=== PATIENT | male | born 1995 | race Caucasian/White ===

== ENCOUNTER 2018-04-25 11:21 | Emergency (ER) | payer SELFPAY ==
[2018-04-25 11:40] VITALS: BP 125/73; PULSE 63; RESP 14; TEMP 36.9; O2SAT 98
--- NOTE | 2018-04-25 12:26 | ED.WOUNDLAC ---
HPI - Wound/Laceration <DEVYN Meyer - Last Filed: 04/25/18 19:12> General Chief Complaint: Wound/Laceration Stated Complaint: CUT HAND OPEN Time Seen by Provider: 04/25/18 12:26 Source: patient Mode of arrival: ambulatory Limitations: no limitations History of Present Illness HPI narrative: Patient states that he cut his hand with a pocket knife at approximately 11:05 a.m. this morning. He states he was trying to cut his bill. Laceration is at the base of the left thumb. Denies any range of motion difficulties. States his tetanus is about 8 or 9 years old and probably needs a new one. Denies any numbness or tingling of his thumb. Related Data Home Medications Medication Instructions Recorded Confirmed No Known Home Medications 03/31/18 04/25/18 Allergies Allergy/AdvReac Type Severity Reaction Status Date / Time bacitracin AdvReac Mild Rash Verified 03/31/18 14:31 [From Neosporin ([id number])] neomycin AdvReac Mild Rash Verified 03/31/18 14:31 [From Neosporin ([id number])] polymyxin B AdvReac Mild Rash Verified 03/31/18 14:31 [From Neosporin ([id number])] Review of Systems <HANNAH Meyer - Last Filed: 04/25/18 19:12> Review of Systems GENERAL: Denies chills, fatigue, malaise, fever, sweats. HEENT: Denies sinus pain, ear pain, sore throat, difficulty swallowing, dizziness. RESPIRATORY: Denies dyspnea, cough, wheezing, hemoptysis, sputum. CARDIOVASCULAR: Denies chest pain, palpitations, orthopnea, edema, GASTROINTESTINAL: Denies nausea, vomiting, abdominal pain, diarrhea, constipation, melena. : Denies dysuria, frequency, incontinence, hematuria, urinary retention. MUSCULOSKELETAL: denies weakness, joint pain, or bony pain SKIN: See HPI NEUROLOGIC: Denies weakness, headache, numbness, change in speech, confusion, seizures, incoordination. PSYCHIATRIC: No concerning psychosocial issues. 12 point review of systems is negative except for those stated above Exam <HANNAH Meyer - Last Filed: 04/25/18 19:12> Narrative Exam Narrative: GENERAL: This is a well-nourished, well-developed patient, in no distress with father at bedside. HEAD: Atraumatic. Normocephalic. No temporal or scalp tenderness. EYES: Pupils equal round and reactive. Extraocular motions intact. No scleral icterus. No injection or drainage. ENT: Nose without bleeding, purulent drainage or septal hematoma. Throat without erythema, tonsillar hypertrophy or exudate. Uvula midline. Airway patent. NECK: Trachea midline. No JVD or lymphadenopathy. Supple, nontender, no meningeal signs. CARDIOVASCULAR: Regular rate and rhythm RESPIRATORY: No increased respiratory effort. No coughing, accessory muscle use in emergency department EXTREMITIES: No clubbing, cyanosis, or edema. No joint tenderness, effusion, or edema noted. Full range of motion with left thumb. Capillary refill less than 2 sec left thumb. BACK: Nontender without deformity or crepitance. No flank tenderness. NEURO: AOx3. SKIN: The patient noted to have approximately 2 cm laceration at the base of his left thumb. It is oozing blood on exam. Appears to be through the dermis. Does not appear to have any tendon involvement. Edges are well approximated. Initial Vital Signs Initial Vital Signs: Vital Signs Temperature 98.5 F 04/25/18 11:40 Pulse Rate 63 04/25/18 11:40 Respiratory Rate 14 04/25/18 11:40 Blood Pressure 125/73 H 04/25/18 11:40 Pulse Oximetry 98 04/25/18 11:40 <Courtney Yu DO - Last Filed: 04/26/18 07:26> Initial Vital Signs Initial Vital Signs: Vital Signs Temperature 98.5 F 04/25/18 11:40 Pulse Rate 63 04/25/18 11:40 Respiratory Rate 14 04/25/18 11:40 Blood Pressure 125/73 H 04/25/18 11:40 Pulse Oximetry 98 04/25/18 11:40 Procedures <DEVYN Meyer - Last Filed: 04/25/18 19:12> Joint Aspiration/Injection Laceration 1: Site: hand Side (If applicable): left Size (cm): 2 Description: linear Depth: simple, single layer Local Anesthetic: lidocaine 2% Amount of anesthesia used (mL): 2 Pre-repair: wound explored, irrigated extensively and deep structures intact Skin layer closed with: nylon Size (cm): 5-0 Number of sutures: 4 Technique: simple, interrupted Course <HANNAH MeyerBC - Last Filed: 04/25/18 19:12> Hospital Course: Patient presents with laceration. His wound was numbed, cleaned, explored and closed as documented in laceration repair procedure. His tetanus was updated. I discussed at length with him monitoring for signs and symptoms of infection including redness, pus from the site. Patient and father had no questions or concerns upon discharge. Orders Ordered: Discontinued Medications Tetanus/Diphtheria Toxoids (Td) 0.5 ml IM .ONCE ONE Stop: 04/25/18 12:45 Last Admin: 04/25/18 13:24 Dose: 0.5 ml Vital Signs - 8 hr 04/25/18 11:40 04/25/18 13:48 Temperature 98.5 F Pulse Rate 63 74 Respiratory Rate 14 16 Blood Pressure 125/73 H 120/72 Pulse Oximetry 98 98 <Courtney Yu DO - Last Filed: 04/26/18 07:26> Orders Ordered: Discontinued Medications Tetanus/Diphtheria Toxoids (Td) 0.5 ml IM .ONCE ONE Stop: 04/25/18 12:45 Last Admin: 04/25/18 13:24 Dose: 0.5 ml Vital Signs - 8 hr 04/25/18 11:40 04/25/18 13:48 Temperature 98.5 F Pulse Rate 63 74 Respiratory Rate 14 16 Blood Pressure 125/73 H 120/72 Pulse Oximetry 98 98 MDM - Wound/Laceration <HANNAH MeyerBC - Last Filed: 04/25/18 19:12> Differential Diagnosis Differential diagnosis: Likely laceration MDM Narrative Medical decision making narrative: Patient presented with a simple, clean laceration was left hand at the base of his thumb. He had full range of motion and the wound did not involve deep layers. It was closed as noted in the procedural note. His tetanus was updated as well. I discussed at length with him signs and symptoms of infection and he had no questions or concerns upon discharge. Discharge Plan Departure Patient Disposition: Home, Self-Care Clinical Impression: Laceration Discharge Date/Time: 04/25/18 13:49 Interventions: ED Discharge Assessment Last Done: 04/25/18 13:48 Instructions: How to Care for a Laceration After Repair, DI for Laceration Repair -- Simple Activity Restrictions/Additional Instructions: Today I did 4 stitches at the base of her thumb. Please monitor your laceration for signs and symptoms of infection. This includes streaking redness or pus coming from the incision site. Please follow-up in about 7 days for suture removal. He can do this with her primary care provider or feel free to come back here. We also updated your tetanus. Prescriptions: No Action No Known Home Medications RF: 0 Stand Alone Forms: Work/School Restrictions <Courtney Yu DO - Last Filed: 04/26/18 07:26> Cosign ED Attending Loydature Attestation: I was immediately available in the department for consultation. Documentation has been reviewed. I agree with assessment and plan.
[2018-04-25] MEDS: TETANUS DIPHTHERIA TOXOIDS 0.5 ML VIAL IM (13:24)
[2018-04-25 13:48] VITALS: BP 120/72; PULSE 74; RESP 16; O2SAT 98
== END 2018-04-25 13:49 | disposition home or self-care (01) ==
PROVIDERS: Emergency Provider Nurse Practitioner Family
DX: S61.412A Laceration without foreign body of left hand, initial encounter (principal); W26.0XXA Contact with knife, initial encounter
CPT/HCPCS: 12001; 90471; 90714; 99283

== ENCOUNTER → 2018-12-18 11:42 | Outpatient (CLI) | payer OTHER, SELFPAY ==
--- NOTE | 2018-12-18 11:44 | DI.RAD.S_ITS ---
PROCEDURE: XR SHOULDER RT MIN 2V INDICATIONS: R shoulder pain TECHNIQUE: 3 views of the shoulder were acquired. COMPARISON: None. FINDINGS: Bones: No fractures or dislocations. No suspicious bony lesions. Visualized ribs appear intact. Soft tissues: No suspicious soft tissue calcifications. IMPRESSION: No acute osseous abnormality of the right shoulder. Dictated by: Tin Patricio M.D. on 12/18/2018 at 10:56 Approved by: Tin Patricio M.D. on 12/18/2018 at 10:57
== END ==
PROVIDERS: Visit Provider Physician Assistant
DX: M25.511 Pain in right shoulder (principal)
CPT/HCPCS: 73030

== ENCOUNTER → 2018-12-25 16:25 | Outpatient (CLI) | payer OTHER, SELFPAY ==
--- NOTE | 2018-12-25 16:26 | DI.MRI.S_ITS ---
PROCEDURE: MR SHOULDER RT WO CON INDICATIONS: Right shoulder pain TECHNIQUE: Noncontrast oblique coronal T2 fast spin echo with fat saturation, oblique sagittal T1 spin echo and T2 fast spin echo with fat saturation, axial T1 spin echo and T2 fast spin echo with fat saturation through the shoulder. COMPARISON: [facility], CR, XR SHOULDER RT MIN 2V, 12/18/2018, 11:42. FINDINGS: Image quality: Excellent. Rotator cuff: There is partial thickness tear involving the bursal surface of the distal supraspinatus tendon. The infraspinatus and subscapularis tendons appear intact throughout. Sagittal images demonstrate no muscle atrophy. Bones and bursae: No bone marrow contusions or fractures. No acromioclavicular joint degeneration. The acromion demonstrates conventional anatomy, without an os acromiale. No pathologic subacromial-subdeltoid or subcoracoid bursal fluid is present. Capsule and soft tissues: In the absence of intra-articular contrast, the labrum and glenohumeral ligaments appear intact. The long head of the biceps tendon demonstrates normal location and morphology. The rotator interval appears normal, without fibrosis. The coracohumeral ligament is normal in thickness. IMPRESSION: 1. Partial thickness tear of the supraspinatus tendon. No tendon retraction or supraspinatus muscle atrophy. Dictated by: Eric Sommers M.D. on 12/26/2018 at 10:51 Approved by: Eric Sommers M.D. on 12/26/2018 at 18:11
== END ==
PROVIDERS: Visit Provider Physician Assistant
DX: M25.511 Pain in right shoulder (principal); M75.111 Incomplete rotator cuff tear or rupture of right shoulder, not specified as traumatic
CPT/HCPCS: 73221

== ENCOUNTER 2019-08-02 12:00 | Outpatient (RCR) | payer OTHER, SELFPAY ==
--- NOTE | 2019-01-23 17:34 | PT.OPPOC ---
Current Diagnoses Strain of unspecified muscle, fascia and tendon at shoulder and upper arm level, right arm, initial encounter (01/23/19) Provider Visit Care Team Role Provider Type Gia Zaman PA-C Attending Provider Advanced Director Nicu Specialty: Medical Address: [address] [place] [address], [facility] Email: Plan Of Care PT-OP-T Assessment and Plan Start: 01/23/19 17:02 Freq: Status: Active Protocol: Document 01/23/19 17:03 EA (Rec: 01/23/19 17:40 EA [id number]) Physical Therapy Assessment Rehab Potential Rehabilitation Potential Good Evaluation Complexity Number of Personal Factors/Comorbidities 0 Number of Body Systems Impaired 1-2 Clinical Presentation at Evaluation Stable Impairments Impairments Functional Activities Pain ROM Soft Tissue Mobility Strength Goals Four Impairment NO HEP in place Fci Goal (LTG) Patient will perform HEP (Home exercise program) independently LTG Duration 3 wks Three Impairment Impaired shoulder strength Fci Goal (LTG) Patient will increase shoulder ABD/F/ER strength by 1/2 grade for arm functional use. LTG Duration 4 wks Two Impairment Impaired left shoulder ROM Senior Supplier Quality Engineer Goal (LTG) Patient will increase left shoulder flexion/ABD/ER AROM to functional range to enhance shoulder functional mobility LTG Duration 4 wks One Impairment quick Dash functional UE score of 70 Fci Goal (LTG) Patient will have Quick Dask functional score of 35 LTG Duration 4 wks Assessment Summary Assessment Pleasant 23 y/o M patient with a referring diagnosis of right shoulder strain. Today patient demonstrates impaired L shoulder mobility due to weakness, pain, and decreased ROM. Ocular inspections reveals arm is protected to side with decreased arm swing. No atrophy noted at this time . Left shoulder AROM motion reveals less than functional overhead range and with muscle guarding during PROM. Special tests reveals positive with Dow, Lift off and pain at painful arc range. Due to above mentioned dysfunction, patient is unable to perform activities that require pulling and lifting over shoulder and head. Patient is a good candidate for skilled PT and likely will reach functional goals. Physical Therapy Plan Frequency and Duration Frequency of Treatment 2x/Week Duration of Treatment 8 wks Plan of Care Start Date 01/23/19 Plan of Care End Date 03/20/19 Therapeutic Interventions Therapeutic Interventions Home Exercise Program Joint Mobilizations Manual Therapy Patient/Caregiver Education Self-Care/Home Management Soft Tissue Mobilization Taping Therapeutic Exercises Modalities Cold Pack/Ice Massage Electric Stimulation Hot Packs Ultrasound Next Visit Focus/Plan Next Note Type Treatment Note Next Visit Plan Provide HEP with images (ROM exercises/stretching), decrease pain by using modalities, joint mobilization for pain/muscle guarding Plan of Care Dates Plan of Care Start Date 01/23/19 Plan of Care End Date 03/20/19 Please Sign and Return: I have reviewed this Plan of Care and certify that the skilled therapy services above are required to meet the patient?s needs. Physician Signature Date Printed Name and Credentials Clinical Instructor Signature Printed Name and Credentials
--- NOTE | 2019-01-23 17:34 | PT.OIE ---
Current Diagnoses Strain of unspecified muscle, fascia and tendon at shoulder and upper arm level, right arm, initial encounter (01/23/19) Past Medical History (Last Updated 03/31/18 @ 17:21 by Graciela Graham PA-C) Diarrhea (Chronic) Past Surgical History (Last Updated 03/31/18 @ 17:21 by Graciela Graham PA-C) Hx of cholecystectomy (Chronic) Provider Visit Care Team Role Provider Type Gia Zaman PA-C Attending Provider Advanced Nursing Associate Specialty: Medical Address: [address] [place] [address], [facility] Email: Physical Therapy Initial Evaluation PT-OP-A Visit Information Start: 01/23/19 17:02 Freq: Status: Active Protocol: Document 01/23/19 17:03 EA (Rec: 01/23/19 17:40 EA [id number]) Out-Patient Physical Therapy Visit Information Visit Information Visit Type Initial Evaluation Visit Start Time 16:00 Visit Stop Time 16:45 Total Visit Minutes 45 Visit Number 1 Evaluation Information Evaluation Date 01/23/19 PT-OP-B Current Condition Start: 01/23/19 17:02 Freq: Status: Active Protocol: Document 01/23/19 17:03 EA (Rec: 01/23/19 17:40 EA [id number]) Current Condition History of Current Condition Onset Date 12/14/2018 Current Complaints Left shoulder elevation difficulty due to pain and weakness History of Current Condition Patient reports present condition started 12/14/18 while lifting box of powder with 50 lbs weight to transfer to mixer; he states that popped sound felt accompanied with pain and numbness to right shoulder and arm. Patient reports incident report filed and work for three more days. Pt mentioned pain and weakness did not resolved and prompted him to see a doctor which given pain meds and ordered X-ray and MRI . Prior Treatments and Tests MRI: reveals partial tear to right SS Future Testing and Treatments Planned None identified Treatment Goals Patient/Caregiver Goals Patient wants to get back to previous level of function Prior Functional Status Baseline Function- ADL's Independent Baseline Function- Mobility Independent Baseline Function- Gait indep Baseline Function- Work/School Works active with lots of lifting, pulling and pushing. Baseline Function- Recreation/Hobbies Home personal fitness workout Current Functional Impairments (Reported) Functional Limitations- ADL's Difficulty in all activities that requires shoulder overhead movements, lifting, pulling and pushing. Functional Limitations- Mobility/Gait Indep Functional Limitations- Work/School Out of work 3 days after the injury until to this date. Functional Limitations- Recreation/ Unable to perform personal Hobbies fitness program PT-OP-C Subjective Start: 01/23/19 17:02 Freq: Status: Active Protocol: Document 01/23/19 17:03 EA (Rec: 01/23/19 17:40 EA [id number]) OP-PT Subjective Patient Comments Patient Comments Patients wants to get back to previous level of function. Patient Reported Progress Same Patient Questionnaires Quick Dash- Upper Extremity Quick Dash UE Score 70 Quick Dash UE Impairment 60 to 79% Impaired (Score 60- 79) PT-OP-E Functional Tests Start: 01/23/19 17:02 Freq: Status: Active Protocol: Document 01/23/19 17:03 EA (Rec: 01/23/19 17:40 EA [id number]) Functional Tests Apley's Scratch Test Action 1: The subject is instructed to touch the opposite shoulder with his/her hand. This motion checks Glenohumeral adduction, internal rotation , horizontal adduction and scapular protraction Action 2: The subject is instructed to place his/her arm overhead and reach behind the neck to touch his/her upper back. This motion checks Glenohumeral abduction, external rotation and scapular upward rotation and elevation. Action 3: The subject puts his/her hand on the lower back and reaches upward as far as possible. This motion checks glenohumeral adduction, internal rotation and scapular retraction with downward rotation Action 1- Left able Action 1- Right able Action 2- Left T2 Action 2- Right C7 Action 3- Left T4 Action 3- Right L1 PT-OP-F Manual Assessment Start: 01/23/19 17:02 Freq: Status: Active Protocol: Document 01/23/19 17:03 EA (Rec: 01/23/19 17:40 EA [id number]) Manual Assessments Soft Tissue Assessment Soft Tissue Mobility Assessment Tight right shoulder adductors , anterior capsules. Joint Mobility Assessment Joint Mobility Assessment Hypo (Muscle guarding) PT-OP-J Posture/Palpation/Skin Start: 01/23/19 17:02 Freq: Status: Active Protocol: Document 01/23/19 17:03 EA (Rec: 01/23/19 17:40 EA [id number]) Posture Evaluation Position Standing Evaluation View post/lat Head/C-Spine Posture Forward Head T-Spine Posture Neutral L-Spine Posture Neutral Shoulder Posture (R) Rounded Comments Posture Comments Slight forward head with WFL trunk posture. Palpation Assessment Location One Palpation Location right shoulder: anterior/post/ lateral Palpation Findings Soft Tissue Tightness Tenderness Palpation Details grade 3/4 tender over SS/IS tendon, subacromial joint, and right scapular muscle PT-OP-K Range of Motion Start: 01/23/19 17:02 Freq: Status: Active Protocol: Document 01/23/19 17:03 EA (Rec: 01/23/19 17:40 EA [id number]) Shoulder Goniometric Range of Motion Shoulder Measured in Degrees Right Active Testing Position sitting and supine Flexion 100 Extension 45 Abduction 90 External Rotation at 90 degrees 80 Abduction Internal Rotation 30 Shoulder ROM Limitations Shoulder ROM Limitations Soft Tissue Tightness Muscle Weakness Pain PT-OP-L Special Tests Start: 01/23/19 17:02 Freq: Status: Active Protocol: Document 01/23/19 17:03 EA (Rec: 01/23/19 17:40 EA [id number]) Special Tests Shoulder Special Tests Lift-Off Rotator Cuff Test Results + Belly Press Test Results + Drop Arm Rotator Cuff Test Results - Empty Can Test Results + PT-OP-M Strength Start: 01/23/19 17:02 Freq: Status: Active Protocol: Document 01/23/19 17:03 EA (Rec: 01/23/19 17:40 EA [id number]) Shoulder Strength Shoulder Manual Muscle Testing Right Flexion 3+ Fair+ Extension 4- Good- Abduction (C5) 3+ Fair+ Adduction 4- Good- External Rotation 3+ Fair+ Internal Rotation 3+ Fair+ Horizontal Abduction 4- Good- Horizontal Adduction 4- Good- Comments Weakness maybe due to pain and muscle guarding Left Reason Not Measured WFL PT-OP-Q Treatments Start: 01/23/19 17:02 Freq: Status: Active Protocol: Document 01/23/19 17:03 EA (Rec: 01/23/19 17:40 EA [id number]) Self-Care/Home Management Treatment Education Patient Education Home Exercise Program Pain Management PT-OP-R Modalities Start: 01/23/19 17:02 Freq: Status: Active Protocol: Document 01/23/19 17:03 EA (Rec: 01/23/19 17:40 EA [id number]) Electric Stimulation Electric Stimulation Interferential Current (IFC) Body Location right SS/ant deltoid/traps Duration (Minutes) 15 Intensity 12 Contraction Type Normal Combined With Heat/Cold Cold Pack PT-OP-T Assessment and Plan Start: 01/23/19 17:02 Freq: Status: Active Protocol: Document 01/23/19 17:03 EA (Rec: 01/23/19 17:40 EA [id number]) Physical Therapy Assessment Rehab Potential Rehabilitation Potential Good Evaluation Complexity Number of Personal Factors/Comorbidities 0 Number of Body Systems Impaired 1-2 Clinical Presentation at Evaluation Stable Impairments Impairments Functional Activities Pain ROM Soft Tissue Mobility Strength Goals Four Impairment NO HEP in place Drier Operator Goal (LTG) Patient will perform HEP (Home exercise program) independently LTG Duration 3 wks Three Impairment Impaired shoulder strength Correction Goal (LTG) Patient will increase shoulder ABD/F/ER strength by 1/2 grade for arm functional use. LTG Duration 4 wks Two Impairment Impaired left shoulder ROM Correction Goal (LTG) Patient will increase left shoulder flexion/ABD/ER AROM to functional range to enhance shoulder functional mobility LTG Duration 4 wks One Impairment quick Dash functional UE score of 70 Drier Operator Goal (LTG) Patient will have Quick Dask functional score of 35 LTG Duration 4 wks Assessment Summary Assessment Pleasant 23 y/o M patient with a referring diagnosis of right shoulder strain. Today patient demonstrates impaired L shoulder mobility due to weakness, pain, and decreased ROM. Ocular inspections reveals arm is protected to side with decreased arm swing. No atrophy noted at this time . Left shoulder AROM motion reveals less than functional overhead range and with muscle guarding during PROM. Special tests reveals positive with Dow, Lift off and pain at painful arc range. Due to above mentioned dysfunction, patient is unable to perform activities that require pulling and lifting over shoulder and head. Patient is a good candidate for skilled PT and likely will reach functional goals. Physical Therapy Plan Frequency and Duration Frequency of Treatment 2x/Week Duration of Treatment 8 wks Plan of Care Start Date 01/23/19 Plan of Care End Date 03/20/19 Therapeutic Interventions Therapeutic Interventions Home Exercise Program Joint Mobilizations Manual Therapy Patient/Caregiver Education Self-Care/Home Management Soft Tissue Mobilization Taping Therapeutic Exercises Modalities Cold Pack/Ice Massage Electric Stimulation Hot Packs Ultrasound Next Visit Focus/Plan Next Note Type Treatment Note Next Visit Plan Provide HEP with images (ROM exercises/stretching), decrease pain by using modalities, joint mobilization for pain/muscle guarding
--- NOTE | 2019-01-25 17:03 | PT.OTN ---
Current Diagnoses Strain of unspecified muscle, fascia and tendon at shoulder and upper arm level, right arm, initial encounter (01/25/19) Physical Therapy Treatment Note PT-OP-A Visit Information Start: 01/23/19 17:02 Freq: Status: Active Protocol: Document 01/25/19 16:00 HH (Rec: 01/25/19 17:02 HH [email or web address]) Out-Patient Physical Therapy Visit Information Visit Information Visit Type Treatment Note Visit Start Time 16:00 Visit Stop Time 16:50 Total Visit Minutes 50 Visit Number 2 PT-OP-B Current Condition Start: 01/23/19 17:02 Freq: Status: Active Protocol: Document 01/23/19 17:03 EA (Rec: 01/23/19 17:40 EA [id number]) Current Condition History of Current Condition Onset Date 12/14/2018 Current Complaints Left shoulder elevation difficulty due to pain and weakness History of Current Condition Patient reports present condition started 12/14/18 while lifting box of powder with 50 lbs weight to transfer to mixer; he states that popped sound felt accompanied with pain and numbness to right shoulder and arm. Patient reports incident report filed and work for three more days. Pt mentioned pain and weakness did not resolved and prompted him to see a doctor which given pain meds and ordered X-ray and MRI . Prior Treatments and Tests MRI: reveals partial tear to right SS Future Testing and Treatments Planned None identified Treatment Goals Patient/Caregiver Goals Patient wants to get back to previous level of function Prior Functional Status Baseline Function- ADL's Independent Baseline Function- Mobility Independent Baseline Function- Gait indep Baseline Function- Work/School Works active with lots of lifting, pulling and pushing. Baseline Function- Recreation/Hobbies Home personal fitness workout Current Functional Impairments (Reported) Functional Limitations- ADL's Difficulty in all activites that requires shoulder overhead movements, lifting, pulling and pushing. Functional Limitations- Mobility/Gait Indep Functional Limitations- Work/School Out of work 3 days after the injury until to this date. Functional Limitations- Recreation/ Unable to perform personal Hobbies fitness program PT-OP-C Subjective Start: 01/23/19 17:02 Freq: Status: Active Protocol: Document 01/25/19 16:00 HH (Rec: 01/25/19 17:02 HH [email or web address]) OP-PT Subjective Patient Comments Patient Comments My R shoulder is still very painful and sore. AROM HEP gives me 9/10 pain. PT-OP-E Functional Tests Start: 01/23/19 17:02 Freq: Status: Active Protocol: Document 01/23/19 17:03 EA (Rec: 01/23/19 17:40 EA [id number]) Functional Tests Apley's Scratch Test Action 1: The subject is instructed to touch the opposite shoulder with his/her hand. This motion checks Glenohumeral adduction, internal rotation , horizontal adduction and scapular protraction Action 2: The subject is instructed to place his/her arm overhead and reach behind the neck to touch his/her upper back. This motion checks Glenohumeral abduction, external rotation and scapular upward rotation and elevation. Action 3: The subject puts his/her hand on the lower back and reaches upward as far as possible. This motion checks glenohumeral adduction, internal rotation and scapular retraction with downward rotation Action 1- Left able Action 1- Right able Action 2- Left T2 Action 2- Right C7 Action 3- Left T4 Action 3- Right L1 PT-OP-F Manual Assessment Start: 01/23/19 17:02 Freq: Status: Active Protocol: Document 01/23/19 17:03 EA (Rec: 01/23/19 17:40 EA [id number]) Manual Assessments Soft Tissue Assessment Soft Tissue Mobility Assessment Tight right shoulder adductors , anterior capsules. Joint Mobility Assessment Joint Mobility Assessment Hypo (Muscle guarding) PT-OP-J Posture/Palpation/Skin Start: 01/23/19 17:02 Freq: Status: Active Protocol: Document 01/23/19 17:03 EA (Rec: 01/23/19 17:40 EA [id number]) Posture Evaluation Position Standing Evaluation View post/lat Head/C-Spine Posture Forward Head T-Spine Posture Neutral L-Spine Posture Neutral Shoulder Posture (R) Rounded Comments Posture Comments Slight forward head with WFL trunk posture. Palpation Assessment Location One Palpation Location right shoulder: anterior/post/ lateral Palpation Findings Soft Tissue Tightness Tenderness Palpation Details grade 3/4 tender over SS/IS tendon, subacromial joint, and right scapular muscle PT-OP-K Range of Motion Start: 01/23/19 17:02 Freq: Status: Active Protocol: Document 01/23/19 17:03 EA (Rec: 02/26/19 17:40 EA [id number]) Shoulder Goniometric Range of Motion Shoulder Measured in Degrees Right Active Testing Position sitting and supine Flexion 100 Extension 45 Abduction 90 External Rotation at 90 degrees 80 Abduction Internal Rotation 30 Shoulder ROM Limitations Shoulder ROM Limitations Soft Tissue Tightness Muscle Weakness Pain PT-OP-L Special Tests Start: 01/23/19 17:02 Freq: Status: Active Protocol: Document 01/23/19 17:03 EA (Rec: 01/23/19 17:40 EA [id number]) Special Tests Shoulder Special Tests Lift-Off Rotator Cuff Test Results + Belly Press Test Results + Drop Arm Rotator Cuff Test Results - Empty Can Test Results + PT-OP-M Strength Start: 01/23/19 17:02 Freq: Status: Active Protocol: Document 01/23/19 17:03 EA (Rec: 01/23/19 17:40 EA [id number]) Shoulder Strength Shoulder Manual Muscle Testing Right Flexion 3+ Fair+ Extension 4- Good- Abduction (C5) 3+ Fair+ Adduction 4- Good- External Rotation 3+ Fair+ Internal Rotation 3+ Fair+ Horizontal Abduction 4- Good- Horizontal Adduction 4- Good- Comments Weakness maybe due to pain and muscle guarding Left Reason Not Measured WFL PT-OP-Q Treatments Start: 01/23/19 17:02 Freq: Status: Active Protocol: Document 01/25/19 16:00 HH (Rec: 01/25/19 17:02 HH [email or web address]) Therapeutic Exercises Sitting Exercises scapular roll Side bilateral Comments as tolerated nohelia Side right Comments scaption, abduction, flexion to tolerance table slide Side right Comments scaption, abduction, flexion with L UE on table for support Manual Therapy Treatment Soft Tissue Mobilization STM Body Location pecs, proximal SS, RTC Mobilization Type Cross-Friction Sustained Pressure Trigger Point Release Intensity/Depth Moderate Body Position Sitting PT-OP-R Modalities Start: 01/23/19 17:02 Freq: Status: Active Protocol: Document 01/23/19 17:03 EA (Rec: 01/23/19 17:40 EA [id number]) Electric Stimulation Electric Stimulation Interferential Current (IFC) Body Location right SS/ant deltoid/traps Duration (Minutes) 15 Intensity 12 Contraction Type Normal Combined With Heat/Cold Cold Pack PT-OP-T Assessment and Plan Start: 01/23/19 17:02 Freq: Status: Active Protocol: Document 01/25/19 16:00 (Rec: 01/25/19 17:02 [email or web address]) Physical Therapy Assessment Assessment Summary Assessment Pt cont presents significant pain with AROM but slight decrease with AAROM/ PROM. Pt seems to have less pain in scaption. Modified ROM exercise to table slide with towel. Pt was able to reach scaption ~100-120 degrees. Pt also cont presents significant muscle guarding and occasional spasm during manual therapy. Physical Therapy Plan Next Visit Focus/Plan Next Note Type Treatment Note Next Visit Plan Reassess HEP table slide. decrease pain by using modalities, joint mobilization for pain/muscle guarding
--- NOTE | 2019-02-01 16:47 | PT.OTN ---
Current Diagnoses Strain of unspecified muscle, fascia and tendon at shoulder and upper arm level, right arm, initial encounter (02/01/19) Physical Therapy Treatment Note PT-OP-A Visit Information Start: 01/23/19 17:02 Freq: Status: Active Protocol: Document 02/01/19 16:33 EA (Rec: 02/01/19 16:43 EA [id number]) Out-Patient Physical Therapy Visit Information Visit Information Visit Type Treatment Note Visit Start Time 16:00 Visit Stop Time 16:50 Total Visit Minutes 53 Visit Number 3 PT-OP-B Current Condition Start: 01/23/19 17:02 Freq: Status: Active Protocol: Document 01/23/19 17:03 EA (Rec: 01/23/19 17:40 EA [id number]) Current Condition History of Current Condition Onset Date 12/14/2018 Current Complaints Left shoulder elevation difficulty due to pain and weakness History of Current Condition Patient reports present condition started 12/14/18 while lifting box of powder with 50 lbs weight to transfer to mixer; he states that popped sound felt accompanied with pain and numbness to right shoulder and arm. Patient reports incident report filed and work for three more days. Pt mentioned pain and weakness did not resolved and prompted him to see a doctor which given pain meds and ordered X-ray and MRI . Prior Treatments and Tests MRI: reveals partial tear to right SS Future Testing and Treatments Planned None identified Treatment Goals Patient/Caregiver Goals Patient wants to get back to previous level of function Prior Functional Status Baseline Function- ADL's Independent Baseline Function- Mobility Independent Baseline Function- Gait indep Baseline Function- Work/School Works active with lots of lifting, pulling and pushing. Baseline Function- Recreation/Hobbies Home personal fitness workout Current Functional Impairments (Reported) Functional Limitations- ADL's Difficulty in all activites that requires shoulder overhead movements, lifting, pulling and pushing. Functional Limitations- Mobility/Gait Indep Functional Limitations- Work/School Out of work 3 days after the injury until to this date. Functional Limitations- Recreation/ Unable to perform personal Hobbies fitness program PT-OP-C Subjective Start: 01/23/19 17:02 Freq: Status: Active Protocol: Document 02/01/19 16:33 EA (Rec: 02/01/19 16:43 EA [id number]) OP-PT Subjective Patient Comments Patient Comments Pt reports my right shoulder is sore after doing HEP regulalry. Pt states table slides aggravated his shoulder . PT-OP-E Functional Tests Start: 01/23/19 17:02 Freq: Status: Active Protocol: Document 01/23/19 17:03 EA (Rec: 01/23/19 17:40 EA [id number]) Functional Tests Apley's Scratch Test Action 1: The subject is instructed to touch the opposite shoulder with his/her hand. This motion checks Glenohumeral adduction, internal rotation , horizontal adduction and scapular protraction Action 2: The subject is instructed to place his/her arm overhead and reach behind the neck to touch his/her upper back. This motion checks Glenohumeral abduction, external rotation and scapular upward rotation and elevation. Action 3: The subject puts his/her hand on the lower back and reaches upward as far as possible. This motion checks glenohumeral adduction, internal rotation and scapular retraction with downward rotation Action 1- Left able Action 1- Right able Action 2- Left T2 Action 2- Right C7 Action 3- Left T4 Action 3- Right L1 PT-OP-F Manual Assessment Start: 01/23/19 17:02 Freq: Status: Active Protocol: Document 01/23/19 17:03 EA (Rec: 01/23/19 17:40 EA [id number]) Manual Assessments Soft Tissue Assessment Soft Tissue Mobility Assessment Tight right shoulder adductors , anterior capsules. Joint Mobility Assessment Joint Mobility Assessment Hypo (Muscle guarding) PT-OP-J Posture/Palpation/Skin Start: 01/23/19 17:02 Freq: Status: Active Protocol: Document 01/23/19 17:03 EA (Rec: 01/23/19 17:40 EA [id number]) Posture Evaluation Position Standing Evaluation View post/lat Head/C-Spine Posture Forward Head T-Spine Posture Neutral L-Spine Posture Neutral Shoulder Posture (R) Rounded Comments Posture Comments Slight forward head with WFL trunk posture. Palpation Assessment Location One Palpation Location right shoulder: anterior/post/ lateral Palpation Findings Soft Tissue Tightness Tenderness Palpation Details grade 3/4 tender over SS/IS tendon, subacromial joint, and right scapular muscle PT-OP-K Range of Motion Start: 01/23/19 17:02 Freq: Status: Active Protocol: Document 01/23/19 17:03 EA (Rec: 01/23/19 17:40 EA [id number]) Shoulder Goniometric Range of Motion Shoulder Measured in Degrees Right Active Testing Position sitting and supine Flexion 100 Extension 45 Abduction 90 External Rotation at 90 degrees 80 Abduction Internal Rotation 30 Shoulder ROM Limitations Shoulder ROM Limitations Soft Tissue Tightness Muscle Weakness Pain PT-OP-L Special Tests Start: 01/23/19 17:02 Freq: Status: Active Protocol: Document 01/23/19 17:03 EA (Rec: 01/23/19 17:40 EA [id number]) Special Tests Shoulder Special Tests Lift-Off Rotator Cuff Test Results + Belly Press Test Results + Drop Arm Rotator Cuff Test Results - Empty Can Test Results + PT-OP-M Strength Start: 01/23/19 17:02 Freq: Status: Active Protocol: Document 01/23/19 17:03 EA (Rec: 01/23/19 17:40 EA [id number]) Shoulder Strength Shoulder Manual Muscle Testing Right Flexion 3+ Fair+ Extension 4- Good- Abduction (C5) 3+ Fair+ Adduction 4- Good- External Rotation 3+ Fair+ Internal Rotation 3+ Fair+ Horizontal Abduction 4- Good- Horizontal Adduction 4- Good- Comments Weakness maybe due to pain and muscle guarding Left Reason Not Measured WFL PT-OP-Q Treatments Start: 01/23/19 17:02 Freq: Status: Active Protocol: Document 02/01/19 16:33 EA (Rec: 02/01/19 16:43 EA [id number]) Therapeutic Exercises Supine Exercises 4 Supine Exercise Name Horiz ABD Reps/Minutes x 15 reps x2 3 Supine Exercise Name t-bar ER Reps/Minutes x 15 reps x 2 2 Supine Exercise Name T-bar press Reps/Minutes x 15 reps x 2 1 Supine Exercise Name T-bars flexion Reps/Minutes x15 reps x 2 Prone Exercises 1 Prone Exercise Name t-bar ext Reps/Minutes x 15 reps Sidelying Exercises 1 Sidelying Exercise Name ABD, D1 directions, horiz ABD Reps/Minutes x 15 reps each Sitting Exercises scapular roll Side bilateral Comments as tolerated nohelia Side right Comments scaption, abduction, flexion to tolerance Standing Exercises 1 Standing Exercise Name wall slides: Flexion Reps/Minutes x 20 reps x 2 PT-OP-R Modalities Start: 01/23/19 17:02 Freq: Status: Active Protocol: Document 02/01/19 16:33 EA (Rec: 02/01/19 16:43 EA [id number]) Electric Stimulation Electric Stimulation Interferential Current (IFC) Body Location right SS/ant deltoid/traps Duration (Minutes) 15 Intensity 12 Contraction Type Normal Combined With Heat/Cold Cold Pack PT-OP-T Assessment and Plan Start: 01/23/19 17:02 Freq: Status: Active Protocol: Document 02/01/19 16:33 EA (Rec: 02/01/19 16:43 EA [id number]) Physical Therapy Assessment Assessment Summary Assessment Wall slides shows full ROM at this time with mild discomfort at end range. Physical Therapy Plan Next Visit Focus/Plan Next Note Type Treatment Note
--- NOTE | 2019-02-09 12:54 | PT.OTN ---
Current Diagnoses Strain of unspecified muscle, fascia and tendon at shoulder and upper arm level, right arm, initial encounter (02/09/19) Physical Therapy Treatment Note PT-OP-A Visit Information Start: 01/23/19 17:02 Freq: Status: Active Protocol: Document 02/09/19 12:00 DCW (Rec: 02/09/19 12:54 DCW [id number]) Out-Patient Physical Therapy Visit Information Visit Information Visit Type Treatment Note Visit Start Time 12:00 Visit Stop Time 12:45 Total Visit Minutes 45 Visit Number 4 PT-OP-B Current Condition Start: 01/23/19 17:02 Freq: Status: Active Protocol: Document 01/23/19 17:03 EA (Rec: 01/23/19 17:40 EA [id number]) Current Condition History of Current Condition Onset Date 12/14/2018 Current Complaints Left shoulder elevation difficulty due to pain and weakness History of Current Condition Patient reports present condition started 12/14/18 while lifting box of powder with 50 lbs weight to transfer to mixer; he states that popped sound felt accompanied with pain and numbness to right shoulder and arm. Patient reports incident report filed and work for three more days. Pt mentioned pain and weakness did not resolved and prompted him to see a doctor which given pain meds and ordered X-ray and MRI . Prior Treatments and Tests MRI: reveals partial tear to right SS Future Testing and Treatments Planned None identified Treatment Goals Patient/Caregiver Goals Patient wants to get back to previous level of function Prior Functional Status Baseline Function- ADL's Independent Baseline Function- Mobility Independent Baseline Function- Gait indep Baseline Function- Work/School Works active with lots of lifting, pulling and pushing. Baseline Function- Recreation/Hobbies Home personal fitness workout Current Functional Impairments (Reported) Functional Limitations- ADL's Difficulty in all activites that requires shoulder overhead movements, lifting, pulling and pushing. Functional Limitations- Mobility/Gait Indep Functional Limitations- Work/School Out of work 3 days after the injury until to this date. Functional Limitations- Recreation/ Unable to perform personal Hobbies fitness program PT-OP-C Subjective Start: 01/23/19 17:02 Freq: Status: Active Protocol: Document 02/09/19 12:00 DCW (Rec: 02/09/19 12:54 DCW [id number]) OP-PT Subjective Patient Comments Patient Comments Pt reports the ROM seems to be improving, but he cannot get the pain to decrease. Notes that it is a constant 8/10, but will increase to a 9-10/10 following his HEP. PT-OP-E Functional Tests Start: 01/23/19 17:02 Freq: Status: Active Protocol: Document 01/23/19 17:03 EA (Rec: 01/23/19 17:40 EA [id number]) Functional Tests Apley's Scratch Test Action 1: The subject is instructed to touch the opposite shoulder with his/her hand. This motion checks Glenohumeral adduction, internal rotation , horizontal adduction and scapular protraction Action 2: The subject is instructed to place his/her arm overhead and reach behind the neck to touch his/her upper back. This motion checks Glenohumeral abduction, external rotation and scapular upward rotation and elevation. Action 3: The subject puts his/her hand on the lower back and reaches upward as far as possible. This motion checks glenohumeral adduction, internal rotation and scapular retraction with downward rotation Action 1- Left able Action 1- Right able Action 2- Left T2 Action 2- Right C7 Action 3- Left T4 Action 3- Right L1 PT-OP-F Manual Assessment Start: 01/23/19 17:02 Freq: Status: Active Protocol: Document 01/23/19 17:03 EA (Rec: 01/23/19 17:40 EA [id number]) Manual Assessments Soft Tissue Assessment Soft Tissue Mobility Assessment Tight right shoulder adductors , anterior capsules. Joint Mobility Assessment Joint Mobility Assessment Hypo (Muscle guarding) PT-OP-J Posture/Palpation/Skin Start: 01/23/19 17:02 Freq: Status: Active Protocol: Document 01/23/19 17:03 EA (Rec: 01/23/19 17:40 EA [id number]) Posture Evaluation Position Standing Evaluation View post/lat Head/C-Spine Posture Forward Head T-Spine Posture Neutral L-Spine Posture Neutral Shoulder Posture (R) Rounded Comments Posture Comments Slight forward head with WFL trunk posture. Palpation Assessment Location One Palpation Location right shoulder: anterior/post/ lateral Palpation Findings Soft Tissue Tightness Tenderness Palpation Details grade 3/4 tender over SS/IS tendon, subacromial joint, and right scapular muscle PT-OP-K Range of Motion Start: 01/23/19 17:02 Freq: Status: Active Protocol: Document 01/23/19 17:03 EA (Rec: 01/23/19 17:40 EA [id number]) Shoulder Goniometric Range of Motion Shoulder Measured in Degrees Right Active Testing Position sitting and supine Flexion 100 Extension 45 Abduction 90 External Rotation at 90 degrees 80 Abduction Internal Rotation 30 Shoulder ROM Limitations Shoulder ROM Limitations Soft Tissue Tightness Muscle Weakness Pain PT-OP-L Special Tests Start: 01/23/19 17:02 Freq: Status: Active Protocol: Document 01/23/19 17:03 EA (Rec: 01/23/19 17:40 EA [id number]) Special Tests Shoulder Special Tests Lift-Off Rotator Cuff Test Results + Belly Press Test Results + Drop Arm Rotator Cuff Test Results - Empty Can Test Results + PT-OP-M Strength Start: 01/23/19 17:02 Freq: Status: Active Protocol: Document 01/23/19 17:03 EA (Rec: 01/23/19 17:40 EA [id number]) Shoulder Strength Shoulder Manual Muscle Testing Right Flexion 3+ Fair+ Extension 4- Good- Abduction (C5) 3+ Fair+ Adduction 4- Good- External Rotation 3+ Fair+ Internal Rotation 3+ Fair+ Horizontal Abduction 4- Good- Horizontal Adduction 4- Good- Comments Weakness maybe due to pain and muscle guarding Left Reason Not Measured WFL PT-OP-Q Treatments Start: 01/23/19 17:02 Freq: Status: Active Protocol: Document 02/09/19 12:00 DCW (Rec: 02/09/19 12:54 DCW [id number]) Therapeutic Exercises Supine Exercises 2 Supine Exercise Name T-bar press Reps/Minutes x 15 reps x 2 1 Supine Exercise Name T-bars flexion Reps/Minutes x15 reps x 2 Manual Therapy Treatment Soft Tissue Mobilization STM Body Location pecs, proximal SS, RTC Mobilization Type Cross-Friction Sustained Pressure Trigger Point Release Intensity/Depth Moderate Body Position Sitting Other Other Manual Treatments PROM in supine, Shoulder flexion, abduction, IR/ER. PT-OP-R Modalities Start: 01/23/19 17:02 Freq: Status: Active Protocol: Document 02/01/19 16:33 EA (Rec: 02/01/19 16:43 EA [id number]) Electric Stimulation Electric Stimulation Interferential Current (IFC) Body Location right SS/ant deltoid/traps Duration (Minutes) 15 Intensity 12 Contraction Type Normal Combined With Heat/Cold Cold Pack PT-OP-T Assessment and Plan Start: 01/23/19 17:02 Freq: Status: Active Protocol: Document 02/09/19 12:00 DCW (Rec: 02/09/19 12:54 DCW [id number]) Physical Therapy Assessment Impairments Impairments Functional Activities Pain ROM Soft Tissue Mobility Strength Goals Four Impairment NO HEP in place Licensed Embalmer Supervisor Goal (LTG) Patient will perform HEP (Home exercise program) independently LTG Duration 3 wks Three Impairment Impaired shoulder strength Intermediate Goal (LTG) Patient will increase shoulder ABD/F/ER strength by 1/2 grade for arm functional use. LTG Duration 4 wks Two Impairment Impaired left shoulder ROM Intermediate Goal (LTG) Patient will increase left shoulder flexion/ABD/ER AROM to functional range to enhance shoulder functional mobility LTG Duration 4 wks One Impairment quick Dash functional UE score of 70 Licensed Embalmer Supervisor Goal (LTG) Patient will have Quick [place] functional score of 35 LTG Duration 4 wks Assessment Summary Assessment Pt's anterior symptoms, severe pain with PROM, clicking/ popping/getting stuck sensations, and constant pain even at rest all may be symptoms of a labral tear. Although his current MRI does state that there is no notable labral involvement, pt may benefit from a second MRI with contrast to better assess integrity of glenoid labrum Physical Therapy Plan Frequency and Duration Frequency of Treatment 2x/Week Duration of Treatment 8 wks Plan of Care Start Date 01/23/19 Plan of Care End Date 03/20/19 Therapeutic Interventions Therapeutic Interventions Home Exercise Program Joint Mobilizations Manual Therapy Patient/Caregiver Education Self-Care/Home Management Soft Tissue Mobilization Taping Therapeutic Exercises Modalities Cold Pack/Ice Massage Electric Stimulation Hot Packs Ultrasound Other Referrals/Consults Referrals/Consults Recommended Contact Dr Schumacher to discuss possibility of MRI /c contrast. Next Visit Focus/Plan Next Note Type Treatment Note Next Visit Plan ROM, Strengthening, pain- control
--- NOTE | 2019-02-15 17:18 | PT.OTN ---
Current Diagnoses Strain of unspecified muscle, fascia and tendon at shoulder and upper arm level, right arm, initial encounter (02/15/19) Physical Therapy Treatment Note PT-OP-A Visit Information Start: 01/23/19 17:02 Freq: Status: Active Protocol: Document 02/15/19 16:31 EA (Rec: 02/15/19 16:40 EA [id number]) Out-Patient Physical Therapy Visit Information Visit Information Visit Type Treatment Note Visit Start Time 16:00 Visit Stop Time 16:50 Total Visit Minutes 53 Visit Number 5 PT-OP-B Current Condition Start: 01/23/19 17:02 Freq: Status: Active Protocol: Document 01/23/19 17:03 EA (Rec: 01/23/19 17:40 EA [id number]) Current Condition History of Current Condition Onset Date 12/14/2018 Current Complaints Left shoulder elevation difficulty due to pain and weakness History of Current Condition Patient reports present condition started 12/14/18 while lifting box of powder with 50 lbs weight to transfer to mixer; he states that popped sound felt accompanied with pain and numbness to right shoulder and arm. Patient reports incident report filed and work for three more days. Pt mentioned pain and weakness did not resolved and prompted him to see a doctor which given pain meds and ordered X-ray and MRI . Prior Treatments and Tests MRI: reveals partial tear to right SS Future Testing and Treatments Planned None identified Treatment Goals Patient/Caregiver Goals Patient wants to get back to previous level of function Prior Functional Status Baseline Function- ADL's Independent Baseline Function- Mobility Independent Baseline Function- Gait indep Baseline Function- Work/School Works active with lots of lifting, pulling and pushing. Baseline Function- Recreation/Hobbies Home personal fitness workout Current Functional Impairments (Reported) Functional Limitations- ADL's Difficulty in all activites that requires shoulder overhead movements, lifting, pulling and pushing. Functional Limitations- Mobility/Gait Indep Functional Limitations- Work/School Out of work 3 days after the injury until to this date. Functional Limitations- Recreation/ Unable to perform personal Hobbies fitness program PT-OP-C Subjective Start: 01/23/19 17:02 Freq: Status: Active Protocol: Document 02/15/19 16:31 EA (Rec: 02/15/19 16:40 EA [id number]) OP-PT Subjective Patient Comments Patient Comments Pt reports went to his surgeon due to unusual increased of pain at night though ROM is almost full. PT-OP-E Functional Tests Start: 01/23/19 17:02 Freq: Status: Active Protocol: Document 01/23/19 17:03 EA (Rec: 01/23/19 17:40 EA [id number]) Functional Tests Apley's Scratch Test Action 1: The subject is instructed to touch the opposite shoulder with his/her hand. This motion checks Glenohumeral adduction, internal rotation , horizontal adduction and scapular protraction Action 2: The subject is instructed to place his/her arm overhead and reach behind the neck to touch his/her upper back. This motion checks Glenohumeral abduction, external rotation and scapular upward rotation and elevation. Action 3: The subject puts his/her hand on the lower back and reaches upward as far as possible. This motion checks glenohumeral adduction, internal rotation and scapular retraction with downward rotation Action 1- Left able Action 1- Right able Action 2- Left T2 Action 2- Right C7 Action 3- Left T4 Action 3- Right L1 PT-OP-F Manual Assessment Start: 01/23/19 17:02 Freq: Status: Active Protocol: Document 01/23/19 17:03 EA (Rec: 01/23/19 17:40 EA [id number]) Manual Assessments Soft Tissue Assessment Soft Tissue Mobility Assessment Tight right shoulder adductors , anterior capsules. Joint Mobility Assessment Joint Mobility Assessment Hypo (Muscle guarding) PT-OP-J Posture/Palpation/Skin Start: 01/23/19 17:02 Freq: Status: Active Protocol: Document 01/23/19 17:03 EA (Rec: 01/23/19 17:40 EA [id number]) Posture Evaluation Position Standing Evaluation View post/lat Head/C-Spine Posture Forward Head T-Spine Posture Neutral L-Spine Posture Neutral Shoulder Posture (R) Rounded Comments Posture Comments Slight forward head with WFL trunk posture. Palpation Assessment Location One Palpation Location right shoulder: anterior/post/ lateral Palpation Findings Soft Tissue Tightness Tenderness Palpation Details grade 3/4 tender over SS/IS tendon, subacromial joint, and right scapular muscle PT-OP-K Range of Motion Start: 01/23/19 17:02 Freq: Status: Active Protocol: Document 01/23/19 17:03 EA (Rec: 01/23/19 17:40 EA [id number]) Shoulder Goniometric Range of Motion Shoulder Measured in Degrees Right Active Testing Position sitting and supine Flexion 100 Extension 45 Abduction 90 External Rotation at 90 degrees 80 Abduction Internal Rotation 30 Shoulder ROM Limitations Shoulder ROM Limitations Soft Tissue Tightness Muscle Weakness Pain PT-OP-L Special Tests Start: 01/23/19 17:02 Freq: Status: Active Protocol: Document 01/23/19 17:03 EA (Rec: 01/23/19 17:40 EA [id number]) Special Tests Shoulder Special Tests Lift-Off Rotator Cuff Test Results + Belly Press Test Results + Drop Arm Rotator Cuff Test Results - Empty Can Test Results + PT-OP-M Strength Start: 01/23/19 17:02 Freq: Status: Active Protocol: Document 01/23/19 17:03 EA (Rec: 01/23/19 17:40 EA [id number]) Shoulder Strength Shoulder Manual Muscle Testing Right Flexion 3+ Fair+ Extension 4- Good- Abduction (C5) 3+ Fair+ Adduction 4- Good- External Rotation 3+ Fair+ Internal Rotation 3+ Fair+ Horizontal Abduction 4- Good- Horizontal Adduction 4- Good- Comments Weakness maybe due to pain and muscle guarding Left Reason Not Measured WFL PT-OP-Q Treatments Start: 01/23/19 17:02 Freq: Status: Active Protocol: Document 02/15/19 16:31 EA (Rec: 02/15/19 16:40 EA [id number]) Cardio Equipment Upper Body Ergometer (UBE) Duration (Minutes) 6 RPM 12 Height 4 Therapeutic Exercises Supine Exercises 4 Supine Exercise Name Horiz ABD Reps/Minutes x 15 reps x2 3 Supine Exercise Name t-bar ER Reps/Minutes x 15 reps x 2 2 Supine Exercise Name T-bar press Reps/Minutes x 15 reps x 2 1 Supine Exercise Name T-bars flexion Reps/Minutes x15 reps x 2 Prone Exercises 2 Prone Exercise Name T-Ball Y and T Reps/Minutes x 15 reps 1 Prone Exercise Name t-bar ext Reps/Minutes x 15 reps Sidelying Exercises 1 Sidelying Exercise Name ABD, D1 directions, horiz ABD Reps/Minutes x 15 reps each Standing Exercises 4 Standing Exercise Name Shoulder ext and row Resistance Lv 1 Reps/Minutes x 15 reps 3 Standing Exercise Name ER/IR Resistance Lv 1 Reps/Minutes x 10 reps Comments HEP 2 Standing Exercise Name T-bar front raises Reps/Minutes x 15 reps Comments HEP 1 Standing Exercise Name wall slides: Flexion/ABD Reps/Minutes x 20 reps x 2 Comments HEP PT-OP-R Modalities Start: 01/23/19 17:02 Freq: Status: Active Protocol: Document 02/15/19 16:31 EA (Rec: 02/15/19 16:40 EA [id number]) Electric Stimulation Electric Stimulation Interferential Current (IFC) Body Location right SS/ant deltoid/traps Duration (Minutes) 15 Intensity 12 Contraction Type Normal Combined With Heat/Cold Cold Pack PT-OP-T Assessment and Plan Start: 01/23/19 17:02 Freq: Status: Active Protocol: Document 02/15/19 16:31 EA (Rec: 02/15/19 16:40 EA [id number]) Physical Therapy Assessment Assessment Summary Assessment Pt demonstrates improved standing shoulder AROM and ER/ IR band exercises with discomfort only noted in supine horiz ABD. Patient ROM is much improved at this time . Physical Therapy Plan Next Visit Focus/Plan Next Note Type Treatment Note Next Visit Plan ROM, Strengthening, pain- control
--- NOTE | 2019-02-21 16:46 | PT.OTN ---
Current Diagnoses Strain of unspecified muscle, fascia and tendon at shoulder and upper arm level, right arm, initial encounter (02/21/19) Physical Therapy Treatment Note PT-OP-A Visit Information Start: 01/23/19 17:02 Freq: Status: Active Protocol: Document 02/21/19 16:42 EA (Rec: 02/21/19 16:46 EA [id number]) Out-Patient Physical Therapy Visit Information Visit Information Visit Type Treatment Note Visit Start Time 15:15 Visit Stop Time 16:00 Visit Number 6 PT-OP-B Current Condition Start: 01/23/19 17:02 Freq: Status: Active Protocol: Document 01/23/19 17:03 EA (Rec: 01/23/19 17:40 EA [id number]) Current Condition History of Current Condition Onset Date 12/14/2018 Current Complaints Left shoulder elevation difficulty due to pain and weakness History of Current Condition Patient reports present condition started 12/14/18 while lifting box of powder with 50 lbs weight to transfer to mixer; he states that popped sound felt accompanied with pain and numbness to right shoulder and arm. Patient reports incident report filed and work for three more days. Pt mentioned pain and weakness did not resolved and prompted him to see a doctor which given pain meds and ordered X-ray and MRI . Prior Treatments and Tests MRI: reveals partial tear to right SS Future Testing and Treatments Planned None identified Treatment Goals Patient/Caregiver Goals Patient wants to get back to previous level of function Prior Functional Status Baseline Function- ADL's Independent Baseline Function- Mobility Independent Baseline Function- Gait indep Baseline Function- Work/School Works active with lots of lifting, pulling and pushing. Baseline Function- Recreation/Hobbies Home personal fitness workout Current Functional Impairments (Reported) Functional Limitations- ADL's Difficulty in all activites that requires shoulder overhead movements, lifting, pulling and pushing. Functional Limitations- Mobility/Gait Indep Functional Limitations- Work/School Out of work 3 days after the injury until to this date. Functional Limitations- Recreation/ Unable to perform personal Hobbies fitness program PT-OP-C Subjective Start: 01/23/19 17:02 Freq: Status: Active Protocol: Document 02/21/19 16:42 EA (Rec: 02/21/19 16:46 EA [id number]) OP-PT Subjective Patient Comments Patient Comments Pt reports unable to perform other activites due to right shoulder pain. PT-OP-E Functional Tests Start: 01/23/19 17:02 Freq: Status: Active Protocol: Document 01/23/19 17:03 EA (Rec: 01/23/19 17:40 EA [id number]) Functional Tests Apley's Scratch Test Action 1: The subject is instructed to touch the opposite shoulder with his/her hand. This motion checks Glenohumeral adduction, internal rotation , horizontal adduction and scapular protraction Action 2: The subject is instructed to place his/her arm overhead and reach behind the neck to touch his/her upper back. This motion checks Glenohumeral abduction, external rotation and scapular upward rotation and elevation. Action 3: The subject puts his/her hand on the lower back and reaches upward as far as possible. This motion checks glenohumeral adduction, internal rotation and scapular retraction with downward rotation Action 1- Left able Action 1- Right able Action 2- Left T2 Action 2- Right C7 Action 3- Left T4 Action 3- Right L1 PT-OP-F Manual Assessment Start: 01/23/19 17:02 Freq: Status: Active Protocol: Document 01/23/19 17:03 EA (Rec: 01/23/19 17:40 EA [id number]) Manual Assessments Soft Tissue Assessment Soft Tissue Mobility Assessment Tight right shoulder adductors , anterior capsules. Joint Mobility Assessment Joint Mobility Assessment Hypo (Muscle guarding) PT-OP-J Posture/Palpation/Skin Start: 01/23/19 17:02 Freq: Status: Active Protocol: Document 01/23/19 17:03 EA (Rec: 01/23/19 17:40 EA [id number]) Posture Evaluation Position Standing Evaluation View post/lat Head/C-Spine Posture Forward Head T-Spine Posture Neutral L-Spine Posture Neutral Shoulder Posture (R) Rounded Comments Posture Comments Slight forward head with WFL trunk posture. Palpation Assessment Location One Palpation Location right shoulder: anterior/post/ lateral Palpation Findings Soft Tissue Tightness Tenderness Palpation Details grade 3/4 tender over SS/IS tendon, subacromial joint, and right scapular muscle PT-OP-K Range of Motion Start: 01/23/19 17:02 Freq: Status: Active Protocol: Document 01/23/19 17:03 EA (Rec: 01/23/19 17:40 EA [id number]) Shoulder Goniometric Range of Motion Shoulder Measured in Degrees Right Active Testing Position sitting and supine Flexion 100 Extension 45 Abduction 90 External Rotation at 90 degrees 80 Abduction Internal Rotation 30 Shoulder ROM Limitations Shoulder ROM Limitations Soft Tissue Tightness Muscle Weakness Pain PT-OP-L Special Tests Start: 01/23/19 17:02 Freq: Status: Active Protocol: Document 01/23/19 17:03 EA (Rec: 01/23/19 17:40 EA [id number]) Special Tests Shoulder Special Tests Lift-Off Rotator Cuff Test Results + Belly Press Test Results + Drop Arm Rotator Cuff Test Results - Empty Can Test Results + PT-OP-M Strength Start: 01/23/19 17:02 Freq: Status: Active Protocol: Document 01/23/19 17:03 EA (Rec: 01/23/19 17:40 EA [id number]) Shoulder Strength Shoulder Manual Muscle Testing Right Flexion 3+ Fair+ Extension 4- Good- Abduction (C5) 3+ Fair+ Adduction 4- Good- External Rotation 3+ Fair+ Internal Rotation 3+ Fair+ Horizontal Abduction 4- Good- Horizontal Adduction 4- Good- Comments Weakness maybe due to pain and muscle guarding Left Reason Not Measured WFL PT-OP-Q Treatments Start: 01/23/19 17:02 Freq: Status: Active Protocol: Document 02/21/19 16:42 EA (Rec: 02/21/19 16:46 EA [id number]) Cardio Equipment Upper Body Ergometer (UBE) Duration (Minutes) 6 RPM 12 Height 5 Therapeutic Exercises Supine Exercises 4 Supine Exercise Name Horiz ABD Reps/Minutes x 15 reps x2 3 Supine Exercise Name t-bar ER Reps/Minutes x 15 reps x 2 2 Supine Exercise Name T-bar press Resistance 5lbs Reps/Minutes x 15 reps x 2 1 Supine Exercise Name T-bars flexion Resistance 3lbs Reps/Minutes x15 reps x 2 Comments 0-90deg Prone Exercises 2 Prone Exercise Name T-Ball Y and T Reps/Minutes x 15 reps 1 Prone Exercise Name t-bar ext Reps/Minutes x 15 reps Sidelying Exercises 1 Sidelying Exercise Name ABD, D1 directions, horiz ABD Reps/Minutes x 15 reps each Standing Exercises 4 Standing Exercise Name Shoulder ext and row Resistance Lv 1 Reps/Minutes x 15 reps 3 Standing Exercise Name ER/IR Resistance Lv 1 Reps/Minutes x 10 reps 2 Standing Exercise Name T-bar front raises Resistance 1lb Reps/Minutes x 15 reps 1 Standing Exercise Name wall slides: Flexion/ABD Reps/Minutes x 20 reps x 2 PT-OP-R Modalities Start: 01/23/19 17:02 Freq: Status: Active Protocol: Document 02/21/19 16:42 EA (Rec: 02/21/19 16:46 EA [id number]) Electric Stimulation Electric Stimulation Interferential Current (IFC) Body Location right SS/ant deltoid/traps Duration (Minutes) 15 Intensity 12 Contraction Type Normal Combined With Heat/Cold Cold Pack PT-OP-T Assessment and Plan Start: 01/23/19 17:02 Freq: Status: Active Protocol: Document 02/21/19 16:42 EA (Rec: 02/21/19 16:46 EA [id number]) Physical Therapy Assessment Assessment Summary Assessment Improved ROM and strength noted at this time. Patient is progressing slowly. Physical Therapy Plan Next Visit Focus/Plan Next Note Type Treatment Note Next Visit Plan ROM, Strengthening, pain- control
--- NOTE | 2019-02-28 16:14 | PT.OTN ---
Current Diagnoses Strain of unspecified muscle, fascia and tendon at shoulder and upper arm level, right arm, initial encounter (02/28/19) Physical Therapy Treatment Note PT-OP-A Visit Information Start: 01/23/19 17:02 Freq: Status: Active Protocol: Document 02/28/19 15:53 EA (Rec: 02/28/19 15:59 EA [id number]) Out-Patient Physical Therapy Visit Information Visit Information Visit Type Treatment Note Visit Start Time 15:15 Visit Stop Time 16:10 Visit Number 7 PT-OP-B Current Condition Start: 01/23/19 17:02 Freq: Status: Active Protocol: Document 01/23/19 17:03 EA (Rec: 01/23/19 17:40 EA [id number]) Current Condition History of Current Condition Onset Date 12/14/2018 Current Complaints Left shoulder elevation difficulty due to pain and weakness History of Current Condition Patient reports present condition started 12/14/18 while lifting box of powder with 50 lbs weight to transfer to mixer; he states that popped sound felt accompanied with pain and numbness to right shoulder and arm. Patient reports incident report filed and work for three more days. Pt mentioned pain and weakness did not resolved and prompted him to see a doctor which given pain meds and ordered X-ray and MRI . Prior Treatments and Tests MRI: reveals partial tear to right SS Future Testing and Treatments Planned None identified Treatment Goals Patient/Caregiver Goals Patient wants to get back to previous level of function Prior Functional Status Baseline Function- ADL's Independent Baseline Function- Mobility Independent Baseline Function- Gait indep Baseline Function- Work/School Works active with lots of lifting, pulling and pushing. Baseline Function- Recreation/Hobbies Home personal fitness workout Current Functional Impairments (Reported) Functional Limitations- ADL's Difficulty in all activites that requires shoulder overhead movements, lifting, pulling and pushing. Functional Limitations- Mobility/Gait Indep Functional Limitations- Work/School Out of work 3 days after the injury until to this date. Functional Limitations- Recreation/ Unable to perform personal Hobbies fitness program PT-OP-C Subjective Start: 01/23/19 17:02 Freq: Status: Active Protocol: Document 02/28/19 15:53 EA (Rec: 02/28/19 15:59 EA [id number]) OP-PT Subjective Patient Comments Patient Comments Pt reports compliant with HEP; states pain still the main problem with overhead movement and rated 6/10. He mentioned that he will be seeing his doctor next week. PT-OP-E Functional Tests Start: 01/23/19 17:02 Freq: Status: Active Protocol: Document 01/23/19 17:03 EA (Rec: 01/23/19 17:40 EA [id number]) Functional Tests Apley's Scratch Test Action 1: The subject is instructed to touch the opposite shoulder with his/her hand. This motion checks Glenohumeral adduction, internal rotation , horizontal adduction and scapular protraction Action 2: The subject is instructed to place his/her arm overhead and reach behind the neck to touch his/her upper back. This motion checks Glenohumeral abduction, external rotation and scapular upward rotation and elevation. Action 3: The subject puts his/her hand on the lower back and reaches upward as far as possible. This motion checks glenohumeral adduction, internal rotation and scapular retraction with downward rotation Action 1- Left able Action 1- Right able Action 2- Left T2 Action 2- Right C7 Action 3- Left T4 Action 3- Right L1 PT-OP-F Manual Assessment Start: 01/23/19 17:02 Freq: Status: Active Protocol: Document 01/23/19 17:03 EA (Rec: 01/23/19 17:40 EA [id number]) Manual Assessments Soft Tissue Assessment Soft Tissue Mobility Assessment Tight right shoulder adductors , anterior capsules. Joint Mobility Assessment Joint Mobility Assessment Hypo (Muscle guarding) PT-OP-J Posture/Palpation/Skin Start: 01/23/19 17:02 Freq: Status: Active Protocol: Document 01/23/19 17:03 EA (Rec: 01/23/19 17:40 EA [id number]) Posture Evaluation Position Standing Evaluation View post/lat Head/C-Spine Posture Forward Head T-Spine Posture Neutral L-Spine Posture Neutral Shoulder Posture (R) Rounded Comments Posture Comments Slight forward head with WFL trunk posture. Palpation Assessment Location One Palpation Location right shoulder: anterior/post/ lateral Palpation Findings Soft Tissue Tightness Tenderness Palpation Details grade 3/4 tender over SS/IS tendon, subacromial joint, and right scapular muscle PT-OP-K Range of Motion Start: 01/23/19 17:02 Freq: Status: Active Protocol: Document 01/23/19 17:03 EA (Rec: 01/23/19 17:40 EA [id number]) Shoulder Goniometric Range of Motion Shoulder Measured in Degrees Right Active Testing Position sitting and supine Flexion 100 Extension 45 Abduction 90 External Rotation at 90 degrees 80 Abduction Internal Rotation 30 Shoulder ROM Limitations Shoulder ROM Limitations Soft Tissue Tightness Muscle Weakness Pain PT-OP-L Special Tests Start: 01/23/19 17:02 Freq: Status: Active Protocol: Document 01/23/19 17:03 EA (Rec: 01/23/19 17:40 EA [id number]) Special Tests Shoulder Special Tests Lift-Off Rotator Cuff Test Results + Belly Press Test Results + Drop Arm Rotator Cuff Test Results - Empty Can Test Results + PT-OP-M Strength Start: 01/23/19 17:02 Freq: Status: Active Protocol: Document 01/23/19 17:03 EA (Rec: 01/23/19 17:40 EA [id number]) Shoulder Strength Shoulder Manual Muscle Testing Right Flexion 3+ Fair+ Extension 4- Good- Abduction (C5) 3+ Fair+ Adduction 4- Good- External Rotation 3+ Fair+ Internal Rotation 3+ Fair+ Horizontal Abduction 4- Good- Horizontal Adduction 4- Good- Comments Weakness maybe due to pain and muscle guarding Left Reason Not Measured WFL PT-OP-Q Treatments Start: 01/23/19 17:02 Freq: Status: Active Protocol: Document 02/28/19 15:53 EA (Rec: 02/28/19 15:59 EA [id number]) Cardio Equipment Upper Body Ergometer (UBE) Duration (Minutes) 6 RPM 12 Height 5 Gym Equipment Cable Column (Body Solid) Rows Resistance 30# Reps/Time x 15 reps Lat Pull Down Details pain free range Resistance 30# Reps/Time x 15 res Therapeutic Exercises Supine Exercises 4 Supine Exercise Name Horiz ABD Resistance 1# AW Reps/Minutes x 15 reps x2 3 Supine Exercise Name t-bar ER Resistance 1# Reps/Minutes x 15 reps x 2 2 Supine Exercise Name T-bar press Resistance 5lbs Reps/Minutes x 15 reps x 2 1 Supine Exercise Name T-bars flexion Resistance 3lbs Reps/Minutes x15 reps x 2 Comments 0-90deg Prone Exercises 2 Prone Exercise Name T-Ball Y and T Reps/Minutes x 15 reps 1 Prone Exercise Name t-bar ext Reps/Minutes x 15 reps Sidelying Exercises 1 Sidelying Exercise Name ABD, D1 directions, horiz ABD Resistance 1# wrist wgts Reps/Minutes x 15 reps each Standing Exercises 4 Standing Exercise Name Shoulder ext and row Resistance Lv 1-2 Reps/Minutes x 15 reps x 2 3 Standing Exercise Name ER/IR Resistance Lv 1-2 Reps/Minutes x 10 reps x 2 2 Standing Exercise Name T-bar front raises Resistance 1lb Reps/Minutes x 15 reps 1 Standing Exercise Name wall slides: Flexion/ABD Reps/Minutes x 20 reps x 2 PT-OP-R Modalities Start: 01/23/19 17:02 Freq: Status: Active Protocol: Document 02/28/19 15:53 EA (Rec: 02/28/19 15:59 EA [id number]) Electric Stimulation Electric Stimulation Interferential Current (IFC) Body Location right SS/ant deltoid/traps Duration (Minutes) 15 Intensity 12 Contraction Type Normal Combined With Heat/Cold Cold Pack PT-OP-T Assessment and Plan Start: 01/23/19 17:02 Freq: Status: Active Protocol: Document 02/28/19 15:53 EA (Rec: 02/28/19 15:59 EA [id number]) Physical Therapy Assessment Assessment Summary Assessment Noted discomfort only with D1 F/E at end range but tolerated . Physical Therapy Plan Next Visit Focus/Plan Next Note Type Treatment Note Next Visit Plan ROM, Strengthening, pain- control
--- NOTE | 2019-03-09 15:15 | PT.OTN ---
Current Diagnoses Strain of unspecified muscle, fascia and tendon at shoulder and upper arm level, right arm, initial encounter (03/09/19) Physical Therapy Treatment Note PT-OP-A Visit Information Start: 01/23/19 17:02 Freq: Status: Active Protocol: Document 03/09/19 14:30 DCW (Rec: 03/09/19 15:14 DCW [id number]) Out-Patient Physical Therapy Visit Information Visit Information Visit Type Treatment Note Visit Start Time 14:30 Visit Stop Time 15:15 Total Visit Minutes 45 Visit Number 8 PT-OP-B Current Condition Start: 01/23/19 17:02 Freq: Status: Active Protocol: Document 01/23/19 17:03 EA (Rec: 01/23/19 17:40 EA [id number]) Current Condition History of Current Condition Onset Date 12/14/2018 Current Complaints Left shoulder elevation difficulty due to pain and weakness History of Current Condition Patient reports present condition started 12/14/18 while lifting box of powder with 50 lbs weight to transfer to mixer; he states that popped sound felt accompanied with pain and numbness to right shoulder and arm. Patient reports incident report filed and work for three more days. Pt mentioned pain and weakness did not resolved and prompted him to see a doctor which given pain meds and ordered X-ray and MRI . Prior Treatments and Tests MRI: reveals partial tear to right SS Future Testing and Treatments Planned None identified Treatment Goals Patient/Caregiver Goals Patient wants to get back to previous level of function Prior Functional Status Baseline Function- ADL's Independent Baseline Function- Mobility Independent Baseline Function- Gait indep Baseline Function- Work/School Works active with lots of lifting, pulling and pushing. Baseline Function- Recreation/Hobbies Home personal fitness workout Current Functional Impairments (Reported) Functional Limitations- ADL's Difficulty in all activites that requires shoulder overhead movements, lifting, pulling and pushing. Functional Limitations- Mobility/Gait Indep Functional Limitations- Work/School Out of work 3 days after the injury until to this date. Functional Limitations- Recreation/ Unable to perform personal Hobbies fitness program PT-OP-C Subjective Start: 01/23/19 17:02 Freq: Status: Active Protocol: Document 03/09/19 14:30 DCW (Rec: 03/09/19 15:14 DCW [id number]) OP-PT Subjective Patient Comments Patient Comments Pt reports that his pain and mobility has been worsening since his steroid injection on Tuesday, and he was so bad that he had to cancel his most recent PT appointment on Tuesday. Reports his pain has been a steady 08/07. PT-OP-E Functional Tests Start: 01/23/19 17:02 Freq: Status: Active Protocol: Document 01/23/19 17:03 EA (Rec: 01/23/19 17:40 EA [id number]) Functional Tests Apley's Scratch Test Action 1: The subject is instructed to touch the opposite shoulder with his/her hand. This motion checks Glenohumeral adduction, internal rotation , horizontal adduction and scapular protraction Action 2: The subject is instructed to place his/her arm overhead and reach behind the neck to touch his/her upper back. This motion checks Glenohumeral abduction, external rotation and scapular upward rotation and elevation. Action 3: The subject puts his/her hand on the lower back and reaches upward as far as possible. This motion checks glenohumeral adduction, internal rotation and scapular retraction with downward rotation Action 1- Left able Action 1- Right able Action 2- Left T2 Action 2- Right C7 Action 3- Left T4 Action 3- Right L1 PT-OP-F Manual Assessment Start: 01/23/19 17:02 Freq: Status: Active Protocol: Document 01/23/19 17:03 EA (Rec: 01/23/19 17:40 EA [id number]) Manual Assessments Soft Tissue Assessment Soft Tissue Mobility Assessment Tight right shoulder adductors , anterior capsules. Joint Mobility Assessment Joint Mobility Assessment Hypo (Muscle guarding) PT-OP-J Posture/Palpation/Skin Start: 01/23/19 17:02 Freq: Status: Active Protocol: Document 01/23/19 17:03 EA (Rec: 01/23/19 17:40 EA [id number]) Posture Evaluation Position Standing Evaluation View post/lat Head/C-Spine Posture Forward Head T-Spine Posture Neutral L-Spine Posture Neutral Shoulder Posture (R) Rounded Comments Posture Comments Slight forward head with WFL trunk posture. Palpation Assessment Location One Palpation Location right shoulder: anterior/post/ lateral Palpation Findings Soft Tissue Tightness Tenderness Palpation Details grade 3/4 tender over SS/IS tendon, subacromial joint, and right scapular muscle PT-OP-K Range of Motion Start: 01/23/19 17:02 Freq: Status: Active Protocol: Document 01/23/19 17:03 EA (Rec: 01/23/19 17:40 EA [id number]) Shoulder Goniometric Range of Motion Shoulder Measured in Degrees Right Active Testing Position sitting and supine Flexion 100 Extension 45 Abduction 90 External Rotation at 90 degrees 80 Abduction Internal Rotation 30 Shoulder ROM Limitations Shoulder ROM Limitations Soft Tissue Tightness Muscle Weakness Pain PT-OP-L Special Tests Start: 01/23/19 17:02 Freq: Status: Active Protocol: Document 01/23/19 17:03 EA (Rec: 01/23/19 17:40 EA [id number]) Special Tests Shoulder Special Tests Lift-Off Rotator Cuff Test Results + Belly Press Test Results + Drop Arm Rotator Cuff Test Results - Empty Can Test Results + PT-OP-M Strength Start: 01/23/19 17:02 Freq: Status: Active Protocol: Document 01/23/19 17:03 EA (Rec: 01/23/19 17:40 EA [id number]) Shoulder Strength Shoulder Manual Muscle Testing Right Flexion 3+ Fair+ Extension 4- Good- Abduction (C5) 3+ Fair+ Adduction 4- Good- External Rotation 3+ Fair+ Internal Rotation 3+ Fair+ Horizontal Abduction 4- Good- Horizontal Adduction 4- Good- Comments Weakness maybe due to pain and muscle guarding Left Reason Not Measured WFL PT-OP-Q Treatments Start: 01/23/19 17:02 Freq: Status: Active Protocol: Document 03/09/19 14:30 DCW (Rec: 03/09/19 15:14 DCW [id number]) Cardio Equipment Upper Body Ergometer (UBE) Duration (Minutes) 6 RPM 12 Height 4 Therapeutic Exercises Supine Exercises 4 Supine Exercise Name Horiz ABD Resistance 1# Reps/Minutes x 15 reps x2 3 Supine Exercise Name t-bar ER Resistance 1# Reps/Minutes x 15 reps x 2 2 Supine Exercise Name T-bar press Resistance 5lbs Reps/Minutes x 15 reps x 2 1 Supine Exercise Name T-bars flexion Resistance 2# Reps/Minutes x15 reps x 2 Comments 0-90deg Sidelying Exercises 1 Sidelying Exercise Name Abd, Horizontal Abd Resistance 1# wrist wgts Reps/Minutes x 15 reps each Standing Exercises 4 Standing Exercise Name Shoulder ext and row Resistance Lv 2 Reps/Minutes x 15 reps x 2 3 Standing Exercise Name ER/IR Resistance Lv 2 Reps/Minutes x 10 reps x 2 2 Standing Exercise Name T-bar front raises Resistance 1lb Reps/Minutes x 15 reps 1 Standing Exercise Name wall slides: Flexion/ABD Reps/Minutes x 20 reps x 2 PT-OP-R Modalities Start: 01/23/19 17:02 Freq: Status: Active Protocol: Document 02/28/19 15:53 EA (Rec: 02/28/19 15:59 EA [id number]) Electric Stimulation Electric Stimulation Interferential Current (IFC) Body Location right SS/ant deltoid/traps Duration (Minutes) 15 Intensity 12 Contraction Type Normal Combined With Heat/Cold Cold Pack PT-OP-T Assessment and Plan Start: 01/23/19 17:02 Freq: Status: Active Protocol: Document 03/09/19 14:30 DCW (Rec: 03/09/19 15:14 DCW [id number]) Physical Therapy Assessment Impairments Impairments Functional Activities Pain ROM Soft Tissue Mobility Strength Goals Four Impairment NO HEP in place [facility] Goal (LTG) Patient will perform HEP (Home exercise program) independently LTG Duration 3 wks Three Impairment Impaired shoulder strength 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 LTG Duration 4 wks Two Impairment Impaired left shoulder ROM M[facility] Goal (LTG) Patient will increase left shoulder flexion/ABD/ER AROM to functional range to enhance shoulder functional mobility LTG Duration 4 wks One Impairment quick Dash functional UE score of 70 M[facility] Goal (LTG) Patient will have Quick Dask functional score of 35 LTG Duration 4 wks Assessment Summary Assessment Pt appear to be continually worsening, with severe anterior pain and popping and clicking in his joint. Pt is overall fairly unhappy that he is not progressing, and is planning to go to another ortho for a second opinion next week. Physical Therapy Plan Frequency and Duration Frequency of Treatment 2x/Week Duration of Treatment 8 wks Plan of Care Start Date 01/23/19 Plan of Care End Date 03/20/19 Therapeutic Interventions Therapeutic Interventions Home Exercise Program Joint Mobilizations Manual Therapy Patient/Caregiver Education Self-Care/Home Management Soft Tissue Mobilization Taping Therapeutic Exercises Modalities Cold Pack/Ice Massage Electric Stimulation Hot Packs Ultrasound Next Visit Focus/Plan Next Note Type Treatment Note Next Visit Plan ROM, Strengthening, pain- control
--- NOTE | 2019-03-22 16:09 | PT.OTN ---
Current Diagnoses Strain of unspecified muscle, fascia and tendon at shoulder and upper arm level, right arm, initial encounter (03/22/19) Physical Therapy Treatment Note PT-OP-A Visit Information Start: 01/23/19 17:02 Freq: Status: Active Protocol: Document 03/22/19 13:42 EA (Rec: 03/22/19 13:46 EA [id number]) Out-Patient Physical Therapy Visit Information Visit Information Visit Type Treatment Note Visit Note Re-eval performed today Visit Start Time 13:00 Visit Stop Time 13:48 Total Visit Minutes 48 Visit Number 9 PT-OP-B Current Condition Start: 01/23/19 17:02 Freq: Status: Active Protocol: Document 03/22/19 13:42 EA (Rec: 03/22/19 13:46 EA [id number]) Current Condition History of Current Condition Onset Date 12/14/2018 Current Complaints Right shoulder elevation difficulty due to pain and weakness History of Current Condition Patient reports present condition started 12/14/18 while lifting box of powder with 50 lbs weight to transfer to mixer; he states that popped sound felt accompanied with pain and numbness to right shoulder and arm. Patient reports incident report filed and work for three more days. Pt mentioned pain and weakness did not resolved and prompted him to see a doctor which given pain meds and ordered X-ray and MRI . Prior Treatments and Tests MRI: reveals partial tear to right SS Future Testing and Treatments Planned None identified Treatment Goals Patient/Caregiver Goals Patient wants to get back to previous level of function Prior Functional Status Baseline Function- ADL's Independent Baseline Function- Mobility Independent Baseline Function- Gait indep Baseline Function- Work/School Works active with lots of lifting, pulling and pushing. Baseline Function- Recreation/Hobbies Home personal fitness workout Current Functional Impairments (Reported) Functional Limitations- ADL's Difficulty in all activites that requires shoulder overhead movements, lifting, pulling and pushing. Functional Limitations- Mobility/Gait Indep Functional Limitations- Work/School Out of work 3 days after the injury until to this date. Functional Limitations- Recreation/ Unable to perform personal Hobbies fitness program PT-OP-C Subjective Start: 01/23/19 17:02 Freq: Status: Active Protocol: Document 03/22/19 13:42 EA (Rec: 03/22/19 13:46 EA [id number]) OP-PT Subjective Patient Comments Patient Comments Patient reports went to her doctor yesterday and recommends to continue PT in the next 4 weeks as recent steroid injection might not working well yet. Patient feels that steroids does not work to his pain level at this time. Patient Questionnaires Quick Dash- Upper Extremity Quick Dash UE Score 70 Quick Dash UE Impairment 60 to 79% Impaired (Score 60- 79) PT-OP-E Functional Tests Start: 01/23/19 17:02 Freq: Status: Active Protocol: Document 01/23/19 17:03 EA (Rec: 01/23/19 17:40 EA [id number]) Functional Tests Apley's Scratch Test Action 1: The subject is instructed to touch the opposite shoulder with his/her hand. This motion checks Glenohumeral adduction, internal rotation , horizontal adduction and scapular protraction Action 2: The subject is instructed to place his/her arm overhead and reach behind the neck to touch his/her upper back. This motion checks Glenohumeral abduction, external rotation and scapular upward rotation and elevation. Action 3: The subject puts his/her hand on the lower back and reaches upward as far as possible. This motion checks glenohumeral adduction, internal rotation and scapular retraction with downward rotation Action 1- Left able Action 1- Right able Action 2- Left T2 Action 2- Right C7 Action 3- Left T4 Action 3- Right L1 PT-OP-F Manual Assessment Start: 01/23/19 17:02 Freq: Status: Active Protocol: Document 01/23/19 17:03 EA (Rec: 01/23/19 17:40 EA [id number]) Manual Assessments Soft Tissue Assessment Soft Tissue Mobility Assessment Tight right shoulder adductors , anterior capsules. Joint Mobility Assessment Joint Mobility Assessment Hypo (Muscle guarding) PT-OP-J Posture/Palpation/Skin Start: 01/23/19 17:02 Freq: Status: Active Protocol: Document 01/23/19 17:03 EA (Rec: 01/23/19 17:40 EA [id number]) Posture Evaluation Position Standing Evaluation View post/lat Head/C-Spine Posture Forward Head T-Spine Posture Neutral L-Spine Posture Neutral Shoulder Posture (R) Rounded Comments Posture Comments Slight forward head with WFL trunk posture. Palpation Assessment Location One Palpation Location right shoulder: anterior/post/ lateral Palpation Findings Soft Tissue Tightness Tenderness Palpation Details grade 3/4 tender over SS/IS tendon, subacromial joint, and right scapular muscle PT-OP-K Range of Motion Start: 01/23/19 17:02 Freq: Status: Active Protocol: Document 03/22/19 16:08 EA (Rec: 03/26/19 14:09 EA [id number]) Shoulder Goniometric Range of Motion Shoulder Measured in Degrees Right Active Testing Position sitting and supine Flexion 160 Extension 60 Abduction 100 External Rotation at 90 degrees 90 Abduction Internal Rotation 45 PT-OP-L Special Tests Start: 01/23/19 17:02 Freq: Status: Active Protocol: Document 01/23/19 17:03 EA (Rec: 01/23/19 17:40 EA [id number]) Special Tests Shoulder Special Tests Lift-Off Rotator Cuff Test Results + Belly Press Test Results + Drop Arm Rotator Cuff Test Results - Empty Can Test Results + PT-OP-M Strength Start: 01/23/19 17:02 Freq: Status: Active Protocol: Document 01/23/19 17:03 EA (Rec: 01/23/19 17:40 EA [id number]) Shoulder Strength Shoulder Manual Muscle Testing Right Flexion 3+ Fair+ Extension 4- Good- Abduction (C5) 3+ Fair+ Adduction 4- Good- External Rotation 3+ Fair+ Internal Rotation 3+ Fair+ Horizontal Abduction 4- Good- Horizontal Adduction 4- Good- Comments Weakness maybe due to pain and muscle guarding Left Reason Not Measured WFL PT-OP-Q Treatments Start: 01/23/19 17:02 Freq: Status: Active Protocol: Document 03/22/19 13:42 EA (Rec: 03/22/19 13:46 EA [id number]) Cardio Equipment Upper Body Ergometer (UBE) Duration (Minutes) 6 RPM 12 Height 4 Gym Equipment Cable Column (Body Solid) Rows Resistance 30# Reps/Time x 15 reps Lat Pull Down Details pain free range Resistance 30# Reps/Time x 15 res Therapeutic Exercises Standing Exercises 4 Standing Exercise Name Shoulder ext and row Resistance Lv 2 Reps/Minutes x 15 reps x 2 3 Standing Exercise Name ER/IR Resistance Lv 2 Reps/Minutes x 10 reps x 2 2 Standing Exercise Name T-bar front raises Resistance 4lb Reps/Minutes x 15 reps 1 Standing Exercise Name wall slides: Flexion/ABD Resistance 2# Aw Reps/Minutes x 20 reps x 2 PT-OP-R Modalities Start: 01/23/19 17:02 Freq: Status: Active Protocol: Document 03/22/19 14:29 EA (Rec: 03/22/19 14:32 EA [id number]) Hot Pack/Cold Pack Treatment Cold Pack Location right shoulder Patient Position Hooklying PT-OP-T Assessment and Plan Start: 01/23/19 17:02 Freq: Status: Active Protocol: Document 03/22/19 14:28 EA (Rec: 03/22/19 14:29 EA [id number]) Physical Therapy Assessment Impairments Impairments Functional Activities Pain ROM Soft Tissue Mobility Strength Goals Four Impairment NO HEP in place [facility] Goal (LTG) Patient will perform HEP (Home exercise program) independently LTG Duration 3 wks (improving) Three Impairment Impaired shoulder strength Pet Care Associate Goal (LTG) Patient will increase shoulder ABD/F/ER strength by 1/2 grade for arm functional use. LTG Duration 4 wks (improving) Two Impairment Impaired left shoulder ROM Pet Care Associate Goal (LTG) Patient will increase left shoulder flexion/ABD/ER AROM to functional range to enhance shoulder functional mobility LTG Duration 4 wks ( good improvement) One Impairment quick Dash functional UE score of 70 [facility] Goal (LTG) Patient will have Quick Dask functional score of 35 LTG Duration 4 wks (No Improvement) Progress Towards Goals Progress Towards Goals Slow Progress due to Activity Tolerance Assessment Summary Assessment Patient exhibits improved exercises tolerance as to right forward shoulder flexion, abduction, and other exercises combined with shoulder rotations. No noted any signs of shoulder substitutions in all overhead motion which indicates good scapulohumeral control. Subjective complaint did not show any improvement at this time. Patient would continue to benefit with skilled PT focusing with functional exercises and education. Physical Therapy Plan Frequency and Duration Frequency of Treatment 2x/Week Duration of Treatment 4 wks Plan of Care Start Date 03/22/19 Plan of Care End Date 04/19/19 Therapeutic Interventions Therapeutic Interventions Home Exercise Program Joint Mobilizations Manual Therapy Patient/Caregiver Education Self-Care/Home Management Soft Tissue Mobilization Taping Therapeutic Exercises Modalities Cold Pack/Ice Massage Electric Stimulation Hot Packs Ultrasound Next Visit Focus/Plan Next Note Type Treatment Note Next Visit Plan Progress as tolerated
--- NOTE | 2019-03-22 16:10 | PT.OPPOC ---
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 [id number] Specialty: Medical Address: [address] [place] [address], [facility] Email: Plan Of Care PT-OP-T Assessment and Plan Start: 01/23/19 17:02 Freq: Status: Active Protocol: Document 03/22/19 14:28 EA (Rec: 03/22/19 14:29 EA [id number]) Physical Therapy Assessment Impairments Impairments Functional Activities Pain ROM Soft Tissue Mobility Strength Goals Four Impairment NO HEP in place 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 LTG Duration 4 wks (improving) Two Impairment Impaired left shoulder ROM Residential Goal (LTG) Patient will increase left shoulder flexion/ABD/ER AROM to functional range to enhance shoulder functional mobility LTG Duration 4 wks ( good improvement) One Impairment quick Dash functional UE score of 70 Dry Kiln Worker Goal (LTG) Patient will have Quick Dask functional score of 35 LTG Duration 4 wks (No Improvement) Progress Towards Goals Progress Towards Goals Slow Progress due to Activity Tolerance Assessment Summary Assessment Patient exhibits improved exercises tolerance as to right forward shoulder flexion, abduction, and other exercises combined with shoulder rotations. No noted any signs of shoulder substitutions in all overhead motion which indicates good scapulohumeral control. Subjective complaint did not show any improvement at this time. Patient would continue to benefit with skilled PT focusing with functional exercises and education. Physical Therapy Plan Frequency and Duration Frequency of Treatment 2x/Week Duration of Treatment 4 wks Plan of Care Start Date 03/22/19 Plan of Care End Date 04/19/19 Therapeutic Interventions Therapeutic Interventions Home Exercise Program Joint Mobilizations Manual Therapy Patient/Caregiver Education Self-Care/Home Management Soft Tissue Mobilization Taping Therapeutic Exercises Modalities Cold Pack/Ice Massage Electric Stimulation Hot Packs Ultrasound Next Visit Focus/Plan Next Note Type Treatment Note Next Visit Plan Progress as tolerated Plan of Care Dates Plan of Care Start Date 03/22/19 Plan of Care End Date 04/19/19 Please Sign and Return: I have reviewed this Plan of Care and certify that the skilled therapy services above are required to meet the patient?s needs. Physician Signature Date Printed Name and Credentials Clinical Instructor Signature Printed Name and Credentials
--- NOTE | 2019-03-26 16:55 | PT.OTN ---
Current Diagnoses Strain of unspecified muscle, fascia and tendon at shoulder and upper arm level, right arm, initial encounter (03/26/19) Physical Therapy Treatment Note PT-OP-A Visit Information Start: 01/23/19 17:02 Freq: Status: Active Protocol: Document 03/26/19 16:48 EA (Rec: 03/26/19 16:55 EA [id number]) Out-Patient Physical Therapy Visit Information Visit Information Visit Type Treatment Note Visit Start Time 16:00 Visit Stop Time 16:48 Total Visit Minutes 48 Visit Number 10 PT-OP-B Current Condition Start: 01/23/19 17:02 Freq: Status: Active Protocol: Document 03/22/19 13:42 EA (Rec: 03/22/19 13:46 EA [id number]) Current Condition History of Current Condition Onset Date 12/14/2018 Current Complaints Right shoulder elevation difficulty due to pain and weakness History of Current Condition Patient reports present condition started 12/14/18 while lifting box of powder with 50 lbs weight to transfer to mixer; he states that popped sound felt accompanied with pain and numbness to right shoulder and arm. Patient reports incident report filed and work for three more days. Pt mentioned pain and weakness did not resolved and prompted him to see a doctor which given pain meds and ordered X-ray and MRI . Prior Treatments and Tests MRI: reveals partial tear to right SS Future Testing and Treatments Planned None identified Treatment Goals Patient/Caregiver Goals Patient wants to get back to previous level of function Prior Functional Status Baseline Function- ADL's Independent Baseline Function- Mobility Independent Baseline Function- Gait indep Baseline Function- Work/School Works active with lots of lifting, pulling and pushing. Baseline Function- Recreation/Hobbies Home personal fitness workout Current Functional Impairments (Reported) Functional Limitations- ADL's Difficulty in all activites that requires shoulder overhead movements, lifting, pulling and pushing. Functional Limitations- Mobility/Gait Indep Functional Limitations- Work/School Out of work 3 days after the injury until to this date. Functional Limitations- Recreation/ Unable to perform personal Hobbies fitness program PT-OP-C Subjective Start: 01/23/19 17:02 Freq: Status: Active Protocol: Document 03/26/19 16:48 EA (Rec: 03/26/19 16:55 EA [id number]) OP-PT Subjective Patient Comments Patient Comments Pt reports pain limits his shoulder function; states that he feel his ROM is much improved since he started. PT-OP-E Functional Tests Start: 01/23/19 17:02 Freq: Status: Active Protocol: Document 01/23/19 17:03 EA (Rec: 01/23/19 17:40 EA [id number]) Functional Tests Apley's Scratch Test Action 1: The subject is instructed to touch the opposite shoulder with his/her hand. This motion checks Glenohumeral adduction, internal rotation , horizontal adduction and scapular protraction Action 2: The subject is instructed to place his/her arm overhead and reach behind the neck to touch his/her upper back. This motion checks Glenohumeral abduction, external rotation and scapular upward rotation and elevation. Action 3: The subject puts his/her hand on the lower back and reaches upward as far as possible. This motion checks glenohumeral adduction, internal rotation and scapular retraction with downward rotation Action 1- Left able Action 1- Right able Action 2- Left T2 Action 2- Right C7 Action 3- Left T4 Action 3- Right L1 PT-OP-F Manual Assessment Start: 01/23/19 17:02 Freq: Status: Active Protocol: Document 01/23/19 17:03 EA (Rec: 01/23/19 17:40 EA [id number]) Manual Assessments Soft Tissue Assessment Soft Tissue Mobility Assessment Tight right shoulder adductors , anterior capsules. Joint Mobility Assessment Joint Mobility Assessment Hypo (Muscle guarding) PT-OP-J Posture/Palpation/Skin Start: 01/23/19 17:02 Freq: Status: Active Protocol: Document 01/23/19 17:03 EA (Rec: 01/23/19 17:40 EA [id number]) Posture Evaluation Position Standing Evaluation View post/lat Head/C-Spine Posture Forward Head T-Spine Posture Neutral L-Spine Posture Neutral Shoulder Posture (R) Rounded Comments Posture Comments Slight forward head with WFL trunk posture. Palpation Assessment Location One Palpation Location right shoulder: anterior/post/ lateral Palpation Findings Soft Tissue Tightness Tenderness Palpation Details grade 3/4 tender over SS/IS tendon, subacromial joint, and right scapular muscle PT-OP-K Range of Motion Start: 01/23/19 17:02 Freq: Status: Active Protocol: Document 03/22/19 16:08 EA (Rec: 03/26/19 14:09 EA [id number]) Shoulder Goniometric Range of Motion Shoulder Measured in Degrees Right Active Testing Position sitting and supine Flexion 160 Extension 60 Abduction 100 External Rotation at 90 degrees 90 Abduction Internal Rotation 45 PT-OP-L Special Tests Start: 01/23/19 17:02 Freq: Status: Active Protocol: Document 01/23/19 17:03 EA (Rec: 01/23/19 17:40 EA [id number]) Special Tests Shoulder Special Tests Lift-Off Rotator Cuff Test Results + Belly Press Test Results + Drop Arm Rotator Cuff Test Results - Empty Can Test Results + PT-OP-M Strength Start: 01/23/19 17:02 Freq: Status: Active Protocol: Document 01/23/19 17:03 EA (Rec: 01/23/19 17:40 EA [id number]) Shoulder Strength Shoulder Manual Muscle Testing Right Flexion 3+ Fair+ Extension 4- Good- Abduction (C5) 3+ Fair+ Adduction 4- Good- External Rotation 3+ Fair+ Internal Rotation 3+ Fair+ Horizontal Abduction 4- Good- Horizontal Adduction 4- Good- Comments Weakness maybe due to pain and muscle guarding Left Reason Not Measured WFL PT-OP-Q Treatments Start: 01/23/19 17:02 Freq: Status: Active Protocol: Document 03/26/19 16:48 EA (Rec: 03/26/19 16:55 EA [id number]) Cardio Equipment Upper Body Ergometer (UBE) Duration (Minutes) 6 RPM 12 Height 6 Gym Equipment Cable Column (Body Solid) Rows Resistance 30# Reps/Time x 15 reps x 2 Lat Pull Down Details pain free range Resistance 30# Reps/Time x 15 reps x 2 Therapeutic Exercises Sidelying Exercises 1 Sidelying Exercise Name Abd, Horizontal Abd Resistance 1-2# wrist wgts Reps/Minutes x 8-12 reps each Sitting Exercises 2 Sitting Exercise Name DB side raises 0-90 deg Resistance 2-3# Reps/Minutes x 12 reps x 2 1 Sitting Exercise Name DB curls Resistance 5-7# Reps/Minutes x 12 reps x 2 Standing Exercises 5 Standing Exercise Name Floor to waist lift with weight fixed to boty Resistance 10 lbs Reps/Minutes x 5 reps Comments Body mechanics focus 4 Standing Exercise Name Shoulder ext and row Resistance Lv 2-3 Reps/Minutes x 15 reps x 2 3 Standing Exercise Name ER/IR Resistance Lv 2 Reps/Minutes x 10 reps x 2 2 Standing Exercise Name T-bar front raises Resistance 4-6lb Reps/Minutes 12 reps x 2 1 Standing Exercise Name wall slides: Flexion/ABD Resistance 2# Aw Reps/Minutes x 20 reps x 2 PT-OP-R Modalities Start: 01/23/19 17:02 Freq: Status: Active Protocol: Document 03/26/19 16:48 EA (Rec: 03/26/19 16:55 EA [id number]) Hot Pack/Cold Pack Treatment Cold Pack Location right shoulder Patient Position Hooklying PT-OP-T Assessment and Plan Start: 01/23/19 17:02 Freq: Status: Active Protocol: Document 03/26/19 16:48 EA (Rec: 03/26/19 16:55 EA [id number]) Physical Therapy Assessment Assessment Summary Assessment Improved strength in standing exercises; discomfort noted only with SL horiz ABD Physical Therapy Plan Next Visit Focus/Plan Next Note Type Treatment Note Next Visit Plan Progress as tolerated
--- NOTE | 2019-04-03 09:02 | PT.OTN ---
Current Diagnoses Strain of unspecified muscle, fascia and tendon at shoulder and upper arm level, right arm, initial encounter (04/03/19) Physical Therapy Treatment Note PT-OP-A Visit Information Start: 01/23/19 17:02 Freq: Status: Active Protocol: Document 04/03/19 08:56 SA (Rec: 04/03/19 09:02 SA [email or web address]) Out-Patient Physical Therapy Visit Information Visit Information Visit Type Treatment Note Visit Start Time 07:30 Visit Stop Time 08:18 Total Visit Minutes 48 Visit Number 11 Number of .NET PROGRAMMER Visits 1 PT-OP-B Current Condition Start: 01/23/19 17:02 Freq: Status: Active Protocol: Document 03/22/19 13:42 EA (Rec: 03/22/19 13:46 EA [id number]) Current Condition History of Current Condition Onset Date 12/14/2018 Current Complaints Right shoulder elevation difficulty due to pain and weakness History of Current Condition Patient reports present condition started 12/14/18 while lifting box of powder with 50 lbs weight to transfer to mixer; he states that popped sound felt accompanied with pain and numbness to right shoulder and arm. Patient reports incident report filed and work for three more days. Pt mentioned pain and weakness did not resolved and prompted him to see a doctor which given pain meds and ordered X-ray and MRI . Prior Treatments and Tests MRI: reveals partial tear to right SS Future Testing and Treatments Planned None identified Treatment Goals Patient/Caregiver Goals Patient wants to get back to previous level of function Prior Functional Status Baseline Function- ADL's Independent Baseline Function- Mobility Independent Baseline Function- Gait indep Baseline Function- Work/School Works active with lots of lifting, pulling and pushing. Baseline Function- Recreation/Hobbies Home personal fitness workout Current Functional Impairments (Reported) Functional Limitations- ADL's Difficulty in all activites that requires shoulder overhead movements, lifting, pulling and pushing. Functional Limitations- Mobility/Gait Indep Functional Limitations- Work/School Out of work 3 days after the injury until to this date. Functional Limitations- Recreation/ Unable to perform personal Hobbies fitness program PT-OP-C Subjective Start: 01/23/19 17:02 Freq: Status: Active Protocol: Document 04/03/19 08:56 SA (Rec: 04/03/19 09:02 SA [id number]) OP-PT Subjective Patient Comments Patient Comments Pt with continued reports of anterior shoulder pain, denies specific movement triggering pain, it is constant with random incidents of sharp pain . PT-OP-E Functional Tests Start: 01/23/19 17:02 Freq: Status: Active Protocol: Document 01/23/19 17:03 EA (Rec: 01/23/19 17:40 EA [id number]) Functional Tests Apley's Scratch Test Action 1: The subject is instructed to touch the opposite shoulder with his/her hand. This motion checks Glenohumeral adduction, internal rotation , horizontal adduction and scapular protraction Action 2: The subject is instructed to place his/her arm overhead and reach behind the neck to touch his/her upper back. This motion checks Glenohumeral abduction, external rotation and scapular upward rotation and elevation. Action 3: The subject puts his/her hand on the lower back and reaches upward as far as possible. This motion checks glenohumeral adduction, internal rotation and scapular retraction with downward rotation Action 1- Left able Action 1- Right able Action 2- Left T2 Action 2- Right C7 Action 3- Left T4 Action 3- Right L1 PT-OP-F Manual Assessment Start: 01/23/19 17:02 Freq: Status: Active Protocol: Document 01/23/19 17:03 EA (Rec: 01/23/19 17:40 EA [id number]) Manual Assessments Soft Tissue Assessment Soft Tissue Mobility Assessment Tight right shoulder adductors , anterior capsules. Joint Mobility Assessment Joint Mobility Assessment Hypo (Muscle guarding) PT-OP-J Posture/Palpation/Skin Start: 01/23/19 17:02 Freq: Status: Active Protocol: Document 01/23/19 17:03 EA (Rec: 01/23/19 17:40 EA [id number]) Posture Evaluation Position Standing Evaluation View post/lat Head/C-Spine Posture Forward Head T-Spine Posture Neutral L-Spine Posture Neutral Shoulder Posture (R) Rounded Comments Posture Comments Slight forward head with WFL trunk posture. Palpation Assessment Location One Palpation Location right shoulder: anterior/post/ lateral Palpation Findings Soft Tissue Tightness Tenderness Palpation Details grade 3/4 tender over SS/IS tendon, subacromial joint, and right scapular muscle PT-OP-K Range of Motion Start: 01/23/19 17:02 Freq: Status: Active Protocol: Document 03/22/19 16:08 EA (Rec: 03/26/19 14:09 EA [id number]) Shoulder Goniometric Range of Motion Shoulder Measured in Degrees Right Active Testing Position sitting and supine Flexion 160 Extension 60 Abduction 100 External Rotation at 90 degrees 90 Abduction Internal Rotation 45 PT-OP-L Special Tests Start: 01/23/19 17:02 Freq: Status: Active Protocol: Document 01/23/19 17:03 EA (Rec: 01/23/19 17:40 EA [id number]) Special Tests Shoulder Special Tests Lift-Off Rotator Cuff Test Results + Belly Press Test Results + Drop Arm Rotator Cuff Test Results - Empty Can Test Results + PT-OP-M Strength Start: 01/23/19 17:02 Freq: Status: Active Protocol: Document 01/23/19 17:03 EA (Rec: 01/23/19 17:40 EA [id number]) Shoulder Strength Shoulder Manual Muscle Testing Right Flexion 3+ Fair+ Extension 4- Good- Abduction (C5) 3+ Fair+ Adduction 4- Good- External Rotation 3+ Fair+ Internal Rotation 3+ Fair+ Horizontal Abduction 4- Good- Horizontal Adduction 4- Good- Comments Weakness maybe due to pain and muscle guarding Left Reason Not Measured WFL PT-OP-Q Treatments Start: 01/23/19 17:02 Freq: Status: Active Protocol: Document 04/03/19 08:56 SA (Rec: 04/03/19 09:02 SA [email or web address]) Cardio Equipment Upper Body Ergometer (UBE) Duration (Minutes) 6 RPM 12 Height 1 Other forward/backward Gym Equipment Cable Column (Body Solid) Rows Resistance 30# Reps/Time x 15 reps x 2 Lat Pull Down Details pain free range Resistance 30# Reps/Time x 15 reps x 2 Therapeutic Exercises Standing Exercises 5 Standing Exercise Name Floor to waist lift with weight fixed to boty Reps/Minutes x 5 reps Comments Body mechanics focus 4 Standing Exercise Name Shoulder ext and row Resistance Lv 2-3 Reps/Minutes x 15 reps x 2 2 Standing Exercise Name T-bar front raises Resistance 4-6lb Reps/Minutes 12 reps x 2 1 Standing Exercise Name wall slides: Flexion/ABD Resistance 2# Aw Reps/Minutes x 20 reps x 2 Manual Therapy Treatment Soft Tissue Mobilization STM Body Location R pec/UT/ant shoulder Mobilization Type Myofascial Release Rolling Strumming Intensity/Depth Moderate Body Position Supine Comments applied bio-freeze PT-OP-R Modalities Start: 01/23/19 17:02 Freq: Status: Active Protocol: Document 04/03/19 08:56 SA (Rec: 04/03/19 09:02 [id number]) Hot Pack/Cold Pack Treatment Cold Pack Location right shoulder Patient Position Hooklying Treatment Duration (minutes) 10 Patient Tolerance Good PT-OP-T Assessment and Plan Start: 01/23/19 17:02 Freq: Status: Active Protocol: Document 04/03/19 08:56 SA (Rec: 04/03/19 09:02 [email or web address]) Physical Therapy Assessment Assessment Summary Assessment Improving strength and shoulder stability, noted forward shoulder posture, needs cues with exercise to correct. Physical Therapy Plan Next Visit Focus/Plan Next Note Type Treatment Note Next Visit Plan Progress as tolerated. Pt to see Ortho on Tuesday
--- NOTE | 2019-05-24 12:14 | PT.OTN ---
Current Diagnoses Strain of unspecified muscle, fascia and tendon at shoulder and upper arm level, right arm, initial encounter (05/24/19) Physical Therapy Treatment Note PT-OP-A Visit Information Start: 01/23/19 17:02 Freq: Status: Active Protocol: Document 05/24/19 09:34 EA (Rec: 05/24/19 09:47 EA [id number]) Out-Patient Physical Therapy Visit Information Visit Information Visit Type Treatment Note Visit Note Re-eval performed Visit Start Time 09:00 Visit Stop Time 09:45 Total Visit Minutes 45 Visit Number 12 Precautions Precautions s/p left shoulder arthroscopic surgery 3 wks ago PT-OP-B Current Condition Start: 01/23/19 17:02 Freq: Status: Active Protocol: Document 05/24/19 09:34 EA (Rec: 05/24/19 09:47 EA [id number]) Current Condition History of Current Condition Onset Date Addendum: s/p R shoulder arthroscopic decompression 05/01 Current Complaints Right shoulder elevation difficulty due to pain and weakness History of Current Condition ADDENDUM05/24/19: Patient reports R shoulder a rthroscopic surgery on May [id number] with light activities allowed to left arm. Patient reports present condition started 12/14/18 while lifting box of powder with 50 lbs weight to transfer to mixer; he states that popped sound felt accompanied with pain and numbness to right shoulder and arm. Patient reports incident report filed and work for three more days. Pt mentioned pain and weakness did not resolved and prompted him to see a doctor which given pain meds and ordered X-ray and MRI . Prior Treatments and Tests MRI: reveals partial tear to right SS Future Testing and Treatments Planned None identified Prior Functional Status Baseline Function- ADL's Independent Baseline Function- Mobility Independent Baseline Function- Gait indep Baseline Function- Work/School Work that requires active lifting, pushing and pulling Baseline Function- Recreation/Hobbies No limitation in any activities that requires overhead movement Current Functional Impairments (Reported) Functional Limitations- ADL's Unable with overhead movement activities Functional Limitations- Mobility/Gait Indeep Functional Limitations- Work/School Light duties recommended Functional Limitations- Recreation/ Unable with overhead Hobbies activities PT-OP-C Subjective Start: 01/23/19 17:02 Freq: Status: Active Protocol: Document 05/24/19 09:34 EA (Rec: 05/24/19 09:47 EA [id number]) OP-PT Subjective Patient Comments Patient Comments Pt reports underwent right arthroscopic surgery on May 01; states light duties/ activities recommendation only . He reports that he's not back to work yet and waiting for light duties approval. Pt reports as well that pain still common problem as he is not taking pain med's due to side effect; states rest and ICE helps alleviate pain. Patient Reported Progress Improving Patient Questionnaires Quick Dash- Upper Extremity Quick Dash UE Score 90 Quick Dash UE Impairment 80 to 99% Impaired (Score 80- 99) PT-OP-E Functional Tests Start: 01/23/19 17:02 Freq: Status: Active Protocol: Document 05/24/19 09:34 EA (Rec: 05/24/19 09:47 EA [id number]) Functional Tests Apley's Scratch Test Action 1- Left slight limitation to touch post shoulder Action 1- Right able Action 2- Left T2 Action 2- Right C7 Action 3- Left T4 Action 3- Right L1 PT-OP-F Manual Assessment Start: 01/23/19 17:02 Freq: Status: Active Protocol: Document 01/23/19 17:03 EA (Rec: 01/23/19 17:40 EA [id number]) Manual Assessments Soft Tissue Assessment Soft Tissue Mobility Assessment Tight right shoulder adductors , anterior capsules. Joint Mobility Assessment Joint Mobility Assessment Hypo (Muscle guarding) PT-OP-J Posture/Palpation/Skin Start: 01/23/19 17:02 Freq: Status: Active Protocol: Document 05/24/19 09:34 EA (Rec: 05/24/19 09:47 EA [id number]) Palpation Assessment Location One Palpation Location right shoulder: anterior/post/ lateral Palpation Findings Soft Tissue Tightness Tenderness Palpation Details grade 3/4 tender over SS/IS tendon, subacromial joint, and right scapular muscle Skin Assessment Other Assessments Skin Assessment Comments No signs of active infection at surgical scar PT-OP-K Range of Motion Start: 01/23/19 17:02 Freq: Status: Active Protocol: Document 05/24/19 09:34 EA (Rec: 05/24/19 09:47 EA [id number]) Shoulder Goniometric Range of Motion Shoulder Right Active Testing Position sitting and supine Flexion 130 Extension 60 Abduction 110 External Rotation at 90 degrees 70 Abduction Internal Rotation 45 PT-OP-L Special Tests Start: 01/23/19 17:02 Freq: Status: Active Protocol: Document 01/23/19 17:03 EA (Rec: 01/23/19 17:40 EA [id number]) Special Tests Shoulder Special Tests Lift-Off Rotator Cuff Test Results + Belly Press Test Results + Drop Arm Rotator Cuff Test Results - Empty Can Test Results + PT-OP-M Strength Start: 01/23/19 17:02 Freq: Status: Active Protocol: Document 05/24/19 09:34 EA (Rec: 05/24/19 09:47 EA [id number]) Shoulder Strength Shoulder Manual Muscle Testing Right Flexion 3+ Fair+ Extension 4- Good- Abduction (C5) 3+ Fair+ Adduction 4- Good- External Rotation 3+ Fair+ Internal Rotation 3+ Fair+ Horizontal Abduction 4- Good- Horizontal Adduction 4- Good- Left Reason Not Measured WFL PT-OP-Q Treatments Start: 01/23/19 17:02 Freq: Status: Active Protocol: Document 05/24/19 09:34 EA (Rec: 05/24/19 09:47 EA [id number]) Therapeutic Exercises Supine Exercises 4 Supine Exercise Name Horiz ABD Reps/Minutes x 15 reps x2 3 Supine Exercise Name t-bar ER Resistance 1# Reps/Minutes x 15 reps x 2 2 Supine Exercise Name T-bar press Reps/Minutes x 15 reps x 2 1 Supine Exercise Name T-bars flexion Reps/Minutes x15 reps x 2 Comments 0-90deg Sidelying Exercises 1 Sidelying Exercise Name Abd, Horizontal Abd Reps/Minutes 15 reps each Self-Care/Home Management Treatment Education Patient Education Home Exercise Program Joint Protection Pain Management Posture Safety PT-OP-R Modalities Start: 01/23/19 17:02 Freq: Status: Active Protocol: Document 05/24/19 09:34 EA (Rec: 05/24/19 09:47 EA [id number]) Electric Stimulation Electric Stimulation Interferential Current (IFC) Body Location right SS/ant deltoid/traps Duration (Minutes) 15 Intensity 12 Contraction Type Normal Combined With Heat/Cold Cold Pack PT-OP-T Assessment and Plan Start: 01/23/19 17:02 Freq: Status: Active Protocol: Document 05/24/19 09:34 EA (Rec: 05/24/19 09:47 EA [id number]) Physical Therapy Assessment Rehab Potential Rehabilitation Potential Good Impairments Impairments Functional Activities Pain ROM Soft Tissue Mobility Strength Goals Four Impairment NO HEP in place Invasive Cardiovascular Technologist Goal (LTG) Patient will perform HEP (Home exercise program) independently LTG Duration 3 wks Three Impairment Impaired shoulder strength Invasive Cardiovascular Technologist Goal (LTG) Patient will increase shoulder ABD/F/ER strength by 1/2 grade for arm functional use. LTG Duration 4 wks Two Impairment Impaired left shoulder ROM Jail Goal (LTG) Patient will increase left shoulder flexion/ABD/ER AROM to functional range to enhance shoulder functional mobility LTG Duration 4 wks One Impairment quick Dash functional UE score of 90 Invasive Cardiovascular Technologist Goal (LTG) Patient will have Quick [place] functional score of < 35 LTG Duration 4 wks Progress Towards Goals Progress Towards Goals Slow Progress due to Medical Issues Slow Progress - Other Assessment Summary Assessment Patient medical condition is changed today. Currently s/p three weeks right shoulder arthroscopic surgery. Patient demonstrates typical post surgery symptoms of shoulder LOM with weakness and muscular guarding. Assessment reveals no signs of active infection with good healing scar. Patient educated for pre- caution and HEP and agreed to comply. Patient would cont. to benefit with skilled PT with the goals of enhancing shoulder AROM, strength to reach highest functional level prior to get back full work duties. Physical Therapy Plan Frequency and Duration Frequency of Treatment 2x/Week Duration of Treatment 6 wks Plan of Care Start Date 05/24/19 Plan of Care End Date 07/19/19 Therapeutic Interventions Therapeutic Interventions Home Exercise Program Joint Mobilizations Manual Therapy Patient/Caregiver Education Self-Care/Home Management Soft Tissue Mobilization Taping Therapeutic Exercises Modalities Cold Pack/Ice Massage Electric Stimulation Hot Packs Ultrasound Next Visit Focus/Plan Next Note Type Treatment Note Next Visit Plan Progress as tolerated. ROM, strengthening
--- NOTE | 2019-05-24 12:14 | PT.OPPOC ---
Current Diagnoses Strain of unspecified muscle, fascia and tendon at shoulder and upper arm level, right arm, initial encounter (05/24/19) Provider Visit Care Team Role Provider Type Gia Zaman PA-C Attending Provider Advanced Carbon Electrodes Supervisor Specialty: Medical Address: [address] [place] [address], [id number] Email: Plan Of Care PT-OP-T Assessment and Plan Start: 01/23/19 17:02 Freq: Status: Active Protocol: Document 05/24/19 09:34 EA (Rec: 05/24/19 09:47 EA [id number]) Physical Therapy Assessment Rehab Potential Rehabilitation Potential Good Impairments Impairments Functional Activities Pain ROM Soft Tissue Mobility Strength Goals Four Impairment NO HEP in place Jail Goal (LTG) Patient will perform HEP (Home exercise program) independently LTG Duration 3 wks Three Impairment Impaired shoulder strength Jail Goal (LTG) Patient will increase shoulder ABD/F/ER strength by 1/2 grade for arm functional use. LTG Duration 4 wks Two Impairment Impaired left shoulder ROM Tax Processor Goal (LTG) Patient will increase left shoulder flexion/ABD/ER AROM to functional range to enhance shoulder functional mobility LTG Duration 4 wks One Impairment quick Dash functional UE score of 90 Tax Processor Goal (LTG) Patient will have Quick Dask functional score of < 35 LTG Duration 4 wks Progress Towards Goals Progress Towards Goals Slow Progress due to Medical Issues Slow Progress - Other Assessment Summary Assessment Patient medical condition is changed today. Currently s/p three weeks right shoulder arthroscopic surgery. Patient demonstrates typical post surgery symptoms of shoulder LOM with weakness and muscular guarding. Assessment reveals no signs of active infection with good healing scar. Patient educated for pre- caution and HEP and agreed to comply. Patient would cont. to benefit with skilled PT with the goals of enhancing shoulder AROM, strength to reach highest functional level prior to get back full work duties. Physical Therapy Plan Frequency and Duration Frequency of Treatment 2x/Week Duration of Treatment 6 wks Plan of Care Start Date 05/24/19 Plan of Care End Date 07/19/19 Therapeutic Interventions Therapeutic Interventions Home Exercise Program Joint Mobilizations Manual Therapy Patient/Caregiver Education Self-Care/Home Management Soft Tissue Mobilization Taping Therapeutic Exercises Modalities Cold Pack/Ice Massage Electric Stimulation Hot Packs Ultrasound Next Visit Focus/Plan Next Note Type Treatment Note Next Visit Plan Progress as tolerated. ROM, strengthening Plan of Care Dates Plan of Care Start Date 05/24/19 Plan of Care End Date 07/19/19 Please Sign and Return: I have reviewed this Plan of Care and certify that the skilled therapy services above are required to meet the patient?s needs. Physician Signature Date Printed Name and Credentials Clinical Instructor Signature Printed Name and Credentials
--- NOTE | 2019-05-24 12:58 | PT.OTN ---
Current Diagnoses Strain of unspecified muscle, fascia and tendon at shoulder and upper arm level, right arm, initial encounter (05/24/19) Physical Therapy Treatment Note PT-OP-A Visit Information Start: 01/23/19 17:02 Freq: Status: Active Protocol: Document 05/24/19 09:34 EA (Rec: 05/24/19 09:47 EA [id number]) Out-Patient Physical Therapy Visit Information Visit Information Visit Type Treatment Note Visit Note Re-eval performed Visit Start Time 09:00 Visit Stop Time 09:45 Total Visit Minutes 45 Visit Number 12 Precautions Precautions s/p left shoulder arthroscopic surgery 3 wks ago PT-OP-B Current Condition Start: 01/23/19 17:02 Freq: Status: Active Protocol: Document 05/24/19 09:34 EA (Rec: 05/24/19 09:47 EA [id number]) Current Condition History of Current Condition Onset Date Addendum: s/p R shoulder arthroscopic decompression 05/01 Current Complaints Right shoulder elevation difficulty due to pain and weakness History of Current Condition ADDENDUM05/24/19: Patient reports R shoulder a rthroscopic surgery on May [id number] with light activities allowed to left arm. Patient reports present condition started 12/14/18 while lifting box of powder with 50 lbs weight to transfer to mixer; he states that popped sound felt accompanied with pain and numbness to right shoulder and arm. Patient reports incident report filed and work for three more days. Pt mentioned pain and weakness did not resolved and prompted him to see a doctor which given pain meds and ordered X-ray and MRI . Prior Treatments and Tests MRI: reveals partial tear to right SS Future Testing and Treatments Planned None identified Prior Functional Status Baseline Function- ADL's Independent Baseline Function- Mobility Independent Baseline Function- Gait indep Baseline Function- Work/School Work that requires active lifting, pushing and pulling Baseline Function- Recreation/Hobbies No limitation in any activities that requires overhead movement Current Functional Impairments (Reported) Functional Limitations- ADL's Unable with overhead movement activities Functional Limitations- Mobility/Gait Indeep Functional Limitations- Work/School Light duties recommended Functional Limitations- Recreation/ Unable with overhead Hobbies activities PT-OP-C Subjective Start: 01/23/19 17:02 Freq: Status: Active Protocol: Document 05/24/19 09:34 EA (Rec: 05/24/19 09:47 EA [id number]) OP-PT Subjective Patient Comments Patient Comments Pt reports underwent right arthroscopic surgery on May 01; states light duties/ activities recommendation only . He reports that he's not back to work yet and waiting for light duties approval. Pt reports as well that pain still common problem as he is not taking pain med's due to side effect; states rest and ICE helps alleviate pain. Patient Reported Progress Improving Patient Questionnaires Quick Dash- Upper Extremity Quick Dash UE Score 90 Quick Dash UE Impairment 80 to 99% Impaired (Score 80- 99) PT-OP-E Functional Tests Start: 01/23/19 17:02 Freq: Status: Active Protocol: Document 05/24/19 09:34 EA (Rec: 05/24/19 09:47 EA [id number]) Functional Tests Apley's Scratch Test Action 1- Left slight limitation to touch post shoulder Action 1- Right able Action 2- Left T2 Action 2- Right C7 Action 3- Left T4 Action 3- Right L1 PT-OP-F Manual Assessment Start: 01/23/19 17:02 Freq: Status: Active Protocol: Document 01/23/19 17:03 EA (Rec: 01/23/19 17:40 EA [id number]) Manual Assessments Soft Tissue Assessment Soft Tissue Mobility Assessment Tight right shoulder adductors , anterior capsules. Joint Mobility Assessment Joint Mobility Assessment Hypo (Muscle guarding) PT-OP-J Posture/Palpation/Skin Start: 01/23/19 17:02 Freq: Status: Active Protocol: Document 05/24/19 09:34 EA (Rec: 05/24/19 09:47 EA [id number]) Palpation Assessment Location One Palpation Location right shoulder: anterior/post/ lateral Palpation Findings Soft Tissue Tightness Tenderness Palpation Details grade 3/4 tender over SS/IS tendon, subacromial joint, and right scapular muscle Skin Assessment Other Assessments Skin Assessment Comments No signs of active infection at surgical scar PT-OP-K Range of Motion Start: 01/23/19 17:02 Freq: Status: Active Protocol: Document 05/24/19 09:34 EA (Rec: 05/24/19 09:47 EA [id number]) Shoulder Goniometric Range of Motion Shoulder Right Active Testing Position sitting and supine Flexion 130 Extension 60 Abduction 110 External Rotation at 90 degrees 70 Abduction Internal Rotation 45 PT-OP-L Special Tests Start: 01/23/19 17:02 Freq: Status: Active Protocol: Document 01/23/19 17:03 EA (Rec: 01/23/19 17:40 EA [id number]) Special Tests Shoulder Special Tests Lift-Off Rotator Cuff Test Results + Belly Press Test Results + Drop Arm Rotator Cuff Test Results - Empty Can Test Results + PT-OP-M Strength Start: 01/23/19 17:02 Freq: Status: Active Protocol: Document 05/24/19 09:34 EA (Rec: 05/24/19 09:47 EA [id number]) Shoulder Strength Shoulder Manual Muscle Testing Right Flexion 3+ Fair+ Extension 4- Good- Abduction (C5) 3+ Fair+ Adduction 4- Good- External Rotation 3+ Fair+ Internal Rotation 3+ Fair+ Horizontal Abduction 4- Good- Horizontal Adduction 4- Good- Left Reason Not Measured WFL PT-OP-Q Treatments Start: 01/23/19 17:02 Freq: Status: Active Protocol: Document 05/24/19 09:34 EA (Rec: 05/24/19 09:47 EA [id number]) Therapeutic Exercises Supine Exercises 4 Supine Exercise Name Horiz ABD Reps/Minutes x 15 reps x2 3 Supine Exercise Name t-bar ER Resistance 1# Reps/Minutes x 15 reps x 2 2 Supine Exercise Name T-bar press Reps/Minutes x 15 reps x 2 1 Supine Exercise Name T-bars flexion Reps/Minutes x15 reps x 2 Comments 0-90deg Sidelying Exercises 1 Sidelying Exercise Name Abd, Horizontal Abd Reps/Minutes 15 reps each Self-Care/Home Management Treatment Education Patient Education Home Exercise Program Joint Protection Pain Management Posture Safety PT-OP-R Modalities Start: 01/23/19 17:02 Freq: Status: Active Protocol: Document 05/24/19 09:34 EA (Rec: 05/24/19 09:47 EA [id number]) Electric Stimulation Electric Stimulation Interferential Current (IFC) Body Location right SS/ant deltoid/traps Duration (Minutes) 15 Intensity 12 Contraction Type Normal Combined With Heat/Cold Cold Pack PT-OP-T Assessment and Plan Start: 01/23/19 17:02 Freq: Status: Active Protocol: Document 05/24/19 09:34 EA (Rec: 05/24/19 09:47 EA [id number]) Physical Therapy Assessment Rehab Potential Rehabilitation Potential Good Impairments Impairments Functional Activities Pain ROM Soft Tissue Mobility Strength Goals Four Impairment NO HEP in place Pet Walker Goal (LTG) Patient will perform HEP (Home exercise program) independently LTG Duration 3 wks Three Impairment Impaired shoulder strength Pet Walker Goal (LTG) Patient will increase shoulder ABD/F/ER strength by 1/2 grade for arm functional use. LTG Duration 4 wks Two Impairment Impaired left shoulder ROM Assisted Goal (LTG) Patient will increase left shoulder flexion/ABD/ER AROM to functional range to enhance shoulder functional mobility LTG Duration 4 wks One Impairment quick Dash functional UE score of 90 Pet Walker Goal (LTG) Patient will have Quick Dask functional score of < 35 LTG Duration 4 wks Progress Towards Goals Progress Towards Goals Slow Progress due to Medical Issues Slow Progress - Other Assessment Summary Assessment Patient medical condition is changed today. Currently s/p three weeks right shoulder arthroscopic surgery. Patient demonstrates typical post surgery symptoms of shoulder LOM with weakness and muscular guarding. Assessment reveals no signs of active infection with good healing scar. Patient educated for pre- caution and HEP and agreed to comply. Patient would cont. to benefit with skilled PT with the goals of enhancing shoulder AROM, strength to reach highest functional level prior to get back full work duties. Physical Therapy Plan Frequency and Duration Frequency of Treatment 2x/Week Duration of Treatment 6 wks Plan of Care Start Date 05/24/19 Plan of Care End Date 07/19/19 Therapeutic Interventions Therapeutic Interventions Home Exercise Program Joint Mobilizations Manual Therapy Patient/Caregiver Education Self-Care/Home Management Soft Tissue Mobilization Taping Therapeutic Exercises Modalities Cold Pack/Ice Massage Electric Stimulation Hot Packs Ultrasound Next Visit Focus/Plan Next Note Type Treatment Note Next Visit Plan Progress as tolerated. ROM, strengthening
--- NOTE | 2019-05-24 12:58 | PT.OPPOC ---
Current Diagnoses Strain of unspecified muscle, fascia and tendon at shoulder and upper arm level, right arm, initial encounter (05/24/19) Provider Visit Care Team Role Provider Type Gia Zaman PA-C Attending Provider Advanced Granite Polisher Machine Specialty: Medical Address: [address] [place] [address], [id number] Email: Plan Of Care PT-OP-T Assessment and Plan Start: 01/23/19 17:02 Freq: Status: Active Protocol: Document 05/24/19 09:34 EA (Rec: 05/24/19 09:47 EA [id number]) Physical Therapy Assessment Rehab Potential Rehabilitation Potential Good Impairments Impairments Functional Activities Pain ROM Soft Tissue Mobility Strength Goals Four Impairment NO HEP in place M[facility] Goal (LTG) Patient will perform HEP (Home exercise program) independently LTG Duration 3 wks Three Impairment Impaired shoulder strength [facility] Goal (LTG) Patient will increase shoulder ABD/F/ER strength by 1/2 grade for arm functional use. LTG Duration 4 wks Two Impairment Impaired left shoulder ROM Escort Car Driver Goal (LTG) Patient will increase left shoulder flexion/ABD/ER AROM to functional range to enhance shoulder functional mobility LTG Duration 4 wks One Impairment quick Dash functional UE score of 90 Escort Car Driver Goal (LTG) Patient will have Quick Dask functional score of < 35 LTG Duration 4 wks Progress Towards Goals Progress Towards Goals Slow Progress due to Medical Issues Slow Progress - Other Assessment Summary Assessment Patient medical condition is changed today. Currently s/p three weeks right shoulder arthroscopic surgery. Patient demonstrates typical post surgery symptoms of shoulder LOM with weakness and muscular guarding. Assessment reveals no signs of active infection with good healing scar. Patient educated for pre- caution and HEP and agreed to comply. Patient would cont. to benefit with skilled PT with the goals of enhancing shoulder AROM, strength to reach highest functional level prior to get back full work duties. Physical Therapy Plan Frequency and Duration Frequency of Treatment 2x/Week Duration of Treatment 6 wks Plan of Care Start Date 05/24/19 Plan of Care End Date 07/19/19 Therapeutic Interventions Therapeutic Interventions Home Exercise Program Joint Mobilizations Manual Therapy Patient/Caregiver Education Self-Care/Home Management Soft Tissue Mobilization Taping Therapeutic Exercises Modalities Cold Pack/Ice Massage Electric Stimulation Hot Packs Ultrasound Next Visit Focus/Plan Next Note Type Treatment Note Next Visit Plan Progress as tolerated. ROM, strengthening Plan of Care Dates Plan of Care Start Date 05/24/19 Plan of Care End Date 07/19/19 Please Sign and Return: I have reviewed this Plan of Care and certify that the skilled therapy services above are required to meet the patient?s needs. Physician Signature Date Printed Name and Credentials Clinical Instructor Signature Printed Name and Credentials
--- NOTE | 2019-06-06 11:15 | PT.OTN ---
Current Diagnoses Strain of unspecified muscle, fascia and tendon at shoulder and upper arm level, right arm, initial encounter (06/06/19) Physical Therapy Treatment Note PT-OP-A Visit Information Start: 01/23/19 17:02 Freq: Status: Active Protocol: Document 06/06/19 11:01 EA (Rec: 06/06/19 11:08 EA [id number]) Out-Patient Physical Therapy Visit Information Visit Information Visit Type Treatment Note Visit Start Time 10:30 Visit Stop Time 11:18 Total Visit Minutes 48 PT-OP-B Current Condition Start: 01/23/19 17:02 Freq: Status: Active Protocol: Document 05/24/19 09:34 EA (Rec: 05/24/19 09:47 EA [id number]) Current Condition History of Current Condition Onset Date Addendum: s/p R shoulder arthroscopic decompression 05/01 Current Complaints Right shoulder elevation difficulty due to pain and weakness History of Current Condition ADDENDUM05/24/19: Patient reports R shoulder a rthroscopic surgery on May [id number] with light activities allowed to left arm. Patient reports present condition started 12/14/18 while lifting box of powder with 50 lbs weight to transfer to mixer; he states that popped sound felt accompanied with pain and numbness to right shoulder and arm. Patient reports incident report filed and work for three more days. Pt mentioned pain and weakness did not resolved and prompted him to see a doctor which given pain meds and ordered X-ray and MRI . Prior Treatments and Tests MRI: reveals partial tear to right SS Future Testing and Treatments Planned None identified Prior Functional Status Baseline Function- ADL's Independent Baseline Function- Mobility Independent Baseline Function- Gait indep Baseline Function- Work/School Work that requires active lifting, pushing and pulling Baseline Function- Recreation/Hobbies No limitation in any activities that requires overhead movement Current Functional Impairments (Reported) Functional Limitations- ADL's Unable with overhead movement activities Functional Limitations- Mobility/Gait Indeep Functional Limitations- Work/School Light duties recommended Functional Limitations- Recreation/ Unable with overhead Hobbies activities PT-OP-C Subjective Start: 01/23/19 17:02 Freq: Status: Active Protocol: Document 06/06/19 11:01 EA (Rec: 06/06/19 11:08 EA [id number]) OP-PT Subjective Patient Comments Patient Comments Pt reports stopped taking pain meds due to getting addictive to it; states pain control of 6/10 mostly with the use of ICE; states he is concern about resting tremors on right hand. Pt denies any check up with the doctor yet. PT-OP-E Functional Tests Start: 01/23/19 17:02 Freq: Status: Active Protocol: Document 05/24/19 09:34 EA (Rec: 05/24/19 09:47 EA [id number]) Functional Tests Apley's Scratch Test Action 1- Left slight limitation to touch post shoulder Action 1- Right able Action 2- Left T2 Action 2- Right C7 Action 3- Left T4 Action 3- Right L1 PT-OP-F Manual Assessment Start: 01/23/19 17:02 Freq: Status: Active Protocol: Document 01/23/19 17:03 EA (Rec: 01/23/19 17:40 EA [id number]) Manual Assessments Soft Tissue Assessment Soft Tissue Mobility Assessment Tight right shoulder adductors , anterior capsules. Joint Mobility Assessment Joint Mobility Assessment Hypo (Muscle guarding) PT-OP-J Posture/Palpation/Skin Start: 01/23/19 17:02 Freq: Status: Active Protocol: Document 05/24/19 09:34 EA (Rec: 05/24/19 09:47 EA [id number]) Palpation Assessment Location One Palpation Location right shoulder: anterior/post/ lateral Palpation Findings Soft Tissue Tightness Tenderness Palpation Details grade 3/4 tender over SS/IS tendon, subacromial joint, and right scapular muscle Skin Assessment Other Assessments Skin Assessment Comments No signs of active infection at surgical scar PT-OP-K Range of Motion Start: 01/23/19 17:02 Freq: Status: Active Protocol: Document 05/24/19 09:34 EA (Rec: 05/24/19 09:47 EA [id number]) Shoulder Goniometric Range of Motion Shoulder Right Active Testing Position sitting and supine Flexion 130 Extension 60 Abduction 110 External Rotation at 90 degrees 70 Abduction Internal Rotation 45 PT-OP-L Special Tests Start: 01/23/19 17:02 Freq: Status: Active Protocol: Document 01/23/19 17:03 EA (Rec: 01/23/19 17:40 EA [id number]) Special Tests Shoulder Special Tests Lift-Off Rotator Cuff Test Results + Belly Press Test Results + Drop Arm Rotator Cuff Test Results - Empty Can Test Results + PT-OP-M Strength Start: 01/23/19 17:02 Freq: Status: Active Protocol: Document 05/24/19 09:34 EA (Rec: 05/24/19 09:47 EA [id number]) Shoulder Strength Shoulder Manual Muscle Testing Right Flexion 3+ Fair+ Extension 4- Good- Abduction (C5) 3+ Fair+ Adduction 4- Good- External Rotation 3+ Fair+ Internal Rotation 3+ Fair+ Horizontal Abduction 4- Good- Horizontal Adduction 4- Good- Left Reason Not Measured WFL PT-OP-Q Treatments Start: 01/23/19 17:02 Freq: Status: Active Protocol: Document 06/06/19 11:01 EA (Rec: 06/06/19 11:08 EA [id number]) Cardio Equipment Upper Body Ergometer (UBE) Duration (Minutes) 6 RPM 12 Height 1 Other forward/backward Gym Equipment Cable Column (Body Solid) Rows Details low row Resistance 20# Reps/Time x 15 reps x 2 Therapeutic Exercises Supine Exercises 4 Supine Exercise Name Horiz ABD Reps/Minutes x 15 reps x2 2 Supine Exercise Name T-bar press Resistance 4 lbs Reps/Minutes x 15 reps x 2 Sitting Exercises 2 Sitting Exercise Name DB side raises 0-90 deg Resistance 1# Reps/Minutes x 12 reps x 2 Standing Exercises 6 Standing Exercise Name DB curl Equipment Used 5lbs Reps/Minutes x 15 reps 4 Standing Exercise Name Shoulder ext and row Resistance Lv 2 Reps/Minutes x 15 reps x 2 3 Standing Exercise Name ER/IR Resistance Lv 1 Reps/Minutes x 10 reps x 2 2 Standing Exercise Name T-bar front raises Reps/Minutes 12 reps x 2 1 Standing Exercise Name wall slides: Flexion/ABD Resistance 1# Aw Reps/Minutes x 20 reps x 2 PT-OP-R Modalities Start: 01/23/19 17:02 Freq: Status: Active Protocol: Document 06/06/19 11:01 EA (Rec: 06/06/19 11:08 EA [id number]) Hot Pack/Cold Pack Treatment Cold Pack Location right shoulder Patient Position Hooklying Treatment Duration (minutes) 10 Patient Tolerance Good PT-OP-T Assessment and Plan Start: 01/23/19 17:02 Freq: Status: Active Protocol: Document 06/06/19 11:01 [email or web address] (Rec: 06/06/19 11:08 EA [id number]) Physical Therapy Assessment Assessment Summary Assessment Tolerated treatment well. No signs of tremors during and after therex. Patient performed exercises with good form with no signs of discomfort and shoulder substitution. Overall patient is progressing well. I recommended to see his doctor if tremors persist. Physical Therapy Plan Next Visit Focus/Plan Next Note Type Treatment Note Next Visit Plan Progress as tolerated. ROM, strengthening
--- NOTE | 2019-06-13 08:59 | PT.OTN ---
Current Diagnoses Strain of unspecified muscle, fascia and tendon at shoulder and upper arm level, right arm, initial encounter (06/13/19) Physical Therapy Treatment Note PT-OP-A Visit Information Start: 01/23/19 17:02 Freq: Status: Active Protocol: Document 06/06/19 11:01 EA (Rec: 06/06/19 11:08 EA [id number]) Out-Patient Physical Therapy Visit Information Visit Information Visit Type Treatment Note Visit Start Time 10:30 Visit Stop Time 11:18 Total Visit Minutes 48 PT-OP-B Current Condition Start: 01/23/19 17:02 Freq: Status: Active Protocol: Document 05/24/19 09:34 EA (Rec: 05/24/19 09:47 EA [id number]) Current Condition History of Current Condition Onset Date Addendum: s/p R shoulder arthroscopic decompression 05/01 Current Complaints Right shoulder elevation difficulty due to pain and weakness History of Current Condition ADDENDUM05/24/19: Patient reports R shoulder a rthroscopic surgery on May [id number] with light activities allowed to left arm. Patient reports present condition started 12/14/18 while lifting box of powder with 50 lbs weight to transfer to mixer; he states that popped sound felt accompanied with pain and numbness to right shoulder and arm. Patient reports incident report filed and work for three more days. Pt mentioned pain and weakness did not resolved and prompted him to see a doctor which given pain meds and ordered X-ray and MRI . Prior Treatments and Tests MRI: reveals partial tear to right SS Future Testing and Treatments Planned None identified Prior Functional Status Baseline Function- ADL's Independent Baseline Function- Mobility Independent Baseline Function- Gait indep Baseline Function- Work/School Work that requires active lifting, pushing and pulling Baseline Function- Recreation/Hobbies No limitation in any activities that requires overhead movement Current Functional Impairments (Reported) Functional Limitations- ADL's Unable with overhead movement activities Functional Limitations- Mobility/Gait Indeep Functional Limitations- Work/School Light duties recommended Functional Limitations- Recreation/ Unable with overhead Hobbies activities PT-OP-C Subjective Start: 01/23/19 17:02 Freq: Status: Active Protocol: Document 06/13/19 08:14 EA (Rec: 06/13/19 08:59 EA [id number]) OP-PT Subjective Patient Comments Patient Comments Pt reports went to his doctor about right hand tremor and advised to keep watching it if severity increased. Pt reports that his clearance to go back to light duties is not signs yet and he want to go back now. He mentioned that ROM and strength is progresing well but pain is not. Patient Reported Progress Improving PT-OP-E Functional Tests Start: 01/23/19 17:02 Freq: Status: Active Protocol: Document 05/24/19 09:34 EA (Rec: 05/24/19 09:47 EA [id number]) Functional Tests Apley's Scratch Test Action 1- Left slight limitation to touch post shoulder Action 1- Right able Action 2- Left T2 Action 2- Right C7 Action 3- Left T4 Action 3- Right L1 PT-OP-F Manual Assessment Start: 01/23/19 17:02 Freq: Status: Active Protocol: Document 01/23/19 17:03 EA (Rec: 01/23/19 17:40 EA [id number]) Manual Assessments Soft Tissue Assessment Soft Tissue Mobility Assessment Tight right shoulder adductors , anterior capsules. Joint Mobility Assessment Joint Mobility Assessment Hypo (Muscle guarding) PT-OP-J Posture/Palpation/Skin Start: 01/23/19 17:02 Freq: Status: Active Protocol: Document 05/24/19 09:34 EA (Rec: 05/24/19 09:47 EA [id number]) Palpation Assessment Location One Palpation Location right shoulder: anterior/post/ lateral Palpation Findings Soft Tissue Tightness Tenderness Palpation Details grade 3/4 tender over SS/IS tendon, subacromial joint, and right scapular muscle Skin Assessment Other Assessments Skin Assessment Comments No signs of active infection at surgical scar PT-OP-K Range of Motion Start: 01/23/19 17:02 Freq: Status: Active Protocol: Document 05/24/19 09:34 EA (Rec: 05/24/19 09:47 EA [id number]) Shoulder Goniometric Range of Motion Shoulder Right Active Testing Position sitting and supine Flexion 130 Extension 60 Abduction 110 External Rotation at 90 degrees 70 Abduction Internal Rotation 45 PT-OP-L Special Tests Start: 01/23/19 17:02 Freq: Status: Active Protocol: Document 01/23/19 17:03 EA (Rec: 01/23/19 17:40 EA [id number]) Special Tests Shoulder Special Tests Lift-Off Rotator Cuff Test Results + Belly Press Test Results + Drop Arm Rotator Cuff Test Results - Empty Can Test Results + PT-OP-M Strength Start: 01/23/19 17:02 Freq: Status: Active Protocol: Document 05/24/19 09:34 EA (Rec: 05/24/19 09:47 EA [id number]) Shoulder Strength Shoulder Manual Muscle Testing Right Flexion 3+ Fair+ Extension 4- Good- Abduction (C5) 3+ Fair+ Adduction 4- Good- External Rotation 3+ Fair+ Internal Rotation 3+ Fair+ Horizontal Abduction 4- Good- Horizontal Adduction 4- Good- Left Reason Not Measured WFL PT-OP-Q Treatments Start: 01/23/19 17:02 Freq: Status: Active Protocol: Document 06/13/19 08:14 EA (Rec: 06/13/19 08:59 EA [id number]) Cardio Equipment Upper Body Ergometer (UBE) Duration (Minutes) 6 RPM 30 Height 5 Other forward/backward Therapeutic Exercises Supine Exercises 4 Supine Exercise Name Horiz ABD Reps/Minutes x 15 reps x2 2 Supine Exercise Name T-bar press Resistance 4 lbs Reps/Minutes x 15 reps x 2 1 Supine Exercise Name T-bars flexion Resistance 4 lbs Reps/Minutes x15 reps x 2 Comments 0-90deg Sitting Exercises 2 Sitting Exercise Name DB side raises 0-90 deg Resistance 1-2# Reps/Minutes x 12 reps x 2 Standing Exercises 6 Standing Exercise Name DB curl Equipment Used 5lbs Reps/Minutes x 15 reps 4 Standing Exercise Name Shoulder ext and row Resistance Lv 2-4 Reps/Minutes x 15 reps x 2 3 Standing Exercise Name ER/IR Resistance Lv 2 Reps/Minutes x 10 reps x 2 2 Standing Exercise Name T-bar front raises Resistance 2 lbs Reps/Minutes 12 reps x 2 1 Standing Exercise Name wall slides: Flexion/ABD Resistance 4# Aw Reps/Minutes x 15 reps x 2 Comments T-bar PT-OP-R Modalities Start: 01/23/19 17:02 Freq: Status: Active Protocol: Document 06/13/19 08:14 EA (Rec: 06/13/19 08:59 EA [id number]) Hot Pack/Cold Pack Treatment Cold Pack Location right shoulder Patient Position Hooklying Treatment Duration (minutes) 10 Patient Tolerance Good PT-OP-T Assessment and Plan Start: 01/23/19 17:02 Freq: Status: Active Protocol: Document 06/13/19 08:14 EA (Rec: 06/13/19 08:59 EA [id number]) Physical Therapy Assessment Assessment Summary Assessment Pt shows no tremors at before, during and after the treatment , he did not show any discomfort and pain complaints during therx. He shows great improvement to ROM and strength . Physical Therapy Plan Next Visit Focus/Plan Next Note Type Treatment Note Next Visit Plan Functional exercises
--- NOTE | 2019-06-18 16:00 | PT.OTN ---
Current Diagnoses Strain of unspecified muscle, fascia and tendon at shoulder and upper arm level, right arm, initial encounter (06/18/19) Physical Therapy Treatment Note PT-OP-A Visit Information Start: 01/23/19 17:02 Freq: Status: Active Protocol: Document 06/18/19 15:12 EA (Rec: 06/18/19 15:17 EA [id number]) Out-Patient Physical Therapy Visit Information Visit Information Visit Type Treatment Note Visit Start Time 14:30 Visit Stop Time 15:18 Total Visit Minutes 48 Visit Number 14 PT-OP-B Current Condition Start: 01/23/19 17:02 Freq: Status: Active Protocol: Document 05/24/19 09:34 EA (Rec: 05/24/19 09:47 EA [id number]) Current Condition History of Current Condition Onset Date Addendum: s/p R shoulder arthroscopic decompression 05/01 Current Complaints Right shoulder elevation difficulty due to pain and weakness History of Current Condition ADDENDUM05/24/19: Patient reports R shoulder a rthroscopic surgery on May [id number] with light activities allowed to left arm. Patient reports present condition started 12/14/18 while lifting box of powder with 50 lbs weight to transfer to mixer; he states that popped sound felt accompanied with pain and numbness to right shoulder and arm. Patient reports incident report filed and work for three more days. Pt mentioned pain and weakness did not resolved and prompted him to see a doctor which given pain meds and ordered X-ray and MRI . Prior Treatments and Tests MRI: reveals partial tear to right SS Future Testing and Treatments Planned None identified Prior Functional Status Baseline Function- ADL's Independent Baseline Function- Mobility Independent Baseline Function- Gait indep Baseline Function- Work/School Work that requires active lifting, pushing and pulling Baseline Function- Recreation/Hobbies No limitation in any activities that requires overhead movement Current Functional Impairments (Reported) Functional Limitations- ADL's Unable with overhead movement activities Functional Limitations- Mobility/Gait Indeep Functional Limitations- Work/School Light duties recommended Functional Limitations- Recreation/ Unable with overhead Hobbies activities PT-OP-C Subjective Start: 01/23/19 17:02 Freq: Status: Active Protocol: Document 06/18/19 15:12 EA (Rec: 06/18/19 15:17 EA [id number]) OP-PT Subjective Patient Comments Patient Comments Pt reports compliant with HEP; states ROM and strength is improve except with pain. PT-OP-E Functional Tests Start: 01/23/19 17:02 Freq: Status: Active Protocol: Document 05/24/19 09:34 EA (Rec: 05/24/19 09:47 EA [id number]) Functional Tests Apley's Scratch Test Action 1- Left slight limitation to touch post shoulder Action 1- Right able Action 2- Left T2 Action 2- Right C7 Action 3- Left T4 Action 3- Right L1 PT-OP-F Manual Assessment Start: 01/23/19 17:02 Freq: Status: Active Protocol: Document 01/23/19 17:03 EA (Rec: 01/23/19 17:40 EA [id number]) Manual Assessments Soft Tissue Assessment Soft Tissue Mobility Assessment Tight right shoulder adductors , anterior capsules. Joint Mobility Assessment Joint Mobility Assessment Hypo (Muscle guarding) PT-OP-J Posture/Palpation/Skin Start: 01/23/19 17:02 Freq: Status: Active Protocol: Document 05/24/19 09:34 EA (Rec: 05/24/19 09:47 EA [id number]) Palpation Assessment Location One Palpation Location right shoulder: anterior/post/ lateral Palpation Findings Soft Tissue Tightness Tenderness Palpation Details grade 3/4 tender over SS/IS tendon, subacromial joint, and right scapular muscle Skin Assessment Other Assessments Skin Assessment Comments No signs of active infection at surgical scar PT-OP-K Range of Motion Start: 01/23/19 17:02 Freq: Status: Active Protocol: Document 05/24/19 09:34 EA (Rec: 05/24/19 09:47 EA [id number]) Shoulder Goniometric Range of Motion Shoulder Right Active Testing Position sitting and supine Flexion 130 Extension 60 Abduction 110 External Rotation at 90 degrees 70 Abduction Internal Rotation 45 PT-OP-L Special Tests Start: 01/23/19 17:02 Freq: Status: Active Protocol: Document 01/23/19 17:03 EA (Rec: 01/23/19 17:40 EA [id number]) Special Tests Shoulder Special Tests Lift-Off Rotator Cuff Test Results + Belly Press Test Results + Drop Arm Rotator Cuff Test Results - Empty Can Test Results + PT-OP-M Strength Start: 02/26/19 17:02 Freq: Status: Active Protocol: Document 05/24/19 09:34 EA (Rec: 05/24/19 09:47 EA [id number]) Shoulder Strength Shoulder Manual Muscle Testing Right Flexion 3+ Fair+ Extension 4- Good- Abduction (C5) 3+ Fair+ Adduction 4- Good- External Rotation 3+ Fair+ Internal Rotation 3+ Fair+ Horizontal Abduction 4- Good- Horizontal Adduction 4- Good- Left Reason Not Measured WFL PT-OP-Q Treatments Start: 01/23/19 17:02 Freq: Status: Active Protocol: Document 06/18/19 15:12 EA (Rec: 06/18/19 15:17 EA [id number]) Cardio Equipment Upper Body Ergometer (UBE) Duration (Minutes) 6 RPM 30 Height 6 Other forward/backward Gym Equipment Cable Column (Body Solid) Rows Details low row Resistance 230# Reps/Time x 15 reps x 2 Lat Pull Down Details pain free range Resistance 30# Reps/Time x 15 reps x 2 Therapeutic Exercises Supine Exercises 4 Supine Exercise Name Horiz ABD Resistance 2# Reps/Minutes x 15 reps x2 2 Supine Exercise Name T-bar press Resistance 5 lbs Reps/Minutes x 15 reps x 2 1 Supine Exercise Name T-bars flexion Resistance 4 lbs Reps/Minutes x15 reps x 2 Comments 0-90deg Sitting Exercises 2 Sitting Exercise Name DB side raises 0-90 deg Resistance 1-2# Reps/Minutes x 12 reps x 2 1 Sitting Exercise Name shoulder press Side bilateral Resistance 2# Reps/Minutes 15 reps Standing Exercises 6 Standing Exercise Name DB curl Equipment Used 5lbs Reps/Minutes x 15 reps 5 Standing Exercise Name inclined push up Reps/Minutes x 10 reps x2 4 Standing Exercise Name Shoulder ext and row Resistance Lv 2-4 Reps/Minutes x 15 reps x 2 3 Standing Exercise Name ER/IR Resistance Lv 2 Reps/Minutes x 10 reps x 2 PT-OP-R Modalities Start: 01/23/19 17:02 Freq: Status: Active Protocol: Document 06/18/19 15:12 EA (Rec: 06/18/19 15:17 EA [id number]) Hot Pack/Cold Pack Treatment Cold Pack Location right shoulder Patient Position Hooklying Treatment Duration (minutes) 10 Patient Tolerance Good PT-OP-T Assessment and Plan Start: 01/23/19 17:02 Freq: Status: Active Protocol: Document 06/18/19 15:12 EA (Rec: 06/18/19 15:17 EA [id number]) Physical Therapy Assessment Assessment Summary Assessment Tolerated treatment well. Noted improved strength and ROm at this time. Physical Therapy Plan Next Visit Focus/Plan Next Note Type Treatment Note Next Visit Plan Functional exercises
--- NOTE | 2019-06-21 17:41 | PT.OTN ---
Current Diagnoses Strain of unspecified muscle, fascia and tendon at shoulder and upper arm level, right arm, initial encounter (06/21/19) Physical Therapy Treatment Note PT-OP-A Visit Information Start: 01/23/19 17:02 Freq: Status: Active Protocol: Document 06/21/19 16:31 EA (Rec: 06/21/19 16:36 EA [id number]) Out-Patient Physical Therapy Visit Information Visit Information Visit Type Treatment Note Visit Start Time 16:00 Visit Stop Time 16:50 Total Visit Minutes 50 Visit Number 15 PT-OP-B Current Condition Start: 01/23/19 17:02 Freq: Status: Active Protocol: Document 05/24/19 09:34 EA (Rec: 05/24/19 09:47 EA [id number]) Current Condition History of Current Condition Onset Date Addendum: s/p R shoulder arthroscopic decompression 05/01 Current Complaints Right shoulder elevation difficulty due to pain and weakness History of Current Condition ADDENDUM05/24/19: Patient reports R shoulder a rthroscopic surgery on May 012017 with light activities allowed to left arm. Patient reports present condition started 12/14/18 while lifting box of powder with 50 lbs weight to transfer to mixer; he states that popped sound felt accompanied with pain and numbness to right shoulder and arm. Patient reports incident report filed and work for three more days. Pt mentioned pain and weakness did not resolved and prompted him to see a doctor which given pain meds and ordered X-ray and MRI . Prior Treatments and Tests MRI: reveals partial tear to right SS Future Testing and Treatments Planned None identified Prior Functional Status Baseline Function- ADL's Independent Baseline Function- Mobility Independent Baseline Function- Gait indep Baseline Function- Work/School Work that requires active lifting, pushing and pulling Baseline Function- Recreation/Hobbies No limitation in any activities that requires overhead movement Current Functional Impairments (Reported) Functional Limitations- ADL's Unable with overhead movement activities Functional Limitations- Mobility/Gait Indeep Functional Limitations- Work/School Light duties recommended Functional Limitations- Recreation/ Unable with overhead Hobbies activities PT-OP-C Subjective Start: 01/23/19 17:02 Freq: Status: Active Protocol: Document 06/21/19 16:31 EA (Rec: 06/21/19 16:36 EA [id number]) OP-PT Subjective Patient Comments Patient Comments Pt reports he will missing next week sessions due to boating for a week; states he will be doing alot of swimming . Patient Reported Progress Improving PT-OP-E Functional Tests Start: 01/23/19 17:02 Freq: Status: Active Protocol: Document 05/24/19 09:34 EA (Rec: 05/24/19 09:47 EA [id number]) Functional Tests Apley's Scratch Test Action 1- Left slight limitation to touch post shoulder Action 1- Right able Action 2- Left T2 Action 2- Right C7 Action 3- Left T4 Action 3- Right L1 PT-OP-F Manual Assessment Start: 01/23/19 17:02 Freq: Status: Active Protocol: Document 01/23/19 17:03 EA (Rec: 01/23/19 17:40 EA [id number]) Manual Assessments Soft Tissue Assessment Soft Tissue Mobility Assessment Tight right shoulder adductors , anterior capsules. Joint Mobility Assessment Joint Mobility Assessment Hypo (Muscle guarding) PT-OP-J Posture/Palpation/Skin Start: 01/23/19 17:02 Freq: Status: Active Protocol: Document 05/24/19 09:34 EA (Rec: 05/24/19 09:47 EA [id number]) Palpation Assessment Location One Palpation Location right shoulder: anterior/post/ lateral Palpation Findings Soft Tissue Tightness Tenderness Palpation Details grade 3/4 tender over SS/IS tendon, subacromial joint, and right scapular muscle Skin Assessment Other Assessments Skin Assessment Comments No signs of active infection at surgical scar PT-OP-K Range of Motion Start: 01/23/19 17:02 Freq: Status: Active Protocol: Document 05/24/19 09:34 EA (Rec: 05/24/19 09:47 EA [id number]) Shoulder Goniometric Range of Motion Shoulder Right Active Testing Position sitting and supine Flexion 130 Extension 60 Abduction 110 External Rotation at 90 degrees 70 Abduction Internal Rotation 45 PT-OP-L Special Tests Start: 01/23/19 17:02 Freq: Status: Active Protocol: Document 01/23/19 17:03 EA (Rec: 01/23/19 17:40 EA [id number]) Special Tests Shoulder Special Tests Lift-Off Rotator Cuff Test Results + Belly Press Test Results + Drop Arm Rotator Cuff Test Results - Empty Can Test Results + PT-OP-M Strength Start: 01/23/19 17:02 Freq: Status: Active Protocol: Document 05/24/19 09:34 EA (Rec: 05/24/19 09:47 EA [id number]) Shoulder Strength Shoulder Manual Muscle Testing Right Flexion 3+ Fair+ Extension 4- Good- Abduction (C5) 3+ Fair+ Adduction 4- Good- External Rotation 3+ Fair+ Internal Rotation 3+ Fair+ Horizontal Abduction 4- Good- Horizontal Adduction 4- Good- Left Reason Not Measured WFL PT-OP-Q Treatments Start: 01/23/19 17:02 Freq: Status: Active Protocol: Document 06/21/19 16:31 EA (Rec: 06/21/19 16:36 EA [id number]) Gym Equipment Cable Column (Body Solid) Rows Details low row: wide and close Resistance 30# Reps/Time x 15 reps x 2 Lat Pull Down Details Wide and close Resistance 30# Reps/Time x 15 reps x 2 Therapeutic Exercises Supine Exercises 2 Supine Exercise Name T-bar press Resistance 10 lbs Reps/Minutes x 15 reps x 2 1 Supine Exercise Name T-bars flexion Resistance 4 lbs Reps/Minutes x15 reps x 2 Sitting Exercises 2 Sitting Exercise Name DB side raises 0-90 deg Resistance 3# Reps/Minutes x 12 reps x 2 1 Sitting Exercise Name shoulder press Side bilateral Resistance 3# Reps/Minutes 15 reps Standing Exercises 6 Standing Exercise Name DB curl Equipment Used 5-7lbs Reps/Minutes x 15 reps 5 Standing Exercise Name inclined push up Reps/Minutes x 10 reps x2 4 Standing Exercise Name Shoulder ext and row Resistance Lv 2-4 Reps/Minutes x 15 reps x 2 3 Standing Exercise Name ER/IR Resistance Lv 2 Reps/Minutes x 10 reps x 2 2 Standing Exercise Name T-bar front raises Resistance 2 lbs Reps/Minutes 12 reps x 2 PT-OP-R Modalities Start: 01/23/19 17:02 Freq: Status: Active Protocol: Document 06/21/19 16:31 EA (Rec: 06/21/19 16:36 EA [id number]) Hot Pack/Cold Pack Treatment Cold Pack Location right shoulder Patient Position Hooklying Treatment Duration (minutes) 10 Patient Tolerance Good PT-OP-T Assessment and Plan Start: 01/23/19 17:02 Freq: Status: Active Protocol: Document 06/21/19 16:31 EA (Rec: 06/21/19 16:36 EA [id number]) Physical Therapy Assessment Assessment Summary Assessment Patient is showing good improvement as to strength and ROM. Discomfort is minimal at this time. Physical Therapy Plan Next Visit Focus/Plan Next Note Type Treatment Note Next Visit Plan Functional exercises
--- NOTE | 2019-07-05 12:18 | PT.OTN ---
Current Diagnoses Strain of unspecified muscle, fascia and tendon at shoulder and upper arm level, right arm, initial encounter (07/05/19) Physical Therapy Treatment Note PT-OP-A Visit Information Start: 01/23/19 17:02 Freq: Status: Active Protocol: Document 07/05/19 08:10 EA (Rec: 07/05/19 08:16 EA [id number]) Out-Patient Physical Therapy Visit Information Visit Information Visit Type Treatment Note Visit Start Time 07:30 Visit Stop Time 08:15 Total Visit Minutes 48 Visit Number 16 PT-OP-B Current Condition Start: 01/23/19 17:02 Freq: Status: Active Protocol: Document 05/24/19 09:34 EA (Rec: 05/24/19 09:47 EA [id number]) Current Condition History of Current Condition Onset Date Addendum: s/p R shoulder arthroscopic decompression 05/01 Current Complaints Right shoulder elevation difficulty due to pain and weakness History of Current Condition ADDENDUM05/24/19: Patient reports R shoulder a rthroscopic surgery on May [id number] with light activities allowed to left arm. Patient reports present condition started 12/14/18 while lifting box of powder with 50 lbs weight to transfer to mixer; he states that popped sound felt accompanied with pain and numbness to right shoulder and arm. Patient reports incident report filed and work for three more days. Pt mentioned pain and weakness did not resolved and prompted him to see a doctor which given pain meds and ordered X-ray and MRI . Prior Treatments and Tests MRI: reveals partial tear to right SS Future Testing and Treatments Planned None identified Prior Functional Status Baseline Function- ADL's Independent Baseline Function- Mobility Independent Baseline Function- Gait indep Baseline Function- Work/School Work that requires active lifting, pushing and pulling Baseline Function- Recreation/Hobbies No limitation in any activities that requires overhead movement Current Functional Impairments (Reported) Functional Limitations- ADL's Unable with overhead movement activities Functional Limitations- Mobility/Gait Indeep Functional Limitations- Work/School Light duties recommended Functional Limitations- Recreation/ Unable with overhead Hobbies activities PT-OP-C Subjective Start: 01/23/19 17:02 Freq: Status: Active Protocol: Document 07/05/19 08:10 EA (Rec: 07/05/19 08:16 EA [id number]) OP-PT Subjective Patient Comments Patient Comments Pt reports 10 days boat vacation went well; stated functional shoulder with minimal strength deficits and pain at rest most of the time bothers him. He reports his doctor don't know why pain still persisting. 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 He feels he is improving a lot since. PT-OP-E Functional Tests Start: 01/23/19 17:02 Freq: Status: Active Protocol: Document 05/24/19 09:34 EA (Rec: 05/24/19 09:47 EA [id number]) Functional Tests Apley's Scratch Test Action 1- Left slight limitation to touch post shoulder Action 1- Right able Action 2- Left T2 Action 2- Right C7 Action 3- Left T4 Action 3- Right L1 PT-OP-F Manual Assessment Start: 01/23/19 17:02 Freq: Status: Active Protocol: Document 01/23/19 17:03 EA (Rec: 01/23/19 17:40 EA [id number]) Manual Assessments Soft Tissue Assessment Soft Tissue Mobility Assessment Tight right shoulder adductors , anterior capsules. Joint Mobility Assessment Joint Mobility Assessment Hypo (Muscle guarding) PT-OP-J Posture/Palpation/Skin Start: 01/23/19 17:02 Freq: Status: Active Protocol: Document 05/24/19 09:34 EA (Rec: 05/24/19 09:47 EA [id number]) Palpation Assessment Location One Palpation Location right shoulder: anterior/post/ lateral Palpation Findings Soft Tissue Tightness Tenderness Palpation Details grade 3/4 tender over SS/IS tendon, subacromial joint, and right scapular muscle Skin Assessment Other Assessments Skin Assessment Comments No signs of active infection at surgical scar PT-OP-K Range of Motion Start: 01/23/19 17:02 Freq: Status: Active Protocol: Document 05/24/19 09:34 EA (Rec: 05/24/19 09:47 EA [id number]) Shoulder Goniometric Range of Motion Shoulder Right Active Testing Position sitting and supine Flexion 130 Extension 60 Abduction 110 External Rotation at 90 degrees 70 Abduction Internal Rotation 45 PT-OP-L Special Tests Start: 01/23/19 17:02 Freq: Status: Active Protocol: Document 01/23/19 17:03 EA (Rec: 01/23/19 17:40 EA [id number]) Special Tests Shoulder Special Tests Lift-Off Rotator Cuff Test Results + Belly Press Test Results + Drop Arm Rotator Cuff Test Results - Empty Can Test Results + PT-OP-M Strength Start: 01/23/19 17:02 Freq: Status: Active Protocol: Document 05/24/19 09:34 EA (Rec: 05/24/19 09:47 EA [id number]) Shoulder Strength Shoulder Manual Muscle Testing Right Flexion 3+ Fair+ Extension 4- Good- Abduction (C5) 3+ Fair+ Adduction 4- Good- External Rotation 3+ Fair+ Internal Rotation 3+ Fair+ Horizontal Abduction 4- Good- Horizontal Adduction 4- Good- Left Reason Not Measured WFL PT-OP-Q Treatments Start: 01/23/19 17:02 Freq: Status: Active Protocol: Document 07/05/19 08:50 EA (Rec: 07/05/19 08:57 EA [id number]) Gym Equipment Cable Column (Body Solid) Rows Details low row: wide and close Resistance 30# Reps/Time x 15 reps x 2 Lat Pull Down Details Wide and close Resistance 30# Reps/Time x 15 reps x 2 Therapeutic Exercises Supine Exercises 4 Supine Exercise Name Horiz ABD Resistance 3# Reps/Minutes x 15 reps x2 2 Supine Exercise Name T-bar press Resistance 10 lbs Reps/Minutes x 15 reps x 2 Sitting Exercises 2 Sitting Exercise Name DB side raises 0-90 deg Resistance 3# Reps/Minutes x 12 reps x 2 1 Sitting Exercise Name shoulder press Side bilateral Resistance 3# Reps/Minutes 15 reps Standing Exercises 6 Standing Exercise Name DB curl Equipment Used 5-7lbs Reps/Minutes x 15 reps 5 Standing Exercise Name inclined push up Reps/Minutes x 10 reps x2 4 Standing Exercise Name Shoulder ext and row Resistance Lv 2-4 Reps/Minutes x 15 reps x 2 3 Standing Exercise Name ER/IR Resistance Lv 2 Reps/Minutes x 10 reps x 2 2 Standing Exercise Name T-bar front raises Resistance 2 lbs Reps/Minutes 12 reps x 2 Other Exercises 1 Other Exercise Name Two hand chopping motion Side bilateral Reps/Minutes x 10 reps x 2 sets Comments Trunk rotation and min squatting Therapeutic Activity Therapeutic Activity 2 Name Floor to waist box lift Reps/Minutes 20# x 10 reps Comments body mechanics 1 Name Basket ball chest pass, Foot ball throw Comments x 5 mins Manual Therapy Treatment Soft Tissue Mobilization STM Body Location right anterior shoulder Mobilization Type Cross-Friction Myofascial Release Trigger Point Release Intensity/Depth Moderate Comments Home pain management PT-OP-R Modalities Start: 01/23/19 17:02 Freq: Status: Active Protocol: Document 07/05/19 08:50 EA (Rec: 07/05/19 08:57 EA [id number]) Hot Pack/Cold Pack Treatment Cold Pack Location right shoulder Patient Position Hooklying Treatment Duration (minutes) 10 Patient Tolerance Good PT-OP-T Assessment and Plan Start: 01/23/19 17:02 Freq: Status: Active Protocol: Document 07/05/19 08:50 EA (Rec: 07/05/19 08:57 EA [id number]) Physical Therapy Assessment Assessment Summary Assessment Patient tolerated treatment exercises with no signs of discomfort and no signs of shoulder substitution. Tenderness still noted at anterior shoulder and lessen down after manual PT. Advised patient to perform self-scar massage at home. Overall he is progressing functionally. Physical Therapy Plan Next Visit Focus/Plan Next Note Type Treatment Note Next Visit Plan Functional exercises
--- NOTE | 2019-07-09 12:09 | PT.OTN ---
Current Diagnoses Strain of unspecified muscle, fascia and tendon at shoulder and upper arm level, right arm, initial encounter (07/09/19) Physical Therapy Treatment Note PT-OP-A Visit Information Start: 01/23/19 17:02 Freq: Status: Active Protocol: Document 07/09/19 08:06 EA (Rec: 07/09/19 08:16 EA [id number]) Out-Patient Physical Therapy Visit Information Visit Information Visit Type Treatment Note Visit Start Time 07:30 Visit Stop Time 08:08 Total Visit Minutes 38 Visit Number 16 PT-OP-B Current Condition Start: 01/23/19 17:02 Freq: Status: Active Protocol: Document 05/24/19 09:34 EA (Rec: 05/24/19 09:47 EA [id number]) Current Condition History of Current Condition Onset Date Addendum: s/p R shoulder arthroscopic decompression 05/01 Current Complaints Right shoulder elevation difficulty due to pain and weakness History of Current Condition ADDENDUM05/24/19: Patient reports R shoulder a rthroscopic surgery on May [id number] with light activities allowed to left arm. Patient reports present condition started 12/14/18 while lifting box of powder with 50 lbs weight to transfer to mixer; he states that popped sound felt accompanied with pain and numbness to right shoulder and arm. Patient reports incident report filed and work for three more days. Pt mentioned pain and weakness did not resolved and prompted him to see a doctor which given pain meds and ordered X-ray and MRI . Prior Treatments and Tests MRI: reveals partial tear to right SS Future Testing and Treatments Planned None identified Prior Functional Status Baseline Function- ADL's Independent Baseline Function- Mobility Independent Baseline Function- Gait indep Baseline Function- Work/School Work that requires active lifting, pushing and pulling Baseline Function- Recreation/Hobbies No limitation in any activities that requires overhead movement Current Functional Impairments (Reported) Functional Limitations- ADL's Unable with overhead movement activities Functional Limitations- Mobility/Gait Indeep Functional Limitations- Work/School Light duties recommended Functional Limitations- Recreation/ Unable with overhead Hobbies activities PT-OP-C Subjective Start: 01/23/19 17:02 Freq: Status: Active Protocol: Document 07/09/19 08:06 EA (Rec: 07/09/19 08:16 EA [id number]) OP-PT Subjective Patient Comments Patient Comments My range of motion and strength is more than before my injury; stats pain bothrs him most. He reports he does not want to get back to previous work due to work ergonomics that he scared might his knees, low back and shoulder again. Patient Reported Progress Improving PT-OP-E Functional Tests Start: 01/23/19 17:02 Freq: Status: Active Protocol: Document 05/24/19 09:34 EA (Rec: 05/24/19 09:47 EA [id number]) Functional Tests Apley's Scratch Test Action 1- Left slight limitation to touch post shoulder Action 1- Right able Action 2- Left T2 Action 2- Right C7 Action 3- Left T4 Action 3- Right L1 PT-OP-F Manual Assessment Start: 01/23/19 17:02 Freq: Status: Active Protocol: Document 01/23/19 17:03 EA (Rec: 01/23/19 17:40 EA [id number]) Manual Assessments Soft Tissue Assessment Soft Tissue Mobility Assessment Tight right shoulder adductors , anterior capsules. Joint Mobility Assessment Joint Mobility Assessment Hypo (Muscle guarding) PT-OP-J Posture/Palpation/Skin Start: 01/23/19 17:02 Freq: Status: Active Protocol: Document 05/24/19 09:34 EA (Rec: 05/24/19 09:47 EA [id number]) Palpation Assessment Location One Palpation Location right shoulder: anterior/post/ lateral Palpation Findings Soft Tissue Tightness Tenderness Palpation Details grade 3/4 tender over SS/IS tendon, subacromial joint, and right scapular muscle Skin Assessment Other Assessments Skin Assessment Comments No signs of active infection at surgical scar PT-OP-K Range of Motion Start: 01/23/19 17:02 Freq: Status: Active Protocol: Document 05/24/19 09:34 EA (Rec: 05/24/19 09:47 EA [id number]) Shoulder Goniometric Range of Motion Shoulder Right Active Testing Position sitting and supine Flexion 130 Extension 60 Abduction 110 External Rotation at 90 degrees 70 Abduction Internal Rotation 45 PT-OP-L Special Tests Start: 01/23/19 17:02 Freq: Status: Active Protocol: Document 01/23/19 17:03 EA (Rec: 01/23/19 17:40 EA [id number]) Special Tests Shoulder Special Tests Lift-Off Rotator Cuff Test Results + Belly Press Test Results + Drop Arm Rotator Cuff Test Results - Empty Can Test Results + PT-OP-M Strength Start: 01/23/19 17:02 Freq: Status: Active Protocol: Document 05/24/19 09:34 EA (Rec: 05/24/19 09:47 EA [id number]) Shoulder Strength Shoulder Manual Muscle Testing Right Flexion 3+ Fair+ Extension 4- Good- Abduction (C5) 3+ Fair+ Adduction 4- Good- External Rotation 3+ Fair+ Internal Rotation 3+ Fair+ Horizontal Abduction 4- Good- Horizontal Adduction 4- Good- Left Reason Not Measured WFL PT-OP-Q Treatments Start: 01/23/19 17:02 Freq: Status: Active Protocol: Document 07/09/19 08:06 EA (Rec: 07/09/19 08:16 EA [id number]) Cardio Equipment Upper Body Ergometer (UBE) Duration (Minutes) 7 RPM 30 Height 6 Other forward/backward Gym Equipment Cable Column (Body Solid) Other- 1 Details standing low row Resistance 30-40 Reps/Time x15 reps x2 Rows Details low row: wide and close Resistance 30-40# Reps/Time x 15 reps x 2 Lat Pull Down Details Wide and close Resistance 30-40# Reps/Time x 15 reps x 2 Therapeutic Exercises Supine Exercises 4 Supine Exercise Name Horiz ABD Resistance 3# Reps/Minutes x 15 reps x2 Prone Exercises 2 Prone Exercise Name incled shoulder and elbow push up Reps/Minutes x 6 reps x 2 sets Standing Exercises 6 Standing Exercise Name DB curl Equipment Used 5-7lbs Reps/Minutes x 15 reps 4 Standing Exercise Name Shoulder ext and row Resistance Lv 2-4 Reps/Minutes x 15 reps x 2 3 Standing Exercise Name ER/IR Resistance Lv 2-3 Reps/Minutes x 10 reps x 2 2 Standing Exercise Name T-bar front raises Resistance 2-3 lbs Reps/Minutes 12 reps x 2 Other Exercises 2 Other Exercise Name Body blade: coordination stab exercises: low , mid, high Reps/Minutes x 30 secs each x 2 sets 1 Other Exercise Name Two hand chopping motion Side bilateral Reps/Minutes x 10 reps x 2 sets Comments Trunk rotation and min squatting Therapeutic Activity Therapeutic Activity 2 Name Floor to knee box lift Reps/Minutes 30# x 10 reps Comments body mechanics 1 Name Basket ball chest pass, Foot ball throw Comments x 5 mins PT-OP-R Modalities Start: 01/23/19 17:02 Freq: Status: Active Protocol: Document 07/05/19 08:50 EA (Rec: 07/05/19 08:57 EA [id number]) Hot Pack/Cold Pack Treatment Cold Pack Location right shoulder Patient Position Hooklying Treatment Duration (minutes) 10 Patient Tolerance Good PT-OP-T Assessment and Plan Start: 01/23/19 17:02 Freq: Status: Active Protocol: Document 07/09/19 08:06 EA (Rec: 07/09/19 08:16 EA [id number]) Physical Therapy Assessment Assessment Summary Assessment Pt continued to show functional exercises improvement. Slight discomfort only noted with throwing motion. Patient continue to progress. Physical Therapy Plan Next Visit Focus/Plan Next Note Type Treatment Note Next Visit Plan Functional exercises
--- NOTE | 2019-07-12 16:53 | PT.OTN ---
Current Diagnoses Strain of unspecified muscle, fascia and tendon at shoulder and upper arm level, right arm, initial encounter (07/12/19) Physical Therapy Treatment Note PT-OP-A Visit Information Start: 01/23/19 17:02 Freq: Status: Active Protocol: Document 07/12/19 07:33 EA (Rec: 07/12/19 07:36 EA [id number]) Out-Patient Physical Therapy Visit Information Visit Information Visit Type Treatment Note Visit Start Time 07:30 Visit Stop Time 08:08 Total Visit Minutes 38 Visit Number 18 PT-OP-B Current Condition Start: 01/23/19 17:02 Freq: Status: Active Protocol: Document 05/24/19 09:34 EA (Rec: 05/24/19 09:47 EA [id number]) Current Condition History of Current Condition Onset Date Addendum: s/p R shoulder arthroscopic decompression 05/01 Current Complaints Right shoulder elevation difficulty due to pain and weakness History of Current Condition ADDENDUM05/24/19: Patient reports R shoulder a rthroscopic surgery on May 012017 with light activities allowed to left arm. Patient reports present condition started 12/14/18 while lifting box of powder with 50 lbs weight to transfer to mixer; he states that popped sound felt accompanied with pain and numbness to right shoulder and arm. Patient reports incident report filed and work for three more days. Pt mentioned pain and weakness did not resolved and prompted him to see a doctor which given pain meds and ordered X-ray and MRI . Prior Treatments and Tests MRI: reveals partial tear to right SS Future Testing and Treatments Planned None identified Prior Functional Status Baseline Function- ADL's Independent Baseline Function- Mobility Independent Baseline Function- Gait indep Baseline Function- Work/School Work that requires active lifting, pushing and pulling Baseline Function- Recreation/Hobbies No limitation in any activities that requires overhead movement Current Functional Impairments (Reported) Functional Limitations- ADL's Unable with overhead movement activities Functional Limitations- Mobility/Gait Indeep Functional Limitations- Work/School Light duties recommended Functional Limitations- Recreation/ Unable with overhead Hobbies activities PT-OP-C Subjective Start: 01/23/19 17:02 Freq: Status: Active Protocol: Document 07/12/19 07:33 EA (Rec: 07/12/19 07:36 EA [id number]) OP-PT Subjective Patient Comments Patient Comments Pt reports he will be seeing his doctor a week from next week. Patient also reports that he wants to get back to his work so he could support his two children; states not getting enough from [employer]. He reports his strength and ROM is improved but not the pain. He also reported that he has been doing most of the house chores at home as his partner is working. Patient Reported Progress Improving PT-OP-E Functional Tests Start: 01/23/19 17:02 Freq: Status: Active Protocol: Document 05/24/19 09:34 EA (Rec: 05/24/19 09:47 EA [id number]) Functional Tests Apley's Scratch Test Action 1- Left slight limitation to touch post shoulder Action 1- Right able Action 2- Left T2 Action 2- Right C7 Action 3- Left T4 Action 3- Right L1 PT-OP-F Manual Assessment Start: 01/23/19 17:02 Freq: Status: Active Protocol: Document 01/23/19 17:03 EA (Rec: 01/23/19 17:40 EA [id number]) Manual Assessments Soft Tissue Assessment Soft Tissue Mobility Assessment Tight right shoulder adductors , anterior capsules. Joint Mobility Assessment Joint Mobility Assessment Hypo (Muscle guarding) PT-OP-J Posture/Palpation/Skin Start: 01/23/19 17:02 Freq: Status: Active Protocol: Document 05/24/19 09:34 EA (Rec: 05/24/19 09:47 EA [id number]) Palpation Assessment Location One Palpation Location right shoulder: anterior/post/ lateral Palpation Findings Soft Tissue Tightness Tenderness Palpation Details grade 3/4 tender over SS/IS tendon, subacromial joint, and right scapular muscle Skin Assessment Other Assessments Skin Assessment Comments No signs of active infection at surgical scar PT-OP-K Range of Motion Start: 01/23/19 17:02 Freq: Status: Active Protocol: Document 05/24/19 09:34 EA (Rec: 05/24/19 09:47 EA [id number]) Shoulder Goniometric Range of Motion Shoulder Right Active Testing Position sitting and supine Flexion 130 Extension 60 Abduction 110 External Rotation at 90 degrees 70 Abduction Internal Rotation 45 PT-OP-L Special Tests Start: 01/23/19 17:02 Freq: Status: Active Protocol: Document 01/23/19 17:03 EA (Rec: 01/23/19 17:40 EA [id number]) Special Tests Shoulder Special Tests Lift-Off Rotator Cuff Test Results + Belly Press Test Results + Drop Arm Rotator Cuff Test Results - Empty Can Test Results + PT-OP-M Strength Start: 01/23/19 17:02 Freq: Status: Active Protocol: Document 05/24/19 09:34 EA (Rec: 05/24/19 09:47 EA [id number]) Shoulder Strength Shoulder Manual Muscle Testing Right Flexion 3+ Fair+ Extension 4- Good- Abduction (C5) 3+ Fair+ Adduction 4- Good- External Rotation 3+ Fair+ Internal Rotation 3+ Fair+ Horizontal Abduction 4- Good- Horizontal Adduction 4- Good- Left Reason Not Measured WFL PT-OP-Q Treatments Start: 01/23/19 17:02 Freq: Status: Active Protocol: Document 07/12/19 07:33 EA (Rec: 07/12/19 07:36 EA [id number]) Cardio Equipment Upper Body Ergometer (UBE) Duration (Minutes) 7 RPM 30 Height 6 Other forward/backward warm up Gym Equipment Cable Column (Body Solid) Other- 1 Details standing low row Resistance 40-50 Reps/Time x15 reps x2 Rows Details low row: wide and close Resistance 40# Reps/Time x 15 reps x 2 Lat Pull Down Details Wide and close Resistance 40-50# Reps/Time x 15 reps x 2 Therapeutic Exercises Prone Exercises 2 Prone Exercise Name shoulder push up Reps/Minutes 8 reps Comments pain reproduced at 7 reps Sitting Exercises 2 Sitting Exercise Name DB side raises 0-90 deg Resistance 3# Reps/Minutes x 15 reps x 1 Comments pain reproduced at 4 lbs at 12 reps 1 Sitting Exercise Name shoulder press Side bilateral Resistance 3# Reps/Minutes 15 reps Standing Exercises 4 Standing Exercise Name Shoulder ext and row Resistance Lv 2-3 Reps/Minutes x 15 reps x 2 3 Standing Exercise Name ER/IR Resistance Lv 2-3 Reps/Minutes x 10 reps x 2 2 Standing Exercise Name T-bar front raises Resistance 2-3 lbs Reps/Minutes 12 reps x 2 Other Exercises 1 Other Exercise Name Two hand chopping motion Side bilateral Resistance M-ball 5.5 lbs Reps/Minutes x 10 reps x 2 sets Comments Trunk rotation and min squatting PT-OP-R Modalities Start: 01/23/19 17:02 Freq: Status: Active Protocol: Document 07/12/19 08:15 EA (Rec: 07/12/19 08:16 EA [id number]) Electric Stimulation Electric Stimulation Interferential Current (IFC) Body Location right SS/ant deltoid/traps Duration (Minutes) 15 Intensity 12 Contraction Type Normal Combined With Heat/Cold Cold Pack PT-OP-T Assessment and Plan Start: 01/23/19 17:02 Freq: Status: Active Protocol: Document 07/12/19 08:55 EA (Rec: 07/12/19 09:01 EA [id number]) Physical Therapy Assessment Assessment Summary Assessment Patient performed exercises well at except with side raises which was difficult due to pain on the 2nd set. Tests performed with positive to empty can's but negative with dropped arm tests. ROM reveals FULL with shoulder ABD /FLexion, ER, with slight limitation to IR. ICE and IFC were given after and felt better; encouraged to use ICE pack 2 x /day.
--- NOTE | 2019-07-25 13:37 | PT-OP ANOTE ---
I spoke to patient today by phone and reports he cancelled his doctor's follow up due to family emergency; states he would call for PT continuation.
--- NOTE | 2019-08-02 12:51 | PT.OTN ---
Current Diagnoses Strain of unspecified muscle, fascia and tendon at shoulder and upper arm level, right arm, initial encounter (08/02/19) Physical Therapy Treatment Note PT-OP-A Visit Information Start: 01/23/19 17:02 Freq: Status: Active Protocol: Document 08/02/19 12:00 DCW (Rec: 08/02/19 12:09 DCW [id number]) Out-Patient Physical Therapy Visit Information Visit Information Visit Type Treatment Note Visit Start Time 12:00 Visit Stop Time 12:45 Total Visit Minutes 45 Visit Number 19 PT-OP-B Current Condition Start: 01/23/19 17:02 Freq: Status: Active Protocol: Document 05/24/19 09:34 EA (Rec: 05/24/19 09:47 EA [id number]) Current Condition History of Current Condition Onset Date Addendum: s/p R shoulder arthroscopic decompression 05/01 Current Complaints Right shoulder elevation difficulty due to pain and weakness History of Current Condition ADDENDUM05/24/19: Patient reports R shoulder a rthroscopic surgery on May [id number] with light activities allowed to left arm. Patient reports present condition started 12/14/18 while lifting box of powder with 50 lbs weight to transfer to mixer; he states that popped sound felt accompanied with pain and numbness to right shoulder and arm. Patient reports incident report filed and work for three more days. Pt mentioned pain and weakness did not resolved and prompted him to see a doctor which given pain meds and ordered X-ray and MRI . Prior Treatments and Tests MRI: reveals partial tear to right SS Future Testing and Treatments Planned None identified Prior Functional Status Baseline Function- ADL's Independent Baseline Function- Mobility Independent Baseline Function- Gait indep Baseline Function- Work/School Work that requires active lifting, pushing and pulling Baseline Function- Recreation/Hobbies No limitation in any activities that requires overhead movement Current Functional Impairments (Reported) Functional Limitations- ADL's Unable with overhead movement activities Functional Limitations- Mobility/Gait Indeep Functional Limitations- Work/School Light duties recommended Functional Limitations- Recreation/ Unable with overhead Hobbies activities PT-OP-C Subjective Start: 01/23/19 17:02 Freq: Status: Active Protocol: Document 08/02/19 12:00 DCW (Rec: 08/02/19 12:09 DCW [id number]) OP-PT Subjective Patient Comments Patient Comments Pt reports he felt like he had been improving until his last visit, when he was performing shoulder abduction exercises and felt a pop. Pt notes that he has been experiencing an increase in pain since that time. PT-OP-E Functional Tests Start: 01/23/19 17:02 Freq: Status: Active Protocol: Document 08/02/19 12:00 DCW (Rec: 08/02/19 12:20 DCW [id number]) Functional Tests Apley's Scratch Test Action 1- Left Posterior opp shoulder Action 1- Right Posterior opp shoulder Action 2- Left T3 Action 2- Right T3 Action 3- Left T4 Action 3- Right T8 PT-OP-F Manual Assessment Start: 01/23/19 17:02 Freq: Status: Active Protocol: Document 01/23/19 17:03 EA (Rec: 01/23/19 17:40 EA [id number]) Manual Assessments Soft Tissue Assessment Soft Tissue Mobility Assessment Tight right shoulder adductors , anterior capsules. Joint Mobility Assessment Joint Mobility Assessment Hypo (Muscle guarding) PT-OP-J Posture/Palpation/Skin Start: 01/23/19 17:02 Freq: Status: Active Protocol: Document 08/02/19 12:00 DCW (Rec: 08/02/19 12:20 DCW [id number]) Palpation Assessment Location One Palpation Details Tenderness to palpation 1/4 - Complaint of pain over acromion PT-OP-K Range of Motion Start: 01/23/19 17:02 Freq: Status: Active Protocol: Document 08/02/19 12:00 DCW (Rec: 08/02/19 12:20 DCW [id number]) Shoulder Goniometric Range of Motion Shoulder Right Active Testing Position Standing Flexion 170 Extension 60 Abduction 170 External Rotation at 90 degrees 70 Abduction PT-OP-L Special Tests Start: 01/23/19 17:02 Freq: Status: Active Protocol: Document 08/02/19 12:00 DCW (Rec: 08/02/19 12:20 DCW [id number]) Special Tests Shoulder Special Tests Lift-Off Rotator Cuff Test Results Positive Belly Press Test Results Positive Drop Arm Rotator Cuff Test Results Negative Empty Can Test Results Positive PT-OP-M Strength Start: 01/23/19 17:02 Freq: Status: Active Protocol: Document 08/02/19 12:00 DCW (Rec: 08/02/19 12:20 DCW [id number]) Shoulder Strength Shoulder Manual Muscle Testing Right Flexion 4- Good- Extension 4 Good Abduction (C5) 4- Good- Adduction 4 Good External Rotation 4- Good- Internal Rotation 3+ Fair+ Horizontal Abduction 4 Good Horizontal Adduction 4- Good- PT-OP-Q Treatments Start: 01/23/19 17:02 Freq: Status: Active Protocol: Document 08/02/19 12:00 DCW (Rec: 08/02/19 12:48 DCW [id number]) Cardio Equipment Upper Body Ergometer (UBE) Duration (Minutes) 7 RPM 30 Height 6 Other forward/backward warm up Therapeutic Exercises Standing Exercises 6 Standing Exercise Name DB curl 5 Standing Exercise Name Shoulder extension Side bilateral Resistance Lv 4 4 Standing Exercise Name Shoulder row Resistance Lv 3 Reps/Minutes x 15 reps x 2 Other Exercises 1 Other Exercise Name Two hand chopping motion Side bilateral Resistance M-ball 5.5 lbs Reps/Minutes x 10 reps x 2 sets Comments Trunk rotation and min squatting Manual Therapy Treatment Soft Tissue Mobilization STM Body Location right anterior shoulder Mobilization Type Cross-Friction,Myofascial Release,Trigger Point Release Intensity/Depth Moderate Comments Home pain management Joint Mobilizations GH Joint R GH joint Direction inferior Grade II Body Position Sitting PT-OP-R Modalities Start: 01/23/19 17:02 Freq: Status: Active Protocol: Document 07/12/19 08:15 EA (Rec: 07/12/19 08:16 EA [id number]) Electric Stimulation Electric Stimulation Interferential Current (IFC) Body Location right SS/ant deltoid/traps Duration (Minutes) 15 Intensity 12 Contraction Type Normal Combined With Heat/Cold Cold Pack PT-OP-T Assessment and Plan Start: 01/23/19 17:02 Freq: Status: Active Protocol: Document 08/02/19 12:00 DCW (Rec: 08/02/19 12:48 DCW [id number]) Physical Therapy Assessment Impairments Impairments Functional Activities,Pain,ROM ,Soft Tissue Mobility,Strength Goals Four Impairment NO HEP in place Usp Goal (LTG) Patient will perform HEP (Home exercise program) independently LTG Duration Met Three Impairment Impaired shoulder strength Usp Goal (LTG) Patient will increase shoulder ABD/F/ER strength by 1/2 grade for arm functional use. LTG Duration 4 wks Two Impairment Impaired left shoulder ROM School Counsellor Goal (LTG) Patient will increase left shoulder flexion/ABD/ER AROM to functional range to enhance shoulder functional mobility LTG Duration Met One Impairment quick Dash functional UE score of 90 Usp Goal (LTG) Patient will have Quick Dask functional score of < 35 LTG Duration 4 wks Assessment Summary Assessment Pt is still having severe pain with pretty much all movements following the popping he experienced last session. Pt notes that he hasn 't had a good night sleep since November because of pain. PT very frustrated with the fact that he is still not feeling like he has made much progress, after months of therapy and a subacromial decompression. Plan to continue with PT, but wait until after follow-up with ortho on 08/13 to determine any change of plans. Physical Therapy Plan Frequency and Duration Frequency of Treatment 2x/Week Duration of Treatment 8 wks Plan of Care Start Date 08/02/19 Plan of Care End Date 09/27/19 Next Visit Focus/Plan Next Note Type Treatment Note Next Visit Plan Functional exercises
--- NOTE | 2019-08-02 12:51 | PT.OPPOC ---
Current Diagnoses Strain of unspecified muscle, fascia and tendon at shoulder and upper arm level, right arm, initial encounter (08/02/19) Visit Care Team Role Provider Type Gia Zaman PA-C Attending Provider Advanced Lead Cargo Mover Specialty: Medical Address: [address] [place] [address], [id number] Email: [email or web address] Plan Of Care PT-OP-T Assessment and Plan Start: 01/23/19 17:02 Freq: Status: Active Protocol: Document 08/02/19 12:00 DCW (Rec: 08/02/19 12:48 DCW [id number]) Physical Therapy Assessment Impairments Impairments Functional Activities,Pain,ROM ,Soft Tissue Mobility,Strength Goals Four Impairment NO HEP in place Alf Goal (LTG) Patient will perform HEP (Home exercise program) independently LTG Duration Met Three Impairment Impaired shoulder strength Alf Goal (LTG) Patient will increase shoulder ABD/F/ER strength by 1/2 grade for arm functional use. LTG Duration 4 wks Two Impairment Impaired left shoulder ROM Railroad Engineer Goal (LTG) Patient will increase left shoulder flexion/ABD/ER AROM to functional range to enhance shoulder functional mobility LTG Duration Met One Impairment quick Dash functional UE score of 90 Railroad Engineer Goal (LTG) Patient will have Quick Dask functional score of < 35 LTG Duration 4 wks Assessment Summary Assessment Pt is still having severe pain with pretty much all movements following the popping he experienced last session. Pt notes that he hasn 't had a good night sleep since November because of pain. PT very frustrated with the fact that he is still not feeling like he has made much progress, after months of therapy and a subacromial decompression. Plan to continue with PT, but wait until after follow-up with ortho on 08/13 to determine any change of plans. Physical Therapy Plan Frequency and Duration Frequency of Treatment 2x/Week Duration of Treatment 8 wks Plan of Care Start Date 08/02/19 Plan of Care End Date 09/27/19 Next Visit Focus/Plan Next Note Type Treatment Note Next Visit Plan Functional exercises Plan of Care Dates Plan of Care Start Date 08/02/19 Plan of Care End Date 09/27/19 Please Sign and Return: I have reviewed this Plan of Care and certify that the skilled therapy services above are required to meet the patient?s needs. Physician Signature Date Printed Name and Credentials Clinical Instructor Signature Printed Name and Credentials
--- NOTE | 2019-08-02 12:53 | PT.OPPOC ---
Current Diagnoses Strain of unspecified muscle, fascia and tendon at shoulder and upper arm level, right arm, initial encounter (08/02/19) Visit Care Team Role Provider Type Gia Zaman PA-C Attending Provider Advanced Taxi Driver Specialty: Medical Address: [address] [place] [address], [id number] Email: [email or web address] Plan Of Care PT-OP-T Assessment and Plan Start: 01/23/19 17:02 Freq: Status: Active Protocol: Document 08/02/19 12:00 DCW (Rec: 08/02/19 12:48 DCW [id number]) Physical Therapy Assessment Impairments Impairments Functional Activities,Pain,ROM ,Soft Tissue Mobility,Strength Goals Four Impairment NO HEP in place Penitentiary Goal (LTG) Patient will perform HEP (Home exercise program) independently LTG Duration Met Three Impairment Impaired shoulder strength Penitentiary Goal (LTG) Patient will increase shoulder ABD/F/ER strength by 1/2 grade for arm functional use. LTG Duration 4 wks Two Impairment Impaired left shoulder ROM Trimming Cutter Machine Goal (LTG) Patient will increase left shoulder flexion/ABD/ER AROM to functional range to enhance shoulder functional mobility LTG Duration Met One Impairment quick Dash functional UE score of 90 Trimming Cutter Machine Goal (LTG) Patient will have Quick Dask functional score of < 35 LTG Duration 4 wks Assessment Summary Assessment Pt is still having severe pain with pretty much all movements following the popping he experienced last session. Pt notes that he hasn 't had a good night sleep since November because of pain. PT very frustrated with the fact that he is still not feeling like he has made much progress, after months of therapy and a subacromial decompression. Plan to continue with PT, but wait until after follow-up with ortho on 08/13 to determine any change of plans. Physical Therapy Plan Frequency and Duration Frequency of Treatment 2x/Week Duration of Treatment 8 wks Plan of Care Start Date 08/02/19 Plan of Care End Date 09/27/19 Next Visit Focus/Plan Next Note Type Treatment Note Next Visit Plan Functional exercises Plan of Care Dates Plan of Care Start Date 08/02/19 Plan of Care End Date 09/27/19 Please Sign and Return: I have reviewed this Plan of Care and certify that the skilled therapy services above are required to meet the patient?s needs. Physician Signature Date Printed Name and Credentials Clinical Instructor Signature Printed Name and Credentials
--- NOTE | 2019-09-12 12:21 | PT-OP ANOTE ---
Spoke with pt by phone today, reports that he is in the middle of changing Ortho specialists, and will have his first appointment with a new one in the next two week. Will call regarding PT afterward.
--- NOTE | 2019-11-19 17:51 | PT.OPDS ---
Current Diagnoses Strain of unspecified muscle, fascia and tendon at shoulder and upper arm level, right arm, initial encounter (08/02/19) Visit Care Team Role Provider Type Gia Zaman PA-C Attending Provider Advanced Collections Analyst Specialty: Medical Address: [address] [place] [address], [facility] Email: [email or web address] Visit Number Visit Number 19 Discharge Summary PT-OP-B Current Condition Start: 01/23/19 17:02 Freq: Status: Active Protocol: Document 05/24/19 09:34 EA (Rec: 05/24/19 09:47 EA [id number]) Current Condition History of Current Condition Onset Date Addendum: s/p R shoulder arthroscopic decompression 05/01 Current Complaints Right shoulder elevation difficulty due to pain and weakness History of Current Condition ADDENDUM05/24/19: Patient reports R shoulder a rthroscopic surgery on May [id number] with light activities allowed to left arm. Patient reports present condition started 12/14/18 while lifting box of powder with 50 lbs weight to transfer to mixer; he states that popped sound felt accompanied with pain and numbness to right shoulder and arm. Patient reports incident report filed and work for three more days. Pt mentioned pain and weakness did not resolved and prompted him to see a doctor which given pain meds and ordered X-ray and MRI . Prior Treatments and Tests MRI: reveals partial tear to right SS Future Testing and Treatments Planned None identified Prior Functional Status Baseline Function- ADL's Independent Baseline Function- Mobility Independent Baseline Function- Gait indep Baseline Function- Work/School Work that requires active lifting, pushing and pulling Baseline Function- Recreation/Hobbies No limitation in any activities that requires overhead movement Current Functional Impairments (Reported) Functional Limitations- ADL's Unable with overhead movement activities Functional Limitations- Mobility/Gait Indeep Functional Limitations- Work/School Light duties recommended Functional Limitations- Recreation/ Unable with overhead Hobbies activities PT-OP-C Subjective Start: 01/23/19 17:02 Freq: Status: Active Protocol: Document 08/02/19 12:00 DCW (Rec: 08/02/19 12:09 DCW [id number]) OP-PT Subjective Patient Comments Patient Comments Pt reports he felt like he had been improving until his last visit, when he was performing shoulder abduction exercises and felt a pop. Pt notes that he has been experiencing an increase in pain since that time. PT-OP-E Functional Tests Start: 01/23/19 17:02 Freq: Status: Active Protocol: Document 08/02/19 12:00 DCW (Rec: 08/02/19 12:20 DCW [id number]) Functional Tests Apley's Scratch Test Action 1- Left Posterior opp shoulder Action 1- Right Posterior opp shoulder Action 2- Left T3 Action 2- Right T3 Action 3- Left T4 Action 3- Right T8 PT-OP-F Manual Assessment Start: 01/23/19 17:02 Freq: Status: Active Protocol: Document 01/23/19 17:03 EA (Rec: 01/23/19 17:40 EA [id number]) Manual Assessments Soft Tissue Assessment Soft Tissue Mobility Assessment Tight right shoulder adductors , anterior capsules. Joint Mobility Assessment Joint Mobility Assessment Hypo (Muscle guarding) PT-OP-J Posture/Palpation/Skin Start: 01/23/19 17:02 Freq: Status: Active Protocol: Document 08/02/19 12:00 DCW (Rec: 08/02/19 12:20 DCW [id number]) Palpation Assessment Location One Palpation Details Tenderness to palpation 1/4 - Complaint of pain over acromion PT-OP-K Range of Motion Start: 01/23/19 17:02 Freq: Status: Active Protocol: Document 08/02/19 12:00 DCW (Rec: 08/02/19 12:20 DCW [id number]) Shoulder Goniometric Range of Motion Shoulder Right Active Testing Position Standing Flexion 170 Extension 60 Abduction 170 External Rotation at 90 degrees 70 Abduction PT-OP-L Special Tests Start: 01/23/19 17:02 Freq: Status: Active Protocol: Document 08/02/19 12:00 DCW (Rec: 08/02/19 12:20 DCW [id number]) Special Tests Shoulder Special Tests Lift-Off Rotator Cuff Test Results Positive Belly Press Test Results Positive Drop Arm Rotator Cuff Test Results Negative Empty Can Test Results Positive PT-OP-M Strength Start: 01/23/19 17:02 Freq: Status: Active Protocol: Document 08/02/19 12:00 DCW (Rec: 08/02/19 12:20 DCW [id number]) Shoulder Strength Shoulder Manual Muscle Testing Right Flexion 4- Good- Extension 4 Good Abduction (C5) 4- Good- Adduction 4 Good External Rotation 4- Good- Internal Rotation 3+ Fair+ Horizontal Abduction 4 Good Horizontal Adduction 4- Good- PT-OP-T Assessment and Plan Start: 01/23/19 17:02 Freq: Status: Active Protocol: Document 11/19/19 17:50 DCW (Rec: 11/19/19 17:51 DCW [id number]) Physical Therapy Assessment Assessment Summary Assessment Pt has not been seen in three months. Pt has a new referral, and will be returning to therapy in November. Pt will be discharged at this time, and receive a new initial evaluation upon his return. Physical Therapy Plan Discharge Physical Therapy Discharge Reasons No Longer Attending PT
== END 2019-11-26 12:23 ==
LOC: PHYS 12:00
PROVIDERS: Visit Provider Physician Assistant
DX: S46.911A Strain of unspecified muscle, fascia and tendon at shoulder and upper arm level, right arm, initial encounter (principal)
CPT/HCPCS: 97014; 97110; 97140; 97161; 97535; G0283

== ENCOUNTER 2019-09-18 08:32 | Emergency (ER) | payer OTHER, SELFPAY ==
[2019-09-18 09:20] VITALS: PULSE 80; RESP 18; TEMP 36.7; O2SAT 96
[2019-09-18 09:39] VITALS: BP 109/74
--- NOTE | 2019-09-18 09:41 | DI.RAD.S_ITS ---
PROCEDURE: XR SHOULDER RT MIN 2V INDICATIONS: no injury pain TECHNIQUE: 3 views of the shoulder were acquired. COMPARISON: [facility], CR, XR SHOULDER RT MIN 2V, 12/18/2018, 11:42. FINDINGS: Bones: No fractures or dislocations. No suspicious bony lesions. Visualized ribs appear intact. Soft tissues: No suspicious soft tissue calcifications. IMPRESSION: Unremarkable examination. If the patient's pain or other symptoms persist, consider further evaluation with MRI Dictated by: German Martínez M.D. on 09/18/2019 at 10:18 Approved by: German Martínez M.D. on 09/18/2019 at 10:20
--- NOTE | 2019-09-18 10:38 | ED_ITS ---
HPI - Extremity Injury (Upper) General Chief Complaint: Extremity Injury, Upper Stated Complaint: right shoulder problems Time Seen by Provider: 09/18/19 08:38 Source: patient Mode of arrival: Ambulatory Limitations: no limitations History of Present Illness HPI narrative: 23-year-old male daily smoker with history of right shoulder injury presents with a chief complaint of a few days of worsening right shoulder pain. He had a work related injury earlier in the year and a rotator cuff injury. He had an MRI showing a partial supraspinatus tear and was taken to the OR by local orthopedics. He had been doing fine well until a few days ago when he was stretching any felt a pop in his shoulder and now has worsening pain. His pain is worse with motion and improves with rest. He does have episodes of some tingling going down to his hand. He denies any other injury and is otherwise well and free of complaint. Related Data Previous Rx's Medication Instructions Recorded ketorolac 10 mg PO Q6H PRN #14 tab 09/18/19 Allergies Allergy/AdvReac Type Severity Reaction Status Date / Time bacitracin AdvReac Mild Rash Verified 12/18/18 10:55 [From Neosporin ([id number])] neomycin AdvReac Mild Rash Verified 12/18/18 10:55 [From Neosporin ([id number])] polymyxin B AdvReac Mild Rash Verified 12/18/18 10:55 [From Neosporin ([id number])] Review of Systems Constitutional Constitutional: Denies chills, Denies fatigue, Denies fever(s), Denies frequent falls, Denies lethargy and Denies weakness Eyes Eyes: Denies change in vision, Denies eye discharge, Denies irritation and Denies loss of vision ENT Ears, Nose, Mouth, and Throat: Denies change in voice, Denies dizziness, Denies neck pain, Denies sore throat and Denies throat swelling Cardiovascular Cardiovascular: Denies chest pain, Denies irregular heart rhythm, Denies lightheadedness, Denies palpitations, Denies dyspnea, Denies dyspnea on exertion and Denies orthopnea Respiratory Respiratory: Denies cough, Denies dyspnea, Denies dyspnea on exertion and Denies wheezing Gastrointestinal Gastrointestinal: Denies abdominal pain, Denies change in bowel habits, Denies diarrhea, Denies nausea and Denies vomiting Genitourinary Genitourinary: Denies hematuria, Denies flank pain, Denies urinary incontinence and Denies urinary urgency Musculoskeletal Musculoskeletal: Denies back pain, Reports limited range of motion, Denies muscle weakness, Denies neck pain, Denies numbness and Denies tingling Integumentary/Breasts Skin/Breast: Denies pruritus, Denies erythema, Denies rash and Denies wounds Neurologic Neurologic: Denies behavioral changes, Denies confusion, Denies dizziness, Denies frequent falls, Denies loss of vision, Denies numbness, Denies tingling and Denies weakness Psychiatric Psychiatric: Denies anxiety, Denies behavioral changes, Denies confusion, Denies depression, Denies homicidal ideation and Denies suicidal ideation Endocrine Endocrine: Denies fatigue, Denies flushing and Denies palpitations Hematologic/Lymphatic Hematologic/Lymphatic: Denies easy bruising Allergic/Immunologic Allergic/Immunologic: Denies urticaria, Denies throat swelling and Denies wheezing Patient History Medical History Diarrhea (Chronic) Surgical History Hx of cholecystectomy (Chronic) Social History Smoking Status: Current every day smoker Tobacco: How many years used: 10 alcohol intake: never substance use type: does not use alcohol intake frequency: 0-2 drinks per day Substance Use Type: does not use Exam Narrative Exam Narrative: GEN: AOx3 and in mild distress EYES: Pupils are equal, round, and reactive to light and accommodation. Extraoccular muscles are intact bilaterally. There is no subconjunctival hemorrhage or exudate. CHEST: Lungs are clear to auscultation bilaterally and free of wheezes, rales, or rhonchi. Heart rate is regular rhythm, there are no murmurs, clicks, rubs, or gallops. There is no chest wall tenderness. ABD: Abdomen is soft and nontender. There is no guarding or rebound. Bowel sounds are normal in all 4 quadrants. There is no mass or organomegaly. EXT: Full but painful range of motion of right upper extremity. Full strength and sensation. Distal pulses intact, cap refill less than 2 seconds. Tenderness to palpate at the insertion of the biceps tendon, worsening pain with empty can test, suggesting some spit supraspinatus involvement SKIN: Warm, pink, and dry. No erythema or rash Initial Vital Signs Initial Vital Signs: Vital Signs Temperature 98.1 F 09/18/19 09:20 Pulse Rate 80 09/18/19 09:20 Respiratory Rate 18 09/18/19 09:20 Pulse Oximetry 96 09/18/19 09:20 Course Orders Ordered: ED Orders 09/18/19 09:41 XR shoulder RT min 2V Stat Reevaluation(s) Reevaluation #1: Patient has his own splint and will not need another 1. He has contact info for local orthopedics and intends to follow up Vital Signs Vital signs: Vital Signs - 8 hr 09/18/19 09:20 09/18/19 09:39 Temperature 98.1 F Pulse Rate 80 Respiratory Rate 18 Blood Pressure [Left Arm] 109/74 Pulse Oximetry 96 Discharge Plan Departure Patient Disposition: Home Clinical Impression: Right shoulder pain Qualifiers: Chronicity: acute Qualified Code(s): M25.511 - Pain in right shoulder Discharge Date/Time: 09/18/19 11:09 Instructions: DI for Shoulder Sprain Activity Restrictions/Additional Instructions: *You have been diagnosed with [ Right shoulder pain ] *What to do: *Take medications as directed, also wear your sling *Follow up with [facility] in 2-3 days, call for an appointment. Let them know you were seen in the Emergency Department and that we ask that you be seen in follow up. You may need another MRI of your shoulder and they can help you with this if they think it is needed *Return to ER if you should have any new, worsening or concerning symptoms Prescriptions: New ketorolac 10 mg tablet 10 mg PO Q6H PRN (Reason: pain) Qty: 14 RF: 0
== END 2019-09-18 11:09 | disposition home or self-care (01) ==
PROVIDERS: Emergency Provider Emergency Medicine
DX: M25.511 Pain in right shoulder (principal); Y99.0 Civilian activity done for income or pay
CPT/HCPCS: 73030; 99282; 99283

== ENCOUNTER → 2019-10-18 07:25 | Outpatient (CLI) | payer OTHER, SELFPAY ==
--- NOTE | 2019-10-18 | DI.RAD.S_ITS ---
PROCEDURE: FL SHOULDER INJECTION MR/CT RT INDICATIONS: Bursitis of right shoulder TECHNIQUE: The indications, alternatives, benefits, risks, and complications of the procedure were explained to the patient. Written informed consent was obtained and placed in the chart. The shoulder was examined fluoroscopically and a site for needle placement chosen for entry into the glenohumeral joint from an anterior approach. The skin was prepped and draped in a sterile fashion, and 1% lidocaine infiltrated from skin down to joint capsule. A spinal needle was inserted into the glenohumeral joint, and a small amount of iodinated contrast media injected to confirm intra-articular placement of the needle tip. This was followed by approximately 12 mL dilute solution of a gadolinium containing MR contrast agent. The needle was removed and a dressing was applied. The patient was given postprocedural instructions and sent to the MR suite for MR imaging. FINDINGS: A single fluoroscopic spot image demonstrates intra-articular location of injected iodinated contrast. IMPRESSION: Successful fluoroscopically guided administration of dilute Gadolinium solution into the shoulder joint for MR arthrogram. Dictated by: German Martínez M.D. on 10/18/2019 at 9:00 Approved by: German Martínez M.D. on 10/18/2019 at 9:00
--- NOTE | 2019-10-18 | DI.MRI.S_ITS ---
PROCEDURE: MR SHOULDER RT W CON INDICATIONS: Bursitis. Right shoulder pain TECHNIQUE: After the administration of 12 mL of dilute intra-articular Gadolinium contrast, oblique coronal T1 and T2 spin echo with fat saturation, oblique sagittal T1 spin echo with and without fat saturation, oblique sagittal T2 fast spin echo with fat saturation, axial T1 spin echo with fat saturation through the shoulder. COMPARISON: [facility], MR, MR SHOULDER RT WO CON, 12/25/2018, 16:45. [facility], CR, XR SHOULDER RT MIN 2V, 09/18/2019, 9:49. FINDINGS: Image quality: Excellent. Rotator cuff: Bursal surface irregularity of the supraspinatus, and infraspinatus tendons, which could represent low-grade fraying versus postsurgical appearance. No full-thickness tear identified. The teres minor appears intact the subscapularis tendon appears intact. No definite articular sided tear seen. No atrophy of the rotator cuff muscles although mild fatty infiltration of the supraspinatus and infraspinatus muscles Bones and bursae: No bone marrow contusions or fractures. Minimal acromioclavicular joint degeneration. Acromion demonstrates conventional anatomy, without an os acromiale. Mild subacromial-subdeltoid bursitis. Capsule and soft tissues: Labrum intact. Incidental sub-labral foramen. Diminutive appearance of the anterosuperior labrum and thickened cordlike middle glenohumeral ligament suggestive of Daisy complex, anatomic variant. Long head of the biceps tendon intact. The rotator interval appears normal, without fibrosis. Coracohumeral ligament intact. IMPRESSION: Low-grade bursal surface irregularity of the supraspinatus and infraspinatus tendons, potentially postsurgical appearance and/or fraying. No full-thickness tear identified. No articular sided tear seen. Adjacent mild subacromial-subdeltoid bursitis. No labral tear. Dictated by: German Martínez M.D. on 10/18/2019 at 10:18 Approved by: German Martínez M.D. on 10/18/2019 at 10:27
== END ==
PROVIDERS: Visit Provider Orthopaedic Surgery
DX: M75.51 Bursitis of right shoulder (principal); M25.511 Pain in right shoulder
CPT/HCPCS: 23350; 73222; 77002

== ENCOUNTER → 2019-11-01 07:36 | Outpatient (CLI) | payer OTHER, SELFPAY ==
--- NOTE | 2019-11-01 | DI.MRI.S_ITS ---
PROCEDURE: MR CERVICAL SPINE WO CON INDICATIONS: CERVICAL RADICULOPATHY TECHNIQUE: Noncontrast sagittal T1 spin echo and T2 fast spin echo, sagittal STIR, foraminal oblique sagittal T2 fast spin echo, and axial gradient echo or T2 fast spin echo through the cervical spine. COMPARISON: None. FINDINGS: Image quality: Excellent. Alignment and Curvature: There is normal bony alignment. Bone Marrow: Marrow demonstrates normal overall signal. Spinal Cord: Visualized spinal cord has normal size and signal. No cerebellar tonsillar herniation. Paraspinous Soft Tissues: No paravertebral masses. Prevertebral soft tissues are normal in thickness. C2-C3: Normal appearance. C3-C4: Normal disc height and disc signal. Moderate left and severe right neuroforaminal stenosis. C4-C5: Normal disc height and disc signal. Mild right and moderate left neuroforaminal narrowing. C5-C6: Normal disc height and disc signal. Mild left neuroforaminal narrowing. C6-C7: Normal disc height and disc signal. There is subtle hypertrophy of the posterior longitudinal ligament. No significant canal stenosis. No foraminal narrowing. C7-T1: Normal appearance. IMPRESSION: 1. Preservation of disc height and disc signal throughout the cervical spine. 2. Moderate neuroforaminal stenosis on the right at C3-4 and on the left at C4-5. Severe right neuroforaminal narrowing at C3-4. 3. No canal stenosis, cord signal abnormality, or deformity of the cord. Dictated by: Karen Vora M.D. on 11/01/2019 at 8:45 Approved by: Kaern Vora M.D. on 11/01/2019 at 8:48
== END ==
PROVIDERS: Visit Provider Orthopaedic Surgery
DX: M54.12 Radiculopathy, cervical region (principal); M48.02 Spinal stenosis, cervical region
CPT/HCPCS: 72141

== ENCOUNTER 2020-01-30 20:33 | Emergency (ER) | payer OTHER, SELFPAY ==
[2020-01-30 20:35] VITALS: BP 144/73; PULSE 122; RESP 19; TEMP 38.2; O2SAT 100; BMI 35.8
--- NOTE | 2020-01-30 20:44 | ED_ITS ---
HPI - Nausea/Vomiting/Diarrhea General Chief complaint: Nausea/Vomiting/Diarrhea Stated complaint: Vomiting Time Seen by Provider: 01/30/20 20:34 Source: EMS Mode of arrival: EMS Limitations: no limitations History of Present Illness HPI Narrative: 24-year-old male nonsmoker without significant medical history presents by EMS with a chief complaint of multiple episodes of diarrhea today and a few episodes of vomiting 1 of which was reddish in color which he thought might be blood. He denies any significant alcohol history, history of GI bleeding, use of blood thinners. He states that he did not eat anything red but had relatively recently taken some orange cough and cold medicine. He denies any recent travel or exposure to ill persons. He feels fatigued and lightheaded but is not complaining of any abdominal pain or difficulty urinating such as dysuria, frequency or urgency MD complaint: nausea, vomiting and diarrhea Onset (ago): hour(s) Description of Vomiting: food contents and blood-streaked Description of Diarrhea: watery Associated Abdominal Pain: No Relieving factors: none Exacerbating factors: none Associated symptoms: loss of appetite and weakness Related Data Previous Rx's Medication Instructions Recorded ketorolac 10 mg PO Q6H PRN #14 tab 09/18/19 ondansetron 4 mg PO TID-QID PRN #10 tab 01/31/20 Allergies Allergy/AdvReac Type Severity Reaction Status Date / Time bacitracin AdvReac Mild Rash Verified 12/18/18 10:55 [From Neosporin ([id number])] neomycin AdvReac Mild Rash Verified 12/18/18 10:55 [From Neosporin ([id number])] polymyxin B AdvReac Mild Rash Verified 12/18/18 10:55 [From Neosporin ([id number])] Review of Systems Constitutional Constitutional: Denies chills, Denies fatigue, Denies fever(s), Denies frequent falls, Denies lethargy and Reports weakness Eyes Eyes: Denies change in vision, Denies eye discharge, Denies irritation and Denies loss of vision ENT Ears, Nose, Mouth, and Throat: Denies change in voice, Denies dizziness, Denies neck pain, Denies sore throat and Denies throat swelling Cardiovascular Cardiovascular: Denies chest pain, Denies irregular heart rhythm, Denies lightheadedness, Denies palpitations, Denies dyspnea, Denies dyspnea on exertion and Denies orthopnea Respiratory Respiratory: Denies cough, Denies dyspnea, Denies dyspnea on exertion and Denies wheezing Gastrointestinal Gastrointestinal: Denies abdominal pain, Denies change in bowel habits, Reports diarrhea, Denies nausea and Denies vomiting Genitourinary Genitourinary: Denies hematuria, Denies flank pain, Denies urinary incontinence and Denies urinary urgency Musculoskeletal Musculoskeletal: Denies back pain, Denies muscle weakness, Denies neck pain, Denies numbness and Denies tingling Integumentary/Breasts Skin/Breast: Denies pruritus, Denies erythema, Denies rash and Denies wounds Neurologic Neurologic: Denies behavioral changes, Denies confusion, Denies dizziness, Denies frequent falls, Denies loss of vision, Denies numbness, Denies tingling and Reports weakness Psychiatric Psychiatric: Denies anxiety, Denies behavioral changes, Denies confusion, Denies depression, Denies homicidal ideation and Denies suicidal ideation Endocrine Endocrine: Denies fatigue, Denies flushing and Denies palpitations Hematologic/Lymphatic Hematologic/Lymphatic: Denies easy bruising Allergic/Immunologic Allergic/Immunologic: Denies urticaria, Denies throat swelling and Denies wheezing Patient History Medical History Diarrhea (Chronic) Surgical History Hx of cholecystectomy (Chronic) Social History Smoking Status: Current every day smoker Tobacco: How many years used: 10 alcohol intake: never substance use type: does not use Smoking Status: Current every day smoker alcohol intake frequency: 0-2 drinks per day Substance Use Type: does not use Exam Narrative Exam Narrative: GENERAL: [24] year old patient appears stated age. Well- nourished, well-developed patient, in mild distress. HEAD: Atraumatic. Normocephalic. EYES: Pupils equal round and reactive. Extraocular motions intact. No scleral icterus. No injection or drainage. ENT: Nose without bleeding, purulent drainage. Throat without erythema, tonsillar hypertrophy or exudate. Airway patent. NECK: Trachea midline. Non tender CARDIOVASCULAR: Regular rate and rhythm without murmurs, gallops, or rubs. RESPIRATORY: Clear to auscultation. Breath sounds equal bilaterally. No wheezes, rales, or rhonchi. GASTROINTESTINAL: Abdomen soft, non-tender, nondistended. EXTREMITIES: No edema or joint tenderness. BACK: Nontender without deformity or crepitance. No flank tenderness. NEURO: AOx3. SKIN: No rash or erythema of visible areas Initial Vital Signs Initial Vital Signs: Vital Signs Temperature 100.7 F H 01/30/20 20:35 Pulse Rate 122 H 01/30/20 20:35 Respiratory Rate 19 01/30/20 20:35 Blood Pressure 144/73 H 01/30/20 20:35 Pulse Oximetry 100 01/30/20 20:35 Course Course Course Narrative: Patient experiencing tremendous relief after the above-stated therapies. His labs are very reassuring and vital signs have normalized. Upper GI bleed considered but thought less likely given lack of risk and reassuring labs including normal BUN as well as normal repeat hemoglobin. Patient given return precautions and has had his questions answered to his apparent satisfaction. Orders Ordered: ED Orders 01/30/20 20:45 Complete Blood Count AUTO DIFF Stat Comprehensive Metabolic Panel Stat Partial Thromboplastin Time Stat Prothrombin Time INR Stat Type and Screen Stat 01/30/20 22:22 XR chest 1V Stat 01/30/20 22:30 Hemoglobin and Hematocrit Stat Influenza A & B (PCR) Stat Discontinued Medications Sodium Chloride (Normal Saline 0.9%) 1,000 mls @ 150 mls/hr IV CONT JACI Last Infusion: 01/30/20 23:45 Dose: 0 mls/hr Documented by: Admin: 01/30/20 20:51 Dose: 150 mls/hr Documented by: MMCFARL Ondansetron HCl (Zofran) 4 mg IV NOW ONE Stop: 01/30/20 20:37 Last Admin: 01/30/20 20:51 Dose: 4 mg Documented by: MMCFARL Ondansetron HCl (Zofran Odt Prepack) 1 bottle MISC SEEINSTR ONE Stop: 01/30/20 23:49 Last Admin: 01/30/20 23:48 Dose: 1 bottle Documented by: MMCFARL Pantoprazole Sodium (Protonix) 40 mg IV NOW ONE Stop: 01/30/20 20:37 Last Admin: 01/30/20 20:51 Dose: 40 mg Documented by: MMCFARL Vital Signs Vital signs: Vital Signs - 8 hr 01/30/20 20:35 01/30/20 21:26 01/31/20 00:09 Temperature 100.7 F H Pulse Rate 122 H 109 H 94 H Respiratory Rate 19 22 23 Blood Pressure 144/73 H Blood Pressure [Left Arm] 113/59 L 136/65 Pulse Oximetry 100 95 99 01/31/20 00:18 Temperature 99.7 F H Pulse Rate Respiratory Rate Blood Pressure Blood Pressure [Left Arm] Pulse Oximetry MDM - Nausea/Vomiting/Diarrhea Lab Data Result diagrams: 01/30/20 22:30 01/30/20 20:45 Labs: Lab Results 01/30/20 01/30/20 01/30/20 Range/Units 20:45 20:45 20:45 WBC 12.4 H (4.5-11.0) X10^3/uL RBC 5.19 (4.5-5.9) X10^6/uL Hgb 15.3 (13.5-17.5) g/dL Hct 45.2 (41-53) % MCV 87.2 (80-100) fL MCH 29.6 (26-34) PG MCHC 33.9 (30-36) % RDW 13.0 (11.6-14.8) % Plt Count 231 (150-400) X10^3/uL Neut % (Auto) 81.8 H (50-75) % Lymph % (Auto) 9.9 L (25-40) % Briscoe % (Auto) 7.3 (3-14) % Eos % (Auto) 0.6 L (2-4) % Baso % (Auto) 0.4 (0-2) % Neut # (Auto) 72851 H (1429-0323) /uL Lymph # (Auto) 1200 (6568-7321) /uL Briscoe # (Auto) 900 (0-900) /uL Eos # (Auto) 100 (0-450) /uL Baso # (Auto) 0 (0-100) /uL PT 11.6 (10.1-12.7) SECONDS INR 1.0 (0.9-1.3) APTT 27 (26.4-36.2) SECONDS Sodium 145 (137-145) mmol/L Potassium 3.7 (3.4-5.1) mmol/L Chloride 107 (98-107) mmol/L Carbon Dioxide 30 (22-32) mmol/L BUN 15 (9-20) mg/dL Creatinine 1.10 (0.66-1.25) mg/dL Estimated GFR > 60.0 (>60) mL/min BUN/Creatinine Ratio 13.6 (6-22) Glucose 105 H (70-100) mg/dL Calcium 9.8 (8.4-10.2) mg/dL Total Bilirubin 0.4 (0.2-1.3) mg/dL AST 31 (17-59) IU/L ALT 35 (<50) IU/L Alkaline Phosphatase 100 (38-126) U/L Total Protein 7.7 (6.3-8.2) g/dL Albumin 4.5 (3.5-5.0) g/dL Globulin 3.2 (1.7-4.1) g/dL Albumin/Globulin Ratio 1.4 (1.0-2.8) Influenza A (RT-PCR) (NEGATIVE) Influenza B (RT-PCR) (NEGATIVE) Blood Type Antibody Screen 01/30/20 01/30/20 01/30/20 Range/Units 20:45 22:30 22:30 WBC (4.5-11.0) X10^3/uL RBC (4.5-5.9) X10^6/uL Hgb 15.2 (13.5-17.5) g/dL Hct 44.9 (41-53) % MCV (80-100) fL MCH (26-34) PG MCHC (30-36) % RDW (11.6-14.8) % Plt Count (150-400) X10^3/uL Neut % (Auto) (50-75) % Lymph % (Auto) (25-40) % Briscoe % (Auto) (3-14) % Eos % (Auto) (2-4) % Baso % (Auto) (0-2) % Neut # (Auto) (6401-0068) /uL Lymph # (Auto) (1222-1565) /uL Briscoe # (Auto) (0-900) /uL Eos # (Auto) (0-450) /uL Baso # (Auto) (0-100) /uL PT (10.1-12.7) SECONDS INR (0.9-1.3) APTT (26.4-36.2) SECONDS Sodium (137-145) mmol/L Potassium (3.4-5.1) mmol/L Chloride (98-107) mmol/L Carbon Dioxide (22-32) mmol/L BUN (9-20) mg/dL Creatinine (0.66-1.25) mg/dL Estimated GFR (>60) mL/min BUN/Creatinine Ratio (6-22) Glucose (70-100) mg/dL Calcium (8.4-10.2) mg/dL Total Bilirubin (0.2-1.3) mg/dL AST (17-59) IU/L ALT (<50) IU/L Alkaline Phosphatase (38-126) U/L Total Protein (6.3-8.2) g/dL Albumin (3.5-5.0) g/dL Globulin (1.7-4.1) g/dL Albumin/Globulin Ratio (1.0-2.8) Influenza A (RT-PCR) Flu a negative (NEGATIVE) Influenza B (RT-PCR) Flu b negative (NEGATIVE) Blood Type O Positive Antibody Screen Negative Discharge Plan Departure Patient Disposition: Home Clinical Impression: Vomiting and diarrhea, Dehydration Discharge Date/Time: 01/31/20 00:18 Instructions: DI for Dehydration -- Adult, DI for Nausea -- Adult, DI for Vomiting -- Adult Activity Restrictions/Additional Instructions: 1. Drink plenty of fluids with frequent small sips. 2. For the next 24 hours a clear liquid diet is advised. After that please employ a brat diet which would include bananas, rice, apples, toast. 3. Please take medications as directed. 4. Please follow-up with your doctor in the next 1-2 days. Call the office for an appointment. 5. Please return to the emergency Department for any worsening or persistent symptoms, such as increasing pain or fever. Prescriptions: New ondansetron 4 mg tablet,disintegrating 4 mg PO TID-QID PRN (Reason: nausea and vomiting) Qty: 10 RF: 0 No Action ketorolac 10 mg tablet 10 mg PO Q6H PRN (Reason: pain) Qty: 14 RF: 0
[2020-01-30] MEDS: SODIUM CHLORIDE 0.9% 1,000 ML 150 ML IV (20:51)
[2020-01-30] MEDS: PANTOPRAZOLE 40 MG VIAL IV (20:51)
[2020-01-30] MEDS: ONDANSETRON 4 MG/2 ML INJ IV (20:51)
[2020-01-30 21:26] VITALS: BP 113/59; PULSE 109; RESP 22; O2SAT 95
[2020-01-30 21:45] LABS: Add Manual Diff / Slide Review NO; Basophils Absolute Auto 0 /uL (0-100); Basophils Percent Auto 0.4 % (0-2); Eosinophils Absolute Auto 100 /uL (0-450); Eosinophils Percent Auto 0.6 % (2-4); Hematocrit 45.2 % (41-53); Hemoglobin 15.3 g/dL (13.5-17.5); Lymphocytes Absolute Auto 1200 /uL (1100-4500); Lymphocytes Percent Auto 9.9 % (25-40); Mean Corpuscular HGB Conc 33.9 % (30-36); Mean Corpuscular Hemoglobin 29.6 PG (26-34); Mean Corpuscular Volume 87.2 fL (80-100); Monocytes Absolute Auto 900 /uL (0-900); Monocytes Percent Auto 7.3 % (3-14); Neutrophils Absolute Auto 10200 /uL (1500-7000); Neutrophils Percent Auto 81.8 % (50-75); Platelet Count 231 X10^3/uL (150-400); Red Blood Cell Count 5.19 X10^6/uL (4.5-5.9); White Blood Cell Count 12.4 X10^3/uL (4.5-11.0)
[2020-01-30 21:51] LABS: Prothrombin Time 11.6 SECONDS (10.1-12.7)
[2020-01-30 21:53] LABS: PTT Partial Thromboplastin Tim 27 SECONDS (26.4-36.2)
[2020-01-30 21:54] LABS: Alanine Aminotransferase 35 IU/L (<50); Albumin 4.5 g/dL (3.5-5.0); Albumin Globulin Ratio 1.4 (1.0-2.8); Alkaline Phosphatase 100 U/L (38-126); Aspartate Aminotransferase 31 IU/L (17-59); BUN Creatinine Ratio 13.6 (6-22); Bilirubin Total 0.4 mg/dL (0.2-1.3); Blood Urea Nitrogen 15 mg/dL (9-20); Calcium 9.8 mg/dL (8.4-10.2); Carbon Dioxide 30 mmol/L (22-32); Chloride 107 mmol/L (98-107); Estimated Glomerular Filt Rate > 60.0 mL/min (>60); Globulin 3.2 g/dL (1.7-4.1); Glucose 105 mg/dL (70-100); HEMOLYSIS < 15 (0-50); Potassium 3.7 mmol/L (3.4-5.1); Sodium 145 mmol/L (137-145); Total Protein 7.7 g/dL (6.3-8.2)
--- NOTE | 2020-01-30 22:22 | DI.RAD.S_ITS ---
PROCEDURE: XR CHEST 1V INDICATIONS: cough TECHNIQUE: One view of the chest was acquired. COMPARISON: None. FINDINGS: Surgical changes and devices: None. Lungs and pleura: Lungs are clear. No pleural effusions or pneumothorax. Mediastinum: Mediastinal contours appear normal. Heart size is normal. Bones and chest wall: No suspicious bony lesions. Overlying soft tissues appear unremarkable. IMPRESSION: No acute cardiopulmonary disease process. Dictated by: Ellie Haynes MD, PhD on 01/31/2020 at 8:18 Approved by: Ellie Haynes MD, PhD on 01/31/2020 at 8:18
[2020-01-30 22:40] LABS: Hematocrit 44.9 % (41-53); Hemoglobin 15.2 g/dL (13.5-17.5)
[2020-01-30 23:38] LABS: Influenza A - CEPHEID Flu A NEGATIVE (NEGATIVE); Influenza B - CEPHEID Flu B NEGATIVE (NEGATIVE)
[2020-01-30] MEDS: ONDANSETRON 4 MG ODT PREPACK 1 BOTTLE MISC (23:48)
[2020-01-31 00:09] VITALS: BP 136/65; PULSE 94; RESP 23; O2SAT 99
[2020-01-31 00:18] VITALS: TEMP 37.6
== END 2020-01-31 00:18 | disposition home or self-care (01) ==
PROVIDERS: Emergency Provider Emergency Medicine
DX: R11.2 Nausea with vomiting, unspecified (principal); R19.7 Diarrhea, unspecified; E86.0 Dehydration
CPT/HCPCS: 36415; 71045; 80053; 85014; 85018; 85025; 85610; 85730; 86850; 86900; 86901; 87502; 96361; 96374; 96375; 99284; C9113; J2405

== ENCOUNTER 2020-06-23 18:58 | Emergency (ER) | payer OTHER, SELFPAY ==
[2020-06-23 19:01] VITALS: BP 138/82; PULSE 107; RESP 28; TEMP 36.6; O2SAT 95
--- NOTE | 2020-06-23 19:06 | ED.EXTPRO ---
HPI - Extremity Problem General Chief complaint: Extremity Problem,Nontraumatic Stated complaint: SWELLING OF LEGS AND FEET Time Seen by Provider: 06/23/20 19:05 Source: patient Mode of arrival: Ambulatory Limitations: no limitations History of Present Illness HPI Narrative: 24-year-old male daily smoker without medical history presents with a chief complaint of swelling in the lower legs for the past few months. He states that he has been slightly less active than normal for about the past year because of a shoulder injury suffered at that time. He just started developing some discomfort in his lower legs today which is why he came in. He denies any significant shortness of breath but does state on occasion when he lays flat he has a hard time breathing. He denies any runny nose, sore throat or fever or chills. He has no chest pain. Denies any change in medications, [id number] supplements or diet. MD Complaint: extremity pain, extremity swelling and joint swelling Onset (ago): month(s) Pain Consistency: constant Location: left, right and lower extremity Quality: aching Radiation: none Relieving factors: nothing Exacerbating factors: exertion Associated symptoms: shortness of breath Related Data Previous Rx's Medication Instructions Recorded ketorolac 10 mg PO Q6H PRN #14 tab 09/18/19 ondansetron 4 mg PO TID-QID PRN #10 tab 01/31/20 Allergies Allergy/AdvReac Type Severity Reaction Status Date / Time bacitracin AdvReac Mild Rash Verified 12/18/18 10:55 [From Neosporin ([id number])] neomycin AdvReac Mild Rash Verified 12/18/18 10:55 [From Neosporin ([id number])] polymyxin B AdvReac Mild Rash Verified 12/18/18 10:55 [From Neosporin ([id number])] Review of Systems Constitutional Constitutional: Denies chills, Denies fatigue, Denies fever(s), Denies frequent falls, Denies lethargy and Denies weakness Eyes Eyes: Denies change in vision, Denies eye discharge, Denies irritation and Denies loss of vision ENT Ears, Nose, Mouth, and Throat: Denies change in voice, Denies dizziness, Denies neck pain, Denies sore throat and Denies throat swelling Cardiovascular Cardiovascular: Denies chest pain, Denies irregular heart rhythm, Reports leg edema, Denies lightheadedness, Denies palpitations, Denies dyspnea, Denies dyspnea on exertion and Reports orthopnea Respiratory Respiratory: Denies cough, Denies dyspnea, Denies dyspnea on exertion and Denies wheezing Gastrointestinal Gastrointestinal: Denies abdominal pain, Denies change in bowel habits, Denies diarrhea, Denies nausea and Denies vomiting Musculoskeletal Musculoskeletal: Denies neck pain and Denies numbness Integumentary/Breasts Skin/Breast: Denies pruritus, Denies erythema, Denies rash and Denies wounds Neurologic Neurologic: Denies behavioral changes, Denies confusion, Denies dizziness, Denies frequent falls, Denies loss of vision, Denies numbness and Denies weakness Psychiatric Psychiatric: Denies anxiety, Denies behavioral changes, Denies confusion, Denies depression, Denies homicidal ideation and Denies suicidal ideation Endocrine Endocrine: Denies fatigue, Denies flushing and Denies palpitations Hematologic/Lymphatic Hematologic/Lymphatic: Denies easy bruising Allergic/Immunologic Allergic/Immunologic: Denies urticaria, Denies throat swelling and Denies wheezing Patient History Medical History Diarrhea (Chronic) Surgical History Hx of cholecystectomy (Chronic) Social History Smoking Status: Current every day smoker Tobacco: How many years used: 10 alcohol intake: never substance use type: does not use Smoking Status: Current every day smoker alcohol intake frequency: 0-2 drinks per day Substance Use Type: does not use Exam Narrative Exam Narrative: GENERAL: [24] year old patient appears stated age. Well-nourished, well-developed patient, in mild distress. HEAD: Atraumatic. Normocephalic. EYES: Pupils equal round and reactive. Extraocular motions intact. No scleral icterus. No injection or drainage. ENT: Nose without bleeding, purulent drainage. Throat without erythema, tonsillar hypertrophy or exudate. Airway patent. NECK: Trachea midline. Non tender CARDIOVASCULAR: Regular rate and rhythm without murmurs, gallops, or rubs. RESPIRATORY: Clear to auscultation. Breath sounds equal bilaterally. No wheezes, rales, or rhonchi. GASTROINTESTINAL: Abdomen soft, non-tender, nondistended. EXTREMITIES: 1+ pitting edema B/L, no erythema or warmth BACK: Nontender without deformity or crepitance. No flank tenderness. NEURO: AOx3. SKIN: No rash or erythema of visible areas Initial Vital Signs Initial Vital Signs: Vital Signs Temperature 97.8 F 06/23/20 19:01 Pulse Rate 107 H 06/23/20 19:01 Respiratory Rate 28 H 06/23/20 19:01 Blood Pressure 138/82 06/23/20 19:01 Pulse Oximetry 95 06/23/20 19:01 Course Orders Ordered: ED Orders 06/23/20 19:30 Complete Blood Count AUTO DIFF Stat Comprehensive Metabolic Panel Stat D Dimer Stat Magnesium Stat NT-proBNP (BNP-Adult 18+) Stat Troponin & CK Cardiac Panel Stat 06/23/20 19:34 XR chest 2V Stat EKG-12 Lead Stat Vital Signs Vital signs: Vital Signs - 8 hr 06/23/20 19:01 06/23/20 19:25 06/23/20 20:34 Temperature 97.8 F Pulse Rate 107 H 100 H Respiratory Rate 28 H 16 Blood Pressure 138/82 132/73 133/67 Pulse Oximetry 95 97 MDM - Extremity (Nontraumatic) Lab Data Result diagrams: 06/23/20 19:30 06/23/20 19:30 Labs: Lab Results 06/23/20 06/23/20 06/23/20 Range/Units 19:30 19:30 19:30 WBC 9.6 (4.5-11.0) X10^3/uL RBC 4.99 (4.5-5.9) X10^6/uL Hgb 15.0 (13.5-17.5) g/dL Hct 43.2 (41-53) % MCV 86.5 (80-100) fL MCH 30.0 (26-34) PG MCHC 34.7 (30-36) % RDW 13.5 (11.6-14.8) % Plt Count 244 (150-400) X10^3/uL Neut % (Auto) 59.6 (50-75) % Lymph % (Auto) 30.2 (25-40) % Gordon % (Auto) 7.7 (3-14) % Eos % (Auto) 1.4 L (2-4) % Baso % (Auto) 1.1 (0-2) % Neut # (Auto) 5700 (3186-9015) /uL Lymph # (Auto) 2900 (1694-9917) /uL Gordon # (Auto) 700 (0-900) /uL Eos # (Auto) 100 (0-450) /uL Baso # (Auto) 100 (0-100) /uL D-Dimer < 200 (<230) ng/mL Sodium 138 (137-145) mmol/L Potassium 3.8 (3.4-5.1) mmol/L Chloride 107 (98-107) mmol/L Carbon Dioxide 25 (22-32) mmol/L BUN 14 (9-20) mg/dL Creatinine 0.95 (0.66-1.25) mg/dL Estimated GFR > 60.0 (>60) mL/min BUN/Creatinine Ratio 14.7 (6-22) Glucose 112 H (70-100) mg/dL Calcium 9.4 (8.4-10.2) mg/dL Magnesium 2.0 (1.6-2.3) mg/dL Total Bilirubin 0.5 (0.2-1.3) mg/dL AST 35 (17-59) IU/L ALT 38 (<50) IU/L Alkaline Phosphatase 90 (38-126) U/L Total Creatine Kinase (55-170) U/L CK-MB (CK-2) CK-MB (CK-2) Rel Index Troponin I (0.01-0.034) ng/mL NT-Pro-B Natriuret Pep (<125) pg/mL Total Protein 7.1 (6.3-8.2) g/dL Albumin 4.3 (3.5-5.0) g/dL Globulin 2.8 (1.7-4.1) g/dL Albumin/Globulin Ratio 1.5 (1.0-2.8) // Range/Units 19:30 WBC (4.5-11.0) X10^3/uL RBC (4.5-5.9) X10^6/uL Hgb (13.5-17.5) g/dL Hct (41-53) % MCV (80-100) fL MCH (26-34) PG MCHC (30-36) % RDW (11.6-14.8) % Plt Count (150-400) X10^3/uL Neut % (Auto) (50-75) % Lymph % (Auto) (25-40) % Gordon % (Auto) (3-14) % Eos % (Auto) (2-4) % Baso % (Auto) (0-2) % Neut # (Auto) (0784-3824) /uL Lymph # (Auto) (9322-2838) /uL Gordon # (Auto) (0-900) /uL Eos # (Auto) (0-450) /uL Baso # (Auto) (0-100) /uL D-Dimer (<230) ng/mL Sodium (137-145) mmol/L Potassium (3.4-5.1) mmol/L Chloride (98-107) mmol/L Carbon Dioxide (22-32) mmol/L BUN (9-20) mg/dL Creatinine (0.66-1.25) mg/dL Estimated GFR (>60) mL/min BUN/Creatinine Ratio (6-22) Glucose (70-100) mg/dL Calcium (8.4-10.2) mg/dL Magnesium (1.6-2.3) mg/dL Total Bilirubin (0.2-1.3) mg/dL AST (17-59) IU/L ALT (<50) IU/L Alkaline Phosphatase (38-126) U/L Total Creatine Kinase 81 (55-170) U/L CK-MB (CK-2) TNP CK-MB (CK-2) Rel Index TNP Troponin I < 0.012 (0.01-0.034) ng/mL NT-Pro-B Natriuret Pep 25 (<125) pg/mL Total Protein (6.3-8.2) g/dL Albumin (3.5-5.0) g/dL Globulin (1.7-4.1) g/dL Albumin/Globulin Ratio (1.0-2.8) Imaging Data Chest x-ray: Radiologist's Impression: [address] [address] XRay Report Signed Patient: Chao Higginbotham RMR#: [id number] : 1995Acct:[id number] Age/Sex: 24 / MDate of Service: 06/23/20 Loc: ED Accession Number: [id number] Procedure: XR chest 2V Ordering Provider: Chris Friedman D.O. PROCEDURE: XR CHEST 2V INDICATIONS: SOB, fatigue TECHNIQUE: 2 views of the chest were acquired. COMPARISON: [facility], CR, XR CHEST 1V, 01/30/2020, 22:40. FINDINGS: Surgical changes and devices: None. Lungs and pleura: Lungs are clear. No pleural effusions or pneumothorax. Mediastinum: Mediastinal contours are normal. Heart size is normal. Bones and chest wall: No suspicious bony abnormalities. Soft tissues appear unremarkable. IMPRESSION: No acute cardiopulmonary disease process. Dictated by: Ellie Haynes MD, PhD on 06/23/2020 at 20:10 Approved by: Ellie Haynes MD, PhD on 06/23/2020 at 20:10 MDM Narrative Medical decision making narrative: Multiple etiologies for patient's symptoms considered including: [Heart failure versus renal failure versus blood clot versus infection versus other] Patient's symptoms improved over duration of stay with above-stated therapies. Findings and discharge diagnosis discussed with patient/family followed by verbalization of understanding Return precautions discussed with patient/family whom verbalize understanding. Discharge Plan Departure Patient Disposition: Home Clinical Impression: Lower extremity edema Discharge Date/Time: 06/23/20 20:35 Instructions: DI for Dependent Edema Activity Restrictions/Additional Instructions: *You have been diagnosed with [ Bilateral lower extremity swelling, very reassuring labs. ] *What to do: *Follow up with your primary care provider in 2-3 days, call for an appointment. Let them know you were seen in the Emergency Department and that we ask that you be seen in follow up. If you do not have a physician, please contact the phone number listed below so that you may be connected with a local physician. *Return to ER if you should have any new, worsening or concerning symptoms *Elevate your legs as often as possible. Consider the use of compression stockings. Prescriptions: No Action ketorolac 10 mg tablet 10 mg PO Q6H PRN (Reason: pain) Qty: 14 RF: 0 ondansetron 4 mg tablet,disintegrating 4 mg PO TID-QID PRN (Reason: nausea and vomiting) Qty: 10 RF: 0 Referrals: [facility] [Outside]
[2020-06-23 19:25] VITALS: BP 132/73
--- NOTE | 2020-06-23 19:34 | DI.RAD.S_ITS ---
PROCEDURE: XR CHEST 2V INDICATIONS: SOB, fatigue TECHNIQUE: 2 views of the chest were acquired. COMPARISON: [facility], CR, XR CHEST 1V, 01/30/2020, 22:40. FINDINGS: Surgical changes and devices: None. Lungs and pleura: Lungs are clear. No pleural effusions or pneumothorax. Mediastinum: Mediastinal contours are normal. Heart size is normal. Bones and chest wall: No suspicious bony abnormalities. Soft tissues appear unremarkable. IMPRESSION: No acute cardiopulmonary disease process. Dictated by: Ellie Haynes MD, PhD on 06/23/2020 at 20:10 Approved by: Ellie Haynes MD, PhD on 06/23/2020 at 20:10
--- NOTE | 2020-06-23 19:37 | PC.NURSE ---
Pt reports B\L LE swelling x months new this visit is B\L pain. 1+ pitting, redness. no h/o DVT. familial h/o CHF. states more SOB than usual and more-so when lying flat. Lungs clear. HR regular. IV placed and labs sent. awaiting further orders.
[2020-06-23 19:41] LABS: Add Manual Diff / Slide Review NO; Basophils Absolute Auto 100 /uL (0-100); Basophils Percent Auto 1.1 % (0-2); Eosinophils Absolute Auto 100 /uL (0-450); Eosinophils Percent Auto 1.4 % (2-4); Hematocrit 43.2 % (41-53); Lymphocytes Absolute Auto 2900 /uL (1100-4500); Lymphocytes Percent Auto 30.2 % (25-40); Mean Corpuscular HGB Conc 34.7 % (30-36); Mean Corpuscular Volume 86.5 fL (80-100); Monocytes Absolute Auto 700 /uL (0-900); Monocytes Percent Auto 7.7 % (3-14); Neutrophils Absolute Auto 5700 /uL (1500-7000); Neutrophils Percent Auto 59.6 % (50-75); Platelet Count 244 X10^3/uL (150-400); Red Blood Cell Count 4.99 X10^6/uL (4.5-5.9); Red Cell Distribution Width 13.5 % (11.6-14.8); White Blood Cell Count 9.6 X10^3/uL (4.5-11.0)
[2020-06-23 19:54] LABS: Alanine Aminotransferase 38 IU/L (<50); Albumin 4.3 g/dL (3.5-5.0); Albumin Globulin Ratio 1.5 (1.0-2.8); Alkaline Phosphatase 90 U/L (38-126); Aspartate Aminotransferase 35 IU/L (17-59); BUN Creatinine Ratio 14.7 (6-22); Bilirubin Total 0.5 mg/dL (0.2-1.3); Blood Urea Nitrogen 14 mg/dL (9-20); Calcium 9.4 mg/dL (8.4-10.2); Carbon Dioxide 25 mmol/L (22-32); Chloride 107 mmol/L (98-107); Creatine Kinase 81 U/L (55-170); Estimated Glomerular Filt Rate > 60.0 mL/min (>60); Globulin 2.8 g/dL (1.7-4.1); Glucose 112 mg/dL (70-100); HEMOLYSIS 30 (0-50); Potassium 3.8 mmol/L (3.4-5.1); Sodium 138 mmol/L (137-145); Total Protein 7.1 g/dL (6.3-8.2)
[2020-06-23 19:57] LABS: D Dimer < 200 ng/mL (<230)
[2020-06-23 20:06] LABS: NT-proBNP (BNP-Adult 18+) 25 pg/mL (<125); Troponin I < 0.012 ng/mL (0.01-0.034)
[2020-06-23 20:34] VITALS: BP 133/67; PULSE 100; RESP 16; O2SAT 97
== END 2020-06-23 20:35 | disposition home or self-care (01) ==
PROVIDERS: Emergency Provider Emergency Medicine
DX: R60.0 Localized edema (principal); R06.02 Shortness of breath; R53.83 Other fatigue
CPT/HCPCS: 36415; 71046; 80053; 82550; 83735; 83880; 84484; 85025; 85379; 93005; 99284

== ENCOUNTER 2020-07-08 10:30 | Outpatient (RCR) | payer OTHER, SELFPAY ==
--- NOTE | 2019-12-04 11:57 | PT.OIE ---
Current Diagnoses Strain of unspecified muscle, fascia and tendon at shoulder and upper arm level, right arm, initial encounter (12/04/19) Past Medical History (Last Reviewed 09/18/19 @ 13:33 by Chris Friedman DO) Diarrhea (Chronic) Past Surgical History (Last Reviewed 09/18/19 @ 13:33 by Chris Friedman DO) Hx of cholecystectomy (Chronic) Visit Care Team Role Provider Type Del Franco MD Attending Provider Physician Primary Care Provider Specialty: Orthopedic Surgery Address: [address] [place] [address], [id number] Email: [email or web address] Physical Therapy Initial Evaluation PT-OP-A Visit Information Start: 12/04/19 08:07 Freq: Status: Active Protocol: Document 12/04/19 09:00 (Rec: 12/04/19 08:24 [email or web address]) Out-Patient Physical Therapy Visit Information Visit Information Visit Type Initial Evaluation Visit Start Time 09:00 Visit Stop Time 09:40 Total Visit Minutes 40 Visit Number 1/4 Number of GREEN MARKETING ANALYST Visits 0 Evaluation Information Evaluation Date 12/04/19 PT-OP-B Current Condition Start: 12/04/19 08:07 Freq: Status: Active Protocol: Document 12/04/19 09:00 (Rec: 12/04/19 08:24 [email or web address]) Current Condition History of Current Condition Onset Date Aug, 2019 Current Complaints R shoulder pain, difficulty in overhead activities d/t pain and weakness History of Current Condition Pt is a 23-year-old male daily smoker with history of right shoulder injury presents with a chief complaint of a ongoing and worsening right shoulder pain. He describes his pain as achy and pinching at the superioranterior aspect of R shoulder, along with noticeable weakness that limits him from doing lifting activtiies. He also has difficulty sleeping on his R side d/t pain. His pain is worse with motion and improves with rest. He does have episodes of some tingling going down to his hand (chisholm side 2nd to 4th digits). He had a work related injury earlier in the year and a rotator cuff injury. He had an MRI showing a partial supraspinatus tear and was taken to the OR by local orthopedics for a orthroscopic surgery on May 01/2018. He received physical therapy service at [facility] in the summer of 2018. He had been doing fine well until August when he was stretching any felt a pop in his shoulder and has worsening pain since then. He is still doing his HEP from previous PT which includes SL ABD, supine flexion, SL ER and wall slide to maintain his ROM but no strengthening ex. He also reports he switched his ortho Dr from Dr. Schumacher to Dr. Franco who believes that pt would be benefit from participating work conditioning from PT before any surgical approach. 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 Pt has been out of work from a year now d/t his injury Prior Treatments and Tests MRI at R shoulder= Low-grade bursal surface irregularity of the supraspinatus and infraspinatus tendons, potentially postsurgical appearance and/or fraying. No full-thickness tear identified . No articular sided tear seen . Adjacent mild subacromial- subdeltoid bursitis. No labral tear. Cervical MRI= 1. Preservation of disc height and disc signal throughout the cervical spine. 2. Moderate neuroforaminal stenosis on the right at C3-4 and on the left at C4-5. Severe right neuroforaminal narrowing at C3-4. 3. No canal stenosis, cord signal abnormality, or deformity of the cord. Future Testing and Treatments Planned f/u appt with Dr. Rizvi on Dec 18 Treatment Goals Patient/Caregiver Goals 1. To be pain free for entire ROM of R shoulder 2. To strengthening his shoulder musculature 3. To fully return to work and able to carry 50-75% objects without discomfort Prior Functional Status Baseline Function- ADL's Independent Baseline Function- Mobility Independent Baseline Function- Work/School work that requires active lifting, pushing and pulling Baseline Function- Recreation/Hobbies no limitation in any activities that requires overhead movements Current Functional Impairments (Reported) Functional Limitations- ADL's Pain during carter/doff clothes (D2 flexion and reach behind his back) Functional Limitations- Work/School Unable to work since a year ago. Unable to lift things >20 lb d/t pain Personal Factors Other Personal Factors That May Effect current smoker Therapy/Recovery PT-OP-C Subjective Start: 12/04/19 08:07 Freq: Status: Active Protocol: Document 12/04/19 09:00 (Rec: 12/04/19 11:56 [email or web address]) OP-PT Subjective Patient Comments Patient Comments It's very annoying to deal with this ongoing shoulder pain. Patient Questionnaires Quick Dash- Upper Extremity Quick Dash UE Score 77.3 Quick Dash UE Impairment 60 to 79% Impaired (Score 60- 79) OP-PT Pain Assessment Location Cervical Intensity 3 Scale Used Numeric (1 - 10) Description Dull Frequency Frequent Pain Aggravating Factors Position,Activity,Exercise Pain Alleviating Factors Inactivity,Lying Supine R shoulder Intensity 8 Description Aching,Dull,Pinching,Pressure Frequency Frequent Pain Aggravating Factors Position,Activity,Exercise, Lifting Pain Alleviating Factors Inactivity PT-OP-E Functional Tests Start: 12/04/19 08:07 Freq: Status: Active Protocol: Document 12/04/19 09:00 (Rec: 12/04/19 11:56 [email or web address]) Functional Tests Apley's Scratch Test Action 2- Left T4 Action 2- Right T2 Action 3- Left T4 SP Action 3- Right L scap inf pole PT-OP-F Manual Assessment Start: 12/04/19 08:07 Freq: Status: Active Protocol: Document 12/04/19 09:00 (Rec: 12/04/19 11:56 [email or web address]) Manual Assessments Other Manual Assessments Other Manual Assessments GH head anterior shift during R shoulder extension PT-OP-K Range of Motion Start: 12/04/19 08:07 Freq: Status: Active Protocol: Document 12/04/19 09:00 (Rec: 12/04/19 11:56 [email or web address]) Shoulder Goniometric Range of Motion Shoulder Left Active Shoulder ROM WFL Yes Testing Position Standing Flexion 160 Extension 150 External Rotation at 90 degrees 80 Abduction Internal Rotation 90 Right Active Shoulder ROM WFL Yes Testing Position Standing Flexion 160 Extension 65 Abduction 150 External Rotation at 90 degrees 65 Abduction Internal Rotation 54 Shoulder ROM Limitations Shoulder ROM Limitations Soft Tissue Tightness,Pain Comments moderate muscle guarding noted during end range ER and IR ( IR is more painful) PT-OP-L Special Tests Start: 12/04/19 08:07 Freq: Status: Active Protocol: Document 12/04/19 09:00 (Rec: 12/04/19 11:56 [email or web address]) Special Tests Cervical Spine Special Tests Spurling's Test Test Results -ve B Foraminal Compression Test Results +ve R Comments with ext/ R rotation at overpressure(radiating pain to top of R shoulder) Shoulder Special Tests Apprehension Test Test Results +VE R Comments decreased in pain with posterior glide of GH during eR and IR, along with increased ROM noted. AC Joint Compression Test Results +ve R IR/Horizontal ADD Impingement Test Results +ve R Comments pressure/ pinching sensation noted Lift-Off Rotator Cuff Test Results +VE R Comments difficulty lift off from back of his hip with c/o R shd pain Belly Press Test Results -ve Drop Arm Rotator Cuff Test Results -ve R Comments Able to hold position pain with resistance Empty Can Test Results +VE Comments pain with resistance PT-OP-M Strength Start: 12/04/19 08:07 Freq: Status: Active Protocol: Document 12/04/19 09:00 (Rec: 12/04/19 11:56 [email or web address]) Shoulder Strength Shoulder Manual Muscle Testing Right Flexion 4 Good Extension 4 Good Abduction (C5) 4- Good- External Rotation 4- Good- Internal Rotation 4- Good- Reason Not Measured Pain Left Flexion 5 Normal Extension 5 Normal Abduction (C5) 5 Normal Adduction 5 Normal External Rotation 5 Normal Internal Rotation 5 Normal PT-OP-Q Treatments Start: 12/04/19 08:07 Freq: Status: Active Protocol: Document 12/04/19 09:00 (Rec: 12/04/19 11:57 [email or web address]) Manual Therapy Treatment Joint Mobilizations GH Joint Gh joint (R) Direction post glide Grade II Body Position Supine Reps/Duration 10 sec x 8 Comments during IR and ER Self-Care/Home Management Treatment Education Patient Education Joint Protection,Pain Management,Posture Other Education on humeral alignment at GH joint PT-OP-T Assessment and Plan Start: 12/04/19 08:07 Freq: Status: Active Protocol: Document 12/04/19 09:00 (Rec: 12/04/19 11:56 [email or web address]) Physical Therapy Assessment Rehab Potential Rehabilitation Potential Excellent Evaluation Complexity Number of Personal Factors/Comorbidities 0 Number of Body Systems Impaired 1-2 Clinical Presentation at Evaluation Stable Impairments Impairments Activity Tolerance,Functional Activities,Functional Mobility ,Pain,Posture,ROM,Soft Tissue Mobility,Strength Goals pain Impairment +ve on cervical ext/R rot, lift off test, ER/IR, AC joint compression Cutting Machine Offbearer Goal (LTG) Pt will be pain free for all special tests (cervical ext/R rot, lift off test, shoulder ER/IR and Ac joint compression ) LTG Duration 8 weeks strength Impairment Pt's R shd strength = 4/5 grossly Alf Goal (LTG) Pt will reach 5/5 grossly for all directions and able to carry up to 75 lbs of object at waist level with pain < 2/ 10 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 LTG Duration 8 weeks ROM Impairment Pt's ER= 65 and IR= 54 Short Term Goal (STG) Pt will reach 80 and 80 for ER and IR with shd at 90 degrees . STG Duration 4 weeks Alf Goal (LTG) Pt will reach full range of ER and IR up to 90 without pain so pt can carter/doff clothes without discomfort LTG Duration 8 weeks Quickdash Impairment Pt scores 77.3 (60-79% impairment) on quick dash Short Term Goal (STG) pt will score <40 on Quickdash to improve his functional mobility and strength to improve his quality of lift. STG Duration 4 weeks Alf Goal (LTG) pt will score <20 on Quickdash to improve his functional mobility and strength to improve his quality of lift. LTG Duration 8 weeks Assessment Summary Assessment Pt is a 24 yo male presented to clinic with ongoing R shoulder pain. Pt had PT before but he reinjured himself in Aug, 2019. Pt currently is unable to return to work since a year ago. Upon assessment, pt has close to baseline R shoulder AROM except ER and IR ( 65 & 54 degrees), along noticeable weakness in all directions. Pain was reproduced AC joint compression, empty can, end range ER and IR and extension. There's significant anterior translation of humeral head ER , IR and ext and his pain was reduced immediately with posterior glide during ER and IR. He also has radiating pain at R shoulder during active cervical ext and R rotation. In my professional opinion, Pt will benefit from skilled therapy to improved glenohumaral alignment, RTC strength, R scap stability and work conditioning in order to assist pt return to work fully. Physical Therapy Plan Frequency and Duration Frequency of Treatment 2x/Week Duration of Treatment 8 weeks Plan of Care Start Date 12/04/19 Plan of Care End Date 02/02/20 Therapeutic Interventions Therapeutic Interventions Balance Training,Home Exercise Program,Joint Mobilizations, Manual Therapy,Neuromuscular Re-education,Patient/Caregiver Education,Self-Care/Home Management,Soft Tissue Mobilization,Taping, Therapeutic Activities, Therapeutic Exercises Modalities Cold Pack/Ice Massage,Electric Stimulation,Hot Packs, Traction- Mechanical, Ultrasound Next Visit Focus/Plan Next Note Type Treatment Note Next Visit Plan check UTTT cervical traction post glide of GH joint mob with movement T/S ext mobility.
--- NOTE | 2019-12-04 11:58 | PT.OPPOC ---
Physical, Occupational & Speech Therapy At [facility] Current Diagnoses Strain of unspecified muscle, fascia and tendon at shoulder and upper arm level, right arm, initial encounter (12/04/19) Visit Care Team Role Provider Type Del Franco MD Attending Provider Physician Primary Care Provider Specialty: Orthopedic Surgery Address: [address] [place] [address], [place], [address] Email: [email or web address] Plan Of Care PT-OP-T Assessment and Plan Start: 12/04/19 08:07 Freq: Status: Active Protocol: Document 12/04/19 09:00 (Rec: 12/04/19 11:56 [email or web address]) Physical Therapy Assessment Rehab Potential Rehabilitation Potential Excellent Evaluation Complexity Number of Personal Factors/Comorbidities 0 Number of Body Systems Impaired 1-2 Clinical Presentation at Evaluation Stable Impairments Impairments Activity Tolerance,Functional Activities,Functional Mobility ,Pain,Posture,ROM,Soft Tissue Mobility,Strength Goals pain Impairment +ve on cervical ext/R rot, lift off test, ER/IR, AC joint compression Electrical Maintenance Worker Goal (LTG) Pt will be pain free for all special tests (cervical ext/R rot, lift off test, shoulder ER/IR and Ac joint compression ) LTG Duration 8 weeks strength Impairment Pt's R shd strength = 4/5 grossly Electrical Maintenance Worker Goal (LTG) Pt will reach 5/5 grossly for all directions and able to carry up to 75 lbs of object at waist level with pain < 2/ 10 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 LTG Duration 8 weeks ROM Impairment Pt's ER= 65 and IR= 54 Short Term Goal (STG) Pt will reach 80 and 80 for ER and IR with shd at 90 degrees . STG Duration 4 weeks Long-Term Goal (LTG) Pt will reach full range of ER and IR up to 90 without pain so pt can carter/doff clothes without discomfort LTG Duration 8 weeks Quickdash Impairment Pt scores 77.3 (60-79% impairment) on quick dash Short Term Goal (STG) pt will score <40 on Quickdash to improve his functional mobility and strength to improve his quality of lift. STG Duration 4 weeks Long-Term Goal (LTG) pt will score <20 on Quickdash to improve his functional mobility and strength to improve his quality of lift. LTG Duration 8 weeks Assessment Summary Assessment Pt is a 24 yo male presented to clinic with ongoing R shoulder pain. Pt had PT before but he reinjured himself in Aug, 2019. Pt currently is unable to return to work since a year ago. Upon assessment, pt has close to baseline R shoulder AROM except ER and IR ( 65 & 54 degrees), along noticeable weakness in all directions. Pain was reproduced AC joint compression, empty can, end range ER and IR and extension. There's significant anterior translation of humeral head ER , IR and ext and his pain was reduced immediately with posterior glide during ER and IR. He also has radiating pain at R shoulder during active cervical ext and R rotation. In my professional opinion, Pt will benefit from skilled therapy to improved glenohumaral alignment, RTC strength, R scap stability and work conditioning in order to assist pt return to work fully. Physical Therapy Plan Frequency and Duration Frequency of Treatment 2x/Week Duration of Treatment 8 weeks Plan of Care Start Date 12/04/19 Plan of Care End Date 02/02/20 Therapeutic Interventions Therapeutic Interventions Balance Training,Home Exercise Program,Joint Mobilizations, Manual Therapy,Neuromuscular Re-education,Patient/Caregiver Education,Self-Care/Home Management,Soft Tissue Mobilization,Taping, Therapeutic Activities, Therapeutic Exercises Modalities Cold Pack/Ice Massage,Electric Stimulation,Hot Packs, Traction- Mechanical, Ultrasound Next Visit Focus/Plan Next Note Type Treatment Note Next Visit Plan check UTTT cervical traction post glide of GH joint mob with movement T/S ext mobility. Plan of Care Dates Plan of Care Start Date 12/04/19 Plan of Care End Date 02/02/20 Electronically Signed by: Nicholas Weaver, PT 12/04/19 [id number] Please Sign and Return: I have reviewed this Plan of Care and certify that the skilled therapy services above are required to meet the patient?s needs. Physician Signature Date Printed Name and Credentials Clinical Instructor Signature Printed Name and Credentials
--- NOTE | 2019-12-06 16:48 | PT.OTN ---
Current Diagnoses Strain of unspecified muscle, fascia and tendon at shoulder and upper arm level, right arm, initial encounter (12/06/19) Physical Therapy Treatment Note PT-OP-A Visit Information Start: 12/04/19 08:07 Freq: Status: Active Protocol: Document 12/06/19 16:00 HH (Rec: 12/06/19 16:48 HH [id number]) Out-Patient Physical Therapy Visit Information Visit Information Visit Type Treatment Note Visit Start Time 16:00 Visit Stop Time 16:42 Total Visit Minutes 42 Visit Number 2/4 Number of LABORATORY EQUIPMENT CLEANER Visits 0 PT-OP-B Current Condition Start: 12/04/19 08:07 Freq: Status: Active Protocol: Document 12/04/19 09:00 HH (Rec: 12/04/19 08:24 HH [email or web address]) Current Condition History of Current Condition Onset Date Aug, 2019 Current Complaints R shoulder pain, difficulty in overhead activities d/t pain and weakness History of Current Condition Pt is a 23-year-old male daily smoker with history of right shoulder injury presents with a chief complaint of a ongoing and worsening right shoulder pain. He describes his pain as achy and pinching at the superioranterior aspect of R shoulder, along with noticeable weakness that limits him from doing lifting activtiies. He also has difficulty sleeping on his R side d/t pain. His pain is worse with motion and improves with rest. He does have episodes of some tingling going down to his hand (chisholm side 2nd to 4th digits). He had a work related injury earlier in the year and a rotator cuff injury. He had an MRI showing a partial supraspinatus tear and was taken to the OR by local orthopedics for a orthroscopic surgery on May 01/2018. He received physical therapy service at [facility] in the summer of 2018. He had been doing fine well until August when he was stretching any felt a pop in his shoulder and has worsening pain since then. He is still doing his HEP from previous PT which includes SL ABD, supine flexion, SL ER and wall slide to maintain his ROM but no strengthening ex. He also reports he switched his ortho Dr from Dr. Schumacher to Dr. Franco who believes that pt would be benefit from participating work conditioning from PT before any surgical approach. 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 Pt has been out of work from a year now d/t his injury Prior Treatments and Tests MRI at R shoulder= Low-grade bursal surface irregularity of the supraspinatus and infraspinatus tendons, potentially postsurgical appearance and/or fraying. No full-thickness tear identified . No articular sided tear seen . Adjacent mild subacromial- subdeltoid bursitis. No labral tear. Cervical MRI= 1. Preservation of disc height and disc signal throughout the cervical spine. 2. Moderate neuroforaminal stenosis on the right at C3-4 and on the left at C4-5. Severe right neuroforaminal narrowing at C3-4. 3. No canal stenosis, cord signal abnormality, or deformity of the cord. Future Testing and Treatments Planned f/u appt with Dr. Rizvi on Dec 18 Treatment Goals Patient/Caregiver Goals 1. To be pain free for entire ROM of R shoulder 2. To strengthening his shoulder musculature 3. To fully return to work and able to carry 50-75% objects without discomfort Prior Functional Status Baseline Function- ADL's Independent Baseline Function- Mobility Independent Baseline Function- Work/School work that requires active lifting, pushing and pulling Baseline Function- Recreation/Hobbies no limitation in any activities that requires overhead movements Current Functional Impairments (Reported) Functional Limitations- ADL's Pain during carter/doff clothes (D2 flexion and reach behind his back) Functional Limitations- Work/School Unable to work since a year ago. Unable to lift things >20 lb d/t pain Personal Factors Other Personal Factors That May Effect current smoker Therapy/Recovery PT-OP-C Subjective Start: 12/04/19 08:07 Freq: Status: Active Protocol: Document 12/06/19 16:00 (Rec: 12/06/19 16:48 [id number]) OP-PT Subjective Patient Comments Patient Comments This is the first time i feel my shoulder has relief after tuesday even though its only few minutes of treatment. Patient Reported Progress Improving PT-OP-E Functional Tests Start: 12/04/19 08:07 Freq: Status: Active Protocol: Document 12/04/19 09:00 (Rec: 12/04/19 11:56 [email or web address]) Functional Tests Apley's Scratch Test Action 2- Left T4 Action 2- Right T2 Action 3- Left T4 SP Action 3- Right L scap inf pole PT-OP-F Manual Assessment Start: 12/04/19 08:07 Freq: Status: Active Protocol: Document 12/04/19 09:00 (Rec: 12/04/19 11:56 [email or web address]) Manual Assessments Other Manual Assessments Other Manual Assessments GH head anterior shift during R shoulder extension PT-OP-K Range of Motion Start: 12/04/19 08:07 Freq: Status: Active Protocol: Document 12/04/19 09:00 (Rec: 12/04/19 11:56 [email or web address]) Shoulder Goniometric Range of Motion Shoulder Left Active Shoulder ROM WFL Yes Testing Position Standing Flexion 160 Extension 150 External Rotation at 90 degrees 80 Abduction Internal Rotation 90 Right Active Shoulder ROM WFL Yes Testing Position Standing Flexion 160 Extension 65 Abduction 150 External Rotation at 90 degrees 65 Abduction Internal Rotation 54 Shoulder ROM Limitations Shoulder ROM Limitations Soft Tissue Tightness,Pain Comments moderate muscle guarding noted during end range ER and IR ( IR is more painful) PT-OP-L Special Tests Start: 12/04/19 08:07 Freq: Status: Active Protocol: Document 12/04/19 09:00 (Rec: 12/04/19 11:56 [email or web address]) Special Tests Cervical Spine Special Tests Spurling's Test Test Results -ve B Foraminal Compression Test Results +ve R Comments with ext/ R rotation at overpressure(radiating pain to top of R shoulder) Shoulder Special Tests Apprehension Test Test Results +VE R Comments decreased in pain with posterior glide of GH during eR and IR, along with increased ROM noted. AC Joint Compression Test Results +ve R IR/Horizontal ADD Impingement Test Results +ve R Comments pressure/ pinching sensation noted Lift-Off Rotator Cuff Test Results +VE R Comments difficulty lift off from back of his hip with c/o R shd pain Belly Press Test Results -ve Drop Arm Rotator Cuff Test Results -ve R Comments Able to hold position pain with resistance Empty Can Test Results +VE Comments pain with resistance PT-OP-M Strength Start: 12/04/19 08:07 Freq: Status: Active Protocol: Document 12/04/19 09:00 (Rec: 12/04/19 11:56 [email or web address]) Shoulder Strength Shoulder Manual Muscle Testing Right Flexion 4 Good Extension 4 Good Abduction (C5) 4- Good- External Rotation 4- Good- Internal Rotation 4- Good- Reason Not Measured Pain Left Flexion 5 Normal Extension 5 Normal Abduction (C5) 5 Normal Adduction 5 Normal External Rotation 5 Normal Internal Rotation 5 Normal PT-OP-Q Treatments Start: 12/04/19 08:07 Freq: Status: Active Protocol: Document 12/06/19 16:00 (Rec: 12/06/19 16:48 [id number]) Therapeutic Exercises Supine Exercises chin tuck Reps/Minutes 5 sec hold x5 Standing Exercises median nerve glide Standing Exercise Name with L cervical SB Side right Reps/Minutes 5 x 2 Comments for HEP Manual Therapy Treatment Soft Tissue Mobilization STM Body Location R pec, infraspinatus, Lats Mobilization Type Strumming,Sustained Pressure, Trigger Point Release Intensity/Depth Moderate Body Position Sidelying Joint Mobilizations GH Joint Gh joint (R) Direction post glide Grade II Body Position Supine Reps/Duration 10 sec x 8 Comments during IR and ER self mob with gait belt and DB as well Manual Traction c/s traction Body Position Supine Reps/Duration 10 secs hold x5 PT-OP-T Assessment and Plan Start: 12/04/19 08:07 Freq: Status: Active Protocol: Document 12/06/19 16:00 (Rec: 12/06/19 16:48 [id number]) Physical Therapy Assessment Goals pain Impairment +ve on cervical ext/R rot, lift off test, ER/IR, AC joint compression Nursing Home Goal (LTG) Pt will be pain free for all special tests (cervical ext/R rot, lift off test, shoulder ER/IR and Ac joint compression ) LTG Duration 8 weeks strength Impairment Pt's R shd strength = 4/5 grossly Nursing Home Goal (LTG) Pt will reach 5/5 grossly for all directions and able to carry up to 75 lbs of object at waist level with pain < 2/ 10 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 LTG Duration 8 weeks ROM Impairment Pt's ER= 65 and IR= 54 Short Term Goal (STG) Pt will reach 80 and 80 for ER and IR with shd at 90 degrees . STG Duration 4 weeks Nursing Home Goal (LTG) Pt will reach full range of ER and IR up to 90 without pain so pt can carter/doff clothes without discomfort LTG Duration 8 weeks Quickdash Impairment Pt scores 77.3 (60-79% impairment) on quick dash Short Term Goal (STG) pt will score <40 on Quickdash to improve his functional mobility and strength to improve his quality of lift. STG Duration 4 weeks Nursing Home Goal (LTG) pt will score <20 on Quickdash to improve his functional mobility and strength to improve his quality of lift. LTG Duration 8 weeks Assessment Summary Assessment UTTT was positive for median nerve on Rarm. Pt reports decreased pain since last tx. tx focused on posterior GH slide, RTC and lat release and nerve glide. Pt has significant tenderness to pressure at infraspinatus. Pt was able to reach 9090 ERIR at the end of session with minimal pain Physical Therapy Plan Next Visit Focus/Plan Next Note Type Treatment Note Next Visit Plan cervical traction post glide of GH joint mob with movement T/S ext mobility.
--- NOTE | 2019-12-13 16:52 | PT.OTN ---
Current Diagnoses Strain of unspecified muscle, fascia and tendon at shoulder and upper arm level, right arm, initial encounter (12/13/19) Physical Therapy Treatment Note PT-OP-A Visit Information Start: 12/04/19 08:07 Freq: Status: Active Protocol: Document 12/13/19 16:00 HH (Rec: 12/13/19 16:52 [email or web address]) Out-Patient Physical Therapy Visit Information Visit Information Visit Type Treatment Note Visit Start Time 16:00 Visit Stop Time 16:45 Total Visit Minutes 45 Visit Number 3/4 Number of DIGITAL MARKETING OFFICER Visits 0 PT-OP-B Current Condition Start: 12/04/19 08:07 Freq: Status: Active Protocol: Document 12/04/19 09:00 HH (Rec: 12/04/19 08:24 [email or web address]) Current Condition History of Current Condition Onset Date Aug, 2019 Current Complaints R shoulder pain, difficulty in overhead activities d/t pain and weakness History of Current Condition Pt is a 23-year-old male daily smoker with history of right shoulder injury presents with a chief complaint of a ongoing and worsening right shoulder pain. He describes his pain as achy and pinching at the superioranterior aspect of R shoulder, along with noticeable weakness that limits him from doing lifting activtiies. He also has difficulty sleeping on his R side d/t pain. His pain is worse with motion and improves with rest. He does have episodes of some tingling going down to his hand (chisholm side 2nd to 4th digits). He had a work related injury earlier in the year and a rotator cuff injury. He had an MRI showing a partial supraspinatus tear and was taken to the OR by local orthopedics for a orthroscopic surgery on May 01/2018. He received physical therapy service at [facility] in the summer of 2018. He had been doing fine well until August when he was stretching any felt a pop in his shoulder and has worsening pain since then. He is still doing his HEP from previous PT which includes SL ABD, supine flexion, SL ER and wall slide to maintain his ROM but no strengthening ex. He also reports he switched his ortho Dr from Dr. Schumacher to Dr. Franco who believes that pt would be benefit from participating work conditioning from PT before any surgical approach. 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 Pt has been out of work from a year now d/t his injury Prior Treatments and Tests MRI at R shoulder= Low-grade bursal surface irregularity of the supraspinatus and infraspinatus tendons, potentially postsurgical appearance and/or fraying. No full-thickness tear identified . No articular sided tear seen . Adjacent mild subacromial- subdeltoid bursitis. No labral tear. Cervical MRI= 1. Preservation of disc height and disc signal throughout the cervical spine. 2. Moderate neuroforaminal stenosis on the right at C3-4 and on the left at C4-5. Severe right neuroforaminal narrowing at C3-4. 3. No canal stenosis, cord signal abnormality, or deformity of the cord. Future Testing and Treatments Planned f/u appt with Dr. Rizvi on Dec 18 Treatment Goals Patient/Caregiver Goals 1. To be pain free for entire ROM of R shoulder 2. To strengthening his shoulder musculature 3. To fully return to work and able to carry 50-75% objects without discomfort Prior Functional Status Baseline Function- ADL's Independent Baseline Function- Mobility Independent Baseline Function- Work/School work that requires active lifting, pushing and pulling Baseline Function- Recreation/Hobbies no limitation in any activities that requires overhead movements Current Functional Impairments (Reported) Functional Limitations- ADL's Pain during carter/doff clothes (D2 flexion and reach behind his back) Functional Limitations- Work/School Unable to work since a year ago. Unable to lift things >20 lb d/t pain Personal Factors Other Personal Factors That May Effect current smoker Therapy/Recovery PT-OP-C Subjective Start: 12/04/19 08:07 Freq: Status: Active Protocol: Document 12/13/19 16:00 HH (Rec: 12/13/19 16:52 [id number]) OP-PT Subjective Patient Comments Patient Comments My pain is at 6/10 compared to 10/10 for the entire last year. Seems like i could do more and reach easier. Patient Reported Progress Improving PT-OP-E Functional Tests Start: 12/04/19 08:07 Freq: Status: Active Protocol: Document 12/04/19 09:00 HH (Rec: 12/04/19 11:56 [email or web address]) Functional Tests Apley's Scratch Test Action 2- Left T4 Action 2- Right T2 Action 3- Left T4 SP Action 3- Right L scap inf pole PT-OP-F Manual Assessment Start: 12/04/19 08:07 Freq: Status: Active Protocol: Document 12/04/19 09:00 (Rec: 12/04/19 11:56 [email or web address]) Manual Assessments Other Manual Assessments Other Manual Assessments GH head anterior shift during R shoulder extension PT-OP-K Range of Motion Start: 12/04/19 08:07 Freq: Status: Active Protocol: Document 12/04/19 09:00 (Rec: 12/04/19 11:56 [email or web address]) Shoulder Goniometric Range of Motion Shoulder Left Active Shoulder ROM WFL Yes Testing Position Standing Flexion 160 Extension 150 External Rotation at 90 degrees 80 Abduction Internal Rotation 90 Right Active Shoulder ROM WFL Yes Testing Position Standing Flexion 160 Extension 65 Abduction 150 External Rotation at 90 degrees 65 Abduction Internal Rotation 54 Shoulder ROM Limitations Shoulder ROM Limitations Soft Tissue Tightness,Pain Comments moderate muscle guarding noted during end range ER and IR ( IR is more painful) PT-OP-L Special Tests Start: 12/04/19 08:07 Freq: Status: Active Protocol: Document 12/04/19 09:00 (Rec: 12/04/19 11:56 [email or web address]) Special Tests Cervical Spine Special Tests Spurling's Test Test Results -ve B Foraminal Compression Test Results +ve R Comments with ext/ R rotation at overpressure(radiating pain to top of R shoulder) Shoulder Special Tests Apprehension Test Test Results +VE R Comments decreased in pain with posterior glide of GH during eR and IR, along with increased ROM noted. AC Joint Compression Test Results +ve R IR/Horizontal ADD Impingement Test Results +ve R Comments pressure/ pinching sensation noted Lift-Off Rotator Cuff Test Results +VE R Comments difficulty lift off from back of his hip with c/o R shd pain Belly Press Test Results -ve Drop Arm Rotator Cuff Test Results -ve R Comments Able to hold position pain with resistance Empty Can Test Results +VE Comments pain with resistance PT-OP-M Strength Start: 12/04/19 08:07 Freq: Status: Active Protocol: Document 12/04/19 09:00 (Rec: 12/04/19 11:56 [email or web address]) Shoulder Strength Shoulder Manual Muscle Testing Right Flexion 4 Good Extension 4 Good Abduction (C5) 4- Good- External Rotation 4- Good- Internal Rotation 4- Good- Reason Not Measured Pain Left Flexion 5 Normal Extension 5 Normal Abduction (C5) 5 Normal Adduction 5 Normal External Rotation 5 Normal Internal Rotation 5 Normal PT-OP-Q Treatments Start: 12/04/19 08:07 Freq: Status: Active Protocol: Document 12/13/19 16:00 (Rec: 12/13/19 16:52 [id number]) Therapeutic Exercises Sidelying Exercises horziontal abd Side right Equipment Used 1lb open book Side right Reps/Minutes 10 x2 shoulder ER Side right Equipment Used 2lbs Reps/Minutes 10 x2 Sitting Exercises nohelia Sitting Exercise Name GH ER and IR Side bilateral Reps/Minutes 4 mins Standing Exercises GH IR Standing Exercise Name with scap retraction Side right Reps/Minutes 8 x2 Comments hand behind back with scap retraction median nerve glide Standing Exercise Name with L cervical SB Side right Reps/Minutes 5 x 2 Comments for HEP Manual Therapy Treatment Soft Tissue Mobilization STM Body Location R pec, infraspinatus, Lats Mobilization Type Strumming,Sustained Pressure, Trigger Point Release Intensity/Depth Moderate Body Position Sidelying Comments add subscapularis Joint Mobilizations GH 2 Joint GH joint R Direction inferior posterior glide Grade II Body Position Supine Reps/Duration 10 sec x 8 Comments with horizontal add GH Joint Gh joint (R) Direction post glide Grade II Body Position Supine Reps/Duration 10 sec x 8 Comments during IR and ER self mob with gait belt and DB as well PT-OP-T Assessment and Plan Start: 12/04/19 08:07 Freq: Status: Active Protocol: Document 12/13/19 16:00 (Rec: 12/13/19 16:52 [id number]) Physical Therapy Assessment Goals pain Impairment +ve on cervical ext/R rot, lift off test, ER/IR, AC joint compression Retirement Goal (LTG) Pt will be pain free for all special tests (cervical ext/R rot, lift off test, shoulder ER/IR and Ac joint compression ) LTG Duration 8 weeks strength Impairment Pt's R shd strength = 4/5 grossly Retirement Goal (LTG) Pt will reach 5/5 grossly for all directions and able to carry up to 75 lbs of object at waist level with pain < 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 LTG Duration 8 weeks ROM Impairment Pt's ER= 65 and IR= 54 Short Term Goal (STG) Pt will reach 80 and 80 for ER and IR with shd at 90 degrees . STG Duration 4 weeks Drop Shipment Clerk Goal (LTG) Pt will reach full range of ER and IR up to 90 without pain so pt can carter/doff clothes without discomfort LTG Duration 8 weeks Quickdash Impairment Pt scores 77.3 (60-79% impairment) on quick dash Short Term Goal (STG) pt will score <40 on Quickdash to improve his functional mobility and strength to improve his quality of lift. STG Duration 4 weeks Retirement Goal (LTG) pt will score <20 on Quickdash to improve his functional mobility and strength to improve his quality of lift. LTG Duration 8 weeks Assessment Summary Assessment Significant reduced discomfort with STM at infrapsinatus today. Improved active IR and ER as well. Pt reports reaching behind back / end range ER/IR tend to increase discomfort but reduced with scap retraciton engagement. Physical Therapy Plan Next Visit Focus/Plan Next Note Type Treatment Note Next Visit Plan ER/IR strengthening scap movement educatoin cervical traction post glide of GH joint mob with movement T/S ext mobility.
--- NOTE | 2019-12-18 17:03 | PT.OTN ---
Current Diagnoses Strain of unspecified muscle, fascia and tendon at shoulder and upper arm level, right arm, initial encounter (12/18/19) Physical Therapy Treatment Note PT-OP-A Visit Information Start: 12/04/19 08:07 Freq: Status: Active Protocol: Document 12/18/19 16:10 HH (Rec: 12/18/19 17:03 HH [email or web address]) Out-Patient Physical Therapy Visit Information Visit Information Visit Type Treatment Note Visit Start Time 16:10 Visit Stop Time 16:57 Total Visit Minutes 47 Visit Number 4/16 Number of PRINCIPAL ARCHAEOLOGIST Visits 0 PT-OP-B Current Condition Start: 12/04/19 08:07 Freq: Status: Active Protocol: Document 12/04/19 09:00 HH (Rec: 12/04/19 08:24 HH [email or web address]) Current Condition History of Current Condition Onset Date Aug, 2019 Current Complaints R shoulder pain, difficulty in overhead activities d/t pain and weakness History of Current Condition Pt is a 23-year-old male daily smoker with history of right shoulder injury presents with a chief complaint of a ongoing and worsening right shoulder pain. He describes his pain as achy and pinching at the superioranterior aspect of R shoulder, along with noticeable weakness that limits him from doing lifting activtiies. He also has difficulty sleeping on his R side d/t pain. His pain is worse with motion and improves with rest. He does have episodes of some tingling going down to his hand (chisholm side 2nd to 4th digits). He had a work related injury earlier in the year and a rotator cuff injury. He had an MRI showing a partial supraspinatus tear and was taken to the OR by local orthopedics for a orthroscopic surgery on May 01/2018. He received physical therapy service at [facility] in the summer of 2018. He had been doing fine well until August when he was stretching any felt a pop in his shoulder and has worsening pain since then. He is still doing his HEP from previous PT which includes SL ABD, supine flexion, SL ER and wall slide to maintain his ROM but no strengthening ex. He also reports he switched his ortho Dr from Dr. Schumacher to Dr. Franco who believes that pt would be benefit from participating work conditioning from PT before any surgical approach. 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 Pt has been out of work from a year now d/t his injury Prior Treatments and Tests MRI at R shoulder= Low-grade bursal surface irregularity of the supraspinatus and infraspinatus tendons, potentially postsurgical appearance and/or fraying. No full-thickness tear identified . No articular sided tear seen . Adjacent mild subacromial- subdeltoid bursitis. No labral tear. Cervical MRI= 1. Preservation of disc height and disc signal throughout the cervical spine. 2. Moderate neuroforaminal stenosis on the right at C3-4 and on the left at C4-5. Severe right neuroforaminal narrowing at C3-4. 3. No canal stenosis, cord signal abnormality, or deformity of the cord. Future Testing and Treatments Planned f/u appt with Dr. Rizvi on Dec 18 Treatment Goals Patient/Caregiver Goals 1. To be pain free for entire ROM of R shoulder 2. To strengthening his shoulder musculature 3. To fully return to work and able to carry 50-75% objects without discomfort Prior Functional Status Baseline Function- ADL's Independent Baseline Function- Mobility Independent Baseline Function- Work/School work that requires active lifting, pushing and pulling Baseline Function- Recreation/Hobbies no limitation in any activities that requires overhead movements Current Functional Impairments (Reported) Functional Limitations- ADL's Pain during carter/doff clothes (D2 flexion and reach behind his back) Functional Limitations- Work/School Unable to work since a year ago. Unable to lift things >20 lb d/t pain Personal Factors Other Personal Factors That May Effect current smoker Therapy/Recovery PT-OP-C Subjective Start: 12/04/19 08:07 Freq: Status: Active Protocol: Document 12/18/19 16:10 HH (Rec: 12/18/19 17:03 [email or web address]) OP-PT Subjective Patient Comments Patient Comments it's getting better but slowly. Im able to reach across my opposite shoulder without discomfort. Reaching behind my back is getting easier too. Patient Reported Progress Improving PT-OP-E Functional Tests Start: 12/04/19 08:07 Freq: Status: Active Protocol: Document 12/04/19 09:00 HH (Rec: 12/04/19 11:56 [email or web address]) Functional Tests Apley's Scratch Test Action 2- Left T4 Action 2- Right T2 Action 3- Left T4 SP Action 3- Right L scap inf pole PT-OP-F Manual Assessment Start: 12/04/19 08:07 Freq: Status: Active Protocol: Document 12/04/19 09:00 (Rec: 12/04/19 11:56 [email or web address]) Manual Assessments Other Manual Assessments Other Manual Assessments GH head anterior shift during R shoulder extension PT-OP-K Range of Motion Start: 12/04/19 08:07 Freq: Status: Active Protocol: Document 12/04/19 09:00 (Rec: 12/04/19 11:56 [email or web address]) Shoulder Goniometric Range of Motion Shoulder Left Active Shoulder ROM WFL Yes Testing Position Standing Flexion 160 Extension 150 External Rotation at 90 degrees 80 Abduction Internal Rotation 90 Right Active Shoulder ROM WFL Yes Testing Position Standing Flexion 160 Extension 65 Abduction 150 External Rotation at 90 degrees 65 Abduction Internal Rotation 54 Shoulder ROM Limitations Shoulder ROM Limitations Soft Tissue Tightness,Pain Comments moderate muscle guarding noted during end range ER and IR ( IR is more painful) PT-OP-L Special Tests Start: 12/04/19 08:07 Freq: Status: Active Protocol: Document 12/04/19 09:00 (Rec: 12/04/19 11:56 [email or web address]) Special Tests Cervical Spine Special Tests Spurling's Test Test Results -ve B Foraminal Compression Test Results +ve R Comments with ext/ R rotation at overpressure(radiating pain to top of R shoulder) Shoulder Special Tests Apprehension Test Test Results +VE R Comments decreased in pain with posterior glide of GH during eR and IR, along with increased ROM noted. AC Joint Compression Test Results +ve R IR/Horizontal ADD Impingement Test Results +ve R Comments pressure/ pinching sensation noted Lift-Off Rotator Cuff Test Results +VE R Comments difficulty lift off from back of his hip with c/o R shd pain Belly Press Test Results -ve Drop Arm Rotator Cuff Test Results -ve R Comments Able to hold position pain with resistance Empty Can Test Results +VE Comments pain with resistance PT-OP-M Strength Start: 12/04/19 08:07 Freq: Status: Active Protocol: Document 12/04/19 09:00 (Rec: 12/04/19 11:56 [email or web address]) Shoulder Strength Shoulder Manual Muscle Testing Right Flexion 4 Good Extension 4 Good Abduction (C5) 4- Good- External Rotation 4- Good- Internal Rotation 4- Good- Reason Not Measured Pain Left Flexion 5 Normal Extension 5 Normal Abduction (C5) 5 Normal Adduction 5 Normal External Rotation 5 Normal Internal Rotation 5 Normal PT-OP-Q Treatments Start: 12/04/19 08:07 Freq: Status: Active Protocol: Document 12/18/19 16:10 HH (Rec: 12/18/19 17:03 [email or web address]) Therapeutic Exercises Sidelying Exercises horziontal abd Side right Equipment Used 1lb open book Side right Reps/Minutes 10 x2 shoulder ER Side right Equipment Used 2lbs Reps/Minutes 10 x2 Standing Exercises shd extension Side bilateral Equipment Used level2 Reps/Minutes 8 x2 scap row Standing Exercise Name mid row Side bilateral Equipment Used level 2 Reps/Minutes 8 x2 Comments cues on scap retraction TB pull apart Standing Exercise Name shd horizontal abduction Resistance level 2 Reps/Minutes 8 x2 Manual Therapy Treatment Soft Tissue Mobilization STM Body Location R pec, infraspinatus, Lats Mobilization Type Strumming,Sustained Pressure, Trigger Point Release Intensity/Depth Moderate Body Position Sidelying Comments add subscapularis Joint Mobilizations GH 2 Joint GH joint R Direction inferior posterior glide Grade II Body Position Supine Reps/Duration 10 sec x 8 Comments with horizontal add GH Joint Gh joint (R) Direction post glide Grade II Body Position Supine Reps/Duration 10 sec x 8 Comments during IR and ER self mob with gait belt and DB as well PT-OP-T Assessment and Plan Start: 12/04/19 08:07 Freq: Status: Active Protocol: Document 12/18/19 16:10 HH (Rec: 12/18/19 17:03 [email or web address]) Physical Therapy Assessment Goals pain Impairment +ve on cervical ext/R rot, lift off test, ER/IR, AC joint compression [employer] Experience Strategy Goal (LTG) Pt will be pain free for all special tests (cervical ext/R rot, lift off test, shoulder ER/IR and Ac joint compression ) LTG Duration 8 weeks strength Impairment Pt's R shd strength = 4/5 grossly [employer] Experience Strategy Goal (LTG) Pt will reach 5/5 grossly for all directions and able to carry up to 75 lbs of object at waist level with pain < 2/ 10 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 LTG Duration 8 weeks ROM Impairment Pt's ER= 65 and IR= 54 Short Term Goal (STG) Pt will reach 80 and 80 for ER and IR with shd at 90 degrees . STG Duration 4 weeks Jail Goal (LTG) Pt will reach full range of ER and IR up to 90 without pain so pt can carter/doff clothes without discomfort LTG Duration 8 weeks Quickdash Impairment Pt scores 77.3 (60-79% impairment) on quick dash Short Term Goal (STG) pt will score <40 on Quickdash to improve his functional mobility and strength to improve his quality of lift. STG Duration 4 weeks Jail Goal (LTG) pt will score <20 on Quickdash to improve his functional mobility and strength to improve his quality of lift. LTG Duration 8 weeks Assessment Summary Assessment Improved active ER and IR but cont to have pinching / pressure discomfort during resisted shoulder ER, shoulder ext. Will cont to focus on scap strength and external rotators strengthening Physical Therapy Plan Next Visit Focus/Plan Next Note Type Treatment Note Next Visit Plan ER/IR strengthening scap movement educatoin cervical traction post glide of GH joint mob with movement T/S ext mobility.
--- NOTE | 2019-12-20 15:25 | PT.OTN ---
Current Diagnoses Strain of unspecified muscle, fascia and tendon at shoulder and upper arm level, right arm, initial encounter (12/20/19) Physical Therapy Treatment Note PT-OP-A Visit Information Start: 12/04/19 08:07 Freq: Status: Active Protocol: Document 12/20/19 15:25 DLM (Rec: 12/20/19 15:57 DLM [email or web address]) Out-Patient Physical Therapy Visit Information Visit Information Visit Type Treatment Note Visit Start Time 14:45 Visit Stop Time 15:25 Total Visit Minutes 40 Visit Number 5/16 Number of BOOKING CLERK Visits 0 Evaluation Information Evaluation Date 12/04/19 PT-OP-B Current Condition Start: 12/04/19 08:07 Freq: Status: Active Protocol: Document 12/04/19 09:00 HH (Rec: 12/04/19 08:24 HH [email or web address]) Current Condition History of Current Condition Onset Date Aug, 2019 Current Complaints R shoulder pain, difficulty in overhead activities d/t pain and weakness History of Current Condition Pt is a 23-year-old male daily smoker with history of right shoulder injury presents with a chief complaint of a ongoing and worsening right shoulder pain. He describes his pain as achy and pinching at the superioranterior aspect of R shoulder, along with noticeable weakness that limits him from doing lifting activtiies. He also has difficulty sleeping on his R side d/t pain. His pain is worse with motion and improves with rest. He does have episodes of some tingling going down to his hand (chisholm side 2nd to 4th digits). He had a work related injury earlier in the year and a rotator cuff injury. He had an MRI showing a partial supraspinatus tear and was taken to the OR by local orthopedics for a orthroscopic surgery on May 01/2018. He received physical therapy service at [facility] in the summer of 2018. He had been doing fine well until August when he was stretching any felt a pop in his shoulder and has worsening pain since then. He is still doing his HEP from previous PT which includes SL ABD, supine flexion, SL ER and wall slide to maintain his ROM but no strengthening ex. He also reports he switched his ortho Dr from Dr. Schumacher to Dr. Franco who believes that pt would be benefit from participating work conditioning from PT before any surgical approach. 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 Pt has been out of work from a year now d/t his injury Prior Treatments and Tests MRI at R shoulder= Low-grade bursal surface irregularity of the supraspinatus and infraspinatus tendons, potentially postsurgical appearance and/or fraying. No full-thickness tear identified . No articular sided tear seen . Adjacent mild subacromial- subdeltoid bursitis. No labral tear. Cervical MRI= 1. Preservation of disc height and disc signal throughout the cervical spine. 2. Moderate neuroforaminal stenosis on the right at C3-4 and on the left at C4-5. Severe right neuroforaminal narrowing at C3-4. 3. No canal stenosis, cord signal abnormality, or deformity of the cord. Future Testing and Treatments Planned f/u appt with Dr. Rizvi on Dec 18 Treatment Goals Patient/Caregiver Goals 1. To be pain free for entire ROM of R shoulder 2. To strengthening his shoulder musculature 3. To fully return to work and able to carry 50-75% objects without discomfort Prior Functional Status Baseline Function- ADL's Independent Baseline Function- Mobility Independent Baseline Function- Work/School work that requires active lifting, pushing and pulling Baseline Function- Recreation/Hobbies no limitation in any activities that requires overhead movements Current Functional Impairments (Reported) Functional Limitations- ADL's Pain during carter/doff clothes (D2 flexion and reach behind his back) Functional Limitations- Work/School Unable to work since a year ago. Unable to lift things >20 lb d/t pain Personal Factors Other Personal Factors That May Effect current smoker Therapy/Recovery PT-OP-C Subjective Start: 12/04/19 08:07 Freq: Status: Active Protocol: Document 12/20/19 15:25 DLM (Rec: 12/20/19 15:57 DLM [email or web address]) OP-PT Subjective Patient Comments Patient Comments His pain continues to be at 6. 5/10 today in right shoulder. He does his exercises regularly at home. Patient Reported Progress Improving OP-PT Pain Assessment Location R shoulder Pain Location Details anterior shoulder Intensity 6 Scale Used Numeric (1 - 10) Description Aching Pain Aggravating Factors Lifting Other Pain Aggravating Factors bring arm backwards Pain Alleviating Factors Cold,Rest PT-OP-E Functional Tests Start: 12/04/19 08:07 Freq: Status: Active Protocol: Document 12/04/19 09:00 (Rec: 12/04/19 11:56 [email or web address]) Functional Tests Apley's Scratch Test Action 2- Left T4 Action 2- Right T2 Action 3- Left T4 SP Action 3- Right L scap inf pole PT-OP-F Manual Assessment Start: 12/04/19 08:07 Freq: Status: Active Protocol: Document 12/04/19 09:00 (Rec: 12/04/19 11:56 [email or web address]) Manual Assessments Other Manual Assessments Other Manual Assessments GH head anterior shift during R shoulder extension PT-OP-K Range of Motion Start: 12/04/19 08:07 Freq: Status: Active Protocol: Document 12/04/19 09:00 (Rec: 12/04/19 11:56 [email or web address]) Shoulder Goniometric Range of Motion Shoulder Left Active Shoulder ROM WFL Yes Testing Position Standing Flexion 160 Extension 150 External Rotation at 90 degrees 80 Abduction Internal Rotation 90 Right Active Shoulder ROM WFL Yes Testing Position Standing Flexion 160 Extension 65 Abduction 150 External Rotation at 90 degrees 65 Abduction Internal Rotation 54 Shoulder ROM Limitations Shoulder ROM Limitations Soft Tissue Tightness,Pain Comments moderate muscle guarding noted during end range ER and IR ( IR is more painful) PT-OP-L Special Tests Start: 12/04/19 08:07 Freq: Status: Active Protocol: Document 12/04/19 09:00 (Rec: 12/04/19 11:56 [email or web address]) Special Tests Cervical Spine Special Tests Spurling's Test Test Results -ve B Foraminal Compression Test Results +ve R Comments with ext/ R rotation at overpressure(radiating pain to top of R shoulder) Shoulder Special Tests Apprehension Test Test Results +VE R Comments decreased in pain with posterior glide of GH during eR and IR, along with increased ROM noted. AC Joint Compression Test Results +ve R IR/Horizontal ADD Impingement Test Results +ve R Comments pressure/ pinching sensation noted Lift-Off Rotator Cuff Test Results +VE R Comments difficulty lift off from back of his hip with c/o R shd pain Belly Press Test Results -ve Drop Arm Rotator Cuff Test Results -ve R Comments Able to hold position pain with resistance Empty Can Test Results +VE Comments pain with resistance PT-OP-M Strength Start: 01/07/20 08:07 Freq: Status: Active Protocol: Document 12/04/19 09:00 HH (Rec: 12/04/19 11:56 HH [email or web address]) Shoulder Strength Shoulder Manual Muscle Testing Right Flexion 4 Good Extension 4 Good Abduction (C5) 4- Good- External Rotation 4- Good- Internal Rotation 4- Good- Reason Not Measured Pain Left Flexion 5 Normal Extension 5 Normal Abduction (C5) 5 Normal Adduction 5 Normal External Rotation 5 Normal Internal Rotation 5 Normal PT-OP-Q Treatments Start: 12/04/19 08:07 Freq: Status: Active Protocol: Document 12/20/19 15:25 DLM (Rec: 12/20/19 15:57 DLM [email or web address]) Therapeutic Exercises Sidelying Exercises horziontal abd Side right Equipment Used 1lb Reps/Minutes 10 reps open book Side right Reps/Minutes 10 reps shoulder ER Sidelying Exercise Name partial range to manage pain Side right Equipment Used 2lbs Reps/Minutes 10 Comments with roll under elbow, increased pain after 7 reps Standing Exercises shd extension Side bilateral Equipment Used level2 Reps/Minutes 2 x 10 reps scap row Standing Exercise Name mid row Side bilateral Equipment Used level 2 Reps/Minutes 2 x 10 reps Comments cues on scap retraction GH IR Standing Exercise Name with scap retraction Side right Reps/Minutes 10 reps Comments hand behind back with scap retraction 2 Standing Exercise Name GH external rotation Resistance L2 exercise band Reps/Minutes 10 reps Comments manual stabalization in retracted position 1 Standing Exercise Name Doorway Pectoralis stretch Side bilateral Reps/Minutes 20 sec hold x 4 reps Manual Therapy Treatment Soft Tissue Mobilization STM Body Location R pec, infraspinatus, Lats Mobilization Type Strumming,Sustained Pressure, Trigger Point Release Intensity/Depth Moderate Body Position Sidelying Comments and UT Joint Mobilizations GH 2 Joint GH joint R Direction inferior & posterior glides Grade II Body Position Supine PT-OP-T Assessment and Plan Start: 12/04/19 08:07 Freq: Status: Active Protocol: Document 12/20/19 15:25 DLM (Rec: 12/20/19 15:57 DLM [email or web address]) Physical Therapy Assessment Goals pain Impairment +ve on cervical ext/R rot, lift off test, ER/IR, AC joint compression Tie Presser Goal (LTG) Pt will be pain free for all special tests (cervical ext/R rot, lift off test, shoulder ER/IR and Ac joint compression ) LTG Duration 8 weeks strength Impairment Pt's R shd strength = 4/5 grossly Custodial Goal (LTG) Pt will reach 5/5 grossly for all directions and able to carry up to 75 lbs of object at waist level with pain < 2/ 10 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 LTG Duration 8 weeks ROM Impairment Pt's ER= 65 and IR= 54 Short Term Goal (STG) Pt will reach 80 and 80 for ER and IR with shd at 90 degrees . STG Duration 4 weeks Tie Presser Goal (LTG) Pt will reach full range of ER and IR up to 90 without pain so pt can carter/doff clothes without discomfort LTG Duration 8 weeks Quickdash Impairment Pt scores 77.3 (60-79% impairment) on quick dash Short Term Goal (STG) pt will score <40 on Quickdash to improve his functional mobility and strength to improve his quality of lift. STG Duration 4 weeks Custodial Goal (LTG) pt will score <20 on Quickdash to improve his functional mobility and strength to improve his quality of lift. LTG Duration 8 weeks Four Impairment NO HEP in place Tie Presser Goal (LTG) Patient will perform HEP (Home exercise program) independently LTG Duration Met Three Impairment Impaired shoulder strength Tie Presser Goal (LTG) Patient will increase shoulder ABD/F/ER strength by 1/2 grade for arm functional use. LTG Duration 4 wks Two Impairment Impaired left shoulder ROM Custodial Goal (LTG) Patient will increase left shoulder flexion/ABD/ER AROM to functional range to enhance shoulder functional mobility LTG Duration Met One Impairment quick Dash functional UE score of 90 Custodial Goal (LTG) Patient will have Quick [place] functional score of < 35 LTG Duration 4 wks Progress Towards Goals Progress Towards Goals Slow Progress due to Activity Tolerance Assessment Summary Assessment He tolerated treatment well over-all with modifications of some exercises to minimize irritation/pain. He continues to have an excessive anterior glide of GH joint during functional motions. Able to decrease his pain with therapist manually stabalizing the GH joint during active motions. Pt reports he ices his shoulder regularly at home . Less soft tisse tightness after manual therapy this visit. Physical Therapy Plan Frequency and Duration Frequency of Treatment 2x/Week Duration of Treatment 8 weeks Plan of Care Start Date 12/04/19 Plan of Care End Date 02/02/20 Therapeutic Interventions Therapeutic Interventions Balance Training,Home Exercise Program,Joint Mobilizations, Manual Therapy,Neuromuscular Re-education,Patient/Caregiver Education,Self-Care/Home Management,Soft Tissue Mobilization,Taping, Therapeutic Activities, Therapeutic Exercises Modalities Cold Pack/Ice Massage,Electric Stimulation,Hot Packs, Traction- Mechanical, Ultrasound Next Visit Focus/Plan Next Note Type Treatment Note Next Visit Plan continue strengthening in GH neutral position
--- NOTE | 2019-12-25 14:57 | PT.OTN ---
Current Diagnoses Strain of unspecified muscle, fascia and tendon at shoulder and upper arm level, right arm, initial encounter (12/25/19) Physical Therapy Treatment Note PT-OP-A Visit Information Start: 12/04/19 08:07 Freq: Status: Active Protocol: Document 12/25/19 11:17 HH (Rec: 12/25/19 14:57 HH [email or web address]) Out-Patient Physical Therapy Visit Information Visit Information Visit Type Treatment Note Visit Start Time 11:16 Visit Stop Time 12:00 Total Visit Minutes 44 Visit Number 05/13 Number of MEAT WRAPPER Visits 0 PT-OP-B Current Condition Start: 12/04/19 08:07 Freq: Status: Active Protocol: Document 12/04/19 09:00 HH (Rec: 12/04/19 08:24 HH [email or web address]) Current Condition History of Current Condition Onset Date Aug, 2019 Current Complaints R shoulder pain, difficulty in overhead activities d/t pain and weakness History of Current Condition Pt is a 23-year-old male daily smoker with history of right shoulder injury presents with a chief complaint of a ongoing and worsening right shoulder pain. He describes his pain as achy and pinching at the superioranterior aspect of R shoulder, along with noticeable weakness that limits him from doing lifting activtiies. He also has difficulty sleeping on his R side d/t pain. His pain is worse with motion and improves with rest. He does have episodes of some tingling going down to his hand (chisholm side 2nd to 4th digits). He had a work related injury earlier in the year and a rotator cuff injury. He had an MRI showing a partial supraspinatus tear and was taken to the OR by local orthopedics for a orthroscopic surgery on May 01/2018. He received physical therapy service at [facility] in the summer of 2018. He had been doing fine well until August when he was stretching any felt a pop in his shoulder and has worsening pain since then. He is still doing his HEP from previous PT which includes SL ABD, supine flexion, SL ER and wall slide to maintain his ROM but no strengthening ex. He also reports he switched his ortho Dr from Dr. Schumacher to Dr. Franco who believes that pt would be benefit from participating work conditioning from PT before any surgical approach. 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 Pt has been out of work from a year now d/t his injury Prior Treatments and Tests MRI at R shoulder= Low-grade bursal surface irregularity of the supraspinatus and infraspinatus tendons, potentially postsurgical appearance and/or fraying. No full-thickness tear identified . No articular sided tear seen . Adjacent mild subacromial- subdeltoid bursitis. No labral tear. Cervical MRI= 1. Preservation of disc height and disc signal throughout the cervical spine. 2. Moderate neuroforaminal stenosis on the right at C3-4 and on the left at C4-5. Severe right neuroforaminal narrowing at C3-4. 3. No canal stenosis, cord signal abnormality, or deformity of the cord. Future Testing and Treatments Planned f/u appt with Dr. Rizvi on Dec 18 Treatment Goals Patient/Caregiver Goals 1. To be pain free for entire ROM of R shoulder 2. To strengthening his shoulder musculature 3. To fully return to work and able to carry 50-75% objects without discomfort Prior Functional Status Baseline Function- ADL's Independent Baseline Function- Mobility Independent Baseline Function- Work/School work that requires active lifting, pushing and pulling Baseline Function- Recreation/Hobbies no limitation in any activities that requires overhead movements Current Functional Impairments (Reported) Functional Limitations- ADL's Pain during carter/doff clothes (D2 flexion and reach behind his back) Functional Limitations- Work/School Unable to work since a year ago. Unable to lift things >20 lb d/t pain Personal Factors Other Personal Factors That May Effect current smoker Therapy/Recovery PT-OP-C Subjective Start: 12/04/19 08:07 Freq: Status: Active Protocol: Document 12/25/19 11:17 HH (Rec: 12/25/19 14:57 [email or web address]) OP-PT Subjective Patient Comments Patient Comments I went to see Dr. Franco today and he suggested to have surgery for acromion decompression and possible clean up from previous sx but cont PT at this point. My shoulder hurts 8/10 today after his assessment but overall 7/10 since last week. Patient Reported Progress Same PT-OP-E Functional Tests Start: 12/04/19 08:07 Freq: Status: Active Protocol: Document 12/04/19 09:00 HH (Rec: 12/04/19 11:56 [email or web address]) Functional Tests Apley's Scratch Test Action 2- Left T4 Action 2- Right T2 Action 3- Left T4 SP Action 3- Right L scap inf pole PT-OP-F Manual Assessment Start: 12/04/19 08:07 Freq: Status: Active Protocol: Document 12/04/19 09:00 (Rec: 12/04/19 11:56 [email or web address]) Manual Assessments Other Manual Assessments Other Manual Assessments GH head anterior shift during R shoulder extension PT-OP-K Range of Motion Start: 12/04/19 08:07 Freq: Status: Active Protocol: Document 12/04/19 09:00 (Rec: 12/04/19 11:56 [email or web address]) Shoulder Goniometric Range of Motion Shoulder Left Active Shoulder ROM WFL Yes Testing Position Standing Flexion 160 Extension 150 External Rotation at 90 degrees 80 Abduction Internal Rotation 90 Right Active Shoulder ROM WFL Yes Testing Position Standing Flexion 160 Extension 65 Abduction 150 External Rotation at 90 degrees 65 Abduction Internal Rotation 54 Shoulder ROM Limitations Shoulder ROM Limitations Soft Tissue Tightness,Pain Comments moderate muscle guarding noted during end range ER and IR ( IR is more painful) PT-OP-L Special Tests Start: 12/04/19 08:07 Freq: Status: Active Protocol: Document 12/04/19 09:00 (Rec: 12/04/19 11:56 [email or web address]) Special Tests Cervical Spine Special Tests Spurling's Test Test Results -ve B Foraminal Compression Test Results +ve R Comments with ext/ R rotation at overpressure(radiating pain to top of R shoulder) Shoulder Special Tests Apprehension Test Test Results +VE R Comments decreased in pain with posterior glide of GH during eR and IR, along with increased ROM noted. AC Joint Compression Test Results +ve R IR/Horizontal ADD Impingement Test Results +ve R Comments pressure/ pinching sensation noted Lift-Off Rotator Cuff Test Results +VE R Comments difficulty lift off from back of his hip with c/o R shd pain Belly Press Test Results -ve Drop Arm Rotator Cuff Test Results -ve R Comments Able to hold position pain with resistance Empty Can Test Results +VE Comments pain with resistance PT-OP-M Strength Start: 12/04/19 08:07 Freq: Status: Active Protocol: Document 12/04/19 09:00 (Rec: 12/04/19 11:56 [email or web address]) Shoulder Strength Shoulder Manual Muscle Testing Right Flexion 4 Good Extension 4 Good Abduction (C5) 4- Good- External Rotation 4- Good- Internal Rotation 4- Good- Reason Not Measured Pain Left Flexion 5 Normal Extension 5 Normal Abduction (C5) 5 Normal Adduction 5 Normal External Rotation 5 Normal Internal Rotation 5 Normal PT-OP-Q Treatments Start: 12/04/19 08:07 Freq: Status: Active Protocol: Document 12/25/19 11:17 (Rec: 12/25/19 14:57 [email or web address]) Therapeutic Exercises Supine Exercises T-spine extension Equipment Used with foam roller Reps/Minutes 8 mins Sidelying Exercises horziontal abd Side right Equipment Used 1lb Reps/Minutes 10 reps open book Side right Reps/Minutes 10 reps shoulder ER Sidelying Exercise Name partial range to manage pain Side right Equipment Used 2lbs Reps/Minutes 10 Comments with roll under elbow, increased pain after 7 reps Sitting Exercises seated GH inf glide Side right Equipment Used belt Comments joint mob for HEP Standing Exercises shd extension Side bilateral Equipment Used level2 Reps/Minutes 2 x 10 reps GH IR Standing Exercise Name with scap retraction Side right Reps/Minutes 10 reps Comments hand behind back with scap retraction Manual Therapy Treatment Soft Tissue Mobilization STM Body Location R pec, infraspinatus, Lats Mobilization Type Strumming,Sustained Pressure, Trigger Point Release Intensity/Depth Moderate Body Position Sidelying Comments and UT Joint Mobilizations GH 2 Joint GH joint R Direction inferior Grade II Body Position Supine Reps/Duration 10 sec x 8 GH Joint Gh joint (R) Direction post glide Grade II Body Position Supine Reps/Duration 10 sec x 8 Comments during IR and ER self mob with gait belt and DB as well PT-OP-T Assessment and Plan Start: 12/04/19 08:07 Freq: Status: Active Protocol: Document 12/25/19 11:17 (Rec: 12/25/19 14:57 [email or web address]) Physical Therapy Assessment Goals pain Impairment +ve on cervical ext/R rot, lift off test, ER/IR, AC joint compression [facility] Goal (LTG) Pt will be pain free for all special tests (cervical ext/R rot, lift off test, shoulder ER/IR and Ac joint compression ) LTG Duration 8 weeks strength Impairment Pt's R shd strength = 4/5 grossly [facility] Goal (LTG) Pt will reach 5/5 grossly for all directions and able to carry up to 75 lbs of object at waist level with pain < 2/ 10 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 LTG Duration 8 weeks ROM Impairment Pt's ER= 65 and IR= 54 Short Term Goal (STG) Pt will reach 80 and 80 for ER and IR with shd at 90 degrees . STG Duration 4 weeks Quill Machine Operator Goal (LTG) Pt will reach full range of ER and IR up to 90 without pain so pt can carter/doff clothes without discomfort LTG Duration 8 weeks Quickdash Impairment Pt scores 77.3 (60-79% impairment) on quick dash Short Term Goal (STG) pt will score <40 on Quickdash to improve his functional mobility and strength to improve his quality of lift. STG Duration 4 weeks [facility] Goal (LTG) pt will score <20 on Quickdash to improve his functional mobility and strength to improve his quality of lift. LTG Duration 8 weeks Assessment Summary Assessment Pt's ER reaches 80-90 degrees actively without discomfort today but have pain with IR. However, his pain subside after inferior glide. Will cont improve his GH mobility as priority followed stability and strengthening training. Physical Therapy Plan Next Visit Focus/Plan Next Note Type Treatment Note Next Visit Plan GH inferior/ post glide T/S ext and rotation continue strengthening in GH neutral position
--- NOTE | 2020-01-01 18:15 | PT.OTN ---
Current Diagnoses Strain of unspecified muscle, fascia and tendon at shoulder and upper arm level, right arm, initial encounter (01/01/20) Physical Therapy Treatment Note PT-OP-A Visit Information Start: 12/04/19 08:07 Freq: Status: Active Protocol: Document 01/01/20 14:34 HH (Rec: 01/01/20 18:14 HH [email or web address]) Out-Patient Physical Therapy Visit Information Visit Information Visit Type Treatment Note Visit Start Time 14:34 Visit Stop Time 15:15 Total Visit Minutes 41 Visit Number 7/16 Number of PEDIATRIC OPHTHALMOLOGIST Visits 0 PT-OP-B Current Condition Start: 12/04/19 08:07 Freq: Status: Active Protocol: Document 12/04/19 09:00 HH (Rec: 12/04/19 08:24 HH [email or web address]) Current Condition History of Current Condition Onset Date Aug, 2019 Current Complaints R shoulder pain, difficulty in overhead activities d/t pain and weakness History of Current Condition Pt is a 23-year-old male daily smoker with history of right shoulder injury presents with a chief complaint of a ongoing and worsening right shoulder pain. He describes his pain as achy and pinching at the superioranterior aspect of R shoulder, along with noticeable weakness that limits him from doing lifting activtiies. He also has difficulty sleeping on his R side d/t pain. His pain is worse with motion and improves with rest. He does have episodes of some tingling going down to his hand (chisholm side 2nd to 4th digits). He had a work related injury earlier in the year and a rotator cuff injury. He had an MRI showing a partial supraspinatus tear and was taken to the OR by local orthopedics for a orthroscopic surgery on May 01/2018. He received physical therapy service at [facility] in the summer of 2018. He had been doing fine well until August when he was stretching any felt a pop in his shoulder and has worsening pain since then. He is still doing his HEP from previous PT which includes SL ABD, supine flexion, SL ER and wall slide to maintain his ROM but no strengthening ex. He also reports he switched his ortho Dr from Dr. Schumacher to Dr. Franco who believes that pt would be benefit from participating work conditioning from PT before any surgical approach. 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 Pt has been out of work from a year now d/t his injury Prior Treatments and Tests MRI at R shoulder= Low-grade bursal surface irregularity of the supraspinatus and infraspinatus tendons, potentially postsurgical appearance and/or fraying. No full-thickness tear identified . No articular sided tear seen . Adjacent mild subacromial- subdeltoid bursitis. No labral tear. Cervical MRI= 1. Preservation of disc height and disc signal throughout the cervical spine. 2. Moderate neuroforaminal stenosis on the right at C3-4 and on the left at C4-5. Severe right neuroforaminal narrowing at C3-4. 3. No canal stenosis, cord signal abnormality, or deformity of the cord. Future Testing and Treatments Planned f/u appt with Dr. Rizvi on Dec 18 Treatment Goals Patient/Caregiver Goals 1. To be pain free for entire ROM of R shoulder 2. To strengthening his shoulder musculature 3. To fully return to work and able to carry 50-75% objects without discomfort Prior Functional Status Baseline Function- ADL's Independent Baseline Function- Mobility Independent Baseline Function- Work/School work that requires active lifting, pushing and pulling Baseline Function- Recreation/Hobbies no limitation in any activities that requires overhead movements Current Functional Impairments (Reported) Functional Limitations- ADL's Pain during carter/doff clothes (D2 flexion and reach behind his back) Functional Limitations- Work/School Unable to work since a year ago. Unable to lift things >20 lb d/t pain Personal Factors Other Personal Factors That May Effect current smoker Therapy/Recovery PT-OP-C Subjective Start: 12/04/19 08:07 Freq: Status: Active Protocol: Document 01/01/20 14:34 HH (Rec: 01/01/20 18:14 [email or web address]) OP-PT Subjective Patient Comments Patient Comments My pain has been at 7-7.5/10. My ER and IR are doing great now because of the ex but it still hurts at end range for OH activities/ lifting my arm up from the side. Patient Reported Progress Same PT-OP-E Functional Tests Start: 12/04/19 08:07 Freq: Status: Active Protocol: Document 12/04/19 09:00 HH (Rec: 12/04/19 11:56 [email or web address]) Functional Tests Domingoey's Scratch Test Action 2- Left T4 Action 2- Right T2 Action 3- Left T4 SP Action 3- Right L scap inf pole PT-OP-F Manual Assessment Start: 12/04/19 08:07 Freq: Status: Active Protocol: Document 12/04/19 09:00 (Rec: 12/04/19 11:56 [email or web address]) Manual Assessments Other Manual Assessments Other Manual Assessments GH head anterior shift during R shoulder extension PT-OP-K Range of Motion Start: 12/04/19 08:07 Freq: Status: Active Protocol: Document 12/04/19 09:00 (Rec: 12/04/19 11:56 [email or web address]) Shoulder Goniometric Range of Motion Shoulder Left Active Shoulder ROM WFL Yes Testing Position Standing Flexion 160 Extension 150 External Rotation at 90 degrees 80 Abduction Internal Rotation 90 Right Active Shoulder ROM WFL Yes Testing Position Standing Flexion 160 Extension 65 Abduction 150 External Rotation at 90 degrees 65 Abduction Internal Rotation 54 Shoulder ROM Limitations Shoulder ROM Limitations Soft Tissue Tightness,Pain Comments moderate muscle guarding noted during end range ER and IR ( IR is more painful) PT-OP-L Special Tests Start: 12/04/19 08:07 Freq: Status: Active Protocol: Document 12/04/19 09:00 (Rec: 12/04/19 11:56 [email or web address]) Special Tests Cervical Spine Special Tests Spurling's Test Test Results -ve B Foraminal Compression Test Results +ve R Comments with ext/ R rotation at overpressure(radiating pain to top of R shoulder) Shoulder Special Tests Apprehension Test Test Results +VE R Comments decreased in pain with posterior glide of GH during eR and IR, along with increased ROM noted. AC Joint Compression Test Results +ve R IR/Horizontal ADD Impingement Test Results +ve R Comments pressure/ pinching sensation noted Lift-Off Rotator Cuff Test Results +VE R Comments difficulty lift off from back of his hip with c/o R shd pain Belly Press Test Results -ve Drop Arm Rotator Cuff Test Results -ve R Comments Able to hold position pain with resistance Empty Can Test Results +VE Comments pain with resistance PT-OP-M Strength Start: 12/04/19 08:07 Freq: Status: Active Protocol: Document 12/04/19 09:00 (Rec: 12/04/19 11:56 [email or web address]) Shoulder Strength Shoulder Manual Muscle Testing Right Flexion 4 Good Extension 4 Good Abduction (C5) 4- Good- External Rotation 4- Good- Internal Rotation 4- Good- Reason Not Measured Pain Left Flexion 5 Normal Extension 5 Normal Abduction (C5) 5 Normal Adduction 5 Normal External Rotation 5 Normal Internal Rotation 5 Normal PT-OP-Q Treatments Start: 12/04/19 08:07 Freq: Status: Active Protocol: Document 01/01/20 14:34 (Rec: 01/01/20 18:14 [email or web address]) Therapeutic Exercises Supine Exercises scap punch Side right Reps/Minutes 10 x 2 T-spine extension Equipment Used with foam roller Reps/Minutes 5 mins Sidelying Exercises horziontal abd Side right Equipment Used 1lb Reps/Minutes 8 x2 reps shoulder ER Sidelying Exercise Name full range Side right Equipment Used no weight Reps/Minutes 10 Comments denies pain Standing Exercises TB pull apart Standing Exercise Name pull apart then with shd flexion Side bilateral Equipment Used yellow band at wrist Reps/Minutes 8 x 3 Comments c/o shd pain GH IR Standing Exercise Name with scap retraction Side right Reps/Minutes 10 reps Comments hand behind back with scap retraction Manual Therapy Treatment Soft Tissue Mobilization STM Body Location R pec, infraspinatus Mobilization Type Strumming,Sustained Pressure, Trigger Point Release Intensity/Depth Deep Body Position Sidelying Joint Mobilizations GH 2 Joint GH joint R Direction inferior Grade II Body Position Supine Reps/Duration 10 sec x 8 GH Joint Gh joint (R) Direction post glide Grade II Body Position Supine Reps/Duration 10 sec x 8 Comments during IR and ER PT-OP-T Assessment and Plan Start: 12/04/19 08:07 Freq: Status: Active Protocol: Document 01/01/20 14:34 (Rec: 01/01/20 18:14 [email or web address]) Physical Therapy Assessment Goals pain Impairment +ve on cervical ext/R rot, lift off test, ER/IR, AC joint compression Converter Supervisor Goal (LTG) Pt will be pain free for all special tests (cervical ext/R rot, lift off test, shoulder ER/IR and Ac joint compression ) LTG Duration 8 weeks strength Impairment Pt's R shd strength = 4/5 grossly Converter Supervisor Goal (LTG) Pt will reach 5/5 grossly for all directions and able to carry up to 75 lbs of object at waist level with pain < 2/ 10 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 LTG Duration 8 weeks ROM Impairment Pt's ER= 65 and IR= 54 Short Term Goal (STG) Pt will reach 80 and 80 for ER and IR with shd at 90 degrees . STG Duration 4 weeks [facility] Goal (LTG) Pt will reach full range of ER and IR up to 90 without pain so pt can carter/doff clothes without discomfort LTG Duration 8 weeks Quickdash Impairment Pt scores 77.3 (60-79% impairment) on quick dash Short Term Goal (STG) pt will score <40 on Quickdash to improve his functional mobility and strength to improve his quality of lift. STG Duration 4 weeks [facility] Goal (LTG) pt will score <20 on Quickdash to improve his functional mobility and strength to improve his quality of lift. LTG Duration 8 weeks Four Impairment NO HEP in place [facility] Goal (LTG) Patient will perform HEP (Home exercise program) independently LTG Duration Met Assessment Summary Assessment Pt's active IR and ER in supine reaches WFL today without discomfort, but c/o pain at end range of IR. Pt cont to have significant pain for abd/ shd flexion at end range. Will cont improve his GH mobility as priority followed stability and strengthening training. Physical Therapy Plan Next Visit Focus/Plan Next Note Type Treatment Note Next Visit Plan reassess cervical movement GH inferior/ post glide T/S ext and rotation continue strengthening in GH neutral position gravity eliminated position.
--- NOTE | 2020-01-03 17:53 | PT.OTN ---
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 He describes his pain as achy and pinching at the superioranterior aspect of R shoulder, along with noticeable weakness that limits him from doing lifting activtiies. He also has difficulty sleeping on his R side d/t pain. His pain is worse with motion and improves with rest. He does have episodes of some tingling going down to his hand (chisholm side 2nd to 4th digits). He had a work related injury earlier in the year and a rotator cuff injury. He had an MRI showing a partial supraspinatus tear and was taken to the OR by local orthopedics for a orthroscopic surgery on May 01/2018. He received physical therapy service at [facility] in the summer of 2018. He had been doing fine well until August when he was stretching any felt a pop in his shoulder and has worsening pain since then. He is still doing his HEP from previous PT which includes SL ABD, supine flexion, SL ER and wall slide to maintain his ROM but no strengthening ex. He also reports he switched his ortho Dr from Dr. Schumacher to Dr. Franco who believes that pt would be benefit from participating work conditioning from PT before any surgical approach. 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 Pt has been out of work from a year now d/t his injury Prior Treatments and Tests MRI at R shoulder= Low-grade bursal surface irregularity of the supraspinatus and infraspinatus tendons, potentially postsurgical appearance and/or fraying. No full-thickness tear identified . No articular sided tear seen . Adjacent mild subacromial- subdeltoid bursitis. No labral tear. Cervical MRI= 1. Preservation of disc height and disc signal throughout the cervical spine. 2. Moderate neuroforaminal stenosis on the right at C3-4 and on the left at C4-5. Severe right neuroforaminal narrowing at C3-4. 3. No canal stenosis, cord signal abnormality, or deformity of the cord. Future Testing and Treatments Planned f/u appt with Dr. Rizvi on Dec 18 Treatment Goals Patient/Caregiver Goals 1. To be pain free for entire ROM of R shoulder 2. To strengthening his shoulder musculature 3. To fully return to work and able to carry 50-75% objects without discomfort Prior Functional Status Baseline Function- ADL's Independent Baseline Function- Mobility Independent Baseline Function- Work/School work that requires active lifting, pushing and pulling Baseline Function- Recreation/Hobbies no limitation in any activities that requires overhead movements Current Functional Impairments (Reported) Functional Limitations- ADL's Pain during carter/doff clothes (D2 flexion and reach behind his back) Functional Limitations- Work/School Unable to work since a year ago. 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 Patient Reported Progress Same PT-OP-E Functional Tests Start: 12/04/19 08:07 Freq: Status: Active Protocol: Document 12/04/19 09:00 HH (Rec: 12/04/19 11:56 [email or web address]) Functional Tests Domingoey's Scratch Test Action 2- Left T4 Action 2- Right T2 Action 3- Left T4 SP Action 3- Right L scap inf pole PT-OP-F Manual Assessment Start: 12/04/19 08:07 Freq: Status: Active Protocol: Document 12/04/19 09:00 (Rec: 12/04/19 11:56 [email or web address]) Manual Assessments Other Manual Assessments Other Manual Assessments GH head anterior shift during R shoulder extension PT-OP-K Range of Motion Start: 12/04/19 08:07 Freq: Status: Active Protocol: Document 12/04/19 09:00 (Rec: 12/04/19 11:56 [email or web address]) Shoulder Goniometric Range of Motion Shoulder Left Active Shoulder ROM WFL Yes Testing Position Standing Flexion 160 Extension 150 External Rotation at 90 degrees 80 Abduction Internal Rotation 90 Right Active Shoulder ROM WFL Yes Testing Position Standing Flexion 160 Extension 65 Abduction 150 External Rotation at 90 degrees 65 Abduction Internal Rotation 54 Shoulder ROM Limitations Shoulder ROM Limitations Soft Tissue Tightness,Pain Comments moderate muscle guarding noted during end range ER and IR ( IR is more painful) PT-OP-L Special Tests Start: 12/04/19 08:07 Freq: Status: Active Protocol: Document 12/04/19 09:00 (Rec: 12/04/19 11:56 [email or web address]) Special Tests Cervical Spine Special Tests Spurling's Test Test Results -ve B Foraminal Compression Test Results +ve R Comments with ext/ R rotation at overpressure(radiating pain to top of R shoulder) Shoulder Special Tests Apprehension Test Test Results +VE R Comments decreased in pain with posterior glide of GH during eR and IR, along with increased ROM noted. AC Joint Compression Test Results +ve R IR/Horizontal ADD Impingement Test Results +ve R Comments pressure/ pinching sensation noted Lift-Off Rotator Cuff Test Results +VE R Comments difficulty lift off from back of his hip with c/o R shd pain Belly Press Test Results -ve Drop Arm Rotator Cuff Test Results -ve R Comments Able to hold position pain with resistance Empty Can Test Results +VE Comments pain with resistance PT-OP-M Strength Start: 12/04/19 08:07 Freq: Status: Active Protocol: Document 12/04/19 09:00 (Rec: 12/04/19 11:56 [email or web address]) Shoulder Strength Shoulder Manual Muscle Testing Right Flexion 4 Good Extension 4 Good Abduction (C5) 4- Good- External Rotation 4- Good- Internal Rotation 4- Good- Reason Not Measured Pain Left Flexion 5 Normal Extension 5 Normal Abduction (C5) 5 Normal Adduction 5 Normal External Rotation 5 Normal Internal Rotation 5 Normal PT-OP-Q Treatments Start: 12/04/19 08:07 Freq: Status: Active Protocol: Document 01/03/20 15:16 (Rec: 01/03/20 17:53 [id number]) Therapeutic Exercises Supine Exercises shd IR ER Side right Equipment Used 1-2 lbs DB Comments slow full AROM, before pain threshold Prone Exercises scap push up Side bilateral Reps/Minutes 2 mins Comments cat camel position Sitting Exercises seated T/S ext Sitting Exercise Name on a chair Side bilateral Equipment Used 4 Reps/Minutes 1 Standing Exercises shd extension Standing Exercise Name mid range Side bilateral Equipment Used level2 Reps/Minutes 2 x 10 reps TB pull apart Standing Exercise Name with elbow bent (shd ER) Side bilateral Equipment Used level 3 Reps/Minutes 8 x 3 Comments up to pain threshold Manual Therapy Treatment Soft Tissue Mobilization R serratus anterior Mobilization Type Sustained Pressure,Trigger Point Release Intensity/Depth Moderate Body Position Sidelying R lat Mobilization Type Sustained Pressure,Trigger Point Release Intensity/Depth Moderate Body Position Sidelying STM Body Location R pec, infraspinatus Mobilization Type Strumming,Sustained Pressure, Trigger Point Release Intensity/Depth Deep Body Position Sidelying Joint Mobilizations GH 2 Joint GH joint R Direction inferior Grade II Body Position Supine Reps/Duration 10 sec x 8 GH Joint Gh joint (R) Direction post glide Grade II Body Position Supine Reps/Duration 10 sec x 8 Comments during IR and ER PT-OP-T Assessment and Plan Start: 12/04/19 08:07 Freq: Status: Active Protocol: Document 01/03/20 15:16 (Rec: 01/03/20 17:53 [id number]) Physical Therapy Assessment Goals strength Impairment Pt's R shd strength = 4/5 grossly Nursing Home Goal (LTG) Pt will reach 5/5 grossly for all directions and able to carry up to 75 lbs of object at waist level with pain < 2/ 10 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 LTG Duration 8 weeks ROM Impairment Pt's ER= 65 and IR= 54 Short Term Goal (STG) Pt will reach 80 and 80 for ER and IR with shd at 90 degrees . STG Duration 4 weeks Nursing Home Goal (LTG) Pt will reach full range of ER and IR up to 90 without pain so pt can carter/doff clothes without discomfort LTG Duration 8 weeks Quickdash Impairment Pt scores 77.3 (60-79% impairment) on quick dash Short Term Goal (STG) pt will score <40 on Quickdash to improve his functional mobility and strength to improve his quality of lift. STG Duration 4 weeks Nursing Home Goal (LTG) pt will score <20 on Quickdash to improve his functional mobility and strength to improve his quality of lift. LTG Duration 8 weeks Assessment Summary Assessment Pt cont to improve with less pain during active IR and ER. Able to negra upto 2-3 lbs of weighted ball for IR and ER with minimal pain. Added shd ext iso hold level 2TB, shd pull apart iso hold level 2TB, seated T-spine, scap push up. Physical Therapy Plan Next Visit Focus/Plan Next Note Type Treatment Note Next Visit Plan reassess cervical movement GH inferior/ post glide T/S ext and rotation continue strengthening in GH neutral position gravity eliminated position and scap stability trianing
--- NOTE | 2020-01-08 18:00 | PT.OTN ---
Current Diagnoses Strain of unspecified muscle, fascia and tendon at shoulder and upper arm level, right arm, initial encounter (01/08/20) Physical Therapy Treatment Note PT-OP-A Visit Information Start: 12/04/19 08:07 Freq: Status: Active Protocol: Document 01/08/20 15:52 HH (Rec: 01/08/20 17:59 HH [id number]) Out-Patient Physical Therapy Visit Information Visit Information Visit Type Treatment Note Visit Start Time 15:56 Visit Stop Time 16:45 Total Visit Minutes 49 Visit Number 08/13 Number of STEAM FINISHER Visits 0 PT-OP-B Current Condition Start: 12/04/19 08:07 Freq: Status: Active Protocol: Document 12/04/19 09:00 HH (Rec: 12/04/19 08:24 HH [email or web address]) Current Condition History of Current Condition Onset Date Aug, 2019 Current Complaints R shoulder pain, difficulty in overhead activities d/t pain and weakness History of Current Condition Pt is a 23-year-old male daily smoker with history of right shoulder injury presents with a chief complaint of a ongoing and worsening right shoulder pain. He describes his pain as achy and pinching at the superioranterior aspect of R shoulder, along with noticeable weakness that limits him from doing lifting activtiies. He also has difficulty sleeping on his R side d/t pain. His pain is worse with motion and improves with rest. He does have episodes of some tingling going down to his hand (chisholm side 2nd to 4th digits). He had a work related injury earlier in the year and a rotator cuff injury. He had an MRI showing a partial supraspinatus tear and was taken to the OR by local orthopedics for a orthroscopic surgery on May 01/2018. He received physical therapy service at [facility] in the summer of 2018. He had been doing fine well until August when he was stretching any felt a pop in his shoulder and has worsening pain since then. He is still doing his HEP from previous PT which includes SL ABD, supine flexion, SL ER and wall slide to maintain his ROM but no strengthening ex. He also reports he switched his ortho Dr from Dr. Schumacher to Dr. Franco who believes that pt would be benefit from participating work conditioning from PT before any surgical approach. 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 Pt has been out of work from a year now d/t his injury Prior Treatments and Tests MRI at R shoulder= Low-grade bursal surface irregularity of the supraspinatus and infraspinatus tendons, potentially postsurgical appearance and/or fraying. No full-thickness tear identified . No articular sided tear seen . Adjacent mild subacromial- subdeltoid bursitis. No labral tear. Cervical MRI= 1. Preservation of disc height and disc signal throughout the cervical spine. 2. Moderate neuroforaminal stenosis on the right at C3-4 and on the left at C4-5. Severe right neuroforaminal narrowing at C3-4. 3. No canal stenosis, cord signal abnormality, or deformity of the cord. Future Testing and Treatments Planned f/u appt with Dr. Rizvi on Dec 18 Treatment Goals Patient/Caregiver Goals 1. To be pain free for entire ROM of R shoulder 2. To strengthening his shoulder musculature 3. To fully return to work and able to carry 50-75% objects without discomfort Prior Functional Status Baseline Function- ADL's Independent Baseline Function- Mobility Independent Baseline Function- Work/School work that requires active lifting, pushing and pulling Baseline Function- Recreation/Hobbies no limitation in any activities that requires overhead movements Current Functional Impairments (Reported) Functional Limitations- ADL's Pain during carter/doff clothes (D2 flexion and reach behind his back) Functional Limitations- Work/School Unable to work since a year ago. Unable to lift things >20 lb d/t pain Personal Factors Other Personal Factors That May Effect current smoker Therapy/Recovery PT-OP-C Subjective Start: 12/04/19 08:07 Freq: Status: Active Protocol: Document 01/08/20 15:52 HH (Rec: 01/08/20 17:59 [id number]) OP-PT Subjective Patient Comments Patient Comments My lat got really sore from last time. I still have tingling sensation to R hand twice a week for an hour each time. My surgical application is still under reviewed so im not sure what kind of surgical approach might be needed. Patient Reported Progress Same PT-OP-E Functional Tests Start: 12/04/19 08:07 Freq: Status: Active Protocol: Document 12/04/19 09:00 HH (Rec: 12/04/19 11:56 [email or web address]) Functional Tests Apley's Scratch Test Action 2- Left T4 Action 2- Right T2 Action 3- Left T4 SP Action 3- Right L scap inf pole PT-OP-F Manual Assessment Start: 12/04/19 08:07 Freq: Status: Active Protocol: Document 12/04/19 09:00 (Rec: 12/04/19 11:56 [email or web address]) Manual Assessments Other Manual Assessments Other Manual Assessments GH head anterior shift during R shoulder extension PT-OP-K Range of Motion Start: 12/04/19 08:07 Freq: Status: Active Protocol: Document 12/04/19 09:00 (Rec: 12/04/19 11:56 [email or web address]) Shoulder Goniometric Range of Motion Shoulder Left Active Shoulder ROM WFL Yes Testing Position Standing Flexion 160 Extension 150 External Rotation at 90 degrees 80 Abduction Internal Rotation 90 Right Active Shoulder ROM WFL Yes Testing Position Standing Flexion 160 Extension 65 Abduction 150 External Rotation at 90 degrees 65 Abduction Internal Rotation 54 Shoulder ROM Limitations Shoulder ROM Limitations Soft Tissue Tightness,Pain Comments moderate muscle guarding noted during end range ER and IR ( IR is more painful) PT-OP-L Special Tests Start: 12/04/19 08:07 Freq: Status: Active Protocol: Document 12/04/19 09:00 (Rec: 12/04/19 11:56 [email or web address]) Special Tests Cervical Spine Special Tests Spurling's Test Test Results -ve B Foraminal Compression Test Results +ve R Comments with ext/ R rotation at overpressure(radiating pain to top of R shoulder) Shoulder Special Tests Apprehension Test Test Results +VE R Comments decreased in pain with posterior glide of GH during eR and IR, along with increased ROM noted. AC Joint Compression Test Results +ve R IR/Horizontal ADD Impingement Test Results +ve R Comments pressure/ pinching sensation noted Lift-Off Rotator Cuff Test Results +VE R Comments difficulty lift off from back of his hip with c/o R shd pain Belly Press Test Results -ve Drop Arm Rotator Cuff Test Results -ve R Comments Able to hold position pain with resistance Empty Can Test Results +VE Comments pain with resistance PT-OP-M Strength Start: 12/04/19 08:07 Freq: Status: Active Protocol: Document 12/04/19 09:00 (Rec: 12/04/19 11:56 [email or web address]) Shoulder Strength Shoulder Manual Muscle Testing Right Flexion 4 Good Extension 4 Good Abduction (C5) 4- Good- External Rotation 4- Good- Internal Rotation 4- Good- Reason Not Measured Pain Left Flexion 5 Normal Extension 5 Normal Abduction (C5) 5 Normal Adduction 5 Normal External Rotation 5 Normal Internal Rotation 5 Normal PT-OP-Q Treatments Start: 12/04/19 08:07 Freq: Status: Active Protocol: Document 01/08/20 15:52 (Rec: 01/08/20 17:59 [id number]) Therapeutic Exercises Supine Exercises shd IR ER Side right Equipment Used 2-3lbs weighted ball Comments slow full AROM, before pain threshold Sidelying Exercises horziontal abd Side right Equipment Used 2lbs Reps/Minutes 8 x2 reps shoulder ER Sidelying Exercise Name full range Side right Equipment Used no weight Reps/Minutes 10 Comments denies pain Standing Exercises horizontal abd + ext Standing Exercise Name butterfly pull apart (elbow straight) Side bilateral Resistance leve 1 band Reps/Minutes 8 x2 Comments shoulder neutral to 90 degrees abd. TB pull apart Standing Exercise Name with elbow bent (shd ER)- iso Side bilateral Equipment Used yellow band Reps/Minutes 8 x 3 Comments up to pain threshold Manual Therapy Treatment Soft Tissue Mobilization R serratus anterior Mobilization Type Sustained Pressure,Trigger Point Release Intensity/Depth Moderate Body Position Sidelying R lat Mobilization Type Sustained Pressure,Trigger Point Release Intensity/Depth Moderate Body Position Sidelying STM Body Location R pec, infraspinatus Mobilization Type Strumming,Sustained Pressure, Trigger Point Release Intensity/Depth Deep Body Position Sidelying Joint Mobilizations GH 2 Joint GH joint R Direction inferior Grade II Body Position Supine Reps/Duration 10 sec x 8 GH Joint Gh joint (R) Direction post glide Grade II Body Position Supine Reps/Duration 10 sec x 8 Comments during IR and ER PT-OP-T Assessment and Plan Start: 12/04/19 08:07 Freq: Status: Active Protocol: Document 01/08/20 15:52 (Rec: 01/08/20 17:59 [id number]) Physical Therapy Assessment Goals pain Impairment +ve on cervical ext/R rot, lift off test, ER/IR, AC joint compression Inspector Line Goal (LTG) 01/08: Pt has less pain for active IR and ER with 80-90% of full range. Pt will be pain free for all special tests (cervical ext/R rot, lift off test, shoulder ER/IR and Ac joint compression ) LTG Duration 8 weeks strength Impairment Pt's R shd strength = 4/5 grossly Fdc Goal (LTG) 01/08 : pain at 6-7/10 , strength 4/5 grossly. 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 [ End ] LTG Duration 8 weeks ROM Impairment Pt's ER= 65 and IR= 54 Short Term Goal (STG) 01/08 goal met: Pt will reach 80 and 80 for ER and IR with shd at 90 degrees . STG Duration 4 weeks Fdc Goal (LTG) Pt will reach full range of ER and IR up to 90 without pain so pt can carter/doff clothes without discomfort LTG Duration 8 weeks Quickdash Impairment Pt scores 77.3 (60-79% impairment) on quick dash Short Term Goal (STG) 01/08 cont in progress: quickdash 72.7 pt will score <40 on Quickdash to improve his functional mobility and strength to improve his quality of lift. STG Duration 4 weeks Fdc Goal (LTG) pt will score <20 on Quickdash to improve his functional mobility and strength to improve his quality of lift. LTG Duration 8 weeks Progress Towards Goals Progress Towards Goals Slow Progress due to Medical Issues,Slow Progress - Other Assessment Summary Assessment Pt negra tx well but he cont to have clicking pain during the painful arc (80-120 shd flexion/ abd) and mostly during eccentric phase. Pt does not have much c/o during overhead shoulder lift off and resisted shd ext and horizontal abd. Physical Therapy Plan Next Visit Focus/Plan Next Note Type Treatment Note Next Visit Plan reassess cervical movement GH inferior/ post glide T/S ext and rotation continue strengthening in GH neutral position gravity eliminated position and scap stability trianing
--- NOTE | 2020-01-17 17:54 | PT.OTN ---
Current Diagnoses Strain of unspecified muscle, fascia and tendon at shoulder and upper arm level, right arm, initial encounter (01/17/20) Physical Therapy Treatment Note PT-OP-A Visit Information Start: 12/04/19 08:07 Freq: Status: Active Protocol: Document 01/17/20 16:45 HH (Rec: 01/17/20 17:54 HH [email or web address]) Out-Patient Physical Therapy Visit Information Visit Information Visit Type Progress Note Visit Start Time 16:45 Visit Stop Time 17:32 Total Visit Minutes 47 Visit Number 09/12 Number of PARK WORKER Visits 0 PT-OP-B Current Condition Start: 12/04/19 08:07 Freq: Status: Active Protocol: Document 12/04/19 09:00 HH (Rec: 12/04/19 08:24 HH [email or web address]) Current Condition History of Current Condition Onset Date Aug, 2019 Current Complaints R shoulder pain, difficulty in overhead activities d/t pain and weakness History of Current Condition Pt is a 23-year-old male daily smoker with history of right shoulder injury presents with a chief complaint of a ongoing and worsening right shoulder pain. He describes his pain as achy and pinching at the superioranterior aspect of R shoulder, along with noticeable weakness that limits him from doing lifting activtiies. He also has difficulty sleeping on his R side d/t pain. His pain is worse with motion and improves with rest. He does have episodes of some tingling going down to his hand (chisholm side 2nd to 4th digits). He had a work related injury earlier in the year and a rotator cuff injury. He had an MRI showing a partial supraspinatus tear and was taken to the OR by local orthopedics for a orthroscopic surgery on May 01/2018. He received physical therapy service at [facility] in the summer of 2018. He had been doing fine well until August when he was stretching any felt a pop in his shoulder and has worsening pain since then. He is still doing his HEP from previous PT which includes SL ABD, supine flexion, SL ER and wall slide to maintain his ROM but no strengthening ex. He also reports he switched his ortho Dr from Dr. Schumacher to Dr. Franco who believes that pt would be benefit from participating work conditioning from PT before any surgical approach. 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 Pt has been out of work from a year now d/t his injury Prior Treatments and Tests MRI at R shoulder= Low-grade bursal surface irregularity of the supraspinatus and infraspinatus tendons, potentially postsurgical appearance and/or fraying. No full-thickness tear identified . No articular sided tear seen . Adjacent mild subacromial- subdeltoid bursitis. No labral tear. Cervical MRI= 1. Preservation of disc height and disc signal throughout the cervical spine. 2. Moderate neuroforaminal stenosis on the right at C3-4 and on the left at C4-5. Severe right neuroforaminal narrowing at C3-4. 3. No canal stenosis, cord signal abnormality, or deformity of the cord. Future Testing and Treatments Planned f/u appt with Dr. Rizvi on Dec 18 Treatment Goals Patient/Caregiver Goals 1. To be pain free for entire ROM of R shoulder 2. To strengthening his shoulder musculature 3. To fully return to work and able to carry 50-75% objects without discomfort Prior Functional Status Baseline Function- ADL's Independent Baseline Function- Mobility Independent Baseline Function- Work/School work that requires active lifting, pushing and pulling Baseline Function- Recreation/Hobbies no limitation in any activities that requires overhead movements Current Functional Impairments (Reported) Functional Limitations- ADL's Pain during carter/doff clothes (D2 flexion and reach behind his back) Functional Limitations- Work/School Unable to work since a year ago. Unable to lift things >20 lb d/t pain Personal Factors Other Personal Factors That May Effect current smoker Therapy/Recovery PT-OP-C Subjective Start: 12/04/19 08:07 Freq: Status: Active Protocol: Document 01/17/20 16:45 HH (Rec: 01/17/20 17:54 [email or web address]) OP-PT Subjective Patient Comments Patient Comments My shoulder has been hurting a lot since and i dont know why. I havent been doing much since then. I feel like im going backward. Patient Reported Progress Worse PT-OP-E Functional Tests Start: 12/04/19 08:07 Freq: Status: Active Protocol: Document 12/04/19 09:00 HH (Rec: 12/04/19 11:56 [email or web address]) Functional Tests Domingoey's Scratch Test Action 2- Left T4 Action 2- Right T2 Action 3- Left T4 SP Action 3- Right L scap inf pole PT-OP-F Manual Assessment Start: 12/04/19 08:07 Freq: Status: Active Protocol: Document 12/04/19 09:00 (Rec: 12/04/19 11:56 [email or web address]) Manual Assessments Other Manual Assessments Other Manual Assessments GH head anterior shift during R shoulder extension PT-OP-K Range of Motion Start: 12/04/19 08:07 Freq: Status: Active Protocol: Document 12/04/19 09:00 (Rec: 12/04/19 11:56 [email or web address]) Shoulder Goniometric Range of Motion Shoulder Left Active Shoulder ROM WFL Yes Testing Position Standing Flexion 160 Extension 150 External Rotation at 90 degrees 80 Abduction Internal Rotation 90 Right Active Shoulder ROM WFL Yes Testing Position Standing Flexion 160 Extension 65 Abduction 150 External Rotation at 90 degrees 65 Abduction Internal Rotation 54 Shoulder ROM Limitations Shoulder ROM Limitations Soft Tissue Tightness,Pain Comments moderate muscle guarding noted during end range ER and IR ( IR is more painful) PT-OP-L Special Tests Start: 12/04/19 08:07 Freq: Status: Active Protocol: Document 12/04/19 09:00 (Rec: 12/04/19 11:56 [email or web address]) Special Tests Cervical Spine Special Tests Spurling's Test Test Results -ve B Foraminal Compression Test Results +ve R Comments with ext/ R rotation at overpressure(radiating pain to top of R shoulder) Shoulder Special Tests Apprehension Test Test Results +VE R Comments decreased in pain with posterior glide of GH during eR and IR, along with increased ROM noted. AC Joint Compression Test Results +ve R IR/Horizontal ADD Impingement Test Results +ve R Comments pressure/ pinching sensation noted Lift-Off Rotator Cuff Test Results +VE R Comments difficulty lift off from back of his hip with c/o R shd pain Belly Press Test Results -ve Drop Arm Rotator Cuff Test Results -ve R Comments Able to hold position pain with resistance Empty Can Test Results +VE Comments pain with resistance PT-OP-M Strength Start: 12/04/19 08:07 Freq: Status: Active Protocol: Document 12/04/19 09:00 (Rec: 12/04/19 11:56 [email or web address]) Shoulder Strength Shoulder Manual Muscle Testing Right Flexion 4 Good Extension 4 Good Abduction (C5) 4- Good- External Rotation 4- Good- Internal Rotation 4- Good- Reason Not Measured Pain Left Flexion 5 Normal Extension 5 Normal Abduction (C5) 5 Normal Adduction 5 Normal External Rotation 5 Normal Internal Rotation 5 Normal PT-OP-Q Treatments Start: 12/04/19 08:07 Freq: Status: Active Protocol: Document 01/17/20 16:45 (Rec: 01/17/20 17:54 [email or web address]) Therapeutic Exercises Supine Exercises shd IR ER Side right Reps/Minutes 8 x2 Comments reduced AROM today Sitting Exercises neck stretch Sitting Exercise Name passive levator stretch Side right Manual Therapy Treatment Soft Tissue Mobilization R serratus anterior Mobilization Type Sustained Pressure,Trigger Point Release Intensity/Depth Moderate Body Position Sidelying R lat Mobilization Type Sustained Pressure,Trigger Point Release Intensity/Depth Moderate Body Position Sidelying STM Body Location R pec, infraspinatus Mobilization Type Strumming,Sustained Pressure, Trigger Point Release Intensity/Depth Deep Body Position Sidelying Joint Mobilizations GH 2 Joint GH joint R Direction inferior Grade II Body Position Supine Reps/Duration 10 sec x 8 GH Joint Gh joint (R) Direction post glide Grade II Body Position Supine Reps/Duration 10 sec x 8 Comments during IR and ER PT-OP-T Assessment and Plan Start: 12/04/19 08:07 Freq: Status: Active Protocol: Document 01/17/20 16:45 (Rec: 01/17/20 17:54 [email or web address]) Physical Therapy Assessment Goals pain Mcfp Goal (LTG) 01/17: Pt has reduced shoulder IR/ER today with significant pain. strength Impairment Pt's R shd strength = 4/5 grossly Tester Compressed Gases Goal (LTG) 01/17 : pain at 8/10 , strength 4-/5 grossly. 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 [ End ] LTG Duration 8 weeks ROM Impairment Pt's ER= 65 and IR= 54 Short Term Goal (STG) 01/08 goal met: Pt will reach 80 and 80 for ER and IR with shd at 90 degrees . STG Duration 4 weeks Tester Compressed Gases Goal (LTG) 01/17: reduced IR and ER noted. ER = 76 IR =80 Pt will reach full range of ER and IR up to 90 without pain so pt can carter/doff clothes without discomfort LTG Duration 8 weeks Quickdash Impairment Pt scores 77.3 (60-79% impairment) on quick dash Short Term Goal (STG) 01/08 cont in progress: quickdash 72.7 pt will score <40 on Quickdash to improve his functional mobility and strength to improve his quality of lift. STG Duration 4 weeks Mcfp Goal (LTG) pt will score <20 on Quickdash to improve his functional mobility and strength to improve his quality of lift. LTG Duration 8 weeks Progress Towards Goals Progress Towards Goals Slow Progress - Other Assessment Summary Assessment Pt has a flare up since last week and showed increased in pain 07/07 and decreased AROM. There's increased GH joint clicking noticed as well. Rec pt to take rest for the next couple days for pain to subside. Pt is currently at plateau for rehab progress and no able to return to work d/t his limited strength and ROM. Rec pt to f/u with Dr. Franco to reassess Physical Therapy Plan Next Visit Focus/Plan Next Note Type Treatment Note Next Visit Plan reassess cervical movement GH inferior/ post glide T/S ext and rotation continue strengthening in GH neutral position gravity eliminated position and scap stability trianing
--- NOTE | 2020-01-22 18:50 | PT.OTN ---
Current Diagnoses Strain of unspecified muscle, fascia and tendon at shoulder and upper arm level, right arm, initial encounter (01/22/20) Physical Therapy Treatment Note PT-OP-A Visit Information Start: 12/04/19 08:07 Freq: Status: Active Protocol: Document 01/22/20 16:05 (Rec: 01/22/20 18:50 [id number]) Out-Patient Physical Therapy Visit Information Visit Information Visit Type Treatment Note Visit Start Time 16:04 Visit Stop Time 16:45 Total Visit Minutes 41 Visit Number 10/13 Number of WELLNESS COORDINATOR Visits 0 PT-OP-B Current Condition Start: 12/04/19 08:07 Freq: Status: Active Protocol: Document 12/04/19 09:00 HH (Rec: 12/04/19 08:24 [email or web address]) Current Condition History of Current Condition Onset Date Aug, 2019 Current Complaints R shoulder pain, difficulty in overhead activities d/t pain and weakness History of Current Condition Pt is a 23-year-old male daily smoker with history of right shoulder injury presents with a chief complaint of a ongoing and worsening right shoulder pain. He describes his pain as achy and pinching at the superioranterior aspect of R shoulder, along with noticeable weakness that limits him from doing lifting activtiies. He also has difficulty sleeping on his R side d/t pain. His pain is worse with motion and improves with rest. He does have episodes of some tingling going down to his hand (chisholm side 2nd to 4th digits). He had a work related injury earlier in the year and a rotator cuff injury. He had an MRI showing a partial supraspinatus tear and was taken to the OR by local orthopedics for a orthroscopic surgery on May 01/2018. He received physical therapy service at [facility] in the summer of 2018. He had been doing fine well until August when he was stretching any felt a pop in his shoulder and has worsening pain since then. He is still doing his HEP from previous PT which includes SL ABD, supine flexion, SL ER and wall slide to maintain his ROM but no strengthening ex. He also reports he switched his ortho Dr from Dr. Schumacher to Dr. Franco who believes that pt would be benefit from participating work conditioning from PT before any surgical approach. 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 Pt has been out of work from a year now d/t his injury Prior Treatments and Tests MRI at R shoulder= Low-grade bursal surface irregularity of the supraspinatus and infraspinatus tendons, potentially postsurgical appearance and/or fraying. No full-thickness tear identified . No articular sided tear seen . Adjacent mild subacromial- subdeltoid bursitis. No labral tear. Cervical MRI= 1. Preservation of disc height and disc signal throughout the cervical spine. 2. Moderate neuroforaminal stenosis on the right at C3-4 and on the left at C4-5. Severe right neuroforaminal narrowing at C3-4. 3. No canal stenosis, cord signal abnormality, or deformity of the cord. Future Testing and Treatments Planned f/u appt with Dr. iRzvi on Dec 18 Treatment Goals Patient/Caregiver Goals 1. To be pain free for entire ROM of R shoulder 2. To strengthening his shoulder musculature 3. To fully return to work and able to carry 50-75% objects without discomfort Prior Functional Status Baseline Function- ADL's Independent Baseline Function- Mobility Independent Baseline Function- Work/School work that requires active lifting, pushing and pulling Baseline Function- Recreation/Hobbies no limitation in any activities that requires overhead movements Current Functional Impairments (Reported) Functional Limitations- ADL's Pain during carter/doff clothes (D2 flexion and reach behind his back) Functional Limitations- Work/School Unable to work since a year ago. Unable to lift things >20 lb d/t pain Personal Factors Other Personal Factors That May Effect current smoker Therapy/Recovery PT-OP-C Subjective Start: 12/04/19 08:07 Freq: Status: Active Protocol: Document 01/22/20 16:05 (Rec: 01/22/20 18:50 [email or web address]) OP-PT Subjective Patient Comments Patient Comments Joselyn been resting and my shoulder is around the same. It still has a lot of clicking today. It hurts everytime my shoulder clicked Patient Reported Progress Same PT-OP-E Functional Tests Start: 12/04/19 08:07 Freq: Status: Active Protocol: Document 12/04/19 09:00 (Rec: 12/04/19 11:56 [email or web address]) Functional Tests Domingoey's Scratch Test Action 2- Left T4 Action 2- Right T2 Action 3- Left T4 SP Action 3- Right L scap inf pole PT-OP-F Manual Assessment Start: 12/04/19 08:07 Freq: Status: Active Protocol: Document 12/04/19 09:00 (Rec: 12/04/19 11:56 [email or web address]) Manual Assessments Other Manual Assessments Other Manual Assessments GH head anterior shift during R shoulder extension PT-OP-K Range of Motion Start: 12/04/19 08:07 Freq: Status: Active Protocol: Document 12/04/19 09:00 (Rec: 12/04/19 11:56 [email or web address]) Shoulder Goniometric Range of Motion Shoulder Left Active Shoulder ROM WFL Yes Testing Position Standing Flexion 160 Extension 150 External Rotation at 90 degrees 80 Abduction Internal Rotation 90 Right Active Shoulder ROM WFL Yes Testing Position Standing Flexion 160 Extension 65 Abduction 150 External Rotation at 90 degrees 65 Abduction Internal Rotation 54 Shoulder ROM Limitations Shoulder ROM Limitations Soft Tissue Tightness,Pain Comments moderate muscle guarding noted during end range ER and IR ( IR is more painful) PT-OP-L Special Tests Start: 12/04/19 08:07 Freq: Status: Active Protocol: Document 12/04/19 09:00 (Rec: 12/04/19 11:56 [email or web address]) Special Tests Cervical Spine Special Tests Spurling's Test Test Results -ve B Foraminal Compression Test Results +ve R Comments with ext/ R rotation at overpressure(radiating pain to top of R shoulder) Shoulder Special Tests Apprehension Test Test Results +VE R Comments decreased in pain with posterior glide of GH during eR and IR, along with increased ROM noted. AC Joint Compression Test Results +ve R IR/Horizontal ADD Impingement Test Results +ve R Comments pressure/ pinching sensation noted Lift-Off Rotator Cuff Test Results +VE R Comments difficulty lift off from back of his hip with c/o R shd pain Belly Press Test Results -ve Drop Arm Rotator Cuff Test Results -ve R Comments Able to hold position pain with resistance Empty Can Test Results +VE Comments pain with resistance PT-OP-M Strength Start: 12/04/19 08:07 Freq: Status: Active Protocol: Document 12/04/19 09:00 (Rec: 12/04/19 11:56 [email or web address]) Shoulder Strength Shoulder Manual Muscle Testing Right Flexion 4 Good Extension 4 Good Abduction (C5) 4- Good- External Rotation 4- Good- Internal Rotation 4- Good- Reason Not Measured Pain Left Flexion 5 Normal Extension 5 Normal Abduction (C5) 5 Normal Adduction 5 Normal External Rotation 5 Normal Internal Rotation 5 Normal PT-OP-Q Treatments Start: 12/04/19 08:07 Freq: Status: Active Protocol: Document 01/22/20 16:05 (Rec: 01/22/20 18:50 [id number]) Therapeutic Exercises Supine Exercises shd IR ER Side right Reps/Minutes 8 x2 Comments reduced AROM today Standing Exercises upper trap stretch Standing Exercise Name R UE hold table edge with c/s lateral flexion to L Side right pec stretch Standing Exercise Name doorway stretch Side right shoulder flexion Standing Exercise Name AAROM with wand Side right Reps/Minutes 2 mins Comments slight pain report at end range shoulder ER Side right Equipment Used level 1 band Reps/Minutes 8 x3 horizontal abd + ext Standing Exercise Name AAROM with wand Side right Reps/Minutes 2 mins Comments no pain report shd extension Standing Exercise Name AAROM with wand Side right Reps/Minutes 2 mins Comments slight pain report Manual Therapy Treatment Soft Tissue Mobilization R lat Mobilization Type Sustained Pressure,Trigger Point Release Intensity/Depth Deep Body Position Sidelying STM Body Location R pec, infraspinatus Mobilization Type Strumming,Sustained Pressure, Trigger Point Release Intensity/Depth Deep Body Position Sidelying Comments reduced tenderness to pressure Joint Mobilizations GH 2 Joint GH joint R Direction inferior Grade II Body Position Supine Reps/Duration 10 sec x 8 GH Joint Gh joint (R) Direction post glide Grade II Body Position Supine Reps/Duration 10 sec x 8 Comments during IR and ER PT-OP-T Assessment and Plan Start: 12/04/19 08:07 Freq: Status: Active Protocol: Document 01/22/20 16:05 (Rec: 01/22/20 18:50 [id number]) Physical Therapy Assessment Goals pain Impairment +ve on cervical ext/R rot, lift off test, ER/IR, AC joint compression Vp Revenue Cycle Goal (LTG) 01/17: Pt has reduced shoulder IR/ER today with significant pain. LTG Duration 8 weeks strength Impairment Pt's R shd strength = 4/5 grossly Vp Revenue Cycle Goal (LTG) 01/17 : pain at 8/10 , strength 4-/5 grossly. 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 [ End ] LTG Duration 8 weeks ROM Impairment Pt's ER= 65 and IR= 54 Short Term Goal (STG) 01/08 goal met: Pt will reach 80 and 80 for ER and IR with shd at 90 degrees . STG Duration 4 weeks Vp Revenue Cycle Goal (LTG) 01/17: reduced IR and ER noted. ER = 76 IR =80 Pt will reach full range of ER and IR up to 90 without pain so pt can carter/doff clothes without discomfort LTG Duration 8 weeks Quickdash Impairment Pt scores 77.3 (60-79% impairment) on quick dash Short Term Goal (STG) 01/08 cont in progress: quickdash 72.7 pt will score <40 on Quickdash to improve his functional mobility and strength to improve his quality of lift. STG Duration 4 weeks Vp Revenue Cycle Goal (LTG) pt will score <20 on Quickdash to improve his functional mobility and strength to improve his quality of lift. LTG Duration 8 weeks Assessment Summary Assessment Pt cont to have pain at 8/10 since last visit even with rest. Pain is worse with abd > ER/IR> flexion> extension which indicate possibly d/t his ongoing highly irritable bursitis. Regressed his HEP to AAROM based with wand, R ER strengthening and neck and pec stretch and pt did not c/o increased discomfort. Physical Therapy Plan Next Visit Focus/Plan Next Note Type Treatment Note Next Visit Plan review HEP GH inferior/ post glide T/S ext and rotation continue strengthening in GH neutral position gravity eliminated position and scap stability trianing scap Ts, AAROM, ER strengthening
--- NOTE | 2020-06-06 16:51 | PT.OTN ---
Current Diagnoses Strain of unspecified muscle, fascia and tendon at shoulder and upper arm level, right arm, initial encounter (06/06/20) Physical Therapy Treatment Note PT-OP-A Visit Information Start: 12/04/19 08:07 Freq: Status: Active Protocol: Document 06/06/20 15:50 DCW (Rec: 06/06/20 16:51 DCW [id number]) Out-Patient Physical Therapy Visit Information Visit Information Visit Type Progress Note Visit Start Time 15:50 Visit Stop Time 16:35 Total Visit Minutes 45 Visit Number 11/12 Number of OFFLINE CUTTER Visits 0 PT-OP-B Current Condition Start: 12/04/19 08:07 Freq: Status: Active Protocol: Document 12/04/19 09:00 HH (Rec: 12/04/19 08:24 HH [id number]) Current Condition History of Current Condition Onset Date Aug, 2019 Current Complaints R shoulder pain, difficulty in overhead activities d/t pain and weakness History of Current Condition Pt is a 23-year-old male daily smoker with history of right shoulder injury presents with a chief complaint of a ongoing and worsening right shoulder pain. He describes his pain as achy and pinching at the superioranterior aspect of R shoulder, along with noticeable weakness that limits him from doing lifting activtiies. He also has difficulty sleeping on his R side d/t pain. His pain is worse with motion and improves with rest. He does have episodes of some tingling going down to his hand (chisholm side 2nd to 4th digits). He had a work related injury earlier in the year and a rotator cuff injury. He had an MRI showing a partial supraspinatus tear and was taken to the OR by local orthopedics for a orthroscopic surgery on May 01/2018. He received physical therapy service at [facility] in the summer. He had been doing fine well until August when he was stretching any felt a pop in his shoulder and has worsening pain since then. He is still doing his HEP from previous PT which includes SL ABD, supine flexion, SL ER and wall slide to maintain his ROM but no strengthening ex. He also reports he switched his ortho Dr from Dr. Schumacher to Dr. Franco who believes that pt would be benefit from participating work conditioning from PT before any surgical approach. 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 Pt has been out of work from a year now d/t his injury Prior Treatments and Tests MRI at R shoulder= Low-grade bursal surface irregularity of the supraspinatus and infraspinatus tendons, potentially postsurgical appearance and/or fraying. No full-thickness tear identified . No articular sided tear seen . Adjacent mild subacromial- subdeltoid bursitis. No labral tear. Cervical MRI= 1. Preservation of disc height and disc signal throughout the cervical spine. 2. Moderate neuroforaminal stenosis on the right at C3-4 and on the left at C4-5. Severe right neuroforaminal narrowing at C3-4. 3. No canal stenosis, cord signal abnormality, or deformity of the cord. Future Testing and Treatments Planned f/u appt with Dr. Rizvi on Dec 18 Treatment Goals Patient/Caregiver Goals 1. To be pain free for entire ROM of R shoulder 2. To strengthening his shoulder musculature 3. To fully return to work and able to carry 50-75% objects without discomfort Prior Functional Status Baseline Function- ADL's Independent Baseline Function- Mobility Independent Baseline Function- Work/School work that requires active lifting, pushing and pulling Baseline Function- Recreation/Hobbies no limitation in any activities that requires overhead movements Current Functional Impairments (Reported) Functional Limitations- ADL's Pain during carter/doff clothes (D2 flexion and reach behind his back) Functional Limitations- Work/School Unable to work since a year ago. Unable to lift things >20 lb d/t pain Personal Factors Other Personal Factors That May Effect current smoker Therapy/Recovery PT-OP-C Subjective Start: 12/04/19 08:07 Freq: Status: Active Protocol: Document 06/06/20 15:50 DCW (Rec: 06/06/20 16:51 DCW [id number]) OP-PT Subjective Patient Comments Patient Comments Pt notes his shoulder is still preventing him from getting a good night sleep. Notes he was just approved for a IRIS two days ago through [employer], which may decide wether or not he has to undergo another surgery PT-OP-E Functional Tests Start: 12/04/19 08:07 Freq: Status: Active Protocol: Document 06/06/20 15:50 DCW (Rec: 06/06/20 16:01 DCW [id number]) Functional Tests Apley's Scratch Test Action 1- Left Posterior opposite shoulder Action 1- Right Posterior opposite shoulder Action 2- Left T4 Action 2- Right T2 Action 3- Left T5 Action 3- Right T10 PT-OP-F Manual Assessment Start: 12/04/19 08:07 Freq: Status: Active Protocol: Document 06/06/20 15:50 DCW (Rec: 06/06/20 16:01 DCW [id number]) Manual Assessments Other Manual Assessments Other Manual Assessments GH head anterior shift during R shoulder extension PT-OP-K Range of Motion Start: 12/04/19 08:07 Freq: Status: Active Protocol: Document 06/06/20 15:50 DCW (Rec: 06/06/20 16:01 DCW [id number]) Shoulder Goniometric Range of Motion Shoulder Left Active Shoulder ROM WFL Yes Testing Position Standing Flexion 170 Extension 170 External Rotation at 90 degrees 80 Abduction Internal Rotation 70 Right Active Shoulder ROM WFL Yes Testing Position Standing Flexion 170 Extension 52 Abduction 140 External Rotation at 90 degrees 80 Abduction Internal Rotation 54 Shoulder ROM Limitations Shoulder ROM Limitations Soft Tissue Tightness,Pain Comments moderate muscle guarding noted during end range ER and IR ( IR is more painful) PT-OP-L Special Tests Start: 12/04/19 08:07 Freq: Status: Active Protocol: Document 06/06/20 15:50 DCW (Rec: 06/06/20 16:01 DCW [id number]) Special Tests Cervical Spine Special Tests Spurling's Test Test Results Negative Foraminal Compression Test Results Mild R pain Comments /c Ext/Rotation with overpressure Shoulder Special Tests Dow Johnny Impingement Test Results Positive R AC Joint Compression Test Results Mild tenderness R IR/Horizontal ADD Impingement Test Results Positive Comments pressure/ pinching sensation noted Belly Press Test Results Negative Drop Arm Rotator Cuff Test Results Negative Empty Can Test Results Positive R PT-OP-M Strength Start: 12/04/19 08:07 Freq: Status: Active Protocol: Document 06/06/20 15:50 DCW (Rec: 06/06/20 16:01 DCW [id number]) Shoulder Strength Shoulder Manual Muscle Testing Right Flexion 4 Good Extension 4 Good Abduction (C5) 4- Good- External Rotation 4- Good- Internal Rotation 4- Good- Reason Not Measured Pain Left Flexion 5 Normal Extension 5 Normal Abduction (C5) 5 Normal Adduction 5 Normal External Rotation 5 Normal Internal Rotation 5 Normal PT-OP-Q Treatments Start: 12/04/19 08:07 Freq: Status: Active Protocol: Document 06/06/20 15:50 DCW (Rec: 06/06/20 16:51 DCW [id number]) Manual Therapy Treatment Soft Tissue Mobilization R lat Mobilization Type Sustained Pressure,Trigger Point Release Intensity/Depth Deep Body Position Sidelying STM Body Location R pec, infraspinatus Mobilization Type Strumming,Sustained Pressure, Trigger Point Release Intensity/Depth Deep Body Position Sidelying Comments reduced tenderness to pressure Joint Mobilizations GH 2 Joint GH joint R Direction inferior Grade II Body Position Supine Reps/Duration 10 sec x 8 GH Joint Gh joint (R) Direction post glide Grade II Body Position Supine Reps/Duration 10 sec x 8 Comments during IR and ER Other Other Manual Treatments Testing PT-OP-T Assessment and Plan Start: 12/04/19 08:07 Freq: Status: Active Protocol: Document 06/06/20 15:50 DCW (Rec: 06/06/20 16:51 DCW [id number]) Physical Therapy Assessment Goals pain Impairment +ve on cervical ext/R rot, lift off test, ER/IR, AC joint compression [employer] D[employer] Goal (LTG) 01/17: Pt has reduced shoulder IR/ER today with significant pain. LTG Duration 8 weeks strength Impairment Pt's R shd strength = 4/5 grossly [employer] Goal (LTG) 01/17 : pain at 8/10 , strength 4-/5 grossly. 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 [ End ] LTG Duration 8 weeks ROM Impairment Pt's ER= 65 and IR= 54 Short Term Goal (STG) 01/08 goal met: Pt will reach 80 and 80 for ER and IR with shd at 90 degrees . STG Duration 4 weeks [employer] Goal (LTG) 01/17: reduced IR and ER noted. ER = 76 IR =80 Pt will reach full range of ER and IR up to 90 without pain so pt can carter/doff clothes without discomfort LTG Duration 8 weeks Quickdash Impairment Pt scores 77.3 (60-79% impairment) on quick dash Short Term Goal (STG) 01/08 cont in progress: quickdash 72.7 pt will score <40 on Quickdash to improve his functional mobility and strength to improve his quality of lift. STG Duration 4 weeks [employer] Goal (LTG) pt will score <20 on Quickdash to improve his functional mobility and strength to improve his quality of lift. LTG Duration 8 weeks Assessment Summary Assessment Pt is largely unchanged since he was last seen in December, [id number] shutdown. Pt continues to have limiting pain, and is unable to perform any work activities. Pain prevents sleep, and pt is very frustrated about is lack of progress. Pt is hopeful his upcoming IMR will allow for some answers. Physical Therapy Plan Frequency and Duration Frequency of Treatment 2x/Week Duration of Treatment 8 weeks Plan of Care Start Date 06/06/20 Plan of Care End Date 08/01/20 Therapeutic Interventions Therapeutic Interventions Home Exercise Program,Joint Mobilizations,Manual Therapy, Neuromuscular Re-education, Patient/Caregiver Education, Self-Care/Home Management,Soft Tissue Mobilization,Taping, Therapeutic Activities, Therapeutic Exercises Modalities Cold Pack/Ice Massage,Electric Stimulation,Hot Packs, Traction- Mechanical, Ultrasound Next Visit Focus/Plan Next Note Type Treatment Note Next Visit Plan review HEP GH inferior/ post glide T/S ext and rotation continue strengthening in GH neutral position gravity eliminated position and scap stability training scap Ts, AAROM, ER strengthening
--- NOTE | 2020-06-06 16:52 | PT.OPPOC ---
Physical, Occupational & Speech Therapy At [facility] Current Diagnoses Strain of unspecified muscle, fascia and tendon at shoulder and upper arm level, right arm, initial encounter (06/06/20) Visit Care Team Role Provider Type Del Franco MD Attending Provider Physician Primary Care Provider Specialty: Orthopedic Surgery Address: [address] [place] [address], [place], [address] Email: [email or web address] Plan Of Care PT-OP-T Assessment and Plan Start: 12/04/19 08:07 Freq: Status: Active Protocol: Document 06/06/20 15:50 DCW (Rec: 06/06/20 16:51 DCW [id number]) Physical Therapy Assessment Goals pain Impairment +ve on cervical ext/R rot, lift off test, ER/IR, AC joint compression [facility] Goal (LTG) 01/17: Pt has reduced shoulder IR/ER today with significant pain. LTG Duration 8 weeks strength Impairment Pt's R shd strength = 4/5 grossly Recovery Coordinator Goal (LTG) 01/17 : pain at 8/10 , strength 4-/5 grossly. 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 [ End ] LTG Duration 8 weeks ROM Impairment Pt's ER= 65 and IR= 54 Short Term Goal (STG) 01/08 goal met: Pt will reach 80 and 80 for ER and IR with shd at 90 degrees . STG Duration 4 weeks Recovery Coordinator Goal (LTG) 01/17: reduced IR and ER noted. ER = 76 IR =80 Pt will reach full range of ER and IR up to 90 without pain so pt can carter/doff clothes without discomfort LTG Duration 8 weeks Quickdash Impairment Pt scores 77.3 (60-79% impairment) on quick dash Short Term Goal (STG) 01/08 cont in progress: quickdash 72.7 pt will score <40 on Quickdash to improve his functional mobility and strength to improve his quality of lift. STG Duration 4 weeks Recovery Coordinator Goal (LTG) pt will score <20 on Quickdash to improve his functional mobility and strength to improve his quality of lift. LTG Duration 8 weeks Assessment Summary Assessment Pt is largely unchanged since he was last seen in December, [id number] shutdown. Pt continues to have limiting pain, and is unable to perform any work activities. Pain prevents sleep, and pt is very frustrated about is lack of progress. Pt is hopeful his upcoming IMR will allow for some answers. Physical Therapy Plan Frequency and Duration Frequency of Treatment 2x/Week Duration of Treatment 8 weeks Plan of Care Start Date 06/06/20 Plan of Care End Date 08/01/20 Therapeutic Interventions Therapeutic Interventions Home Exercise Program,Joint Mobilizations,Manual Therapy, Neuromuscular Re-education, Patient/Caregiver Education, Self-Care/Home Management,Soft Tissue Mobilization,Taping, Therapeutic Activities, Therapeutic Exercises Modalities Cold Pack/Ice Massage,Electric Stimulation,Hot Packs, Traction- Mechanical, Ultrasound Next Visit Focus/Plan Next Note Type Treatment Note Next Visit Plan review HEP GH inferior/ post glide T/S ext and rotation continue strengthening in GH neutral position gravity eliminated position and scap stability training scap Ts, AAROM, ER strengthening Plan of Care Dates Plan of Care Start Date 06/06/20 Plan of Care End Date 08/01/20 Electronically Signed by: Eddie Bolivar, PT 06/06/20 2228 Please Sign and Return: I have reviewed this Plan of Care and certify that the skilled therapy services above are required to meet the patient?s needs. Physician Signature Date Printed Name and Credentials Clinical Instructor Signature Printed Name and Credentials
--- NOTE | 2020-06-24 12:16 | PT.OTN ---
Current Diagnoses Strain of unspecified muscle, fascia and tendon at shoulder and upper arm level, right arm, initial encounter (06/24/20) Physical Therapy Treatment Note PT-OP-A Visit Information Start: 12/04/19 08:07 Freq: Status: Active Protocol: Document 06/24/20 11:16 HH (Rec: 06/24/20 12:16 [id number]) Out-Patient Physical Therapy Visit Information Visit Information Visit Type Treatment Note Visit Start Time 11:17 Visit Stop Time 12:00 Total Visit Minutes 43 Visit Number PT-OP-B Current Condition Start: 12/04/19 08:07 Freq: Status: Active Protocol: Document 12/04/19 09:00 HH (Rec: 12/04/19 08:24 HH [email or web address]) Current Condition History of Current Condition Onset Date Aug, 2019 Current Complaints R shoulder pain, difficulty in overhead activities d/t pain and weakness History of Current Condition Pt is a 23-year-old male daily smoker with history of right shoulder injury presents with a chief complaint of a ongoing and worsening right shoulder pain. He describes his pain as achy and pinching at the superioranterior aspect of R shoulder, along with noticeable weakness that limits him from doing lifting activtiies. He also has difficulty sleeping on his R side d/t pain. His pain is worse with motion and improves with rest. He does have episodes of some tingling going down to his hand (chisholm side 2nd to 4th digits). He had a work related injury earlier in the year and a rotator cuff injury. He had an MRI showing a partial supraspinatus tear and was taken to the OR by local orthopedics for a orthroscopic surgery on May 01/2018. He received physical therapy service at [facility] in the summer of 2018. He had been doing fine well until August when he was stretching any felt a pop in his shoulder and has worsening pain since then. He is still doing his HEP from previous PT which includes SL ABD, supine flexion, SL ER and wall slide to maintain his ROM but no strengthening ex. He also reports he switched his ortho Dr from Dr. Schumacher to Dr. Franco who believes that pt would be benefit from participating work conditioning from PT before any surgical approach. 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 Pt has been out of work from a year now d/t his injury Prior Treatments and Tests MRI at R shoulder= Low-grade bursal surface irregularity of the supraspinatus and infraspinatus tendons, potentially postsurgical appearance and/or fraying. No full-thickness tear identified . No articular sided tear seen . Adjacent mild subacromial- subdeltoid bursitis. No labral tear. Cervical MRI= 1. Preservation of disc height and disc signal throughout the cervical spine. 2. Moderate neuroforaminal stenosis on the right at C3-4 and on the left at C4-5. Severe right neuroforaminal narrowing at C3-4. 3. No canal stenosis, cord signal abnormality, or deformity of the cord. Future Testing and Treatments Planned f/u appt with Dr. Rizvi on Dec 18 Treatment Goals Patient/Caregiver Goals 1. To be pain free for entire ROM of R shoulder 2. To strengthening his shoulder musculature 3. To fully return to work and able to carry 50-75% objects without discomfort Prior Functional Status Baseline Function- ADL's Independent Baseline Function- Mobility Independent Baseline Function- Work/School work that requires active lifting, pushing and pulling Baseline Function- Recreation/Hobbies no limitation in any activities that requires overhead movements Current Functional Impairments (Reported) Functional Limitations- ADL's Pain during carter/doff clothes (D2 flexion and reach behind his back) Functional Limitations- Work/School Unable to work since a year ago. Unable to lift things >20 lb d/t pain Personal Factors Other Personal Factors That May Effect current smoker Therapy/Recovery PT-OP-C Subjective Start: 12/04/19 08:07 Freq: Status: Active Protocol: Document 06/24/20 11:16 HH (Rec: 06/24/20 12:16 HH [id number]) OP-PT Subjective Patient Comments Patient Comments Pt reports he has been able to sleep on R side accidentally a few times last week but it felt okay. His primary c/o is pain and loss of strength. PT-OP-E Functional Tests Start: 12/04/19 08:07 Freq: Status: Active Protocol: Document 06/06/20 15:50 DCW (Rec: 06/06/20 16:01 DCW [id number]) Functional Tests Domingoey's Scratch Test Action 1- Left Posterior opposite shoulder Action 1- Right Posterior opposite shoulder Action 2- Left T4 Action 2- Right T2 Action 3- Left T5 Action 3- Right T10 PT-OP-F Manual Assessment Start: 12/04/19 08:07 Freq: Status: Active Protocol: Document 06/06/20 15:50 DCW (Rec: 06/06/20 16:01 DCW [id number]) Manual Assessments Other Manual Assessments Other Manual Assessments GH head anterior shift during R shoulder extension PT-OP-K Range of Motion Start: 12/04/19 08:07 Freq: Status: Active Protocol: Document 06/06/20 15:50 DCW (Rec: 06/06/20 16:01 DCW [id number]) Shoulder Goniometric Range of Motion Shoulder Left Active Shoulder ROM WFL Yes Testing Position Standing Flexion 170 Extension 170 External Rotation at 90 degrees 80 Abduction Internal Rotation 70 Right Active Shoulder ROM WFL Yes Testing Position Standing Flexion 170 Extension 52 Abduction 140 External Rotation at 90 degrees 80 Abduction Internal Rotation 54 Shoulder ROM Limitations Shoulder ROM Limitations Soft Tissue Tightness,Pain Comments moderate muscle guarding noted during end range ER and IR ( IR is more painful) PT-OP-L Special Tests Start: 12/04/19 08:07 Freq: Status: Active Protocol: Document 06/06/20 15:50 DCW (Rec: 06/06/20 16:01 DCW [id number]) Special Tests Cervical Spine Special Tests Spurling's Test Test Results Negative Foraminal Compression Test Results Mild R pain Comments /c Ext/Rotation with overpressure Shoulder Special Tests Dow Johnny Impingement Test Results Positive R AC Joint Compression Test Results Mild tenderness R IR/Horizontal ADD Impingement Test Results Positive Comments pressure/ pinching sensation noted Belly Press Test Results Negative Drop Arm Rotator Cuff Test Results Negative Empty Can Test Results Positive R PT-OP-M Strength Start: 12/04/19 08:07 Freq: Status: Active Protocol: Document 06/06/20 15:50 DCW (Rec: 06/06/20 16:01 DCW [id number]) Shoulder Strength Shoulder Manual Muscle Testing Right Flexion 4 Good Extension 4 Good Abduction (C5) 4- Good- External Rotation 4- Good- Internal Rotation 4- Good- Reason Not Measured Pain Left Flexion 5 Normal Extension 5 Normal Abduction (C5) 5 Normal Adduction 5 Normal External Rotation 5 Normal Internal Rotation 5 Normal PT-OP-Q Treatments Start: 12/04/19 08:07 Freq: Status: Active Protocol: Document 06/24/20 11:16 (Rec: 06/24/20 12:16 [id number]) Therapeutic Exercises Sidelying Exercises scap resistive strengthening Sidelying Exercise Name against PT resistance Side right Reps/Minutes 5 times for each direction. Comments upward, downward, retraciton and protraction. Pain noted. hor scap abduction Side right Reps/Minutes 8 x2 Comments for HEP, cues on scap retraction at end range open book Side right Reps/Minutes 8 x 2 Comments for HEP, prevent lumbar rotatoin Manual Therapy Treatment Soft Tissue Mobilization R lat Mobilization Type Sustained Pressure,Trigger Point Release Intensity/Depth Deep Body Position Sidelying STM Body Location R pec, infraspinatus Mobilization Type Strumming,Sustained Pressure, Trigger Point Release Intensity/Depth Deep Body Position Sidelying Comments slight discomfort at infrapsinatus more at AC joint Joint Mobilizations GH 2 Joint GH joint R Direction inferior Grade II Body Position Supine Reps/Duration 10 sec x 8 PT-OP-T Assessment and Plan Start: 12/04/19 08:07 Freq: Status: Active Protocol: Document 06/24/20 11:16 (Rec: 06/24/20 12:16 [id number]) Physical Therapy Assessment Goals pain Impairment +ve on cervical ext/R rot, lift off test, ER/IR, AC joint compression Jail Goal (LTG) 01/17: Pt has reduced shoulder IR/ER today with significant pain. LTG Duration 8 weeks strength Impairment Pt's R shd strength = 4/5 grossly Jail Goal (LTG) 01/17 : pain at 8/10 , strength 4-/5 grossly. 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 [ End ] LTG Duration 8 weeks ROM Impairment Pt's ER= 65 and IR= 54 Short Term Goal (STG) 01/08 goal met: Pt will reach 80 and 80 for ER and IR with shd at 90 degrees . STG Duration 4 weeks Export Clerk Goal (LTG) 01/17: reduced IR and ER noted. ER = 76 IR =80 Pt will reach full range of ER and IR up to 90 without pain so pt can carter/doff clothes without discomfort LTG Duration 8 weeks Quickdash Impairment Pt scores 77.3 (60-79% impairment) on quick dash Short Term Goal (STG) 01/08 cont in progress: quickdash 72.7 pt will score <40 on Quickdash to improve his functional mobility and strength to improve his quality of lift. STG Duration 4 weeks Jail Goal (LTG) pt will score <20 on Quickdash to improve his functional mobility and strength to improve his quality of lift. LTG Duration 8 weeks Assessment Summary Assessment This PT has been working with this pt since last year. His ROM is still intact but primary c/o is pain and strength loss. His pain is very easily irritated and he stated It always feel like deep inside with lots of popping and clicking. Tx focused primarily scapular stabilization and strengthening. Pt will have IRIS on . Physical Therapy Plan Next Visit Focus/Plan Next Note Type Treatment Note Next Visit Plan review HEP, assess post session tolerance GH inferior/ post glide T/S ext and rotation continue strengthening in GH neutral position gravity eliminated position and scap stability trianing scap Ts, TO, ER strengthening
--- NOTE | 2020-07-01 12:19 | PT.OTN ---
Current Diagnoses Strain of unspecified muscle, fascia and tendon at shoulder and upper arm level, right arm, initial encounter (07/01/20) Physical Therapy Treatment Note PT-OP-A Visit Information Start: 12/04/19 08:07 Freq: Status: Active Protocol: Document 07/01/20 12:14 HH (Rec: 07/01/20 12:19 HH [email or web address]) Out-Patient Physical Therapy Visit Information Visit Information Visit Type Treatment Note Visit Start Time 11:17 Visit Stop Time 12:00 Total Visit Minutes 43 Visit Number PT-OP-B Current Condition Start: 12/04/19 08:07 Freq: Status: Active Protocol: Document 12/04/19 09:00 HH (Rec: 12/04/19 08:24 HH [email or web address]) Current Condition History of Current Condition Onset Date Aug, 2019 Current Complaints R shoulder pain, difficulty in overhead activities d/t pain and weakness History of Current Condition Pt is a 23-year-old male daily smoker with history of right shoulder injury presents with a chief complaint of a ongoing and worsening right shoulder pain. He describes his pain as achy and pinching at the superioranterior aspect of R shoulder, along with noticeable weakness that limits him from doing lifting activtiies. He also has difficulty sleeping on his R side d/t pain. His pain is worse with motion and improves with rest. He does have episodes of some tingling going down to his hand (chisholm side 2nd to 4th digits). He had a work related injury earlier in the year and a rotator cuff injury. He had an MRI showing a partial supraspinatus tear and was taken to the OR by local orthopedics for a orthroscopic surgery on May 01/2018. He received physical therapy service at [facility] in the summer of 2018. He had been doing fine well until August when he was stretching any felt a pop in his shoulder and has worsening pain since then. He is still doing his HEP from previous PT which includes SL ABD, supine flexion, SL ER and wall slide to maintain his ROM but no strengthening ex. He also reports he switched his ortho Dr from Dr. Schumacher to Dr. Franco who believes that pt would be benefit from participating work conditioning from PT before any surgical approach. 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 Pt has been out of work from a year now d/t his injury Prior Treatments and Tests MRI at R shoulder= Low-grade bursal surface irregularity of the supraspinatus and infraspinatus tendons, potentially postsurgical appearance and/or fraying. No full-thickness tear identified . No articular sided tear seen . Adjacent mild subacromial- subdeltoid bursitis. No labral tear. Cervical MRI= 1. Preservation of disc height and disc signal throughout the cervical spine. 2. Moderate neuroforaminal stenosis on the right at C3-4 and on the left at C4-5. Severe right neuroforaminal narrowing at C3-4. 3. No canal stenosis, cord signal abnormality, or deformity of the cord. Future Testing and Treatments Planned f/u appt with Dr. Rizvi on Dec 18 Treatment Goals Patient/Caregiver Goals 1. To be pain free for entire ROM of R shoulder 2. To strengthening his shoulder musculature 3. To fully return to work and able to carry 50-75% objects without discomfort Prior Functional Status Baseline Function- ADL's Independent Baseline Function- Mobility Independent Baseline Function- Work/School work that requires active lifting, pushing and pulling Baseline Function- Recreation/Hobbies no limitation in any activities that requires overhead movements Current Functional Impairments (Reported) Functional Limitations- ADL's Pain during carter/doff clothes (D2 flexion and reach behind his back) Functional Limitations- Work/School Unable to work since a year ago. Unable to lift things >20 lb d/t pain Personal Factors Other Personal Factors That May Effect current smoker Therapy/Recovery PT-OP-C Subjective Start: 12/04/19 08:07 Freq: Status: Active Protocol: Document 07/01/20 12:14 HH (Rec: 07/01/20 12:19 HH [email or web address]) OP-PT Subjective Patient Comments Patient Comments My IRIS got cancelled and pending to reschedule. my shoulder feels the same Patient Reported Progress Same PT-OP-E Functional Tests Start: 12/04/19 08:07 Freq: Status: Active Protocol: Document 06/06/20 15:50 DCW (Rec: 06/06/20 16:01 DCW [id number]) Functional Tests Domingoey's Scratch Test Action 1- Left Posterior opposite shoulder Action 1- Right Posterior opposite shoulder Action 2- Left T4 Action 2- Right T2 Action 3- Left T5 Action 3- Right T10 PT-OP-F Manual Assessment Start: 12/04/19 08:07 Freq: Status: Active Protocol: Document 06/06/20 15:50 DCW (Rec: 06/06/20 16:01 DCW [id number]) Manual Assessments Other Manual Assessments Other Manual Assessments GH head anterior shift during R shoulder extension PT-OP-K Range of Motion Start: 12/04/19 08:07 Freq: Status: Active Protocol: Document 06/06/20 15:50 DCW (Rec: 06/06/20 16:01 DCW [id number]) Shoulder Goniometric Range of Motion Shoulder Left Active Shoulder ROM WFL Yes Testing Position Standing Flexion 170 Extension 170 External Rotation at 90 degrees 80 Abduction Internal Rotation 70 Right Active Shoulder ROM WFL Yes Testing Position Standing Flexion 170 Extension 52 Abduction 140 External Rotation at 90 degrees 80 Abduction Internal Rotation 54 Shoulder ROM Limitations Shoulder ROM Limitations Soft Tissue Tightness,Pain Comments moderate muscle guarding noted during end range ER and IR ( IR is more painful) PT-OP-L Special Tests Start: 12/04/19 08:07 Freq: Status: Active Protocol: Document 06/06/20 15:50 DCW (Rec: 06/06/20 16:01 DCW [id number]) Special Tests Cervical Spine Special Tests Spurling's Test Test Results Negative Foraminal Compression Test Results Mild R pain Comments /c Ext/Rotation with overpressure Shoulder Special Tests Dow Johnny Impingement Test Results Positive R AC Joint Compression Test Results Mild tenderness R IR/Horizontal ADD Impingement Test Results Positive Comments pressure/ pinching sensation noted Belly Press Test Results Negative Drop Arm Rotator Cuff Test Results Negative Empty Can Test Results Positive R PT-OP-M Strength Start: 12/04/19 08:07 Freq: Status: Active Protocol: Document 06/06/20 15:50 DCW (Rec: 06/06/20 16:01 DCW [id number]) Shoulder Strength Shoulder Manual Muscle Testing Right Flexion 4 Good Extension 4 Good Abduction (C5) 4- Good- External Rotation 4- Good- Internal Rotation 4- Good- Reason Not Measured Pain Left Flexion 5 Normal Extension 5 Normal Abduction (C5) 5 Normal Adduction 5 Normal External Rotation 5 Normal Internal Rotation 5 Normal PT-OP-Q Treatments Start: 12/04/19 08:07 Freq: Status: Active Protocol: Document 07/01/20 12:14 (Rec: 07/01/20 12:19 [id number]) Therapeutic Exercises Supine Exercises scap punch Side right Equipment Used 2.5 lbs ball Reps/Minutes 8 x2 Prone Exercises prone Y,I,T Prone Exercise Name unilateral Side right Reps/Minutes 8 each Comments weakness noted for Y, pain worse at I Sidelying Exercises shd abd Sidelying Exercise Name to abd 90 degrees Side bilateral Equipment Used 2.5lbs ball Reps/Minutes 8 x2 scap resistive strengthening Sidelying Exercise Name against PT resistance Side right Reps/Minutes 5 times for each direction. Comments upward, downward, retraciton and protraction. Pain noted. hor scap abduction Side right Equipment Used 2.5 lbs ball Reps/Minutes 8 x2 Comments for HEP, cues on scap retraction at end range open book Side right Reps/Minutes 8 x 2 Comments for HEP, prevent lumbar rotatoin Manual Therapy Treatment Soft Tissue Mobilization R lat Mobilization Type Sustained Pressure,Trigger Point Release Intensity/Depth Deep Body Position Sidelying STM Body Location R pec, infraspinatus Mobilization Type Strumming,Sustained Pressure, Trigger Point Release Intensity/Depth Deep Body Position Sidelying Comments slight discomfort at infrapsinatus more at AC joint Joint Mobilizations GH 2 Joint GH joint R Direction inferior Grade II Body Position Supine Reps/Duration 10 sec x 8 PT-OP-T Assessment and Plan Start: 12/04/19 08:07 Freq: Status: Active Protocol: Document 07/01/20 12:14 (Rec: 07/01/20 12:19 [email or web address]) Physical Therapy Assessment Goals pain Impairment +ve on cervical ext/R rot, lift off test, ER/IR, AC joint compression Wool Brusher Goal (LTG) 01/17: Pt has reduced shoulder IR/ER today with significant pain. LTG Duration 8 weeks strength Impairment Pt's R shd strength = 4/5 grossly Wool Brusher Goal (LTG) 01/17 : pain at 8/10 , strength 4-/5 grossly. 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 [ End ] LTG Duration 8 weeks ROM Impairment Pt's ER= 65 and IR= 54 Short Term Goal (STG) 01/08 goal met: Pt will reach 80 and 80 for ER and IR with shd at 90 degrees . STG Duration 4 weeks Wool Brusher Goal (LTG) 01/17: reduced IR and ER noted. ER = 76 IR =80 Pt will reach full range of ER and IR up to 90 without pain so pt can carter/doff clothes without discomfort LTG Duration 8 weeks Quickdash Impairment Pt scores 77.3 (60-79% impairment) on quick dash Short Term Goal (STG) 01/08 cont in progress: quickdash 72.7 pt will score <40 on Quickdash to improve his functional mobility and strength to improve his quality of lift. STG Duration 4 weeks Wool Brusher Goal (LTG) pt will score <20 on Quickdash to improve his functional mobility and strength to improve his quality of lift. LTG Duration 8 weeks Assessment Summary Assessment Pt negra session well and has improved scap stabilization and control. He has min discomfort with prone y,I,T. will cont focus on scap strengthening and prone ex. Physical Therapy Plan Next Visit Focus/Plan Next Note Type Treatment Note Next Visit Plan review HEP, assess post session tolerance GH inferior/ post glide T/S ext and rotation continue strengthening in GH neutral position gravity eliminated position and scap stability trianing scap Ts, AAROM, ER strengthening
--- NOTE | 2020-07-08 12:48 | PT.OTN ---
Current Diagnoses Strain of unspecified muscle, fascia and tendon at shoulder and upper arm level, right arm, initial encounter (07/08/20) Physical Therapy Treatment Note PT-OP-A Visit Information Start: 12/04/19 08:07 Freq: Status: Active Protocol: Document 07/08/20 10:38 HH (Rec: 07/08/20 11:19 HH [id number]) Out-Patient Physical Therapy Visit Information Visit Information Visit Type Discharge Summary Visit Start Time 10:34 Visit Stop Time 11:15 Total Visit Minutes 41 Visit Number 15/16 Number of BURGLARY INVESTIGATOR Visits 0 PT-OP-B Current Condition Start: 12/04/19 08:07 Freq: Status: Active Protocol: Document 12/04/19 09:00 HH (Rec: 12/04/19 08:24 HH [id number]) Current Condition History of Current Condition Onset Date Aug, 2019 Current Complaints R shoulder pain, difficulty in overhead activities d/t pain and weakness History of Current Condition Pt is a 23-year-old male daily smoker with history of right shoulder injury presents with a chief complaint of a ongoing and worsening right shoulder pain. He describes his pain as achy and pinching at the superioranterior aspect of R shoulder, along with noticeable weakness that limits him from doing lifting activtiies. He also has difficulty sleeping on his R side d/t pain. His pain is worse with motion and improves with rest. He does have episodes of some tingling going down to his hand (chisholm side 2nd to 4th digits). He had a work related injury earlier in the year and a rotator cuff injury. He had an MRI showing a partial supraspinatus tear and was taken to the OR by local orthopedics for a orthroscopic surgery on May 01/2018. He received physical therapy service at [facility] in the summer of 2018. He had been doing fine well until August when he was stretching any felt a pop in his shoulder and has worsening pain since then. He is still doing his HEP from previous PT which includes SL ABD, supine flexion, SL ER and wall slide to maintain his ROM but no strengthening ex. He also reports he switched his ortho Dr from Dr. Schumacher to Dr. Franco who believes that pt would be benefit from participating work conditioning from PT before any surgical approach. 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 Pt has been out of work from a year now d/t his injury Prior Treatments and Tests MRI at R shoulder= Low-grade bursal surface irregularity of the supraspinatus and infraspinatus tendons, potentially postsurgical appearance and/or fraying. No full-thickness tear identified . No articular sided tear seen . Adjacent mild subacromial- subdeltoid bursitis. No labral tear. Cervical MRI= 1. Preservation of disc height and disc signal throughout the cervical spine. 2. Moderate neuroforaminal stenosis on the right at C3-4 and on the left at C4-5. Severe right neuroforaminal narrowing at C3-4. 3. No canal stenosis, cord signal abnormality, or deformity of the cord. Future Testing and Treatments Planned f/u appt with Dr. Rizvi on Dec 18 Treatment Goals Patient/Caregiver Goals 1. To be pain free for entire ROM of R shoulder 2. To strengthening his shoulder musculature 3. To fully return to work and able to carry 50-75% objects without discomfort Prior Functional Status Baseline Function- ADL's Independent Baseline Function- Mobility Independent Baseline Function- Work/School work that requires active lifting, pushing and pulling Baseline Function- Recreation/Hobbies no limitation in any activities that requires overhead movements Current Functional Impairments (Reported) Functional Limitations- ADL's Pain during carter/doff clothes (D2 flexion and reach behind his back) Functional Limitations- Work/School Unable to work since a year ago. Unable to lift things >20 lb d/t pain Personal Factors Other Personal Factors That May Effect current smoker Therapy/Recovery PT-OP-C Subjective Start: 12/04/19 08:07 Freq: Status: Active Protocol: Document 07/08/20 10:38 HH (Rec: 07/08/20 11:19 HH [id number]) OP-PT Subjective Patient Comments Patient Comments My IRIS got rescheduled to Aug 06. My shoulder has been around the same. Patient Reported Progress Same PT-OP-E Functional Tests Start: 12/04/19 08:07 Freq: Status: Active Protocol: Document 06/06/20 15:50 DCW (Rec: 06/06/20 16:01 DCW [id number]) Functional Tests Domingoey's Scratch Test Action 1- Left Posterior opposite shoulder Action 1- Right Posterior opposite shoulder Action 2- Left T4 Action 2- Right T2 Action 3- Left T5 Action 3- Right T10 PT-OP-F Manual Assessment Start: 12/04/19 08:07 Freq: Status: Active Protocol: Document 06/06/20 15:50 DCW (Rec: 06/06/20 16:01 DCW [id number]) Manual Assessments Other Manual Assessments Other Manual Assessments GH head anterior shift during R shoulder extension PT-OP-K Range of Motion Start: 12/04/19 08:07 Freq: Status: Active Protocol: Document 06/06/20 15:50 DCW (Rec: 06/06/20 16:01 DCW [id number]) Shoulder Goniometric Range of Motion Shoulder Left Active Shoulder ROM WFL Yes Testing Position Standing Flexion 170 Extension 170 External Rotation at 90 degrees 80 Abduction Internal Rotation 70 Right Active Shoulder ROM WFL Yes Testing Position Standing Flexion 170 Extension 52 Abduction 140 External Rotation at 90 degrees 80 Abduction Internal Rotation 54 Shoulder ROM Limitations Shoulder ROM Limitations Soft Tissue Tightness,Pain Comments moderate muscle guarding noted during end range ER and IR ( IR is more painful) PT-OP-L Special Tests Start: 12/04/19 08:07 Freq: Status: Active Protocol: Document 06/06/20 15:50 DCW (Rec: 06/06/20 16:01 DCW [id number]) Special Tests Cervical Spine Special Tests Spurling's Test Test Results Negative Foraminal Compression Test Results Mild R pain Comments /c Ext/Rotation with overpressure Shoulder Special Tests Dow Johnny Impingement Test Results Positive R AC Joint Compression Test Results Mild tenderness R IR/Horizontal ADD Impingement Test Results Positive Comments pressure/ pinching sensation noted Belly Press Test Results Negative Drop Arm Rotator Cuff Test Results Negative Empty Can Test Results Positive R PT-OP-M Strength Start: 12/04/19 08:07 Freq: Status: Active Protocol: Document 06/06/20 15:50 DCW (Rec: 06/06/20 16:01 DCW [id number]) Shoulder Strength Shoulder Manual Muscle Testing Right Flexion 4 Good Extension 4 Good Abduction (C5) 4- Good- External Rotation 4- Good- Internal Rotation 4- Good- Reason Not Measured Pain Left Flexion 5 Normal Extension 5 Normal Abduction (C5) 5 Normal Adduction 5 Normal External Rotation 5 Normal Internal Rotation 5 Normal PT-OP-Q Treatments Start: 12/04/19 08:07 Freq: Status: Active Protocol: Document 07/08/20 10:38 (Rec: 07/08/20 11:19 [id number]) Therapeutic Exercises Sidelying Exercises hor scap abduction Side right Equipment Used 2.5 lbs ball Reps/Minutes 8 x2 Comments pain noted open book Side right Reps/Minutes 8 x 2 Comments for HEP, prevent lumbar rotatoin Sitting Exercises OH nohelia Sitting Exercise Name flexion, abd, extension Side bilateral Reps/Minutes 10 mins Comments pain at end range. Most pain with extension Manual Therapy Treatment Soft Tissue Mobilization STM Body Location R pec, infraspinatus Mobilization Type Strumming,Sustained Pressure, Trigger Point Release Intensity/Depth Deep Body Position Sidelying Comments slight discomfort at infrapsinatus more at AC joint Joint Mobilizations GH 2 Joint GH joint R Direction inferior and posterior Grade II Body Position Supine Reps/Duration 10 sec x 8 PT-OP-T Assessment and Plan Start: 12/04/19 08:07 Freq: Status: Active Protocol: Document 07/08/20 10:38 (Rec: 07/08/20 11:19 [id number]) Physical Therapy Assessment Goals pain Impairment +ve on cervical ext/R rot, lift off test, ER/IR, AC joint compression Assisted Goal (LTG) 01/17: Pt has reduced shoulder IR/ER today with significant pain. LTG Duration 8 weeks strength Impairment Pt's R shd strength = 4/5 grossly Assisted Goal (LTG) 01/17 : pain at 8/10 , strength 4-/5 grossly. 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 [ End ] LTG Duration 8 weeks ROM Impairment Pt's ER= 65 and IR= 54 Short Term Goal (STG) 01/08 goal met: Pt will reach 80 and 80 for ER and IR with shd at 90 degrees . STG Duration 4 weeks Privacy Officer Goal (LTG) 01/17: reduced IR and ER noted. ER = 76 IR =80 Pt will reach full range of ER and IR up to 90 without pain so pt can carter/doff clothes without discomfort LTG Duration 8 weeks Quickdash Impairment Pt scores 77.3 (60-79% impairment) on quick dash Short Term Goal (STG) 01/08 cont in progress: quickdash 72.7 pt will score <40 on Quickdash to improve his functional mobility and strength to improve his quality of lift. STG Duration 4 weeks Privacy Officer Goal (LTG) pt will score <20 on Quickdash to improve his functional mobility and strength to improve his quality of lift. LTG Duration 8 weeks Progress Towards Goals Progress Towards Goals Slow Progress - Other Assessment Summary Assessment Pt has been plateaued and there's no significant improvements since IE. Pt cont to have significant pain with active abduction and reaching behind his back, along with limited strength. His shoulder movements also tend to limit by popping sensation which causes significant pain. Pt has been seen by 3 different therapists over the past year with similar results. Recommended pt to joan SIMMONS for further evaluation at this point. D/c pt from therapy today. Physical Therapy Plan Discharge Physical Therapy Discharge Reasons Plateau in Progress
== END 2020-07-09 12:23 ==
LOC: PHYS 10:30
PROVIDERS: PCP Orthopaedic Surgery; Visit Provider Orthopaedic Surgery
DX: S46.911A Strain of unspecified muscle, fascia and tendon at shoulder and upper arm level, right arm, initial encounter (principal)
CPT/HCPCS: 97110; 97140; 97161; 97535

== ENCOUNTER 2021-01-29 14:30 | Outpatient (RCR) | payer OTHER, SELFPAY ==
--- NOTE | 2020-11-18 16:45 | PT.OIE ---
Current Diagnoses Incomplete rotator cuff tear or rupture of right shoulder, not specified as traumatic (11/18/20) Bursitis of right shoulder (11/18/20) Strain of unspecified muscle, fascia and tendon at shoulder and upper arm level, right arm, initial encounter (11/18/20) Past Medical History (Last Reviewed 06/23/20 @ 19:37 by Chris Friedman DO) Diarrhea Past Surgical History (Last Reviewed 06/23/20 @ 19:37 by Chris Friedman DO) Hx of cholecystectomy Visit Care Team Role Provider Type Del Franco MD Attending Provider Physician Referring Provider Specialty: Orthopedic Surgery Address: [address] [place] [address], [id number] Email: [email or web address] Physical Therapy Initial Evaluation PT-OP-A Visit Information Start: 11/18/20 17:43 Freq: Status: Active Protocol: Document 11/18/20 16:00 DCW (Rec: 11/18/20 17:46 DCW [id number]) Out-Patient Physical Therapy Visit Information Visit Information Visit Type Initial Evaluation Visit Start Time 16:00 Visit Stop Time 16:45 Total Visit Minutes 45 Visit Number 1 Number of SEED CORE OPERATOR Visits 0 Evaluation Information Evaluation Date 11/18/20 PT-OP-B Current Condition Start: 11/18/20 17:43 Freq: Status: Active Protocol: Document 11/18/20 16:00 DCW (Rec: 11/19/20 11:03 DCW [id number]) Current Condition History of Current Condition Onset Date s/p 23 months Current Complaints Shoulder pain, inability to work History of Current Condition Pt is a 25 year old male with a complicated history of shoulder pain. Pt initially injured his shoulder at work 23 months ago lifting ~50 lb boxes. Pt reports he heard a pop and his right arm went numb. Since that injury, pt has been attending therapy off and on with minimal relief. Pt was found to have a potential partial thickness tear of the supraspinatus and infraspinatus tendons, per MRI on 10/18/19. Per pt today, his request for surgical intervention was denied by [facility]&I , based on an Independent Medical Evaluation. Pt is frustrated by this, feels he will not be able to return to work until he is 100%, and will not get there without surgery, so he is afraid he will lose his job. Pt notes he struggles lifting anything heavier than five pounds, lifting his arm overhead, or being in any position that puts tension on his shoulder. Prior Treatments and Tests Previous PT MRI PT-OP-C Subjective Start: 11/18/20 17:43 Freq: Status: Active Protocol: Document 11/18/20 16:00 DCW (Rec: 11/18/20 17:53 DCW [id number]) OP-PT Subjective Patient Comments Patient Comments Pt clearly frustrated with his long process since his injury , and his denial of surgery from L&I. It's like I'm just stuck in this loop. Patient Reported Progress Same Patient Questionnaires Quick Dash- Upper Extremity Quick Dash UE Score 63.64% Quick Dash UE Impairment 60 to 79% Impaired (Score 60- 79) OP-PT Pain Assessment Location R shoulder Intensity 8 Scale Used Numeric (0 - 10) PT-OP-E Functional Tests Start: 11/18/20 17:43 Freq: Status: Active Protocol: Document 11/18/20 16:00 DCW (Rec: 11/19/20 11:05 DCW [id number]) Functional Tests Apley's Scratch Test Action 1- Left Posterior opposite shoulder Action 1- Right Posterior opposite shoulder Action 2- Left T4 Action 2- Right C7 Action 3- Left T6 Action 3- Right T10 PT-OP-F Manual Assessment Start: 11/18/20 17:43 Freq: Status: Active Protocol: Document 11/18/20 16:00 DCW (Rec: 11/19/20 11:12 DCW [id number]) Manual Assessments Soft Tissue Assessment Soft Tissue Mobility Assessment Increased tone and tenderness to palpation 2/4: Pain with wincing along entire shoulder girdle, severe tone in R pec. Joint Mobility Assessment Joint Mobility Assessment ROM relatively WNL, however exhibits pain at end-range, significant crepitus in right GH joint with all movement. Other Manual Assessments Other Manual Assessments No change in pain with distraction or compression of joint PT-OP-K Range of Motion Start: 11/18/20 17:43 Freq: Status: Active Protocol: Document 11/18/20 16:00 DCW (Rec: 11/19/20 11:12 DCW [id number]) Shoulder Goniometric Range of Motion Shoulder Left Active Shoulder ROM WFL Yes Testing Position Sitting Right Active Shoulder ROM WFL Yes Testing Position Sitting Comments Pain with flexion and abduction over 90? PT-OP-M Strength Start: 11/18/20 17:43 Freq: Status: Active Protocol: Document 11/18/20 16:00 DCW (Rec: 11/19/20 11:12 DCW [id number]) Hand Feed House Supervisor/Pinch Strength Hand Strength Right Feed House Supervisor (lbs) 30 Comments Three-trial average (25 lbs, 30 lbs, 35 lbs) Left Feed House Supervisor (lbs) 48.3 Comments Three-trial average (45 lbs, 55 lbs, 45 lbs) PT-OP-T Assessment and Plan Start: 11/18/20 17:43 Freq: Status: Active Protocol: Document 11/18/20 16:00 DCW (Rec: 11/19/20 17:14 DCW [id number]) Physical Therapy Assessment Rehab Potential Rehabilitation Potential Fair Evaluation Complexity Number of Personal Factors/Comorbidities 1-2 Number of Body Systems Impaired 3 Clinical Presentation at Evaluation Evolving Impairments Impairments Functional Activities, Functional Mobility,Pain, Posture,ROM,Soft Tissue Mobility,Strength,Tone Goals pain Impairment Pt presents with severe pain lifting more than 5 pounds Fpc Goal (LTG) Pt to exhibit ability to lift 20 pounds with no increased pain LTG Duration 01/19/21 strength Impairment Feed House Supervisor strength R=30#, left=48.3 # [employer] Goal (LTG) Pt to improve bilateral medication tech strength to >60 lbs to demonstrate ability to return to necessary work duties LTG Duration 01/19/21 ROM Impairment Pt experiences severe pain with flexion and abduction over 90? [employer] Goal (LTG) Pt to demonstrate pain free ROM to 120? in flexion and abduction LTG Duration 01/19/21 Quickdash Impairment Pt scores 63.64% impairment on quick dash Fpc Goal (LTG) Pt will score <40% on Quickdash to improve his functional mobility and strength to improve his quality of life. LTG Duration 01/19/21 Assessment Summary Assessment Pt presents with signs and symptoms of continued dysfunction secondary to his prior right shoulder injury. Pt has constant pain, is unable to lift anything heavier than 5 pounds, experiences pain with ROM over 90? flexion and abduction, and displays increased tone in his right pec, resulting in forward shift of his humerus. Pt also has generalized weakness and deconditioning due to his decline in function over the last two years since his injury. Bilateral medication tech strength is significantly lower than expected for pt's age and size, with 30 pounds on the right and 48.3 on the left. Unfortunately, pt has undergone skilled PT multiple times since his injury with [id number] effect, and there has not been any overall change to expect a different outcome this time around, but pt is willing to put in any effort required. Physical Therapy Plan Frequency and Duration Frequency of Treatment 2x/Week Duration of Treatment Two months Plan of Care Start Date 11/18/20 Plan of Care End Date 01/19/21 Therapeutic Interventions Therapeutic Interventions Home Exercise Program,Joint Mobilizations,Manual Therapy, Patient/Caregiver Education, Self-Care/Home Management,Soft Tissue Mobilization,Taping, Therapeutic Activities, Therapeutic Exercises Modalities Cold Pack/Ice Massage,Electric Stimulation,Hot Packs, Ultrasound Next Visit Focus/Plan Next Note Type Treatment Note Next Visit Plan Shoulder and medication tech strengthening, flexibility, ROM, Shoulder stability
--- NOTE | 2020-11-18 16:45 | PT.OPPOC ---
Physical, Occupational & Speech Therapy At [facility] Current Diagnoses Incomplete rotator cuff tear or rupture of right shoulder, not specified as traumatic (11/18/20) Bursitis of right shoulder (11/18/20) Strain of unspecified muscle, fascia and tendon at shoulder and upper arm level, right arm, initial encounter (11/18/20) Visit Care Team Role Provider Type Del Franco MD Attending Provider Physician Referring Provider Specialty: Orthopedic Surgery Address: [address] [place] [address], [phone] Email: [email or web address] Plan Of Care PT-OP-T Assessment and Plan Start: 11/18/20 17:43 Freq: Status: Active Protocol: Document 11/18/20 16:00 DCW (Rec: 11/19/20 17:14 DCW [id number]) Physical Therapy Assessment Rehab Potential Rehabilitation Potential Fair Evaluation Complexity Number of Personal Factors/Comorbidities 1-2 Number of Body Systems Impaired 3 Clinical Presentation at Evaluation Evolving Impairments Impairments Functional Activities, Functional Mobility,Pain, Posture,ROM,Soft Tissue Mobility,Strength,Tone Goals pain Impairment Pt presents with severe pain lifting more than 5 pounds Nurse [employer] Goal (LTG) Pt to exhibit ability to lift 20 pounds with no increased pain LTG Duration 01/19/21 strength Impairment Glazing Superintendent strength R=30#, left=48.3 # Senior Care Goal (LTG) Pt to improve bilateral dermatopathologist strength to >60 lbs to demonstrate ability to return to necessary work duties LTG Duration 01/19/21 ROM Impairment Pt experiences severe pain with flexion and abduction over 90? Senior Care Goal (LTG) Pt to demonstrate pain free ROM to 120? in flexion and abduction LTG Duration 01/19/21 Quickdash Impairment Pt scores 63.64% impairment on quick dash [employer] Goal (LTG) Pt will score <40% on Quickdash to improve his functional mobility and strength to improve his quality of life. LTG Duration 01/19/21 Assessment Summary Assessment Pt presents with signs and symptoms of continued dysfunction secondary to his prior right shoulder injury. Pt has constant pain, is unable to lift anything heavier than 5 pounds, experiences pain with ROM over 90? flexion and abduction, and displays increased tone in his right pec, resulting in forward shift of his humerus. Pt also has generalized weakness and deconditioning due to his decline in function over the last two years since his injury. Bilateral dermatopathologist strength is significantly lower than expected for pt's age and size, with 30 pounds on the right and 48.3 on the left. Unfortunately, pt has undergone skilled PT multiple times since his injury with [id number] effect, and there has not been any overall change to expect a different outcome this time around, but pt is willing to put in any effort required. Physical Therapy Plan Frequency and Duration Frequency of Treatment 2x/Week Duration of Treatment Two months Plan of Care Start Date 11/18/20 Plan of Care End Date 01/19/21 Therapeutic Interventions Therapeutic Interventions Home Exercise Program,Joint Mobilizations,Manual Therapy, Patient/Caregiver Education, Self-Care/Home Management,Soft Tissue Mobilization,Taping, Therapeutic Activities, Therapeutic Exercises Modalities Cold Pack/Ice Massage,Electric Stimulation,Hot Packs, Ultrasound Next Visit Focus/Plan Next Note Type Treatment Note Next Visit Plan Shoulder and dermatopathologist strengthening, flexibility, ROM, Shoulder stability Plan of Care Dates Plan of Care Start Date 11/18/20 Plan of Care End Date 01/19/21 Electronically Signed by: Eddie Bolivar, PT 11/19/20 [id number] Please Sign and Return: I have reviewed this Plan of Care and certify that the skilled therapy services above are required to meet the patient?s needs. Physician Signature Date Printed Name and Credentials Clinical Instructor Signature Printed Name and Credentials
--- NOTE | 2020-12-09 15:23 | PT.OTN ---
Current Diagnoses Incomplete rotator cuff tear or rupture of right shoulder, not specified as traumatic (12/09/20) Bursitis of right shoulder (12/09/20) Strain of unspecified muscle, fascia and tendon at shoulder and upper arm level, right arm, initial encounter (12/09/20) Physical Therapy Treatment Note PT-OP-A Visit Information Start: 11/18/20 17:43 Freq: Status: Active Protocol: Document 12/09/20 12:59 HH (Rec: 12/09/20 15:23 [id number]) Out-Patient Physical Therapy Visit Information Visit Information Visit Type Treatment Note Visit Start Time 13:01 Visit Stop Time 13:45 Total Visit Minutes 44 Visit Number 2 Number of PAPER SUPERVISOR Visits 0 PT-OP-B Current Condition Start: 11/18/20 17:43 Freq: Status: Active Protocol: Document 11/18/20 16:00 DCW (Rec: 11/19/20 11:03 DCW [id number]) Current Condition History of Current Condition Onset Date s/p 23 months Current Complaints Shoulder pain, inability to work History of Current Condition Pt is a 25 year old male with a complicated history of shoulder pain. Pt initially injured his shoulder at work 23 months ago lifting ~50 lb boxes. Pt reports he heard a pop and his right arm went numb. Since that injury, pt has been attending therapy off and on with minimal relief. Pt was found to have a potential partial thickness tear of the supraspinatus and infraspinatus tendons, per MRI on 10/18/19. Per pt today, his request for surgical intervention was denied by L&I , based on an Independent Medical Evaluation. Pt is frustrated by this, feels he will not be able to return to work until he is 100%, and will not get there without surgery, so he is afraid he will lose his job. Pt notes he struggles lifting anything heavier than five pounds, lifting his arm overhead, or being in any position that puts tension on his shoulder. 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 PT-OP-E Functional Tests Start: 11/18/20 17:43 Freq: Status: Active Protocol: Document 11/18/20 16:00 DCW (Rec: 11/19/20 11:05 DCW [id number]) Functional Tests Apley's Scratch Test Action 1- Left Posterior opposite shoulder Action 1- Right Posterior opposite shoulder Action 2- Left T4 Action 2- Right C7 Action 3- Left T6 Action 3- Right T10 PT-OP-F Manual Assessment Start: 11/18/20 17:43 Freq: Status: Active Protocol: Document 11/18/20 16:00 DCW (Rec: 11/19/20 11:12 DCW [id number]) Manual Assessments Soft Tissue Assessment Soft Tissue Mobility Assessment Increased tone and tenderness to palpation 2/4: Pain with wincing along entire shoulder girdle, severe tone in R pec. Joint Mobility Assessment Joint Mobility Assessment ROM relatively WNL, however exhibits pain at end-range, significant crepitus in right GH joint with all movement. Other Manual Assessments Other Manual Assessments No change in pain with distraction or compression of joint PT-OP-K Range of Motion Start: 11/18/20 17:43 Freq: Status: Active Protocol: Document 11/18/20 16:00 DCW (Rec: 11/19/20 11:12 DCW [id number]) Shoulder Goniometric Range of Motion Shoulder Left Active Shoulder ROM WFL Yes Testing Position Sitting Right Active Shoulder ROM WFL Yes Testing Position Sitting Comments Pain with flexion and abduction over 90? PT-OP-M Strength Start: 11/18/20 17:43 Freq: Status: Active Protocol: Document 11/18/20 16:00 DCW (Rec: 11/19/20 11:12 DCW [id number]) Hand Risk Control Consultant/Pinch Strength Hand Strength Right Risk Control Consultant (lbs) 30 Comments Three-trial average (25 lbs, 30 lbs, 35 lbs) Left Risk Control Consultant (lbs) 48.3 Comments Three-trial average (45 lbs, 55 lbs, 45 lbs) PT-OP-Q Treatments Start: 11/18/20 17:43 Freq: Status: Active Protocol: Document 12/09/20 12:59 HH (Rec: 12/09/20 15:23 [id number]) Therapeutic Exercises Supine Exercises SA punch Equipment Used 3 lbs DB Reps/Minutes 10 x2 Comments for HEP Sidelying Exercises open book Side bilateral Reps/Minutes 8 x2 Comments for HEP, R side reaches 120 degrees, L side reaches close to 160 Sitting Exercises OH nohelia Sitting Exercise Name fwd, abd, IR Side bilateral Reps/Minutes 8 mins Standing Exercises lat stretch Side bilateral Equipment Used with double level 4 band Reps/Minutes 10 sec x 5 Manual Therapy Treatment Soft Tissue Mobilization R serratus anterior Mobilization Type Rolling,Sustained Pressure, Trigger Point Release Intensity/Depth Superficial Body Position Sidelying Comments significant tenderness to light pressure at serratus anterior R lat Mobilization Type Sustained Pressure,Trigger Point Release Intensity/Depth Superficial Body Position Sidelying Comments significant tenderness to light pressure at lateral lat and serratus anterior PT-OP-T Assessment and Plan Start: 11/18/20 17:43 Freq: Status: Active Protocol: Document 12/09/20 12:59 (Rec: 12/09/20 15:23 [id number]) Physical Therapy Assessment Goals pain Impairment Pt presents with severe pain lifting more than 5 pounds Senior Care Goal (LTG) Pt to exhibit ability to lift 20 pounds with no increased pain LTG Duration 01/19/21 strength Impairment Risk Control Consultant strength R=30#, left=48.3 # Senior Care Goal (LTG) Pt to improve bilateral procedure rn strength to >60 lbs to demonstrate ability to return to necessary work duties LTG Duration 01/19/21 ROM Impairment Pt experiences severe pain with flexion and abduction over 90? Feed Crusher Operator Goal (LTG) Pt to demonstrate pain free ROM to 120? in flexion and abduction LTG Duration 01/19/21 Quickdash Impairment Pt scores 63.64% impairment on quick dash Senior Care Goal (LTG) Pt will score <40% on Quickdash to improve his functional mobility and strength to improve his quality of life. 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 Pt reports he rests his R arm on table 6-8 hours a day. Provided lat stretch and SA punch for HEP. Physical Therapy Plan Frequency and Duration Frequency of Treatment 2x/Week Duration of Treatment Two months Plan of Care Start Date 11/18/20 Plan of Care End Date 01/19/21 Next Visit Focus/Plan Next Note Type Treatment Note Next Visit Plan Shoulder and procedure rn strengthening, flexibility, ROM, Shoulder stability
--- NOTE | 2020-12-23 16:15 | PT.OTN ---
Current Diagnoses Incomplete rotator cuff tear or rupture of right shoulder, not specified as traumatic (12/23/20) Bursitis of right shoulder (12/23/20) Strain of unspecified muscle, fascia and tendon at shoulder and upper arm level, right arm, initial encounter (12/23/20) Physical Therapy Treatment Note PT-OP-A Visit Information Start: 11/18/20 17:43 Freq: Status: Active Protocol: Document 12/23/20 14:36 HH (Rec: 12/23/20 16:14 [id number]) Out-Patient Physical Therapy Visit Information Visit Information Visit Type Treatment Note Visit Start Time 14:32 Visit Stop Time 15:15 Total Visit Minutes 43 Visit Number 3 Number of SOLID PROPELLANT PROCESSOR Visits 0 PT-OP-B Current Condition Start: 11/18/20 17:43 Freq: Status: Active Protocol: Document 11/18/20 16:00 DCW (Rec: 11/19/20 11:03 DCW [id number]) Current Condition History of Current Condition Onset Date s/p 23 months Current Complaints Shoulder pain, inability to work History of Current Condition Pt is a 25 year old male with a complicated history of shoulder pain. Pt initially injured his shoulder at work 23 months ago lifting ~50 lb boxes. Pt reports he heard a pop and his right arm went numb. Since that injury, pt has been attending therapy off and on with minimal relief. Pt was found to have a potential partial thickness tear of the supraspinatus and infraspinatus tendons, per MRI on 10/18/19. Per pt today, his request for surgical intervention was denied by L&I , based on an Independent Medical Evaluation. Pt is frustrated by this, feels he will not be able to return to work until he is 100%, and will not get there without surgery, so he is afraid he will lose his job. Pt notes he struggles lifting anything heavier than five pounds, lifting his arm overhead, or being in any position that puts tension on his shoulder. Prior Treatments and Tests Previous PT MRI PT-OP-C Subjective Start: 11/18/20 17:43 Freq: Status: Active Protocol: Document 12/23/20 14:36 HH (Rec: 12/23/20 16:14 HH [id number]) OP-PT Subjective Patient Comments Patient Comments My last few days has been hurting out of nowhere. Patient Reported Progress Same PT-OP-E Functional Tests Start: 11/18/20 17:43 Freq: Status: Active Protocol: Document 11/18/20 16:00 DCW (Rec: 11/19/20 11:05 DCW [id number]) Functional Tests Apley's Scratch Test Action 1- Left Posterior opposite shoulder Action 1- Right Posterior opposite shoulder Action 2- Left T4 Action 2- Right C7 Action 3- Left T6 Action 3- Right T10 PT-OP-F Manual Assessment Start: 11/18/20 17:43 Freq: Status: Active Protocol: Document 11/18/20 16:00 DCW (Rec: 11/19/20 11:12 DCW [id number]) Manual Assessments Soft Tissue Assessment Soft Tissue Mobility Assessment Increased tone and tenderness to palpation 2/4: Pain with wincing along entire shoulder girdle, severe tone in R pec. Joint Mobility Assessment Joint Mobility Assessment ROM relatively WNL, however exhibits pain at end-range, significant crepitus in right GH joint with all movement. Other Manual Assessments Other Manual Assessments No change in pain with distraction or compression of joint PT-OP-K Range of Motion Start: 11/18/20 17:43 Freq: Status: Active Protocol: Document 11/18/20 16:00 DCW (Rec: 11/19/20 11:12 DCW [id number]) Shoulder Goniometric Range of Motion Shoulder Left Active Shoulder ROM WFL Yes Testing Position Sitting Right Active Shoulder ROM WFL Yes Testing Position Sitting Comments Pain with flexion and abduction over 90? PT-OP-M Strength Start: 11/18/20 17:43 Freq: Status: Active Protocol: Document 11/18/20 16:00 DCW (Rec: 11/19/20 11:12 DCW [id number]) Hand Train Crew Member/Pinch Strength Hand Strength Right Train Crew Member (lbs) 30 Comments Three-trial average (25 lbs, 30 lbs, 35 lbs) Left Train Crew Member (lbs) 48.3 Comments Three-trial average (45 lbs, 55 lbs, 45 lbs) PT-OP-Q Treatments Start: 11/18/20 17:43 Freq: Status: Active Protocol: Document 12/23/20 14:36 HH (Rec: 12/23/20 16:14 HH [id number]) Therapeutic Exercises Supine Exercises SA punch Equipment Used 3 lbs DB Reps/Minutes 10 x2 Comments for HEP Sidelying Exercises shd abd Equipment Used 3lbs DB Reps/Minutes 8x2 hor scap abduction Reps/Minutes 8 x2 open book Side bilateral Reps/Minutes 8 x2 Comments for HEP, R side reaches 120 degrees, L side reaches close to 160 shoulder ER Equipment Used 3lbs DB Reps/Minutes 10x2 Sitting Exercises OH nohelia Sitting Exercise Name fwd, abd, IR Side bilateral Reps/Minutes 8 mins Standing Exercises lat stretch Side bilateral Equipment Used with double level 4 band Reps/Minutes 10 sec x 5 Manual Therapy Treatment Soft Tissue Mobilization R serratus anterior Mobilization Type Rolling,Sustained Pressure, Trigger Point Release Intensity/Depth Superficial Body Position Sidelying Comments significant tenderness to light pressure at serratus anterior R lat Mobilization Type Sustained Pressure,Trigger Point Release Intensity/Depth Superficial Body Position Sidelying Comments less tenderness noted PT-OP-T Assessment and Plan Start: 11/18/20 17:43 Freq: Status: Active Protocol: Document 12/23/20 14:36 (Rec: 12/23/20 16:14 [id number]) Physical Therapy Assessment Goals pain Impairment Pt presents with severe pain lifting more than 5 pounds Surface Supply Breathing Apparatus Goal (LTG) Pt to exhibit ability to lift 20 pounds with no increased pain LTG Duration 01/19/21 strength Impairment Train Crew Member strength R=30#, left=48.3 # Surface Supply Breathing Apparatus Goal (LTG) Pt to improve bilateral public defender strength to >60 lbs to demonstrate ability to return to necessary work duties LTG Duration 01/19/21 ROM Impairment Pt experiences severe pain with flexion and abduction over 90? Surface Supply Breathing Apparatus Goal (LTG) Pt to demonstrate pain free ROM to 120? in flexion and abduction LTG Duration 01/19/21 Quickdash Impairment Pt scores 63.64% impairment on quick dash Usp Goal (LTG) Pt will score <40% on Quickdash to improve his functional mobility and strength to improve his quality of life. LTG Duration 01/19/21 Assessment Summary Assessment Pt cont to have consistent pain at R shoulder. He stated There's nothing specifially helping my pain, it has been 2 years. Physical Therapy Plan Frequency and Duration Frequency of Treatment 2x/Week Duration of Treatment Two months Plan of Care Start Date 12/22/20 Plan of Care End Date 01/19/21 Next Visit Focus/Plan Next Note Type Treatment Note Next Visit Plan Shoulder and public defender strengthening, flexibility, ROM, Shoulder stability
--- NOTE | 2020-12-30 15:14 | PT.OTN ---
Current Diagnoses Incomplete rotator cuff tear or rupture of right shoulder, not specified as traumatic (12/30/20) Bursitis of right shoulder (12/30/20) Strain of unspecified muscle, fascia and tendon at shoulder and upper arm level, right arm, initial encounter (12/30/20) Physical Therapy Treatment Note PT-OP-A Visit Information Start: 11/18/20 17:43 Freq: Status: Active Protocol: Document 12/30/20 14:33 HH (Rec: 12/30/20 15:14 [id number]) Out-Patient Physical Therapy Visit Information Visit Information Visit Type Treatment Note Visit Start Time 14:32 Visit Stop Time 15:15 Total Visit Minutes 43 Visit Number 4 Number of DATER ASSEMBLER Visits 0 PT-OP-B Current Condition Start: 11/18/20 17:43 Freq: Status: Active Protocol: Document 11/18/20 16:00 DCW (Rec: 11/19/20 11:03 DCW [id number]) Current Condition History of Current Condition Onset Date s/p 23 months Current Complaints Shoulder pain, inability to work History of Current Condition Pt is a 25 year old male with a complicated history of shoulder pain. Pt initially injured his shoulder at work 23 months ago lifting ~50 lb boxes. Pt reports he heard a pop and his right arm went numb. Since that injury, pt has been attending therapy off and on with minimal relief. Pt was found to have a potential partial thickness tear of the supraspinatus and infraspinatus tendons, per MRI on 10/18/19. Per pt today, his request for surgical intervention was denied by L&I , based on an Independent Medical Evaluation. Pt is frustrated by this, feels he will not be able to return to work until he is 100%, and will not get there without surgery, so he is afraid he will lose his job. Pt notes he struggles lifting anything heavier than five pounds, lifting his arm overhead, or being in any position that puts tension on his shoulder. Prior Treatments and Tests Previous PT MRI PT-OP-C Subjective Start: 11/18/20 17:43 Freq: Status: Active Protocol: Document 12/30/20 14:33 HH (Rec: 12/30/20 15:14 HH [id number]) OP-PT Subjective Patient Comments Patient Comments Its same old and nothing new . Patient Reported Progress Same PT-OP-E Functional Tests Start: 11/18/20 17:43 Freq: Status: Active Protocol: Document 11/18/20 16:00 DCW (Rec: 11/19/20 11:05 DCW [id number]) Functional Tests Apley's Scratch Test Action 1- Left Posterior opposite shoulder Action 1- Right Posterior opposite shoulder Action 2- Left T4 Action 2- Right C7 Action 3- Left T6 Action 3- Right T10 PT-OP-F Manual Assessment Start: 11/18/20 17:43 Freq: Status: Active Protocol: Document 11/18/20 16:00 DCW (Rec: 11/19/20 11:12 DCW [id number]) Manual Assessments Soft Tissue Assessment Soft Tissue Mobility Assessment Increased tone and tenderness to palpation 2/4: Pain with wincing along entire shoulder girdle, severe tone in R pec. Joint Mobility Assessment Joint Mobility Assessment ROM relatively WNL, however exhibits pain at end-range, significant crepitus in right GH joint with all movement. Other Manual Assessments Other Manual Assessments No change in pain with distraction or compression of joint PT-OP-K Range of Motion Start: 11/18/20 17:43 Freq: Status: Active Protocol: Document 11/18/20 16:00 DCW (Rec: 11/19/20 11:12 DCW [id number]) Shoulder Goniometric Range of Motion Shoulder Left Active Shoulder ROM WFL Yes Testing Position Sitting Right Active Shoulder ROM WFL Yes Testing Position Sitting Comments Pain with flexion and abduction over 90? PT-OP-M Strength Start: 11/18/20 17:43 Freq: Status: Active Protocol: Document 11/18/20 16:00 DCW (Rec: 11/19/20 11:12 DCW [id number]) Hand Receptionist Airline Lounge/Pinch Strength Hand Strength Right Receptionist Airline Lounge (lbs) 30 Comments Three-trial average (25 lbs, 30 lbs, 35 lbs) Left Receptionist Airline Lounge (lbs) 48.3 Comments Three-trial average (45 lbs, 55 lbs, 45 lbs) PT-OP-Q Treatments Start: 11/18/20 17:43 Freq: Status: Active Protocol: Document 12/30/20 14:33 HH (Rec: 12/30/20 15:14 HH [id number]) Gym Equipment Cable Column (Body Solid) Rows Resistance #50 Reps/Time 8 x3 Therapeutic Exercises Supine Exercises SA punch Equipment Used 3 lbs DB Reps/Minutes 10 x2 Comments for HEP Prone Exercises prone Y,I,T Prone Exercise Name unilateral T Side bilateral Reps/Minutes 8 x2 Sidelying Exercises shd abd Equipment Used 3lbs DB Reps/Minutes 8x2 horziontal abd Side bilateral Equipment Used 3# Reps/Minutes 8 x2 open book Side bilateral Reps/Minutes 8 x2 shoulder ER Equipment Used 3lbs DB Reps/Minutes 10x2 Sitting Exercises OH nohelia Sitting Exercise Name fwd, abd, IR Side bilateral Reps/Minutes 8 mins Manual Therapy Treatment Soft Tissue Mobilization R serratus anterior Mobilization Type Rolling,Sustained Pressure, Trigger Point Release Intensity/Depth Superficial Body Position Sidelying Comments significant tenderness to light pressure at serratus anterior R lat Mobilization Type Sustained Pressure,Trigger Point Release Intensity/Depth Superficial Body Position Sidelying Comments less tenderness noted PT-OP-T Assessment and Plan Start: 11/18/20 17:43 Freq: Status: Active Protocol: Document 12/30/20 14:33 (Rec: 12/30/20 15:14 [id number]) Physical Therapy Assessment Goals pain Impairment Pt presents with severe pain lifting more than 5 pounds Equipment Processor Goal (LTG) Pt to exhibit ability to lift 20 pounds with no increased pain LTG Duration 01/19/21 strength Impairment Receptionist Airline Lounge strength R=30#, left=48.3 # Shelter Goal (LTG) Pt to improve bilateral manager electrical strength to >60 lbs to demonstrate ability to return to necessary work duties LTG Duration 01/19/21 ROM Impairment Pt experiences severe pain with flexion and abduction over 90? Equipment Processor Goal (LTG) Pt to demonstrate pain free ROM to 120? in flexion and abduction LTG Duration 01/19/21 Quickdash Impairment Pt scores 63.64% impairment on quick dash Shelter Goal (LTG) Pt will score <40% on Quickdash to improve his functional mobility and strength to improve his quality of life. LTG Duration 01/19/21 Assessment Summary Assessment Pt negra session well with focus on scap stabilization and overall strnegthening. Physical Therapy Plan Frequency and Duration Frequency of Treatment 2x/Week Duration of Treatment Two months Plan of Care Start Date 11/18/20 Plan of Care End Date 01/19/21 Next Visit Focus/Plan Next Note Type Treatment Note Next Visit Plan Shoulder and manager electrical strengthening, flexibility, ROM, Shoulder stability
--- NOTE | 2021-01-01 16:47 | PT.OTN ---
Current Diagnoses Incomplete rotator cuff tear or rupture of right shoulder, not specified as traumatic (01/01/21) Bursitis of right shoulder (01/01/21) Strain of unspecified muscle, fascia and tendon at shoulder and upper arm level, right arm, initial encounter (01/01/21) Physical Therapy Treatment Note PT-OP-A Visit Information Start: 11/18/20 17:43 Freq: Status: Active Protocol: Document 01/01/21 16:00 DCW (Rec: 01/01/21 16:47 DCW [id number]) Out-Patient Physical Therapy Visit Information Visit Information Visit Type Treatment Note Visit Start Time 16:00 Visit Stop Time 16:45 Total Visit Minutes 45 Visit Number 5 Number of EMAIL PRODUCTION SPECIALIST Visits 0 Evaluation Information Evaluation Date 11/18/20 PT-OP-B Current Condition Start: 11/18/20 17:43 Freq: Status: Active Protocol: Document 11/18/20 16:00 DCW (Rec: 11/19/20 11:03 DCW [id number]) Current Condition History of Current Condition Onset Date s/p 23 months Current Complaints Shoulder pain, inability to work History of Current Condition Pt is a 25 year old male with a complicated history of shoulder pain. Pt initially injured his shoulder at work 23 months ago lifting ~50 lb boxes. Pt reports he heard a pop and his right arm went numb. Since that injury, pt has been attending therapy off and on with minimal relief. Pt was found to have a potential partial thickness tear of the supraspinatus and infraspinatus tendons, per MRI on 10/18/19. Per pt today, his request for surgical intervention was denied by L&I , based on an Independent Medical Evaluation. Pt is frustrated by this, feels he will not be able to return to work until he is 100%, and will not get there without surgery, so he is afraid he will lose his job. Pt notes he struggles lifting anything heavier than five pounds, lifting his arm overhead, or being in any position that puts tension on his shoulder. Prior Treatments and Tests Previous PT MRI PT-OP-C Subjective Start: 11/18/20 17:43 Freq: Status: Active Protocol: Document 01/01/21 16:00 DCW (Rec: 01/01/21 16:47 DCW [id number]) OP-PT Subjective Patient Comments Patient Comments There hasn't been any change. Patient Reported Progress Same PT-OP-E Functional Tests Start: 11/18/20 17:43 Freq: Status: Active Protocol: Document 11/18/20 16:00 DCW (Rec: 11/19/20 11:05 DCW [id number]) Functional Tests Apley's Scratch Test Action 1- Left Posterior opposite shoulder Action 1- Right Posterior opposite shoulder Action 2- Left T4 Action 2- Right C7 Action 3- Left T6 Action 3- Right T10 PT-OP-F Manual Assessment Start: 11/18/20 17:43 Freq: Status: Active Protocol: Document 11/18/20 16:00 DCW (Rec: 11/19/20 11:12 DCW [id number]) Manual Assessments Soft Tissue Assessment Soft Tissue Mobility Assessment Increased tone and tenderness to palpation 2/4: Pain with wincing along entire shoulder girdle, severe tone in R pec. Joint Mobility Assessment Joint Mobility Assessment ROM relatively WNL, however exhibits pain at end-range, significant crepitus in right GH joint with all movement. Other Manual Assessments Other Manual Assessments No change in pain with distraction or compression of joint PT-OP-K Range of Motion Start: 11/18/20 17:43 Freq: Status: Active Protocol: Document 11/18/20 16:00 DCW (Rec: 11/19/20 11:12 DCW [id number]) Shoulder Goniometric Range of Motion Shoulder Left Active Shoulder ROM WFL Yes Testing Position Sitting Right Active Shoulder ROM WFL Yes Testing Position Sitting Comments Pain with flexion and abduction over 90? PT-OP-M Strength Start: 11/18/20 17:43 Freq: Status: Active Protocol: Document 11/18/20 16:00 DCW (Rec: 11/19/20 11:12 DCW [id number]) Hand Steersman/Pinch Strength Hand Strength Right Steersman (lbs) 30 Comments Three-trial average (25 lbs, 30 lbs, 35 lbs) Left Steersman (lbs) 48.3 Comments Three-trial average (45 lbs, 55 lbs, 45 lbs) PT-OP-Q Treatments Start: 11/18/20 17:43 Freq: Status: Active Protocol: Document 01/01/21 16:00 DCW (Rec: 01/01/21 16:46 DCW [id number]) Therapeutic Exercises Prone Exercises prone Y,I,T Prone Exercise Name unilateral T Side bilateral Reps/Minutes 8 x2 Sidelying Exercises shd abd Equipment Used 3lbs DB Reps/Minutes 8x2 shoulder ER Equipment Used 3lbs DB Reps/Minutes 10x2 Sitting Exercises OH nohelia Sitting Exercise Name fwd, abd, IR Side bilateral Reps/Minutes 8 mins Standing Exercises shoulder flexion Standing Exercise Name sh flex, abd Side bilateral Resistance 3# Manual Therapy Treatment Soft Tissue Mobilization R serratus anterior Mobilization Type Rolling,Sustained Pressure, Trigger Point Release Intensity/Depth Superficial Body Position Sidelying Comments significant tenderness to light pressure at serratus anterior R lat Mobilization Type Sustained Pressure,Trigger Point Release Intensity/Depth Superficial Body Position Sidelying Comments less tenderness noted PT-OP-T Assessment and Plan Start: 11/18/20 17:43 Freq: Status: Active Protocol: Document 01/01/21 16:00 DCW (Rec: 01/01/21 16:46 DCW [id number]) Physical Therapy Assessment Goals pain Impairment Pt presents with severe pain lifting more than 5 pounds Fdc Goal (LTG) Pt to exhibit ability to lift 20 pounds with no increased pain LTG Duration 01/19/21 strength Impairment Steersman strength R=30#, left=48.3 # Grocery Store Manager Goal (LTG) Pt to improve bilateral stained glass glazier helper strength to >60 lbs to demonstrate ability to return to necessary work duties LTG Duration 01/19/21 ROM Impairment Pt experiences severe pain with flexion and abduction over 90? Fdc Goal (LTG) Pt to demonstrate pain free ROM to 120? in flexion and abduction LTG Duration 01/19/21 Quickdash Impairment Pt scores 63.64% impairment on quick dash Grocery Store Manager Goal (LTG) Pt will score <40% on Quickdash to improve his functional mobility and strength to improve his quality of life. LTG Duration 01/19/21 Assessment Summary Assessment Pt experiencing no real change in status. Pt reported fatigue and weakness with all shoulder movements using weights. Physical Therapy Plan Frequency and Duration Frequency of Treatment 2x/Week Duration of Treatment Two months Plan of Care Start Date 11/18/20 Plan of Care End Date 01/19/21 Next Visit Focus/Plan Next Note Type Treatment Note Next Visit Plan Shoulder and stained glass glazier helper strengthening, flexibility, ROM, Shoulder stability
--- NOTE | 2021-01-13 15:15 | PT.OTN ---
Current Diagnoses Incomplete rotator cuff tear or rupture of right shoulder, not specified as traumatic (01/13/21) Bursitis of right shoulder (01/13/21) Strain of unspecified muscle, fascia and tendon at shoulder and upper arm level, right arm, initial encounter (01/13/21) Physical Therapy Treatment Note PT-OP-A Visit Information Start: 11/18/20 17:43 Freq: Status: Active Protocol: Document 01/13/21 14:30 DCW (Rec: 01/13/21 15:15 DCW [id number]) Out-Patient Physical Therapy Visit Information Visit Information Visit Type Treatment Note Visit Start Time 14:30 Visit Stop Time 15:15 Total Visit Minutes 45 Visit Number 6 Number of LIGHT RAIL SIGNAL TECHNICIAN Visits 0 Evaluation Information Evaluation Date 11/18/20 PT-OP-B Current Condition Start: 11/18/20 17:43 Freq: Status: Active Protocol: Document 11/18/20 16:00 DCW (Rec: 11/19/20 11:03 DCW [id number]) Current Condition History of Current Condition Onset Date s/p 23 months Current Complaints Shoulder pain, inability to work History of Current Condition Pt is a 25 year old male with a complicated history of shoulder pain. Pt initially injured his shoulder at work 23 months ago lifting ~50 lb boxes. Pt reports he heard a pop and his right arm went numb. Since that injury, pt has been attending therapy off and on with minimal relief. Pt was found to have a potential partial thickness tear of the supraspinatus and infraspinatus tendons, per MRI on 10/18/19. Per pt today, his request for surgical intervention was denied by L&I , based on an Independent Medical Evaluation. Pt is frustrated by this, feels he will not be able to return to work until he is 100%, and will not get there without surgery, so he is afraid he will lose his job. Pt notes he struggles lifting anything heavier than five pounds, lifting his arm overhead, or being in any position that puts tension on his shoulder. Prior Treatments and Tests Previous PT MRI PT-OP-C Subjective Start: 11/18/20 17:43 Freq: Status: Active Protocol: Document 01/13/21 14:30 DCW (Rec: 01/13/21 15:15 DCW [id number]) OP-PT Subjective Patient Comments Patient Comments Pt reports he has not noticed any change since restarting PT . PT-OP-E Functional Tests Start: 11/18/20 17:43 Freq: Status: Active Protocol: Document 11/18/20 16:00 DCW (Rec: 11/19/20 11:05 DCW [id number]) Functional Tests Apley's Scratch Test Action 1- Left Posterior opposite shoulder Action 1- Right Posterior opposite shoulder Action 2- Left T4 Action 2- Right C7 Action 3- Left T6 Action 3- Right T10 PT-OP-F Manual Assessment Start: 11/18/20 17:43 Freq: Status: Active Protocol: Document 11/18/20 16:00 DCW (Rec: 11/19/20 11:12 DCW [id number]) Manual Assessments Soft Tissue Assessment Soft Tissue Mobility Assessment Increased tone and tenderness to palpation 2/4: Pain with wincing along entire shoulder girdle, severe tone in R pec. Joint Mobility Assessment Joint Mobility Assessment ROM relatively WNL, however exhibits pain at end-range, significant crepitus in right GH joint with all movement. Other Manual Assessments Other Manual Assessments No change in pain with distraction or compression of joint PT-OP-K Range of Motion Start: 11/18/20 17:43 Freq: Status: Active Protocol: Document 11/18/20 16:00 DCW (Rec: 11/19/20 11:12 DCW [id number]) Shoulder Goniometric Range of Motion Shoulder Left Active Shoulder ROM WFL Yes Testing Position Sitting Right Active Shoulder ROM WFL Yes Testing Position Sitting Comments Pain with flexion and abduction over 90? PT-OP-M Strength Start: 11/18/20 17:43 Freq: Status: Active Protocol: Document 11/18/20 16:00 DCW (Rec: 11/19/20 11:12 DCW [id number]) Hand Multi Purpose Machine Operator/Pinch Strength Hand Strength Right Multi Purpose Machine Operator (lbs) 30 Comments Three-trial average (25 lbs, 30 lbs, 35 lbs) Left Multi Purpose Machine Operator (lbs) 48.3 Comments Three-trial average (45 lbs, 55 lbs, 45 lbs) PT-OP-Q Treatments Start: 11/18/20 17:43 Freq: Status: Active Protocol: Document 01/13/21 14:30 DCW (Rec: 01/13/21 15:15 DCW [id number]) Gym Equipment Cable Column (Body Solid) Rows Resistance #50 Reps/Time 2x10 Therapeutic Exercises Sidelying Exercises shd abd Equipment Used 3lbs DB Reps/Minutes 8x2 horziontal abd Side bilateral Equipment Used 3# Reps/Minutes 8 x2 shoulder ER Equipment Used 3lbs DB Reps/Minutes 10x2 Sitting Exercises OH nohelia Sitting Exercise Name fwd, abd, IR Side bilateral Reps/Minutes 8 mins Standing Exercises shoulder flexion Standing Exercise Name sh flex, abd Side bilateral Resistance 3# Manual Therapy Treatment Soft Tissue Mobilization R serratus anterior Mobilization Type Rolling,Sustained Pressure, Trigger Point Release Intensity/Depth Superficial Body Position Sidelying Comments significant tenderness to light pressure at serratus anterior R lat Mobilization Type Sustained Pressure,Trigger Point Release Intensity/Depth Superficial Body Position Sidelying Comments less tenderness noted PT-OP-T Assessment and Plan Start: 11/18/20 17:43 Freq: Status: Active Protocol: Document 01/13/21 14:30 DCW (Rec: 01/13/21 15:15 DCW [id number]) Physical Therapy Assessment Impairments Impairments Functional Activities, Functional Mobility,Pain, Posture,ROM,Soft Tissue Mobility,Strength,Tone Goals pain Impairment Pt presents with severe pain lifting more than 5 pounds Back Seam Stitcher Goal (LTG) Pt to exhibit ability to lift 20 pounds with no increased pain LTG Duration 01/19/21 strength Impairment Multi Purpose Machine Operator strength R=30#, left=48.3 # Mcc Goal (LTG) Pt to improve bilateral behavioral health specialist strength to >60 lbs to demonstrate ability to return to necessary work duties LTG Duration 01/19/21 ROM Impairment Pt experiences severe pain with flexion and abduction over 90? Mcc Goal (LTG) Pt to demonstrate pain free ROM to 120? in flexion and abduction LTG Duration 01/19/21 Quickdash Impairment Pt scores 63.64% impairment on quick dash Back Seam Stitcher Goal (LTG) Pt will score <40% on Quickdash to improve his functional mobility and strength to improve his quality of life. LTG Duration 01/19/21 Assessment Summary Assessment Pt continues to show no progression from baseline. Working on strength and stabilization. Physical Therapy Plan Frequency and Duration Frequency of Treatment 2x/Week Duration of Treatment Two months Plan of Care Start Date 11/18/20 Plan of Care End Date 01/19/21 Next Visit Focus/Plan Next Note Type Treatment Note Next Visit Plan Shoulder and behavioral health specialist strengthening, flexibility, ROM, Shoulder stability
--- NOTE | 2021-01-20 15:29 | PT.OTN ---
Current Diagnoses Incomplete rotator cuff tear or rupture of right shoulder, not specified as traumatic (01/20/21) Bursitis of right shoulder (01/20/21) Strain of unspecified muscle, fascia and tendon at shoulder and upper arm level, right arm, initial encounter (01/20/21) Physical Therapy Treatment Note PT-OP-A Visit Information Start: 11/18/20 17:43 Freq: Status: Active Protocol: Document 01/20/21 14:30 DCW (Rec: 01/20/21 15:29 DCW [id number]) Out-Patient Physical Therapy Visit Information Visit Information Visit Type Progress Note Visit Start Time 14:30 Visit Stop Time 15:15 Total Visit Minutes 45 Visit Number 7 Number of HOME HEALTH NURSE LICENSED PRACTICAL Visits 0 Evaluation Information Evaluation Date 11/18/20 PT-OP-B Current Condition Start: 11/18/20 17:43 Freq: Status: Active Protocol: Document 11/18/20 16:00 DCW (Rec: 11/19/20 11:03 DCW [id number]) Current Condition History of Current Condition Onset Date s/p 23 months Current Complaints Shoulder pain, inability to work History of Current Condition Pt is a 25 year old male with a complicated history of shoulder pain. Pt initially injured his shoulder at work 23 months ago lifting ~50 lb boxes. Pt reports he heard a pop and his right arm went numb. Since that injury, pt has been attending therapy off and on with minimal relief. Pt was found to have a potential partial thickness tear of the supraspinatus and infraspinatus tendons, per MRI on 10/18/19. Per pt today, his request for surgical intervention was denied by L&I , based on an Independent Medical Evaluation. Pt is frustrated by this, feels he will not be able to return to work until he is 100%, and will not get there without surgery, so he is afraid he will lose his job. Pt notes he struggles lifting anything heavier than five pounds, lifting his arm overhead, or being in any position that puts tension on his shoulder. Prior Treatments and Tests Previous PT MRI PT-OP-C Subjective Start: 11/18/20 17:43 Freq: Status: Active Protocol: Document 01/20/21 14:30 DCW (Rec: 01/20/21 15:29 DCW [id number]) OP-PT Subjective Patient Comments Patient Comments Pt actually feeling pretty optimistic today after speaking with his L&I pillowcase cleaner. Notes he might be able to get a referral for a secondary consult, which may lead to a second surgery. PT-OP-E Functional Tests Start: 11/18/20 17:43 Freq: Status: Active Protocol: Document 01/20/21 14:30 DCW (Rec: 01/20/21 14:44 DCW [id number]) Functional Tests Apley's Scratch Test Action 1- Left Posterior opposite shoulder Action 1- Right Posterior opposite shoulder Action 2- Left T4 Action 2- Right T2 Action 3- Left T6 Action 3- Right T10 PT-OP-F Manual Assessment Start: 11/18/20 17:43 Freq: Status: Active Protocol: Document 01/20/21 14:30 DCW (Rec: 01/20/21 14:44 DCW [id number]) Manual Assessments Soft Tissue Assessment Soft Tissue Mobility Assessment Increased tone and tenderness to palpation 12/01: Complaint of pain with wincing along entire shoulder girdle, severe tone in R pec. Joint Mobility Assessment Joint Mobility Assessment ROM relatively WNL, however exhibits pain at end-range, significant crepitus in right GH joint with all movement. Other Manual Assessments Other Manual Assessments No change in pain with distraction or compression of joint PT-OP-K Range of Motion Start: 11/18/20 17:43 Freq: Status: Active Protocol: Document 01/20/21 14:30 DCW (Rec: 01/20/21 14:44 DCW [id number]) Shoulder Goniometric Range of Motion Shoulder Left Active Shoulder ROM WFL Yes Testing Position Sitting Right Active Shoulder ROM WFL Yes Testing Position Sitting Comments Pain with flexion and abduction over 90? PT-OP-M Strength Start: 11/18/20 17:43 Freq: Status: Active Protocol: Document 01/20/21 14:30 DCW (Rec: 01/20/21 14:44 DCW [id number]) Hand Marker Maker/Pinch Strength Hand Strength Right Marker Maker (lbs) 53.3 Comments Three-trial average (45 lbs, 60 lbs, 55 lbs) Left Marker Maker (lbs) 53.3 Comments Three-trial average (50 lbs, 50 lbs, 65 lbs) PT-OP-Q Treatments Start: 11/18/20 17:43 Freq: Status: Active Protocol: Document 01/20/21 14:30 DCW (Rec: 01/20/21 15:29 DCW [id number]) Manual Therapy Treatment Soft Tissue Mobilization R serratus anterior Mobilization Type Rolling,Sustained Pressure, Trigger Point Release Intensity/Depth Superficial Body Position Sidelying Comments significant tenderness to light pressure at serratus anterior R lat Mobilization Type Sustained Pressure,Trigger Point Release Intensity/Depth Superficial Body Position Sidelying Comments less tenderness noted STM Body Location R pec, infraspinatus Mobilization Type Strumming,Sustained Pressure, Trigger Point Release Intensity/Depth Deep Body Position Sidelying Comments slight discomfort at infrapsinatus more at AC joint Joint Mobilizations GH 2 Joint GH joint R Direction inferior and posterior Grade II Body Position Supine Reps/Duration 10 sec x 8 Other Other Manual Treatments Testing PT-OP-T Assessment and Plan Start: 11/18/20 17:43 Freq: Status: Active Protocol: Document 01/20/21 14:30 DCW (Rec: 01/20/21 15:29 DCW [id number]) Physical Therapy Assessment Impairments Impairments Functional Activities, Functional Mobility,Pain, Posture,ROM,Soft Tissue Mobility,Strength,Tone Goals pain Impairment Pt presents with severe pain lifting more than 5 pounds Paint Crew Supervisor Goal (LTG) Pt to exhibit ability to lift 20 pounds with no increased pain LTG Duration 03/20/21 strength Impairment Marker Maker strength R=30#, left=48.3 # Residential Goal (LTG) Pt to improve bilateral knockup worker strength to >60 lbs to demonstrate ability to return to necessary work duties LTG Duration 03/20/21 ROM Impairment Pt experiences severe pain with flexion and abduction over 90? Paint Crew Supervisor Goal (LTG) Pt to demonstrate pain free ROM to 120? in flexion and abduction LTG Duration 03/20/21 Quickdash Impairment Pt scores 63.64% impairment on quick dash Paint Crew Supervisor Goal (LTG) Pt will score <40% on Quickdash to improve his functional mobility and strength to improve his quality of life. LTG Duration 03/20/21 Assessment Summary Assessment Pt actually showing improvement in knockup worker strength, right side improving from 30 lbs to 53 lbs. Mild improvements with ROM. Pt still has increased pain with most ROM, today tested positive apprehension test and positive grind labrum test may be suggestive of labral involvement. Continued skilled PT suggested at this time to maximize pain-free ROM and increased knockup worker strength. Physical Therapy Plan Frequency and Duration Frequency of Treatment 2x/Week Duration of Treatment Two months Plan of Care Start Date 01/20/21 Plan of Care End Date 03/20/21 Next Visit Focus/Plan Next Note Type Treatment Note Next Visit Plan Shoulder and knockup worker strengthening, flexibility, ROM, Shoulder stability
--- NOTE | 2021-01-20 15:30 | PT.OPPOC ---
Physical, Occupational & Speech Therapy At [facility] Current Diagnoses Incomplete rotator cuff tear or rupture of right shoulder, not specified as traumatic (01/20/21) Bursitis of right shoulder (01/20/21) Strain of unspecified muscle, fascia and tendon at shoulder and upper arm level, right arm, initial encounter (01/20/21) Visit Care Team Role Provider Type Del Franco MD Attending Provider Physician Referring Provider Specialty: Orthopedic Surgery Address: [address] [place] [address], [id number] Email: [email or web address] Plan Of Care PT-OP-T Assessment and Plan Start: 11/18/20 17:43 Freq: Status: Active Protocol: Document 01/20/21 14:30 DCW (Rec: 01/20/21 15:29 DCW [id number]) Physical Therapy Assessment Impairments Impairments Functional Activities, Functional Mobility,Pain, Posture,ROM,Soft Tissue Mobility,Strength,Tone Goals pain Impairment Pt presents with severe pain lifting more than 5 pounds Heat Treater Goal (LTG) Pt to exhibit ability to lift 20 pounds with no increased pain LTG Duration 03/20/21 strength Impairment Furnace Maintenance strength R=30#, left=48.3 # Heat Treater Goal (LTG) Pt to improve bilateral humanities department chair strength to >60 lbs to demonstrate ability to return to necessary work duties LTG Duration 03/20/21 ROM Impairment Pt experiences severe pain with flexion and abduction over 90? Heat Treater Goal (LTG) Pt to demonstrate pain free ROM to 120? in flexion and abduction LTG Duration 03/20/21 Quickdash Impairment Pt scores 63.64% impairment on quick dash Alf Goal (LTG) Pt will score <40% on Quickdash to improve his functional mobility and strength to improve his quality of life. LTG Duration 03/20/21 Assessment Summary Assessment Pt actually showing improvement in humanities department chair strength, right side improving from 30 lbs to 53 lbs. Mild improvements with ROM. Pt still has increased pain with most ROM, today tested positive apprehension test and positive grind labrum test may be suggestive of labral involvement. Continued skilled PT suggested at this time to maximize pain-free ROM and increased humanities department chair strength. Physical Therapy Plan Frequency and Duration Frequency of Treatment 2x/Week Duration of Treatment Two months Plan of Care Start Date 01/20/21 Plan of Care End Date 03/20/21 Next Visit Focus/Plan Next Note Type Treatment Note Next Visit Plan Shoulder and humanities department chair strengthening, flexibility, ROM, Shoulder stability Plan of Care Dates Plan of Care Start Date 01/20/21 Plan of Care End Date 03/20/21 Electronically Signed by: Eddie Bolivar, PT 01/20/21 [id number] Please Sign and Return: I have reviewed this Plan of Care and certify that the skilled therapy services above are required to meet the patient?s needs. Physician Signature Date Printed Name and Credentials Clinical Instructor Signature Printed Name and Credentials
--- NOTE | 2021-01-22 16:28 | PT.OTN ---
Current Diagnoses Incomplete rotator cuff tear or rupture of right shoulder, not specified as traumatic (01/22/21) Bursitis of right shoulder (01/22/21) Strain of unspecified muscle, fascia and tendon at shoulder and upper arm level, right arm, initial encounter (01/22/21) Physical Therapy Treatment Note PT-OP-A Visit Information Start: 11/18/20 17:43 Freq: Status: Active Protocol: Document 01/22/21 14:36 HH (Rec: 01/22/21 16:28 HH [id number]) Out-Patient Physical Therapy Visit Information Visit Information Visit Type Treatment Note Visit Start Time 14:35 Visit Stop Time 15:15 Total Visit Minutes 40 Visit Number 8 Number of MANAGER ASSET Visits 0 PT-OP-B Current Condition Start: 11/18/20 17:43 Freq: Status: Active Protocol: Document 11/18/20 16:00 DCW (Rec: 11/19/20 11:03 DCW [id number]) Current Condition History of Current Condition Onset Date s/p 23 months Current Complaints Shoulder pain, inability to work History of Current Condition Pt is a 25 year old male with a complicated history of shoulder pain. Pt initially injured his shoulder at work 23 months ago lifting ~50 lb boxes. Pt reports he heard a pop and his right arm went numb. Since that injury, pt has been attending therapy off and on with minimal relief. Pt was found to have a potential partial thickness tear of the supraspinatus and infraspinatus tendons, per MRI on 10/18/19. Per pt today, his request for surgical intervention was denied by L&I , based on an Independent Medical Evaluation. Pt is frustrated by this, feels he will not be able to return to work until he is 100%, and will not get there without surgery, so he is afraid he will lose his job. Pt notes he struggles lifting anything heavier than five pounds, lifting his arm overhead, or being in any position that puts tension on his shoulder. Prior Treatments and Tests Previous PT MRI PT-OP-C Subjective Start: 11/18/20 17:43 Freq: Status: Active Protocol: Document 01/22/21 14:36 HH (Rec: 01/22/21 16:28 HH [id number]) OP-PT Subjective Patient Comments Patient Comments Joselyn been having some R neck pain lately. I tried stretching but its still there . Patient Reported Progress Same PT-OP-E Functional Tests Start: 11/18/20 17:43 Freq: Status: Active Protocol: Document 01/20/21 14:30 DCW (Rec: 01/20/21 14:44 DCW [id number]) Functional Tests Apley's Scratch Test Action 1- Left Posterior opposite shoulder Action 1- Right Posterior opposite shoulder Action 2- Left T4 Action 2- Right T2 Action 3- Left T6 Action 3- Right T10 PT-OP-F Manual Assessment Start: 11/18/20 17:43 Freq: Status: Active Protocol: Document 01/20/21 14:30 DCW (Rec: 01/20/21 14:44 DCW [id number]) Manual Assessments Soft Tissue Assessment Soft Tissue Mobility Assessment Increased tone and tenderness to palpation 1: Complaint of pain with wincing along entire shoulder girdle, severe tone in R pec. Joint Mobility Assessment Joint Mobility Assessment ROM relatively WNL, however exhibits pain at end-range, significant crepitus in right GH joint with all movement. Other Manual Assessments Other Manual Assessments No change in pain with distraction or compression of joint PT-OP-K Range of Motion Start: 11/18/20 17:43 Freq: Status: Active Protocol: Document 01/20/21 14:30 DCW (Rec: 01/20/21 14:44 DCW [id number]) Shoulder Goniometric Range of Motion Shoulder Left Active Shoulder ROM WFL Yes Testing Position Sitting Right Active Shoulder ROM WFL Yes Testing Position Sitting Comments Pain with flexion and abduction over 90? PT-OP-M Strength Start: 11/18/20 17:43 Freq: Status: Active Protocol: Document 01/20/21 14:30 DCW (Rec: 01/20/21 14:44 DCW [id number]) Hand Certified Medical Asst/Pinch Strength Hand Strength Right Certified Medical Asst (lbs) 53.3 Comments Three-trial average (45 lbs, 60 lbs, 55 lbs) Left Certified Medical Asst (lbs) 53.3 Comments Three-trial average (50 lbs, 50 lbs, 65 lbs) PT-OP-Q Treatments Start: 11/18/20 17:43 Freq: Status: Active Protocol: Document 01/22/21 14:36 HH (Rec: 01/22/21 16:28 HH [id number]) Therapeutic Exercises Sidelying Exercises shd abd Equipment Used 3lbs DB Reps/Minutes 8x2 horziontal abd Side bilateral Equipment Used 3# Reps/Minutes 8 x2 shoulder ER Equipment Used 3lbs DB Reps/Minutes 10x2 Sitting Exercises [place] nohelia Sitting Exercise Name fwd, abd, IR Side bilateral Reps/Minutes 8 mins nohelia Side bilateral Reps/Minutes 4 mins Standing Exercises shoulder flexion Standing Exercise Name sh flex, abd Side bilateral Resistance 3# Manual Therapy Treatment Soft Tissue Mobilization R lat Mobilization Type Sustained Pressure,Trigger Point Release Intensity/Depth Superficial Body Position Sidelying Comments less tenderness noted STM Body Location R pec, infraspinatus Mobilization Type Strumming,Sustained Pressure, Trigger Point Release Intensity/Depth Deep Body Position Sidelying Comments slight discomfort at infrapsinatus more at AC joint Joint Mobilizations GH 2 Joint GH joint R Direction inferior and posterior Grade II Body Position Supine Reps/Duration 10 sec x 8 PT-OP-T Assessment and Plan Start: 11/18/20 17:43 Freq: Status: Active Protocol: Document 01/22/21 14:36 (Rec: 01/22/21 16:28 [id number]) Physical Therapy Assessment Goals pain Impairment Pt presents with severe pain lifting more than 5 pounds Collection Systems Consultant Goal (LTG) Pt to exhibit ability to lift 20 pounds with no increased pain LTG Duration 03/20/21 strength Impairment Certified Medical Asst strength R=30#, left=48.3 # Collection Systems Consultant Goal (LTG) Pt to 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 Collection Systems Consultant Goal (LTG) Pt to demonstrate pain free ROM to 120? in flexion and abduction LTG Duration 03/20/21 Quickdash Impairment Pt scores 63.64% impairment on quick dash Collection Systems Consultant Goal (LTG) Pt will score <40% on Quickdash to improve his functional mobility and strength to improve his quality of life. LTG Duration 03/20/21 Assessment Summary Assessment This PT also reassessed pt's R shoulder through special tests. He is positive for apprehension and grind test. And symptoms relieved immediately with axial distraction. These all indicate possible labrum involvment. Recommended pt to request for MRI for his next f /u with on 02/03. Physical Therapy Plan Frequency and Duration Frequency of Treatment 2x/Week Duration of Treatment Two months Plan of Care Start Date 01/20/21 Plan of Care End Date 03/20/21 Next Visit Focus/Plan Next Note Type Treatment Note Next Visit Plan Shoulder and steam frame operator strengthening, flexibility, ROM, Shoulder stability
--- NOTE | 2021-01-27 16:19 | PT.OTN ---
Current Diagnoses Incomplete rotator cuff tear or rupture of right shoulder, not specified as traumatic (01/27/21) Bursitis of right shoulder (01/27/21) Strain of unspecified muscle, fascia and tendon at shoulder and upper arm level, right arm, initial encounter (01/27/21) Physical Therapy Treatment Note PT-OP-A Visit Information Start: 11/18/20 17:43 Freq: Status: Active Protocol: Document 01/27/21 14:33 HH (Rec: 01/27/21 15:17 [id number]) Out-Patient Physical Therapy Visit Information Visit Information Visit Type Treatment Note Visit Start Time 14:35 Visit Stop Time 15:16 Total Visit Minutes 41 Visit Number 9 Number of PHOSPHORUS PROCESSING SUPERVISOR Visits 0 PT-OP-B Current Condition Start: 11/18/20 17:43 Freq: Status: Active Protocol: Document 11/18/20 16:00 DCW (Rec: 11/19/20 11:03 DCW [id number]) Current Condition History of Current Condition Onset Date s/p 23 months Current Complaints Shoulder pain, inability to work History of Current Condition Pt is a 25 year old male with a complicated history of shoulder pain. Pt initially injured his shoulder at work 23 months ago lifting ~50 lb boxes. Pt reports he heard a pop and his right arm went numb. Since that injury, pt has been attending therapy off and on with minimal relief. Pt was found to have a potential partial thickness tear of the supraspinatus and infraspinatus tendons, per MRI on 10/18/19. Per pt today, his request for surgical intervention was denied by L&I , based on an Independent Medical Evaluation. Pt is frustrated by this, feels he will not be able to return to work until he is 100%, and will not get there without surgery, so he is afraid he will lose his job. Pt notes he struggles lifting anything heavier than five pounds, lifting his arm overhead, or being in any position that puts tension on his shoulder. Prior Treatments and Tests Previous PT MRI PT-OP-C Subjective Start: 11/18/20 17:43 Freq: Status: Active Protocol: Document 01/27/21 14:33 HH (Rec: 01/27/21 15:17 [id number]) OP-PT Subjective Patient Comments Patient Comments Its the same. Patient Reported Progress Same PT-OP-E Functional Tests Start: 11/18/20 17:43 Freq: Status: Active Protocol: Document 01/20/21 14:30 DCW (Rec: 01/20/21 14:44 DCW [id number]) Functional Tests Apley's Scratch Test Action 1- Left Posterior opposite shoulder Action 1- Right Posterior opposite shoulder Action 2- Left T4 Action 2- Right T2 Action 3- Left T6 Action 3- Right T10 PT-OP-F Manual Assessment Start: 11/18/20 17:43 Freq: Status: Active Protocol: Document 01/20/21 14:30 DCW (Rec: 01/20/21 14:44 DCW [id number]) Manual Assessments Soft Tissue Assessment Soft Tissue Mobility Assessment Increased tone and tenderness to palpation 12/01: Complaint of pain with wincing along entire shoulder girdle, severe tone in R pec. Joint Mobility Assessment Joint Mobility Assessment ROM relatively WNL, however exhibits pain at end-range, significant crepitus in right GH joint with all movement. Other Manual Assessments Other Manual Assessments No change in pain with distraction or compression of joint PT-OP-K Range of Motion Start: 11/18/20 17:43 Freq: Status: Active Protocol: Document 01/20/21 14:30 DCW (Rec: 01/20/21 14:44 DCW [id number]) Shoulder Goniometric Range of Motion Shoulder Left Active Shoulder ROM WFL Yes Testing Position Sitting Right Active Shoulder ROM WFL Yes Testing Position Sitting Comments Pain with flexion and abduction over 90? PT-OP-M Strength Start: 11/18/20 17:43 Freq: Status: Active Protocol: Document 01/20/21 14:30 DCW (Rec: 01/20/21 14:44 DCW [id number]) Hand Staff Mine Warfare Officer/Pinch Strength Hand Strength Right Staff Mine Warfare Officer (lbs) 53.3 Comments Three-trial average (45 lbs, 60 lbs, 55 lbs) Left Staff Mine Warfare Officer (lbs) 53.3 Comments Three-trial average (50 lbs, 50 lbs, 65 lbs) PT-OP-Q Treatments Start: 11/18/20 17:43 Freq: Status: Active Protocol: Document 01/27/21 14:33 HH (Rec: 01/27/21 15:17 HH [id number]) Cardio Equipment Upper Body Ergometer (UBE) Duration (Minutes) 3 Seat Position 16 Other 30 sec change of direction. Therapeutic Exercises Supine Exercises SA punch Side right Equipment Used 3lbs Sidelying Exercises shd abd Equipment Used 3lbs DB Reps/Minutes 8x2 shoulder ER Equipment Used 3lbs DB Reps/Minutes 10x2 Sitting Exercises shoulder flys Side bilateral Equipment Used 3lbs DB Reps/Minutes 10 x2 shoulder press Side bilateral Equipment Used 3lbs DB Reps/Minutes 10 x2 OH nohelia Sitting Exercise Name fwd, abd, IR Side bilateral Reps/Minutes 8 mins Standing Exercises shoulder flexion Standing Exercise Name sh flex, abd Side bilateral Resistance 3# Comments slow on eccentric Manual Therapy Treatment Soft Tissue Mobilization STM Body Location R pec, infraspinatus Mobilization Type Strumming,Sustained Pressure, Trigger Point Release Intensity/Depth Deep Body Position Sidelying Comments slight discomfort at infrapsinatus more at AC joint PT-OP-T Assessment and Plan Start: 11/18/20 17:43 Freq: Status: Active Protocol: Document 01/27/21 14:33 (Rec: 01/27/21 15:17 [id number]) Physical Therapy Assessment Goals pain Impairment Pt presents with severe pain lifting more than 5 pounds Maintenance Dispatcher Goal (LTG) Pt to exhibit ability to lift 20 pounds with no increased pain LTG Duration 03/20/21 strength Impairment Staff Mine Warfare Officer strength R=30#, left=48.3 # Prison Goal (LTG) Pt to improve bilateral commissary assistant strength to >60 lbs to demonstrate ability to return to necessary work duties LTG Duration 03/20/21 ROM Impairment Pt experiences severe pain with flexion and abduction over 90? Maintenance Dispatcher Goal (LTG) Pt to demonstrate pain free ROM to 120? in flexion and abduction LTG Duration 03/20/21 Quickdash Impairment Pt scores 63.64% impairment on quick dash Prison Goal (LTG) Pt will score <40% on Quickdash to improve his functional mobility and strength to improve his quality of life. LTG Duration 03/20/21 Assessment Summary Assessment Pt negra session okay with gross strengthening. Pain noted with abduction and extension but tolerable. Physical Therapy Plan Frequency and Duration Frequency of Treatment 2x/Week Duration of Treatment Two months Plan of Care Start Date 01/20/21 Plan of Care End Date 03/20/21 Next Visit Focus/Plan Next Note Type Treatment Note Next Visit Plan Shoulder and commissary assistant strengthening, flexibility, ROM, Shoulder stability
--- NOTE | 2021-01-29 16:24 | PT.OTN ---
Current Diagnoses Incomplete rotator cuff tear or rupture of right shoulder, not specified as traumatic (01/29/21) Bursitis of right shoulder (01/29/21) Strain of unspecified muscle, fascia and tendon at shoulder and upper arm level, right arm, initial encounter (01/29/21) Physical Therapy Treatment Note PT-OP-A Visit Information Start: 11/18/20 17:43 Freq: Status: Active Protocol: Document 01/29/21 14:34 HH (Rec: 01/29/21 16:18 [id number]) Out-Patient Physical Therapy Visit Information Visit Information Visit Type Progress Note Visit Start Time 14:32 Visit Stop Time 15:16 Total Visit Minutes 43 Visit Number 10 Number of PATTERN VAULT CLERK Visits 0 PT-OP-B Current Condition Start: 11/18/20 17:43 Freq: Status: Active Protocol: Document 11/18/20 16:00 DCW (Rec: 11/19/20 11:03 DCW [id number]) Current Condition History of Current Condition Onset Date s/p 23 months Current Complaints Shoulder pain, inability to work History of Current Condition Pt is a 25 year old male with a complicated history of shoulder pain. Pt initially injured his shoulder at work 23 months ago lifting ~50 lb boxes. Pt reports he heard a pop and his right arm went numb. Since that injury, pt has been attending therapy off and on with minimal relief. Pt was found to have a potential partial thickness tear of the supraspinatus and infraspinatus tendons, per MRI on 10/18/19. Per pt today, his request for surgical intervention was denied by L&I , based on an Independent Medical Evaluation. Pt is frustrated by this, feels he will not be able to return to work until he is 100%, and will not get there without surgery, so he is afraid he will lose his job. Pt notes he struggles lifting anything heavier than five pounds, lifting his arm overhead, or being in any position that puts tension on his shoulder. Prior Treatments and Tests Previous PT MRI PT-OP-C Subjective Start: 11/18/20 17:43 Freq: Status: Active Protocol: Document 01/29/21 14:34 HH (Rec: 01/29/21 16:18 HH [id number]) OP-PT Subjective Patient Comments Patient Comments Im going to see Dr.Joan next week 02/03 Patient Reported Progress Same PT-OP-E Functional Tests Start: 11/18/20 17:43 Freq: Status: Active Protocol: Document 01/20/21 14:30 DCW (Rec: 01/20/21 14:44 DCW [id number]) Functional Tests Apley's Scratch Test Action 1- Left Posterior opposite shoulder Action 1- Right Posterior opposite shoulder Action 2- Left T4 Action 2- Right T2 Action 3- Left T6 Action 3- Right T10 PT-OP-F Manual Assessment Start: 11/18/20 17:43 Freq: Status: Active Protocol: Document 01/20/21 14:30 DCW (Rec: 01/20/21 14:44 DCW [id number]) Manual Assessments Soft Tissue Assessment Soft Tissue Mobility Assessment Increased tone and tenderness to palpation 12/01: Complaint of pain with wincing along entire shoulder girdle, severe tone in R pec. Joint Mobility Assessment Joint Mobility Assessment ROM relatively WNL, however exhibits pain at end-range, significant crepitus in right GH joint with all movement. Other Manual Assessments Other Manual Assessments No change in pain with distraction or compression of joint PT-OP-K Range of Motion Start: 11/18/20 17:43 Freq: Status: Active Protocol: Document 01/20/21 14:30 DCW (Rec: 01/20/21 14:44 DCW [id number]) Shoulder Goniometric Range of Motion Shoulder Left Active Shoulder ROM WFL Yes Testing Position Sitting Right Active Shoulder ROM WFL Yes Testing Position Sitting Comments Pain with flexion and abduction over 90? PT-OP-M Strength Start: 11/18/20 17:43 Freq: Status: Active Protocol: Document 01/20/21 14:30 DCW (Rec: 01/20/21 14:44 DCW [id number]) Hand Marine Pilot/Pinch Strength Hand Strength Right Marine Pilot (lbs) 53.3 Comments Three-trial average (45 lbs, 60 lbs, 55 lbs) Left Marine Pilot (lbs) 53.3 Comments Three-trial average (50 lbs, 50 lbs, 65 lbs) PT-OP-Q Treatments Start: 11/18/20 17:43 Freq: Status: Active Protocol: Document 01/29/21 14:34 HH (Rec: 01/29/21 16:18 HH [id number]) Therapeutic Exercises Supine Exercises SA punch Side right Equipment Used 3lbs Sidelying Exercises shd abd Equipment Used 3lbs DB Reps/Minutes 8x2 shoulder ER Equipment Used 3lbs DB Reps/Minutes 10x2 Sitting Exercises shoulder flys Side bilateral Equipment Used 3lbs DB Reps/Minutes 10 x2 shoulder press Side bilateral Equipment Used 3lbs DB Reps/Minutes 10 x2 OH nohelia Sitting Exercise Name fwd, abd, IR Side bilateral Reps/Minutes 8 mins Standing Exercises scap row Side bilateral Equipment Used level 4 Reps/Minutes 10 x2 Manual Therapy Treatment Soft Tissue Mobilization STM Body Location R pec, infraspinatus Mobilization Type Strumming,Sustained Pressure, Trigger Point Release Intensity/Depth Deep Body Position Sidelying Comments slight discomfort at infrapsinatus more at AC joint PT-OP-T Assessment and Plan Start: 11/18/20 17:43 Freq: Status: Active Protocol: Document 01/29/21 14:34 (Rec: 01/29/21 16:18 [id number]) Physical Therapy Assessment Goals pain Impairment Pt presents with severe pain lifting more than 5 pounds Half-Way Goal (LTG) 01/29 did not meet Pt has pain with shoulder press/ abd with 3 lbs DB Pt to exhibit ability to lift 20 pounds with no increased pain LTG Duration 03/20/21 strength Impairment Marine Pilot strength R=30#, left=48.3 # Healthcare Translator Goal (LTG) Pt to improve bilateral emergency medical tech strength to >60 lbs to demonstrate ability to return to necessary work duties LTG Duration 03/20/21 ROM Impairment Pt experiences severe pain with flexion and abduction over 90? Healthcare Translator Goal (LTG) 01/29 did not meet pt cont to show painful arc Pt to demonstrate pain free ROM to 120? in flexion and abduction LTG Duration 03/20/21 Quickdash Impairment Pt scores 63.64% impairment on quick dash Half-Way Goal (LTG) Pt will score <40% on Quickdash to improve his functional mobility and strength to improve his quality of life. LTG Duration 03/20/21 Progress Towards Goals Progress Towards Goals Slow Progress due to Activity Tolerance,Slow Progress due to Medical Issues,Slow Progress - Other Assessment Summary Assessment Pt shows no significant difference in progress since initial evaluation. And pt has been in PT intermittently over the past 2 years. He Continues to show painful arc especially with ER position. Pt also c/o clicking with rotational movements. In addition to previous findings, I believe pt possibly has labral tear. Recommend pt to consult with Dr. Franco for further imaging and look for second opinion. Physical Therapy Plan Frequency and Duration Frequency of Treatment 2x/Week Duration of Treatment Two months Plan of Care Start Date 01/20/21 Plan of Care End Date 03/20/21 Next Visit Focus/Plan Next Note Type Treatment Note Next Visit Plan Shoulder and emergency medical tech strengthening, flexibility, ROM, Shoulder stability
--- NOTE | 2021-03-30 09:26 | PT.OPDS ---
Current Diagnoses Incomplete rotator cuff tear or rupture of right shoulder, not specified as traumatic (01/29/21) Bursitis of right shoulder (01/29/21) Strain of unspecified muscle, fascia and tendon at shoulder and upper arm level, right arm, initial encounter (01/29/21) Visit Care Team Role Provider Type Del Franco MD Attending Provider Physician Referring Provider Specialty: Orthopedic Surgery Address: [address] [place] [address], [id number] Email: [email or web address] Visit Number Visit Number 10 Discharge Summary PT-OP-T Assessment and Plan Start: 11/18/20 17:43 Freq: Status: Active Protocol: Document 03/30/21 09:24 HH (Rec: 03/30/21 09:26 HH [id number]) Physical Therapy Plan Discharge Physical Therapy Discharge Reasons No Longer Attending PT Discharge Comments Per last visit note, pt hasnt shown any clinical improvements since initial evaluation. He hasnt returned since his f/u with Dr. Franco. MARIA C pt from PT today.
== END 2021-03-30 14:29 | disposition home or self-care (01) ==
LOC: PHYS 14:30
PROVIDERS: Referring Provider Orthopaedic Surgery; Visit Provider Orthopaedic Surgery
DX: S46.911A Strain of unspecified muscle, fascia and tendon at shoulder and upper arm level, right arm, initial encounter (principal); M75.111 Incomplete rotator cuff tear or rupture of right shoulder, not specified as traumatic; M75.51 Bursitis of right shoulder
CPT/HCPCS: 97110; 97140; 97162

== ENCOUNTER 2021-04-21 21:40 | Observation (INO) | payer OTHER, SELFPAY ==
--- NOTE | 2021-04-21 21:45 | ED_ITS ---
HPI - Allergic Reaction General Chief complaint: Allergic Reaction Stated complaint: Allergic Reaction Time Seen by Provider: 04/21/21 21:43 Source: patient and EMS Mode of arrival: EMS History of Present Illness HPI narrative: Patient brought in by ambulance from home. Allergic reaction to cefazolin. Patient was outpatient Orthopedic surgery in [place] today at noontime was given prophylactic 1 g cefazolin for right shoulder arthroscopic surgery developed hives and allergic reaction dyspnea during his stay at the operating Center. Did not receive the surgery. Discharged home. No hives or trouble breathing on the way home. However this evening no hives but dyspnea returned. EMS gave 0.3 mg IM of epinephrine as well as Zofran and 50 mg of Benadryl. Patient no distress at this time. EMS reported tongue swelling however there is no no tongue swelling. Patient never felt his tongue or lip swelling. Only short of breath MD complaint: allergic reaction Related Data Home Medications Medication Instructions Recorded Confirmed No Known Home Medications 04/22/21 04/22/21 Allergies Allergy/AdvReac Type Severity Reaction Status Date / Time cefazolin Allergy Severe Anaphylaxis Verified 04/21/21 22:03 bacitracin AdvReac Mild Rash Verified 12/18/18 10:55 [From Neosporin ([id number])] neomycin AdvReac Mild Rash Verified 12/18/18 10:55 [From Neosporin ([id number])] polymyxin B AdvReac Mild Rash Verified 12/18/18 10:55 [From Neosporin ([id number])] Review of Systems Review of Systems Narrative: GENERAL: Denies chills, fatigue, malaise, fever, sweats. HEENT: Denies sinus pain, ear pain, sore throat RESPIRATORY: Complaint dyspnea, denies cough CARDIOVASCULAR: Denies chest pain, palpitations GASTROINTESTINAL: Denies nausea, vomiting, abdominal pain : Denies dysuria, frequency, hematuria MUSCULOSKELETAL: denies muscle or bony pain SKIN: Denies rash, skin lesions NEUROLOGIC: Denies weakness, numbness ROS Unobtainable: All systems reviewed & are unremarkable except as noted in HPI and below Patient History Medical History Diarrhea Pedal edema Shoulder pain Surgical History Hx of cholecystectomy Family History Grandfather Cancer Heart disease Social History household members: spouse and children Smoking Status: Current every day smoker Tobacco: How many years used: 10 alcohol intake: current substance use type: does not use Smoking Status: Current every day smoker alcohol intake frequency: 0-2 drinks per day Substance Use Type: does not use Exam Initial Vital Signs Initial Vital Signs: Vital Signs Pulse Rate 117 H 04/21/21 21:51 Pulse Oximetry 94 04/21/21 21:51 Course Course Course Narrative: No new issues during course of stay Decision to Admit Date: 04/21/21 Decision to Admit time: 23:12 Orders Ordered: ED Orders 04/21/21 20:05 COVID19 - ADMIT ([employer] swab/PCR) Stat 04/21/21 21:45 Complete Blood Count AUTO DIFF Stat Comprehensive Metabolic Panel Stat Acetaminophen (Acetaminophen 325 Mg Tablet) 650 mg PO Q6HR PRN PRN Reason: Fever/Mild Pain (1-3) Hydrocodone Bitart/Acetaminophen (Hydrocodone/Acet 5/325 Tablet) 1 tab PO Q4HR PRN PRN Reason: Pain, Moderate (4-6) Diphenhydramine HCl (Diphenhydramine 50 Mg/Ml Vial) 25 mg IV Q4HR PRN PRN Reason: Itching Diphenhydramine HCl (Diphenhydramine 50 Mg/Ml Vial) 50 mg IV Q6HR PRN PRN Reason: Itching Enoxaparin Sodium (Enoxaparin 40 Mg/0.4 Ml Syringe) 40 mg SUBCUT DAILY JACI Famotidine (Pepcid) 20 mg in 50 mls @ 200 mls/hr IV Q12HR JACI Ibuprofen (Ibuprofen 600 Mg Tablet) 600 mg PO Q6HR PRN PRN Reason: Fever/Mild Pain (1-3) Methylprednisolone (Methylprednisolone 125 Mg/2 Ml Vial) 60 mg IV Q8H JACI Naloxone HCl (Naloxone 0.4 Mg/Ml Vial) 0.2 mg IV Q2MIN PRN PRN Reason: Opiate Reversal Ondansetron HCl (Ondansetron 4 Mg/2 Ml Inj) 4 mg IV Q8HR PRN PRN Reason: Nausea And Vomiting Discontinued Medications Famotidine (Pepcid) 20 mg in 50 mls @ 200 mls/hr IV NOW ONE Stop: 04/21/21 21:58 Last Infusion: 04/21/21 22:47 Dose: 0 mls/hr Documented by: Admin: 04/21/21 22:01 Dose: 200 mls/hr Documented by: GLENN Sodium Chloride (Normal Saline 0.9%) 500 mls @ 1,000 mls/hr IV BOLUS ONE Stop: 04/21/21 22:14 Last Infusion: 04/21/21 22:47 Dose: 0 mls/hr Documented by: Admin: 04/21/21 22:02 Dose: 1,000 mls/hr Documented by: GLENN Methylprednisolone (Methylprednisolone 125 Mg/2 Ml Vial) 125 mg IV NOW ONE Stop: 04/21/21 21:44 Last Admin: 04/21/21 22:01 Dose: 125 mg Documented by: GLENN Reevaluation(s) Reevaluation #1: No hypoxia at this time. No tachycardia. Patient feeling better. Time: 23:12 Consultations Consultation #1: Spoke with Dr. pop, hospitalist, will admit Time: 23:12 Vital Signs Vital signs: Vital Signs - 8 hr 04/21/21 21:51 04/21/21 21:52 04/21/21 22:00 Pulse Rate 117 H 118 H 113 H Respiratory Rate 18 Blood Pressure 133/73 135/70 Pulse Oximetry 94 94 94 04/21/21 22:30 04/21/21 23:00 Pulse Rate 121 H 107 H Respiratory Rate 25 H 20 Blood Pressure 138/67 127/65 Pulse Oximetry 94 94 MDM - Allergic Reaction Differential Diagnosis Differential diagnosis: Likely anaphylaxis, allergic reaction and angioedema Lab Data Attestation: I reviewed the patient's lab results. Result diagrams: 04/21/21 21:45 04/21/21 21:45 Labs: Lab Results 04/21/21 04/21/21 04/21/21 Range/Units 20:05 21:45 21:45 WBC 11.5 H (4.5-11.0) X10^3/uL RBC 5.13 (4.5-5.9) X10^6/uL Hgb 14.8 (13.5-17.5) g/dL Hct 44.6 (41-53) % MCV 86.8 (80-100) fL MCH 28.8 (26-34) PG MCHC 33.2 (30-36) % RDW 13.7 (11.6-14.8) % Plt Count 261 (150-400) X10^3/uL Neut % (Auto) 79.9 H (50-75) % Lymph % (Auto) 13.9 L (25-40) % [place] % (Auto) 4.8 (3-14) % Eos % (Auto) 0.0 L (2-4) % Baso % (Auto) 1.4 (0-2) % Neut # (Auto) 9200 H (7423-1234) /uL Lymph # (Auto) 1600 (6737-4891) /uL [place] # (Auto) 500 (0-900) /uL Eos # (Auto) 0 (0-450) /uL Baso # (Auto) 200 H (0-100) /uL Sodium 141 (137-145) mmol/L Potassium 4.1 (3.4-5.1) mmol/L Chloride 111 H (98-107) mmol/L Carbon Dioxide 22 (22-32) mmol/L BUN 12 (9-20) mg/dL Creatinine 0.88 (0.66-1.25) mg/dL Estimated GFR > 60.0 (>60) mL/min BUN/Creatinine Ratio 13.6 (6-22) Glucose 137 H (70-100) mg/dL Calcium 9.4 (8.4-10.2) mg/dL Total Bilirubin 0.2 (0.2-1.3) mg/dL AST 39 (17-59) IU/L ALT 49 (<50) IU/L Alkaline Phosphatase 103 (38-126) U/L NT-Pro-B Natriuret Pep (<125) pg/mL Total Protein 7.2 (6.3-8.2) g/dL Albumin 4.2 (3.5-5.0) g/dL Globulin 3.0 (1.7-4.1) g/dL Albumin/Globulin Ratio 1.4 (1.0-2.8) SARS-CoV-2 (PCR) Negative (Negative) 04/21/21 Range/Units 21:45 WBC (4.5-11.0) X10^3/uL RBC (4.5-5.9) X10^6/uL Hgb (13.5-17.5) g/dL Hct (41-53) % MCV (80-100) fL MCH (26-34) PG MCHC (30-36) % RDW (11.6-14.8) % Plt Count (150-400) X10^3/uL Neut % (Auto) (50-75) % Lymph % (Auto) (25-40) % [place] % (Auto) (3-14) % Eos % (Auto) (2-4) % Baso % (Auto) (0-2) % Neut # (Auto) (8772-7735) /uL Lymph # (Auto) (7351-7047) /uL [place] # (Auto) (0-900) /uL Eos # (Auto) (0-450) /uL Baso # (Auto) (0-100) /uL Sodium (137-145) mmol/L Potassium (3.4-5.1) mmol/L Chloride (98-107) mmol/L Carbon Dioxide (22-32) mmol/L BUN (9-20) mg/dL Creatinine (0.66-1.25) mg/dL Estimated GFR (>60) mL/min BUN/Creatinine Ratio (6-22) Glucose (70-100) mg/dL Calcium (8.4-10.2) mg/dL Total Bilirubin (0.2-1.3) mg/dL AST (17-59) IU/L ALT (<50) IU/L Alkaline Phosphatase (38-126) U/L NT-Pro-B Natriuret Pep 44 (<125) pg/mL Total Protein (6.3-8.2) g/dL Albumin (3.5-5.0) g/dL Globulin (1.7-4.1) g/dL Albumin/Globulin Ratio (1.0-2.8) SARS-CoV-2 (PCR) (Negative) MDM Narrative Medical decision making narrative: Appropriate for admission. Second episode less than 12 hours. Patient agrees with treatment plan Discharge Plan Departure Patient Disposition: Admitted as Observation Clinical Impression: Allergic reaction Qualifiers: Encounter type: initial encounter Qualified Code(s): T78.40XA - Allergy, unspecified, initial encounter Admit Date/Time: 04/21/21 23:11 Admit Provider: Hiral Pop
[2021-04-21 21:48] VITALS: BMI 43.1
[2021-04-21 21:51] VITALS: PULSE 117; O2SAT 94
[2021-04-21 21:52] VITALS: BP 133/73; PULSE 118; O2SAT 94
[2021-04-21 22:00] VITALS: BP 135/70; PULSE 113; RESP 18; O2SAT 94
[2021-04-21 22:00] LABS: Add Manual Diff / Slide Review NO; Basophils Absolute Auto 200 /uL (0-100); Basophils Percent Auto 1.4 % (0-2); Eosinophils Absolute Auto 0 /uL (0-450); Hematocrit 44.6 % (41-53); Hemoglobin 14.8 g/dL (13.5-17.5); Lymphocytes Absolute Auto 1600 /uL (1100-4500); Lymphocytes Percent Auto 13.9 % (25-40); Mean Corpuscular HGB Conc 33.2 % (30-36); Mean Corpuscular Hemoglobin 28.8 PG (26-34); Mean Corpuscular Volume 86.8 fL (80-100); Monocytes Absolute Auto 500 /uL (0-900); Monocytes Percent Auto 4.8 % (3-14); Neutrophils Absolute Auto 9200 /uL (1500-7000); Neutrophils Percent Auto 79.9 % (50-75); Platelet Count 261 X10^3/uL (150-400); Red Blood Cell Count 5.13 X10^6/uL (4.5-5.9); Red Cell Distribution Width 13.7 % (11.6-14.8); White Blood Cell Count 11.5 X10^3/uL (4.5-11.0)
[2021-04-21] MEDS: methylPREDNISolone 125 MG/2 ML VIAL IV (22:01)
[2021-04-21] MEDS: FAMOTIDINE 20 MG/50 ML PIGGYBACK 200 MG IV (22:01)
[2021-04-21] MEDS: SODIUM CHLORIDE 0.9% 500 ML 1000 ML IV (22:02)
[2021-04-21 22:15] LABS: Alanine Aminotransferase 49 IU/L (<50); Albumin 4.2 g/dL (3.5-5.0); Albumin Globulin Ratio 1.4 (1.0-2.8); Alkaline Phosphatase 103 U/L (38-126); Aspartate Aminotransferase 39 IU/L (17-59); BUN Creatinine Ratio 13.6 (6-22); Bilirubin Total 0.2 mg/dL (0.2-1.3); Blood Urea Nitrogen 12 mg/dL (9-20); Calcium 9.4 mg/dL (8.4-10.2); Carbon Dioxide 22 mmol/L (22-32); Chloride 111 mmol/L (98-107); Estimated Glomerular Filt Rate > 60.0 mL/min (>60); Glucose 137 mg/dL (70-100); HEMOLYSIS 24 (0-50); Potassium 4.1 mmol/L (3.4-5.1); Sodium 141 mmol/L (137-145); Total Protein 7.2 g/dL (6.3-8.2)
[2021-04-21 22:30] VITALS: BP 138/67; PULSE 121; RESP 25; O2SAT 94
[2021-04-21 23:00] VITALS: BP 127/65; PULSE 107; RESP 20; O2SAT 94
[2021-04-21 23:44] LABS: COVID19 - ADMIT (NP swab/PCR) Negative (Negative)
[2021-04-22] VITALS (8 sets, daily range): BP systolic 112–159; BP diastolic 66–104; PULSE 91–103; RESP 14–20; TEMP 36.3–37.3; O2SAT 92–97; BMI 42.9
--- NOTE | 2021-04-22 | DI.RAD.S_ITS ---
PROCEDURE: XR CHEST 1V INDICATIONS: evaluate shortness of breath TECHNIQUE: One view of the chest was acquired. COMPARISON: [facility], CR, XR CHEST 2V, 06/23/2020, 19:25. FINDINGS: Surgical changes and devices: None. Lungs and pleura: Elevation the right hemidiaphragm and right basilar airspace opacity.. No pleural effusions or pneumothorax. Mediastinum: Mediastinal contours appear normal. Heart size is normal. Bones and chest wall: No suspicious bony lesions. Overlying soft tissues appear unremarkable. IMPRESSION: Elevation of the right hemidiaphragm and right basilar airspace opacity consistent with atelectasis versus aspiration or pneumonia. Dictated by: Chivo DONALDSON Interpreted: Mark Marie MD on 04/22/2021 at 12:02 Transcribed by: NELI on 04/22/2021 at 12:26 Approved by: Mark Marie M.D. on 04/22/2021 at 14:51
--- NOTE | 2021-04-22 01:03 | DI.ECHO.S_ITS ---
[facility]---------+ [facility] +---------+ : : [address] : : : : [id number] : : : : Phone: [phone] Echocardiogram Report + + :Name: KELY PRYOR Study Date: 04/22/2021 Height: 77 in : :[facility] ReadingLocation: Weight: 362 lb : : Gender: Male BSA: 2.9 m2 : :: 1995 Age: 25 yrs BP: 159/104 mmHg: :Reason For Study: SHORTNESS OF BREATH : :Ordering Physician: YADIRA, : :CALI Performed By: Astrid Benjamin : :Referring: CALI MAY : + + Interpretation Summary The left ventricle is normal in size. Left ventricular systolic function appears normal without focal wall motion abnormalities. The ejection fraction is estimated to be 60-65%. Diastolic parameters suggest probable normal left ventricular diastolic function and normal filling pressures. The right ventricle is mildly dilated. The right ventricular systolic function is normal. Pulmonary artery pressures cannot be estimated because of the lack of a measurable TR jet velocity. Both atria are normal in size. There is no significant valvular heart disease. The aortic root is normal size. Procedure: A two-dimensional transthoracic echocardiogram with color flow and Doppler was performed. The study quality was technically adequate. There is no prior echocardiogram noted for this patient. The patient was in sinus rhythm with heart rates between 84-94 bpm during the exam. Left Ventricle: The left ventricle is normal in size. Left ventricular wall thickness is at the upper limits of normal. Left ventricular systolic function appears normal without focal wall motion abnormalities. The ejection fraction is estimated to be 60-65%. Diastolic parameters suggest probable normal left ventricular diastolic function and normal filling pressures. Right Ventricle: The right ventricle is mildly dilated. The right ventricular systolic function is normal. Atria: Both atria are normal in size. There is no Doppler evidence for an interatrial shunt. Mitral Valve: The mitral valve is normal in structure and function. There is no mitral regurgitation noted. Aortic Valve: The aortic valve opens well. There is no aortic valve stenosis. No aortic regurgitation is present. Tricuspid Valve: The tricuspid valve is normal in structure and function. There is trace tricuspid regurgitation. Pulmonary artery pressures cannot be estimated because of the lack of a measurable TR jet velocity. Pulmonic Valve: The pulmonic valve is not well seen, but is grossly normal. There is no pulmonic valvular regurgitation. There is no significant valvular heart disease. Great Vessels: The aortic root is normal size. The dimensions of the ascending aorta are normal. The inferior vena cava was not visualized. Pericardium/ Pleura There is no pericardial effusion. There is no pleural effusion. MMode/2D Measurements & Calculations LVIDd: 5.3 cm LVOT diam: 2.3 cm LVIDs: 3.5 cm Ao root diam: 3.6 cm FS: 33.0 % asc Aorta Diam: 2.9 cm EPSS: 1.6 cm Ao Arch Diam (Prox Trans): 2.8 cm IVSd: 1.1 cm LVPWd: 1.0 cm LV huertas. diameter/BSA (cm/m^2): 1.8 LV sys. diameter/BSA (cm/m^2): 1.2 LA A2 area: 18.5 cm2 RA long axis: 4.9 cm LA A4 area: 18.6 cm2 RA area: 16.0 cm2 LA length (vol): 5.2 cm RA vol: 44.8 ml LA vol: 55.8 ml RA : 15.6 ml/m2 LA vol index: 19.4 ml/m2 RVD1 (basal): 4.3 cm TAPSE: 2.7 cm Doppler Measurements & Calculations Ao V2 max: 107.4 cm/sec LVOT Max Brian: 93.7 cm/sec Ao V2 mean: 81.1 cm/sec LV V1 max P.5 mmHg Ao max P.6 mmHg LV V1 VTI: 18.6 cm Ao mean P.9 mmHg SEPIDEH(I,D): 3.5 cm2 Ao V2 VTI: 22.2 cm SEPIDEH(V,D): 3.6 cm2 sev ratio: 0.84 SEPIDEH indexed to BSA (cm^2/m^2): 1.2 MV E max brian: 82.8 cm/sec PA V2 max: 118.1 cm/sec MV A max brian: 79.6 cm/sec PA V2 mean: 82.4 cm/sec MV E/A: 1.0 PA mean P.1 mmHg Med Peak E' Brian: 10.2 cm/sec PA pr(Accel): 25.9 mmHg E/E' med: 8.2 Lat Peak E' Brian: 16.2 cm/sec E/E' lat: 5.1 E/e' average: 6.6 MV dec time: 0.18 sec SV(LVOT): 77.1 ml Reading Physician:01:01 PM
--- NOTE | 2021-04-22 01:03 | PM.HP.1 ---
History of Present Illness History of Present Illness Date Patient Seen: 04/22/21 Chief complaint: Allergic Reaction Narrative: The patient is a 25-year-old male with no prior history who presented to [facility] for arthroscopic surgery of his right shoulder. Patient has chronic shoulder pain and they were planning to do arthroscopy to evaluate the etiology of the shoulder pain. The patient received 1 dose of cefazolin preoperatively. He developed a rash throughout his body, right upper quadrant pain, shortness of breath. The surgery was aborted. It is believed that the patient was treated with steroids, and Benadryl. His hives and rash completely resolved. The patient went home and subsequently developed worsening shortness of breath. He had no rash. He had no swelling of his tongue. He did describe feeling some chest tightness and wheezing. The chest pain was described as 8/10 in intensity. It gradually resolved and has persisted for the past 4-5 hours. He continues to feel mildly short of breath. He also describes some right upper quadrant pain associated. Patient was evaluated in the emergency room where he received Benadryl, Pepcid, and Solu-Medrol. Patient is admitted to the hospital for and observation following a an allergic reaction. Patient also reports bilateral pedal edema. Does not have a primary care physician. He does not know the etiology of the lower extremity edema. He does describe waking up gasping. He has not had a sleep study. Patient denies any change in his weight. He has had no fever chills. He denies any cough. He has had some nausea with the symptoms above. He denies hematemesis melena or bright red blood per rectum. No headache blurred vision double vision. No dysuria hematuria or pyuria. Further review of systems is negative. Patient History Medical History (Updated 04/22/21 @ 01:07 by Hiral Mar MD) Diarrhea Pedal edema Shoulder pain Surgical History Hx of cholecystectomy Family & Social History Family History (Updated 04/22/21 @ 01:07 by Hiral Mar MD) Grandfather Cancer Heart disease Social History: household members spouse,children Prior Living Arrangements Apartment/Condo Safety & Behavioral: Feels Safe in Current Yes Environment Been Physically Hurt or No Threatened By a Person Suicidal Ideation Description Vague Suicide Plan Description No Plan Tobacco & Substance use: Tobacco type cigarettes Smoking Status Current every day smoker Smoking packs per day 0.5 alcohol intake current alcohol intake frequency holiday/special occasion Substance Use Type does not use Meds Home Medications and Allergies Home Medications Medication Instructions Recorded Confirmed Type No Known Home Medications 04/22/21 04/22/21 History Allergies Allergy/AdvReac Type Severity Reaction Status Date / Time cefazolin Allergy Severe Anaphylaxis Verified 04/21/21 22:03 bacitracin AdvReac Mild Rash Verified 12/18/18 10:55 [From Neosporin ([id number])] neomycin AdvReac Mild Rash Verified 12/18/18 10:55 [From Neosporin ([id number])] polymyxin B AdvReac Mild Rash Verified 12/18/18 10:55 [From Neosporin ([id number])] Review of Systems Review of Systems ROS: Yes All systems reviewed with the patient and are negative except as otherwise documented Exam Vital Signs (past 8 hours): - 04/21/21 21:51 04/21/21 21:52 04/21/21 22:00 Temperature Pulse Rate 117 H 118 H 113 H Respiratory Rate 18 Blood Pressure 133/73 135/70 Pulse Oximetry 94 94 94 04/21/21 22:30 04/21/21 23:00 04/22/21 00:06 Temperature 98.0 F Pulse Rate 121 H 107 H 101 H Respiratory Rate 25 H 20 18 Blood Pressure 138/67 127/65 128/76 Pulse Oximetry 94 94 94 Oxygen Delivery Method Nasal Cannula Oxygen Flow Rate 2 Narrative Exam Narrative: Pleasant male resting comfortably in no obvious distress HEENT: Normocephalic atraumatic, extraocular muscles are intact, oropharynx is clear, there is no swelling or erythema Neck is supple without adenopathy or thyromegaly Lungs: Clear to auscultation Cardiac exam: Regular rate and rhythm normal S1-S2 Abdomen: Obese, soft, mildly tender in the right upper quadrant, no palpable masses, no rebound tenderness Lower extremities: +pitting edema bilateral Skin exam: No lesions noted Neuro exam: Nonfocal Psychiatric exam: Patient is awake alert and answers questions appropriately, no delusions, no hallucinations Objective Labs Result Diagrams: 04/21/21 21:45 04/21/21 21:45 Labs: Laboratory Results - last 24 hr 04/21/21 04/21/21 04/21/21 20:05 21:45 21:45 WBC 11.5 H RBC 5.13 Hgb 14.8 Hct 44.6 MCV 86.8 MCH 28.8 MCHC 33.2 RDW 13.7 Plt Count 261 Neut % (Auto) 79.9 H Lymph % (Auto) 13.9 L [place] % (Auto) 4.8 Eos % (Auto) 0.0 L Baso % (Auto) 1.4 Neut # (Auto) 9200 H Lymph # (Auto) 1600 [place] # (Auto) 500 Eos # (Auto) 0 Baso # (Auto) 200 H Sodium 141 Potassium 4.1 Chloride 111 H Carbon Dioxide 22 BUN 12 Creatinine 0.88 Estimated GFR > 60.0 BUN/Creatinine Ratio 13.6 Glucose 137 H Calcium 9.4 Total Bilirubin 0.2 AST 39 ALT 49 Alkaline Phosphatase 103 Total Protein 7.2 Albumin 4.2 Globulin 3.0 Albumin/Globulin Ratio 1.4 SARS-CoV-2 (PCR) Negative Assessment & Plan Assessment & Plan narrative: 1. 25-year-old male admitted to the hospital following an allergic reaction to cefazolin, patient developed hives, shortness of breath, and chest pain. Patient was treated at [facility] but developed recurrent shortness of breath Differential diagnosis includes delayed allergic reaction versus other Will obtain chest x-ray given the patient's significant lower extremity edema Will obtain 12 lead EKG given complaints of chest pain Will obtain cardiac enzymes x2 to evaluate chest pain Patient will continue on Solu-Medrol, Benadryl, and Pepcid Will continue oxygen Will obtain cardiac echo for evaluation of lower extremity edema, shortness of breath, and history suggestive of probable sleep apnea 2. Right shoulder pain -, chronic -Tylenol and ibuprofen as needed 3. IV fluids will be held, patient will hydrate orally, he will be placed on Lovenox for DVT prophylaxis Patient indicates he is a full code will note that his record accordingly He states his Chelsy is his surrogate decision maker Patient will be brought into the hospital under observation as it is anticipated he will be discharged within 24 hours Quality VTE Deep Vein Thrombosis/Pulmonary Embolism Present on Admission: No
[2021-04-22 01:59] LABS: NT-proBNP (BNP-Adult 18+) 44 pg/mL (<125)
[2021-04-22] MEDS: FAMOTIDINE 20 MG/50 ML PIGGYBACK 200 MG IV ×2 (02:32→13:56)
[2021-04-22 04:33] LABS: Troponin I < 0.012 ng/mL (0.01-0.034)
[2021-04-22] MEDS: methylPREDNISolone 125 MG/2 ML VIAL 60 MG IV ×2 (06:13→13:57)
--- NOTE | 2021-04-22 09:19 | P.DS_ITS ---
History of Present Illness History of Present Illness Chief complaint: Allergic Reaction Narrative: H and P per Dr. Mar: The patient is a 25-year-old male with no prior history who presented to [facility] for arthroscopic surgery of his right shoulder. Patient has chronic shoulder pain and they were planning to do arthroscopy to evaluate the etiology of the shoulder pain. The patient received 1 dose of cefazolin preoperatively. He developed a rash throughout his body, right upper quadrant pain, shortness of breath. The surgery was aborted. It is believed that the patient was treated with steroids, and Benadryl. His hives and rash completely resolved. The patient went home and subsequently developed worsening shortness of breath. He had no rash. He had no swelling of his tongue. He did describe feeling some chest tightness and wheezing. The chest pain was described as 8/10 in intensity. It gradually resolved and has persisted for the past 4-5 hours. He continues to feel mildly short of breath. He also describes some right upper quadrant pain associated. Patient was evaluated in the emergency room where he received Benadryl, Pepcid, and Solu-Medrol. Patient is admitted to the hospital for and observation following a an allergic reaction. Patient also reports bilateral pedal edema. Does not have a primary care physician. He does not know the etiology of the lower extremity edema. He does describe waking up gasping. He has not had a sleep study. Patient denies any change in his weight. He has had no fever chills. He denies any cough. He has had some nausea with the symptoms above. He denies hematemesis melena or bright red blood per rectum. No headache blurred vision double vision. No dysuria hematuria or pyuria. Further review of systems is negative. Discharge Providers Provider Date of admission: 04/21/21 23:11 Discharge Date: 04/22/21 Discharge provider: Cuong Renteria MD Summary Hospital Course Discharge Diagnosis: 1. Allergic reaction, anaphylaxis, to cefazolin with acute hypoxemic respiratory failure 2. Chronic right shoulder pain 3. Lower extremity edema 4. Possible VENESSA 5. Morbid obesity, BMI 43 6. Active smoker Hospital Course: Mr. Johnson was admitted after getting short of breath to cefazolin. He did get a dose of epinephrine. He was also given antihistamines and steroids. He initially was desatting to the 80s on room air. But with these treatments he did improve. He was given information about anaphylaxis, prescribed epipen x2. In addition he was noted to have morbid obesity, BMI 43, actively smoking, and clinical history of possible VENESSA. He had an ECHO done which showed mildly dilated right atrium. He was encouraged to quit smoking, perform lifestyle changes to lose weight, get an outpatient sleep study in order to protect his heart from further strain. He was encouraged to follow closely with a PCP. Exam Vital Signs (past 8 hours): Oxygen Delivery Method Room Air Oxygen Flow Rate 0 Narrative Exam Narrative: GEN: no acute distress HEENT: no tongue swelling, no stridor Lungs: Clear to auscultation bilaterally Cardiac exam: Regular rate and rhythm with no murmurs Abdomen: Obese, soft, nontender Lower extremities: +edema bilaterally Skin exam: No rashes noted Neuro exam: moving all extremities Psychiatric exam: pleasant, cooperative Objective Labs Result Diagrams: 04/21/21 21:45 04/21/21 21:45 Labs: Laboratory Results - last 24 hr 04/22/21 03:55 Troponin I < 0.012 PFSH Medical History Diarrhea Pedal edema Shoulder pain Surgical History Hx of cholecystectomy Family History Grandfather Cancer Heart disease Social History household members: spouse and children Smoking Status: Current every day smoker Tobacco: How many years used: 10 alcohol intake: current substance use type: does not use Discharge Plan Discharge Plan Patient Disposition: Home Provider Discharge Comment: Mr. Johnson came in with an allergic reaction to the medication cefazolin brand name Ancef, an antibiotic. The reaction is called anaphylaxis, which is a severe allergic reaction, and potentially life threatening. Please make note of this medication as you should tell all your future providers of this allergy. In addition you will be prescribed two epi- pens. Please make sure to fill the prescription and have these available if ever needed again.Your heart appears to have some strain to it on ECHO. This could be from undiagnosed sleep apnea or from obesity. Please follow closely with your primary doctor since over time additional strain on the heart can lead to a w eaker heart. Please stop smoking to protect your heart as well. Discharge orders & Medications Prescriptions: New epinephrine 0.3 mg/0.3 mL auto-injector 0.3 mg IM Q5-15M PRN (Reason: anaphylaxis) Qty: 2 RF: 0 Diet/Activity/Treatments Diet: Regular Visit Report/Discharge Packet Instructions: DI for Anaphylaxis, How to use an Epinephrine Auto-Injector -- Adult Discharge Data Attending Provider: Hiral Mar VTE Deep Vein Thrombosis/Pulmonary Embolism Present on Admission: No MIPS - DC The patient has current or prior documentation of left ventricular ejection fraction (LVEF) less than 40%, or moderate or severely depressed left ventricular systolic function.: No
--- NOTE | 2021-04-22 11:07 | CM.DANOTE ---
Patient is a 25 year old male who was admitted on 04/21/21 for Allergic Reaction. Pt has L&I for insurance and his PCP is not listed. EMR was reviewed. Per MD, pt with scheduled shoulder surgery through [facility] and was given the antibiotic medication in prep for surgery and pt had allergic reaction. Pt was given medication and reaction resolved and was sent home to rescheduled ortho surgery at another date. Pt had reaction return with SOB and was admitted for observation. SW met bedside with pt and MD during rounds and pt confirms he lives at home in [place] nearby the hospital with his spouse and young child in an apt and pt is independent with ADL's at baseline and drives but was brought to the hospital by ambulance. Pt denies any hx of HH or SNF and is employed and pt is hopeful to d/c home today but aware he has an Echo and pt still remains on 1L O2 and will trial room air in an attempt to get him off oxygen. If pt's Echo returns normal and is able to tolerate room air then he can likely d/c home today and pt states he may need assist with ride home as his spouse may not be available for transport today. Plan: SW to follow for Echo and oxygen needs towards likely plan of d/c home when stable. SW to follow for any further identified needs. MADISON Galeana Discharge Planning/Care Management CM Discharge Assessment Start: 04/22/21 11:04 Freq: Status: Active Protocol: Document 04/22/21 11:04 (Rec: 04/22/21 11:07 [id number]) Discharge Planning Assessment Assigned Impregnation Operator MADISON Jacobsen DPOA/Assigned Designee Name informally spouse Chelsy Contact Information [phone] Advance Directives? No History Provided By Patient,Medical Record Has Patient been admitted in last 30 No days? Prior Living Arrangements Apartment/Condo Household Members spouse,children Type of transporation used prior to Drives own vehicle admit Independent with ADL's Yes Is patient alert and oriented? Yes Caregiver for Another Yes: child at home with spouse Community Services used prior to Physical Therapy admission: Patient/Family Preference OP PT Therapy Barriers to Discharge No Discharge Plan Home Community Services Physical Therapy Transportation Arrangement Pt may need assist with ride home at d/c Referrals Initiated None needed Review Status In Process Please Provide Date Initial DC 04/22/21 Assessment Was Performed Next Review Type Continued Stay Review
--- NOTE | 2021-04-22 16:25 | PC.NURSE ---
Addendum entered by Norma Valente R.N. 04/22/21 17:08: Pt's prescription for epi pens obtained from hospitalist and provided to pt with instruction/encouragement to fill salud. Pt reports is walking three blocks to home upon discharge. Hospitalist, Dr. Renteria, made aware. Pt left hospital in stable condition with all personal effects accounted for. Has discharge instructions in printed and verbal format as well as prescription in possession. Original Note: Discharge order reviewed. Pt is up ad dave in room with oxygen levels on room air 95% per continuous monitor. Reports feeling much better than upon arrival. States chest discomfort with deep inspiration resolving and improving. Telemetry discontinued and pt's saline lock to the left ac discontinued for discharge. Pt able to dress self. Encouraged pt to monitor blood pressure upon discharge and report to health care provider if remains elevated. Pt reports blood pressure was not elevated @ H day of outpatient surgery procedure that resulted in allergic reaction and subsequently hospitalization at this facility.
== END 2021-04-22 17:13 | disposition home or self-care (01) ==
LOC: ED 21:52 → AC 23:12
PROVIDERS: Admitting Provider Internal Medicine; Emergency Provider Emergency Medicine; Referring Provider Emergency Medicine; Visit Provider Internal Medicine
DX: T88.6XXA Anaphylactic reaction due to adverse effect of correct drug or medicament properly administered, initial encounter (principal); T36.1X5A Adverse effect of cephalosporins and other beta-lactam antibiotics, initial encounter; L50.0 Allergic urticaria; R60.0 Localized edema; R06.02 Shortness of breath; M25.511 Pain in right shoulder; F17.210 Nicotine dependence, cigarettes, uncomplicated; E66.01 Morbid (severe) obesity due to excess calories; Z68.41 Body mass index [BMI] 40.0-44.9, adult; Z20.822 Contact with and (suspected) exposure to COVID-19
CPT/HCPCS: 36415; 71045; 80053; 83880; 84484; 85025; 87635; 93005; 93306; 94760; 94762; 96365; 96366; 96375; 96376; 99284; C9803; G0378; J2930

== ENCOUNTER → 2022-06-01 11:46 | Outpatient (CLI) | payer OTHER, SELFPAY ==
[2021-04-22 00:01] VITALS: BMI 42.9
[2022-06-01 12:42] LABS: Add Manual Diff / Slide Review NO; Basophils Absolute Auto 100 /uL (0-100); Basophils Percent Auto 1.1 % (0-2); Eosinophils Absolute Auto 100 /uL (0-450); Eosinophils Percent Auto 1.6 % (2-4); Hematocrit 45.1 % (41-53); Hemoglobin 15.4 g/dL (13.5-17.5); Lymphocytes Absolute Auto 2300 /uL (1100-4500); Lymphocytes Percent Auto 28.3 % (25-40); Mean Corpuscular HGB Conc 34.1 % (30-36); Mean Corpuscular Hemoglobin 29.4 PG (26-34); Mean Corpuscular Volume 86.4 fL (80-100); Monocytes Absolute Auto 600 /uL (0-900); Monocytes Percent Auto 7.7 % (3-14); Neutrophils Absolute Auto 5000 /uL (1500-7000); Neutrophils Percent Auto 61.3 % (50-75); Platelet Count 276 X10^3/uL (150-400); Red Blood Cell Count 5.22 X10^6/uL (4.5-5.9); Red Cell Distribution Width 14.6 % (11.6-14.8); White Blood Cell Count 8.1 X10^3/uL (4.5-11.0)
[2022-06-01 13:47] LABS: Alanine Aminotransferase 36 IU/L (<50); Albumin 4.3 g/dL (3.5-5.0); Albumin Globulin Ratio 1.4 (1.0-2.8); Alkaline Phosphatase 100 U/L (38-126); Aspartate Aminotransferase 27 IU/L (17-59); BUN Creatinine Ratio 15.5 (6-22); Bilirubin Total 0.4 mg/dL (0.2-1.3); Blood Urea Nitrogen 15 mg/dL (9-20); Calcium 9.7 mg/dL (8.4-10.2); Carbon Dioxide 31 mmol/L (22-32); Chloride 105 mmol/L (98-107); Cholesterol 203 mg/dL (140-199); Estimated Glomerular Filt Rate > 60 mL/min (>60); Glucose 111 mg/dL (70-100); HDL Cholesterol 37 mg/dL (40-60); HEMOLYSIS < 15 (0-50); LDL Cholesterol Calculated 146 mg/dL (<100); Potassium 4.5 mmol/L (3.4-5.1); Sodium 142 mmol/L (137-145); Total Protein 7.3 g/dL (6.3-8.2); Triglycerides 100 mg/dL (35-150)
[2022-06-01 14:13] LABS: TSH w/ Reflex to FT4 1.12 uIU/mL (0.47-4.68)
== END ==
PROVIDERS: PCP Registered Nurse; Referring Provider Registered Nurse; Visit Provider Registered Nurse
DX: Z01.818 Encounter for other preprocedural examination (principal)
CPT/HCPCS: 36415; 80053; 80061; 84443; 85025

== ENCOUNTER → 2022-10-06 13:31 | Outpatient (CLI) | payer OTHER, SELFPAY ==
[2021-04-22 00:01] VITALS: BMI 42.9
== END ==
PROVIDERS: PCP Registered Nurse; Referring Provider Orthopaedic Surgery; Visit Provider Orthopaedic Surgery
DX: Z01.818 Encounter for other preprocedural examination (principal)
CPT/HCPCS: 93005; 93010

== ENCOUNTER → 2023-04-19 11:17 | Outpatient (CLI) | payer OTHER, SELFPAY ==
[2021-04-22 00:01] VITALS: BMI 42.9
[2023-04-19 12:50] LABS: Add Manual Diff / Slide Review NO; Basophils Absolute Auto 100 /uL (0-100); Basophils Percent Auto 1.1 % (0-2); Eosinophils Absolute Auto 200 /uL (0-450); Eosinophils Percent Auto 2.2 % (2-4); Hematocrit 43.1 % (41-53); Hemoglobin 14.3 g/dL (13.5-17.5); Lymphocytes Absolute Auto 2500 /uL (1100-4500); Lymphocytes Percent Auto 31.6 % (25-40); Mean Corpuscular HGB Conc 33.2 % (30-36); Mean Corpuscular Hemoglobin 28.8 PG (26-34); Mean Corpuscular Volume 86.8 fL (80-100); Monocytes Absolute Auto 600 /uL (0-900); Monocytes Percent Auto 7.5 % (3-14); Neutrophils Absolute Auto 4600 /uL (1500-7000); Neutrophils Percent Auto 57.6 % (50-75); Platelet Count 267 X10^3/uL (150-400); Red Blood Cell Count 4.96 X10^6/uL (4.5-5.9); Red Cell Distribution Width 14.1 % (11.6-14.8); White Blood Cell Count 7.9 X10^3/uL (4.5-11.0)
[2023-04-19 13:21] LABS: Alanine Aminotransferase 47 IU/L (<50); Albumin 3.8 g/dL (3.5-5.0); Albumin Globulin Ratio 1.3 (1.0-2.8); Alkaline Phosphatase 106 U/L (38-126); Aspartate Aminotransferase 28 IU/L (17-59); BUN Creatinine Ratio 14.1 (6-22); Bilirubin Total 0.4 mg/dL (0.2-1.3); Blood Urea Nitrogen 13 mg/dL (9-20); Calcium 9.3 mg/dL (8.4-10.2); Carbon Dioxide 29 mmol/L (22-32); Chloride 106 mmol/L (98-107); Estimated Glomerular Filt Rate > 60 mL/min (>60); Globulin 2.9 g/dL (1.7-4.1); Glucose 100 mg/dL (70-100); HEMOLYSIS < 15 (0-50); Potassium 4.5 mmol/L (3.4-5.1); Sodium 140 mmol/L (137-145); Total Protein 6.7 g/dL (6.3-8.2)
[2023-04-19 13:59] LABS: TSH w/ Reflex to FT4 0.94 uIU/mL (0.47-4.68)
[2023-04-20 09:18] LABS: x Labcorp Estim. Avg Glu (eAG) 128 mg/dL (.); x Labcorp Hemoglobin A1c 6.1 % (4.8-5.6)
== END ==
PROVIDERS: PCP Registered Nurse; Referring Provider Registered Nurse; Visit Provider Registered Nurse
DX: Z13.228 Encounter for screening for other metabolic disorders (principal); Z13.29 Encounter for screening for other suspected endocrine disorder; Z13.0 Encounter for screening for diseases of the blood and blood-forming organs and certain disorders involving the immune mechanism; Z01.818 Encounter for other preprocedural examination; M75.101 Unspecified rotator cuff tear or rupture of right shoulder, not specified as traumatic
CPT/HCPCS: 36415; 80053; 83036; 84443; 85025

== ENCOUNTER 2023-11-13 21:32 | Emergency (ER) | payer OTHER, MEDICAID, SELFPAY ==
[2021-04-22 00:01] VITALS: BMI 42.9
[2023-11-13 21:36] VITALS: BP 144/85; PULSE 103; RESP 24; TEMP 36.4; O2SAT 96; BMI 51.5
--- NOTE | 2023-11-13 22:51 | ED.WOUNDLAC ---
HPI - Wound/Laceration General Chief Complaint: Wound/Laceration Stated Complaint: Lleg above ankle/ wound/ discharge/ painful Time Seen by Provider: 11/13/23 22:25 Source: patient Mode of arrival: Ambulatory History of Present Illness HPI narrative: 27-year-old gentleman with intermittent access to medical care, chronic lymphedema on no current medical management presents with increasing pain in the left lower extremity. Both legs are significantly swollen with chronic venous stasis changes. There is a superficial ulcer on the right lower extremity that does not appear to be infected but does have some moist eschar over it. Over the left lower extremity there is patchy superficial ulceration with eschar and increasing erythema approximately 8 x 14 cm. No obvious drainage but with the increasing pain concern for deeper infection including osteomyelitis. Patient denies fever, cough, chills notes that the pain has been increasing in his legs since June but has become significantly worse over the last number of days and today is becoming more and more difficult to walk on secondary to pain. Related Data Previous Rx's Medication Instructions Recorded epinephrine 0.3 mg/0.3 mL 0.3 mg (0.3 mL) IM Q5-15M PRN 04/22/21 injection, auto-injector anaphylaxis #2 ea doxycycline hyclate 100 mg capsule 100 mg PO BID #20 caps 11/14/23 Allergies Allergy/AdvReac Type Severity Reaction Status Date / Time cefazolin Allergy Severe Anaphylaxis Verified 04/21/21 22:03 bacitracin AdvReac Mild Rash Verified 12/18/18 10:55 [From Neosporin ([id number])] neomycin AdvReac Mild Rash Verified 12/18/18 10:55 [From Neosporin ([id number])] polymyxin B AdvReac Mild Rash Verified 12/18/18 10:55 [From Neosporin ([id number])] Review of Systems Review of Systems Narrative: Pertinent positive and negative findings as per HPI Patient History Medical History (Updated 11/14/23 @ 02:25 by Chelle Morel MD) Lymphedema Shoulder pain Surgical History Hx of cholecystectomy Family History Grandfather Cancer Heart disease Social History household members: spouse and children Smoking Status: Current every day smoker Tobacco: How many years used: 10 alcohol intake: current substance use type: does not use Smoking Status: Current every day smoker alcohol intake frequency: holidays/special occasions only Substance Use Type: does not use Exam Initial Vital Signs Initial Vital Signs: Vital Signs Temperature 97.5 F L 11/13/23 21:36 Pulse Rate 103 H 11/13/23 21:36 Respiratory Rate 24 11/13/23 21:36 Blood Pressure 144/85 H 11/13/23 21:36 Pulse Oximetry 96 11/13/23 21:36 Oxygen Delivery Method Room Air 11/13/23 21:36 General: Healthy appearing, in no acute distress. Able to give a complete and coherent history. BMI of 51.6 Respiratory: Lungs are clear to auscultation, no wheezing no rales no rhonchi. Full and symmetrical air movement Cardiac: Regular rate and rhythm no murmurs no bruits Abdomen: Soft, obese, nontender, no flank pain Skin: Chronic venous stasis changes of the lower extremities, ulceration with cellulitis over the left lower extremity. Chronic much smaller ulceration without infection of the right lower extremity. Neurologic: Grossly neurologically intact with no obvious asymmetries or abnormalities Extremities: No trauma, notable lymphedema bilaterally Psych: Cooperative, appropriate insight and affect Course Orders Ordered: ED Orders 11/13/23 23:07 CT LE LT w con Stat 11/13/23 23:22 Complete Blood Count AUTO DIFF Stat Comprehensive Metabolic Panel Stat Lactate (Lactic Acid) Stat 11/13/23 23:35 Blood Culture Stat Discontinued Medications Piperacillin Sod/Tazobactam (Sod 4.5 gm/ Sodium Chloride) 100 mls @ 200 mls/hr IV NOW ONE Stop: 11/13/23 23:31 Last Infusion: 11/14/23 00:56 Dose: Infused Documented By: Admin: 11/14/23 00:26 Dose: 200 mls/hr Documented By: CHRISTIANO Ketorolac Tromethamine (Ketorolac 30 Mg/Ml Vial) 15 mg IV NOW ONE Stop: 11/13/23 23:08 Last Admin: 11/13/23 23:59 Dose: 15 mg Documented By: CHRISTIANO Vital Signs Vital signs: Vital Signs - 8 hr 11/13/23 21:36 11/14/23 00:29 11/14/23 00:30 Temperature 97.5 F L Pulse Rate 103 H 100 H 99 H Respiratory Rate 24 Blood Pressure 144/85 H Pulse Oximetry 96 99 99 Oxygen Delivery Method Room Air 11/14/23 00:31 11/14/23 00:31 11/14/23 01:00 Temperature Pulse Rate 96 H Respiratory Rate 18 Blood Pressure 140/88 143/80 H Pulse Oximetry 99 Oxygen Delivery Method 11/14/23 01:00 11/14/23 01:30 11/14/23 01:32 Temperature Pulse Rate 96 H 102 H Respiratory Rate Blood Pressure 142/80 H Pulse Oximetry 98 98 Oxygen Delivery Method 11/14/23 01:32 11/14/23 02:00 11/14/23 02:00 Temperature Pulse Rate 97 H 99 H Respiratory Rate 20 Blood Pressure 129/76 Pulse Oximetry 99 94 Oxygen Delivery Method MDM - Wound/Laceration Lab Data 11/13/23 23:22 11/13/23 23:22 Labs: Lab Results 11/13/23 Range/Units 23:22 WBC 10.6 (4.5-11.0) X10^3/uL RBC 5.09 (4.5-5.9) X10^6/uL Hgb 14.5 (13.5-17.5) g/dL Hct 43.6 (41-53) % MCV 85.7 (80-100) fL MCH 28.4 (26-34) PG MCHC 33.1 (30-36) % RDW 14.8 (11.6-14.8) % Plt Count 293 (150-400) X10^3/uL Neut % (Auto) 66.4 (50-75) % Lymph % (Auto) 21.1 L (25-40) % [place] % (Auto) 10.3 (3-14) % Eos % (Auto) 1.3 L (2-4) % Baso % (Auto) 0.9 (0-2) % Neut # (Auto) 7100 H (8533-3197) /uL Lymph # (Auto) 2200 (6747-9129) /uL [place] # (Auto) 1100 H (0-900) /uL Eos # (Auto) 100 (0-450) /uL Baso # (Auto) 100 (0-100) /uL Sodium 142 (137-145) mmol/L Potassium 3.7 (3.4-5.1) mmol/L Chloride 105 (98-107) mmol/L Carbon Dioxide 27 (22-32) mmol/L BUN 11 (9-20) mg/dL Creatinine 0.90 (0.66-1.25) mg/dL Estimated GFR > 60 (>60) mL/min BUN/Creatinine Ratio 12.2 (6-22) Glucose 98 (70-100) mg/dL Lactate 1.2 (0.7-2.1) mmol/L Calcium 9.7 (8.4-10.2) mg/dL Total Bilirubin 0.5 (0.2-1.3) mg/dL AST 39 (17-59) IU/L ALT 52 H (<50) IU/L Alkaline Phosphatase 107 (38-126) U/L Total Protein 7.8 (6.3-8.2) g/dL Albumin 4.2 (3.5-5.0) g/dL Globulin 3.6 (1.7-4.1) g/dL Albumin/Globulin Ratio 1.2 (1.0-2.8) MDM Narrative Medical decision making narrative: CC: Is increasing pain and redness left lower extremity Complicating co-morbidities: Lymphedema Data collected from: patient Social determinants of health that may influence the patients condition: Minimal access to medical care Medical records reviewed: Hospital H&P reviewed from March of 2021 Differential considered: Chronic venous stasis with ulceration, cellulitis, abscess, osteomyelitis Exam documented above, pertinent findings include: 28-year-old gentleman with a BMI of 51.6. Chronic venous stasis changes bilaterally. Superficial ulceration on the right lower anterior kc that does not appear to be significantly effective. Spreading ulceration over the left anterior kc increasing redness and warmth with concern for infection complicated by his lymphedema. Lab Test results independently reviewed as above. Pertinent findings: CBC Is reassuring with white count at 10.6 no significant left shift Chemistries are reassuring with no significant abnormalities Imaging studies independently reviewed: CT scan of the left lower extremity shows generalized prominent soft tissue swelling can be seen involving the left lower extremity, particularly distally and anteriorly. No focal fluid collections are seen to suggest abscess. Prominent skin thickening is seen. No definite muscular involvement is seen. No soft tissue gas is seen. Treatments: Patient had an anaphylactic reaction to Keflex so he was given Zosyn and vancomycin with concerns for cellulitis/abscess of the left lower extremity A healthcare for referral prescription for [facility] is initiated for wound care. Discussion: 28-year-old gentleman with chronic lymphedema and poorly healing ulcers the left expanding and hurting more over the last week. CT scan shows significant edema but no actual abscess. Labs suggest infection but no sepsis. With his significant lymphedema I could make an argument for hospitalization but with his otherwise ambulatory status can also make an argument for discharge home. With shared decision-making in chose to go home. Will discharge him with doxycycline for 10 days. Also see if we can do an ER referral to wound care which I think is going to be of more benefit than anything else at this time. He does have an appointment with his primary care physician but it is a number of months away and has been unable to get 1 sooner. I do believe he would benefit from further workup for his chronic lymphedema and an additional trial of diuretics to see if there of any beneficial. Currently he is alert, able to care for himself, questions are answered, he understands the need to return if symptoms worsen. He is safe for discharge Discharge Plan Departure Patient Disposition: Home Clinical Impression: Cellulitis of left leg, Chronic acquired lymphedema Instructions: DI for Cellulitis -- Adult Activity Restrictions/Additional Instructions: Thank you for coming in today Your blood work and CT scan show clear infection as you had suspected however there does not appear to be any evidence of sepsis or deeper abscess. We discussed hospital admission versus outpatient treatment and decided to begin with outpatient treatment which I do think is reasonable. I gave you 1st dose of doxycycline in the emergency department and a prescription for 10 additional days Prescription was electronically transmitted to [facility] in [place] I do think that you would benefit from wound care evaluation. I will see if I can place an emergency room consultation/referral but it may require primary care referral. I would also encourage you to call the wound care clinic directly and tell him you are in the emergency department and see if they are able to get you in for care for lymphedema and lower extremity cellulitis The phone number for the wound care clinic is [phone] Prescriptions: New doxycycline hyclate 100 mg capsule 100 mg PO BID Qty: 20 0RF No Action epinephrine 0.3 mg/0.3 mL auto-injector 0.3 mg IM Q5-15M PRN (Reason: anaphylaxis) Qty: 2 0RF Rx Instructions: do not exceed 3 doses per episode Referrals: Cornelia Haro FNP-C [Primary Care Provider] - Stand Alone Forms: Patient Portal/API
--- NOTE | 2023-11-13 23:07 | DI.CT.S_ITS ---
PROCEDURE: CT LE LT W CON INDICATIONS: LLE cellulitis/lymphedema. ? abscess TECHNIQUE: After the administration of intravenous contrast, 3 mm axial sections acquired of the distal left lower extremity, with coronal and sagittal reformats. COMPARISON: None. FINDINGS: Image quality: Excellent. Bones: No significant bony abnormality is seen. Soft tissues: Generalized prominent soft tissue swelling can be seen involving the left lower extremity, particularly distally and anteriorly. No focal fluid collections are seen to suggest abscess. Prominent skin thickening is seen. No definite muscular involvement is seen. No soft tissue gas is seen. IMPRESSION: Advanced soft tissue cellulitis is seen, without a focal abscess collection seen. No soft tissue gas or muscular involvement can be seen. Dictated by: Rick Lilly M.D. on 11/13/2023 at 23:35 Approved by: Rick Lilly M.D. on 11/13/2023 at 23:37
[2023-11-13 23:34] LABS: Add Manual Diff / Slide Review NO; Basophils Absolute Auto 100 /uL (0-100); Basophils Percent Auto 0.9 % (0-2); Eosinophils Absolute Auto 100 /uL (0-450); Eosinophils Percent Auto 1.3 % (2-4); Hematocrit 43.6 % (41-53); Hemoglobin 14.5 g/dL (13.5-17.5); Lymphocytes Absolute Auto 2200 /uL (1100-4500); Lymphocytes Percent Auto 21.1 % (25-40); Mean Corpuscular HGB Conc 33.1 % (30-36); Mean Corpuscular Hemoglobin 28.4 PG (26-34); Mean Corpuscular Volume 85.7 fL (80-100); Monocytes Absolute Auto 1100 /uL (0-900); Monocytes Percent Auto 10.3 % (3-14); Neutrophils Absolute Auto 7100 /uL (1500-7000); Neutrophils Percent Auto 66.4 % (50-75); Platelet Count 293 X10^3/uL (150-400); Red Blood Cell Count 5.09 X10^6/uL (4.5-5.9); Red Cell Distribution Width 14.8 % (11.6-14.8); White Blood Cell Count 10.6 X10^3/uL (4.5-11.0)
[2023-11-13 23:46] LABS: Alanine Aminotransferase 52 IU/L (<50); Albumin 4.2 g/dL (3.5-5.0); Albumin Globulin Ratio 1.2 (1.0-2.8); Alkaline Phosphatase 107 U/L (38-126); Aspartate Aminotransferase 39 IU/L (17-59); BUN Creatinine Ratio 12.2 (6-22); Bilirubin Total 0.5 mg/dL (0.2-1.3); Blood Urea Nitrogen 11 mg/dL (9-20); Calcium 9.7 mg/dL (8.4-10.2); Carbon Dioxide 27 mmol/L (22-32); Chloride 105 mmol/L (98-107); Estimated Glomerular Filt Rate > 60 mL/min (>60); Globulin 3.6 g/dL (1.7-4.1); Glucose 98 mg/dL (70-100); HEMOLYSIS < 15 (0-50); Potassium 3.7 mmol/L (3.4-5.1); Sodium 142 mmol/L (137-145); Total Protein 7.8 g/dL (6.3-8.2)
[2023-11-13 23:47] LABS: Lactate (Lactic Acid) 1.2 mmol/L (0.7-2.1)
[2023-11-13] MEDS: KETOROLAC 30 MG/ML VIAL 15 MG IV (23:59)
[2023-11-14] VITALS (8 sets, daily range): BP systolic 129–143; BP diastolic 73–88; PULSE 96–102; RESP 18–20; O2SAT 94–99
[2023-11-14] MEDS: PIPERACILLIN/TAZO 4.5 GM in SODIUM CHLORIDE 0.9% 100 ML IV (00:26)
== END 2023-11-14 02:51 | disposition home or self-care (01) ==
PROVIDERS: Emergency Provider Emergency Medicine; Family Provider Registered Nurse; PCP Registered Nurse
DX: L03.116 Cellulitis of left lower limb (principal); I89.0 Lymphedema, not elsewhere classified
CPT/HCPCS: 36415; 73701; 80053; 83605; 85025; 87040; 96365; 96375; 99283; 99284; J1885; J2543; Q9967

== ENCOUNTER → 2023-11-17 13:59 | Outpatient (CLI) | payer OTHER, MEDICAID, SELFPAY ==
[2021-04-22 00:01] VITALS: BMI 42.9
== END ==
PROVIDERS: Family Provider Registered Nurse; PCP Registered Nurse; Referring Provider Emergency Medicine; Visit Provider Physician Assistant
DX: I89.0 Lymphedema, not elsewhere classified (principal); L97.822 Non-pressure chronic ulcer of other part of left lower leg with fat layer exposed; L97.812 Non-pressure chronic ulcer of other part of right lower leg with fat layer exposed; R60.0 Localized edema; L53.9 Erythematous condition, unspecified
CPT/HCPCS: 11042; 11045; 99204; 99213

== ENCOUNTER → 2023-12-05 15:04 | Outpatient (CLI) | payer OTHER, MEDICAID, SELFPAY ==
[2021-04-22 00:01] VITALS: BMI 42.9
== END ==
LOC: WC 15:05
PROVIDERS: Family Provider Registered Nurse; PCP Registered Nurse; Referring Provider Emergency Medicine; Visit Provider Surgery
DX: I89.0 Lymphedema, not elsewhere classified (principal); L97.812 Non-pressure chronic ulcer of other part of right lower leg with fat layer exposed; L97.822 Non-pressure chronic ulcer of other part of left lower leg with fat layer exposed; F17.210 Nicotine dependence, cigarettes, uncomplicated
CPT/HCPCS: 11042; 11045; 87070; 87075; 87147; 87205; 99213

== ENCOUNTER → 2023-12-07 10:52 | Outpatient (CLI) | payer OTHER, MEDICAID, SELFPAY ==
[2021-04-22 00:01] VITALS: BMI 42.9
== END ==
LOC: WC 10:56
PROVIDERS: Family Provider Registered Nurse; PCP Registered Nurse; Referring Provider Emergency Medicine; Visit Provider Surgery
DX: I89.0 Lymphedema, not elsewhere classified (principal); S81.801A Unspecified open wound, right lower leg, initial encounter; S81.802A Unspecified open wound, left lower leg, initial encounter
CPT/HCPCS: 29581

== ENCOUNTER → 2023-12-12 14:21 | Outpatient (CLI) | payer OTHER, MEDICAID, SELFPAY ==
[2021-04-22 00:01] VITALS: BMI 42.9
== END ==
LOC: WC 14:21
PROVIDERS: Family Provider Registered Nurse; PCP Registered Nurse; Referring Provider Emergency Medicine; Visit Provider Physician Assistant
DX: L97.322 Non-pressure chronic ulcer of left ankle with fat layer exposed (principal); L97.312 Non-pressure chronic ulcer of right ankle with fat layer exposed; I89.0 Lymphedema, not elsewhere classified; L53.9 Erythematous condition, unspecified; F17.210 Nicotine dependence, cigarettes, uncomplicated; Z79.2 Long term (current) use of antibiotics
CPT/HCPCS: 11042; 11045; 99214

== ENCOUNTER → 2023-12-19 07:58 | Outpatient (CLI) | payer OTHER, MEDICAID, SELFPAY ==
[2021-04-22 00:01] VITALS: BMI 42.9
== END ==
LOC: WC 12-20 08:00
PROVIDERS: Family Provider Registered Nurse; PCP Registered Nurse; Referring Provider Emergency Medicine; Visit Provider Surgery
DX: I89.0 Lymphedema, not elsewhere classified (principal); L97.822 Non-pressure chronic ulcer of other part of left lower leg with fat layer exposed; L97.812 Non-pressure chronic ulcer of other part of right lower leg with fat layer exposed; R60.0 Localized edema; L53.9 Erythematous condition, unspecified
CPT/HCPCS: 29581

== ENCOUNTER → 2023-12-26 15:09 | Outpatient (CLI) | payer OTHER, MEDICAID, SELFPAY ==
[2021-04-22 00:01] VITALS: BMI 42.9
== END ==
LOC: WC 15:09
PROVIDERS: Family Provider Registered Nurse; PCP Registered Nurse; Referring Provider Emergency Medicine; Visit Provider Surgery
DX: I89.0 Lymphedema, not elsewhere classified (principal); L97.812 Non-pressure chronic ulcer of other part of right lower leg with fat layer exposed; L97.822 Non-pressure chronic ulcer of other part of left lower leg with fat layer exposed; L53.9 Erythematous condition, unspecified; F17.210 Nicotine dependence, cigarettes, uncomplicated
CPT/HCPCS: 97602; 99213

== ENCOUNTER → 2024-01-02 15:06 | Outpatient (CLI) | payer BC, OTHER, SELFPAY ==
[2021-04-22 00:01] VITALS: BMI 42.9
== END ==
PROVIDERS: Family Provider Registered Nurse; PCP Registered Nurse; Referring Provider Emergency Medicine; Visit Provider Surgery
DX: I89.0 Lymphedema, not elsewhere classified (principal); L97.822 Non-pressure chronic ulcer of other part of left lower leg with fat layer exposed; L97.812 Non-pressure chronic ulcer of other part of right lower leg with fat layer exposed; R60.0 Localized edema; L98.8 Other specified disorders of the skin and subcutaneous tissue
CPT/HCPCS: 29581; 97597; 99213

== ENCOUNTER → 2024-01-09 15:26 | Outpatient (CLI) | payer BC, OTHER, SELFPAY ==
[2021-04-22 00:01] VITALS: BMI 42.9
== END ==
PROVIDERS: Family Provider Registered Nurse; PCP Registered Nurse; Referring Provider Emergency Medicine; Visit Provider Surgery
DX: I89.0 Lymphedema, not elsewhere classified (principal); L97.322 Non-pressure chronic ulcer of left ankle with fat layer exposed; E66.9 Obesity, unspecified; Z68.43 Body mass index [BMI] 50.0-59.9, adult
CPT/HCPCS: 29581; 97602; 99213

== ENCOUNTER → 2024-01-16 14:59 | Outpatient (CLI) | payer BC, MEDICAID, OTHER, SELFPAY ==
[2021-04-22 00:01] VITALS: BMI 42.9
== END ==
PROVIDERS: Family Provider Registered Nurse; PCP Registered Nurse; Referring Provider Registered Nurse; Visit Provider Surgery
DX: I89.0 Lymphedema, not elsewhere classified (principal); L97.322 Non-pressure chronic ulcer of left ankle with fat layer exposed
CPT/HCPCS: 29581; 97602; 99213

== ENCOUNTER → 2024-01-23 15:08 | Outpatient (CLI) | payer BC, OTHER, SELFPAY ==
[2021-04-22 00:01] VITALS: BMI 42.9
== END ==
PROVIDERS: Family Provider Registered Nurse; PCP Registered Nurse; Referring Provider Emergency Medicine; Visit Provider Surgery
DX: I89.0 Lymphedema, not elsewhere classified (principal); L97.322 Non-pressure chronic ulcer of left ankle with fat layer exposed; R23.4 Changes in skin texture
CPT/HCPCS: 99213

== ENCOUNTER → 2024-02-06 15:25 | Outpatient (CLI) | payer BC, OTHER, SELFPAY ==
[2021-04-22 00:01] VITALS: BMI 42.9
== END ==
PROVIDERS: Family Provider Registered Nurse; PCP Registered Nurse; Referring Provider Emergency Medicine; Visit Provider Surgery
DX: I89.0 Lymphedema, not elsewhere classified (principal); L97.322 Non-pressure chronic ulcer of left ankle with fat layer exposed; L02.416 Cutaneous abscess of left lower limb; L53.9 Erythematous condition, unspecified; R23.4 Changes in skin texture
CPT/HCPCS: 99212; 99213

== ENCOUNTER → 2024-02-07 14:15 | Outpatient (CLI) | payer BC, OTHER, SELFPAY ==
[2021-04-22 00:01] VITALS: BMI 42.9
== END ==
PROVIDERS: Family Provider Registered Nurse; PCP Registered Nurse; Referring Provider Emergency Medicine; Visit Provider Surgery
DX: L97.322 Non-pressure chronic ulcer of left ankle with fat layer exposed (principal); I89.0 Lymphedema, not elsewhere classified; L02.415 Cutaneous abscess of right lower limb; R23.4 Changes in skin texture; F17.210 Nicotine dependence, cigarettes, uncomplicated
CPT/HCPCS: 10060; 87070; 87075; 87077; 87147; 87186; 87205

== ENCOUNTER → 2024-02-13 15:15 | Outpatient (CLI) | payer BC, OTHER, SELFPAY ==
[2021-04-22 00:01] VITALS: BMI 42.9
== END ==
PROVIDERS: Family Provider Registered Nurse; PCP Registered Nurse; Referring Provider Emergency Medicine; Visit Provider Surgery
DX: L97.322 Non-pressure chronic ulcer of left ankle with fat layer exposed (principal); I89.0 Lymphedema, not elsewhere classified; L02.415 Cutaneous abscess of right lower limb; R23.3 Spontaneous ecchymoses; L53.9 Erythematous condition, unspecified; F17.210 Nicotine dependence, cigarettes, uncomplicated; Z79.2 Long term (current) use of antibiotics
CPT/HCPCS: 99213

== ENCOUNTER → 2024-02-27 14:53 | Outpatient (CLI) | payer BC, SELFPAY ==
[2021-04-22 00:01] VITALS: BMI 42.9
== END ==
LOC: WC 14:58
PROVIDERS: Family Provider Registered Nurse; PCP Registered Nurse; Visit Provider Surgery
DX: I89.0 Lymphedema, not elsewhere classified (principal); L97.322 Non-pressure chronic ulcer of left ankle with fat layer exposed; L02.415 Cutaneous abscess of right lower limb; L53.9 Erythematous condition, unspecified; R23.4 Changes in skin texture; F17.210 Nicotine dependence, cigarettes, uncomplicated
CPT/HCPCS: 99212; 99213

== ENCOUNTER → 2024-03-05 10:09 | Outpatient (CLI) | payer BC, SELFPAY ==
[2021-04-22 00:01] VITALS: BMI 42.9
== END ==
LOC: WC 03-06 10:10
PROVIDERS: Family Provider Registered Nurse; PCP Registered Nurse; Visit Provider Surgery
DX: L97.322 Non-pressure chronic ulcer of left ankle with fat layer exposed (principal); L02.415 Cutaneous abscess of right lower limb; I89.0 Lymphedema, not elsewhere classified; L53.9 Erythematous condition, unspecified; R23.3 Spontaneous ecchymoses
CPT/HCPCS: 99212; 99213

== ENCOUNTER → 2024-03-19 14:56 | Outpatient (CLI) | payer BC, SELFPAY ==
[2021-04-22 00:01] VITALS: BMI 42.9
== END ==
LOC: WC 14:57
PROVIDERS: Family Provider Registered Nurse; PCP Registered Nurse; Referring Provider Registered Nurse; Visit Provider Surgery
DX: I89.0 Lymphedema, not elsewhere classified (principal); L97.312 Non-pressure chronic ulcer of right ankle with fat layer exposed; L97.322 Non-pressure chronic ulcer of left ankle with fat layer exposed; L53.9 Erythematous condition, unspecified; R23.3 Spontaneous ecchymoses; F17.210 Nicotine dependence, cigarettes, uncomplicated; Z79.2 Long term (current) use of antibiotics
CPT/HCPCS: 11042; 99213

== ENCOUNTER 2024-04-04 13:00 | Outpatient (RCR) | payer BC, OTHER, SELFPAY ==
[2021-04-22 00:01] VITALS: BMI 42.9
--- NOTE | 2024-01-10 16:13 | PT.OIE ---
Current Diagnoses Lymphedema, not elsewhere classified (01/10/24) Difficulty in walking, not elsewhere classified (01/10/24) Past Medical History (Last Updated 11/13/23 @ 23:04 by Chelle Morel MD) Lymphedema Shoulder pain Past Surgical History (Last Reviewed 04/22/21 @ 02:13 by Onel Woodruff MD) Hx of cholecystectomy Visit Care Team Role Provider Type MERLYN Nunes Family Provider Non-Staff Primary Care Provider Specialty: Family Practice Address: [address] [place] [address], [address] Email: Lamar Garcia PA-C Attending Provider Advanced Economics Teacher Referring Provider Specialty: Medical Wound Care Address: [address] [place] [address], [address] Email: [email or web address] Physical Therapy Initial Evaluation PT-OP-A Visit Information Start: 01/10/24 08:07 Freq: Status: Active Protocol: Document 01/10/24 09:02 [facility] (Rec: 01/10/24 09:56 [facility] [id number]) Out-Patient Physical Therapy Visit Information Visit Information Visit Type Initial Evaluation Visit Start Time 09:02 Visit Stop Time 10:30 Visit Number 1 Evaluation Information Evaluation Date 01/10/24 PT-OP-B Current Condition Start: 01/10/24 08:07 Freq: Status: Active Protocol: Document 01/10/24 09:02 [facility] (Rec: 01/10/24 09:56 [facility] [id number]) Current Condition History of Current Condition Onset Date 2 years Current Complaints cyndee LE swelling knees down History of Current Condition Legs gradual onset of swelling , no known reason. States his legs were already a bit swollen and then he bumped his leg on bed large wound opened up which turned into massive wounds on legs left greater than right. Right side currently closed up, wound on left leg almost completely closed. No previous treatment for lymphedema. Spends a lot of time sitting. 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 Has gained a lot of weight past 5 years after shoulder injury with 2 surgeries. Prior Treatments and Tests current wound care using Coban wraps 1x/wk due to LE wounds Treatment Goals Patient/Caregiver Goals decrease edema, know how to self manage Prior Functional Status Baseline Function- ADL's Independent Baseline Function- Mobility Independent Baseline Function- Gait no limitations Baseline Function- Work/School worked physical job Baseline Function- Recreation/Hobbies no limitations Current Functional Impairments (Reported) Functional Limitations- ADL's legs heavy, takes more time Functional Limitations- Mobility/Gait limited ability to walk due to heavy legs Functional Limitations- Work/School sits for job Functional Limitations- Recreation/ limited due to heaviness of Hobbies legs Personal Factors Other Personal Factors That May Effect smoker Therapy/Recovery PT-OP-C Subjective Start: 01/10/24 08:07 Freq: Status: Active Protocol: Document 01/10/24 09:02 [facility] (Rec: 01/10/24 16:10 [facility] [id number]) Patient Questionnaires Lymphedema Life Impact Score Lymphedema Score 61% OP-PT Pain Assessment Pain Assessment Grid Paper Pain Assessment Grid Completed Yes Location cyndee LE's Intensity 3 PT-OP-J Posture/Palpation/Skin Start: 01/10/24 08:07 Freq: Status: Active Protocol: Document 01/10/24 09:02 [facility] (Rec: 01/10/24 16:10 [facility] [id number]) Palpation Assessment Location cyndee LE's Palpation Findings Edema Palpation Details no increased warmth Skin Assessment Edema Assessment cyndee lower legs Edema Appearance Discolored,Puffy Subjective Edema Description Pain Comments dry, scaly skin especially on toes, heels. PT-OP-K Range of Motion Start: 01/10/24 08:07 Freq: Status: Active Protocol: Document 01/10/24 09:02 [facility] (Rec: 01/10/24 16:10 [facility] [id number]) Hip Goniometric Range of Motion Hip cyndee Hip ROM WFL Yes Knee Goniometric Range of Motion Knee cyndee Knee ROM WFL Yes Ankle and Foot Goniometric Range of Motion Ankle and Foot cyndee Dorsiflexion with Knee Flexed 5 Dorsiflexion with Knee Extended 0 PT-OP-N Lymphedema Start: 01/10/24 08:07 Freq: Status: Active Protocol: Document 01/10/24 09:02 [facility] (Rec: 01/10/24 09:56 [facility] [id number]) Lymphedema Measurements Lower Extremity Circumference Measurements Right Affected MT Heads 30.9 cm Mid-foot 30.8 cm Medial Malleolus 43.6 cm 10 cm From Medial Malleolus 47.4 cm 20 cm From Medial Malleolus 50.9 cm 30 cm From Medial Malleolus 56.3 cm 40 cm From Medial Malleolus 61.8 cm 50 cm From Medial Malleolus 72 cm 60 cm From Medial Malleolus 80.8 cm Left Affected MT Heads 31.6 cm Mid-foot 31.3 cm Medial Malleolus 41.5 cm 10 cm From Medial Malleolus 46.8 cm 20 cm From Medial Malleolus 52.3 cm 30 cm From Medial Malleolus 52.1 cm 40 cm From Medial Malleolus 55.7 cm 50 cm From Medial Malleolus 60.4 cm 60 cm From Medial Malleolus 70.8 cm 70 cm From Medial Malleolus 81 cm Knee Joint 60.4 cm PT-OP-Q Treatments Start: 01/10/24 08:07 Freq: Status: Active Protocol: Document 01/10/24 09:02 [facility] (Rec: 01/10/24 16:10 [facility] [id number]) Lymphedema Treatment Manual Lymphatic Drainage Location initiated abbreviated version Duration 15 Lymphedema Wrapping Body Location cyndee lower legs toes to knees Materials Size G Tricofix, 2 rolls ARtiflex, 4 rolls COmprilan 6 8, 10x2 with Komprex kidneys right ankles Sequential Lymphedema Exercises Location discussed and issued written HO Compression Garment Assessment Compression Garment Assessment Details NA Patient Education Lymphedema Pathology instructed and issued HO Lymphedema Prevention instructed and issued HO Lymphedema Precautions instructed and issued HO Compression Garments initial discussion and local and online sources given Self Manual Lymphatic Drainage insgtructed and abbreviated MLD performed Sequential Lymphedema Exercises instructed and issued PT-OP-T Assessment and Plan Start: 01/10/24 08:07 Freq: Status: Active Protocol: Document 01/10/24 09:02 [facility] (Rec: 01/10/24 16:10 [facility] [id number]) Physical Therapy Assessment Rehab Potential Rehabilitation Potential Good Evaluation Complexity Number of Personal Factors/Comorbidities 1-2 Number of Body Systems Impaired 3 Clinical Presentation at Evaluation Evolving Impairments Impairments Activity Tolerance,Edema Other Concerns Barriers to Rehabilitation smoker Goals Three Impairment difficulty walking due to weight of legs Director Business Intelligence Goal (LTG) Patient will be able to resume taking walks of at least 30 min without difficulty LTG Duration 04/09/24 Two Impairment activity tolerance Impairment lymphedema life impact scale 61% Short Term Goal (STG) Decrease lymphedema life impact scale to no greater than 40% STG Duration 02/27/24 Prison Goal (LTG) Decrease lymphedema life impact scale to no greater than 20% as measure of improved activity tolerance and quality of life LTG Duration 04/09/24 One Impairment lymphedema cyndee LE's Short Term Goal (STG) Patient will be instructed in all aspects of lymphedema self -care to include skin care, elevation, self-massage, self- bandaging/compression options, and lymphedema exercises. STG Duration 02/27/24 Prison Goal (LTG) Decrease patient?s lymphedema to a stable level (no increase or decrease greater than 1 cm over the course of 1 week), patient to be independent with all aspects of self-care for lymphedema, and will obtain appropriate compression garment for lymphedema management in the home. LTG Duration 04/09/24 Assessment Summary Assessment Patient presents to PT with function-limiting lymphedema bilateral LE's of unknown origin. He has had open wounds on both legs which are close to both being healed. He has never had treatment for his lymphedema and is now referred to PT. He has Stage III lymphedema bilateral lower legs and will benefit from PT for Complete Decongestive THerapy to include skin care, manual lymphatic drainage, lymphatic exercises and application of compression bandages with goal of reduction in size and then fitting with appropriate compression garments. Additionally I feel he is a good candidate for sequential pneumatic pump to assist him in his home management of his lymphedema. Patient will be instructed in all aspects of self-care for lymphedema. Patient is highly motivated and demonstrated good understanding of initial instruction and education today. POC was discussed and patient was in agreement. Physical Therapy Plan Frequency and Duration Frequency of Treatment 20 Duration of treatment (weeks) 12 Plan of Care Start Date 01/10/24 Plan of Care End Date 04/09/24 Therapeutic Interventions Therapeutic Interventions Lymphedema Management,Manual Therapy,Patient/Caregiver Education,Self-Care/Home Management,Soft Tissue Mobilization,Therapeutic Activities,Therapeutic Exercises Modalities Vasopneumatic Devices Next Visit Focus/Plan Next Note Type Treatment Note Next Visit Plan Assess response to compression bandaging. Provide MLD, review lymphedema exercises. Extend bandaging to upper thigh as tolerated with patient education for self bandaging. Continue patient education for self management including discussion of compression garments.
--- NOTE | 2024-01-10 16:13 | PT.OPPOC ---
Physical, Occupational & Speech Therapy At [facility] Current Diagnoses Lymphedema, not elsewhere classified (01/10/24) Difficulty in walking, not elsewhere classified (01/10/24) Visit Care Team Role Provider Type MERLYN Nunes Family Provider Non-Staff Primary Care Provider Specialty: Family Practice Address: [address] [place] [address], [place], [address] Email: Lamar Garcia PA-C Attending Provider Advanced Systems Security Analyst Referring Provider Specialty: Medical Wound Care Address: [address] [place] [address], [id number] Email: [email or web address] Plan Of Care PT-OP-T Assessment and Plan Start: 01/10/24 08:07 Freq: Status: Active Protocol: Document 01/10/24 09:02 BENEDICTO (Rec: 01/10/24 16:10 [facility] [id number]) Physical Therapy Assessment Rehab Potential Rehabilitation Potential Good Evaluation Complexity Number of Personal Factors/Comorbidities 1-2 Number of Body Systems Impaired 3 Clinical Presentation at Evaluation Evolving Impairments Impairments Activity Tolerance,Edema Other Concerns Barriers to Rehabilitation smoker Goals Three Impairment difficulty walking due to weight of legs [facility] Goal (LTG) Patient will be able to resume taking walks of at least 30 min without difficulty LTG Duration 04/09/24 Two Impairment activity tolerance Impairment lymphedema life impact scale 61% Short Term Goal (STG) Decrease lymphedema life impact scale to no greater than 40% STG Duration 02/27/24 Office Mail Clerk Goal (LTG) Decrease lymphedema life impact scale to no greater than 20% as measure of improved activity tolerance and quality of life LTG Duration 04/09/24 One Impairment lymphedema cyndee LE's Short Term Goal (STG) Patient will be instructed in all aspects of lymphedema self -care to include skin care, elevation, self-massage, self- bandaging/compression options, and lymphedema exercises. STG Duration 02/27/24 Office Mail Clerk Goal (LTG) Decrease patient?s lymphedema to a stable level (no increase or decrease greater than 1 cm over the course of 1 week), patient to be independent with all aspects of self-care for lymphedema, and will obtain appropriate compression garment for lymphedema management in the home. LTG Duration 04/09/24 Assessment Summary Assessment Patient presents to PT with function-limiting lymphedema bilateral LE's of unknown origin. He has had open wounds on both legs which are close to both being healed. He has never had treatment for his lymphedema and is now referred to PT. He has Stage III lymphedema bilateral lower legs and will benefit from PT for Complete Decongestive THerapy to include skin care, manual lymphatic drainage, lymphatic exercises and application of compression bandages with goal of reduction in size and then fitting with appropriate compression garments. Additionally I feel he is a good candidate for sequential pneumatic pump to assist him in his home management of his lymphedema. Patient will be instructed in all aspects of self-care for lymphedema. Patient is highly motivated and demonstrated good understanding of initial instruction and education today. POC was discussed and patient was in agreement. Physical Therapy Plan Frequency and Duration Frequency of Treatment 20 Duration of treatment (weeks) 12 Plan of Care Start Date 01/10/24 Plan of Care End Date 04/09/24 Therapeutic Interventions Therapeutic Interventions Lymphedema Management,Manual Therapy,Patient/Caregiver Education,Self-Care/Home Management,Soft Tissue Mobilization,Therapeutic Activities,Therapeutic Exercises Modalities Vasopneumatic Devices Next Visit Focus/Plan Next Note Type Treatment Note Next Visit Plan Assess response to compression bandaging. Provide MLD, review lymphedema exercises. Extend bandaging to upper thigh as tolerated with patient education for self bandaging. Continue patient education for self management including discussion of compression garments. Plan of Care Dates Plan of Care Start Date 01/10/24 Plan of Care End Date 04/09/24 Electronically Signed by: Concepción Wright, PT 01/10/24 3815 If you are in agreement with this Plan of Care, please return a signed and dated copy. I have reviewed this Plan of Care and certify that the skilled therapy services above are required to meet the patient?s needs. Physician Signature Date Printed Name and Credentials Clinical Instructor Signature Printed Name and Credentials
--- NOTE | 2024-01-11 11:01 | PT.OTN ---
Current Diagnoses Lymphedema, not elsewhere classified (01/11/24) Difficulty in walking, not elsewhere classified (01/11/24) Physical Therapy Treatment Note PT-OP-A Visit Information Start: 01/10/24 08:07 Freq: Status: Active Protocol: Document 01/11/24 09:15 SAK (Rec: 01/11/24 09:37 [facility] [id number]) Out-Patient Physical Therapy Visit Information Visit Information Visit Type Treatment Note Visit Start Time 09:03 Visit Stop Time 10:38 Visit Number 2 Evaluation Information Evaluation Date 01/10/24 PT-OP-B Current Condition Start: 01/10/24 08:07 Freq: Status: Active Protocol: Document 01/10/24 09:02 SAK (Rec: 01/10/24 09:56 [facility] [id number]) Current Condition History of Current Condition Onset Date 2 years Current Complaints cyndee LE swelling knees down History of Current Condition Legs gradual onset of swelling , no known reason. States his legs were already a bit swollen and then he bumped his leg on bed large wound opened up which turned into massive wounds on legs left greater than right. Right side currently closed up, wound on left leg almost completely closed. No previous treatment for lymphedema. Spends a lot of time sitting. 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 Has gained a lot of weight past 5 years after shoulder injury with 2 surgeries. Prior Treatments and Tests current wound care using Coban wraps 1x/wk due to LE wounds Treatment Goals Patient/Caregiver Goals decrease edema, know how to self manage Prior Functional Status Baseline Function- ADL's Independent Baseline Function- Mobility Independent Baseline Function- Gait no limitations Baseline Function- Work/School worked physical job Baseline Function- Recreation/Hobbies no limitations Current Functional Impairments (Reported) Functional Limitations- ADL's legs heavy, takes more time Functional Limitations- Mobility/Gait limited ability to walk due to heavy legs Functional Limitations- Work/School sits for job Functional Limitations- Recreation/ limited due to heaviness of Hobbies legs Personal Factors Other Personal Factors That May Effect smoker Therapy/Recovery PT-OP-C Subjective Start: 01/10/24 08:07 Freq: Status: Active Protocol: Document 01/10/24 09:02 SAK (Rec: 01/10/24 16:10 [facility] [id number]) Patient Questionnaires Lymphedema Life Impact Score Lymphedema Score 61% OP-PT Pain Assessment Pain Assessment Grid Paper Pain Assessment Grid Completed Yes Location cyndee LE's Intensity 3 PT-OP-J Posture/Palpation/Skin Start: 01/10/24 08:07 Freq: Status: Active Protocol: Document 01/10/24 09:02 SAK (Rec: 01/10/24 16:10 [facility] [id number]) Palpation Assessment Location cyndee LE's Palpation Findings Edema Palpation Details no increased warmth Skin Assessment Edema Assessment cyndee lower legs Edema Appearance Discolored,Puffy Subjective Edema Description Pain Comments dry, scaly skin especially on toes, heels. PT-OP-K Range of Motion Start: 01/10/24 08:07 Freq: Status: Active Protocol: Document 01/10/24 09:02 SAK (Rec: 01/10/24 16:10 [facility] [id number]) Hip Goniometric Range of Motion Hip cyndee Hip ROM WFL Yes Knee Goniometric Range of Motion Knee cyndee Knee ROM WFL Yes Ankle and Foot Goniometric Range of Motion Ankle and Foot cyndee Dorsiflexion with Knee Flexed 5 Dorsiflexion with Knee Extended 0 PT-OP-N Lymphedema Start: 01/10/24 08:07 Freq: Status: Active Protocol: Document 01/11/24 09:15 SAK (Rec: 01/11/24 09:37 [facility] [id number]) Lymphedema Measurements Lower Extremity Circumference Measurements Right Affected MT Heads 29.7 cm Mid-foot 29.4 cm Medial Malleolus 40.3 cm 10 cm From Medial Malleolus 43.8 cm 20 cm From Medial Malleolus 46.9 cm 30 cm From Medial Malleolus 53.4 cm 40 cm From Medial Malleolus 56 cm 50 cm From Medial Malleolus 63.6 cm 60 cm From Medial Malleolus 71.9 cm 70 cm From Medial Malleolus 79.5 cm Knee Joint 59.5 cm Left Affected MT Heads 29.8 cm Mid-foot 29.8 cm Medial Malleolus 42.8 cm 10 cm From Medial Malleolus 47.5 cm 20 cm From Medial Malleolus 50.6 cm 30 cm From Medial Malleolus 53.7 cm 40 cm From Medial Malleolus 53.3 cm 50 cm From Medial Malleolus 59 cm 60 cm From Medial Malleolus 70.8 cm 70 cm From Medial Malleolus 80.2 cm Knee Joint 59 cm PT-OP-Q Treatments Start: 01/10/24 08:07 Freq: Status: Active Protocol: Document 01/11/24 09:15 [facility] (Rec: 01/11/24 11:01 [facility] [id number]) Cardio Equipment Recumbent Stepper (Sci-Fit) Duration (Minutes) 7 Resistance 1 Seat Position 14 Other to facilitate lymphatic flow s /p MLD and compression bandaging Lymphedema Treatment Manual Lymphatic Drainage Location for cyndee LE lymphedema Comments AIA pathways Lymphedema Wrapping Body Location cyndee lower legs toes to thighs Materials Size G Tricofix, 4 rolls ARtiflex, 6 rolls Comprilan 6 8x2, 10x2, 12 with Komprex kidneys right ankles and doubled wright foam left ankles Patient Education Other continue patient education for self care emphasis self MLD and self bandaging PT-OP-T Assessment and Plan Start: 01/10/24 08:07 Freq: Status: Active Protocol: Document 01/11/24 09:15 [facility] (Rec: 01/11/24 09:37 [facility] [id number]) Physical Therapy Assessment Impairments Impairments Activity Tolerance,Edema Goals Three Impairment difficulty walking due to weight of legs Long-Term Goal (LTG) Patient will be able to resume taking walks of at least 30 min without difficulty LTG Duration 04/09/24 Two Impairment activity tolerance Impairment lymphedema life impact scale 61% Short Term Goal (STG) Decrease lymphedema life impact scale to no greater than 40% STG Duration 02/27/24 Long-Term Goal (LTG) Decrease lymphedema life impact scale to no greater than 20% as measure of improved activity tolerance and quality of life LTG Duration 04/09/24 One Impairment lymphedema cnydee LE's Short Term Goal (STG) Patient will be instructed in all aspects of lymphedema self -care to include skin care, elevation, self-massage, self- bandaging/compression options, and lymphedema exercises. STG Duration 02/27/24 Long-Term Goal (LTG) Decrease patient?s lymphedema to a stable level (no increase or decrease greater than 1 cm over the course of 1 week), patient to be independent with all aspects of self-care for lymphedema, and will obtain appropriate compression garment for lymphedema management in the home. LTG Duration 04/09/24 Assessment Summary Assessment Good decrease in circumferential measurements bilateral LE's. Extended bandaging to bilateral thighs today with continued patient education regarding self massage and bandaging. Performed MLD cyndee LE's with application of Cetaphil for skin care cyndee LE's. Patient demonstrating good understanding of self-care. Physical Therapy Plan Frequency and Duration Frequency of Treatment 20 Duration of treatment (weeks) 12 Plan of Care Start Date 01/10/24 Plan of Care End Date 04/09/24 Therapeutic Interventions Therapeutic Interventions Lymphedema Management,Manual Therapy,Patient/Caregiver Education,Self-Care/Home Management,Soft Tissue Mobilization,Therapeutic Activities,Therapeutic Exercises Modalities Vasopneumatic Devices Next Visit Focus/Plan Next Note Type Treatment Note Next Visit Plan Continue CDT for bilateral LE lymphedema.
--- NOTE | 2024-01-17 15:33 | PT.OTN ---
Current Diagnoses Lymphedema, not elsewhere classified (01/17/24) Difficulty in walking, not elsewhere classified (01/17/24) Physical Therapy Treatment Note PT-OP-A Visit Information Start: 01/10/24 08:07 Freq: Status: Active Protocol: Document 01/17/24 09:03 SAK (Rec: 01/17/24 09:32 SAK [id number]) Out-Patient Physical Therapy Visit Information Visit Information Visit Type Treatment Note Visit Start Time 09:03 Visit Stop Time 10:30 Visit Number 3 Evaluation Information Evaluation Date 01/10/24 PT-OP-B Current Condition Start: 01/10/24 08:07 Freq: Status: Active Protocol: Document 01/17/24 09:03 SAK (Rec: 01/17/24 09:32 SAK [id number]) Current Condition History of Current Condition Onset Date 2 years Current Complaints cyndee LE swelling knees down History of Current Condition Legs gradual onset of swelling , no known reason. States his legs were already a bit swollen and then he bumped his leg on bed large wound opened up which turned into massive wounds on legs left greater than right. Right side currently closed up, wound on left leg almost completely closed. No previous treatment for lymphedema. Spends a lot of time sitting. 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 Has gained a lot of weight past 5 years after shoulder injury with 2 surgeries. Prior Treatments and Tests current wound care using Coban wraps 1x/wk due to LE wounds Treatment Goals Patient/Caregiver Goals decrease edema, know how to self manage Prior Functional Status Baseline Function- ADL's Independent Baseline Function- Mobility Independent Baseline Function- Gait no limitations Baseline Function- Work/School worked physical job Baseline Function- Recreation/Hobbies no limitations PT-OP-C Subjective Start: 01/10/24 08:07 Freq: Status: Active Protocol: Document 01/17/24 09:03 SAK (Rec: 01/17/24 09:32 [facility] [id number]) OP-PT Subjective Patient Comments Patient Comments Has been bandaging all week during day, not at night. Feels helpful. Saw wound care yesterday, toes, feet, and ankles looking really good. Toes, ankles and feet not as good today due to being put in Coban wraps, no toe or distal foot wrap probably going to see wound care for one more week. PT-OP-J Posture/Palpation/Skin Start: 01/10/24 08:07 Freq: Status: Active Protocol: Document 01/10/24 09:02 [facility] (Rec: 01/10/24 16:10 [facility] [id number]) Palpation Assessment Location cyndee LE's Palpation Findings Edema Palpation Details no increased warmth Skin Assessment Edema Assessment cyndee lower legs Edema Appearance Discolored,Puffy Subjective Edema Description Pain Comments dry, scaly skin especially on toes, heels. PT-OP-K Range of Motion Start: 01/10/24 08:07 Freq: Status: Active Protocol: Document 01/10/24 09:02 [facility] (Rec: 01/10/24 16:10 [facility] [id number]) Hip Goniometric Range of Motion Hip cyndee Hip ROM WFL Yes Knee Goniometric Range of Motion Knee cyndee Knee ROM WFL Yes Ankle and Foot Goniometric Range of Motion Ankle and Foot cyndee Dorsiflexion with Knee Flexed 5 Dorsiflexion with Knee Extended 0 PT-OP-N Lymphedema Start: 01/10/24 08:07 Freq: Status: Active Protocol: Document 01/17/24 09:03 [facility] (Rec: 01/17/24 09:32 [facility] [id number]) Lymphedema Measurements Lower Extremity Circumference Measurements Right Affected MT Heads 29.3 cm Mid-foot 29.7 cm Medial Malleolus 39.7 cm 10 cm From Medial Malleolus 39.7 cm 20 cm From Medial Malleolus 46.6 cm 30 cm From Medial Malleolus 53.9 cm 40 cm From Medial Malleolus 55.8 cm 50 cm From Medial Malleolus 60.3 cm 60 cm From Medial Malleolus 70.9 cm 70 cm From Medial Malleolus 82 cm Knee Joint 60.3 cm Left Affected MT Heads 30.6 cm Mid-foot 29.8 cm Medial Malleolus 42 cm 10 cm From Medial Malleolus 45.8 cm 20 cm From Medial Malleolus 50.7 cm 30 cm From Medial Malleolus 54.4 cm 40 cm From Medial Malleolus 54.3 cm 50 cm From Medial Malleolus 61.4 cm 60 cm From Medial Malleolus 71.5 cm 70 cm From Medial Malleolus 80.2 cm 80 cm From Medial Malleolus 29.3 cm Knee Joint 61.4 cm PT-OP-Q Treatments Start: 01/10/24 08:07 Freq: Status: Active Protocol: Document 01/17/24 09:03 [facility] (Rec: 01/17/24 15:33 [facility] [id number]) Cardio Equipment Recumbent Stepper (Sci-Fit) Duration (Minutes) 10 Resistance 1 Seat Position 14 Other to facilitate lymphatic flow s /p MLD and compression bandaging Lymphedema Treatment Manual Lymphatic Drainage Location for cyndee LE lymphedema Comments AIA pathways Lymphedema Wrapping Body Location cyndee lower legs toes to thighs Materials Size G Tricofix, 4 rolls ARtiflex, 6 rolls Comprilan 6 8x2, 10x2, 12 with Komprex kidneys right ankles and doubled wright foam left ankles Patient Education Compression Garments further discussion options Self Manual Lymphatic Drainage reviewed PT-OP-T Assessment and Plan Start: 01/10/24 08:07 Freq: Status: Active Protocol: Document 01/17/24 09:03 [facility] (Rec: 01/17/24 09:32 [facility] [id number]) Physical Therapy Assessment Impairments Impairments Activity Tolerance,Edema Goals Three Impairment difficulty walking due to weight of legs Residential Goal (LTG) Patient will be able to resume taking walks of at least 30 min without difficulty LTG Duration 04/09/24 Two Impairment activity tolerance Impairment lymphedema life impact scale 61% Short Term Goal (STG) Decrease lymphedema life impact scale to no greater than 40% STG Duration 02/27/24 Residential Goal (LTG) Decrease lymphedema life impact scale to no greater than 20% as measure of improved activity tolerance and quality of life LTG Duration 04/09/24 One Impairment lymphedema cyndee LE's Short Term Goal (STG) Patient will be instructed in all aspects of lymphedema self -care to include skin care, elevation, self-massage, self- bandaging/compression options, and lymphedema exercises. STG Duration 02/27/24 Vessel Welder Goal (LTG) Decrease patient?s lymphedema to a stable level (no increase or decrease greater than 1 cm over the course of 1 week), patient to be independent with all aspects of self-care for lymphedema, and will obtain appropriate compression garment for lymphedema management in the home. LTG Duration 04/09/24 Progress Towards Goals Progress Towards Goals Progressing Toward Goals Assessment Summary Assessment Patient compliant to self- bandaging with assistance of his . Reporting good dec in size, though not as good today due to wound care yesterday with application Coban system instead of compression bandaging, no toes bandaged. Physical Therapy Plan Frequency and Duration Frequency of Treatment 20 Duration of treatment (weeks) 12 Plan of Care Start Date 01/10/24 Plan of Care End Date 04/09/24 Therapeutic Interventions Therapeutic Interventions Lymphedema Management,Manual Therapy,Patient/Caregiver Education,Self-Care/Home Management,Soft Tissue Mobilization,Therapeutic Activities,Therapeutic Exercises Modalities Vasopneumatic Devices Next Visit Focus/Plan Next Note Type Treatment Note Next Visit Plan Continue CDT for bilateral LE lymphedema.
--- NOTE | 2024-01-19 16:17 | PT.OTN ---
Current Diagnoses Lymphedema, not elsewhere classified (01/19/24) Difficulty in walking, not elsewhere classified (01/19/24) Physical Therapy Treatment Note PT-OP-A Visit Information Start: 01/10/24 08:07 Freq: Status: Active Protocol: Document 01/19/24 14:30 SAK (Rec: 01/19/24 14:37 [facility] [id number]) Out-Patient Physical Therapy Visit Information Visit Information Visit Type Treatment Note Visit Start Time 14:31 Visit Stop Time 16:05 Visit Number 4 Evaluation Information Evaluation Date 01/10/24 PT-OP-B Current Condition Start: 01/10/24 08:07 Freq: Status: Active Protocol: Document 01/19/24 14:30 SAK (Rec: 01/19/24 14:37 [facility] [id number]) Current Condition History of Current Condition Onset Date 2 years Current Complaints cyndee LE swelling knees down History of Current Condition Legs gradual onset of swelling , no known reason. States his legs were already a bit swollen and then he bumped his leg on bed large wound opened up which turned into massive wounds on legs left greater than right. Right side currently closed up, wound on left leg almost completely closed. No previous treatment for lymphedema. Spends a lot of time sitting. 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 Has gained a lot of weight past 5 years after shoulder injury with 2 surgeries. Prior Treatments and Tests current wound care using Coban wraps 1x/wk due to LE wounds Treatment Goals Patient/Caregiver Goals decrease edema, know how to self manage Prior Functional Status Baseline Function- ADL's Independent Baseline Function- Mobility Independent Baseline Function- Gait no limitations Baseline Function- Work/School worked physical job Baseline Function- Recreation/Hobbies no limitations PT-OP-C Subjective Start: 01/10/24 08:07 Freq: Status: Active Protocol: Document 01/17/24 09:03 SAK (Rec: 01/17/24 09:32 [facility] [id number]) OP-PT Subjective Patient Comments Patient Comments Has been bandaging all week during day, not at night. Feels helpful. Saw wound care yesterday, toes, feet, and ankles looking really good. Toes, ankles and feet not as good today due to being put in Coban wraps, no toe or distal foot wrap probably going to see wound care for one more week. PT-OP-J Posture/Palpation/Skin Start: 01/10/24 08:07 Freq: Status: Active Protocol: Document 01/10/24 09:02 SAK (Rec: 01/10/24 16:10 [facility] [id number]) Palpation Assessment Location cyndee LE's Palpation Findings Edema Palpation Details no increased warmth Skin Assessment Edema Assessment cyndee lower legs Edema Appearance Discolored,Puffy Subjective Edema Description Pain Comments dry, scaly skin especially on toes, heels. PT-OP-K Range of Motion Start: 01/10/24 08:07 Freq: Status: Active Protocol: Document 01/10/24 09:02 [facility] (Rec: 01/10/24 16:10 [facility] [id number]) Hip Goniometric Range of Motion Hip cyndee Hip ROM WFL Yes Knee Goniometric Range of Motion Knee cyndee Knee ROM WFL Yes Ankle and Foot Goniometric Range of Motion Ankle and Foot cyndee Dorsiflexion with Knee Flexed 5 Dorsiflexion with Knee Extended 0 PT-OP-N Lymphedema Start: 01/10/24 08:07 Freq: Status: Active Protocol: Document 01/19/24 14:30 SAK (Rec: 01/19/24 16:13 [facility] [id number]) Lymphedema Measurements Lower Extremity Circumference Measurements Right Affected MT Heads 30 cm Mid-foot 29.5 cm Medial Malleolus 39.8 cm 10 cm From Medial Malleolus 38.8 cm 20 cm From Medial Malleolus 47 cm 30 cm From Medial Malleolus 54.5 cm 40 cm From Medial Malleolus 53.8 cm 50 cm From Medial Malleolus 61 cm 60 cm From Medial Malleolus 69.5 cm 70 cm From Medial Malleolus 82 cm Knee Joint 61 cm Left Affected MT Heads 29.2 cm Mid-foot 29.3 cm Medial Malleolus 40.2 cm 10 cm From Medial Malleolus 42.8 cm 20 cm From Medial Malleolus 48.4 cm 30 cm From Medial Malleolus 53.8 cm 40 cm From Medial Malleolus 51.2 cm 50 cm From Medial Malleolus 58.8 cm 60 cm From Medial Malleolus 70.5 cm 70 cm From Medial Malleolus 81.8 cm 80 cm From Medial Malleolus 91 cm Knee Joint 58.8 cm PT-OP-Q Treatments Start: 01/10/24 08:07 Freq: Status: Active Protocol: Document 01/19/24 14:30 [facility] (Rec: 01/19/24 14:37 [facility] [id number]) Lymphedema Treatment Manual Lymphatic Drainage Location for cyndee LE lymphedema Comments AIA pathways Lymphedema Wrapping Body Location cyndee lower legs toes to thighs Materials Size G Tricofix, 4 rolls ARtiflex, 6 rolls Comprilan 6 8x2, 10x2, 12 with Komprex kidneys right ankles and doubled wright foam left ankles PT-OP-T Assessment and Plan Start: 01/10/24 08:07 Freq: Status: Active Protocol: Document 01/19/24 14:30 [facility] (Rec: 01/19/24 14:37 [facility] [id number]) Physical Therapy Assessment Impairments Impairments Activity Tolerance,Edema Goals Three Impairment difficulty walking due to weight of legs Regional Controller Goal (LTG) Patient will be able to resume taking walks of at least 30 min without difficulty LTG Duration 04/09/24 Two Impairment activity tolerance Impairment lymphedema life impact scale 61% Short Term Goal (STG) Decrease lymphedema life impact scale to no greater than 40% STG Duration 02/27/24 Regional Controller Goal (LTG) Decrease lymphedema life impact scale to no greater than 20% as measure of improved activity tolerance and quality of life LTG Duration 04/09/24 One Impairment lymphedema cyndee LE's Short Term Goal (STG) Patient will be instructed in all aspects of lymphedema self -care to include skin care, elevation, self-massage, self- bandaging/compression options, and lymphedema exercises. STG Duration 02/27/24 Group Home Goal (LTG) Decrease patient?s lymphedema to a stable level (no increase or decrease greater than 1 cm over the course of 1 week), patient to be independent with all aspects of self-care for lymphedema, and will obtain appropriate compression garment for lymphedema management in the home. LTG Duration 04/09/24 Progress Towards Goals Progress Towards Goals Progressing Toward Goals Assessment Summary Assessment Continue to improve, Has appointment with [facility] on Tuesday for measuring of legs. Compliant to home program, reports losing weight as well. Pleased with the progress in his legs. Physical Therapy Plan Frequency and Duration Frequency of Treatment 20 Duration of treatment (weeks) 12 Plan of Care Start Date 01/10/24 Plan of Care End Date 05/13/24 Therapeutic Interventions Therapeutic Interventions Lymphedema Management,Manual Therapy,Patient/Caregiver Education,Self-Care/Home Management,Soft Tissue Mobilization,Therapeutic Activities,Therapeutic Exercises Modalities Vasopneumatic Devices Next Visit Focus/Plan Next Note Type Treatment Note Next Visit Plan Continue CDT for bilateral LE lymphedema.
--- NOTE | 2024-01-19 16:33 | PT.OTN ---
Current Diagnoses Lymphedema, not elsewhere classified (01/19/24) Difficulty in walking, not elsewhere classified (01/19/24) Physical Therapy Treatment Note PT-OP-A Visit Information Start: 01/10/24 08:07 Freq: Status: Active Protocol: Document 01/19/24 14:30 SAK (Rec: 01/19/24 14:37 [facility] [id number]) Out-Patient Physical Therapy Visit Information Visit Information Visit Type Treatment Note Visit Start Time 14:31 Visit Stop Time 16:05 Visit Number 4 Evaluation Information Evaluation Date 01/10/24 PT-OP-B Current Condition Start: 01/10/24 08:07 Freq: Status: Active Protocol: Document 01/19/24 14:30 SAK (Rec: 01/19/24 14:37 [facility] [id number]) Current Condition History of Current Condition Onset Date 2 years Current Complaints cyndee LE swelling knees down History of Current Condition Legs gradual onset of swelling , no known reason. States his legs were already a bit swollen and then he bumped his leg on bed large wound opened up which turned into massive wounds on legs left greater than right. Right side currently closed up, wound on left leg almost completely closed. No previous treatment for lymphedema. Spends a lot of time sitting. 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 Has gained a lot of weight past 5 years after shoulder injury with 2 surgeries. Prior Treatments and Tests current wound care using Coban wraps 1x/wk due to LE wounds Treatment Goals Patient/Caregiver Goals decrease edema, know how to self manage Prior Functional Status Baseline Function- ADL's Independent Baseline Function- Mobility Independent Baseline Function- Gait no limitations Baseline Function- Work/School worked physical job Baseline Function- Recreation/Hobbies no limitations PT-OP-C Subjective Start: 01/10/24 08:07 Freq: Status: Active Protocol: Document 01/19/24 14:30 SAK (Rec: 01/19/24 16:26 [facility] [id number]) OP-PT Subjective Patient Comments Patient Comments Patient reports he was able to leave bandaging on since last session, pleased with progress, compliant to all aspects of self care for lymphedema as instructed with the help of his . Has made an appointment with [facility] for measurement for compression stockings. Patient Reported Progress Improving PT-OP-J Posture/Palpation/Skin Start: 01/10/24 08:07 Freq: Status: Active Protocol: Document 01/10/24 09:02 SAK (Rec: 01/10/24 16:10 [facility] [id number]) Palpation Assessment Location cyndee LE's Palpation Findings Edema Palpation Details no increased warmth Skin Assessment Edema Assessment cyndee lower legs Edema Appearance Discolored,Puffy Subjective Edema Description Pain Comments dry, scaly skin especially on toes, heels. PT-OP-K Range of Motion Start: 01/10/24 08:07 Freq: Status: Active Protocol: Document 01/10/24 09:02 [facility] (Rec: 01/10/24 16:10 [facility] [id number]) Hip Goniometric Range of Motion Hip cyndee Hip ROM WFL Yes Knee Goniometric Range of Motion Knee cyndee Knee ROM WFL Yes Ankle and Foot Goniometric Range of Motion Ankle and Foot cyndee Dorsiflexion with Knee Flexed 5 Dorsiflexion with Knee Extended 0 PT-OP-N Lymphedema Start: 01/10/24 08:07 Freq: Status: Active Protocol: Document 01/19/24 14:30 [facility] (Rec: 01/19/24 16:13 [facility] [id number]) Lymphedema Measurements Lower Extremity Circumference Measurements Right Affected MT Heads 30 cm Mid-foot 29.5 cm Medial Malleolus 39.8 cm 10 cm From Medial Malleolus 38.8 cm 20 cm From Medial Malleolus 47 cm 30 cm From Medial Malleolus 54.5 cm 40 cm From Medial Malleolus 53.8 cm 50 cm From Medial Malleolus 61 cm 60 cm From Medial Malleolus 69.5 cm 70 cm From Medial Malleolus 82 cm Knee Joint 61 cm Left Affected MT Heads 29.2 cm Mid-foot 29.3 cm Medial Malleolus 40.2 cm 10 cm From Medial Malleolus 42.8 cm 20 cm From Medial Malleolus 48.4 cm 30 cm From Medial Malleolus 53.8 cm 40 cm From Medial Malleolus 51.2 cm 50 cm From Medial Malleolus 58.8 cm 60 cm From Medial Malleolus 70.5 cm 70 cm From Medial Malleolus 81.8 cm Knee Joint 58.8 cm PT-OP-Q Treatments Start: 01/10/24 08:07 Freq: Status: Active Protocol: Document 01/19/24 14:30 [facility] (Rec: 01/19/24 14:37 [facility] [id number]) Cardio Equipment Recumbent Stepper (Sci-Fit) Duration (Minutes) 10 Resistance 1 Seat Position 14 Other to facilitate lymphatic flow s /p MLD and compression bandaging Lymphedema Treatment Manual Lymphatic Drainage Location for cyndee LE lymphedema Comments AIA pathways Lymphedema Wrapping Body Location cyndee lower legs toes to thighs Materials Size G Tricofix, 4 rolls ARtiflex, 6 rolls Comprilan 6 8x2, 10x2, 12 with Komprex kidneys right ankles and doubled wright foam left ankles Other application of Cetaphil lotion cyndee LE's Sequential Lymphedema Exercises Comments Sci-Fit as above, reviewed HEP Compression Garment Assessment Compression Garment Assessment Details pt to be measured next sweek Patient Education Other Instruction in donning aid options. Recommend thigh high 30-40 mm Hg compression for cyndee LE's, flat knit custom garments. 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 Goal (LTG) Patient will be able to resume taking walks of at least 30 min without difficulty LTG Duration 04/09/24 Two Impairment activity tolerance Impairment lymphedema life impact scale 61% Short Term Goal (STG) Decrease lymphedema life impact scale to no greater than 40% STG Duration 02/27/24 Group Home Goal (LTG) Decrease lymphedema life impact scale to no greater than 20% as measure of improved activity tolerance and quality of life LTG Duration 04/09/24 One Impairment lymphedema cyndee LE's Short Term Goal (STG) Patient will be instructed in all aspects of lymphedema self -care to include skin care, elevation, self-massage, self- bandaging/compression options, and lymphedema exercises. STG Duration 02/27/24 Group Home Goal (LTG) Decrease patient?s lymphedema to a stable level (no increase or decrease greater than 1 cm over the course of 1 week), patient to be independent with all aspects of self-care for lymphedema, and will obtain appropriate compression garment for lymphedema management in the home. LTG Duration 04/09/24 Progress Towards Goals Progress Towards Goals Progressing Toward Goals Assessment Summary Assessment Continue to improve circumferential measurements mostly decreased. Has appointment with [facility] on Tuesday for measuring of legs. Compliant to all aspects of lymphedema care with the assistance of his Recommend custom flat knit 30- 40 mm Hg thigh high compression stockings Pleased with the progress in his legs. Physical Therapy Plan Frequency and Duration Frequency of Treatment 20 Duration of treatment (weeks) 12 Plan of Care Start Date 01/10/24 Plan of Care End Date 04/09/24 Therapeutic Interventions Therapeutic Interventions Lymphedema Management,Manual Therapy,Patient/Caregiver Education,Self-Care/Home Management,Soft Tissue Mobilization,Therapeutic Activities,Therapeutic Exercises Modalities Vasopneumatic Devices Next Visit Focus/Plan Next Note Type Treatment Note Next Visit Plan Continue CDT for bilateral LE lymphedema.
--- NOTE | 2024-01-24 10:01 | PT.OTN ---
Current Diagnoses Lymphedema, not elsewhere classified (01/24/24) Difficulty in walking, not elsewhere classified (01/24/24) Physical Therapy Treatment Note PT-OP-A Visit Information Start: 01/10/24 08:07 Freq: Status: Active Protocol: Document 01/24/24 09:02 [facility] (Rec: 01/24/24 09:32 [facility] [id number]) Out-Patient Physical Therapy Visit Information Visit Information Visit Type Treatment Note Visit Start Time 09:02 Visit Stop Time 10:32 Visit Number 5 Evaluation Information Evaluation Date 01/10/24 PT-OP-B Current Condition Start: 01/10/24 08:07 Freq: Status: Active Protocol: Document 01/24/24 09:02 [facility] (Rec: 01/24/24 09:32 [facility] [id number]) Current Condition History of Current Condition Onset Date 2 years Current Complaints cyndee LE swelling knees down History of Current Condition Legs gradual onset of swelling , no known reason. States his legs were already a bit swollen and then he bumped his leg on bed large wound opened up which turned into massive wounds on legs left greater than right. Right side currently closed up, wound on left leg almost completely closed. No previous treatment for lymphedema. Spends a lot of time sitting. 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 Has gained a lot of weight past 5 years after shoulder injury with 2 surgeries. Prior Treatments and Tests current wound care using Coban wraps 1x/wk due to LE wounds Treatment Goals Patient/Caregiver Goals decrease edema, know how to self manage Prior Functional Status Baseline Function- ADL's Independent Baseline Function- Mobility Independent Baseline Function- Gait no limitations Baseline Function- Work/School worked physical job Baseline Function- Recreation/Hobbies no limitations PT-OP-C Subjective Start: 01/10/24 08:07 Freq: Status: Active Protocol: Document 01/24/24 09:02 [facility] (Rec: 01/24/24 09:32 [facility] [id number]) OP-PT Subjective Patient Comments Patient Comments Saw wound care yesterday, has 2 more weeks scheduled. Getting measured for compression today. Not wearing compression; just took off 5 min ago, will bandage after measuring. Has ordred compression shorts and new bandages should be here tomorrow. PT-OP-J Posture/Palpation/Skin Start: 01/10/24 08:07 Freq: Status: Active Protocol: Document 01/10/24 09:02 [facility] (Rec: 01/10/24 16:10 [facility] [id number]) Palpation Assessment Location cyndee LE's Palpation Findings Edema Palpation Details no increased warmth Skin Assessment Edema Assessment cyndee lower legs Edema Appearance Discolored,Puffy Subjective Edema Description Pain Comments dry, scaly skin especially on toes, heels. PT-OP-K Range of Motion Start: 01/10/24 08:07 Freq: Status: Active Protocol: Document 01/10/24 09:02 [facility] (Rec: 01/10/24 16:10 [facility] [id number]) Hip Goniometric Range of Motion Hip cyndee Hip ROM WFL Yes Knee Goniometric Range of Motion Knee cyndee Knee ROM WFL Yes Ankle and Foot Goniometric Range of Motion Ankle and Foot cyndee Dorsiflexion with Knee Flexed 5 Dorsiflexion with Knee Extended 0 PT-OP-N Lymphedema Start: 01/10/24 08:07 Freq: Status: Active Protocol: Document 01/24/24 09:02 [facility] (Rec: 01/24/24 09:32 [facility] [id number]) Lymphedema Measurements Lower Extremity Circumference Measurements Right Affected MT Heads 29.8 cm Mid-foot 30.1 cm Medial Malleolus 38.5 cm 10 cm From Medial Malleolus 39.8 cm 20 cm From Medial Malleolus 45.9 cm 30 cm From Medial Malleolus 51.2 cm 40 cm From Medial Malleolus 55.3 cm 50 cm From Medial Malleolus 69 cm 60 cm From Medial Malleolus 71.5 cm 70 cm From Medial Malleolus 83 cm Knee Joint 69 cm Left Affected MT Heads 29.2 cm Mid-foot 30.5 cm Medial Malleolus 39.8 cm 10 cm From Medial Malleolus 43 cm 20 cm From Medial Malleolus 47.7 cm 30 cm From Medial Malleolus 53 cm 40 cm From Medial Malleolus 52.6 cm 50 cm From Medial Malleolus 59.8 cm 60 cm From Medial Malleolus 73.1 cm 70 cm From Medial Malleolus 81.9 cm Knee Joint 59.8 cm PT-OP-Q Treatments Start: 01/10/24 08:07 Freq: Status: Active Protocol: Document 01/24/24 09:02 [facility] (Rec: 01/24/24 10:00 [facility] [id number]) Cardio Equipment Recumbent Stepper (Sci-Fit) Other held;no compression bandaging on today due to being measured for compressio Lymphedema Treatment Manual Lymphatic Drainage Location for cyndee LE lymphedema Comments [facility] Lymphedema Wrapping Other held due to being measured for compression garment immediately after PT appt today Application of Cetaphil lotion cyndee PRATHERs Compression Garment Assessment Compression Garment Assessment Details being measured today at [facility] Other Other circumferntial measurements cyndee GARCIA's PT-OP-T Assessment and Plan Start: 01/10/24 08:07 Freq: Status: Active Protocol: Document 01/24/24 09:02 [facility] (Rec: 01/24/24 09:32 [facility] [id number]) Physical Therapy Assessment Goals Three Impairment difficulty walking due to weight of legs Prison Goal (LTG) Patient will be able to resume taking walks of at least 30 min without difficulty LTG Duration 04/09/24 Two Impairment activity tolerance Impairment lymphedema life impact scale 61% Short Term Goal (STG) Decrease lymphedema life impact scale to no greater than 40% STG Duration 02/27/24 Welcome Center Attendant Goal (LTG) Decrease lymphedema life impact scale to no greater than 20% as measure of improved activity tolerance and quality of life LTG Duration 04/09/24 One Impairment lymphedema cyndee LE's Short Term Goal (STG) Patient will be instructed in all aspects of lymphedema self -care to include skin care, elevation, self-massage, self- bandaging/compression options, and lymphedema exercises. STG Duration 02/27/24 Welcome Center Attendant Goal (LTG) Decrease patient?s lymphedema to a stable level (no increase or decrease greater than 1 cm over the course of 1 week), patient to be independent with all aspects of self-care for lymphedema, and will obtain appropriate compression garment for lymphedema management in the home. LTG Duration 04/09/24 Assessment Summary Assessment circumferential measurements variable today, some dec, some inc. Patient has appointment to be measured today for compression garment, doesn't want to continue to bandage. He is highly compliant to self care for lymphedema management and has had good reduction though reduction slowing. Improved condition of skin, seeing wound care for anticipated 2 further weeks if things continue to go well. Feel patient will benefit from use of a sequential pneumatic pump for self management. Physical Therapy Plan Frequency and Duration Frequency of Treatment 20 Duration of treatment (weeks) 12 Plan of Care Start Date 01/10/24 Plan of Care End Date 04/09/24 Therapeutic Interventions Therapeutic Interventions Lymphedema Management,Manual Therapy,Patient/Caregiver Education,Self-Care/Home Management,Soft Tissue Mobilization,Therapeutic Activities,Therapeutic Exercises Modalities Vasopneumatic Devices Next Visit Focus/Plan Next Note Type Treatment Note Next Visit Plan Patient to be measured for compression garment today at [facility]. Continue CDT for bilateral LE lymphedema, moving toward maintenance phase of lymphedema management . After 30 days of conservative therapy plan to request order for sequential pneumatic pump to assist with self management of his lymphedema.
--- NOTE | 2024-01-26 16:15 | PT.OTN ---
Current Diagnoses Lymphedema, not elsewhere classified (01/26/24) Difficulty in walking, not elsewhere classified (01/26/24) Physical Therapy Treatment Note PT-OP-A Visit Information Start: 01/10/24 08:07 Freq: Status: Active Protocol: Document 01/26/24 14:29 [facility] (Rec: 01/26/24 15:12 [facility] [id number]) Out-Patient Physical Therapy Visit Information Visit Information Visit Type Treatment Note Visit Note Saw Jaclyn at [facility] for consult regarding compression stockings, ordered compression shorts and wrong size came. Ordered compression bandaging supplies. Visit Start Time 14:29 Visit Stop Time 16:02 Visit Number 6 Evaluation Information Evaluation Date 01/10/24 PT-OP-B Current Condition Start: 01/10/24 08:07 Freq: Status: Active Protocol: Document 01/24/24 09:02 [facility] (Rec: 01/24/24 09:32 [facility] [id number]) Current Condition History of Current Condition Onset Date 2 years Current Complaints cyndee LE swelling knees down History of Current Condition Legs gradual onset of swelling , no known reason. States his legs were already a bit swollen and then he bumped his leg on bed large wound opened up which turned into massive wounds on legs left greater than right. Right side currently closed up, wound on left leg almost completely closed. No previous treatment for lymphedema. Spends a lot of time sitting. 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 Has gained a lot of weight past 5 years after shoulder injury with 2 surgeries. Prior Treatments and Tests current wound care using Coban wraps 1x/wk due to LE wounds Treatment Goals Patient/Caregiver Goals decrease edema, know how to self manage Prior Functional Status Baseline Function- ADL's Independent Baseline Function- Mobility Independent Baseline Function- Gait no limitations Baseline Function- Work/School worked physical job Baseline Function- Recreation/Hobbies no limitations PT-OP-C Subjective Start: 01/10/24 08:07 Freq: Status: Active Protocol: Document 01/24/24 09:02 [facility] (Rec: 01/24/24 09:32 [facility] [id number]) OP-PT Subjective Patient Comments Patient Comments Saw wound care yesterday, has 2 more weeks scheduled. Getting measured for compression today. Not wearing compression; just took off 5 min ago, will bandage after measuring. Has ordred compression shorts and new bandages should be here tomorrow. PT-OP-J Posture/Palpation/Skin Start: 01/10/24 08:07 Freq: Status: Active Protocol: Document 01/10/24 09:02 [facility] (Rec: 01/10/24 16:10 [facility] [id number]) Palpation Assessment Location cyndee LE's Palpation Findings Edema Palpation Details no increased warmth Skin Assessment Edema Assessment cyndee lower legs Edema Appearance Discolored,Puffy Subjective Edema Description Pain Comments dry, scaly skin especially on toes, heels. PT-OP-K Range of Motion Start: 01/10/24 08:07 Freq: Status: Active Protocol: Document 01/10/24 09:02 [facility] (Rec: 01/10/24 16:10 [facility] [id number]) Hip Goniometric Range of Motion Hip cyndee Hip ROM WFL Yes Knee Goniometric Range of Motion Knee cyndee Knee ROM WFL Yes Ankle and Foot Goniometric Range of Motion Ankle and Foot cyndee Dorsiflexion with Knee Flexed 5 Dorsiflexion with Knee Extended 0 PT-OP-N Lymphedema Start: 01/10/24 08:07 Freq: Status: Active Protocol: Document 01/26/24 14:29 [facility] (Rec: 01/26/24 15:12 [facility] [id number]) Lymphedema Measurements Lower Extremity Circumference Measurements Right Affected MT Heads 28.7 cm Mid-foot 29.8 cm Medial Malleolus 38.6 cm 10 cm From Medial Malleolus 40.1 cm 20 cm From Medial Malleolus 42.8 cm 30 cm From Medial Malleolus 50.7 cm 40 cm From Medial Malleolus 54.5 cm 50 cm From Medial Malleolus 62.9 cm 60 cm From Medial Malleolus 71.6 cm 70 cm From Medial Malleolus 82.2 cm Knee Joint 62.9 cm Left Affected MT Heads 28.2 cm Mid-foot 29.5 cm Medial Malleolus 38.7 cm 10 cm From Medial Malleolus 41.6 cm 20 cm From Medial Malleolus 42.8 cm 30 cm From Medial Malleolus 50.7 cm 40 cm From Medial Malleolus 54 cm 50 cm From Medial Malleolus 61.7 cm 60 cm From Medial Malleolus 73.9 cm 70 cm From Medial Malleolus 80.5 cm PT-OP-Q Treatments Start: 01/10/24 08:07 Freq: Status: Active Protocol: Document 01/26/24 14:29 [facility] (Rec: 01/29/24 08:37 [facility] [id number]) Cardio Equipment Recumbent Stepper (Sci-Fit) Duration (Minutes) 15 Resistance 2 Seat Position 14 Lymphedema Treatment Manual Lymphatic Drainage Location for cyndee LE lymphedema Comments AIA pathways Lymphedema Wrapping Body Location cyndee lower legs toes to thighs Materials Size G Tricofix, 4 rolls ARtiflex, 6 rolls Comprilan 6 8x2, 10x2, 12 with Komprex kidneys right ankles and doubled wright foam left ankles Other application of Cetaphil lotion cyndee LE's Sequential Lymphedema Exercises Comments Sci-Fit as above, reviewed HEP Other Other circumferntial measurements cyndee LE's PT-OP-T Assessment and Plan Start: 01/10/24 08:07 Freq: Status: Active Protocol: Document 01/26/24 14:29 [facility] (Rec: 01/26/24 15:12 [facility] [id number]) Physical Therapy Assessment Goals Three Impairment difficulty walking due to weight of legs Senior Care Goal (LTG) Patient will be able to resume taking walks of at least 30 min without difficulty LTG Duration 04/09/24 Two Impairment activity tolerance Impairment lymphedema life impact scale 61% Short Term Goal (STG) Decrease lymphedema life impact scale to no greater than 40% STG Duration 02/27/24 Senior Care Goal (LTG) Decrease lymphedema life impact scale to no greater than 20% as measure of improved activity tolerance and quality of life LTG Duration 04/09/24 One Impairment lymphedema cyndee LE's Short Term Goal (STG) Patient will be instructed in all aspects of lymphedema self -care to include skin care, elevation, self-massage, self- bandaging/compression options, and lymphedema exercises. STG Duration 02/27/24 Professional Security Officer Goal (LTG) Decrease patient?s lymphedema to a stable level (no increase or decrease greater than 1 cm over the course of 1 week), patient to be independent with all aspects of self-care for lymphedema, and will obtain appropriate compression garment for lymphedema management in the home. LTG Duration 04/09/24 Assessment Summary Assessment Patient continues with self bandaging, had consult regarding compression garments . Having difficulty keeping compression bandaging to stay up during the day, advised to add the knee and thigh bandaging for overnight.Has ordered second set of bandaging supplies. Continues with decrease in most measurements though some variability. Physical Therapy Plan Frequency and Duration Frequency of Treatment 20 Duration of treatment (weeks) 12 Plan of Care Start Date 01/10/24 Plan of Care End Date 04/09/24 Therapeutic Interventions Therapeutic Interventions Lymphedema Management,Manual Therapy,Patient/Caregiver Education,Self-Care/Home Management,Soft Tissue Mobilization,Therapeutic Activities,Therapeutic Exercises Modalities Vasopneumatic Devices Next Visit Focus/Plan Next Note Type Treatment Note Next Visit Plan Patient to be measured for compression garment today at [facility]. Continue CDT for bilateral LE lymphedema, moving toward maintenance phase of lymphedema management . After 30 days of conservative therapy plan to request order for sequential pneumatic pump to assist with self management of his lymphedema.
--- NOTE | 2024-01-29 08:37 | PT.OTN ---
Current Diagnoses Lymphedema, not elsewhere classified (01/26/24) Difficulty in walking, not elsewhere classified (01/26/24) Physical Therapy Treatment Note PT-OP-A Visit Information Start: 01/10/24 08:07 Freq: Status: Active Protocol: Document 01/26/24 14:29 [facility] (Rec: 01/26/24 15:12 [facility] [id number]) Out-Patient Physical Therapy Visit Information Visit Information Visit Type Treatment Note Visit Note Saw Jaclyn at [facility] for consult regarding compression stockings, ordered compression shorts and wrong size came. Ordered compression bandaging supplies. Visit Start Time 14:29 Visit Stop Time 16:02 Visit Number 6 Evaluation Information Evaluation Date 01/10/24 PT-OP-B Current Condition Start: 01/10/24 08:07 Freq: Status: Active Protocol: Document 01/24/24 09:02 [facility] (Rec: 01/24/24 09:32 [facility] [id number]) Current Condition History of Current Condition Onset Date 2 years Current Complaints cyndee LE swelling knees down History of Current Condition Legs gradual onset of swelling , no known reason. States his legs were already a bit swollen and then he bumped his leg on bed large wound opened up which turned into massive wounds on legs left greater than right. Right side currently closed up, wound on left leg almost completely closed. No previous treatment for lymphedema. Spends a lot of time sitting. 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 Has gained a lot of weight past 5 years after shoulder injury with 2 surgeries. Prior Treatments and Tests current wound care using Coban wraps 1x/wk due to LE wounds Treatment Goals Patient/Caregiver Goals decrease edema, know how to self manage Prior Functional Status Baseline Function- ADL's Independent Baseline Function- Mobility Independent Baseline Function- Gait no limitations Baseline Function- Work/School worked physical job Baseline Function- Recreation/Hobbies no limitations PT-OP-C Subjective Start: 01/10/24 08:07 Freq: Status: Active Protocol: Document 01/24/24 09:02 [facility] (Rec: 01/24/24 09:32 [facility] [id number]) OP-PT Subjective Patient Comments Patient Comments Saw wound care yesterday, has 2 more weeks scheduled. Getting measured for compression today. Not wearing compression; just took off 5 min ago, will bandage after measuring. Has ordred compression shorts and new bandages should be here tomorrow. PT-OP-J Posture/Palpation/Skin Start: 01/10/24 08:07 Freq: Status: Active Protocol: Document 01/10/24 09:02 [facility] (Rec: 01/10/24 16:10 [facility] [id number]) Palpation Assessment Location cyndee LE's Palpation Findings Edema Palpation Details no increased warmth Skin Assessment Edema Assessment cyndee lower legs Edema Appearance Discolored,Puffy Subjective Edema Description Pain Comments dry, scaly skin especially on toes, heels. PT-OP-K Range of Motion Start: 01/10/24 08:07 Freq: Status: Active Protocol: Document 01/10/24 09:02 [facility] (Rec: 01/10/24 16:10 [facility] [id number]) Hip Goniometric Range of Motion Hip cyndee Hip ROM WFL Yes Knee Goniometric Range of Motion Knee cyndee Knee ROM WFL Yes Ankle and Foot Goniometric Range of Motion Ankle and Foot cyndee Dorsiflexion with Knee Flexed 5 Dorsiflexion with Knee Extended 0 PT-OP-N Lymphedema Start: 01/10/24 08:07 Freq: Status: Active Protocol: Document 01/26/24 14:29 [facility] (Rec: 01/26/24 15:12 [facility] [id number]) Lymphedema Measurements Lower Extremity Circumference Measurements Right Affected MT Heads 28.7 cm Mid-foot 29.8 cm Medial Malleolus 38.6 cm 10 cm From Medial Malleolus 40.1 cm 20 cm From Medial Malleolus 42.8 cm 30 cm From Medial Malleolus 50.7 cm 40 cm From Medial Malleolus 54.5 cm 50 cm From Medial Malleolus 62.9 cm 60 cm From Medial Malleolus 71.6 cm 70 cm From Medial Malleolus 82.2 cm Knee Joint 62.9 cm Left Affected MT Heads 28.2 cm Mid-foot 29.5 cm Medial Malleolus 38.7 cm 10 cm From Medial Malleolus 41.6 cm 20 cm From Medial Malleolus 42.8 cm 30 cm From Medial Malleolus 50.7 cm 40 cm From Medial Malleolus 54 cm 50 cm From Medial Malleolus 61.7 cm 60 cm From Medial Malleolus 73.9 cm 70 cm From Medial Malleolus 80.5 cm PT-OP-Q Treatments Start: 01/10/24 08:07 Freq: Status: Active Protocol: Document 01/26/24 14:29 [facility] (Rec: 01/29/24 08:37 [facility] [id number]) Cardio Equipment Recumbent Stepper (Sci-Fit) Duration (Minutes) 15 Resistance 2 Seat Position 14 Lymphedema Treatment Manual Lymphatic Drainage Location for cyndee LE lymphedema Comments AIA pathways Lymphedema Wrapping Body Location cyndee lower legs toes to thighs Materials Size G Tricofix, 4 rolls ARtiflex, 6 rolls Comprilan 6 8x2, 10x2, 12 with Komprex kidneys right ankles and doubled wright foam left ankles Other application of Cetaphil lotion cyndee LE's Sequential Lymphedema Exercises Comments Sci-Fit as above, reviewed HEP Other Other circumferntial measurements cyndee LE's PT-OP-T Assessment and Plan Start: 01/10/24 08:07 Freq: Status: Active Protocol: Document 01/26/24 14:29 [facility] (Rec: 01/26/24 15:12 [facility] [id number]) Physical Therapy Assessment Goals Three Impairment difficulty walking due to weight of legs Mcc Goal (LTG) Patient will be able to resume taking walks of at least 30 min without difficulty LTG Duration 04/09/24 Two Impairment activity tolerance Impairment lymphedema life impact scale 61% Short Term Goal (STG) Decrease lymphedema life impact scale to no greater than 40% STG Duration 02/27/24 Mcc Goal (LTG) Decrease lymphedema life impact scale to no greater than 20% as measure of improved activity tolerance and quality of life LTG Duration 04/09/24 One Impairment lymphedema cyndee LE's Short Term Goal (STG) Patient will be instructed in all aspects of lymphedema self -care to include skin care, elevation, self-massage, self- bandaging/compression options, and lymphedema exercises. STG Duration 02/27/24 Diabetes Clinical Manager Goal (LTG) Decrease patient?s lymphedema to a stable level (no increase or decrease greater than 1 cm over the course of 1 week), patient to be independent with all aspects of self-care for lymphedema, and will obtain appropriate compression garment for lymphedema management in the home. LTG Duration 04/09/24 Assessment Summary Assessment Patient continues with self bandaging, had consult regarding compression garments . Having difficulty keeping compression bandaging to stay up during the day, advised to add the knee and thigh bandaging for overnight.Has ordered second set of bandaging supplies. Continues with decrease in most measurements though some variability. Physical Therapy Plan Frequency and Duration Frequency of Treatment 20 Duration of treatment (weeks) 12 Plan of Care Start Date 01/10/24 Plan of Care End Date 04/09/24 Therapeutic Interventions Therapeutic Interventions Lymphedema Management,Manual Therapy,Patient/Caregiver Education,Self-Care/Home Management,Soft Tissue Mobilization,Therapeutic Activities,Therapeutic Exercises Modalities Vasopneumatic Devices Next Visit Focus/Plan Next Note Type Treatment Note Next Visit Plan Patient to be measured for compression garment today at [facility]. Continue CDT for bilateral LE lymphedema, moving toward maintenance phase of lymphedema management . After 30 days of conservative therapy plan to request order for sequential pneumatic pump to assist with self management of his lymphedema.
--- NOTE | 2024-01-31 09:58 | PT.OTN ---
Current Diagnoses Lymphedema, not elsewhere classified (01/31/24) Difficulty in walking, not elsewhere classified (01/31/24) Physical Therapy Treatment Note PT-OP-A Visit Information Start: 01/10/24 08:07 Freq: Status: Active Protocol: Document 01/31/24 08:57 [facility] (Rec: 01/31/24 09:56 [facility] [id number]) Out-Patient Physical Therapy Visit Information Visit Information Visit Type Treatment Note Visit Start Time 09:00 Visit Stop Time 16:02 Visit Number 7 PT-OP-B Current Condition Start: 01/10/24 08:07 Freq: Status: Active Protocol: Document 01/24/24 09:02 [facility] (Rec: 01/24/24 09:32 [facility] [id number]) Current Condition History of Current Condition Onset Date 2 years Current Complaints cyndee LE swelling knees down History of Current Condition Legs gradual onset of swelling , no known reason. States his legs were already a bit swollen and then he bumped his leg on bed large wound opened up which turned into massive wounds on legs left greater than right. Right side currently closed up, wound on left leg almost completely closed. No previous treatment for lymphedema. Spends a lot of time sitting. 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 Has gained a lot of weight past 5 years after shoulder injury with 2 surgeries. Prior Treatments and Tests current wound care using Coban wraps 1x/wk due to LE wounds Treatment Goals Patient/Caregiver Goals decrease edema, know how to self manage Prior Functional Status Baseline Function- ADL's Independent Baseline Function- Mobility Independent Baseline Function- Gait no limitations Baseline Function- Work/School worked physical job Baseline Function- Recreation/Hobbies no limitations PT-OP-C Subjective Start: 01/10/24 08:07 Freq: Status: Active Protocol: Document 01/31/24 08:57 [facility] (Rec: 01/31/24 09:56 [facility] [id number]) OP-PT Subjective Patient Comments Patient Comments No new c/o. Sees wound care next week. PT-OP-J Posture/Palpation/Skin Start: 01/10/24 08:07 Freq: Status: Active Protocol: Document 01/10/24 09:02 [facility] (Rec: 01/10/24 16:10 [facility] [id number]) Palpation Assessment Location cyndee LE's Palpation Findings Edema Palpation Details no increased warmth Skin Assessment Edema Assessment cyndee lower legs Edema Appearance Discolored,Puffy Subjective Edema Description Pain Comments dry, scaly skin especially on toes, heels. PT-OP-K Range of Motion Start: 01/10/24 08:07 Freq: Status: Active Protocol: Document 01/10/24 09:02 [facility] (Rec: 01/10/24 16:10 [facility] [id number]) Hip Goniometric Range of Motion Hip cyndee Hip ROM WFL Yes Knee Goniometric Range of Motion Knee cyndee Knee ROM WFL Yes Ankle and Foot Goniometric Range of Motion Ankle and Foot cyndee Dorsiflexion with Knee Flexed 5 Dorsiflexion with Knee Extended 0 PT-OP-N Lymphedema Start: 01/10/24 08:07 Freq: Status: Active Protocol: Document 01/31/24 08:57 [facility] (Rec: 01/31/24 09:56 [facility] [id number]) Lymphedema Measurements Lower Extremity Circumference Measurements Right Affected MT Heads 29 cm Mid-foot 29.2 cm Medial Malleolus 37.1 cm 10 cm From Medial Malleolus 36.4 cm 20 cm From Medial Malleolus 42.9 cm 30 cm From Medial Malleolus 55.2 cm 40 cm From Medial Malleolus 56.5 cm 50 cm From Medial Malleolus 62.4 cm 60 cm From Medial Malleolus 71.7 cm 70 cm From Medial Malleolus 81.9 cm Knee Joint 62.4 cm Left Affected MT Heads 29.2 cm Mid-foot 29.4 cm Medial Malleolus 38.4 cm 10 cm From Medial Malleolus 38.3 cm 20 cm From Medial Malleolus 43.7 cm 30 cm From Medial Malleolus 55 cm 40 cm From Medial Malleolus 51.6 cm 50 cm From Medial Malleolus 65.3 cm 60 cm From Medial Malleolus 72.7 cm 70 cm From Medial Malleolus 804 cm Knee Joint 65.3 cm PT-OP-Q Treatments Start: 01/10/24 08:07 Freq: Status: Active Protocol: Document 01/31/24 08:57 [facility] (Rec: 01/31/24 09:56 [facility] [id number]) Cardio Equipment Recumbent Stepper (Sci-Fit) Duration (Minutes) 15 Resistance 2 Seat Position 14 Lymphedema Treatment Manual Lymphatic Drainage Location for cyndee LE lymphedema Comments AIA pathways Lymphedema Wrapping Body Location cyndee lower legs toes to thighs Materials Size G Tricofix, 4 rolls ARtiflex, 6 rolls Comprilan 6 8x2, 10x2, 12 with Komprex kidneys right ankles and doubled wright foam left ankles Other application of Cetaphil lotion cyndee LE's Sequential Lymphedema Exercises Comments Sci-Fit as above, reviewed HEP Other Other circumferntial measurements cyndee LE's PT-OP-T Assessment and Plan Start: 01/10/24 08:07 Freq: Status: Active Protocol: Document 01/31/24 08:57 [facility] (Rec: 01/31/24 09:56 [facility] [id number]) Physical Therapy Assessment Goals Three Impairment difficulty walking due to weight of legs Shelter Goal (LTG) Patient will be able to resume taking walks of at least 30 min without difficulty LTG Duration 04/09/24 Two Impairment activity tolerance Impairment lymphedema life impact scale 61% Short Term Goal (STG) Decrease lymphedema life impact scale to no greater than 40% STG Duration 02/27/24 Manager Environmental Affairs Goal (LTG) Decrease lymphedema life impact scale to no greater than 20% as measure of improved activity tolerance and quality of life LTG Duration 04/09/24 One Impairment lymphedema cyndee LE's Short Term Goal (STG) Patient will be instructed in all aspects of lymphedema self -care to include skin care, elevation, self-massage, self- bandaging/compression options, and lymphedema exercises. STG Duration 02/27/24 Manager Environmental Affairs Goal (LTG) Decrease patient?s lymphedema to a stable level (no increase or decrease greater than 1 cm over the course of 1 week), patient to be independent with all aspects of self-care for lymphedema, and will obtain appropriate compression garment for lymphedema management in the home. LTG Duration 04/09/24 Assessment Summary Assessment Good progress with continued decrease in distal circumferential measurements, though increase in knees, pt reporting will increase focus with bandaging. Physical Therapy Plan Frequency and Duration Frequency of Treatment 20 Duration of treatment (weeks) 12 Plan of Care Start Date 01/10/24 Plan of Care End Date 04/09/24 Therapeutic Interventions Therapeutic Interventions Lymphedema Management,Manual Therapy,Patient/Caregiver Education,Self-Care/Home Management,Soft Tissue Mobilization,Therapeutic Activities,Therapeutic Exercises Modalities Vasopneumatic Devices Next Visit Focus/Plan Next Note Type Treatment Note Next Visit Plan Continue CDT.
--- NOTE | 2024-02-01 10:21 | PT.OTN ---
Current Diagnoses Lymphedema, not elsewhere classified (02/01/24) Difficulty in walking, not elsewhere classified (02/01/24) Physical Therapy Treatment Note PT-OP-A Visit Information Start: 01/10/24 08:07 Freq: Status: Active Protocol: Document 02/01/24 09:01 [facility] (Rec: 02/01/24 09:56 [facility] [id number]) Out-Patient Physical Therapy Visit Information Visit Information Visit Type Treatment Note Visit Start Time 09:00 Visit Stop Time 10:30 Visit Number 8 Evaluation Information Evaluation Date 01/10/24 PT-OP-B Current Condition Start: 01/10/24 08:07 Freq: Status: Active Protocol: Document 01/24/24 09:02 [facility] (Rec: 01/24/24 09:32 [facility] [id number]) Current Condition History of Current Condition Onset Date 2 years Current Complaints cyndee LE swelling knees down History of Current Condition Legs gradual onset of swelling , no known reason. States his legs were already a bit swollen and then he bumped his leg on bed large wound opened up which turned into massive wounds on legs left greater than right. Right side currently closed up, wound on left leg almost completely closed. No previous treatment for lymphedema. Spends a lot of time sitting. 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 Has gained a lot of weight past 5 years after shoulder injury with 2 surgeries. Prior Treatments and Tests current wound care using Coban wraps 1x/wk due to LE wounds Treatment Goals Patient/Caregiver Goals decrease edema, know how to self manage Prior Functional Status Baseline Function- ADL's Independent Baseline Function- Mobility Independent Baseline Function- Gait no limitations Baseline Function- Work/School worked physical job Baseline Function- Recreation/Hobbies no limitations PT-OP-C Subjective Start: 01/10/24 08:07 Freq: Status: Active Protocol: Document 02/01/24 09:01 [facility] (Rec: 02/01/24 09:56 [facility] [id number]) OP-PT Subjective Patient Comments Patient Comments no new c/o. PT-OP-J Posture/Palpation/Skin Start: 01/10/24 08:07 Freq: Status: Active Protocol: Document 01/10/24 09:02 [facility] (Rec: 01/10/24 16:10 [facility] [id number]) Palpation Assessment Location cyndee LE's Palpation Findings Edema Palpation Details no increased warmth Skin Assessment Edema Assessment cyndee lower legs Edema Appearance Discolored,Puffy Subjective Edema Description Pain Comments dry, scaly skin especially on toes, heels. PT-OP-K Range of Motion Start: 01/10/24 08:07 Freq: Status: Active Protocol: Document 01/10/24 09:02 [facility] (Rec: 01/10/24 16:10 [facility] [id number]) Hip Goniometric Range of Motion Hip cyndee Hip ROM WFL Yes Knee Goniometric Range of Motion Knee cyndee Knee ROM WFL Yes Ankle and Foot Goniometric Range of Motion Ankle and Foot cyndee Dorsiflexion with Knee Flexed 5 Dorsiflexion with Knee Extended 0 PT-OP-N Lymphedema Start: 01/10/24 08:07 Freq: Status: Active Protocol: Document 02/01/24 09:01 [facility] (Rec: 02/01/24 09:56 [facility] [id number]) Lymphedema Measurements Lower Extremity Circumference Measurements Right Affected MT Heads 29.1 cm Mid-foot 28.8 cm Medial Malleolus 38 cm 10 cm From Medial Malleolus 35.5 cm 20 cm From Medial Malleolus 43.7 cm 30 cm From Medial Malleolus 56.67 cm 40 cm From Medial Malleolus 51.8 cm 50 cm From Medial Malleolus 62.5 cm 60 cm From Medial Malleolus 73.2 cm 70 cm From Medial Malleolus 80.4 cm Knee Joint 62.5 cm Left Affected MT Heads 28.6 cm Mid-foot 29.1 cm Medial Malleolus 37.2 cm 10 cm From Medial Malleolus 38.5 cm 20 cm From Medial Malleolus 46.1 cm 30 cm From Medial Malleolus 55.4 cm 40 cm From Medial Malleolus 53.6 cm 50 cm From Medial Malleolus 61.7 cm 60 cm From Medial Malleolus 71.9 cm 70 cm From Medial Malleolus 83.1 cm Knee Joint 62.5 cm PT-OP-Q Treatments Start: 01/10/24 08:07 Freq: Status: Active Protocol: Document 02/01/24 09:01 [facility] (Rec: 02/01/24 09:56 [facility] [id number]) Cardio Equipment Recumbent Stepper (Sci-Fit) Duration (Minutes) 15 Resistance 2 Seat Position 14 Lymphedema Treatment Lymphedema Wrapping Body Location cyndee lower legs toes to thighs Materials Size G Tricofix, 4 rolls ARtiflex, 6 rolls Comprilan 6 8x2, 10x2, 12 with Komprex kidneys right ankles and doubled wright foam left ankles Other application of Cetaphil lotion cyndee LE's Sequential Lymphedema Exercises Comments Sci-Fit as above, reviewed HEP Other Other circumferntial measurements cyndee LE's PT-OP-T Assessment and Plan Start: 01/10/24 08:07 Freq: Status: Active Protocol: Document 02/01/24 09:01 [facility] (Rec: 02/01/24 09:56 [facility] [id number]) Physical Therapy Assessment Goals Three Impairment difficulty walking due to weight of legs [facility]dc Goal (LTG) Patient will be able to resume taking walks of at least 30 min without difficulty LTG Duration 04/09/24 Two Impairment activity tolerance Impairment lymphedema life impact scale 61% Short Term Goal (STG) Decrease lymphedema life impact scale to no greater than 40% STG Duration 02/27/24 Fdc Goal (LTG) Decrease lymphedema life impact scale to no greater than 20% as measure of improved activity tolerance and quality of life LTG Duration 04/09/24 One Impairment lymphedema cyndee LE's Short Term Goal (STG) Patient will be instructed in all aspects of lymphedema self -care to include skin care, elevation, self-massage, self- bandaging/compression options, and lymphedema exercises. STG Duration 02/27/24 Fdc Goal (LTG) Decrease patient?s lymphedema to a stable level (no increase or decrease greater than 1 cm over the course of 1 week), patient to be independent with all aspects of self-care for lymphedema, and will obtain appropriate compression garment for lymphedema management in the home. LTG Duration 04/09/24 Assessment Summary Assessment Continued progress with decrease in circumferential measurements, excellent compliance to self care. Feel he will benefit from use of a pneumatic compression pump to assist in his self care especially due to his history of wounds on LE's and potential for complications from lymphedema such as cellulitis. Physical Therapy Plan Frequency and Duration Frequency of Treatment 20 Duration of treatment (weeks) 12 Plan of Care Start Date 01/10/24 Plan of Care End Date 04/09/24 Therapeutic Interventions Therapeutic Interventions Lymphedema Management,Manual Therapy,Patient/Caregiver Education,Self-Care/Home Management,Soft Tissue Mobilization,Therapeutic Activities,Therapeutic Exercises Modalities Vasopneumatic Devices Next Visit Focus/Plan Next Note Type Treatment Note Next Visit Plan Continue CDT. Assess patient fit of compression garments when come. Assist patient in obtaining pneumatic compression pump for use in the home.
--- NOTE | 2024-02-14 14:03 | PT.OTN ---
Current Diagnoses Lymphedema, not elsewhere classified (02/14/24) Difficulty in walking, not elsewhere classified (02/14/24) Physical Therapy Treatment Note PT-OP-A Visit Information Start: 01/10/24 08:07 Freq: Status: Active Protocol: Document 02/14/24 09:02 [facility] (Rec: 02/14/24 09:52 [facility] [id number]) Out-Patient Physical Therapy Visit Information Visit Information Visit Type Treatment Note Visit Start Time 09:00 Visit Stop Time 10:30 Visit Number 9 Evaluation Information Evaluation Date 01/10/24 PT-OP-B Current Condition Start: 01/10/24 08:07 Freq: Status: Active Protocol: Document 01/24/24 09:02 [facility] (Rec: 01/24/24 09:32 [facility] [id number]) Current Condition History of Current Condition Onset Date 2 years Current Complaints cyndee LE swelling knees down History of Current Condition Legs gradual onset of swelling , no known reason. States his legs were already a bit swollen and then he bumped his leg on bed large wound opened up which turned into massive wounds on legs left greater than right. Right side currently closed up, wound on left leg almost completely closed. No previous treatment for lymphedema. Spends a lot of time sitting. 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 Has gained a lot of weight past 5 years after shoulder injury with 2 surgeries. 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 Just in wound care again yesterday, staph infection, finishing antibiotics for that with 2 more days left. Has continued to bandage and do all other aspects of self lymphedema care. Is hopeful he will be able to get pneumatic compression pumps due to continued difficulty with self -managing. Continuing to bandage legs with assist of until compression garments come, hopefully this week. PT-OP-J Posture/Palpation/Skin Start: 01/10/24 08:07 Freq: Status: Active Protocol: Document 01/10/24 09:02 [facility] (Rec: 01/10/24 16:10 [facility] [id number]) Palpation Assessment Location cyndee LE's Palpation Findings Edema Palpation Details no increased warmth Skin Assessment Edema Assessment cyndee lower legs Edema Appearance Discolored,Puffy Subjective Edema Description Pain Comments dry, scaly skin especially on toes, heels. PT-OP-K Range of Motion Start: 01/10/24 08:07 Freq: Status: Active Protocol: Document 01/10/24 09:02 [facility] (Rec: 01/10/24 16:10 [facility] [id number]) Hip Goniometric Range of Motion Hip cyndee Hip ROM WFL Yes Knee Goniometric Range of Motion Knee cyndee Knee ROM WFL Yes Ankle and Foot Goniometric Range of Motion Ankle and Foot cyndee Dorsiflexion with Knee Flexed 5 Dorsiflexion with Knee Extended 0 PT-OP-N Lymphedema Start: 01/10/24 08:07 Freq: Status: Active Protocol: Document 02/14/24 09:02 [facility] (Rec: 02/14/24 09:52 [facility] [id number]) Lymphedema Measurements Lower Extremity Circumference Measurements Right Affected MT Heads 28 cm Mid-foot 29.6 cm Medial Malleolus 37.7 cm 10 cm From Medial Malleolus 39.6 cm 20 cm From Medial Malleolus 49.5 cm 30 cm From Medial Malleolus 56.9 cm 40 cm From Medial Malleolus 57 cm 50 cm From Medial Malleolus 64 cm 60 cm From Medial Malleolus 72.8 cm 70 cm From Medial Malleolus 83 cm Knee Joint 64 cm Left Affected MT Heads 27.9 cm Mid-foot 28.5 cm Medial Malleolus 40.8 cm 10 cm From Medial Malleolus 46.5 cm 20 cm From Medial Malleolus 53 cm 30 cm From Medial Malleolus 55.2 cm 40 cm From Medial Malleolus 53.4 cm 50 cm From Medial Malleolus 63 cm 60 cm From Medial Malleolus 73.2 cm 70 cm From Medial Malleolus 83 cm Knee Joint 63 cm PT-OP-Q Treatments Start: 01/10/24 08:07 Freq: Status: Active Protocol: Document 02/14/24 09:02 [facility] (Rec: 02/14/24 09:52 [facility] [id number]) Lymphedema Treatment Manual Lymphatic Drainage Location for cyndee LE lymphedema Comments AIA pathways Lymphedema Wrapping Body Location cyndee lower legs toes to thighs Materials Size G Tricofix, 4 rolls ARtiflex, 6 rolls Comprilan 6 8x2, 10x2, 12 with Komprex kidneys right ankles and doubled wright foam left ankles Other application of Cetaphil lotion cyndee LE's Sequential Lymphedema Exercises Comments Sci-Fit as above, reviewed HEP Compression Garment Assessment Compression Garment Assessment Details should come this week. Other Other circumferntial measurements cyndee JOSE's PT-OP-T Assessment and Plan Start: 01/10/24 08:07 Freq: Status: Active Protocol: Document 02/14/24 09:02 [facility] (Rec: 02/14/24 09:52 [facility] [id number]) Physical Therapy Assessment Goals Three Impairment difficulty walking due to weight of legs Enamel Cracker Goal (LTG) Patient will be able to resume taking walks of at least 30 min without difficulty LTG Duration 04/09/24 Two Impairment activity tolerance Impairment lymphedema life impact scale 61% Short Term Goal (STG) Decrease lymphedema life impact scale to no greater than 40% STG Duration 02/27/24 Enamel Cracker Goal (LTG) Decrease lymphedema life impact scale to no greater than 20% as measure of improved activity tolerance and quality of life LTG Duration 04/09/24 One Impairment lymphedema cyndee LE's Short Term Goal (STG) Patient will be instructed in all aspects of lymphedema self -care to include skin care, elevation, self-massage, self- bandaging/compression options, and lymphedema exercises. STG Duration 02/27/24 Group Home Goal (LTG) Decrease patient?s lymphedema to a stable level (no increase or decrease greater than 1 cm over the course of 1 week), patient to be independent with all aspects of self-care for lymphedema, and will obtain appropriate compression garment for lymphedema management in the home. LTG Duration 04/09/24 Assessment Summary Assessment Patient has had setback with development of abscess right LE, back to seeing wound care. He has completed more than 30 days of conservative PT care for his bilateral LE lymphedema including skin care , elevation, compression bandaging, MLD, and exercise. He has been highly compliant to his self care program with the assistance of his for bandaging, wearing bandaging 23 hrs/day. He has increased his activity level for improved use of muscular pump to facilitate lymphatic flow. Despite all these measures his lymphedema remains difficult for him to manage in the home and I feel he would benefit highly from the use of a pneumatic compression pump in the home and he is very interested and highly motivated. Physical Therapy Plan Frequency and Duration Frequency of Treatment 20 Duration of treatment (weeks) 12 Plan of Care Start Date 01/10/24 Plan of Care End Date 04/09/24 Therapeutic Interventions Therapeutic Interventions Lymphedema Management,Manual Therapy,Patient/Caregiver Education,Self-Care/Home Management,Soft Tissue Mobilization,Therapeutic Activities,Therapeutic Exercises Modalities Vasopneumatic Devices Next Visit Focus/Plan Next Note Type Treatment Note Next Visit Plan Continue CDT. Assess patient fit and ability to don compression garments when come . Assist patient in obtaining pneumatic compression pump for use in the home.
--- NOTE | 2024-02-15 09:26 | PT.OTN ---
Current Diagnoses Lymphedema, not elsewhere classified (02/15/24) Difficulty in walking, not elsewhere classified (02/15/24) Physical Therapy Treatment Note PT-OP-A Visit Information Start: 01/10/24 08:07 Freq: Status: Active Protocol: Document 02/15/24 09:07 [facility] (Rec: 02/15/24 09:26 [facility] [id number]) Out-Patient Physical Therapy Visit Information Visit Information Visit Type Treatment Note Visit Start Time 09:05 Visit Stop Time 10:30 Visit Number 10 Evaluation Information Evaluation Date 01/10/24 PT-OP-B Current Condition Start: 01/10/24 08:07 Freq: Status: Active Protocol: Document 02/15/24 09:07 [facility] (Rec: 02/15/24 09:26 [facility] [id number]) Current Condition History of Current Condition Onset Date 2 years Current Complaints cyndee LE swelling knees down History of Current Condition Legs gradual onset of swelling , no known reason. States his legs were already a bit swollen and then he bumped his leg on bed large wound opened up which turned into massive wounds on legs left greater than right. Right side currently closed up, wound on left leg almost completely closed. No previous treatment for lymphedema. Spends a lot of time sitting. 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 Has gained a lot of weight past 5 years after shoulder injury with 2 surgeries. Prior Treatments and Tests current wound care using Coban wraps 1x/wk due to LE wounds PT-OP-C Subjective Start: 01/10/24 08:07 Freq: Status: Active Protocol: Document 02/15/24 09:07 [facility] (Rec: 02/15/24 09:26 [facility] [id number]) OP-PT Subjective Patient Comments Patient Comments Slept ok, bandaging was ok. Just removed prior to PT. Excited to get compression pump if approved PT-OP-J Posture/Palpation/Skin Start: 01/10/24 08:07 Freq: Status: Active Protocol: Document 01/10/24 09:02 [facility] (Rec: 01/10/24 16:10 [facility] [id number]) Palpation Assessment Location cyndee LE's Palpation Findings Edema Palpation Details no increased warmth Skin Assessment Edema Assessment cyndee lower legs Edema Appearance Discolored,Puffy Subjective Edema Description Pain Comments dry, scaly skin especially on toes, heels. PT-OP-K Range of Motion Start: 01/10/24 08:07 Freq: Status: Active Protocol: Document 01/10/24 09:02 [facility] (Rec: 01/10/24 16:10 [facility] [id number]) Hip Goniometric Range of Motion Hip cyndee Hip ROM WFL Yes Knee Goniometric Range of Motion Knee cyndee Knee ROM WFL Yes Ankle and Foot Goniometric Range of Motion Ankle and Foot cyndee Dorsiflexion with Knee Flexed 5 Dorsiflexion with Knee Extended 0 PT-OP-N Lymphedema Start: 01/10/24 08:07 Freq: Status: Active Protocol: Document 02/14/24 09:02 [facility] (Rec: 02/14/24 09:52 [facility] [id number]) Lymphedema Measurements Lower Extremity Circumference Measurements Right Affected MT Heads 28 cm Mid-foot 29.6 cm Medial Malleolus 37.7 cm 10 cm From Medial Malleolus 39.6 cm 20 cm From Medial Malleolus 49.5 cm 30 cm From Medial Malleolus 56.9 cm 40 cm From Medial Malleolus 57 cm 50 cm From Medial Malleolus 64 cm 60 cm From Medial Malleolus 72.8 cm 70 cm From Medial Malleolus 83 cm Knee Joint 64 cm Left Affected MT Heads 27.9 cm Mid-foot 28.5 cm Medial Malleolus 40.8 cm 10 cm From Medial Malleolus 46.5 cm 20 cm From Medial Malleolus 53 cm 30 cm From Medial Malleolus 55.2 cm 40 cm From Medial Malleolus 53.4 cm 50 cm From Medial Malleolus 63 cm 60 cm From Medial Malleolus 73.2 cm 70 cm From Medial Malleolus 83 cm Knee Joint 63 cm PT-OP-Q Treatments Start: 01/10/24 08:07 Freq: Status: Active Protocol: Document 02/15/24 09:07 [facility] (Rec: 02/15/24 09:26 [facility] [id number]) Cardio Equipment Recumbent Stepper (Sci-Fit) Duration (Minutes) 15 Resistance 2 Seat Position 14 Lymphedema Treatment Manual Lymphatic Drainage Location for cyndee LE lymphedema Comments AIA pathways Lymphedema Wrapping Body Location cyndee lower legs toes to thighs Materials Size G Tricofix, 4 rolls ARtiflex, 6 rolls Comprilan 6 8x2, 10x2, 12 with Komprex kidneys right ankles and doubled wright foam left ankles Other application of Cetaphil lotion cyndee LE's Sequential Lymphedema Exercises Comments Sci-Fit as above, reviewed HEP including importance of trunk rotation PT-OP-T Assessment and Plan Start: 01/10/24 08:07 Freq: Status: Active Protocol: Document 02/15/24 09:07 [facility] (Rec: 02/15/24 09:26 [facility] [id number]) Physical Therapy Assessment Goals Three Impairment difficulty walking due to weight of legs Mcc Goal (LTG) Patient will be able to resume taking walks of at least 30 min without difficulty LTG Duration 04/09/24 Two Impairment activity tolerance Impairment lymphedema life impact scale 61% Short Term Goal (STG) Decrease lymphedema life impact scale to no greater than 40% STG Duration 02/27/24 Mcc Goal (LTG) Decrease lymphedema life impact scale to no greater than 20% as measure of improved activity tolerance and quality of life LTG Duration 04/09/24 One Impairment lymphedema cyndee LE's Short Term Goal (STG) Patient will be instructed in all aspects of lymphedema self -care to include skin care, elevation, self-massage, self- bandaging/compression options, and lymphedema exercises. STG Duration 02/27/24 Mcc Goal (LTG) Decrease patient?s lymphedema to a stable level (no increase or decrease greater than 1 cm over the course of 1 week), patient to be independent with all aspects of self-care for lymphedema, and will obtain appropriate compression garment for lymphedema management in the home. LTG Duration 04/09/24 Assessment Summary Assessment NOting improved skin condition , increased activity tolerance . Min significant change in circumferential measurements today. Should get compression garments this week. Physical Therapy Plan Frequency and Duration Frequency of Treatment 20 Duration of treatment (weeks) 12 Plan of Care Start Date 01/10/24 Plan of Care End Date 04/09/24 Therapeutic Interventions Therapeutic Interventions Lymphedema Management,Manual Therapy,Patient/Caregiver Education,Self-Care/Home Management,Soft Tissue Mobilization,Therapeutic Activities,Therapeutic Exercises Modalities Vasopneumatic Devices Next Visit Focus/Plan Next Note Type Treatment Note Next Visit Plan Continue CDT. Assess patient fit and ability to don compression garments when come . Assist patient in obtaining pneumatic compression pump for use in the home.
--- NOTE | 2024-03-14 16:09 | PT.OTN ---
Current Diagnoses Lymphedema, not elsewhere classified (03/14/24) Difficulty in walking, not elsewhere classified (03/14/24) Physical Therapy Treatment Note PT-OP-A Visit Information Start: 01/10/24 08:07 Freq: Status: Active Protocol: Document 03/14/24 15:15 [facility] (Rec: 03/14/24 16:09 [facility] [id number]) Out-Patient Physical Therapy Visit Information Visit Information Visit Type Treatment Note Visit Start Time 15:15 Visit Stop Time 15:54 Visit Number 11 PT-OP-B Current Condition Start: 01/10/24 08:07 Freq: Status: Active Protocol: Document 03/14/24 15:15 [facility] (Rec: 03/14/24 16:09 [facility] [id number]) Current Condition History of Current Condition Onset Date 2 years Current Complaints cyndee LE swelling knees down History of Current Condition Legs gradual onset of swelling , no known reason. States his legs were already a bit swollen and then he bumped his leg on bed large wound opened up which turned into massive wounds on legs left greater than right. Right side currently closed up, wound on left leg almost completely closed. No previous treatment for lymphedema. Spends a lot of time sitting. 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 Has gained a lot of weight past 5 years after shoulder injury with 2 surgeries. Prior Treatments and Tests current wound care using Coban wraps 1x/wk due to LE wounds PT-OP-C Subjective Start: 01/10/24 08:07 Freq: Status: Active Protocol: Document 03/14/24 15:15 [facility] (Rec: 03/14/24 16:09 [facility] [id number]) OP-PT Subjective Patient Comments Patient Comments Has compression stockings, isn 't entirely happy with them, states he is not sure they are maintaining his reduction, does better with compression bandages. States he has a wound on each leg now. Has to wear toe bandaging under the compression stockings. Today' s treatment is for training in sequential pneumatic pump as arrived yesterday. See again next week. PT-OP-J Posture/Palpation/Skin Start: 01/10/24 08:07 Freq: Status: Active Protocol: Document 01/10/24 09:02 [facility] (Rec: 01/10/24 16:10 [facility] [id number]) Palpation Assessment Location cyndee LE's Palpation Findings Edema Palpation Details no increased warmth Skin Assessment Edema Assessment cyndee lower legs Edema Appearance Discolored,Puffy Subjective Edema Description Pain Comments dry, scaly skin especially on toes, heels. PT-OP-K Range of Motion Start: 01/10/24 08:07 Freq: Status: Active Protocol: Document 01/10/24 09:02 [facility] (Rec: 01/10/24 16:10 [facility] [id number]) Hip Goniometric Range of Motion Hip cyndee Hip ROM WFL Yes Knee Goniometric Range of Motion Knee cyndee Knee ROM WFL Yes Ankle and Foot Goniometric Range of Motion Ankle and Foot cyndee Dorsiflexion with Knee Flexed 5 Dorsiflexion with Knee Extended 0 PT-OP-N Lymphedema Start: 01/10/24 08:07 Freq: Status: Active Protocol: Document 03/14/24 15:15 [facility] (Rec: 03/14/24 16:09 [facility] [id number]) Lymphedema Measurements Lower Extremity Circumference Measurements Right Affected - measure next session Left Affected - measure next session PT-OP-Q Treatments Start: 01/10/24 08:07 Freq: Status: Active Protocol: Document 03/14/24 15:15 [facility] (Rec: 03/14/24 16:09 [facility] [id number]) Self-Care/Home Management Treatment Education Other Education instruction in set up and use of Airos seqeuntial pneumatic pump for bilateral LE use in the home. PT demonstrated set -up and use and patient demonstrated good understanding and was issued pump PT-OP-T Assessment and Plan Start: 01/10/24 08:07 Freq: Status: Active Protocol: Document 03/14/24 15:15 [facility] (Rec: 03/14/24 16:09 [facility] [id number]) Physical Therapy Assessment Goals Three Impairment difficulty walking due to weight of legs Shelter Goal (LTG) Patient will be able to resume taking walks of at least 30 min without difficulty LTG Duration 04/09/24 Two Impairment activity tolerance Impairment lymphedema life impact scale 61% Short Term Goal (STG) Decrease lymphedema life impact scale to no greater than 40% STG Duration 02/27/24 Shelter Goal (LTG) Decrease lymphedema life impact scale to no greater than 20% as measure of improved activity tolerance and quality of life LTG Duration 04/09/24 One Impairment lymphedema cyndee LE's Short Term Goal (STG) Patient will be instructed in all aspects of lymphedema self -care to include skin care, elevation, self-massage, self- bandaging/compression options, and lymphedema exercises. STG Duration 02/27/24 Merchandising Professor Goal (LTG) Decrease patient?s lymphedema to a stable level (no increase or decrease greater than 1 cm over the course of 1 week), patient to be independent with all aspects of self-care for lymphedema, and will obtain appropriate compression garment for lymphedema management in the home. LTG Duration 04/09/24 Assessment Summary Assessment instruction in set up and use of Airos seqeuntial pneumatic pump for bilateral LE use in the home. PT demonstrated set -up and use and patient demonstrated good understanding and was issued pump for home use. Appears will need to do more problem solving regarding compression garments as current ones don't seem to be maintaining his reduction adequately. Physical Therapy Plan Frequency and Duration Frequency of Treatment 20 Duration of treatment (weeks) 12 Plan of Care Start Date 01/10/24 Plan of Care End Date 04/09/24 Therapeutic Interventions Therapeutic Interventions Lymphedema Management,Manual Therapy,Patient/Caregiver Education,Self-Care/Home Management,Soft Tissue Mobilization,Therapeutic Activities,Therapeutic Exercises Modalities Vasopneumatic Devices Next Visit Focus/Plan Next Note Type Treatment Note Next Visit Plan Further assess fit and other options for compression stockings as current ones don' t seem to be adequate.
--- NOTE | 2024-03-20 09:55 | PT.OTN ---
Current Diagnoses Lymphedema, not elsewhere classified (03/20/24) Difficulty in walking, not elsewhere classified (03/20/24) Physical Therapy Treatment Note PT-OP-A Visit Information Start: 01/10/24 08:07 Freq: Status: Active Protocol: Document 03/20/24 08:56 [facility] (Rec: 03/20/24 09:35 [facility] [id number]) Out-Patient Physical Therapy Visit Information Visit Information Visit Type Treatment Note Visit Start Time 08:56 Visit Number 12 Evaluation Information Evaluation Date 01/10/24 PT-OP-B Current Condition Start: 01/10/24 08:07 Freq: Status: Active Protocol: Document 03/20/24 08:56 [facility] (Rec: 03/20/24 09:35 [facility] [id number]) Current Condition History of Current Condition Onset Date 2 years Current Complaints cyndee LE swelling knees down History of Current Condition Legs gradual onset of swelling , no known reason. States his legs were already a bit swollen and then he bumped his leg on bed large wound opened up which turned into massive wounds on legs left greater than right. Right side currently closed up, wound on left leg almost completely closed. No previous treatment for lymphedema. Spends a lot of time sitting. 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 Has gained a lot of weight past 5 years after shoulder injury with 2 surgeries. Prior Treatments and Tests current wound care using Coban wraps 1x/wk due to LE wounds PT-OP-C Subjective Start: 01/10/24 08:07 Freq: Status: Active Protocol: Document 03/20/24 08:56 [facility] (Rec: 03/20/24 09:35 [facility] [id number]) OP-PT Subjective Patient Comments Patient Comments Wounds cyndee LE's not healing, being put on another round of antibiotics. Not pleased with compression stockings; doesn' t feel maintaining. He likes the pump, feels helpful. Has been working extremely long hours, more time sitting with legs down. Has lost about 5 lbs last 2 weeks. Has been playing phone tag with [email or web address] [employer] [facility] regarding potential need for different compression stockings Patient Reported Progress Improving PT-OP-J Posture/Palpation/Skin Start: 01/10/24 08:07 Freq: Status: Active Protocol: Document 01/10/24 09:02 [facility] (Rec: 01/10/24 16:10 [facility] [id number]) Palpation Assessment Location cyndee LE's Palpation Findings Edema Palpation Details no increased warmth Skin Assessment Edema Assessment cyndee lower legs Edema Appearance Discolored,Puffy Subjective Edema Description Pain Comments dry, scaly skin especially on toes, heels. PT-OP-K Range of Motion Start: 01/10/24 08:07 Freq: Status: Active Protocol: Document 01/10/24 09:02 [facility] (Rec: 01/10/24 16:10 [facility] [id number]) Hip Goniometric Range of Motion Hip cyndee Hip ROM WFL Yes Knee Goniometric Range of Motion Knee cyndee Knee ROM WFL Yes Ankle and Foot Goniometric Range of Motion Ankle and Foot cyndee Dorsiflexion with Knee Flexed 5 Dorsiflexion with Knee Extended 0 PT-OP-N Lymphedema Start: 01/10/24 08:07 Freq: Status: Active Protocol: Document 03/20/24 08:56 [facility] (Rec: 03/20/24 09:35 [facility] [id number]) Lymphedema Measurements Lower Extremity Circumference Measurements Right Affected MT Heads 30.3 cm Mid-foot 30.6 cm Medial Malleolus 41.8 cm 10 cm From Medial Malleolus 47 cm 20 cm From Medial Malleolus 55.2 cm 30 cm From Medial Malleolus 59.5 cm 40 cm From Medial Malleolus 52.5 cm 50 cm From Medial Malleolus 58.5 cm 60 cm From Medial Malleolus 70.5 cm 70 cm From Medial Malleolus 81 cm Knee Joint 58.5 cm Left Affected MT Heads 29.3 cm Mid-foot 30.7 cm Medial Malleolus 41.9 cm 10 cm From Medial Malleolus 48.6 cm 20 cm From Medial Malleolus 56.5 cm 30 cm From Medial Malleolus 58.4 cm 40 cm From Medial Malleolus 51.4 cm 50 cm From Medial Malleolus 63.7 cm 60 cm From Medial Malleolus 73.3 cm 70 cm From Medial Malleolus 82.4 cm Knee Joint 63.7 cm PT-OP-Q Treatments Start: 01/10/24 08:07 Freq: Status: Active Protocol: Document 03/20/24 08:56 [facility] (Rec: 03/20/24 09:51 [facility] [id number]) Cardio Equipment Recumbent Stepper (Sci-Fit) Duration (Minutes) 10 Resistance 2 Seat Position 14 Therapeutic Exercises Supine Exercises abdominal sets Reps/Minutes 10x2 glut sets Reps/Minutes 10x2 Lymphedema Treatment Manual Lymphatic Drainage Location for cyndee LE lymphedema Comments AIA pathways Lymphedema Wrapping Body Location cyndee lower legs toes to thighs Materials Size G Tricofix, 4 rolls ARtiflex, 6 rolls Comprilan 6 8x2, 10x2, 12 with Komprex kidneys right ankles and doubled wright foam left ankles Other application of Cetaphil lotion cyndee LE's PT-OP-T Assessment and Plan Start: 01/10/24 08:07 Freq: Status: Active Protocol: Document 03/20/24 08:56 [facility] (Rec: 03/20/24 09:35 [facility] [id number]) Physical Therapy Assessment Goals Three Impairment difficulty walking due to weight of legs Livery Car Driver Goal (LTG) Patient will be able to resume taking walks of at least 30 min without difficulty LTG Duration 04/09/24 Two Impairment activity tolerance Impairment lymphedema life impact scale 61% Short Term Goal (STG) Decrease lymphedema life impact scale to no greater than 40% STG Duration 02/27/24 Mcfp Goal (LTG) Decrease lymphedema life impact scale to no greater than 20% as measure of improved activity tolerance and quality of life LTG Duration 04/09/24 One Impairment lymphedema cyndee LE's Short Term Goal (STG) Patient will be instructed in all aspects of lymphedema self -care to include skin care, elevation, self-massage, self- bandaging/compression options, and lymphedema exercises. STG Duration 02/27/24 [facility]fp Goal (LTG) Decrease patient?s lymphedema to a stable level (no increase or decrease greater than 1 cm over the course of 1 week), patient to be independent with all aspects of self-care for lymphedema, and will obtain appropriate compression garment for lymphedema management in the home. LTG Duration 04/09/24 Assessment Summary Assessment Circumferential measurements increased since last seen, compression stockings dont seem to be maintaining reduction in circumference. Patient has been trying to contact fitter regarding possible need for different compression stockings. Patient advised to return to bandaging at this time to try to get maximal reduction prior to any further measuring with fitter. Physical Therapy Plan Frequency and Duration Frequency of Treatment 20 Duration of treatment (weeks) 12 Plan of Care Start Date 01/10/24 Plan of Care End Date 04/09/24 Therapeutic Interventions Therapeutic Interventions Lymphedema Management,Manual Therapy,Patient/Caregiver Education,Self-Care/Home Management,Soft Tissue Mobilization,Therapeutic Activities,Therapeutic Exercises Modalities Vasopneumatic Devices Next Visit Focus/Plan Next Note Type Treatment Note Next Visit Plan Continue CDT
--- NOTE | 2024-03-21 16:18 | PT.OTN ---
Current Diagnoses Lymphedema, not elsewhere classified (03/21/24) Difficulty in walking, not elsewhere classified (03/21/24) Physical Therapy Treatment Note PT-OP-A Visit Information Start: 01/10/24 08:07 Freq: Status: Active Protocol: Document 03/21/24 13:52 [facility] (Rec: 03/21/24 14:25 [facility] [id number]) Out-Patient Physical Therapy Visit Information Visit Information Visit Type Treatment Note Visit Start Time 13:52 Visit Stop Time 15:17 Visit Number 13 Evaluation Information Evaluation Date 01/10/24 PT-OP-B Current Condition Start: 01/10/24 08:07 Freq: Status: Active Protocol: Document 03/21/24 13:52 [facility] (Rec: 03/21/24 14:25 [facility] [id number]) Current Condition History of Current Condition Onset Date 2 years Current Complaints cyndee LE swelling knees down History of Current Condition Legs gradual onset of swelling , no known reason. States his legs were already a bit swollen and then he bumped his leg on bed large wound opened up which turned into massive wounds on legs left greater than right. Right side currently closed up, wound on left leg almost completely closed. No previous treatment for lymphedema. Spends a lot of time sitting. 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 Has gained a lot of weight past 5 years after shoulder injury with 2 surgeries. Prior Treatments and Tests current wound care using Coban wraps 1x/wk due to LE wounds PT-OP-C Subjective Start: 01/10/24 08:07 Freq: Status: Active Protocol: Document 03/21/24 13:52 [facility] (Rec: 03/21/24 14:25 [facility] [id number]) OP-PT Subjective Patient Comments Patient Comments Back on antibiotics. Doesn't feel bandaging helped as much last night due to infection. Trying to exercise more, get up from work chair more often . PT-OP-J Posture/Palpation/Skin Start: 01/10/24 08:07 Freq: Status: Active Protocol: Document 01/10/24 09:02 [facility] (Rec: 01/10/24 16:10 [facility] [id number]) Palpation Assessment Location cyndee LE's Palpation Findings Edema Palpation Details no increased warmth Skin Assessment Edema Assessment cyndee lower legs Edema Appearance Discolored,Puffy Subjective Edema Description Pain Comments dry, scaly skin especially on toes, heels. PT-OP-K Range of Motion Start: 01/10/24 08:07 Freq: Status: Active Protocol: Document 01/10/24 09:02 [facility] (Rec: 01/10/24 16:10 [facility] [id number]) Hip Goniometric Range of Motion Hip cyndee Hip ROM WFL Yes Knee Goniometric Range of Motion Knee cyndee Knee ROM WFL Yes Ankle and Foot Goniometric Range of Motion Ankle and Foot cyndee Dorsiflexion with Knee Flexed 5 Dorsiflexion with Knee Extended 0 PT-OP-N Lymphedema Start: 01/10/24 08:07 Freq: Status: Active Protocol: Document 03/21/24 13:52 [facility] (Rec: 03/21/24 16:18 [facility] [id number]) Lymphedema Measurements Lower Extremity Circumference Measurements Right Affected - not measured today PT-OP-Q Treatments Start: 01/10/24 08:07 Freq: Status: Active Protocol: Document 03/21/24 13:52 [facility] (Rec: 03/21/24 16:18 [facility] [id number]) Cardio Equipment Recumbent Stepper (Sci-Fit) Duration (Minutes) 10 Resistance 2 Seat Position 14 Therapeutic Exercises Supine Exercises abdominal sets Reps/Minutes 10x2 glut sets Reps/Minutes 10x2 Lymphedema Treatment Manual Lymphatic Drainage Location for cyndee LE lymphedema Comments AIA pathways Lymphedema Wrapping Body Location cyndee lower legs toes to thighs Materials Size G Tricofix, 4 rolls ARtiflex, 6 rolls Comprilan 6 8x2, 10x2, 12 with Komprex kidneys right ankles and doubled wright foam left ankles Other application of Cetaphil lotion cyndee LE's Sequential Lymphedema Exercises Comments Sci-Fit as above, reviewed HEP including importance of trunk rotation Patient Education Compression Garments discussion options including layering PT-OP-T Assessment and Plan Start: 01/10/24 08:07 Freq: Status: Active Protocol: Document 03/21/24 13:52 [facility] (Rec: 03/21/24 14:25 [facility] [id number]) Physical Therapy Assessment Goals Three Impairment difficulty walking due to weight of legs Penitentiary Goal (LTG) Patient will be able to resume taking walks of at least 30 min without difficulty 03/21/24: goal progress LTG Duration 04/09/24 Two Impairment activity tolerance Impairment lymphedema life impact scale 61% Short Term Goal (STG) Decrease lymphedema life impact scale to no greater than 40% 03/21/24: goal progress STG Duration 02/27/24 Kitchen Manager Goal (LTG) Decrease lymphedema life impact scale to no greater than 20% as measure of improved activity tolerance and quality of life LTG Duration 04/09/24 One Impairment lymphedema cyndee LE's Short Term Goal (STG) Patient will be instructed in all aspects of lymphedema self -care to include skin care, elevation, self-massage, self- bandaging/compression options, and lymphedema exercises. STG Duration goal met Kitchen Manager Goal (LTG) Decrease patient?s lymphedema to a stable level (no increase or decrease greater than 1 cm over the course of 1 week), patient to be independent with all aspects of self-care for lymphedema, and will obtain appropriate compression garment for lymphedema management in the home. LTG Duration 04/09/24 Assessment Summary Assessment Min change in circumfrential measurements, likely due to infection, patient on another round of antibiotics, can't remember the name. Talked with fitter, now has 2 pairs of compression, may try bandaging over the top for layering effect during day, bandage at night. If able to be reduced further will order another set of bandages. Physical Therapy Plan Frequency and Duration Frequency of Treatment 20 Duration of treatment (weeks) 12 Plan of Care Start Date 01/10/24 Plan of Care End Date 04/09/24 Therapeutic Interventions Therapeutic Interventions Lymphedema Management,Manual Therapy,Patient/Caregiver Education,Self-Care/Home Management,Soft Tissue Mobilization,Therapeutic Activities,Therapeutic Exercises Modalities Vasopneumatic Devices Next Visit Focus/Plan Next Note Type Treatment Note Next Visit Plan Continue CDT, reduce further for improved health of legs and ability to fit into smaller compression garments.
--- NOTE | 2024-03-27 10:15 | PT-OP ANOTE ---
cancelled due to work conflict
--- NOTE | 2024-04-04 16:36 | PT.OTRE ---
Current Diagnoses Lymphedema, not elsewhere classified (04/04/24) Difficulty in walking, not elsewhere classified (04/04/24) Past Medical History (Last Updated 11/13/23 @ 23:04 by Chelle Morel MD) Lymphedema Shoulder pain Surgical History (Last Reviewed 04/22/21 @ 02:13 by Onel Woodruff MD) Hx of cholecystectomy Visit Care Team Role Provider Type BOZENA Nunes-Eddie Family Provider Non-Staff Primary Care Provider Specialty: Family Practice Address: [address] [place] [address], [id number] Email: Lamar Garcia PA-C Attending Provider Advanced Console Operator Referring Provider Specialty: Medical Wound Care Address: [address] [place] [address], [id number] Email: [email or web address] Physical Therapy Re-Evaluation PT-OP-A Visit Information Start: 01/10/24 08:07 Freq: Status: Active Protocol: Document 04/04/24 13:01 [facility] (Rec: 04/04/24 13:32 [facility] [id number]) Out-Patient Physical Therapy Visit Information Visit Information Visit Type Treatment Note Visit Start Time 13:03 Visit Stop Time 14:30 Visit Number 14 Evaluation Information Evaluation Date 01/10/24 PT-OP-B Current Condition Start: 01/10/24 08:07 Freq: Status: Active Protocol: Document 04/04/24 13:01 [facility] (Rec: 04/04/24 13:32 [facility] [id number]) Current Condition History of Current Condition Onset Date 2 years Current Complaints cyndee LE swelling knees down History of Current Condition Legs gradual onset of swelling , no known reason. States his legs were already a bit swollen and then he bumped his leg on bed large wound opened up which turned into massive wounds on legs left greater than right. Right side currently closed up, wound on left leg almost completely closed. No previous treatment for lymphedema. Spends a lot of time sitting. 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 Has gained a lot of weight past 5 years after shoulder injury with 2 surgeries. Prior Treatments and Tests current wound care using Coban wraps 1x/wk due to LE wounds PT-OP-C Subjective Start: 01/10/24 08:07 Freq: Status: Active Protocol: Document 04/04/24 13:01 [facility] (Rec: 04/04/24 13:32 [facility] [id number]) OP-PT Subjective Patient Comments Patient Comments Patient reports legs about the same has been trying to bandage but sometimes too busy . with work. Has been exercising more. Reports has consulted with [facility] regarding compression garments . Done with antibiotics for infection. Sees wound care again on Tuesday. After bandaging at home some smaller . If not bandaging wears compression stockings. Uses pump end of day. Shoes are loosest they have felt PT-OP-J Posture/Palpation/Skin Start: 01/10/24 08:07 Freq: Status: Active Protocol: Document 01/10/24 09:02 [facility] (Rec: 01/10/24 16:10 [facility] [id number]) Palpation Assessment Location cyndee LE's Palpation Findings Edema Palpation Details no increased warmth Skin Assessment Edema Assessment cyndee lower legs Edema Appearance Discolored,Puffy Subjective Edema Description Pain Comments dry, scaly skin especially on toes, heels. PT-OP-K Range of Motion Start: 01/10/24 08:07 Freq: Status: Active Protocol: Document 01/10/24 09:02 [facility] (Rec: 01/10/24 16:10 [facility] [id number]) Hip Goniometric Range of Motion Hip Measured in Degrees cyndee Hip ROM WFL Yes Knee Goniometric Range of Motion Knee Measured in Degrees cyndee Knee ROM WFL Yes Ankle and Foot Goniometric Range of Motion Ankle and Foot Measured in Degrees cyndee Dorsiflexion with Knee Flexed 5 Dorsiflexion with Knee Extended 0 PT-OP-N Lymphedema Start: 01/10/24 08:07 Freq: Status: Active Protocol: Document 04/04/24 13:01 [facility] (Rec: 04/04/24 13:32 [facility] [id number]) Lymphedema Measurements Lower Extremity Circumference Measurements Right Affected MT Heads 29.2 cm Mid-foot 30.2 cm Medial Malleolus 41 cm 10 cm From Medial Malleolus 46 cm 20 cm From Medial Malleolus 55.6 cm 30 cm From Medial Malleolus 60 cm 40 cm From Medial Malleolus 56.1 cm 50 cm From Medial Malleolus 62.5 cm 60 cm From Medial Malleolus 70 cm 70 cm From Medial Malleolus 80.1 cm Knee Joint 62.5 cm Left Affected MT Heads 29.7 cm Mid-foot 31.3 cm Medial Malleolus 44 cm 10 cm From Medial Malleolus 48.6 cm 20 cm From Medial Malleolus 55.3 cm 30 cm From Medial Malleolus 58.9 cm 40 cm From Medial Malleolus 53 cm 50 cm From Medial Malleolus 62.5 cm 60 cm From Medial Malleolus 72 cm 70 cm From Medial Malleolus 81.9 cm Knee Joint 58 cm - over bandage at malleolus PT-OP-Q Treatments Start: 01/10/24 08:07 Freq: Status: Active Protocol: Document 04/04/24 13:01 [facility] (Rec: 04/04/24 13:33 [facility] [id number]) Cardio Equipment Recumbent Stepper (Sci-Fit) Duration (Minutes) 10 Resistance 2 Seat Position 14 Therapeutic Exercises Supine Exercises abdominal sets Reps/Minutes 10x2 glut sets Reps/Minutes 10x2 Lymphedema Treatment Manual Lymphatic Drainage Location for cyndee LE lymphedema Comments AIA pathways Lymphedema Wrapping Body Location cyndee lower legs toes to thighs Materials Size G Tricofix, 4 rolls ARtiflex, 6 rolls Comprilan 6 8x2, 10x2, 12 with Komprex kidneys right ankles and doubled wright foam left ankles Other application of Cetaphil lotion cyndee LE's Sequential Lymphedema Exercises Comments Sci-Fit as above, Patient Education Compression Garments patient verbalized hasn't yet tried layering or bandaging over compression Other Other instructed use of Komprex kidneys at ankles inside pump and compression stockings. PT-OP-T Assessment and Plan Start: 01/10/24 08:07 Freq: Status: Active Protocol: Document 04/04/24 13:01 [facility] (Rec: 04/04/24 13:32 [facility] [id number]) Physical Therapy Assessment Goals Three Impairment difficulty walking due to weight of legs Employee Representative Goal (LTG) Patient will be able to resume taking walks of at least 30 min without difficulty 03/21/24: goal progress 04/04/24: goal met, uncomfortable by end of approx 40 min walk LTG Duration 04/04/24 Two Impairment activity tolerance Impairment lymphedema life impact scale 61% Short Term Goal (STG) Decrease lymphedema life impact scale to no greater than 40% 03/21/24: goal progress 04/04/24: decreased to 53% STG Duration 02/27/24 Longterm Goal (LTG) Decrease lymphedema life impact scale to no greater than 20% as measure of improved activity tolerance and quality of life LTG Duration 07/05/24 One Impairment lymphedema cyndee LE's Short Term Goal (STG) Patient will be instructed in all aspects of lymphedema self -care to include skin care, elevation, self-massage, self- bandaging/compression options, and lymphedema exercises. STG Duration goal met Longterm Goal (LTG) Decrease patient?s lymphedema to a stable level (no increase or decrease greater than 1 cm over the course of 1 week), patient to be independent with all aspects of self-care for lymphedema, and will obtain appropriate compression garment for lymphedema management in the home. 04/04/24: goal progress LTG Duration 07/05/24 Assessment Summary Assessment variability in circumferential measurements, difficulty for patient to be fully compliant with self care, Patient has made progress toward goals, bandaging legs or wearing compression garment but still having challenged with managing his lymphedema. He has obtained sequential pneumatic pumpis using pump daily and always has some compression on during the day, though not always bandaging at night. Wounds persist, sees wound care on Tuesday. Recommend continued skilled PT for Complete Decongestive therapy due to patient continued difficulty with self management. Feel he may need different compression garment , have discussed layering of fompression which patient will try. Feel patient long, seated work hours with legs dependent position highly contributory to his lymphedema . He tries to move more during his work day but his work is all online. He may benefit from workstation which would allow him to elevate his legs due to high risk for continued challenges with infections and edema. Physical Therapy Plan Frequency and Duration Frequency of Treatment 20 Duration of treatment (weeks) 12 Plan of Care Start Date 04/04/24 Plan of Care End Date 07/05/24 Therapeutic Interventions Therapeutic Interventions Lymphedema Management,Manual Therapy,Patient/Caregiver Education,Self-Care/Home Management,Soft Tissue Mobilization,Therapeutic Activities,Therapeutic Exercises Modalities Vasopneumatic Devices Next Visit Focus/Plan Next Note Type Treatment Note Next Visit Plan Continue CDT, reduce further for improved health of legs and ability to fit into smaller compression garments.
--- NOTE | 2024-04-04 16:36 | PT.OPPOC ---
Physical, Occupational & Speech Therapy At [facility] Current Diagnoses Lymphedema, not elsewhere classified (04/04/24) Difficulty in walking, not elsewhere classified (04/04/24) Visit Care Team Role Provider Type MERLYN Nunes Family Provider Non-Staff Primary Care Provider Specialty: Family Practice Address: [address] [place] [address], [place], [address] Email: Lamar Garcia PA-C Attending Provider Advanced Decision Support Analyst Referring Provider Specialty: Medical Wound Care Address: [address] [place] [address], [address] Email: [email or web address] Plan Of Care PT-OP-T Assessment and Plan Start: 01/10/24 08:07 Freq: Status: Active Protocol: Document 04/04/24 13:01 [facility] (Rec: 04/04/24 13:32 [facility] [id number]) Physical Therapy Assessment Goals Three Impairment difficulty walking due to weight of legs Hotel Attendant Goal (LTG) Patient will be able to resume taking walks of at least 30 min without difficulty 03/21/24: goal progress 04/04/24: goal met, uncomfortable by end of approx 40 min walk LTG Duration 04/04/24 Two Impairment activity tolerance Impairment lymphedema life impact scale 61% Short Term Goal (STG) Decrease lymphedema life impact scale to no greater than 40% 03/21/24: goal progress 04/04/24: decreased to 53% STG Duration 02/27/24 [facility] Goal (LTG) Decrease lymphedema life impact scale to no greater than 20% as measure of improved activity tolerance and quality of life LTG Duration 07/05/24 One Impairment lymphedema cyndee LE's Short Term Goal (STG) Patient will be instructed in all aspects of lymphedema self -care to include skin care, elevation, self-massage, self- bandaging/compression options, and lymphedema exercises. STG Duration goal met Hotel Attendant Goal (LTG) Decrease patient?s lymphedema to a stable level (no increase or decrease greater than 1 cm over the course of 1 week), patient to be independent with all aspects of self-care for lymphedema, and will obtain appropriate compression garment for lymphedema management in the home. 04/04/24: goal progress LTG Duration 07/05/24 Assessment Summary Assessment variability in circumferential measurements, difficulty for patient to be fully compliant with self care, Patient has made progress toward goals, bandaging legs or wearing compression garment but still having challenged with managing his lymphedema. He has obtained sequential pneumatic pumpis using pump daily and always has some compression on during the day, though not always bandaging at night. Wounds persist, sees wound care on Tuesday. Recommend continued skilled PT for Complete Decongestive therapy due to patient continued difficulty with self management. Feel he may need different compression garment , have discussed layering of fompression which patient will try. Feel patient long, seated work hours with legs dependent position highly contributory to his lymphedema . He tries to move more during his work day but his work is all online. He may benefit from workstation which would allow him to elevate his legs due to high risk for continued challenges with infections and edema. Physical Therapy Plan Frequency and Duration Frequency of Treatment 20 Duration of treatment (weeks) 12 Plan of Care Start Date 04/04/24 Plan of Care End Date 07/05/24 Therapeutic Interventions Therapeutic Interventions Lymphedema Management,Manual Therapy,Patient/Caregiver Education,Self-Care/Home Management,Soft Tissue Mobilization,Therapeutic Activities,Therapeutic Exercises Modalities Vasopneumatic Devices Next Visit Focus/Plan Next Note Type Treatment Note Next Visit Plan Continue CDT, reduce further for improved health of legs and ability to fit into smaller compression garments. Plan of Care Dates Plan of Care Start Date 04/04/24 Plan of Care End Date 07/05/24 Electronically Signed by: Concepción Wright, PT 04/04/24 9659 If you are in agreement with this Plan of Care, please return a signed and dated copy. I have reviewed this Plan of Care and certify that the skilled therapy services above are required to meet the patient?s needs. Physician Signature Date Printed Name and Credentials Clinical Instructor Signature Printed Name and Credentials
--- NOTE | 2024-08-30 12:01 | PT.OPDS ---
Current Diagnoses Lymphedema, not elsewhere classified (04/04/24) Difficulty in walking, not elsewhere classified (04/04/24) Visit Care Team Role Provider Type MERLYN Nunes Family Provider Non-Staff Primary Care Provider Specialty: Family Practice Address: [address], [place], [address] Email: Lamar Garcia PA-C Attending Provider [employer] Sergeant Referring Provider Specialty: Medical Wound Care Address: [address] [place] [address], [address] Email: [email or web address] Visit Number Visit Number 14 Discharge Summary PT-OP-B Current Condition Start: 01/10/24 08:07 Freq: Status: Active Protocol: Document 04/04/24 13:01 [facility] (Rec: 04/04/24 13:32 [facility] [id number]) Current Condition History of Current Condition Onset Date 2 years Current Complaints cyndee LE swelling knees down History of Current Condition Legs gradual onset of swelling , no known reason. States his legs were already a bit swollen and then he bumped his leg on bed large wound opened up which turned into massive wounds on legs left greater than right. Right side currently closed up, wound on left leg almost completely closed. No previous treatment for lymphedema. Spends a lot of time sitting. 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 Has gained a lot of weight past 5 years after shoulder injury with 2 surgeries. Prior Treatments and Tests current wound care using Coban wraps 1x/wk due to LE wounds PT-OP-C Subjective Start: 01/10/24 08:07 Freq: Status: Active Protocol: Document 04/04/24 13:01 [facility] (Rec: 04/04/24 13:32 [facility] [id number]) OP-PT Subjective Patient Comments Patient Comments Patient reports legs about the same has been trying to bandage but sometimes too busy . with work. Has been exercising more. Reports has consulted with [facility] regarding compression garments . Done with antibiotics for infection. Sees wound care again on Tuesday. After bandaging at home some smaller . If not bandaging wears compression stockings. Uses pump end of day. Shoes are loosest they have felt PT-OP-J Posture/Palpation/Skin Start: 01/10/24 08:07 Freq: Status: Active Protocol: Document 01/10/24 09:02 [facility] (Rec: 01/10/24 16:10 [facility] [id number]) Palpation Assessment Location cyndee LE's Palpation Findings Edema Palpation Details no increased warmth Skin Assessment Edema Assessment cyndee lower legs Edema Appearance Discolored,Puffy Subjective Edema Description Pain Comments dry, scaly skin especially on toes, heels. PT-OP-K Range of Motion Start: 01/10/24 08:07 Freq: Status: Active Protocol: Document 01/10/24 09:02 [facility] (Rec: 01/10/24 16:10 [facility] [id number]) Hip Goniometric Range of Motion Hip cyndee Hip ROM WFL Yes Knee Goniometric Range of Motion Knee cyndee Knee ROM WFL Yes Ankle and Foot Goniometric Range of Motion Ankle and Foot cyndee Dorsiflexion with Knee Flexed 5 Dorsiflexion with Knee Extended 0 PT-OP-N Lymphedema Start: 01/10/24 08:07 Freq: Status: Active Protocol: Document 04/04/24 13:01 [facility] (Rec: 04/04/24 13:32 [facility] [id number]) Lymphedema Measurements Lower Extremity Circumference Measurements Right Affected MT Heads 29.2 cm Mid-foot 30.2 cm Medial Malleolus 41 cm 10 cm From Medial Malleolus 46 cm 20 cm From Medial Malleolus 55.6 cm 30 cm From Medial Malleolus 60 cm 40 cm From Medial Malleolus 56.1 cm 50 cm From Medial Malleolus 62.5 cm 60 cm From Medial Malleolus 70 cm 70 cm From Medial Malleolus 80.1 cm Knee Joint 62.5 cm Left Affected MT Heads 29.7 cm Mid-foot 31.3 cm Medial Malleolus 44 cm 10 cm From Medial Malleolus 48.6 cm 20 cm From Medial Malleolus 55.3 cm 30 cm From Medial Malleolus 58.9 cm 40 cm From Medial Malleolus 53 cm 50 cm From Medial Malleolus 62.5 cm 60 cm From Medial Malleolus 72 cm 70 cm From Medial Malleolus 81.9 cm Knee Joint 58 cm - over bandage at malleolus PT-OP-T Assessment and Plan Start: 01/10/24 08:07 Freq: Status: Active Protocol: Document 08/30/24 12:00 [facility] (Rec: 08/30/24 12:00 [facility] [id number]) Physical Therapy Plan Discharge Physical Therapy Discharge Reasons No Longer Attending PT
== END 2024-08-30 14:05 | disposition home or self-care (01) ==
LOC: PHYS 13:00
PROVIDERS: Family Provider Registered Nurse; PCP Registered Nurse; Referring Provider Physician Assistant; Visit Provider Physician Assistant
DX: I89.0 Lymphedema, not elsewhere classified (principal); R26.2 Difficulty in walking, not elsewhere classified
CPT/HCPCS: 29581; 97016; 97110; 97140; 97162; 97535

== ENCOUNTER → 2024-04-09 14:56 | Outpatient (CLI) | payer BC, SELFPAY ==
[2021-04-22 00:01] VITALS: BMI 42.9
== END ==
LOC: WC 14:57
PROVIDERS: Family Provider Registered Nurse; PCP Registered Nurse; Referring Provider Emergency Medicine; Visit Provider Surgery
DX: L97.822 Non-pressure chronic ulcer of other part of left lower leg with fat layer exposed (principal); I89.0 Lymphedema, not elsewhere classified
CPT/HCPCS: 11042; 99213

== ENCOUNTER 2024-05-07 05:16 | Emergency (ER) | payer BC, SELFPAY ==
[2021-04-22 00:01] VITALS: BMI 42.9
--- NOTE | 2024-05-07 05:23 | DI.CT.S_ITS ---
PROCEDURE: CT KIDNEY URETER BLADDER (KUB) INDICATIONS: L FLANK PAIN TECHNIQUE: Axial sections were acquired from the lung bases to the pubic symphysis. Coronal and sagittal reformats were performed. For radiation dose reduction, the following was used: automated exposure control, adjustment of mA and/or kV according to patient size. COMPARISON: None. FINDINGS: Image quality: Diagnostic. Lower Chest: No significant findings. URINARY: Right Kidney: No hydronephrosis. Punctate nonobstructing kidney stone. Right Ureter: No hydroureter. Left Kidney: No definite stones or hydronephrosis. Left Ureter: No hydroureter. Calculus passing through the left UVJ measuring 0.2 cm, (2/90). Bladder: Normal wall thickness. No stones. ABDOMEN: Liver: No contour-deforming solid mass. Possible hepatic steatosis. Gallbladder: Absent. Biliary ducts: No biliary dilation. Pancreas: No ductal dilation. Spleen: Size is within normal limits. Adrenal Glands: No adrenal nodules. Stomach and Bowel: Normal colonic caliber, without significant wall thickening. Normal appendix. Peritoneum: No abnormal intraperitoneal fluid. No free air. Ventral Wall: No hernia. Abdominal Nodes: No enlarged retroperitoneal or mesenteric lymph nodes. Vessels: Aorta and inferior vena cava are normal in size. PELVIS: Pelvic Organs: Unremarkable. Pelvic Nodes: Prominent groin lymph nodes. Miscellaneous: No definite inguinal hernias are seen. Heterotopic calcification in the anterior intramuscular thigh. Trace flank and lumbar subcutaneous edema. Bones: No suspicious osseous lesion. IMPRESSION: 1. Calculus passing through the left UVJ measuring 0.2 cm. No left hydronephrosis or hydroureter. 2. Punctate nonobstructing right kidney stone. 3. Prominent groin lymph nodes This report is concordant with the overnight preliminary interpretation. Dictated by: Nima Granados M.D. on 05/07/2024 at 8:09 Approved by: Nima Granados M.D. on 05/07/2024 at 8:19
[2024-05-07 05:24] VITALS: BP 181/88; PULSE 88; RESP 16; TEMP 36.3; O2SAT 98; BMI 49.8
--- NOTE | 2024-05-07 05:26 | ED.BACK ---
HPI - Back Pain/Injury General Chief Complaint: Back Pain/Injury Stated Complaint: pain in lower left back, pain in groin Time Seen by Provider: 05/07/24 05:19 History of Present Illness HPI Narrative: 28-year-old male with history of lymphedema presents for left-sided flank pain that radiates upwards into his back and into his groin. Symptoms began abruptly 30 minutes ago and has been constant since onset. He was never experienced pain similar to this before. Took ibuprofen 3 hours ago for an unrelated issue, no other medications taken prior to arrival. Related Data Previous Rx's Medication Instructions Recorded epinephrine 0.3 mg/0.3 mL 0.3 mg (0.3 mL) IM Q5-15M PRN 04/22/21 injection, auto-injector anaphylaxis #2 ea doxycycline hyclate 100 mg capsule 100 mg PO BID #20 caps 11/14/23 tamsulosin 0.4 mg capsule (Flomax) 0.4 mg PO BEDTIME #30 caps 05/07/24 Allergies Allergy/AdvReac Type Severity Reaction Status Date / Time cefazolin Allergy Severe Anaphylaxis Verified 04/21/21 22:03 bacitracin AdvReac Mild Rash Verified 12/18/18 10:55 [From Neosporin ([id number])] neomycin AdvReac Mild Rash Verified 12/18/18 10:55 [From Neosporin ([id number])] polymyxin B AdvReac Mild Rash Verified 12/18/18 10:55 [From Neosporin ([id number])] Review of Systems Review of Systems Narrative: See HPI Patient History Medical History Lymphedema Shoulder pain Surgical History Hx of cholecystectomy Family History Grandfather Cancer Heart disease Social History household members: spouse and children Smoking Status: Current every day smoker Tobacco: How many years used: 10 alcohol intake: current substance use type: does not use Smoking Status: Current every day smoker alcohol intake frequency: holidays/special occasions only Substance Use Type: does not use Exam Narrative Exam Narrative: Const: Awake, alert, uncomfortable, in pain Cardiac: regular rate, regular rhythm RESP: unlabored, clear bilaterally, no wheezing GI: Soft, nontender, nondistended MSK back: Left-sided CVA tenderness to percussion, no midline tenderness Skin: Warm, Dry, intact, no rashes Neuro: AO x3, CN II-XII grossly intact, moves all extremities Initial Vital Signs Initial Vital Signs: Vital Signs Temperature 97.3 F L 05/07/24 05:24 Pulse Rate 88 05/07/24 05:24 Respiratory Rate 16 05/07/24 05:24 Blood Pressure 181/88 H 05/07/24 05:24 Pulse Oximetry 98 05/07/24 05:24 Oxygen Delivery Method Room Air 05/07/24 05:24 Course Orders Ordered: Discontinued Medications Sodium Chloride (Normal Saline 0.9%) 1,000 mls @ 1,000 mls/hr IV BOLUS ONE Stop: 05/07/24 06:22 Last Infusion: 05/07/24 07:20 Dose: Infused Documented By: Admin: 05/07/24 05:38 Dose: 1,000 mls/hr Documented By: RADHA Ketorolac Tromethamine (Ketorolac 30 Mg/Ml Vial) 15 mg IV NOW ONE Stop: 05/07/24 05:24 Last Admin: 05/07/24 05:36 Dose: 15 mg Documented By: RADHA Vital Signs Vital signs: Vital Signs - 8 hr 05/07/24 05:24 Temperature 97.3 F L Pulse Rate 88 Respiratory Rate 16 Blood Pressure 181/88 H Pulse Oximetry 98 Oxygen Delivery Method Room Air MDM - Back Pain/Injury Differential Diagnosis Differential diagnosis: Likely lumbar radiculopathy, sciatica and strain of lumbar region Lab Data 05/07/24 05:25 05/07/24 05:25 Labs: Lab Results 05/07/24 Range/Units 05:25 WBC 9.4 (4.5-11.0) X10^3/uL RBC 5.12 (4.5-5.9) X10^6/uL Hgb 14.8 (13.5-17.5) g/dL Hct 44.1 (41-53) % MCV 86.2 (80-100) fL MCH 29.0 (26-34) PG MCHC 33.7 (30-36) % RDW 14.8 (11.6-14.8) % Plt Count 261 (150-400) X10^3/uL Neut % (Auto) 50.0 (50-75) % Lymph % (Auto) 36.5 (25-40) % [place] % (Auto) 10.2 (3-14) % Eos % (Auto) 1.8 L (2-4) % Baso % (Auto) 1.5 (0-2) % Neut # (Auto) 4700 (0472-6441) /uL Lymph # (Auto) 3400 (0621-0158) /uL [place] # (Auto) 1000 H (0-900) /uL Eos # (Auto) 200 (0-450) /uL Baso # (Auto) 100 (0-100) /uL Sodium 142 (137-145) mmol/L Potassium 3.8 (3.4-5.1) mmol/L Chloride 110 H (98-107) mmol/L Carbon Dioxide 28 (22-32) mmol/L BUN 13 (9-20) mg/dL Creatinine 0.90 (0.66-1.25) mg/dL Estimated GFR > 60 (>60) mL/min BUN/Creatinine Ratio 14.4 (6-22) Glucose 110 H (70-100) mg/dL Calcium 9.4 (8.4-10.2) mg/dL Total Bilirubin 0.4 (0.2-1.3) mg/dL AST 33 (17-59) IU/L ALT 50 H (<50) IU/L Alkaline Phosphatase 112 (38-126) U/L Total Protein 7.2 (6.3-8.2) g/dL Albumin 4.1 (3.5-5.0) g/dL Globulin 3.1 (1.7-4.1) g/dL Albumin/Globulin Ratio 1.3 (1.0-2.8) Urine Dip Bedside Urine Glucose Negative Bedside Urine Bilirubin - Negative Bedside Urine Ketone - Negative Urine Specific [place] 1.025 Bedside Urine Occult Blood +/- Bedside Urine pH 6.0 Bedside Urine Protein - Negative Bedside Urine Urobilinogen - Negative Bedside Urine Nitrite - Negative Bedside Urine Leukocytes - Negative Esterase Imaging Data CT scan - abdomen/pelvis: My Impression: PROCEDURE: CT KIDNEY URETER BLADDER (KUB) INDICATIONS: L FLANK PAIN TECHNIQUE: Axial sections were acquired from the lung bases to the pubic symphysis. Coronal and sagittal reformats were performed. For radiation dose reduction, the following was used: automated exposure control, adjustment of mA and/or kV according to patient size. COMPARISON: None. FINDINGS: Image quality: Diagnostic. Lower Chest: No significant findings. URINARY: Right Kidney: No hydronephrosis. Punctate nonobstructing kidney stone. Right Ureter: No hydroureter. Left Kidney: No definite stones or hydronephrosis. Left Ureter: No hydroureter. Calculus passing through the left UVJ measuring 0.2 cm, (2/90). Bladder: Normal wall thickness. No stones. ABDOMEN: Liver: No contour-deforming solid mass. Possible hepatic steatosis. Gallbladder: Absent. Biliary ducts: No biliary dilation. Pancreas: No ductal dilation. Spleen: Size is within normal limits. Adrenal Glands: No adrenal nodules. Stomach and Bowel: Normal colonic caliber, without significant wall thickening. Normal appendix. Peritoneum: No abnormal intraperitoneal fluid. No free air. Ventral Wall: No hernia. Abdominal Nodes: No enlarged retroperitoneal or mesenteric lymph nodes. Vessels: Aorta and inferior vena cava are normal in size. PELVIS: Pelvic Organs: Unremarkable. Pelvic Nodes: Prominent groin lymph nodes. Miscellaneous: No definite inguinal hernias are seen. Heterotopic calcification in the anterior intramuscular thigh. Trace flank and lumbar subcutaneous edema. Bones: No suspicious osseous lesion. IMPRESSION: 1. Calculus passing through the left UVJ measuring 0.2 cm. No left hydronephrosis or hydroureter. 2. Punctate nonobstructing right kidney stone. 3. Prominent groin lymph nodes This report is concordant with the overnight preliminary interpretation. Dictated by: Nima Granados M.D. on 05/07/2024 at 8:09 Approved by: Nima Granados M.D. on 05/07/2024 at 8:19 MDM Narrative Medical decision making narrative: Sudden onset left-sided flank pain with radiation into the groin and upper back. Consider lumbar strain, radiculopathy, renal colic. Medications for pain ordered, IV fluids ordered. CT ordered for assessment. Pain resolved with Toradol administration. CT shows small punctate calculus that appears to have already passed into the bladder. Renal function normal. Patient counseled on results, recommended urology follow up. Tylenol and ibuprofen recommended for pain. Started on Flomax. Discharge Plan Departure Patient Disposition: Home Clinical Impression: Renal colic Instructions: Kidney Stones -- Adult Activity Restrictions/Additional Instructions: Your CT scan today showed that you have a 1 mm kidney stone that should be either right about to pass or have just passed. Incidentally you had 2 enlarged lymph nodes in your groin. This could be related to your lymphedema, but I recommend close follow up with your primary care doctor. Take Tylenol and ibuprofen as needed for pain Prescriptions: New tamsulosin [Flomax] 0.4 mg capsule 0.4 mg PO BEDTIME Qty: 30 0RF No Action epinephrine 0.3 mg/0.3 mL auto-injector 0.3 mg IM Q5-15M PRN (Reason: anaphylaxis) Qty: 2 0RF Rx Instructions: do not exceed 3 doses per episode doxycycline hyclate 100 mg capsule 100 mg PO BID Qty: 20 0RF Referrals: Cornelia Haro FNP-C [Primary Care Provider] - Onel Toribio MD [Physician] - Stand Alone Forms: Patient Portal/API
[2024-05-07] MEDS: KETOROLAC 30 MG/ML VIAL 15 MG IV (05:36)
[2024-05-07] MEDS: SODIUM CHLORIDE 0.9% 1,000 ML 1000 ML IV (05:38)
[2024-05-07 05:42] LABS: Add Manual Diff / Slide Review NO; Basophils Absolute Auto 100 /uL (0-100); Basophils Percent Auto 1.5 % (0-2); Eosinophils Absolute Auto 200 /uL (0-450); Eosinophils Percent Auto 1.8 % (2-4); Hematocrit 44.1 % (41-53); Hemoglobin 14.8 g/dL (13.5-17.5); Lymphocytes Absolute Auto 3400 /uL (1100-4500); Lymphocytes Percent Auto 36.5 % (25-40); Mean Corpuscular HGB Conc 33.7 % (30-36); Mean Corpuscular Volume 86.2 fL (80-100); Monocytes Absolute Auto 1000 /uL (0-900); Monocytes Percent Auto 10.2 % (3-14); Neutrophils Absolute Auto 4700 /uL (1500-7000); Platelet Count 261 X10^3/uL (150-400); Red Blood Cell Count 5.12 X10^6/uL (4.5-5.9); Red Cell Distribution Width 14.8 % (11.6-14.8); White Blood Cell Count 9.4 X10^3/uL (4.5-11.0)
[2024-05-07 05:53] LABS: HEMOLYSIS < 15 (0-50); Potassium 3.8 mmol/L (3.4-5.1)
[2024-05-07 05:55] LABS: Albumin 4.1 g/dL (3.5-5.0); Albumin Globulin Ratio 1.3 (1.0-2.8); Alkaline Phosphatase 112 U/L (38-126); Aspartate Aminotransferase 33 IU/L (17-59); BUN Creatinine Ratio 14.4 (6-22); Bilirubin Total 0.4 mg/dL (0.2-1.3); Blood Urea Nitrogen 13 mg/dL (9-20); Carbon Dioxide 28 mmol/L (22-32); Chloride 110 mmol/L (98-107); Estimated Glomerular Filt Rate > 60 mL/min (>60); Globulin 3.1 g/dL (1.7-4.1); Glucose 110 mg/dL (70-100); Sodium 142 mmol/L (137-145); Total Protein 7.2 g/dL (6.3-8.2)
[2024-05-07 05:56] LABS: Alanine Aminotransferase 50 IU/L (<50); Calcium 9.4 mg/dL (8.4-10.2)
== END 2024-05-07 07:22 | disposition home or self-care (01) ==
PROVIDERS: Emergency Medicine; Emergency Provider Emergency Medicine; Family Provider Registered Nurse; PCP Registered Nurse
DX: N20.0 Calculus of kidney (principal)
CPT/HCPCS: 36415; 74176; 80053; 81003; 85025; 96374; 99284; J1885

== ENCOUNTER 2024-06-06 13:45 | Outpatient (RCR) | payer OTHER, SELFPAY ==
[2021-04-22 00:01] VITALS: BMI 42.9
--- NOTE | 2023-08-23 16:15 | PT.OIE ---
Current Diagnoses Pain in right shoulder (08/23/23) Bursitis of right shoulder (08/23/23) Strain of muscle(s) and tendon(s) of the rotator cuff of right shoulder, initial encounter (08/23/23) Strain of unspecified muscle, fascia and tendon at shoulder and upper arm level, right arm, initial encounter (08/23/23) Past Medical History (Last Reviewed 04/22/21 @ 02:13 by Onel Woodruff MD) Diarrhea Pedal edema Shoulder pain Past Surgical History (Last Reviewed 04/22/21 @ 02:13 by Onel Woodruff MD) Hx of cholecystectomy Visit Care Team Role Provider Type MERLYN Nunes Family Provider Non-Staff Primary Care Provider Specialty: Family Practice Address: [address] [place] [address], [id number] Email: Kvng Abernathy PA-C Attending Provider Non-Staff Referring Provider Specialty: Medical Address: [address] [place] [address], [phone] Phone: Email: Physical Therapy Initial Evaluation PT-OP-A Visit Information Start: 08/23/23 16:14 Freq: Status: Active Protocol: Document 08/23/23 16:15 AM (Rec: 08/23/23 17:36 AM [id number]) Out-Patient Physical Therapy Visit Information Visit Information Visit Type Initial Evaluation Visit Start Time 16:15 Visit Stop Time 17:00 Total Visit Minutes 45 Visit Number 1 PT-OP-B Current Condition Start: 08/23/23 16:14 Freq: Status: Active Protocol: Document 08/23/23 16:15 AM (Rec: 08/23/23 17:36 AM [id number]) Current Condition History of Current Condition Onset Date 07/06/23 Current Complaints R shoulder pain. History of Current Condition Pt had shoulder surgery on 07/06. Pt had a subacromial decompression/debridement with R shoulder arthroscopy, distal clavicle excision, biceps tenodesis. Pt was in a sling until the end of June. Pt reports previous R shoulder exploratory surgery in 2019. At that point he was having pain. Pt's initial injury was that he went to excelsior picker some boxes, felt it pop. Had numbness. Pt reports partial rotator cuff tear at that point. Pt just under 7 weeks out of surgery. Treatment Goals Patient/Caregiver Goals Pt reports I want to be able to use my R arm again and lift weights with it. Prior Functional Status Baseline Function- ADL's Independent Baseline Function- Mobility Independent Current Functional Impairments (Reported) Functional Limitations- ADL's Independent though uses L UE for most tasks. Pt is R handed PT-OP-C Subjective Start: 08/23/23 16:14 Freq: Status: Active Protocol: Document 08/23/23 16:15 AM (Rec: 08/23/23 17:36 AM [id number]) Patient Questionnaires Quick Dash- Upper Extremity Quick Dash UE Impairment 60 to 79% Impaired (Score 60- 79) OP-PT Pain Assessment Location R shoulder Pain Location Details Anterior and posterior pain Intensity 7 Scale Used Numeric (0 - 10) Description- Other Pt reports 9/10 at the worst. Frequency Constant Pain Aggravating Factors ADL's,Activity,Exercise, Lifting Pain Alleviating Factors Cold,Inactivity PT-OP-J Posture/Palpation/Skin Start: 08/23/23 16:14 Freq: Status: Active Protocol: Document 08/23/23 16:15 AM (Rec: 08/23/23 17:36 AM [id number]) Posture Evaluation Position Sitting Evaluation View Lateral Head/C-Spine Posture Forward Head Shoulder Posture (L) Forward,(R) Forward Scapula Posture (L) Protracted,(R) Protracted Skin Assessment Incisional Assessment Incision Appearance/Comments Incisions healed PT-OP-K Range of Motion Start: 08/23/23 16:14 Freq: Status: Active Protocol: Document 08/23/23 16:15 AM (Rec: 08/23/23 17:36 AM [id number]) Shoulder Goniometric Range of Motion Shoulder Right Passive Shoulder ROM WFL No Testing Position Supine Flexion 95 Abduction 92 External Rotation at 45 degrees 20 Abduction Comments IR to stomach in 45 deg abd Left Active Shoulder ROM WFL Yes Testing Position Sitting Flexion 145 Abduction 150 Internal Rotation Behind Back (text) T10 Comments Aply ER: T5 Right Shoulder ROM WFL No Testing Position Sitting Flexion 85 Abduction 80 Internal Rotation Behind Back (text) R pelvis Comments Aply ER: head Shoulder ROM Limitations Shoulder ROM Limitations Soft Tissue Tightness,Muscle Weakness,Pain PT-OP-M Strength Start: 08/23/23 16:14 Freq: Status: Active Protocol: Document 08/23/23 16:15 AM (Rec: 08/23/23 17:36 AM [id number]) Shoulder Strength Shoulder Manual Muscle Testing Left Flexion 5 Normal Abduction (C5) 4+ Good+ External Rotation 5 Normal Internal Rotation 5 Normal Right Comments Not tested secondary to post- op restrictions and limited AROM PT-OP-Q Treatments Start: 08/23/23 16:14 Freq: Status: Active Protocol: Document 08/23/23 16:15 AM (Rec: 08/23/23 17:39 AM [id number]) Therapeutic Exercises Supine Exercises Ceiling punches Supine Exercise Name Ceiling punches Side right Comments Hands clasped, assisted by L hand Standing Exercises Row Standing Exercise Name Standing row Side bilateral Resistance OTB Reps/Minutes x10 AAROM flexion Standing Exercise Name hands on counter, walk back stretch Side bilateral Equipment Used counter Reps/Minutes x5 Manual Therapy Treatment Manual Techniques PROM Type PROM Body Location R shoulder Body Position Supine Comments All directions, ER/IR at 45 deg abd PT-OP-T Assessment and Plan Start: 08/23/23 16:14 Freq: Status: Active Protocol: Document 08/23/23 16:15 AM (Rec: 08/23/23 17:36 AM [id number]) Physical Therapy Assessment Rehab Potential Rehabilitation Potential Good Evaluation Complexity Number of Personal Factors/Comorbidities 1-2 Number of Body Systems Impaired 1-2 Clinical Presentation at Evaluation Stable Impairments Impairments Activity Tolerance,Posture,ROM ,Soft Tissue Mobility,Strength Goals HEP Impairment HEP Alf Goal (LTG) Pt independent with HEP LTG Duration 10/18/23 Strength Impairment Pt with R shoulder strength impairments Short Term Goal (STG) Pt with 3+/5 R shoulder strength. STG Duration 09/20/23 Survey Data Technician Goal (LTG) Pt with >4/5 R shoulder strength. LTG Duration 10/18/23 Quick Dash Impairment Pt with 70% R shoulder impairment per Quick Dash Short Term Goal (STG) Pt with 40% R shoulder impairment per Quick Dash STG Duration 09/20/23 Alf Goal (LTG) Pt with <25% R shoulder impairment per Quick Dash LTG Duration 10/18/23 ROM Impairment Pt with 85 degrees of shoulder flexion/abduction AROM. Short Term Goal (STG) Pt with 110 degrees of shoulder flexion and abduction AROM. STG Duration 09/20/23 Alf Goal (LTG) Pt with 145 deg of shoulder flexion and abduction AROM. LTG Duration 10/18/23 Pain Impairment Pt with reported pain at 9/10 at worst. Short Term Goal (STG) Pt with reported pain at 6/10 at worst. STG Duration 09/20/23 Alf Goal (LTG) Pt with reported pain at 3/10 at worst. LTG Duration 10/18/23 Assessment Summary Assessment Chao Johnson presents to PT to address R shoulder pain and functional impairment following R SAD, debridement, biceps tenodesis and distal clavicle excision. Pt demonstrates limitations in A/ PROM. Pt demonstrates superior humeral glide with shoulder AROM greater than 80 degrees. Pt tolerated AAROM exercises given in HEP, though encouraged to avoid painful ranges. Pt would benefit from continued PT to progress shoulder mobility and strength as appropriate per symptoms/ protocol to improve tolerance to functional/recreational activities. Physical Therapy Plan Frequency and Duration Frequency of Treatment 2x/Week Duration of treatment (weeks) 8 Plan of Care Start Date 08/23/23 Plan of Care End Date 10/18/23 Therapeutic Interventions Therapeutic Interventions Home Exercise Program,Joint Mobilizations,Manual Therapy, Neuromuscular Re-education, Patient/Caregiver Education, Self-Care/Home Management,Soft Tissue Mobilization, Therapeutic Activities, Therapeutic Exercises Modalities Cold Pack/Ice Massage,Electric Stimulation,Hot Packs, Ultrasound Next Visit Focus/Plan Next Note Type Treatment Note Next Visit Plan Progress PROM and AAROM as tolerated, initiate isometrics
--- NOTE | 2023-08-23 16:15 | PT.OPPOC ---
Physical, Occupational & Speech Therapy At [facility] Current Diagnoses Pain in right shoulder (08/23/23) Bursitis of right shoulder (08/23/23) Strain of muscle(s) and tendon(s) of the rotator cuff of right shoulder, initial encounter (08/23/23) Strain of unspecified muscle, fascia and tendon at shoulder and upper arm level, right arm, initial encounter (08/23/23) Visit Care Team Role Provider Type MERLYN Nunes Family Provider Non-Staff Primary Care Provider Specialty: Family Practice Address: [address] [place] [address], [id number] Email: Kvng Abernathy PA-C Attending Provider Non-Staff Referring Provider Specialty: Medical Address: [address] [place] [address], [id number] Phone: Email: Plan Of Care PT-OP-T Assessment and Plan Start: 08/23/23 16:14 Freq: Status: Active Protocol: Document 08/23/23 16:15 AM (Rec: 08/23/23 17:36 AM [id number]) Physical Therapy Assessment Rehab Potential Rehabilitation Potential Good Evaluation Complexity Number of Personal Factors/Comorbidities 1-2 Number of Body Systems Impaired 1-2 Clinical Presentation at Evaluation Stable Impairments Impairments Activity Tolerance,Posture,ROM ,Soft Tissue Mobility,Strength Goals HEP Impairment HEP Fdc Goal (LTG) Pt independent with HEP LTG Duration 10/18/23 Strength Impairment Pt with R shoulder strength impairments Short Term Goal (STG) Pt with 3+/5 R shoulder strength. STG Duration 09/20/23 Lead Care Manager Goal (LTG) Pt with >4/5 R shoulder strength. LTG Duration 10/18/23 Quick Dash Impairment Pt with 70% R shoulder impairment per Quick Dash Short Term Goal (STG) Pt with 40% R shoulder impairment per Quick Dash STG Duration 09/20/23 Fdc Goal (LTG) Pt with <25% R shoulder impairment per Quick Dash LTG Duration 10/18/23 ROM Impairment Pt with 85 degrees of shoulder flexion/abduction AROM. Short Term Goal (STG) Pt with 110 degrees of shoulder flexion and abduction AROM. STG Duration 09/20/23 Lead Care Manager Goal (LTG) Pt with 145 deg of shoulder flexion and abduction AROM. LTG Duration 10/18/23 Pain Impairment Pt with reported pain at 9/10 at worst. Short Term Goal (STG) Pt with reported pain at 6/10 at worst. STG Duration 09/20/23 Fdc Goal (LTG) Pt with reported pain at 3/10 at worst. LTG Duration 10/18/23 Assessment Summary Assessment Chao Johnson presents to PT to address R shoulder pain and functional impairment following R SAD, debridement, biceps tenodesis and distal clavicle excision. Pt demonstrates limitations in A/ PROM. Pt demonstrates superior humeral glide with shoulder AROM greater than 80 degrees. Pt tolerated AAROM exercises given in HEP, though encouraged to avoid painful ranges. Pt would benefit from continued PT to progress shoulder mobility and strength as appropriate per symptoms/ protocol to improve tolerance to functional/recreational activities. Physical Therapy Plan Frequency and Duration Frequency of Treatment 2x/Week Duration of treatment (weeks) 8 Plan of Care Start Date 08/23/23 Plan of Care End Date 10/18/23 Therapeutic Interventions Therapeutic Interventions Home Exercise Program,Joint Mobilizations,Manual Therapy, Neuromuscular Re-education, Patient/Caregiver Education, Self-Care/Home Management,Soft Tissue Mobilization, Therapeutic Activities, Therapeutic Exercises Modalities Cold Pack/Ice Massage,Electric Stimulation,Hot Packs, Ultrasound Next Visit Focus/Plan Next Note Type Treatment Note Next Visit Plan Progress PROM and AAROM as tolerated, initiate isometrics Plan of Care Dates Plan of Care Start Date 08/23/23 Plan of Care End Date 10/18/23 Electronically Signed by: Francie Mckeon, PT 08/23/23 [id number] If you are in agreement with this Plan of Care, please return a signed and dated copy. I have reviewed this Plan of Care and certify that the skilled therapy services above are required to meet the patient?s needs. Physician Signature Date Printed Name and Credentials Clinical Instructor Signature Printed Name and Credentials
--- NOTE | 2023-08-25 16:07 | PT.OTN ---
Current Diagnoses Pain in right shoulder (08/25/23) Bursitis of right shoulder (08/25/23) Strain of muscle(s) and tendon(s) of the rotator cuff of right shoulder, initial encounter (08/25/23) Strain of unspecified muscle, fascia and tendon at shoulder and upper arm level, right arm, initial encounter (08/25/23) Physical Therapy Treatment Note PT-OP-A Visit Information Start: 08/23/23 16:14 Freq: Status: Active Protocol: Document 08/25/23 16:07 AM (Rec: 08/25/23 17:09 AM [id number]) Out-Patient Physical Therapy Visit Information Visit Information Visit Type Treatment Note Visit Start Time 16:08 Visit Stop Time 16:51 Total Visit Minutes 43 Visit Number 01/07 PT-OP-B Current Condition Start: 08/23/23 16:14 Freq: Status: Active Protocol: Document 08/25/23 16:07 AM (Rec: 08/25/23 17:09 AM [id number]) Current Condition History of Current Condition Onset Date 07/06/23 Current Complaints R shoulder pain. History of Current Condition Pt had shoulder surgery on 07/06. Pt had a subacromial decompression/debridement with R shoulder arthroscopy, distal clavicle excision, biceps tenodesis. Pt was in a sling until the end of June. Pt reports previous R shoulder exploratory surgery in 2019. At that point he was having pain. 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 Had numbness. Pt reports partial rotator cuff tear at that point. Pt just under 7 weeks out of surgery. PT-OP-C Subjective Start: 08/23/23 16:14 Freq: Status: Active Protocol: Document 08/25/23 16:07 AM (Rec: 08/25/23 17:09 AM [id number]) OP-PT Subjective Patient Comments Patient Comments Pt reports shoulder pain at 6- 7/10 today. Pt reports next f/ u with ortho is in 2 months. PT-OP-J Posture/Palpation/Skin Start: 08/23/23 16:14 Freq: Status: Active Protocol: Document 08/23/23 16:15 AM (Rec: 08/23/23 17:36 AM [id number]) Posture Evaluation Position Sitting Evaluation View Lateral Head/C-Spine Posture Forward Head Shoulder Posture (L) Forward,(R) Forward Scapula Posture (L) Protracted,(R) Protracted Skin Assessment Incisional Assessment Incision Appearance/Comments Incisions healed PT-OP-K Range of Motion Start: 08/23/23 16:14 Freq: Status: Active Protocol: Document 08/23/23 16:15 AM (Rec: 08/23/23 17:36 AM [id number]) Shoulder Goniometric Range of Motion Shoulder Right Passive Shoulder ROM WFL No Testing Position Supine Flexion 95 Abduction 92 External Rotation at 45 degrees 20 Abduction Comments IR to stomach in 45 deg abd Left Active Shoulder ROM WFL Yes Testing Position Sitting Flexion 145 Abduction 150 Internal Rotation Behind Back (text) T10 Comments Aply ER: T5 Right Shoulder ROM WFL No Testing Position Sitting Flexion 85 Abduction 80 Internal Rotation Behind Back (text) R pelvis Comments Aply ER: head Shoulder ROM Limitations Shoulder ROM Limitations Soft Tissue Tightness,Muscle Weakness,Pain PT-OP-M Strength Start: 08/23/23 16:14 Freq: Status: Active Protocol: Document 08/23/23 16:15 AM (Rec: 08/23/23 17:36 AM [id number]) Shoulder Strength Shoulder Manual Muscle Testing Left Flexion 5 Normal Abduction (C5) 4+ Good+ External Rotation 5 Normal Internal Rotation 5 Normal Right Comments Not tested secondary to post- op restrictions and limited AROM PT-OP-Q Treatments Start: 08/23/23 16:14 Freq: Status: Active Protocol: Document 08/25/23 16:07 AM (Rec: 08/25/23 17:09 AM [id number]) Cardio Equipment Upper Body Ergometer (UBE) Duration (Minutes) 5 Seat Position 19 Therapeutic Exercises Supine Exercises Ceiling punches Supine Exercise Name Ceiling punches Side right Comments Hands clasped, assisted by L hand Standing Exercises Shoulder isometric Standing Exercise Name Shoulder isometrics in all directions Side right Equipment Used wall, towel Reps/Minutes 5x[address] Table slide Standing Exercise Name Table slide with ball Equipment Used green swissball on hi-low table Reps/Minutes x10 Manual Therapy Treatment Manual Techniques PROM Type PROM Body Location R shoulder Body Position Supine Comments All directions, ER/IR at 45 deg abd PT-OP-T Assessment and Plan Start: 08/23/23 16:14 Freq: Status: Active Protocol: Document 08/25/23 16:07 AM (Rec: 08/25/23 17:09 AM [id number]) Physical Therapy Assessment Impairments Impairments Activity Tolerance,Posture,ROM ,Soft Tissue Mobility,Strength Goals HEP Impairment HEP Longterm Goal (LTG) Pt independent with HEP LTG Duration 10/18/23 Strength Impairment Pt with R shoulder strength impairments Short Term Goal (STG) Pt with 3+/5 R shoulder strength. STG Duration 09/20/23 Roll Mill Operator Goal (LTG) Pt with >4/5 R shoulder strength. LTG Duration 10/18/23 Quick Dash Impairment Pt with 70% R shoulder impairment per Quick Dash Short Term Goal (STG) Pt with 40% R shoulder impairment per Quick Dash STG Duration 09/20/23 Roll Mill Operator Goal (LTG) Pt with <25% R shoulder impairment per Quick Dash LTG Duration 10/18/23 ROM Impairment Pt with 85 degrees of shoulder flexion/abduction AROM. Short Term Goal (STG) Pt with 110 degrees of shoulder flexion and abduction AROM. STG Duration 09/20/23 Roll Mill Operator Goal (LTG) Pt with 145 deg of shoulder flexion and abduction AROM. LTG Duration 10/18/23 Pain Impairment Pt with reported pain at 9/10 at worst. Short Term Goal (STG) Pt with reported pain at 6/10 at worst. STG Duration 09/20/23 Roll Mill Operator Goal (LTG) Pt with reported pain at 3/10 at worst. LTG Duration 10/18/23 Assessment Summary Assessment Pt with improved tolerance to PROM with increased range into ER and abduction. Pt continues to be limited with shoulder flexion PROM secondary to pain. Pt able to tolerate shoulder isometrics without production of increased pain, which were given in HEP. Pt would benefit from continued PT to progress shoulder mobility and strength per protocol. Physical Therapy Plan Frequency and Duration Frequency of Treatment 2x/Week Duration of treatment (weeks) 8 Plan of Care Start Date 08/23/23 Plan of Care End Date 10/18/23 Therapeutic Interventions Therapeutic Interventions Home Exercise Program,Joint Mobilizations,Manual Therapy, Neuromuscular Re-education, Patient/Caregiver Education, Self-Care/Home Management,Soft Tissue Mobilization, Therapeutic Activities, Therapeutic Exercises Modalities Cold Pack/Ice Massage,Electric Stimulation,Hot Packs, Ultrasound Next Visit Focus/Plan Next Note Type Treatment Note Next Visit Plan Progress PROM and AAROM as tolerated
--- NOTE | 2023-08-30 15:19 | PT.OTN ---
Current Diagnoses Pain in right shoulder (08/30/23) Bursitis of right shoulder (08/30/23) Strain of muscle(s) and tendon(s) of the rotator cuff of right shoulder, initial encounter (08/30/23) Strain of unspecified muscle, fascia and tendon at shoulder and upper arm level, right arm, initial encounter (08/30/23) Physical Therapy Treatment Note PT-OP-A Visit Information Start: 08/23/23 16:14 Freq: Status: Active Protocol: Document 08/30/23 15:19 AM (Rec: 08/30/23 15:23 AM [id number]) Out-Patient Physical Therapy Visit Information Visit Information Visit Type Treatment Note Visit Start Time 15:19 Visit Stop Time 16:01 Total Visit Minutes 42 Visit Number 02/04 PT-OP-B Current Condition Start: 08/23/23 16:14 Freq: Status: Active Protocol: Document 08/25/23 16:07 AM (Rec: 08/25/23 17:09 AM [id number]) Current Condition History of Current Condition Onset Date 07/06/23 Current Complaints R shoulder pain. History of Current Condition Pt had shoulder surgery on 07/06. Pt had a subacromial decompression/debridement with R shoulder arthroscopy, distal clavicle excision, biceps tenodesis. Pt was in a sling until the end of June. Pt reports previous R shoulder exploratory surgery in 2019. At that point he was having pain. 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 Had numbness. Pt reports partial rotator cuff tear at that point. Pt just under 7 weeks out of surgery. PT-OP-C Subjective Start: 08/23/23 16:14 Freq: Status: Active Protocol: Document 08/30/23 15:19 AM (Rec: 08/30/23 15:23 AM [id number]) OP-PT Subjective Patient Comments Patient Comments Pt reports that pain at shoulder is at 8/10. Pt reports that he saw his physician today and they moved his shoulder in all directions. Pt reports that the physician happy with progress so far. Pt reports that does not feel impingement or popping post-surgery. PT-OP-J Posture/Palpation/Skin Start: 08/23/23 16:14 Freq: Status: Active Protocol: Document 08/23/23 16:15 AM (Rec: 08/23/23 17:36 AM [id number]) Posture Evaluation Position Sitting Evaluation View Lateral Head/C-Spine Posture Forward Head Shoulder Posture (L) Forward,(R) Forward Scapula Posture (L) Protracted,(R) Protracted Skin Assessment Incisional Assessment Incision Appearance/Comments Incisions healed PT-OP-K Range of Motion Start: 08/23/23 16:14 Freq: Status: Active Protocol: Document 08/30/23 15:19 AM (Rec: 08/30/23 15:24 AM [id number]) Shoulder Goniometric Range of Motion Shoulder Right Passive Flexion 105 Abduction 95 External Rotation at 45 degrees 55 Abduction Right Shoulder ROM WFL No Flexion 100 Abduction 90 PT-OP-M Strength Start: 08/23/23 16:14 Freq: Status: Active Protocol: Document 08/23/23 16:15 AM (Rec: 08/23/23 17:36 AM [id number]) Shoulder Strength Shoulder Manual Muscle Testing Left Flexion 5 Normal Abduction (C5) 4+ Good+ External Rotation 5 Normal Internal Rotation 5 Normal Right Comments Not tested secondary to post- op restrictions and limited AROM PT-OP-Q Treatments Start: 08/23/23 16:14 Freq: Status: Active Protocol: Document 08/30/23 15:19 AM (Rec: 08/30/23 15:24 AM [id number]) Cardio Equipment Upper Body Ergometer (UBE) Duration (Minutes) 5 Seat Position 18 Therapeutic Exercises Supine Exercises Dowel flexion Supine Exercise Name Dowel flexion Equipment Used treAtlantiuming pole Reps/Minutes x10 Ceiling punches Supine Exercise Name Ceiling punches Side right Comments with dowel Sitting Exercises Riley Sitting Exercise Name Shoulder flexion Side right Reps/Minutes x1 min Comments AAROM, L doing most of the work Manual Therapy Treatment Manual Techniques PROM Type PROM Body Location R shoulder Body Position Supine Comments All directions, ER/IR at 45 deg abd PT-OP-T Assessment and Plan Start: 08/23/23 16:14 Freq: Status: Active Protocol: Document 08/30/23 15:19 AM (Rec: 08/30/23 15:23 AM [id number]) Physical Therapy Assessment Goals HEP Impairment HEP Prison Goal (LTG) Pt independent with HEP LTG Duration 10/18/23 Strength Impairment Pt with R shoulder strength impairments Short Term Goal (STG) Pt with 3+/5 R shoulder strength. STG Duration 09/20/23 Box Finisher Goal (LTG) Pt with >4/5 R shoulder strength. LTG Duration 10/18/23 Quick Dash Impairment Pt with 70% R shoulder impairment per Quick Dash Short Term Goal (STG) Pt with 40% R shoulder impairment per Quick Dash STG Duration 09/20/23 Box Finisher Goal (LTG) Pt with <25% R shoulder impairment per Quick Dash LTG Duration 10/18/23 ROM Impairment Pt with 85 degrees of shoulder flexion/abduction AROM. Short Term Goal (STG) Pt with 110 degrees of shoulder flexion and abduction AROM. STG Duration 09/20/23 Box Finisher Goal (LTG) Pt with 145 deg of shoulder flexion and abduction AROM. LTG Duration 10/18/23 Pain Impairment Pt with reported pain at 9/10 at worst. Short Term Goal (STG) Pt with reported pain at 6/10 at worst. STG Duration 09/20/23 Prison Goal (LTG) Pt with reported pain at 3/10 at worst. LTG Duration 10/18/23 Assessment Summary Assessment Pt demonstrates improvement in PROM and AROM compared to previous measurements. Pt with fair tolerance to AAROM exercises today. Pt would benefit from continued PT to progress shoulder mobility as tolerated per protocol. Physical Therapy Plan Frequency and Duration Frequency of Treatment 2x/Week Duration of treatment (weeks) 8 Plan of Care Start Date 08/23/23 Plan of Care End Date 10/18/23 Therapeutic Interventions Therapeutic Interventions Home Exercise Program,Joint Mobilizations,Manual Therapy, Neuromuscular Re-education, Patient/Caregiver Education, Self-Care/Home Management,Soft Tissue Mobilization, Therapeutic Activities, Therapeutic Exercises Modalities Cold Pack/Ice Massage,Electric Stimulation,Hot Packs, Ultrasound Next Visit Focus/Plan Next Note Type Treatment Note Next Visit Plan Progress PROM and AAROM as tolerated
--- NOTE | 2023-09-06 12:23 | PT.OTN ---
Current Diagnoses Pain in right shoulder (09/06/23) Bursitis of right shoulder (09/06/23) Strain of muscle(s) and tendon(s) of the rotator cuff of right shoulder, initial encounter (09/06/23) Strain of unspecified muscle, fascia and tendon at shoulder and upper arm level, right arm, initial encounter (09/06/23) Physical Therapy Treatment Note PT-OP-A Visit Information Start: 08/23/23 16:14 Freq: Status: Active Protocol: Document 09/06/23 12:23 AM (Rec: 09/06/23 13:06 AM [id number]) Out-Patient Physical Therapy Visit Information Visit Information Visit Type Treatment Note Visit Start Time 12:23 Visit Stop Time 13:04 Total Visit Minutes 41 Visit Number 03/07 PT-OP-B Current Condition Start: 08/23/23 16:14 Freq: Status: Active Protocol: Document 08/25/23 16:07 AM (Rec: 08/25/23 17:09 AM [id number]) Current Condition History of Current Condition Onset Date 07/06/23 Current Complaints R shoulder pain. History of Current Condition Pt had shoulder surgery on 07/06. Pt had a subacromial decompression/debridement with R shoulder arthroscopy, distal clavicle excision, biceps tenodesis. Pt was in a sling until the end of June. Pt reports previous R shoulder exploratory surgery in 2019. At that point he was having pain. 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 Had numbness. Pt reports partial rotator cuff tear at that point. Pt just under 7 weeks out of surgery. PT-OP-C Subjective Start: 08/23/23 16:14 Freq: Status: Active Protocol: Document 09/06/23 12:23 AM (Rec: 09/06/23 13:32 AM [id number]) OP-PT Subjective Patient Comments Patient Comments Pt reports that he feels that his shoulder is improving gradually. Pt reports good compliance with HEP. PT-OP-J Posture/Palpation/Skin Start: 08/23/23 16:14 Freq: Status: Active Protocol: Document 08/23/23 16:15 AM (Rec: 08/23/23 17:36 AM [id number]) Posture Evaluation Position Sitting Evaluation View Lateral Head/C-Spine Posture Forward Head Shoulder Posture (L) Forward,(R) Forward Scapula Posture (L) Protracted,(R) Protracted Skin Assessment Incisional Assessment Incision Appearance/Comments Incisions healed PT-OP-K Range of Motion Start: 08/23/23 16:14 Freq: Status: Active Protocol: Document 08/30/23 15:19 AM (Rec: 08/30/23 15:24 AM [id number]) Shoulder Goniometric Range of Motion Shoulder Right Passive Flexion 105 Abduction 95 External Rotation at 45 degrees 55 Abduction Right Shoulder ROM WFL No Flexion 100 Abduction 90 PT-OP-M Strength Start: 08/23/23 16:14 Freq: Status: Active Protocol: Document 08/23/23 16:15 AM (Rec: 08/23/23 17:36 AM [id number]) Shoulder Strength Shoulder Manual Muscle Testing Left Flexion 5 Normal Abduction (C5) 4+ Good+ External Rotation 5 Normal Internal Rotation 5 Normal Right Comments Not tested secondary to post- op restrictions and limited AROM PT-OP-Q Treatments Start: 08/23/23 16:14 Freq: Status: Active Protocol: Document 09/06/23 12:23 AM (Rec: 09/06/23 13:06 AM [id number]) Cardio Equipment Upper Body Ergometer (UBE) Duration (Minutes) 6 Seat Position 18 Other fwd/back Therapeutic Exercises Supine Exercises Ceiling punches Supine Exercise Name Ceiling punches Side right Comments Hands clasped, assisted by L hand Sitting Exercises Riley Sitting Exercise Name Shoulder flexion Side right Reps/Minutes x1 min Comments AAROM, L doing most of the work Standing Exercises Wall slide Reps/Minutes x10 Comments added to HEP Standing extension Resistance OTB Reps/Minutes 2x10 Row Resistance OTB Reps/Minutes 2x10 Manual Therapy Treatment Manual Techniques PROM Type PROM Body Location R shoulder Body Position Supine Comments All directions, ER/IR at 45 deg abd PT-OP-T Assessment and Plan Start: 08/23/23 16:14 Freq: Status: Active Protocol: Document 09/06/23 12:23 AM (Rec: 09/06/23 13:06 AM [id number]) Physical Therapy Assessment Goals HEP Impairment HEP Prison Goal (LTG) Pt independent with HEP LTG Duration 10/18/23 Strength Impairment Pt with R shoulder strength impairments Short Term Goal (STG) Pt with 3+/5 R shoulder strength. STG Duration 09/20/23 Teletypewriter Operator Goal (LTG) Pt with >4/5 R shoulder strength. LTG Duration 10/18/23 Quick Dash Impairment Pt with 70% R shoulder impairment per Quick Dash Short Term Goal (STG) Pt with 40% R shoulder impairment per Quick Dash STG Duration 09/20/23 Teletypewriter Operator Goal (LTG) Pt with <25% R shoulder impairment per Quick Dash LTG Duration 10/18/23 ROM Impairment Pt with 85 degrees of shoulder flexion/abduction AROM. Short Term Goal (STG) Pt with 110 degrees of shoulder flexion and abduction AROM. STG Duration 09/20/23 Prison Goal (LTG) Pt with 145 deg of shoulder flexion and abduction AROM. LTG Duration 10/18/23 Pain Impairment Pt with reported pain at 9/10 at worst. Short Term Goal (STG) Pt with reported pain at 6/10 at worst. STG Duration 09/20/23 Teletypewriter Operator Goal (LTG) Pt with reported pain at 3/10 at worst. LTG Duration 10/18/23 Assessment Summary Assessment Pt demonstrates improving AAROM flexion mobility compared to previous session. Pt tolerated resisted scapular training with production of symptoms. Pt with reported shoulder soreness following tx today. Pt would benefit from continued PT to progress shoulder mobility and strength as tolerated per protocol. Physical Therapy Plan Frequency and Duration Frequency of Treatment 2x/Week Duration of treatment (weeks) 8 Plan of Care Start Date 08/23/23 Plan of Care End Date 10/18/23 Therapeutic Interventions Therapeutic Interventions Home Exercise Program,Joint Mobilizations,Manual Therapy, Neuromuscular Re-education, Patient/Caregiver Education, Self-Care/Home Management,Soft Tissue Mobilization, Therapeutic Activities, Therapeutic Exercises Modalities Cold Pack/Ice Massage,Electric Stimulation,Hot Packs, Ultrasound Next Visit Focus/Plan Next Note Type Treatment Note Next Visit Plan Progress PROM and AAROM as tolerated
--- NOTE | 2023-09-15 16:06 | PT.OTN ---
Current Diagnoses Pain in right shoulder (09/15/23) Bursitis of right shoulder (09/15/23) Strain of muscle(s) and tendon(s) of the rotator cuff of right shoulder, initial encounter (09/15/23) Strain of unspecified muscle, fascia and tendon at shoulder and upper arm level, right arm, initial encounter (09/15/23) Physical Therapy Treatment Note PT-OP-A Visit Information Start: 08/23/23 16:14 Freq: Status: Active Protocol: Document 09/15/23 16:06 AM (Rec: 09/15/23 17:25 AM [id number]) Out-Patient Physical Therapy Visit Information Visit Information Visit Type Treatment Note Visit Start Time 16:04 Visit Stop Time 16:49 Total Visit Minutes 45 Visit Number 5 PT-OP-B Current Condition Start: 08/23/23 16:14 Freq: Status: Active Protocol: Document 08/25/23 16:07 AM (Rec: 08/25/23 17:09 AM [id number]) Current Condition History of Current Condition Onset Date 07/06/23 Current Complaints R shoulder pain. History of Current Condition Pt had shoulder surgery on 07/06. Pt had a subacromial decompression/debridement with R shoulder arthroscopy, distal clavicle excision, biceps tenodesis. Pt was in a sling until the end of June. Pt reports previous R shoulder exploratory surgery in 2019. At that point he was having pain. Pt's initial injury was that he went to case picker some boxes, felt it pop. Had numbness. Pt reports partial rotator cuff tear at that point. Pt just under 7 weeks out of surgery. PT-OP-C Subjective Start: 08/23/23 16:14 Freq: Status: Active Protocol: Document 09/15/23 16:06 AM (Rec: 09/15/23 17:25 AM [id number]) OP-PT Subjective Patient Comments Patient Comments Pt reports that his shoulder has been sore since last session. Pt reports that he has been unable to do wall slides at home. Pt will f/u with ortho in one month. PT-OP-J Posture/Palpation/Skin Start: 08/23/23 16:14 Freq: Status: Active Protocol: Document 08/23/23 16:15 AM (Rec: 08/23/23 17:36 AM [id number]) Posture Evaluation Position Sitting Evaluation View Lateral Head/C-Spine Posture Forward Head Shoulder Posture (L) Forward,(R) Forward Scapula Posture (L) Protracted,(R) Protracted Skin Assessment Incisional Assessment Incision Appearance/Comments Incisions healed PT-OP-K Range of Motion Start: 08/23/23 16:14 Freq: Status: Active Protocol: Document 08/30/23 15:19 AM (Rec: 08/30/23 15:24 AM [id number]) Shoulder Goniometric Range of Motion Shoulder Right Passive Flexion 105 Abduction 95 External Rotation at 45 degrees 55 Abduction Right Shoulder ROM WFL No Flexion 100 Abduction 90 PT-OP-M Strength Start: 08/23/23 16:14 Freq: Status: Active Protocol: Document 08/23/23 16:15 AM (Rec: 08/23/23 17:36 AM [id number]) Shoulder Strength Shoulder Manual Muscle Testing Left Flexion 5 Normal Abduction (C5) 4+ Good+ External Rotation 5 Normal Internal Rotation 5 Normal Right Comments Not tested secondary to post- op restrictions and limited AROM PT-OP-Q Treatments Start: 08/23/23 16:14 Freq: Status: Active Protocol: Document 09/15/23 16:06 AM (Rec: 09/15/23 17:25 AM [id number]) Therapeutic Exercises Sitting Exercises Nohelia Sitting Exercise Name Shoulder flexion Side right Reps/Minutes x1 min Comments Figueroa ARIZA doing most of the work Standing Exercises Dowel abduction Standing Exercise Name Dowel scaption Reps/Minutes x10 Comments cues to decrease shoulder guarding, scaption ROM Wall slide Reps/Minutes x2 Comments pain, therefore stopped and removed from HEP Standing extension Resistance OTB Reps/Minutes 2x10 Shoulder isometric Standing Exercise Name flex and abd Reps/Minutes 10x10 sec Table slide Standing Exercise Name Table slide with east timorese ball Equipment Used green east [place]se ball Row Resistance OTB Reps/Minutes 2x10 Comments cues for scapular control Manual Therapy Treatment Joint Mobilizations Shoulder Joint GHJ Direction S-I Grade II Body Position Supine Manual Techniques PROM Type PROM Body Location R shoulder Body Position Supine Comments All directions, ER/IR at 45 deg abd PT-OP-T Assessment and Plan Start: 08/23/23 16:14 Freq: Status: Active Protocol: Document 09/15/23 16:06 AM (Rec: 09/15/23 17:25 AM [id number]) Physical Therapy Assessment Goals HEP Impairment HEP Certified Energy Manager Goal (LTG) Pt independent with HEP LTG Duration 10/18/23 Strength Impairment Pt with R shoulder strength impairments Short Term Goal (STG) Pt with 3+/5 R shoulder strength. STG Duration 09/20/23 Mcc Goal (LTG) Pt with >4/5 R shoulder strength. LTG Duration 10/18/23 Quick Dash Impairment Pt with 70% R shoulder impairment per Quick Dash Short Term Goal (STG) Pt with 40% R shoulder impairment per Quick Dash STG Duration 09/20/23 Mcc Goal (LTG) Pt with <25% R shoulder impairment per Quick Dash LTG Duration 10/18/23 ROM Impairment Pt with 85 degrees of shoulder flexion/abduction AROM. Short Term Goal (STG) Pt with 110 degrees of shoulder flexion and abduction AROM. STG Duration 09/20/23 Mcc Goal (LTG) Pt with 145 deg of shoulder flexion and abduction AROM. LTG Duration 10/18/23 Pain Impairment Pt with reported pain at 9/10 at worst. Short Term Goal (STG) Pt with reported pain at 6/10 at worst. STG Duration 09/20/23 Certified Energy Manager Goal (LTG) Pt with reported pain at 3/10 at worst. LTG Duration 10/18/23 Assessment Summary Assessment Pt continues to demonstrate improving AAROM mobility. Pt with decreased guarding with AAROM vs PROM. Pt with reduced symptoms with S-I GHJ glide. Pt required tactile cueing for scapular control. Pt given dowel scaption and nohelia in HEP. Pt will return to PT next week to continue to progress shoulder mobility as tolerated . Physical Therapy Plan Frequency and Duration Frequency of Treatment 2x/Week Duration of treatment (weeks) 8 Plan of Care Start Date 08/23/23 Plan of Care End Date 10/18/23 Therapeutic Interventions Therapeutic Interventions Home Exercise Program,Joint Mobilizations,Manual Therapy, Neuromuscular Re-education, Patient/Caregiver Education, Self-Care/Home Management,Soft Tissue Mobilization, Therapeutic Activities, Therapeutic Exercises Modalities Cold Pack/Ice Massage,Electric Stimulation,Hot Packs, Ultrasound Next Visit Focus/Plan Next Note Type Treatment Note Next Visit Plan Progress PROM and AAROM as tolerated
--- NOTE | 2023-09-29 15:18 | PT.OTN ---
Current Diagnoses Pain in right shoulder (09/29/23) Bursitis of right shoulder (09/29/23) Strain of muscle(s) and tendon(s) of the rotator cuff of right shoulder, initial encounter (09/29/23) Strain of unspecified muscle, fascia and tendon at shoulder and upper arm level, right arm, initial encounter (09/29/23) Physical Therapy Treatment Note PT-OP-A Visit Information Start: 08/23/23 16:14 Freq: Status: Active Protocol: Document 09/29/23 15:18 AM (Rec: 09/29/23 16:18 AM [id number]) Out-Patient Physical Therapy Visit Information Visit Information Visit Type Progress Note Visit Note 12 weeks post-op until 10/05 Visit Start Time 15:19 Visit Stop Time 16:04 Total Visit Minutes 45 Visit Number 05/09 by 10/19 PT-OP-B Current Condition Start: 08/23/23 16:14 Freq: Status: Active Protocol: Document 08/25/23 16:07 AM (Rec: 08/25/23 17:09 AM [id number]) Current Condition History of Current Condition Onset Date 07/06/23 Current Complaints R shoulder pain. History of Current Condition Pt had shoulder surgery on 07/06. Pt had a subacromial decompression/debridement with R shoulder arthroscopy, distal clavicle excision, biceps tenodesis. Pt was in a sling until the end of June. Pt reports previous R shoulder exploratory surgery in 2019. At that point he was having pain. Pt's initial injury was that he went to berry picker some boxes, felt it pop. Had numbness. Pt reports partial rotator cuff tear at that point. Pt just under 7 weeks out of surgery. PT-OP-C Subjective Start: 08/23/23 16:14 Freq: Status: Active Protocol: Document 09/29/23 15:18 AM (Rec: 09/29/23 16:18 AM [id number]) OP-PT Subjective Patient Comments Patient Comments Pt reports that he continues to have some discomfort at his R biceps at times. Pt will see his surgeon at end of the month. Patient Questionnaires Quick Dash- Upper Extremity Quick Dash UE Score 61% PT-OP-J Posture/Palpation/Skin Start: 08/23/23 16:14 Freq: Status: Active Protocol: Document 08/23/23 16:15 AM (Rec: 08/23/23 17:36 AM [id number]) Posture Evaluation Position Sitting Evaluation View Lateral Head/C-Spine Posture Forward Head Shoulder Posture (L) Forward,(R) Forward Scapula Posture (L) Protracted,(R) Protracted Skin Assessment Incisional Assessment Incision Appearance/Comments Incisions healed PT-OP-K Range of Motion Start: 08/23/23 16:14 Freq: Status: Active Protocol: Document 09/29/23 15:18 AM (Rec: 09/29/23 16:18 AM [id number]) Shoulder Goniometric Range of Motion Shoulder Right Flexion 120 Abduction 118 PT-OP-M Strength Start: 08/23/23 16:14 Freq: Status: Active Protocol: Document 08/23/23 16:15 AM (Rec: 08/23/23 17:36 AM [id number]) Shoulder Strength Shoulder Manual Muscle Testing Left Flexion 5 Normal Abduction (C5) 4+ Good+ External Rotation 5 Normal Internal Rotation 5 Normal Right Comments Not tested secondary to post- op restrictions and limited AROM PT-OP-Q Treatments Start: 08/23/23 16:14 Freq: Status: Active Protocol: Document 09/29/23 15:18 AM (Rec: 09/29/23 16:18 AM [id number]) Therapeutic Exercises Sidelying Exercises Flexion Side right Reps/Minutes x10 Abduction Side right Reps/Minutes x10 Comments added to HEP ER Side right Equipment Used towel Reps/Minutes x10 Comments added to HEP Standing Exercises Dowel abduction Standing Exercise Name Dowel scaption Reps/Minutes x10 Comments cues to decrease shoulder guarding, scaption ROM Wall slide Reps/Minutes x10 Standing extension Resistance GTB Reps/Minutes 2x10 Shoulder isometric Standing Exercise Name IR and ER walk out Resistance peach TB for ER and GTB for IR Row Resistance OTB Reps/Minutes 2x10 Comments cues for scapular control Manual Therapy Treatment Soft Tissue Mobilization periscapular muscles Body Location R periscapular muscles Mobilization Type Myofascial Release,Trigger Point Release Intensity/Depth Moderate Body Position Sidelying Manual Techniques PROM Type PROM Body Location R shoulder Body Position Supine Comments All directions, ER/IR at 45 deg abd PT-OP-T Assessment and Plan Start: 08/23/23 16:14 Freq: Status: Active Protocol: Document 09/29/23 15:18 AM (Rec: 09/29/23 16:18 AM [id number]) Physical Therapy Assessment Goals HEP Impairment HEP Mcc Goal (LTG) Pt independent with HEP LTG Duration 10/18/23 Strength Impairment Pt with R shoulder strength impairments Short Term Goal (STG) Pt with 3+/5 R shoulder strength. 09/29/23: Pt with 3+/5 R shoulder strength STG Duration 09/20/23-achieved Aerial Hurricane Hunter Goal (LTG) Pt with >4/5 R shoulder strength. LTG Duration 10/18/23 Quick Dash Impairment Pt with 70% R shoulder impairment per Quick Dash Short Term Goal (STG) Pt with 40% R shoulder impairment per Quick Dash 09/29/23: 61% on Quick dash, improved STG Duration 09/20/23 Aerial Hurricane Hunter Goal (LTG) Pt with <25% R shoulder impairment per Quick Dash LTG Duration 10/18/23 ROM Impairment Pt with 85 degrees of shoulder flexion/abduction AROM. Short Term Goal (STG) Pt with 110 degrees of shoulder flexion and abduction AROM. 09/29/23: Pt with 120 deg Flex and 118 deg abd. STG Duration 09/20/23 Mcc Goal (LTG) Pt with 145 deg of shoulder flexion and abduction AROM. LTG Duration 10/18/23 Pain Impairment Pt with reported pain at 9/10 at worst. Short Term Goal (STG) Pt with reported pain at 6/10 at worst. STG Duration 09/20/23 Mcc Goal (LTG) Pt with reported pain at 3/10 at worst. LTG Duration 10/18/23 Assessment Summary Assessment Pt able to tolerate sidelying AROM and rotator cuff strenghtening without production of increased pain. Pt demonstrates significant improvement in shoulder ROM since start of PT. Pt demonstrates continued shoulder functional deficits per Quick Dash score. Pt would benefit from continued PT to progress R shoulder strength and mobility to improve tolerance with functional tasks. Physical Therapy Plan Frequency and Duration Frequency of Treatment 2x/Week Duration of treatment (weeks) 8 Plan of Care Start Date 08/23/23 Plan of Care End Date 10/18/23 Therapeutic Interventions Therapeutic Interventions Home Exercise Program,Joint Mobilizations,Manual Therapy, Neuromuscular Re-education, Patient/Caregiver Education, Self-Care/Home Management,Soft Tissue Mobilization, Therapeutic Activities, Therapeutic Exercises Modalities Cold Pack/Ice Massage,Electric Stimulation,Hot Packs, Ultrasound Next Visit Focus/Plan Next Note Type Treatment Note Next Visit Plan Progress PROM and AAROM as tolerated
--- NOTE | 2023-10-04 14:20 | PT.OTN ---
Current Diagnoses Pain in right shoulder (10/04/23) Bursitis of right shoulder (10/04/23) Strain of muscle(s) and tendon(s) of the rotator cuff of right shoulder, initial encounter (10/04/23) Strain of unspecified muscle, fascia and tendon at shoulder and upper arm level, right arm, initial encounter (10/04/23) Physical Therapy Treatment Note PT-OP-A Visit Information Start: 08/23/23 16:14 Freq: Status: Active Protocol: Document 10/04/23 14:20 AM (Rec: 10/04/23 15:10 AM [id number]) Out-Patient Physical Therapy Visit Information Visit Information Visit Type Treatment Note Visit Start Time 14:20 Visit Stop Time 17:03 Total Visit Minutes 43 Visit Number 06/08 by 10/19 PT-OP-B Current Condition Start: 08/23/23 16:14 Freq: Status: Active Protocol: Document 08/25/23 16:07 AM (Rec: 08/25/23 17:09 AM [id number]) Current Condition History of Current Condition Onset Date 07/06/23 Current Complaints R shoulder pain. History of Current Condition Pt had shoulder surgery on 07/06. Pt had a subacromial decompression/debridement with R shoulder arthroscopy, distal clavicle excision, biceps tenodesis. Pt was in a sling until the end of June. Pt reports previous R shoulder exploratory surgery in 2019. At that point he was having pain. Pt's initial injury was that he went to apple picker some boxes, felt it pop. Had numbness. Pt reports partial rotator cuff tear at that point. Pt just under 7 weeks out of surgery. PT-OP-C Subjective Start: 08/23/23 16:14 Freq: Status: Active Protocol: Document 10/04/23 14:20 AM (Rec: 10/04/23 15:10 AM [id number]) OP-PT Subjective Patient Comments Patient Comments Pt reports that he slept wrong last night and it feels a little sore today. Pt reports that the new exercises have been feeling ok. PT-OP-J Posture/Palpation/Skin Start: 08/23/23 16:14 Freq: Status: Active Protocol: Document 08/23/23 16:15 AM (Rec: 08/23/23 17:36 AM [id number]) Posture Evaluation Position Sitting Evaluation View Lateral Head/C-Spine Posture Forward Head Shoulder Posture (L) Forward,(R) Forward Scapula Posture (L) Protracted,(R) Protracted Skin Assessment Incisional Assessment Incision Appearance/Comments Incisions healed PT-OP-K Range of Motion Start: 08/23/23 16:14 Freq: Status: Active Protocol: Document 09/29/23 15:18 AM (Rec: 09/29/23 16:18 AM [id number]) Shoulder Goniometric Range of Motion Shoulder Right Flexion 120 Abduction 118 PT-OP-M Strength Start: 08/23/23 16:14 Freq: Status: Active Protocol: Document 08/23/23 16:15 AM (Rec: 08/23/23 17:36 AM [id number]) Shoulder Strength Shoulder Manual Muscle Testing Left Flexion 5 Normal Abduction (C5) 4+ Good+ External Rotation 5 Normal Internal Rotation 5 Normal Right Comments Not tested secondary to post- op restrictions and limited AROM PT-OP-Q Treatments Start: 08/23/23 16:14 Freq: Status: Active Protocol: Document 10/04/23 14:20 AM (Rec: 10/04/23 15:10 AM [id number]) Cardio Equipment Upper Body Ergometer (UBE) Duration (Minutes) 6 RPM 60 Seat Position 18 Therapeutic Exercises Sidelying Exercises Flexion Side right Resistance 1 Reps/Minutes x10 Abduction Side right Resistance 1 Reps/Minutes x10 Comments added to HEP ER Side right Resistance 1 Equipment Used towel Reps/Minutes x10 Comments added to HEP Standing Exercises Resisted IR/ER Resistance Butler TB Equipment Used towel roll at elbow Reps/Minutes x10 Comments added to HEP Dowel abduction Standing Exercise Name Dowel scaption Reps/Minutes x10 Comments cues to decrease shoulder guarding, scaption ROM Standing extension Resistance GTB Reps/Minutes 2x10 Row Resistance GTB Reps/Minutes 2x10 Comments cues for scapular control PT-OP-T Assessment and Plan Start: 08/23/23 16:14 Freq: Status: Active Protocol: Document 10/04/23 14:20 AM (Rec: 10/04/23 15:10 AM [id number]) Physical Therapy Assessment Goals HEP Impairment HEP Claims Investigator Goal (LTG) Pt independent with HEP LTG Duration 10/18/23 Strength Impairment Pt with R shoulder strength impairments Short Term Goal (STG) Pt with 3+/5 R shoulder strength. 09/29/23: Pt with 3+/5 R shoulder strength STG Duration 09/20/23-achieved Detention Goal (LTG) Pt with >4/5 R shoulder strength. LTG Duration 10/18/23 Quick Dash Impairment Pt with 70% R shoulder impairment per Quick Dash Short Term Goal (STG) Pt with 40% R shoulder impairment per Quick Dash 09/29/23: 61% on Quick dash, improved STG Duration 09/20/23 Detention Goal (LTG) Pt with <25% R shoulder impairment per Quick Dash LTG Duration 10/18/23 ROM Impairment Pt with 85 degrees of shoulder flexion/abduction AROM. Short Term Goal (STG) Pt with 110 degrees of shoulder flexion and abduction AROM. 09/29/23: Pt with 120 deg Flex and 118 deg abd. STG Duration 09/20/23 Detention Goal (LTG) Pt with 145 deg of shoulder flexion and abduction AROM. LTG Duration 10/18/23 Pain Impairment Pt with reported pain at 9/10 at worst. Short Term Goal (STG) Pt with reported pain at 6/10 at worst. STG Duration 09/20/23 Claims Investigator Goal (LTG) Pt with reported pain at 3/10 at worst. LTG Duration 10/18/23 Assessment Summary Assessment Pt tolerated rotator cuff strengthening exercises well today without increase pain, except for at end range. Pt cued to stop before painful range. Pt demonstrates decreasing superior humeral glide with AAROM abduction. Pt would benefit from continued PT to progress shoulder mobility and strength for improved tolerance to functional tasks. Physical Therapy Plan Frequency and Duration Frequency of Treatment 2x/Week Duration of treatment (weeks) 8 Plan of Care Start Date 08/23/23 Plan of Care End Date 10/18/23 Therapeutic Interventions Therapeutic Interventions Home Exercise Program,Joint Mobilizations,Manual Therapy, Neuromuscular Re-education, Patient/Caregiver Education, Self-Care/Home Management,Soft Tissue Mobilization, Therapeutic Activities, Therapeutic Exercises Modalities Cold Pack/Ice Massage,Electric Stimulation,Hot Packs, Ultrasound Next Visit Focus/Plan Next Note Type Treatment Note Next Visit Plan Progress PROM and AAROM as tolerated
--- NOTE | 2023-10-06 15:20 | PT.OTN ---
Current Diagnoses Pain in right shoulder (10/06/23) Bursitis of right shoulder (10/06/23) Strain of muscle(s) and tendon(s) of the rotator cuff of right shoulder, initial encounter (10/06/23) Strain of unspecified muscle, fascia and tendon at shoulder and upper arm level, right arm, initial encounter (10/06/23) Physical Therapy Treatment Note PT-OP-A Visit Information Start: 08/23/23 16:14 Freq: Status: Active Protocol: Document 10/06/23 15:20 AM (Rec: 10/06/23 16:07 AM [id number]) Out-Patient Physical Therapy Visit Information Visit Information Visit Type Treatment Note Visit Note 13 weeks post-op until 10/12 Visit Start Time 15:20 Visit Stop Time 16:02 Total Visit Minutes 42 Visit Number 07/09 by 10/24 PT-OP-B Current Condition Start: 08/23/23 16:14 Freq: Status: Active Protocol: Document 08/25/23 16:07 AM (Rec: 08/25/23 17:09 AM [id number]) Current Condition History of Current Condition Onset Date 07/06/23 Current Complaints R shoulder pain. History of Current Condition Pt had shoulder surgery on 07/06. Pt had a subacromial decompression/debridement with R shoulder arthroscopy, distal clavicle excision, biceps tenodesis. Pt was in a sling until the end of June. Pt reports previous R shoulder exploratory surgery in 2019. At that point he was having pain. 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 Had numbness. Pt reports partial rotator cuff tear at that point. Pt just under 7 weeks out of surgery. PT-OP-C Subjective Start: 08/23/23 16:14 Freq: Status: Active Protocol: Document 10/06/23 15:20 AM (Rec: 10/06/23 16:07 AM [id number]) OP-PT Subjective Patient Comments Patient Comments Pt reports that his shoulder is a little sore today, blames the weather. PT-OP-J Posture/Palpation/Skin Start: 08/23/23 16:14 Freq: Status: Active Protocol: Document 08/23/23 16:15 AM (Rec: 08/23/23 17:36 AM [id number]) Posture Evaluation Position Sitting Evaluation View Lateral Head/C-Spine Posture Forward Head Shoulder Posture (L) Forward,(R) Forward Scapula Posture (L) Protracted,(R) Protracted Skin Assessment Incisional Assessment Incision Appearance/Comments Incisions healed PT-OP-K Range of Motion Start: 08/23/23 16:14 Freq: Status: Active Protocol: Document 09/29/23 15:18 AM (Rec: 09/29/23 16:18 AM [id number]) Shoulder Goniometric Range of Motion Shoulder Right Flexion 120 Abduction 118 PT-OP-M Strength Start: 08/23/23 16:14 Freq: Status: Active Protocol: Document 08/23/23 16:15 AM (Rec: 08/23/23 17:36 AM [id number]) Shoulder Strength Shoulder Manual Muscle Testing Left Flexion 5 Normal Abduction (C5) 4+ Good+ External Rotation 5 Normal Internal Rotation 5 Normal Right Comments Not tested secondary to post- op restrictions and limited AROM PT-OP-Q Treatments Start: 08/23/23 16:14 Freq: Status: Active Protocol: Document 10/06/23 15:20 AM (Rec: 10/06/23 16:07 AM [id number]) Cardio Equipment Upper Body Ergometer (UBE) Duration (Minutes) 6 RPM 60 Seat Position 18 Therapeutic Exercises Standing Exercises 3-way biceps curl Side bilateral Resistance 1-2# Reps/Minutes 2x10 Resisted IR/ER Resistance [place] TB Equipment Used towel roll at elbow Reps/Minutes x10 Comments added to HEP Wall slide Reps/Minutes x10 Standing extension Resistance GTB Reps/Minutes 2x10 Comments cues for scapular control PT-OP-T Assessment and Plan Start: 08/23/23 16:14 Freq: Status: Active Protocol: Document 10/06/23 15:20 AM (Rec: 10/06/23 16:07 AM [id number]) Physical Therapy Assessment Goals HEP Impairment HEP Correction Goal (LTG) Pt independent with HEP LTG Duration 10/18/23 Strength Impairment Pt with R shoulder strength impairments Short Term Goal (STG) Pt with 3+/5 R shoulder strength. 09/29/23: Pt with 3+/5 R shoulder strength STG Duration 09/20/23-achieved Correction Goal (LTG) Pt with >4/5 R shoulder strength. LTG Duration 10/18/23 Quick Dash Impairment Pt with 70% R shoulder impairment per Quick Dash Short Term Goal (STG) Pt with 40% R shoulder impairment per Quick Dash 09/29/23: 61% on Quick dash, improved STG Duration 09/20/23 Medical Assistant Internal Medicine Goal (LTG) Pt with <25% R shoulder impairment per Quick Dash LTG Duration 10/18/23 ROM Impairment Pt with 85 degrees of shoulder flexion/abduction AROM. Short Term Goal (STG) Pt with 110 degrees of shoulder flexion and abduction AROM. 09/29/23: Pt with 120 deg Flex and 118 deg abd. STG Duration 09/20/23 Medical Assistant Internal Medicine Goal (LTG) Pt with 145 deg of shoulder flexion and abduction AROM. LTG Duration 10/18/23 Pain Impairment Pt with reported pain at 9/10 at worst. Short Term Goal (STG) Pt with reported pain at 6/10 at worst. STG Duration 09/20/23 Correction Goal (LTG) Pt with reported pain at 3/10 at worst. LTG Duration 10/18/23 Assessment Summary Assessment Pt tolerating PRE well with minimal production of symptoms during tx session today. Pt able to tolerate standing flex /abd to 90 degrees, though difficulty with GHJ control above 90 degrees. Pt cued to avoid painful ranges. Pt would benefit from continued PT to progress functional shoulder mobility and strength as tolerated. Physical Therapy Plan Frequency and Duration Frequency of Treatment 2x/Week Duration of treatment (weeks) 8 Plan of Care Start Date 08/23/23 Plan of Care End Date 10/18/23 Therapeutic Interventions Therapeutic Interventions Home Exercise Program,Joint Mobilizations,Manual Therapy, Neuromuscular Re-education, Patient/Caregiver Education, Self-Care/Home Management,Soft Tissue Mobilization, Therapeutic Activities, Therapeutic Exercises Modalities Cold Pack/Ice Massage,Electric Stimulation,Hot Packs, Ultrasound Next Visit Focus/Plan Next Note Type Treatment Note Next Visit Plan Progress AROM and strength as tolerated
--- NOTE | 2023-10-10 14:19 | PT.OTN ---
Current Diagnoses Pain in right shoulder (10/10/23) Bursitis of right shoulder (10/10/23) Strain of muscle(s) and tendon(s) of the rotator cuff of right shoulder, initial encounter (10/10/23) Strain of unspecified muscle, fascia and tendon at shoulder and upper arm level, right arm, initial encounter (10/10/23) Physical Therapy Treatment Note PT-OP-A Visit Information Start: 08/23/23 16:14 Freq: Status: Active Protocol: Document 10/10/23 14:19 AM (Rec: 10/10/23 16:33 AM [id number]) Out-Patient Physical Therapy Visit Information Visit Information Visit Note 13 weeks post-op until 10/12. Visit Start Time 14:19 Visit Stop Time 15:04 Total Visit Minutes 45 Visit Number 08/09 by 10/24 PT-OP-B Current Condition Start: 08/23/23 16:14 Freq: Status: Active Protocol: Document 08/25/23 16:07 AM (Rec: 08/25/23 17:09 AM [id number]) Current Condition History of Current Condition Onset Date 07/06/23 Current Complaints R shoulder pain. History of Current Condition Pt had shoulder surgery on 07/06. Pt had a subacromial decompression/debridement with R shoulder arthroscopy, distal clavicle excision, biceps tenodesis. Pt was in a sling until the end of June. Pt reports previous R shoulder exploratory surgery in 2019. At that point he was having pain. 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 Had numbness. Pt reports partial rotator cuff tear at that point. Pt just under 7 weeks out of surgery. PT-OP-C Subjective Start: 08/23/23 16:14 Freq: Status: Active Protocol: Document 10/10/23 14:19 AM (Rec: 10/10/23 16:33 AM [id number]) OP-PT Subjective Patient Comments Patient Comments Pt reports shoulder is fine today. Pt reports that he has f/u with surgeon on 10/25. Pt reports improved use of R UE with functional activities including showering/drying. PT-OP-J Posture/Palpation/Skin Start: 08/23/23 16:14 Freq: Status: Active Protocol: Document 08/23/23 16:15 AM (Rec: 08/23/23 17:36 AM [id number]) Posture Evaluation Position Sitting Evaluation View Lateral Head/C-Spine Posture Forward Head Shoulder Posture (L) Forward,(R) Forward Scapula Posture (L) Protracted,(R) Protracted Skin Assessment Incisional Assessment Incision Appearance/Comments Incisions healed PT-OP-K Range of Motion Start: 08/23/23 16:14 Freq: Status: Active Protocol: Document 10/10/23 14:19 AM (Rec: 10/10/23 16:33 AM [id number]) Shoulder Goniometric Range of Motion Shoulder Right Flexion 122 Abduction 130 Internal Rotation Behind Back (text) L3 Comments Aply ER: C4 PT-OP-M Strength Start: 08/23/23 16:14 Freq: Status: Active Protocol: Document 08/23/23 16:15 AM (Rec: 08/23/23 17:36 AM [id number]) Shoulder Strength Shoulder Manual Muscle Testing Left Flexion 5 Normal Abduction (C5) 4+ Good+ External Rotation 5 Normal Internal Rotation 5 Normal Right Comments Not tested secondary to post- op restrictions and limited AROM PT-OP-Q Treatments Start: 08/23/23 16:14 Freq: Status: Active Protocol: Document 10/10/23 14:19 AM (Rec: 10/10/23 16:33 AM [id number]) Cardio Equipment Upper Body Ergometer (UBE) Duration (Minutes) 6 RPM 60 Seat Position 18 Height 4 Therapeutic Exercises Sidelying Exercises Flexion Side right Resistance 1 Reps/Minutes 2x10 Abduction Side right Resistance 1 Reps/Minutes 2x10 ER Side right Resistance 1 Equipment Used towel Reps/Minutes 2x10 Standing Exercises 3-way biceps curl Side right Resistance 2-3# Reps/Minutes 2x10 Resisted IR/ER Resistance [place] TB Equipment Used towel roll at elbow Reps/Minutes x10 Comments added to HEP Dowel abduction Standing Exercise Name Dowel scaption Reps/Minutes 2x10 Wall slide Reps/Minutes 2x10 Standing extension Side bilateral Resistance BTB Reps/Minutes 2x10 Comments cues for scapular control Row Side bilateral Resistance BTB Reps/Minutes 2x10 Comments cues for scapular control PT-OP-T Assessment and Plan Start: 08/23/23 16:14 Freq: Status: Active Protocol: Document 10/10/23 14:19 AM (Rec: 10/10/23 16:33 AM [id number]) Physical Therapy Assessment Goals HEP Impairment HEP [facility] Goal (LTG) Pt independent with HEP LTG Duration 10/18/23 Strength Impairment Pt with R shoulder strength impairments Short Term Goal (STG) Pt with 3+/5 R shoulder strength. 09/29/23: Pt with 3+/5 R shoulder strength STG Duration 09/20/23-achieved [facility] Goal (LTG) Pt with >4/5 R shoulder strength. LTG Duration 10/18/23 Quick Dash Impairment Pt with 70% R shoulder impairment per Quick Dash Short Term Goal (STG) Pt with 40% R shoulder impairment per Quick Dash 09/29/23: 61% on Quick dash, improved STG Duration 09/20/23 [facility] Goal (LTG) Pt with <25% R shoulder impairment per Quick Dash LTG Duration 10/18/23 ROM Impairment Pt with 85 degrees of shoulder flexion/abduction AROM. Short Term Goal (STG) Pt with 110 degrees of shoulder flexion and abduction AROM. 09/29/23: Pt with 120 deg Flex and 118 deg abd. STG Duration 09/20/23 Precipitate Washer Goal (LTG) Pt with 145 deg of shoulder flexion and abduction AROM. LTG Duration 10/18/23 Pain Impairment Pt with reported pain at 9/10 at worst. Short Term Goal (STG) Pt with reported pain at 6/10 at worst. STG Duration 09/20/23 Precipitate Washer Goal (LTG) Pt with reported pain at 3/10 at worst. LTG Duration 10/18/23 Assessment Summary Assessment Pt tolerated PRE well today, demonstrating fatigue not pain . Pt continues to demonstrate improving shoulder AROM. Pt would benefit from continued PT to progress shoulder strength and mobility for improved tolerance to functional tasks. Physical Therapy Plan Frequency and Duration Frequency of Treatment 2x/Week Duration of treatment (weeks) 8 Plan of Care Start Date 08/23/23 Plan of Care End Date 10/18/23 Therapeutic Interventions Therapeutic Interventions Home Exercise Program,Joint Mobilizations,Manual Therapy, Neuromuscular Re-education, Patient/Caregiver Education, Self-Care/Home Management,Soft Tissue Mobilization, Therapeutic Activities, Therapeutic Exercises Modalities Cold Pack/Ice Massage,Electric Stimulation,Hot Packs, Ultrasound Next Visit Focus/Plan Next Note Type Progress Note Next Visit Plan Progress note next tx session Continue to progress AROM and strength as tolerated
--- NOTE | 2023-10-12 14:27 | PT.OPPOC ---
Physical, Occupational & Speech Therapy At [facility] Current Diagnoses Pain in right shoulder (10/12/23) Bursitis of right shoulder (10/12/23) Strain of muscle(s) and tendon(s) of the rotator cuff of right shoulder, initial encounter (10/12/23) Strain of unspecified muscle, fascia and tendon at shoulder and upper arm level, right arm, initial encounter (10/12/23) Visit Care Team Role Provider Type MERLYN Nunes Family Provider Non-Staff Primary Care Provider Specialty: Family Practice Address: [address] [place] [address], [id number] Email: Kvng Abernathy PA-C Attending Provider Non-Staff Referring Provider Specialty: Medical Address: [address] [place] [address], [id number] Phone: Email: Plan Of Care PT-OP-T Assessment and Plan Start: 08/23/23 16:14 Freq: Status: Active Protocol: Document 10/12/23 14:27 AM (Rec: 10/12/23 16:27 AM [id number]) Physical Therapy Assessment Goals Work Impairment Pt reports that he feels that he is at 30% of normal functioning to be able to return to previous work duties . Longterm Goal (LTG) Pt able to participate in work or work conditioning program if appropriate. LTG Duration 12/13/22 HEP Impairment HEP Manager Corporate Communications Goal (LTG) Pt independent with HEP LTG Duration 12/13/22 Strength Impairment Pt with R shoulder strength impairments Short Term Goal (STG) Pt with 3+/5 R shoulder strength. 09/29/23: Pt with 3+/5 R shoulder strength 10/12/23: STG Duration 09/20/23-achieved Longterm Goal (LTG) Pt with >4/5 R shoulder strength. LTG Duration 12/13/22 Quick Dash Impairment Pt with 70% R shoulder impairment per Quick Dash Short Term Goal (STG) Pt with 40% R shoulder impairment per Quick Dash 09/29/23: 61% on Quick dash, improved 10/12/23: Pt with 50% score on Quick dash, improved. STG Duration 09/20/23 Manager Corporate Communications Goal (LTG) Pt with <25% R shoulder impairment per Quick Dash LTG Duration 12/13/22 ROM Impairment Pt with 85 degrees of shoulder flexion/abduction AROM. Short Term Goal (STG) Pt with 110 degrees of shoulder flexion and abduction AROM. 09/29/23: Pt with 120 deg Flex and 118 deg abd. STG Duration 09/20/23 Longterm Goal (LTG) Pt with 145 deg of shoulder flexion and abduction AROM. LTG Duration 12/13/22 Pain Impairment Pt with reported pain at 9/10 at worst. Short Term Goal (STG) Pt with reported pain at 6/10 at worst. STG Duration 09/20/23 Longterm Goal (LTG) Pt with reported pain at 3/10 at worst. LTG Duration 12/13/22 Assessment Summary Assessment Pt tolerated PRE well today with reported fatigue. Pt demonstrates improving shoulder mobility and strength compared to previous progress note, though continues to demonstrate functional limitations in both. Pt also with improved function per Quick Dash score. Pt consistently reported discomfort at biceps primarily . Pt would benefit from continued PT to progress functional strength and mobility to improve tolerance to functional tasks. POC extended to progress strength to allow pt to return to work activities. Physical Therapy Plan Frequency and Duration Frequency of Treatment 2x/Week Duration of treatment (weeks) 16 Plan of Care Start Date 08/23/23 Plan of Care End Date 12/13/23 Therapeutic Interventions Therapeutic Interventions Home Exercise Program,Joint Mobilizations,Manual Therapy, Neuromuscular Re-education, Patient/Caregiver Education, Self-Care/Home Management,Soft Tissue Mobilization, Therapeutic Activities, Therapeutic Exercises Modalities Cold Pack/Ice Massage,Electric Stimulation,Hot Packs, Ultrasound Next Visit Focus/Plan Next Note Type Progress Note Next Visit Plan Progress note next tx session Continue to progress AROM and strength as tolerated Plan of Care Dates Plan of Care Start Date 08/23/23 Plan of Care End Date 12/13/23 Electronically Signed by: Francie Mckeon, PT 10/12/23 1582 If you are in agreement with this Plan of Care, please return a signed and dated copy. I have reviewed this Plan of Care and certify that the skilled therapy services above are required to meet the patient?s needs. Physician Signature Date Printed Name and Credentials Clinical Instructor Signature Printed Name and Credentials
--- NOTE | 2023-10-12 14:27 | PT.OTN ---
Current Diagnoses Pain in right shoulder (10/12/23) Bursitis of right shoulder (10/12/23) Strain of muscle(s) and tendon(s) of the rotator cuff of right shoulder, initial encounter (10/12/23) Strain of unspecified muscle, fascia and tendon at shoulder and upper arm level, right arm, initial encounter (10/12/23) Physical Therapy Treatment Note PT-OP-A Visit Information Start: 08/23/23 16:14 Freq: Status: Active Protocol: Document 10/12/23 14:27 AM (Rec: 10/12/23 16:27 AM [id number]) Out-Patient Physical Therapy Visit Information Visit Information Visit Type Progress Note Visit Note 14 weeks today Visit Start Time 14:19 Visit Stop Time 15:04 Total Visit Minutes 45 Visit Number 09/08 PT-OP-B Current Condition Start: 08/23/23 16:14 Freq: Status: Active Protocol: Document 08/25/23 16:07 AM (Rec: 08/25/23 17:09 AM [id number]) Current Condition History of Current Condition Onset Date 07/06/23 Current Complaints R shoulder pain. History of Current Condition Pt had shoulder surgery on 07/06. Pt had a subacromial decompression/debridement with R shoulder arthroscopy, distal clavicle excision, biceps tenodesis. Pt was in a sling until the end of June. Pt reports previous R shoulder exploratory surgery in 2018. At that point he was having pain. 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 Had numbness. Pt reports partial rotator cuff tear at that point. Pt just under 7 weeks out of surgery. PT-OP-C Subjective Start: 08/23/23 16:14 Freq: Status: Active Protocol: Document 10/12/23 14:27 AM (Rec: 10/12/23 16:27 AM [id number]) OP-PT Subjective Patient Comments Patient Comments Pt reports that he will f/u with his surgeon next Tuesday. Pt will see his attending physician the following week. Patient Questionnaires Quick Dash- Upper Extremity Quick Dash UE Score 50 Quick Dash UE Impairment 40 to 59% Impaired (Score 40- 59) PT-OP-J Posture/Palpation/Skin Start: 08/23/23 16:14 Freq: Status: Active Protocol: Document 08/23/23 16:15 AM (Rec: 08/23/23 17:36 AM [id number]) Posture Evaluation Position Sitting Evaluation View Lateral Head/C-Spine Posture Forward Head Shoulder Posture (L) Forward,(R) Forward Scapula Posture (L) Protracted,(R) Protracted Skin Assessment Incisional Assessment Incision Appearance/Comments Incisions healed PT-OP-K Range of Motion Start: 08/23/23 16:14 Freq: Status: Active Protocol: Document 10/12/23 14:27 AM (Rec: 10/12/23 16:27 AM [id number]) Shoulder Goniometric Range of Motion Shoulder Right Passive External Rotation at 45 degrees 57 Abduction Right Flexion 130 Abduction 125 PT-OP-M Strength Start: 08/23/23 16:14 Freq: Status: Active Protocol: Document 10/12/23 14:27 AM (Rec: 10/12/23 16:27 AM [id number]) Shoulder Strength Shoulder Manual Muscle Testing Right Flexion 3+ Fair+ Abduction (C5) 4- Good- External Rotation 4- Good- Internal Rotation 4 Good Elbow/Forearm Strength Elbow and Forearm Manual Muscle Testing Right Flexion (C6) 4- Good- Extension (C7) 4- Good- PT-OP-Q Treatments Start: 08/23/23 16:14 Freq: Status: Active Protocol: Document 10/12/23 14:27 AM (Rec: 10/12/23 16:27 AM [id number]) Therapeutic Exercises Sidelying Exercises Flexion Side right Resistance 1 Reps/Minutes 2x10 Abduction Side right Resistance 1 Reps/Minutes 2x10 ER Side right Resistance 1 Equipment Used towel Reps/Minutes 2x10 Standing Exercises 3-way biceps curl Side bilateral Resistance 3# Reps/Minutes 2x10 Resisted IR/ER Resistance [place] TB Equipment Used towel roll at elbow Reps/Minutes 2x10 Comments added to HEP Dowel abduction Standing Exercise Name Dowel scaption Reps/Minutes 2x10 Wall slide Reps/Minutes 2x10 Standing extension Side bilateral Resistance BTB Reps/Minutes 3x10 Comments cues for scapular control Row Side bilateral Resistance BTB Reps/Minutes 3x10 Comments cues for scapular control Manual Therapy Treatment Joint Mobilizations Shoulder Direction A-P, S-I Grade III Manual Techniques PROM Type ER Body Position Supine Comments 1/2 foam roll under elbow at 45 deg PT-OP-T Assessment and Plan Start: 08/23/23 16:14 Freq: Status: Active Protocol: Document 10/12/23 14:27 AM (Rec: 10/12/23 16:27 AM [id number]) Physical Therapy Assessment Goals Work Impairment Pt reports that he feels that he is at 30% of normal functioning to be able to return to previous work duties . Insulation Worker Interior Surface Goal (LTG) Pt able to participate in work or work conditioning program if appropriate. LTG Duration 12/13/22 HEP Impairment HEP Insulation Worker Interior Surface Goal (LTG) Pt independent with HEP LTG Duration 12/13/22 Strength Impairment Pt with R shoulder strength impairments Short Term Goal (STG) Pt with 3+/5 R shoulder strength. 09/29/23: Pt with 3+/5 R shoulder strength 10/12/23: STG Duration 09/20/23-achieved Insulation Worker Interior Surface Goal (LTG) Pt with >4/5 R shoulder strength. LTG Duration 12/13/22 Quick Dash Impairment Pt with 70% R shoulder impairment per Quick Dash Short Term Goal (STG) Pt with 40% R shoulder impairment per Quick Dash 09/29/23: 61% on Quick dash, improved 10/12/23: Pt with 50% score on Quick dash, improved. STG Duration 09/20/23 Insulation Worker Interior Surface Goal (LTG) Pt with <25% R shoulder impairment per Quick Dash LTG Duration 12/13/22 ROM Impairment Pt with 85 degrees of shoulder flexion/abduction AROM. Short Term Goal (STG) Pt with 110 degrees of shoulder flexion and abduction AROM. 09/29/23: Pt with 120 deg Flex and 118 deg abd. STG Duration 09/20/23 Insulation Worker Interior Surface Goal (LTG) Pt with 145 deg of shoulder flexion and abduction AROM. LTG Duration 12/13/22 Pain Impairment Pt with reported pain at 9/10 at worst. Short Term Goal (STG) Pt with reported pain at 6/10 at worst. STG Duration 09/20/23 Insulation Worker Interior Surface Goal (LTG) Pt with reported pain at 3/10 at worst. LTG Duration 12/13/22 Assessment Summary Assessment Pt tolerated PRE well today with reported fatigue. Pt demonstrates improving shoulder mobility and strength compared to previous progress note, though continues to demonstrate functional limitations in both. Pt also with improved function per Quick Dash score. Pt consistently reported discomfort at biceps primarily . Pt would benefit from continued PT to progress functional strength and mobility to improve tolerance to functional tasks. POC extended to progress strength to allow pt to return to work activities. Physical Therapy Plan Frequency and Duration Frequency of Treatment 2x/Week Duration of treatment (weeks) 16 Plan of Care Start Date 08/23/23 Plan of Care End Date 12/13/23 Therapeutic Interventions Therapeutic Interventions Home Exercise Program,Joint Mobilizations,Manual Therapy, Neuromuscular Re-education, Patient/Caregiver Education, Self-Care/Home Management,Soft Tissue Mobilization, Therapeutic Activities, Therapeutic Exercises Modalities Cold Pack/Ice Massage,Electric Stimulation,Hot Packs, Ultrasound Next Visit Focus/Plan Next Note Type Progress Note Next Visit Plan Progress note next tx session Continue to progress AROM and strength as tolerated
--- NOTE | 2023-10-24 15:09 | PT-OP ANOTE ---
Spoke with pt re: missed 10/24 appt and pt apologizes and thought it was tomorrow. Appt r/s to tomorrow and front counter attendant notified. Pt's L&I auth is through today 10/24. Pt says surgeon has referred for more PT. I spoke w/ sales and catering coordinator for auth extension for tomorrow's appt and beyond. She will provide paperwork in the morning accordingly.
--- NOTE | 2023-10-25 15:14 | PT.OTN ---
Current Diagnoses Pain in right shoulder (10/25/23) Bursitis of right shoulder (10/25/23) Strain of muscle(s) and tendon(s) of the rotator cuff of right shoulder, initial encounter (10/25/23) Strain of unspecified muscle, fascia and tendon at shoulder and upper arm level, right arm, initial encounter (10/25/23) Physical Therapy Treatment Note PT-OP-A Visit Information Start: 08/23/23 16:14 Freq: Status: Active Protocol: Document 10/25/23 14:03 NBM (Rec: 10/25/23 15:12 [facility] [id number]) Out-Patient Physical Therapy Visit Information Visit Information Visit Type Treatment Note Visit Start Time 14:05 Visit Stop Time 14:55 Total Visit Minutes 50 Visit Number 10/09 Number of BLOOD SPLATTER ANALYST Visits 1 PT-OP-B Current Condition Start: 08/23/23 16:14 Freq: Status: Active Protocol: Document 08/25/23 16:07 AM (Rec: 08/25/23 17:09 AM [id number]) Current Condition History of Current Condition Onset Date 07/06/23 Current Complaints R shoulder pain. History of Current Condition Pt had shoulder surgery on 07/06. Pt had a subacromial decompression/debridement with R shoulder arthroscopy, distal clavicle excision, biceps tenodesis. Pt was in a sling until the end of June. Pt reports previous R shoulder exploratory surgery in 2019. At that point he was having pain. 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 Had numbness. Pt reports partial rotator cuff tear at that point. Pt just under 7 weeks out of surgery. PT-OP-C Subjective Start: 08/23/23 16:14 Freq: Status: Active Protocol: Document 10/25/23 14:03 NBM (Rec: 10/25/23 15:12 [facility] [id number]) OP-PT Subjective Patient Comments Patient Comments Chao reports his shoulder is sore today but he does not think he did anything in particular to aggravate it. PT-OP-J Posture/Palpation/Skin Start: 08/23/23 16:14 Freq: Status: Active Protocol: Document 08/23/23 16:15 AM (Rec: 08/23/23 17:36 AM [id number]) Posture Evaluation Position Sitting Evaluation View Lateral Head/C-Spine Posture Forward Head Shoulder Posture (L) Forward,(R) Forward Scapula Posture (L) Protracted,(R) Protracted Skin Assessment Incisional Assessment Incision Appearance/Comments Incisions healed PT-OP-K Range of Motion Start: 08/23/23 16:14 Freq: Status: Active Protocol: Document 10/12/23 14:27 AM (Rec: 10/12/23 16:27 AM [id number]) Shoulder Goniometric Range of Motion Shoulder Right Passive External Rotation at 45 degrees 57 Abduction Right Flexion 130 Abduction 125 PT-OP-M Strength Start: 08/23/23 16:14 Freq: Status: Active Protocol: Document 10/12/23 14:27 AM (Rec: 10/12/23 16:27 AM [id number]) Shoulder Strength Shoulder Manual Muscle Testing Right Flexion 3+ Fair+ Abduction (C5) 4- Good- External Rotation 4- Good- Internal Rotation 4 Good Elbow/Forearm Strength Elbow and Forearm Manual Muscle Testing Right Flexion (C6) 4- Good- Extension (C7) 4- Good- PT-OP-Q Treatments Start: 08/23/23 16:14 Freq: Status: Active Protocol: Document 10/25/23 14:03 NBM (Rec: 10/25/23 15:12 NBM [id number]) Cardio Equipment Upper Body Ergometer (UBE) Duration (Minutes) 6 RPM 60 Seat Position 18 Height 4 Therapeutic Exercises Sidelying Exercises Flexion Side right Resistance 1 Reps/Minutes 2x10 Abduction Sidelying Exercise Name to 90 deg Side right Resistance 1 Reps/Minutes 2x10 Comments tactile cues for scap setting to initiate ER Side right Resistance 1 Equipment Used towel Reps/Minutes 2x10 Standing Exercises Resisted IR/ER Standing Exercise Name HEP review Resistance Isanti TB Equipment Used towel roll at elbow Reps/Minutes x10 Wall slide Standing Exercise Name 1. wall slide 2. finger crawl Reps/Minutes 2x10 Standing extension Standing Exercise Name HEP review w/ K-taping Side bilateral Resistance BTB Reps/Minutes x10 Comments cues for scapular setting Row Standing Exercise Name HEP review w/ K-taping Side bilateral Resistance BTB Reps/Minutes x10 Comments cues for scapular setting, UT overactivation at en-range Manual Therapy Treatment Soft Tissue Mobilization periscapular muscles Body Location R periscapular muscles Mobilization Type Myofascial Release,Trigger Point Release Intensity/Depth Moderate Body Position Sidelying Taping Postural Treatment Focus Posture, scapular setting Type of Tape Kinesio Tape Skin Inspection intact Comments Two I strips forming X between scapulae, anchored superior angle to contralateral inferior angle. Pt i/s to remove immediately if itching/redness/irritation or else remove before 5th day - supplied adhesive remover. Self-Care/Home Management Treatment Education Patient Education Body Mechanics,Joint Protection,Pain Management, Posture Other Education Educated pt in scapulohumeral joint mechanics with reaching and lifting and scapular setting. PT-OP-T Assessment and Plan Start: 08/23/23 16:14 Freq: Status: Active Protocol: Document 10/25/23 14:03 [facility] (Rec: 10/25/23 15:12 [facility] [id number]) Physical Therapy Assessment Goals Work Impairment Pt reports that he feels that he is at 30% of normal functioning to be able to return to previous work duties . [facility] Goal (LTG) Pt able to participate in work or work conditioning program if appropriate. LTG Duration 12/13/22 HEP Impairment HEP [facility] Goal (LTG) Pt independent with HEP LTG Duration 12/13/22 Strength Impairment Pt with R shoulder strength impairments Short Term Goal (STG) Pt with 3+/5 R shoulder strength. 09/29/23: Pt with 3+/5 R shoulder strength 10/12/23: STG Duration 09/20/23-achieved Photo Lab Manager Goal (LTG) Pt with >4/5 R shoulder strength. LTG Duration 12/13/22 Quick Dash Impairment Pt with 70% R shoulder impairment per Quick Dash Short Term Goal (STG) Pt with 40% R shoulder impairment per Quick Dash 09/29/23: 61% on Quick dash, improved 10/12/23: Pt with 50% score on Quick dash, improved. STG Duration 09/20/23 Photo Lab Manager Goal (LTG) Pt with <25% R shoulder impairment per Quick Dash LTG Duration 12/13/22 ROM Impairment Pt with 85 degrees of shoulder flexion/abduction AROM. Short Term Goal (STG) Pt with 110 degrees of shoulder flexion and abduction AROM. 09/29/23: Pt with 120 deg Flex and 118 deg abd. STG Duration 09/20/23 Photo Lab Manager Goal (LTG) Pt with 145 deg of shoulder flexion and abduction AROM. LTG Duration 12/13/22 Pain Impairment Pt with reported pain at 9/10 at worst. Short Term Goal (STG) Pt with reported pain at 6/10 at worst. STG Duration 09/20/23 [facility] Goal (LTG) Pt with reported pain at 3/10 at worst. LTG Duration 12/13/22 Assessment Summary Assessment Pt presents with R shoulder and biceps soreness. Treatment focus on HEP review and postural education for scapular setting with exercises. Pt demonstrates improved self-awareness for scapular setting after initial tactile cues with each ex. Pt requires occasional cues for Upper trapezius overactivation with resisted UE ex and for pain-free range with sidelying UE ex. Kinesiotape for scapular setting applied with positive feedback for postural awareness; pt instructed for immediate removal upone signs of reaction. Ice offered and declined; pt to ice at home. Pt escorted to front desk assistant for scheduling 2x/week per PT POC and PT referal from orthoped surgeon. Physical Therapy Plan Frequency and Duration Frequency of Treatment 2x/Week Duration of treatment (weeks) 16 Plan of Care Start Date 08/23/23 Plan of Care End Date 12/13/23 Therapeutic Interventions Therapeutic Interventions Home Exercise Program,Joint Mobilizations,Manual Therapy, Neuromuscular Re-education, Patient/Caregiver Education, Self-Care/Home Management,Soft Tissue Mobilization, Therapeutic Activities, Therapeutic Exercises Modalities Cold Pack/Ice Massage,Electric Stimulation,Hot Packs, Ultrasound Next Visit Focus/Plan Next Note Type Progress Note Next Visit Plan Assess reponse to K-tape for postural awareness w/ activity . POC: Continue to progress AROM and strength as tolerated
--- NOTE | 2023-11-01 13:09 | PT.OTN ---
Current Diagnoses Pain in right shoulder (11/01/23) Bursitis of right shoulder (11/01/23) Strain of muscle(s) and tendon(s) of the rotator cuff of right shoulder, initial encounter (11/01/23) Strain of unspecified muscle, fascia and tendon at shoulder and upper arm level, right arm, initial encounter (11/01/23) Physical Therapy Treatment Note PT-OP-A Visit Information Start: 08/23/23 16:14 Freq: Status: Active Protocol: Document 11/01/23 11:24 NBM (Rec: 11/01/23 13:08 [facility] [id number]) Out-Patient Physical Therapy Visit Information Visit Information Visit Type Treatment Note Visit Note Ok to continue treating per online content coordinator as visits will continue to be covered while auth pending. Visit Start Time 11:22 Visit Stop Time 12:05 Total Visit Minutes 43 Visit Number 11/08 Number of CRITICAL CARE CNS Visits 2 PT-OP-B Current Condition Start: 08/23/23 16:14 Freq: Status: Active Protocol: Document 08/25/23 16:07 AM (Rec: 08/25/23 17:09 AM [id number]) Current Condition History of Current Condition Onset Date 07/06/23 Current Complaints R shoulder pain. History of Current Condition Pt had shoulder surgery on 07/06. Pt had a subacromial decompression/debridement with R shoulder arthroscopy, distal clavicle excision, biceps tenodesis. Pt was in a sling until the end of June. Pt reports previous R shoulder exploratory surgery in 2019. At that point he was having pain. 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 Had numbness. Pt reports partial rotator cuff tear at that point. Pt just under 7 weeks out of surgery. PT-OP-C Subjective Start: 08/23/23 16:14 Freq: Status: Active Protocol: Document 11/01/23 11:24 NBM (Rec: 11/01/23 13:08 [facility] [id number]) OP-PT Subjective Patient Comments Patient Comments Pt reports shoulder pain has improved since last visit to today. He thinks the KT tape helped but wants to feel it more. Finger crawl up wall feels more comfortable to R shoulder than wall slide. removed KT tape for him and told him there was some redness, but he says that alway happens with tape to him and he had no noticeable reaction. PT-OP-J Posture/Palpation/Skin Start: 08/23/23 16:14 Freq: Status: Active Protocol: Document 08/23/23 16:15 AM (Rec: 08/23/23 17:36 AM [id number]) Posture Evaluation Position Sitting Evaluation View Lateral Head/C-Spine Posture Forward Head Shoulder Posture (L) Forward,(R) Forward Scapula Posture (L) Protracted,(R) Protracted Skin Assessment Incisional Assessment Incision Appearance/Comments Incisions healed PT-OP-K Range of Motion Start: 08/23/23 16:14 Freq: Status: Active Protocol: Document 10/12/23 14:27 AM (Rec: 10/12/23 16:27 AM [id number]) Shoulder Goniometric Range of Motion Shoulder Right Passive External Rotation at 45 degrees 57 Abduction Right Flexion 130 Abduction 125 PT-OP-M Strength Start: 08/23/23 16:14 Freq: Status: Active Protocol: Document 10/12/23 14:27 AM (Rec: 10/12/23 16:27 AM [id number]) Shoulder Strength Shoulder Manual Muscle Testing Right Flexion 3+ Fair+ Abduction (C5) 4- Good- External Rotation 4- Good- Internal Rotation 4 Good Elbow/Forearm Strength Elbow and Forearm Manual Muscle Testing Right Flexion (C6) 4- Good- Extension (C7) 4- Good- PT-OP-Q Treatments Start: 08/23/23 16:14 Freq: Status: Active Protocol: Document 11/01/23 11:24 NBM (Rec: 11/01/23 13:08 NBM [id number]) Cardio Equipment Upper Body Ergometer (UBE) Duration (Minutes) 6 RPM 60 Seat Position 17 Height 4 Other fwd/bwd Therapeutic Exercises Standing Exercises 3-way biceps curl Standing Exercise Name supination/hammer/pronation Side bilateral Resistance 3# Reps/Minutes 2x10 Resisted IR/ER Resistance Blue TB Reps/Minutes 2x15 Dowel abduction Standing Exercise Name Dowel scaption Side right Reps/Minutes 2x10 Wall slide Standing Exercise Name 1. finger crawl 2. wall slide Reps/Minutes x10 ea Standing extension Side bilateral Resistance BTB Reps/Minutes x10 Comments cues for scapular setting Row Standing Exercise Name HEP review w/ K-taping Side bilateral Resistance BTB Reps/Minutes x10 Comments cues for scapular setting, UT overactivation at en-range Manual Therapy Treatment Soft Tissue Mobilization R biceps Body Location R biceps Mobilization Type Rolling,Strumming Intensity/Depth moder Body Position Sitting Taping Postural Treatment Focus Posture, scapular setting Type of Tape Kinesio Tape Skin Inspection intact, no redness Comments Two I strips forming X between scapulae, anchored superior angle to contralateral inferior angle. Pt i/s to remove immediately if itching/redness/irritation or else remove before 5th day - supplied adhesive remover. PT-OP-T Assessment and Plan Start: 08/23/23 16:14 Freq: Status: Active Protocol: Document 11/01/23 11:24 [facility] (Rec: 11/01/23 13:08 [facility] [id number]) Physical Therapy Assessment Goals Work Impairment Pt reports that he feels that he is at 30% of normal functioning to be able to return to previous work duties . [facility] Goal (LTG) Pt able to participate in work or work conditioning program if appropriate. LTG Duration 12/13/22 HEP Impairment HEP Estimator Jewelry Goal (LTG) Pt independent with HEP LTG Duration 12/13/22 Strength Impairment Pt with R shoulder strength impairments Short Term Goal (STG) Pt with 3+/5 R shoulder strength. 09/29/23: Pt with 3+/5 R shoulder strength 10/12/23: STG Duration 09/20/23-achieved Estimator Jewelry Goal (LTG) Pt with >4/5 R shoulder strength. LTG Duration 12/13/22 Quick Dash Impairment Pt with 70% R shoulder impairment per Quick Dash Short Term Goal (STG) Pt with 40% R shoulder impairment per Quick Dash 09/29/23: 61% on Quick dash, improved 10/12/23: Pt with 50% score on Quick dash, improved. STG Duration 09/20/23 [facility] Goal (LTG) Pt with <25% R shoulder impairment per Quick Dash LTG Duration 12/13/22 ROM Impairment Pt with 85 degrees of shoulder flexion/abduction AROM. Short Term Goal (STG) Pt with 110 degrees of shoulder flexion and abduction AROM. 09/29/23: Pt with 120 deg Flex and 118 deg abd. STG Duration 09/20/23 Estimator Jewelry Goal (LTG) Pt with 145 deg of shoulder flexion and abduction AROM. LTG Duration 12/13/22 Pain Impairment Pt with reported pain at 9/10 at worst. Short Term Goal (STG) Pt with reported pain at 6/10 at worst. STG Duration 09/20/23 Estimator Jewelry Goal (LTG) Pt with reported pain at 3/10 at worst. LTG Duration 12/13/22 Assessment Summary Assessment Treatment focus on upright posture w/ emphasis for cervical retraction and scapular setting with ex's. After warmup Kinesiotape reapplied with 100% stretch for fascilitation of scapular setting, and pt demonstrates improved self-awareness of scapular setting and requires minimal cueing for R Upper trapezius overactivation. R biceps pain increases from 4/ 10 to 7/10 end of session with overhead ex's and 3-way biceps curls, which pt describes as usual and will improve to baseline within 2-3 hours. Pt declines ice in clinic but plans to ice at home as that consistently improves the pain. Pt would benefit from education for pain-free range and appropriate pain increase with activity. Physical Therapy Plan Frequency and Duration Frequency of Treatment 2x/Week Duration of treatment (weeks) 16 Plan of Care Start Date 08/23/23 Plan of Care End Date 12/13/23 Therapeutic Interventions Therapeutic Interventions Home Exercise Program,Joint Mobilizations,Manual Therapy, Neuromuscular Re-education, Patient/Caregiver Education, Self-Care/Home Management,Soft Tissue Mobilization, Therapeutic Activities, Therapeutic Exercises Modalities Cold Pack/Ice Massage,Electric Stimulation,Hot Packs, Ultrasound Next Visit Focus/Plan Next Note Type Treatment Note Next Visit Plan education for pain-free range and appropriate pain increase with activity. POC: Continue to progress AROM and strength as tolerated
--- NOTE | 2023-11-16 14:15 | PT.OTN ---
Current Diagnoses Pain in right shoulder (11/16/23) Bursitis of right shoulder (11/16/23) Strain of muscle(s) and tendon(s) of the rotator cuff of right shoulder, initial encounter (11/16/23) Strain of unspecified muscle, fascia and tendon at shoulder and upper arm level, right arm, initial encounter (11/16/23) Physical Therapy Treatment Note PT-OP-A Visit Information Start: 08/23/23 16:14 Freq: Status: Active Protocol: Document 11/16/23 10:27 (Rec: 11/16/23 11:16 [id number]) Out-Patient Physical Therapy Visit Information Visit Information Visit Type Treatment Note Visit Start Time 10:30 Visit Stop Time 11:15 Total Visit Minutes 45 Visit Number 11/08 Number of [employer] Visits 4 PT-OP-B Current Condition Start: 08/23/23 16:14 Freq: Status: Active Protocol: Document 08/25/23 16:07 AM (Rec: 08/25/23 17:09 AM [id number]) Current Condition History of Current Condition Onset Date 07/06/23 Current Complaints R shoulder pain. History of Current Condition Pt had shoulder surgery on 07/06. Pt had a subacromial decompression/debridement with R shoulder arthroscopy, distal clavicle excision, biceps tenodesis. Pt was in a sling until the end of June. Pt reports previous R shoulder exploratory surgery in 2019. At that point he was having pain. 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 Had numbness. Pt reports partial rotator cuff tear at that point. Pt just under 7 weeks out of surgery. PT-OP-C Subjective Start: 08/23/23 16:14 Freq: Status: Active Protocol: Document 11/16/23 10:27 (Rec: 11/16/23 11:16 [id number]) OP-PT Subjective Patient Comments Patient Comments Pt reports pn 7/10 today, no known cause for increased pain , maybe slept wrong, sore in bicep area for last couple of days. PT-OP-J Posture/Palpation/Skin Start: 08/23/23 16:14 Freq: Status: Active Protocol: Document 08/23/23 16:15 AM (Rec: 08/23/23 17:36 AM [id number]) Posture Evaluation Position Sitting Evaluation View Lateral Head/C-Spine Posture Forward Head Shoulder Posture (L) Forward,(R) Forward Scapula Posture (L) Protracted,(R) Protracted Skin Assessment Incisional Assessment Incision Appearance/Comments Incisions healed PT-OP-K Range of Motion Start: 08/23/23 16:14 Freq: Status: Active Protocol: Document 10/12/23 14:27 AM (Rec: 10/12/23 16:27 AM [id number]) Shoulder Goniometric Range of Motion Shoulder Right Passive External Rotation at 45 degrees 57 Abduction Right Flexion 130 Abduction 125 PT-OP-M Strength Start: 08/23/23 16:14 Freq: Status: Active Protocol: Document 10/12/23 14:27 AM (Rec: 10/12/23 16:27 AM [id number]) Shoulder Strength Shoulder Manual Muscle Testing Right Flexion 3+ Fair+ Abduction (C5) 4- Good- External Rotation 4- Good- Internal Rotation 4 Good Elbow/Forearm Strength Elbow and Forearm Manual Muscle Testing Right Flexion (C6) 4- Good- Extension (C7) 4- Good- PT-OP-Q Treatments Start: 08/23/23 16:14 Freq: Status: Active Protocol: Document 11/16/23 10:27 SW (Rec: 11/16/23 11:16 SW [id number]) Cardio Equipment Upper Body Ergometer (UBE) Duration (Minutes) 6 RPM 60 Seat Position 18 Height 4.5 Other fwd/bwd Therapeutic Exercises Standing Exercises AROM Standing Exercise Name Scaption Side right Resistance AROM Reps/Minutes x5 Comments cues for pain free ROM 3-way biceps curl Standing Exercise Name supination/hammer/pronation Side bilateral Resistance 3# Reps/Minutes 3x10 Resisted IR/ER Standing Exercise Name Shldr IR/ER Side right Resistance Blue TB Reps/Minutes IR 3x10, ER x5>walkout x3> Isometric hold 2x30 Comments Reviewed ER d/t pt pn Dowel abduction Standing Exercise Name Dowel scaption Side right Reps/Minutes 3x10 Standing extension Side bilateral Resistance BTB Reps/Minutes 3x10 Comments cues for scapular setting Row Standing Exercise Name HEP review/progression Side bilateral Resistance BTB Reps/Minutes 3x10 Comments cues for scapular setting, UT overactivation at en-range Manual Therapy Treatment Soft Tissue Mobilization R biceps Body Location R biceps Mobilization Type Rolling,Strumming Intensity/Depth moder Body Position Sitting Self-Care/Home Management Treatment Education Patient Education Home Exercise Program,Pain Management Caregiver Education Educated pt on modalities for pn and pt self assessment of pain during HEP, educated patient on HEP progression/ regressions, reps/sets/ resistance, and appropriate mm fatigue for strength gains. PT-OP-T Assessment and Plan Start: 08/23/23 16:14 Freq: Status: Active Protocol: Document 11/16/23 10:27 (Rec: 11/16/23 11:16 [id number]) Physical Therapy Assessment Goals Work Impairment Pt reports that he feels that he is at 30% of normal functioning to be able to return to previous work duties . Snf Goal (LTG) Pt able to participate in work or work conditioning program if appropriate. LTG Duration 12/13/22 HEP Impairment HEP Snf Goal (LTG) Pt independent with HEP LTG Duration 12/13/22 Strength Impairment Pt with R shoulder strength impairments Short Term Goal (STG) Pt with 3+/5 R shoulder strength. 09/29/23: Pt with 3+/5 R shoulder strength 10/12/23: STG Duration 09/20/23-achieved Snf Goal (LTG) Pt with >4/5 R shoulder strength. LTG Duration 12/13/22 Quick Dash Impairment Pt with 70% R shoulder impairment per Quick Dash Short Term Goal (STG) Pt with 40% R shoulder impairment per Quick Dash 09/29/23: 61% on Quick dash, improved 10/12/23: Pt with 50% score on Quick dash, improved. STG Duration 09/20/23 Snf Goal (LTG) Pt with <25% R shoulder impairment per Quick Dash LTG Duration 12/13/22 ROM Impairment Pt with 85 degrees of shoulder flexion/abduction AROM. Short Term Goal (STG) Pt with 110 degrees of shoulder flexion and abduction AROM. 09/29/23: Pt with 120 deg Flex and 118 deg abd. STG Duration 09/20/23 Insurance Billing Clerk Goal (LTG) Pt with 145 deg of shoulder flexion and abduction AROM. LTG Duration 12/13/22 Pain Impairment Pt with reported pain at 9/10 at worst. Short Term Goal (STG) Pt with reported pain at 6/10 at worst. STG Duration 09/20/23 Snf Goal (LTG) Pt with reported pain at 3/10 at worst. LTG Duration 12/13/22 Assessment Summary Assessment Started session today with manual therapy d/t pt increase in pain, good tolerance, palpable trigger points in RUE , decreased tension post sustained pressure for trigger point release. Continued Shldr corrective exercises this session for increased RUE strength and ROM. Trialed progression to AROM in scapular plane, unable at this time due to limited ROM prior to onset of pain, regressed back to AAROM d/t pt tolerance. Progressed pt HEP with increased reps, educated pt on progressions/regressions . Adjusted pt ER strengthening to isometrics d/t increased pain with ROM, educated pt on importance of fatigueing mm for increased strength. Plan to assess pt tolerance next session and progress as tolerated. Physical Therapy Plan Frequency and Duration Frequency of Treatment 2x/Week Duration of treatment (weeks) 16 Plan of Care Start Date 08/23/23 Plan of Care End Date 12/13/23 Therapeutic Interventions Therapeutic Interventions Home Exercise Program,Joint Mobilizations,Manual Therapy, Neuromuscular Re-education, Patient/Caregiver Education, Self-Care/Home Management,Soft Tissue Mobilization, Therapeutic Activities, Therapeutic Exercises Modalities Cold Pack/Ice Massage,Electric Stimulation,Hot Packs, Ultrasound Next Visit Focus/Plan Next Note Type Treatment Note Next Visit Plan education for pain-free range and appropriate pain increase with activity. POC: Continue to progress AROM and strength as tolerated
--- NOTE | 2023-11-29 15:28 | PT.OTN ---
Current Diagnoses Pain in right shoulder (11/29/23) Bursitis of right shoulder (11/29/23) Strain of muscle(s) and tendon(s) of the rotator cuff of right shoulder, initial encounter (11/29/23) Strain of unspecified muscle, fascia and tendon at shoulder and upper arm level, right arm, initial encounter (11/29/23) Physical Therapy Treatment Note PT-OP-A Visit Information Start: 08/23/23 16:14 Freq: Status: Active Protocol: Document 11/29/23 11:19 NM (Rec: 11/29/23 12:25 NM [id number]) Out-Patient Physical Therapy Visit Information Visit Information Visit Type Progress Note Visit Note 02/06 Visit Start Time 11:20 Visit Stop Time 12:00 Total Visit Minutes 40 Visit Number 02/06 PT-OP-B Current Condition Start: 08/23/23 16:14 Freq: Status: Active Protocol: Document 08/25/23 16:07 AM (Rec: 08/25/23 17:09 AM [id number]) Current Condition History of Current Condition Onset Date 07/06/23 Current Complaints R shoulder pain. History of Current Condition Pt had shoulder surgery on 07/06. Pt had a subacromial decompression/debridement with R shoulder arthroscopy, distal clavicle excision, biceps tenodesis. Pt was in a sling until the end of June. Pt reports previous R shoulder exploratory surgery in 2019. At that point he was having pain. Pt's initial injury was that he went to tile picker some boxes, felt it pop. Had numbness. Pt reports partial rotator cuff tear at that point. Pt just under 7 weeks out of surgery. PT-OP-C Subjective Start: 08/23/23 16:14 Freq: Status: Active Protocol: Document 11/29/23 11:19 NM (Rec: 11/29/23 12:25 NM [id number]) OP-PT Subjective Patient Comments Patient Comments Pt reports 4/10 pain R shoulder specifically over the R biceps LH tendon. Overall, he reports improvement in R biceps pain. Reports improvement in ROM since last visit. Pain is worse with abduction. 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 PT-OP-J Posture/Palpation/Skin Start: 08/23/23 16:14 Freq: Status: Active Protocol: Document 08/23/23 16:15 AM (Rec: 08/23/23 17:36 AM [id number]) Posture Evaluation Position Sitting Evaluation View Lateral Head/C-Spine Posture Forward Head Shoulder Posture (L) Forward,(R) Forward Scapula Posture (L) Protracted,(R) Protracted Skin Assessment Incisional Assessment Incision Appearance/Comments Incisions healed PT-OP-K Range of Motion Start: 08/23/23 16:14 Freq: Status: Active Protocol: Document 11/29/23 11:19 NM (Rec: 11/29/23 12:25 NM [id number]) Shoulder Goniometric Range of Motion Shoulder Right Passive External Rotation at 45 degrees 57 Abduction Right Flexion 140 Abduction 140 External Rotation at 45 degrees 50 Abduction Comments Min pain with end range flexion; mod pain with abduction 10/12/23 PN flex 130 deg abd 125 deg PT-OP-M Strength Start: 08/23/23 16:14 Freq: Status: Active Protocol: Document 11/29/23 11:19 NM (Rec: 11/29/23 12:25 NM [id number]) Shoulder Strength Shoulder Manual Muscle Testing Left Flexion 5 Normal Abduction (C5) 4+ Good+ External Rotation 5 Normal Internal Rotation 5 Normal Right Flexion 4- Good- Abduction (C5) 4- Good- External Rotation 4- Good- Internal Rotation 4 Good Comments 10/12/23 PN flex 3+/5 abd, ER 4-/5 IR 4/5 Elbow/Forearm Strength Elbow and Forearm Manual Muscle Testing Right Flexion (C6) 4 Good Extension (C7) 4 Good Comments 10/12/23 PN 4-/5 for flex and ext PT-OP-Q Treatments Start: 08/23/23 16:14 Freq: Status: Active Protocol: Document 11/29/23 11:19 NM (Rec: 11/29/23 12:25 NM [id number]) Therapeutic Exercises Standing Exercises B ER + shldr flex Standing Exercise Name trialed Side bilateral Resistance light blue tb (progress next time as tolerated) Reps/Minutes 1x12 Comments cues for only shoulder flex no elbow flex; reports no pain with flex Raises Standing Exercise Name 1. front raises, 2. lateral raises (trialed, d/c for now) Side right Resistance 1# db Equipment Used mirror for visual cues Reps/Minutes 1x10 ea Comments no [place] compensation; reports inc pain (6/10)with abd so d/c AROM Standing Exercise Name Scaption, 1. AROM, 2. 1# db Side right Resistance AROM Reps/Minutes 1x8 ea Comments cues for pain free ROM, reports min pain with resisted scaption IR stretch Side right Equipment Used towel Reps/Minutes 5x10 Comments cues to remain pain free, gentle stretch 3-way biceps curl Standing Exercise Name supination/hammer/pronation Side right Resistance 3# Reps/Minutes 2x12 Comments reports no pain at LH biceps Resisted IR/ER Standing Exercise Name IR and ER at 45 deg abd Side right Resistance blue tb (unable to progress due to pain with progressive exercise) Reps/Minutes 2x15 ea Comments cues for neutral hand position , reports inc pain with repetition PT-OP-T Assessment and Plan Start: 08/23/23 16:14 Freq: Status: Active Protocol: Document 11/29/23 11:19 NM (Rec: 11/29/23 12:25 NM [id number]) Physical Therapy Assessment Goals Work Impairment Pt reports that he feels that he is at 30% of normal functioning to be able to return to previous work duties . [employer] Goal (LTG) Pt able to participate in work or work conditioning program if appropriate. 11/29/23: Pt reports that he feels that he could perform 40 % of his last job due to pain; he currently has a different job. LTG Duration 12/13/22 PROGRESSING HEP Impairment HEP Jail Goal (LTG) Pt independent with HEP LTG Duration 12/13/22 MET Strength Impairment Pt with R shoulder strength impairments Short Term Goal (STG) Pt with 3+/5 R shoulder strength. 09/29/23: Pt with 3+/5 R shoulder strength 10/12/23: STG Duration 09/20/23-achieved Glass Silverer Goal (LTG) Pt with >4/5 R shoulder strength. 11/29/23: R shoulder -4/5 for all motions LTG Duration 12/13/22 PROGRESSING Quick Dash Impairment Pt with 70% R shoulder impairment per Quick Dash Short Term Goal (STG) Pt with 40% R shoulder impairment per Quick Dash 09/29/23: 61% on Quick dash, improved 10/12/23: Pt with 50% score on Quick dash, improved. 11/29/23: 31 or 45% Quickdash STG Duration 09/20/23 PROGRESSING Glass Silverer Goal (LTG) Pt with <25% R shoulder impairment per Quick Dash 11/29/23: 45% quickdash LTG Duration 12/13/22 NOT MET ROM Impairment Pt with 85 degrees of shoulder flexion/abduction AROM. Short Term Goal (STG) Pt with 110 degrees of shoulder flexion and abduction AROM. 09/29/23: Pt with 120 deg Flex and 118 deg abd. STG Duration 09/20/23 Jail Goal (LTG) Pt with 145 deg of shoulder flexion and abduction AROM. 11/29/23: 140 deg flex and abd, reports 5/10 pain with abduction LTG Duration 12/13/22 PROGRESSING Pain Impairment Pt with reported pain at 9/10 at worst. Short Term Goal (STG) Pt with reported pain at 6/10 at worst. STG Duration 09/20/23 MET Glass [employer]verer Goal (LTG) Pt with reported pain at 3/10 at worst. 11/29/22: 4/10 pain is best pain , worst pain is 6/10 LTG Duration 12/13/22 NOT MET Assessment Summary Assessment Pt demos improved AROM with decreased R shoulder upper trapezius compensation during R arm elevation. He continues to have increased R shoulder pain with abduction and end range fwd flexion. Did not progress pt with level of resistance with biceps flex or shoulder ER/IR due to pain and as pt begins to perform compensations with increased resistance. He fatigues quickly, especially with increased reps. Trialed lateral raises with short lever arm but d/c due to pain. Added front raises and scaption raises wtih 1# db, cues to remain within pain free ROM to promote rotator cuff and biceps strengthening; pt with no reports of increased pain during exercises. HEP: scaption 1# db , front raise 1# db, B band ER + shoulder flexion. Pt has been seen in clinic s/p subacromial decompression, biceps tenodesis, and rotator cuff repair since IE in 07/2023 . He is now Pt is almost 21 weeks post-op. He is progressing toward goals. Currently, he has met several short term goals, but no skilled nursing goals. He demos improvements in R shoulder ROM and strength; however, he continues to lack full ROM and strength. Pt is limited by pain and his R shoulder continues to fatigue quickly, which limits his overall activity tolerance. He reports improvements in his ability to participate in ADLs/IADLs, but he continues to be restricted as a whole. 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 However, he would benefit from work conditioning in the future. Pt would benefit from further skilled PT for continued progressive resisted exercise, R shoulder ROM in order to decrease pain symptoms, improve QOL, and return to PLOF. Physical Therapy Plan Frequency and Duration Frequency of Treatment 2x/Week Duration of treatment (weeks) 24 Plan of Care Start Date 08/23/23 Plan of Care End Date 01/27/24 Therapeutic Interventions Therapeutic Interventions Home Exercise Program,Joint Mobilizations,Manual Therapy, Neuromuscular Re-education, Patient/Caregiver Education, Self-Care/Home Management,Soft Tissue Mobilization, Therapeutic Activities, Therapeutic Exercises Modalities Cold Pack/Ice Massage,Electric Stimulation,Hot Packs, Ultrasound Next Visit Focus/Plan Next Note Type Treatment Note Next Visit Plan Next tmt: serratus rhythmic stabilization, RTC/deltoid strengthening with B ER, wall walking as tolerated, continue ER/IR and increasing ABD; manual tmt with mobilization, PROM education for pain-free range and appropriate pain increase with activity. POC: Continue to progress AROM and strength as tolerated
--- NOTE | 2023-11-29 15:30 | PT.OPPOC ---
Physical, Occupational & Speech Therapy At [facility] Current Diagnoses Pain in right shoulder (11/29/23) Bursitis of right shoulder (11/29/23) Strain of muscle(s) and tendon(s) of the rotator cuff of right shoulder, initial encounter (11/29/23) Strain of unspecified muscle, fascia and tendon at shoulder and upper arm level, right arm, initial encounter (11/29/23) Visit Care Team Role Provider Type MERLYN Nunes Family Provider Non-Staff Primary Care Provider Specialty: Family Practice Address: [address] [place] [address], [id number] Email: Kvng Abernathy PA-C Attending Provider Non-Staff Referring Provider Specialty: Medical Address: [address] [place] [address], [id number] Phone: Email: Plan Of Care PT-OP-T Assessment and Plan Start: 08/23/23 16:14 Freq: Status: Active Protocol: Document 11/29/23 11:19 NM (Rec: 11/29/23 12:25 NM [id number]) Physical Therapy Assessment Goals Work Impairment Pt reports that he feels that he is at 30% of normal functioning to be able to return to previous work duties . Intermediate Goal (LTG) Pt able to participate in work or work conditioning program if appropriate. 11/29/23: Pt reports that he feels that he could perform 40 % of his last job due to pain; he currently has a different job. LTG Duration 12/13/22 PROGRESSING HEP Impairment HEP Intermediate Goal (LTG) Pt independent with HEP LTG Duration 12/13/22 MET Strength Impairment Pt with R shoulder strength impairments Short Term Goal (STG) Pt with 3+/5 R shoulder strength. 09/29/23: Pt with 3+/5 R shoulder strength 10/12/23: STG Duration 09/20/23-achieved Medical Billing Supervisor Goal (LTG) Pt with >4/5 R shoulder strength. 11/29/23: R shoulder -4/5 for all motions LTG Duration 12/13/22 PROGRESSING Quick Dash Impairment Pt with 70% R shoulder impairment per Quick Dash Short Term Goal (STG) Pt with 40% R shoulder impairment per Quick Dash 09/29/23: 61% on Quick dash, improved 10/12/23: Pt with 50% score on Quick dash, improved. 11/29/23: 31 or 45% Quickdash STG Duration 09/20/23 PROGRESSING Medical Billing Supervisor Goal (LTG) Pt with <25% R shoulder impairment per Quick Dash 11/29/23: 45% quickdash LTG Duration 12/13/22 NOT MET ROM Impairment Pt with 85 degrees of shoulder flexion/abduction AROM. Short Term Goal (STG) Pt with 110 degrees of shoulder flexion and abduction AROM. 09/29/23: Pt with 120 deg Flex and 118 deg abd. STG Duration 09/20/23 Medical Billing Supervisor Goal (LTG) Pt with 145 deg of shoulder flexion and abduction AROM. 11/29/23: 140 deg flex and abd, reports 5/10 pain with abduction LTG Duration 12/13/22 PROGRESSING Pain Impairment Pt with reported pain at 9/10 at worst. Short Term Goal (STG) Pt with reported pain at 6/10 at worst. STG Duration 09/20/23 MET Medical Billing Supervisor Goal (LTG) Pt with reported pain at 3/10 at worst. 11/29/22: 4/10 pain is best pain , worst pain is 6/10 LTG Duration 12/13/22 NOT MET Assessment Summary Assessment Pt demos improved AROM with decreased R shoulder upper trapezius compensation during R arm elevation. He continues to have increased R shoulder pain with abduction and end range fwd flexion. Did not progress pt with level of resistance with biceps flex or shoulder ER/IR due to pain and as pt begins to perform compensations with increased resistance. He fatigues quickly, especially with increased reps. Trialed lateral raises with short lever arm but d/c due to pain. Added front raises and scaption raises wtih 1# db, cues to remain within pain free ROM to promote rotator cuff and biceps strengthening; pt with no reports of increased pain during exercises. HEP: scaption 1# db , front raise 1# db, B band ER + shoulder flexion. Pt has been seen in clinic s/p subacromial decompression, biceps tenodesis, and rotator cuff repair since IE in 07/2023 . He is now Pt is almost 21 weeks post-op. He is progressing toward goals. Currently, he has met several short term goals, but no termite control representative goals. He demos improvements in R shoulder ROM and strength; however, he continues to lack full ROM and strength. Pt is limited by pain and his R shoulder continues to fatigue quickly, which limits his overall activity tolerance. He reports improvements in his ability to participate in ADLs/IADLs, but he continues to be restricted as a whole. 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 However, he would benefit from work conditioning in the future. Pt would benefit from further skilled PT for continued progressive resisted exercise, R shoulder ROM in order to decrease pain symptoms, improve QOL, and return to PLOF. Physical Therapy Plan Frequency and Duration Frequency of Treatment 2x/Week Duration of treatment (weeks) 24 Plan of Care Start Date 08/23/23 Plan of Care End Date 01/27/24 Therapeutic Interventions Therapeutic Interventions Home Exercise Program,Joint Mobilizations,Manual Therapy, Neuromuscular Re-education, Patient/Caregiver Education, Self-Care/Home Management,Soft Tissue Mobilization, Therapeutic Activities, Therapeutic Exercises Modalities Cold Pack/Ice Massage,Electric Stimulation,Hot Packs, Ultrasound Next Visit Focus/Plan Next Note Type Treatment Note Next Visit Plan Next tmt: serratus rhythmic stabilization, RTC/deltoid strengthening with B ER, wall walking as tolerated, continue ER/IR and increasing ABD; manual tmt with mobilization, PROM education for pain-free range and appropriate pain increase with activity. POC: Continue to progress AROM and strength as tolerated Plan of Care Dates Plan of Care Start Date 08/23/23 Plan of Care End Date 01/27/24 Electronically Signed by: Vandana Bob, PT 12/02/23 0722 If you are in agreement with this Plan of Care, please return a signed and dated copy. I have reviewed this Plan of Care and certify that the skilled therapy services above are required to meet the patient?s needs. Physician Signature Date Printed Name and Credentials Clinical Instructor Signature Printed Name and Credentials
--- NOTE | 2023-12-02 15:15 | PT.OTN ---
Current Diagnoses Pain in right shoulder (12/02/23) Bursitis of right shoulder (12/02/23) Strain of muscle(s) and tendon(s) of the rotator cuff of right shoulder, initial encounter (12/02/23) Strain of unspecified muscle, fascia and tendon at shoulder and upper arm level, right arm, initial encounter (12/02/23) Physical Therapy Treatment Note PT-OP-A Visit Information Start: 08/23/23 16:14 Freq: Status: Active Protocol: Document 12/02/23 14:52 SP (Rec: 12/02/23 15:54 SP [id number]) Out-Patient Physical Therapy Visit Information Visit Information Visit Type Treatment Note Visit Note 03/09 pt 22 min late for appt today, ORDER DEPARTMENT SUPERVISOR called geotechnical department manager Bouchra Decker (was unsure the process if needed). Bouchra stated is ok if just document if late arrival but does want a phone call if misses an appt and reasoning if told. Visit Start Time 14:52 Visit Stop Time 15:15 Total Visit Minutes 23 Visit Number 03/09 Number of ORDER DEPARTMENT SUPERVISOR Visits 1 PT-OP-B Current Condition Start: 08/23/23 16:14 Freq: Status: Active Protocol: Document 08/25/23 16:07 AM (Rec: 08/25/23 17:09 AM [id number]) Current Condition History of Current Condition Onset Date 07/06/23 Current Complaints R shoulder pain. History of Current Condition Pt had shoulder surgery on 07/06. Pt had a subacromial decompression/debridement with R shoulder arthroscopy, distal clavicle excision, biceps tenodesis. Pt was in a sling until the end of June. Pt reports previous R shoulder exploratory surgery in 2019. At that point he was having pain. 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 Had numbness. Pt reports partial rotator cuff tear at that point. Pt just under 7 weeks out of surgery. PT-OP-C Subjective Start: 08/23/23 16:14 Freq: Status: Active Protocol: Document 12/02/23 14:52 SP (Rec: 12/02/23 15:54 SP [id number]) OP-PT Subjective Patient Comments Patient Comments Pt reports 7/10 R shoulder pain after last tx, soreness 5 /10 at arrival. PT-OP-J Posture/Palpation/Skin Start: 08/23/23 16:14 Freq: Status: Active Protocol: Document 08/23/23 16:15 AM (Rec: 08/23/23 17:36 AM [id number]) Posture Evaluation Position Sitting Evaluation View Lateral Head/C-Spine Posture Forward Head Shoulder Posture (L) Forward,(R) Forward Scapula Posture (L) Protracted,(R) Protracted Skin Assessment Incisional Assessment Incision Appearance/Comments Incisions healed PT-OP-K Range of Motion Start: 08/23/23 16:14 Freq: Status: Active Protocol: Document 11/29/23 11:19 NM (Rec: 11/29/23 12:25 NM [id number]) Shoulder Goniometric Range of Motion Shoulder Right Passive External Rotation at 45 degrees 57 Abduction Right Flexion 140 Abduction 140 External Rotation at 45 degrees 50 Abduction Comments Min pain with end range flexion; mod pain with abduction 10/12/23 PN flex 130 deg abd 125 deg PT-OP-M Strength Start: 08/23/23 16:14 Freq: Status: Active Protocol: Document 11/29/23 11:19 NM (Rec: 11/29/23 12:25 NM [id number]) Shoulder Strength Shoulder Manual Muscle Testing Left Flexion 5 Normal Abduction (C5) 4+ Good+ External Rotation 5 Normal Internal Rotation 5 Normal Right Flexion 4- Good- Abduction (C5) 4- Good- External Rotation 4- Good- Internal Rotation 4 Good Comments 10/12/23 PN flex 3+/5 abd, ER 4-/5 IR 4/5 Elbow/Forearm Strength Elbow and Forearm Manual Muscle Testing Right Flexion (C6) 4 Good Extension (C7) 4 Good Comments 10/12/23 PN 4-/5 for flex and ext PT-OP-Q Treatments Start: 08/23/23 16:14 Freq: Status: Active Protocol: Document 12/02/23 14:52 SP (Rec: 12/02/23 15:54 SP [id number]) Therapeutic Exercises Sitting Exercises eccentric FF, Scaption, ABD Sitting Exercise Name trialed in PT, added to HEP ( declined HO) Side right Resistance TB #4 dark blue Equipment Used seated in mesh chair Reps/Minutes x6 reps each not feel to bad Comments cued level shld, allow scap & prox humeral inf glide, slow pace- improved Standing Exercises B ER + shldr flex Standing Exercise Name Added to HEP (doing at home since last tx) Side bilateral Resistance light blue tb good challenge ( progress next time as tolerated) Reps/Minutes 3x12 Comments cues for only shoulder flex no elbow flex; reports no pn w/ flex just tiring Raises Standing Exercise Name 1. front raises, 2. lateral raises (trialed, d/c for now) Side right Resistance 1#>2# DB Equipment Used mirror for visual cues Reps/Minutes 2x10 FF, x10 ABD (up to 90 deg FF for both) Comments no [place] compensation; reports inc pain (05/07) with abd not bad gain strengt IR stretch Standing Exercise Name able reach back approx L2 then use towel up to T10 Side right Equipment Used towel support Reps/Minutes 5x10 Comments cues to remain pain free/ gentle stretch 3-way biceps curl Standing Exercise Name supination/hammer/pronation Side right Resistance 3# DB 5 reps (easy) >4# DB Reps/Minutes 2x12 reps each Comments reports no pain at LH biceps, good muscle effort Resisted IR/ER Standing Exercise Name IR and ER at 45 deg abd Side right Resistance Dark blue #4 (unable to progress due to pain with progressive exercise) Equipment Used elbow at side Reps/Minutes 2x15 ea Comments cues for neutral hand position , reports inc pain with repetition Wall slide Standing Exercise Name wall slide: FF Side right Resistance AAROM Reps/Minutes 5 reps Comments cued level shld, neutral CS PT-OP-T Assessment and Plan Start: 08/23/23 16:14 Freq: Status: Active Protocol: Document 12/02/23 14:52 SP (Rec: 12/02/23 15:54 SP [id number]) Physical Therapy Assessment Goals Work Impairment Pt reports that he feels that he is at 30% of normal functioning to be able to return to previous work duties . 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 11/29/23: Pt reports that he feels that he could perform 40 % of his last job due to pain; he currently has a different job. LTG Duration 12/13/22 PROGRESSING HEP Impairment HEP Jail Goal (LTG) Pt independent with HEP LTG Duration 12/13/22 MET Strength Impairment Pt with R shoulder strength impairments Short Term Goal (STG) Pt with 3+/5 R shoulder strength. 09/29/23: Pt with 3+/5 R shoulder strength 10/12/23: STG Duration 09/20/23-achieved Jail Goal (LTG) Pt with >4/5 R shoulder strength. 11/29/23: R shoulder -4/5 for all motions LTG Duration 12/13/22 PROGRESSING Quick Dash Impairment Pt with 70% R shoulder impairment per Quick Dash Short Term Goal (STG) Pt with 40% R shoulder impairment per Quick Dash 09/29/23: 61% on Quick dash, improved 10/12/23: Pt with 50% score on Quick dash, improved. 11/29/23: 31 or 45% Quickdash STG Duration 09/20/23 PROGRESSING Director Of Human Resources Goal (LTG) Pt with <25% R shoulder impairment per Quick Dash 11/29/23: 45% quickdash LTG Duration 12/13/22 NOT MET ROM Impairment Pt with 85 degrees of shoulder flexion/abduction AROM. Short Term Goal (STG) Pt with 110 degrees of shoulder flexion and abduction AROM. 09/29/23: Pt with 120 deg Flex and 118 deg abd. STG Duration 09/20/23 Director Of Human Resources Goal (LTG) Pt with 145 deg of shoulder flexion and abduction AROM. 11/29/23: 140 deg flex and abd, reports 5/10 pain with abduction LTG Duration 12/13/22 PROGRESSING Pain Impairment Pt with reported pain at 9/10 at worst. Short Term Goal (STG) Pt with reported pain at 6/10 at worst. STG Duration 09/20/23 MET Director Of Human Resources Goal (LTG) Pt with reported pain at 3/10 at worst. 11/29/22: 4/10 pain is best pain , worst pain is 6/10 LTG Duration 12/13/22 NOT MET Assessment Summary Assessment Pt demonstrates decrease R [place] compensations and pain reports not increase with use of mirror and ed for scapular/ humeral anatomy and mechanics of inferior glide during R shld eccentric FF, scaption, ABD against resistance to progress overhead AAROM better form than use of wall slide. Pt improved self corrections low trap and rhomboid fac as reps progressed but tires > 10 reps. Pt reports anterior R shld pain 6/10 end tx but pleased with ROM and less UT recruitment end tx. Declined modalities, stated will do at home. Physical Therapy Plan Frequency and Duration Frequency of Treatment 2x/Week Duration of treatment (weeks) 24 Plan of Care Start Date 08/23/23 Plan of Care End Date 01/27/24 Therapeutic Interventions Therapeutic Interventions Home Exercise Program,Joint Mobilizations,Manual Therapy, Neuromuscular Re-education, Patient/Caregiver Education, Self-Care/Home Management,Soft Tissue Mobilization, Therapeutic Activities, Therapeutic Exercises Modalities Cold Pack/Ice Massage,Electric Stimulation,Hot Packs, Ultrasound Next Visit Focus/Plan Next Note Type Treatment Note Next Visit Plan Check response to eccentric FF /scaption/ABD added last tx. Next tmt: serratus rhythmic stabilization, RTC/deltoid strengthening with B ER, wall walking as tolerated, continue ER/IR and increasing ABD; manual tmt with mobilization, PROM education for pain-free range and appropriate pain increase with activity. POC: Continue to progress AROM and strength as tolerated
--- NOTE | 2023-12-06 12:11 | PT.OTN ---
Current Diagnoses Pain in right shoulder (12/06/23) Bursitis of right shoulder (12/06/23) Strain of muscle(s) and tendon(s) of the rotator cuff of right shoulder, initial encounter (12/06/23) Strain of unspecified muscle, fascia and tendon at shoulder and upper arm level, right arm, initial encounter (12/06/23) Physical Therapy Treatment Note PT-OP-A Visit Information Start: 08/23/23 16:14 Freq: Status: Active Protocol: Document 12/06/23 10:34 NM (Rec: 12/06/23 11:23 NM [id number]) Out-Patient Physical Therapy Visit Information Visit Information Visit Type Treatment Note Visit Note 04/08 Visit Start Time 10:33 Visit Stop Time 11:15 Total Visit Minutes 42 Visit Number 04/08 PT-OP-B Current Condition Start: 08/23/23 16:14 Freq: Status: Active Protocol: Document 08/25/23 16:07 AM (Rec: 08/25/23 17:09 AM [id number]) Current Condition History of Current Condition Onset Date 07/06/23 Current Complaints R shoulder pain. History of Current Condition Pt had shoulder surgery on 07/06. Pt had a subacromial decompression/debridement with R shoulder arthroscopy, distal clavicle excision, biceps tenodesis. Pt was in a sling until the end of June. Pt reports previous R shoulder exploratory surgery in 2019. At that point he was having pain. 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 Had numbness. Pt reports partial rotator cuff tear at that point. Pt just under 7 weeks out of surgery. PT-OP-C Subjective Start: 08/23/23 16:14 Freq: Status: Active Protocol: Document 12/06/23 10:34 NM (Rec: 12/06/23 11:23 NM [id number]) OP-PT Subjective Patient Comments Patient Comments Pt reports 3/10 R shoulder pain at arrival. He had a wound care appt yesterday so his legs are painful. He reports that his exercises are a little aggravating, but improve with repetition. PT-OP-J Posture/Palpation/Skin Start: 08/23/23 16:14 Freq: Status: Active Protocol: Document 08/23/23 16:15 AM (Rec: 08/23/23 17:36 AM [id number]) Posture Evaluation Position Sitting Evaluation View Lateral Head/C-Spine Posture Forward Head Shoulder Posture (L) Forward,(R) Forward Scapula Posture (L) Protracted,(R) Protracted Skin Assessment Incisional Assessment Incision Appearance/Comments Incisions healed PT-OP-K Range of Motion Start: 08/23/23 16:14 Freq: Status: Active Protocol: Document 11/29/23 11:19 NM (Rec: 11/29/23 12:25 NM [id number]) Shoulder Goniometric Range of Motion Shoulder Right Passive External Rotation at 45 degrees 57 Abduction Right Flexion 140 Abduction 140 External Rotation at 45 degrees 50 Abduction Comments Min pain with end range flexion; mod pain with abduction 10/12/23 PN flex 130 deg abd 125 deg PT-OP-M Strength Start: 08/23/23 16:14 Freq: Status: Active Protocol: Document 11/29/23 11:19 NM (Rec: 11/29/23 12:25 NM [id number]) Shoulder Strength Shoulder Manual Muscle Testing Left Flexion 5 Normal Abduction (C5) 4+ Good+ External Rotation 5 Normal Internal Rotation 5 Normal Right Flexion 4- Good- Abduction (C5) 4- Good- External Rotation 4- Good- Internal Rotation 4 Good Comments 10/12/23 PN flex 3+/5 abd, ER 4-/5 IR 4/5 Elbow/Forearm Strength Elbow and Forearm Manual Muscle Testing Right Flexion (C6) 4 Good Extension (C7) 4 Good Comments 10/12/23 PN 4-/5 for flex and ext PT-OP-Q Treatments Start: 08/23/23 16:14 Freq: Status: Active Protocol: Document 12/06/23 10:34 NM (Rec: 12/06/23 11:23 NM [id number]) Therapeutic Exercises Sitting Exercises Riley Sitting Exercise Name fwd flex and scaption Side right Reps/Minutes 1x10 ea Comments warm up; mirror to limit UT compensation Standing Exercises Serratus punch Side right Resistance lvl 2 teal tb Equipment Used back against wall Reps/Minutes 1x20 Comments cues for slower, control; no jerky movement, reports min pain with motion Serratus circles Standing Exercise Name arm in 90 deg abd and 45 deg ER Side right Equipment Used small orange ball Reps/Minutes 1x30 Comments cues for serratus protraction; for rhythmic stab B ER + shldr flex Standing Exercise Name Added to HEP (doing at home since last tx) Side bilateral Resistance teal tb lvl 2 Reps/Minutes 2x10 Comments reports good feedback of RTC, reports soreness but no pain Raises Standing Exercise Name 1. front raises, 2. lateral raises Side right Resistance 1# db Equipment Used mirror for visual cues Reps/Minutes 1x20 ea Comments demos improved limiting UT; unable to progress wt d/t inc pain IR stretch Standing Exercise Name able reach back approx L2 then use towel up to T10 Side right Equipment Used towel support Reps/Minutes 5x10 Comments cues to remain pain free/ gentle stretch; up to T12 Manual Therapy Treatment Soft Tissue Mobilization R biceps Body Location R biceps Mobilization Type Cross-Friction,Rolling, Strumming Intensity/Depth Moderate Body Position Supine Comments Pt complains of soft tissue restrictions and pain at R biceps LH tendon. Performed strumming, rolling, cross friction to decrease pain and promote relaxation. Manual Techniques PROM Type R GHJ flex, abd, ER at 90 deg Body Position Supine Reps/Duration 1x5x 10 hold Comments to increase flex and abd ROM, blocking scapula. Pt up to 140 fwd flex, 150 HABD, 60 deg ER at 90 deg HABD before pain and [place] compensation in standing. PT-OP-T Assessment and Plan Start: 08/23/23 16:14 Freq: Status: Active Protocol: Document 12/06/23 10:34 NM (Rec: 12/06/23 11:23 NM [id number]) Physical Therapy Assessment Goals Work Impairment Pt reports that he feels that he is at 30% of normal functioning to be able to return to previous work duties . [employer] Goal (LTG) Pt able to participate in work or work conditioning program if appropriate. 11/29/23: Pt reports that he feels that he could perform 40 % of his last job due to pain; he currently has a different job. LTG Duration 12/13/22 PROGRESSING Strength Impairment Pt with R shoulder strength impairments Short Term Goal (STG) Pt with 3+/5 R shoulder strength. 09/29/23: Pt with 3+/5 R shoulder strength 10/12/23: STG Duration 09/20/23-achieved Jail Goal (LTG) Pt with >4/5 R shoulder strength. 11/29/23: R shoulder -4/5 for all motions LTG Duration 12/13/22 PROGRESSING Quick Dash Impairment Pt with 70% R shoulder impairment per Quick Dash Short Term Goal (STG) Pt with 40% R shoulder impairment per Quick Dash 09/29/23: 61% on Quick dash, improved 10/12/23: Pt with 50% score on Quick dash, improved. 11/29/23: 31 or 45% Quickdash STG Duration 09/20/23 PROGRESSING [employer] Goal (LTG) Pt with <25% R shoulder impairment per Quick Dash 11/29/23: 45% quickdash LTG Duration 12/13/22 NOT MET ROM Impairment Pt with 85 degrees of shoulder flexion/abduction AROM. Short Term Goal (STG) Pt with 110 degrees of shoulder flexion and abduction AROM. 09/29/23: Pt with 120 deg Flex and 118 deg abd. STG Duration 09/20/23 Jail Goal (LTG) Pt with 145 deg of shoulder flexion and abduction AROM. 11/29/23: 140 deg flex and abd, reports 5/10 pain with abduction 12/02/23: 140 fwd flex, 150 deg abd LTG Duration 12/13/22 PROGRESSING Pain Impairment Pt with reported pain at 9/10 at worst. Short Term Goal (STG) Pt with reported pain at 6/10 at worst. STG Duration 09/20/23 MET [employer] Goal (LTG) Pt with reported pain at 3/10 at worst. 11/29/22: 4/10 pain is best pain , worst pain is 6/10 LTG Duration 12/13/22 NOT MET Assessment Summary Assessment Tmt focusing on greater repetitions at lower loads in order to improve endurance as strength progresses. Pt continues to fatigue quickly; however, demos improved tolerance to more reps than increased resistance at this time. Pt demos good tolerance for rotator cuff strengthening with B shoulder ER + flexion, progressed to next level theraband. Progress rotator cuff strengthening next session. Initiated serratus wall circles at 90 deg ABD/max ER in addition to serratus punch. He is able to maintain 90 deg abd with about 60 deg shoulder ER. Pt requires cues for good scapular protraction and slow, controlled motion to prevent pain. HEP updated, pt instructed to alternate different exercises per day: serratus punch, serratus wall circles. Manual tmt focused on decreasing pain and soft tissue restrictions at R biceps proximal biceps tendon. Now at fwd flex ROM 140 deg, 150 deg abd, 60 deg ER at 90 deg abd. Pt has appt with surgeon on Tuesday 12/12. Pt would benefit from skilled PT to address R shoulder/rotator cuff strength and ROM in order to improve activity tolerance and return to PLOF. Physical Therapy Plan Frequency and Duration Frequency of Treatment 2x/Week Duration of treatment (weeks) 24 Plan of Care Start Date 08/23/23 Plan of Care End Date 01/27/24 Therapeutic Interventions Therapeutic Interventions Home Exercise Program,Joint Mobilizations,Manual Therapy, Neuromuscular Re-education, Patient/Caregiver Education, Self-Care/Home Management,Soft Tissue Mobilization, Therapeutic Activities, Therapeutic Exercises Modalities Cold Pack/Ice Massage,Electric Stimulation,Hot Packs, Ultrasound Next Visit Focus/Plan Next Note Type Treatment Note Next Visit Plan Check response to eccentric FF /scaption/ABD added last tx. Trial 90 deg abd with ER/IR with light resistance band Next tmt: serratus rhythmic stabilization, RTC/deltoid strengthening with B ER, wall walking as tolerated, continue ER/IR and increasing ABD; manual tmt with mobilization, PROM education for pain-free range and appropriate pain increase with activity. POC: Continue to progress AROM and strength as tolerated
--- NOTE | 2023-12-16 16:00 | PT.OTN ---
Current Diagnoses Pain in right shoulder (12/16/23) Bursitis of right shoulder (12/16/23) Strain of muscle(s) and tendon(s) of the rotator cuff of right shoulder, initial encounter (12/16/23) Strain of unspecified muscle, fascia and tendon at shoulder and upper arm level, right arm, initial encounter (12/16/23) Physical Therapy Treatment Note PT-OP-A Visit Information Start: 08/23/23 16:14 Freq: Status: Active Protocol: Document 12/16/23 14:33 NM (Rec: 12/16/23 15:54 NM [id number]) Out-Patient Physical Therapy Visit Information Visit Information Visit Type Treatment Note Visit Note 06/08 Visit Start Time 14:35 Visit Stop Time 15:20 Total Visit Minutes 45 Visit Number 06/08 PT-OP-B Current Condition Start: 08/23/23 16:14 Freq: Status: Active Protocol: Document 08/25/23 16:07 AM (Rec: 08/25/23 17:09 AM [id number]) Current Condition History of Current Condition Onset Date 07/06/23 Current Complaints R shoulder pain. History of Current Condition Pt had shoulder surgery on 07/06. Pt had a subacromial decompression/debridement with R shoulder arthroscopy, distal clavicle excision, biceps tenodesis. Pt was in a sling until the end of June. Pt reports previous R shoulder exploratory surgery in 2019. At that point he was having pain. 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 Had numbness. Pt reports partial rotator cuff tear at that point. Pt just under 7 weeks out of surgery. PT-OP-C Subjective Start: 08/23/23 16:14 Freq: Status: Active Protocol: Document 12/16/23 14:33 NM (Rec: 12/16/23 15:54 NM [id number]) OP-PT Subjective Patient Comments Patient Comments Pt presents with 4/10 R shoulder pain. He is tired as he had to work all night. Reports compliance with exercises and thinks he is improving overall. Did not attend doctor appt on Wednesday 12/13 because of work. He rescheduled but does not know the new date. PT-OP-J Posture/Palpation/Skin Start: 08/23/23 16:14 Freq: Status: Active Protocol: Document 08/23/23 16:15 AM (Rec: 08/23/23 17:36 AM [id number]) Posture Evaluation Position Sitting Evaluation View Lateral Head/C-Spine Posture Forward Head Shoulder Posture (L) Forward,(R) Forward Scapula Posture (L) Protracted,(R) Protracted Skin Assessment Incisional Assessment Incision Appearance/Comments Incisions healed PT-OP-K Range of Motion Start: 08/23/23 16:14 Freq: Status: Active Protocol: Document 11/29/23 11:19 NM (Rec: 11/29/23 12:25 NM [id number]) Shoulder Goniometric Range of Motion Shoulder Right Passive External Rotation at 45 degrees 57 Abduction Right Flexion 140 Abduction 140 External Rotation at 45 degrees 50 Abduction Comments Min pain with end range flexion; mod pain with abduction 10/12/23 PN flex 130 deg abd 125 deg PT-OP-M Strength Start: 08/23/23 16:14 Freq: Status: Active Protocol: Document 11/29/23 11:19 NM (Rec: 11/29/23 12:25 NM [id number]) Shoulder Strength Shoulder Manual Muscle Testing Left Flexion 5 Normal Abduction (C5) 4+ Good+ External Rotation 5 Normal Internal Rotation 5 Normal Right Flexion 4- Good- Abduction (C5) 4- Good- External Rotation 4- Good- Internal Rotation 4 Good Comments 10/12/23 PN flex 3+/5 abd, ER 4-/5 IR 4/5 Elbow/Forearm Strength Elbow and Forearm Manual Muscle Testing Right Flexion (C6) 4 Good Extension (C7) 4 Good Comments 10/12/23 PN 4-/5 for flex and ext PT-OP-Q Treatments Start: 08/23/23 16:14 Freq: Status: Active Protocol: Document 12/16/23 14:33 NM (Rec: 12/16/23 15:54 NM [id number]) Therapeutic Exercises Sitting Exercises inferior glide self-mobilization Sitting Exercise Name trialed- self-mob Side right Equipment Used blue ball on plinth at shoulder height, LUE assist at prox humerus Reps/Minutes 1x10 with 2 hold Comments reports good feedback to create space at GHJ, no pain Standing Exercises lateral wall walk Standing Exercise Name wall about waist height Side bilateral Resistance lvl 2 teal tb Equipment Used band around wrists Reps/Minutes 2x10 ft Comments cued for scap setting, tension band; good control at resistance level D2 Standing Exercise Name trialed with band, but painful (7/10) with adduction so d/c Side right Resistance teal tb lvl 2 Reps/Minutes 1x5 Comments AROM painful too but less so 5 /10 Serratus punch Standing Exercise Name next time/progress serratus exercise as tolerated Raises Standing Exercise Name 1. front raises, 2. scaption Side right Resistance 2# db Equipment Used mirror for visual cues Reps/Minutes 1x10 ea Comments few instances of UT recruitment, improved control, no pain reported Resisted IR/ER Standing Exercise Name / ER/IR Side right Resistance peach tb Reps/Minutes 2x10 Comments no pain reported; at full 90 abd, but only partial ER ROM ( stretch) Manual Therapy Treatment Soft Tissue Mobilization R biceps Body Location R biceps and pectoralis near coracoid Mobilization Type Cross-Friction,Rolling, Strumming,Sustained Pressure, Trigger Point Release Intensity/Depth Moderate Body Position Supine Comments Pt complains of soft tissue restrictions and pain at R biceps LH tendon. Performed strumming, rolling, cross friction to decrease pain and promote relaxation. Also reports tenderness in pectoralis muscle near coracoid, reports no change in tenderness or discomfort with trigger point release, sustained pressure, or strumming. periscapular muscles Body Location R periscapular muscles Mobilization Type Strumming,Sustained Pressure, Trigger Point Release Intensity/Depth Moderate Body Position Sidelying Comments Trigger point of R periscapular muscles serge R teres major/minor. Reports good relief after trigger point release, sustained pressure. Joint Mobilizations Shoulder Joint GHJ Direction A-P, S-I Grade III Body Position Supine Reps/Duration 5x10 Comments Pt reports tenderness and feeling of bony block with S-I glide into abduction, as reaching above 90 deg. Reports no pain and good stretch with grade III A-P glides to promote improved flexion and ER. Prior to mobilization: 165 fwd flex and 150 deg abd with 6/ 10 pain for both at end range; ER to 45 deg at 90 deg abd, full IR at 90 deg abd After mobilization: 168 deg fwd flex and 170 deg abd without compensation or pain with both; ER is 80 deg at 90 deg abd with stretch feeling at biceps but no pain, full IR at 90 deg abd Manual Techniques PROM Type R GHJ flex, abd, ER at 90 deg Body Position Supine Reps/Duration 1x10x 10 hold Comments To pt tolerance to increase flex and abd ROM, blocking scapula. Reports good stretches into flex, abd, ER and no pain with any motion. Self-Care/Home Management Treatment Education Patient Education Home Exercise Program,Joint Protection,Pain Management, Posture Other Education HEP: ER/IR at 90/90 with light band (educated to lower abd if discomfort, d/c if painful; no pain during session just fatigue), lateral wall walks with band, inf glide self-mob with ball/pillow. 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 11/29/23: Pt reports that he feels that he could perform 40 % of his last job due to pain; he currently has a different job. LTG Duration 12/13/22 PROGRESSING Strength Impairment Pt with R shoulder strength impairments Short Term Goal (STG) Pt with 3+/5 R shoulder strength. 09/29/23: Pt with 3+/5 R shoulder strength 10/12/23: STG Duration 09/20/23-achieved Clinical Psychology Professor Goal (LTG) Pt with >4/5 R shoulder strength. 11/29/23: R shoulder -4/5 for all motions LTG Duration 12/13/22 PROGRESSING Quick Dash Impairment Pt with 70% R shoulder impairment per Quick Dash Short Term Goal (STG) Pt with 40% R shoulder impairment per Quick Dash 09/29/23: 61% on Quick dash, improved 10/12/23: Pt with 50% score on Quick dash, improved. 11/29/23: 31 or 45% Quickdash STG Duration 09/20/23 PROGRESSING Fdc Goal (LTG) Pt with <25% R shoulder impairment per Quick Dash 11/29/23: 45% quickdash LTG Duration 12/13/22 NOT MET ROM Impairment Pt with 85 degrees of shoulder flexion/abduction AROM. Short Term Goal (STG) Pt with 110 degrees of shoulder flexion and abduction AROM. 09/29/23: Pt with 120 deg Flex and 118 deg abd. STG Duration 09/20/23 Fdc Goal (LTG) Pt with 145 deg of shoulder flexion and abduction AROM. 12/16/23: Before 165 deg flex, 145 abd; After mobilization- 168 deg fwd flex and 170 deg abd without compensation or pain with both; ER is 80 deg at 90 deg abd with stretch feeling at biceps but no pain, full IR at 90 deg abd LTG Duration 12/13/22 MET Pain Impairment Pt with reported pain at 9/10 at worst. Short Term Goal (STG) Pt with reported pain at 6/10 at worst. STG Duration 09/20/23 MET Clinical Psychology Professor Goal (LTG) Pt with reported pain at 3/10 at worst. 11/29/22: 4/10 pain is best pain , worst pain is 6/10 LTG Duration 12/13/22 NOT MET Assessment Summary Assessment Pt demos improved tolerance for exercise in session today but continues to fatigue quickly, thus limiting number of activities. Trialed D2 flexion for rotator cuff and lower trap strengthening; however, pain only reported with adduction and lowering RUE toward body, 7/10, so discontinued. All other motions not painful today. Progressed to 2# dumbbell front and scaption raises at decreased repetitions; mirror for visual cues, fewer verbal cues to limit upper trap activity during elevation. Initiated lateral wall walks with band and 90 deg shoulder ER/IR using lightest resistance band to target rotator cuff; pt fatigues quickly but reports no pain and has no compensations. Requires cues for correct form and scapular setting. During manual, pt exhibits increased guarding and feels like bony block with abd inf glide. Trialed seated self inferior glide mobilization, which pt has good feedback to and is able to create improved separation of humeral head during elevation. PROM to pt tolerance but reports good stretch into flex/abd and no pain. Prior to mobilization, pt ROM is 165 deg flex and 150 deg abd; after mobilization, 168 fwd flex and 170 deg abd without pain or compensation during elevation. Pt met ROM goal. HEP updated. PT spoke with surgeon's office today at 1553 to update surgeon about pt's progress, current pain with lowering arm, and to determine when follow up visit will be (12/28/23). Pt would benefit from skilled PT for further progressive loading of R shoulder, shoulder stabilization and movement re- education in order to manage pain symptoms, improve activity tolerance, and return to PLOF. Physical Therapy Plan Frequency and Duration Frequency of Treatment 2x/Week Duration of treatment (weeks) 24 Plan of Care Start Date 08/23/23 Plan of Care End Date 01/27/24 Therapeutic Interventions Therapeutic Interventions Home Exercise Program,Joint Mobilizations,Manual Therapy, Neuromuscular Re-education, Patient/Caregiver Education, Self-Care/Home Management,Soft Tissue Mobilization, Therapeutic Activities, Therapeutic Exercises Modalities Cold Pack/Ice Massage,Electric Stimulation,Hot Packs, Ultrasound Next Visit Focus/Plan Next Note Type Treatment Note Next Visit Plan Cont 90/90 ER/IR with light band if cont to tolerate well; progress serratus strengthening and RTC/deltoid. Next tmt: serratus rhythmic stabilization, RTC/deltoid ( retry D2 flex), progress lifts as tolerated, strengthening with B ER, wall walking as tolerated, continue ER/IR and increasing ABD; manual tmt with mobilization, PROM education for pain-free range and appropriate pain increase with activity. POC: Continue to progress AROM and strength as tolerated follow up with surgeon on
--- NOTE | 2024-01-03 10:11 | PT-OP ANOTE ---
Pt was checked in for appt with this AUDIO EXPERIENCE EXPERT, but reports on 12/28/23 Dr. Aguila's PA-C advised pt the orthopedic surgeon wants him and PT to back off on activating the bicep completely for 10-12 weeks to see if that resolves the pain. He is not sure if it's just loading the bicep or complete deactivation. He reports he was advised if giving it extra time to heal is not working then the issue could be the new anchor from the last surgery so the next option given is surgery to snip the bicep. Yesterday's standing pain was 3/10 but he slept funny on it and today standing pain is 5/10. He backed off of exercises last week because he's not sure what he's allowed to do but is still stretching. His back is also bothering him on the L shoulder blade. This AUDIO EXPERIENCE EXPERT consulted with evaluating PT Vandana Bob due to change in condition who advised she will contact Dr. Aguila's office today to clarify protocol, and advised pt to also back off off stretches which activate bicep such as forward flexion. Today's appointment is rescheduled with pt to tomorrow with evaluating PT accordingly. AUDIO EXPERIENCE EXPERT reminds pt of pain interventions such as ice, diaphragmatic breathing, and bed positioning.
--- NOTE | 2024-01-04 07:29 | PT-OP ANOTE ---
PT called and left message for surgeons on 01/03/24 at 1550 regarding clarification for new protocol sent on 12/27. Asked for clinic notes, updated imaging.
--- NOTE | 2024-01-04 16:23 | PT.OTRE ---
Current Diagnoses Pain in right shoulder (01/04/24) Bursitis of right shoulder (01/04/24) Strain of muscle(s) and tendon(s) of the rotator cuff of right shoulder, initial encounter (01/04/24) Strain of unspecified muscle, fascia and tendon at shoulder and upper arm level, right arm, initial encounter (01/04/24) Past Medical History (Last Updated 11/13/23 @ 23:04 by Chelle Morel MD) Lymphedema Shoulder pain Surgical History (Last Reviewed 04/22/21 @ 02:13 by Onel Woodruff MD) Hx of cholecystectomy Visit Care Team Role Provider Type MERLYN Nunes Family Provider Non-Staff Primary Care Provider Specialty: Family Practice Address: [address] [place] [address], [address] Email: Kvng Abernathy PA-C Attending Provider Non-Staff Referring Provider Specialty: Medical Address: [address] [place] [address], [address] Phone: Email: Physical Therapy Re-Evaluation PT-OP-A Visit Information Start: 08/23/23 16:14 Freq: Status: Active Protocol: Document 01/04/24 10:43 NM (Rec: 01/04/24 11:37 NM [id number]) Out-Patient Physical Therapy Visit Information Visit Information Visit Type Re-Evaluation Visit Start Time 10:31 Visit Stop Time 11:15 Visit Number 09/08 Precautions Precautions 12/28/23: Per new protocol from surgeon, no activation of biceps for 10-12 weeks, only scapular and rhomboid exercises as long as pain free . Ok for passive motion, rotator cuff activation as long as pain free, no ROM restrictions PT-OP-B Current Condition Start: 08/23/23 16:14 Freq: Status: Active Protocol: Document 08/25/23 16:07 AM (Rec: 08/25/23 17:09 AM [id number]) Current Condition History of Current Condition Onset Date 07/06/23 Current Complaints R shoulder pain. History of Current Condition Pt had shoulder surgery on 07/06. Pt had a subacromial decompression/debridement with R shoulder arthroscopy, distal clavicle excision, biceps tenodesis. Pt was in a sling until the end of June. Pt reports previous R shoulder exploratory surgery in 2019. At that point he was having pain. Pt's initial injury was that he went to hand picker some boxes, felt it pop. Had numbness. Pt reports partial rotator cuff tear at that point. Pt just under 7 weeks out of surgery. PT-OP-C Subjective Start: 08/23/23 16:14 Freq: Status: Active Protocol: Document 01/04/24 10:43 NM (Rec: 01/04/24 11:37 NM [id number]) OP-PT Subjective Patient Comments Patient Comments Pt had surgical follow up on . Surgeon's office issue new protocol limiting active biceps activation for 10-12 weeks. Pt is concerned about how new protocol will affect PT. Current pain levels 5/10 R shoulder pain sitting. Reports sleeping weird, which lead to increased pain levels today. PT-OP-J Posture/Palpation/Skin Start: 08/23/23 16:14 Freq: Status: Active Protocol: Document 08/23/23 16:15 AM (Rec: 08/23/23 17:36 AM [id number]) Posture Evaluation Position Sitting Evaluation View Lateral Head/C-Spine Posture Forward Head Shoulder Posture (L) Forward,(R) Forward Scapula Posture (L) Protracted,(R) Protracted Skin Assessment Incisional Assessment Incision Appearance/Comments Incisions healed PT-OP-K Range of Motion Start: 08/23/23 16:14 Freq: Status: Active Protocol: Document 01/04/24 10:43 NM (Rec: 01/04/24 11:37 NM [id number]) Shoulder Goniometric Range of Motion Shoulder Measured in Degrees Right Passive Flexion 110 Abduction 150 External Rotation at 45 degrees 60 Abduction External Rotation at 0 degrees Abduction 70 Internal Rotation 70 Comments Re-evaluation 01/04: pain with passive flexion at 110 deg Right Abduction 145 External Rotation at 45 degrees 50 Abduction Internal Rotation 65 Comments 01/04/24: did not assess active flexion due to new precautions . Minimal pain reported with ER at pt end range. Last measured 12/16/23: pt had 80 deg ER and 80 deg IR at 90 deg abd, 168 deg fwd flex and 170 deg abd 11/29/23 PN: 140 deg flex, 140 deg abd, 50 deg ER at 45 deg abd 10/12/23 PN: flex 130 deg, abd 125 deg PT-OP-M Strength Start: 08/23/23 16:14 Freq: Status: Active Protocol: Document 01/04/24 10:43 NM (Rec: 01/04/24 11:37 NM [id number]) Shoulder Strength Shoulder Manual Muscle Testing Right Extension 4 Good Abduction (C5) 4- Good- External Rotation 4- Good- Internal Rotation 4 Good Comments 01/04/24: Did not MMT shoulder flexion due to new protocols; no pain with other resisted motions 10/12/23 PN flex 3+/5 abd, ER 4-/5 IR 4/5 Elbow/Forearm Strength Elbow and Forearm Manual Muscle Testing Right Comments 01/04/24: did not MMT biceps due to new precautions from physician 10/12/23 PN 4-/5 for flex and ext PT-OP-Q Treatments Start: 08/23/23 16:14 Freq: Status: Active Protocol: Document 01/04/24 10:43 NM (Rec: 01/04/24 11:37 NM [id number]) Therapeutic Exercises Sitting Exercises scapular retraction Side bilateral Reps/Minutes 1x10 with 5 hold Comments monitored for pain, reports easy inferior glide self-mobilization Sitting Exercise Name self-mob Side right Resistance L hand mobilizing R humeral head Equipment Used hand on plinth at shoulder height Reps/Minutes 1x10 with 2 hold Comments reports good feedback to create space at GHJ, no pain Standing Exercises Row Standing Exercise Name bent over row (to neutral) Side right Resistance AROM Reps/Minutes 2x10 Comments monitored for pain, reports easy Manual Therapy Treatment Soft Tissue Mobilization R biceps Body Location pectoralis near coracoid Mobilization Type Cross-Friction,Rolling, Strumming,Sustained Pressure, Trigger Point Release Intensity/Depth Superficial Body Position Supine Comments Minimal tenderness at R pec near coracoid, performed superficial rolling for muscle relaxation and pain relief periscapular muscles Body Location R rhomboids, LT, MT, lat, RTC Mobilization Type Rolling,Sustained Pressure, Trigger Point Release Intensity/Depth Moderate Body Position Sidelying Comments Minimal tenderness at periscapular muscles and rotator cuff; facilitated relaxation with superficial rolling and sustained pressure . Trigger point and moderate tenderness/restriction at R lat, near 4-5 lateral ribs. Trigger point release, rolling , superficial>moderate sustained pressure to promote relaxation Joint Mobilizations Shoulder Joint R GHJ at 45 deg abd Direction P-A, inf Grade II Body Position Hooklying Comments Grade II with oscillations for pain reduction, promote muscle relaxation at 45 deg abd for P-A mobs, < 90 deg abd for inf glides. Monitored fo rpain, no pain reported during or after mobilizations Manual Techniques PROM Body Location R GHJ abd and ER/IR Body Position Hooklying Reps/Duration 1x10 Comments To pt tolerance post STM Self-Care/Home Management Treatment Education Patient Education Body Mechanics,Home Exercise Program,Joint Protection,Pain Management,Posture Other Education 10 minutes: PT educated pt on new protocol from surgeon. Educated on continued use of modalities for pain relief, activity modification at home for compliance with new precautions (e.g. ok for R hand use of mouse for pt work, but no lifting/picking up objects with R hand d/t bicep activation). PT and pt reviewed past exercises from sessions and HEP (did not perform), discontinued previous HEPs at this time due to level of biceps activation with ea exercise at this time until further clarification received from surgeon. Educated pt on avoiding biceps activation during ADLs, work per new protocol. Depending on surgeon recommendation, pt's POC may decrease. HEP: seated scapular retractions. PT-OP-T Assessment and Plan Start: 08/23/23 16:14 Freq: Status: Active Protocol: Document 01/04/24 10:43 NM (Rec: 01/04/24 11:37 NM [id number]) Physical Therapy Assessment Goals Work Impairment Pt reports that he feels that he is at 30% of normal functioning to be able to return to previous work duties . 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 11/29/23: Pt reports that he feels that he could perform 40 % of his last job due to pain; he currently has a different job. LTG Duration GOAL NO LONGER APPLICABLE Strength Impairment Pt with R shoulder strength impairments Short Term Goal (STG) Pt with 3+/5 R shoulder strength. 09/29/23: Pt with 3+/5 R shoulder strength 10/12/23: STG Duration 09/20/23-achieved Retirement Goal (LTG) Pt with >4/5 R shoulder strength, unless otherwise recommended per new protocol. 11/29/23: R shoulder -4/5 for all motions 01/04/24: R shoulder 4-/5 for abd and ER, 4/5 for IR, flexion not tested per new protocol; PARTIALLY MET LTG Duration 03/30/24 Quick Dash Impairment Pt with 70% R shoulder impairment per Quick Dash Short Term Goal (STG) Pt with 40% R shoulder impairment per Quick Dash 09/29/23: 61% on Quick dash, improved 10/12/23: Pt with 50% score on Quick dash, improved. 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 Short Term Goal (STG) Pt with 110 degrees of shoulder flexion and abduction AROM. 09/29/23: Pt with 120 deg Flex and 118 deg abd. STG Duration 09/20/23 Rug Receiving Clerk Goal (LTG) Pt with >145 deg of shoulder flexion and abduction AROM, > 120 deg flex PROM unless otherwise recommended with protocol. 12/16/23: Before 165 deg flex, 145 abd; After mobilization- 168 deg fwd flex and 170 deg abd without compensation or pain with both; ER is 80 deg at 90 deg abd with stretch feeling at biceps but no pain, full IR at 90 deg abd 01/04/24: 65 deg IR, 50 deg ER, 145 deg ABD, passive flexion LTG Duration 12/13/22 MET, Updated for new protocol 03/30/24 Pain Impairment Pt with reported pain at 9/10 at worst. Short Term Goal (STG) Pt with reported pain at 6/10 at worst. STG Duration 09/20/23 MET Rug Receiving Clerk Goal (LTG) Pt with reported pain at 3/10 at worst. 11/29/22: 4/10 pain is best pain , worst pain is 6/10 01/04/24: Pain 5/10- NOT MET LTG Duration 03/30/24 Assessment Summary Assessment Majority of session spend educating pt on new precautions, protocol, exercises, activities involving biceps activation as pt is now limited per new protocol from surgeon about not activating biceps for 10- 12 weeks. Manual treatment consisting of decreasing soft tissue restrictions for pt. Pt has trigger point at R latissimus dorsi, able to facilitate muscle relaxation with trigger point release and rolling. Avoided biceps soft tissue mobilization until receiving further clarification from surgeon. Initiated seated scapular retractions with arms supported on pillow, bent over rows AROM to neutral. Continued pt self inferior glide mobilization for improved R GHJ abduction. Currently discontinued all pt' s previous HEPs until receive further clarification from surgeon regarding new protocol . Issued new HEP beginning with scapular retractions for postural and rhomboid strengthening. Pt has been seen s/p R subacromial decompression since July 2023. He is currently 6 months post op. Pt had follow up with surgeon on 12/28. He has recently had increased pain with shoulder elevation and loaded movements as he has been progressing toward rotation in greater abduction. Currently, pt has new protocol for same dx limiting biceps activation for 10-12 weeks. On 12/16/23, pt had full, pain free AROM and 4 -/5 strength. At re-evaluation , pt has 4-/5 MMT strength for R shoulder ER/abd and 4/5 for IR. Currently, pt has 65 deg IR and 50 deg ER at 0 deg ABD, and 145 deg ABD. Did not muscle test or AROM of R shoulder flexion per new protocol. Pt would benefit from further scapular control. Goals updated to reflect current status. 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 Pt is now receiving lymphedema treatment on personal insurance, so visit frequency will decrease due to pt's work schedule and other treatments. Pt would benefit from skilled PT for progressive R shoulder mobility and strengthening within confines of new protocol in order to decrease pain levels and improve activity tolerance for return to PLOF unless otherwise recommended. Physical Therapy Plan Frequency and Duration Frequency of Treatment 1-2/wk Duration of treatment (weeks) 12 Plan of Care Start Date 01/04/24 Plan of Care End Date 03/30/24 Therapeutic Interventions Therapeutic Interventions Home Exercise Program,Joint Mobilizations,Manual Therapy, Neuromuscular Re-education, Patient/Caregiver Education, Self-Care/Home Management,Soft Tissue Mobilization, Therapeutic Activities, Therapeutic Exercises Modalities Cold Pack/Ice Massage,Electric Stimulation,Hot Packs, Ultrasound Next Visit Focus/Plan Next Note Type Treatment Note Next Visit Plan Protocol for no active biceps All other strengthening ok if pain free per surgeon's office Manual: prn for pain relief, joint mobilizations, 1st rib Progress rotator cuff pain from from 0 deg abd > 45 deg ( no 90/90 yet), progress periscapular strengthening and rhomboid POC: Continue to progress AROM and strength as tolerated
--- NOTE | 2024-01-05 16:57 | PT-OP ANOTE ---
Addendum entered and electronically signed by Vandana Bob PT 01/09/24 16:20: Verbal conversation with pt about PT conversation with PA. PT recommended pt still discontinue previous HEP until next session when they can be reviewed with pt to ensure compliance with new protocol. Pt verbalizes understanding and wants to make a new sheet of exercises that are allowed at upcoming session Original Note: PT spoke with PA Frances Presley on 01/05 at 1208 pm regarding new protocol. Per PA, pt should not perform active biceps contraction (elbow flex or shoulder flexion x10-12 weeks) due to pain with loaded contraction. Passive ROM ok as long as pain free. However, pt is allowed to proceed with all other PT loaded and unloaded re rotator cuff, periscapular, rhomboids, etc as long as pain free for pt. PT told PA that she would follow up if pt needs new referral for PT due to change in status after discussing situation with insurance as pt is beginning lymphedema treatment next week too
--- NOTE | 2024-01-13 15:36 | PT.OTN ---
Current Diagnoses Pain in right shoulder (01/13/24) Bursitis of right shoulder (01/13/24) Strain of muscle(s) and tendon(s) of the rotator cuff of right shoulder, initial encounter (01/13/24) Strain of unspecified muscle, fascia and tendon at shoulder and upper arm level, right arm, initial encounter (01/13/24) Physical Therapy Treatment Note PT-OP-A Visit Information Start: 08/23/23 16:14 Freq: Status: Active Protocol: Document 01/13/24 08:32 AB (Rec: 01/13/24 15:36 AB [id number]) Out-Patient Physical Therapy Visit Information Visit Information Visit Type Treatment Note Visit Start Time 14:33 Visit Stop Time 15:18 Visit Number 10/09 Number of SLITTER SERVICE AND SETTER Visits 1 Precautions Precautions 12/28/23: Per new protocol from surgeon, no activation of biceps for 10-12 weeks, only scapular and rhomboid exercises as long as pain free . Ok for passive motion, rotator cuff activation as long as pain free, no ROM restrictions PT-OP-B Current Condition Start: 08/23/23 16:14 Freq: Status: Active Protocol: Document 08/25/23 16:07 AM (Rec: 08/25/23 17:09 AM [id number]) Current Condition History of Current Condition Onset Date 07/06/23 Current Complaints R shoulder pain. History of Current Condition Pt had shoulder surgery on 07/06. Pt had a subacromial decompression/debridement with R shoulder arthroscopy, distal clavicle excision, biceps tenodesis. Pt was in a sling until the end of June. Pt reports previous R shoulder exploratory surgery in 2019. At that point he was having pain. Pt's initial injury was that he went to peanut picker some boxes, felt it pop. Had numbness. Pt reports partial rotator cuff tear at that point. Pt just under 7 weeks out of surgery. PT-OP-C Subjective Start: 08/23/23 16:14 Freq: Status: Active Protocol: Document 01/13/24 08:32 AB (Rec: 01/13/24 15:36 AB [id number]) OP-PT Subjective Patient Comments Patient Comments Patient reports he is not using the right UE. PT-OP-J Posture/Palpation/Skin Start: 08/23/23 16:14 Freq: Status: Active Protocol: Document 08/23/23 16:15 AM (Rec: 08/23/23 17:36 AM [id number]) Posture Evaluation Position Sitting Evaluation View Lateral Head/C-Spine Posture Forward Head Shoulder Posture (L) Forward,(R) Forward Scapula Posture (L) Protracted,(R) Protracted Skin Assessment Incisional Assessment Incision Appearance/Comments Incisions healed PT-OP-K Range of Motion Start: 08/23/23 16:14 Freq: Status: Active Protocol: Document 01/04/24 10:43 NM (Rec: 01/04/24 11:37 NM [id number]) Shoulder Goniometric Range of Motion Shoulder Right Passive Flexion 110 Abduction 150 External Rotation at 45 degrees 60 Abduction External Rotation at 0 degrees Abduction 70 Internal Rotation 70 Comments Re-evaluation 01/04: pain with passive flexion at 110 deg Right Abduction 145 External Rotation at 45 degrees 50 Abduction Internal Rotation 65 Comments 01/04/24: did not assess active flexion due to new precautions . Minimal pain reported with ER at pt end range. Last measured 12/16/23: pt had 80 deg ER and 80 deg IR at 90 deg abd, 168 deg fwd flex and 170 deg abd 11/29/23 PN: 140 deg flex, 140 deg abd, 50 deg ER at 45 deg abd 10/12/23 PN: flex 130 deg, abd 125 deg PT-OP-M Strength Start: 08/23/23 16:14 Freq: Status: Active Protocol: Document 01/04/24 10:43 NM (Rec: 01/04/24 11:37 NM [id number]) Shoulder Strength Shoulder Manual Muscle Testing Right Extension 4 Good Abduction (C5) 4- Good- External Rotation 4- Good- Internal Rotation 4 Good Comments 01/04/24: Did not MMT shoulder flexion due to new protocols; no pain with other resisted motions 10/12/23 PN flex 3+/5 abd, ER 4-/5 IR 4/5 Elbow/Forearm Strength Elbow and Forearm Manual Muscle Testing Right Comments 01/04/24: did not MMT biceps due to new precautions from physician 10/12/23 PN 4-/5 for flex and ext PT-OP-Q Treatments Start: 08/23/23 16:14 Freq: Status: Active Protocol: Document 01/13/24 08:32 AB (Rec: 01/13/24 15:36 AB [id number]) Therapeutic Exercises Sitting Exercises scapular retraction Side bilateral Reps/Minutes 2x10 with 5 hold Comments monitored for pain Standing Exercises isometric reactive shoulder ER Standing Exercise Name isometric reactive shoulder ER Side right Equipment Used peach band Reps/Minutes 2X10 Comments VC to use left UE to position right and hold band and right UE isometric reactive shoulder IR Standing Exercise Name isometric reactive shoulder IR Side right Resistance peach band Reps/Minutes 2X10 Comments VC to use left UE to hold band and position right UE Manual Therapy Treatment Soft Tissue Mobilization periscapular muscles Body Location R rhomboids, LT, MT, lat, RTC Mobilization Type Cross-Friction,Rolling, Sustained Pressure Body Position Sidelying Comments monitored for pain Manual Techniques PROM Type Flexion and ER Body Position Hooklying Reps/Duration X7 min Comments monitored for pain PT-OP-T Assessment and Plan Start: 08/23/23 16:14 Freq: Status: Active Protocol: Document 01/13/24 08:32 AB (Rec: 01/13/24 15:36 AB [id number]) Physical Therapy Assessment Goals Strength Impairment Pt with R shoulder strength impairments Short Term Goal (STG) Pt with 3+/5 R shoulder strength. 09/29/23: Pt with 3+/5 R shoulder strength 10/12/23: STG Duration 09/20/23-achieved Snf Goal (LTG) Pt with >4/5 R shoulder strength, unless otherwise recommended per new protocol. 11/29/23: R shoulder -4/5 for all motions 01/04/24: R shoulder 4-/5 for abd and ER, 4/5 for IR, flexion not tested per new protocol; PARTIALLY MET LTG Duration 03/30/24 Quick Dash Impairment Pt with 70% R shoulder impairment per Quick Dash Short Term Goal (STG) Pt with 40% R shoulder impairment per Quick Dash 09/29/23: 61% on Quick dash, improved 10/12/23: Pt with 50% score on Quick dash, improved. 11/29/23: 31 or 45% Quickdash STG Duration 09/20/23 PROGRESSING Snf Goal (LTG) Pt with <25% R shoulder impairment per Quick Dash 11/29/23: 45% quickdash- NOT MET LTG Duration 03/30/24 ROM Impairment Pt with 85 degrees of shoulder flexion/abduction AROM. Short Term Goal (STG) Pt with 110 degrees of shoulder flexion and abduction AROM. 09/29/23: Pt with 120 deg Flex and 118 deg abd. STG Duration 09/20/23 Retirement Assistant Goal (LTG) Pt with >145 deg of shoulder flexion and abduction AROM, > 120 deg flex PROM unless otherwise recommended with protocol. 12/16/23: Before 165 deg flex, 145 abd; After mobilization- 168 deg fwd flex and 170 deg abd without compensation or pain with both; ER is 80 deg at 90 deg abd with stretch feeling at biceps but no pain, full IR at 90 deg abd 01/04/24: 65 deg IR, 50 deg ER, 145 deg ABD, passive flexion LTG Duration 12/13/22 MET, Updated for new protocol 03/30/24 Pain Impairment Pt with reported pain at 9/10 at worst. Short Term Goal (STG) Pt with reported pain at 6/10 at worst. STG Duration 09/20/23 MET Snf Goal (LTG) Pt with reported pain at 3/10 at worst. 11/29/22: 4/10 pain is best pain , worst pain is 6/10 01/04/24: Pain 5/10- NOT MET LTG Duration 03/30/24 Assessment Summary Assessment Patient reports a little soreness anterior right shoulder end of session. PROM right shoulder ER and flexion continues to be limited. Chao reports having no pain with isometric reactive shoulder IR and ER. Physical Therapy Plan Frequency and Duration Frequency of Treatment 1-2/wk Duration of treatment (weeks) 12 Plan of Care Start Date 01/04/24 Plan of Care End Date 03/30/24 Next Visit Focus/Plan Next Note Type Treatment Note Next Visit Plan Protocol for no active biceps All other strengthening ok if pain free per surgeon's office Manual: prn for pain relief, joint mobilizations, 1st rib Progress rotator cuff pain from from 0 deg abd > 45 deg ( no 90/90 yet), progress periscapular strengthening and rhomboid POC: Continue to progress AROM and strength as tolerated Next: joint mobilizations
--- NOTE | 2024-01-20 16:07 | PT.OTN ---
Current Diagnoses Pain in right shoulder (01/20/24) Bursitis of right shoulder (01/20/24) Strain of muscle(s) and tendon(s) of the rotator cuff of right shoulder, initial encounter (01/20/24) Strain of unspecified muscle, fascia and tendon at shoulder and upper arm level, right arm, initial encounter (01/20/24) Physical Therapy Treatment Note PT-OP-A Visit Information Start: 08/23/23 16:14 Freq: Status: Active Protocol: Document 01/20/24 14:33 NM (Rec: 01/20/24 15:17 NM [id number]) Out-Patient Physical Therapy Visit Information Visit Information Visit Type Treatment Note Visit Start Time 14:33 Visit Stop Time 15:25 Visit Number 11/08 Precautions Precautions 12/28/23: Per new protocol from surgeon, no activation of biceps for 10-12 weeks, only scapular and rhomboid exercises as long as pain free . Ok for passive motion, rotator cuff activation as long as pain free, no ROM restrictions PT-OP-B Current Condition Start: 08/23/23 16:14 Freq: Status: Active Protocol: Document 08/25/23 16:07 AM (Rec: 08/25/23 17:09 AM [id number]) Current Condition History of Current Condition Onset Date 07/06/23 Current Complaints R shoulder pain. History of Current Condition Pt had shoulder surgery on 07/06. Pt had a subacromial decompression/debridement with R shoulder arthroscopy, distal clavicle excision, biceps tenodesis. Pt was in a sling until the end of June. Pt reports previous R shoulder exploratory surgery in 2019. At that point he was having pain. 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 Had numbness. Pt reports partial rotator cuff tear at that point. Pt just under 7 weeks out of surgery. PT-OP-C Subjective Start: 08/23/23 16:14 Freq: Status: Active Protocol: Document 01/20/24 14:33 NM (Rec: 01/20/24 15:17 NM [id number]) OP-PT Subjective Patient Comments Patient Comments Pt reports 5/10 R shoulder pain. States he has been liftig 5# with his R arm because he forgets not to lift with it, usually a milk jug. Has been using his R arm for his job, resting it on the desk to use his mouse. Reports compliance with HEP issued last session, without difficulty or pain. States he is very annoyed and confused about the whole situation regarding what he is allowed to do with his arm and he's thinking of just saying 'screw it' and using it for whatever . PT-OP-J Posture/Palpation/Skin Start: 08/23/23 16:14 Freq: Status: Active Protocol: Document 08/23/23 16:15 AM (Rec: 08/23/23 17:36 AM [id number]) Posture Evaluation Position Sitting Evaluation View Lateral Head/C-Spine Posture Forward Head Shoulder Posture (L) Forward,(R) Forward Scapula Posture (L) Protracted,(R) Protracted Skin Assessment Incisional Assessment Incision Appearance/Comments Incisions healed PT-OP-K Range of Motion Start: 08/23/23 16:14 Freq: Status: Active Protocol: Document 01/04/24 10:43 NM (Rec: 01/04/24 11:37 NM [id number]) Shoulder Goniometric Range of Motion Shoulder Right Passive Flexion 110 Abduction 150 External Rotation at 45 degrees 60 Abduction External Rotation at 0 degrees Abduction 70 Internal Rotation 70 Comments Re-evaluation 01/04: pain with passive flexion at 110 deg Right Abduction 145 External Rotation at 45 degrees 50 Abduction Internal Rotation 65 Comments 01/04/24: did not assess active flexion due to new precautions . Minimal pain reported with ER at pt end range. Last measured 12/16/23: pt had 80 deg ER and 80 deg IR at 90 deg abd, 168 deg fwd flex and 170 deg abd 11/29/23 PN: 140 deg flex, 140 deg abd, 50 deg ER at 45 deg abd 10/12/23 PN: flex 130 deg, abd 125 deg PT-OP-M Strength Start: 08/23/23 16:14 Freq: Status: Active Protocol: Document 01/04/24 10:43 NM (Rec: 01/04/24 11:37 NM [id number]) Shoulder Strength Shoulder Manual Muscle Testing Right Extension 4 Good Abduction (C5) 4- Good- External Rotation 4- Good- Internal Rotation 4 Good Comments 01/04/24: Did not MMT shoulder flexion due to new protocols; no pain with other resisted motions 10/12/23 PN flex 3+/5 abd, ER 4-/5 IR 4/5 Elbow/Forearm Strength Elbow and Forearm Manual Muscle Testing Right Comments 01/04/24: did not MMT biceps due to new precautions from physician 10/12/23 PN 4-/5 for flex and ext PT-OP-Q Treatments Start: 08/23/23 16:14 Freq: Status: Active Protocol: Document 01/20/24 14:33 NM (Rec: 01/20/24 15:17 NM [id number]) Therapeutic Exercises Sitting Exercises shoulder rolls Sitting Exercise Name posterior scap setting Side bilateral Reps/Minutes 2x10 between sets of scapular retractions and inf glides Comments monitored for pain, none reported scapular retraction Side bilateral Reps/Minutes 2x10 with 5 hold Comments monitored for pain, none reported inferior glide self-mobilization Sitting Exercise Name self-mob Side right Resistance L hand mobilizing R humeral head Equipment Used hand on plinth at shoulder height Reps/Minutes 1x10 with 2 hold Comments reports good feedback to create space at GHJ, no pain Standing Exercises posterior capsule stretch Reps/Minutes 2x30 Comments no pain reported pendulums Standing Exercise Name CW, CCW, L/R Side right Resistance PROM Reps/Minutes 30 ea direction Comments small circles cued to minimize pain isometric reactive shoulder ER Standing Exercise Name isometric reactive shoulder ER Side right Equipment Used peach band Reps/Minutes 2x10 Comments VC to use left UE to position right and hold band and right UE isometric reactive shoulder IR Standing Exercise Name isometric reactive shoulder IR Side right Resistance peach band Reps/Minutes 2x10 Comments VC to use left UE to hold band and position right UE Manual Therapy Treatment Soft Tissue Mobilization periscapular muscles Body Location R rhomboids, LT, MT, lat, RTC, UT Mobilization Type Cross-Friction,Rolling, Strumming,Sustained Pressure Body Position Sidelying Comments Performed in hooklying and sidelying to decrease soft tissue restrictions. R lat most restricted, tender. Minimal tenderness of R posterior cuff, rhomboids- decreased wtih rolling, strumming, sustained pressure. monitored for pain, none reported Joint Mobilizations Shoulder Joint R GHJ Direction inf, P-A Grade II Body Position Hooklying Reps/Duration 5x30 ea Comments For gentle pain reduction, improve PROM. Inf glide performed in both hooklying and sitting. Monitored for pain, none reported. Manual Techniques PROM Type Flexion and ER Body Position Hooklying Reps/Duration x5 min Comments Performed to pt tolerance. monitored for pain, none reported. Limitations in both, 150 deg passive flex and 60 deg passive ER Self-Care/Home Management Treatment Education Patient Education Body Mechanics,Home Exercise Program,Joint Protection,Pain Management,Posture Other Education 7 minutes: Reviewed HEP issued last session with pt. Educated pt on limiting lifting objects with RUE, particularly objects >5# due to pt reports of increased R shoulder pain with lifting objects. PT educated pt on modalities, self soft tissue mobilization for pain relief. Educated pt on taking frequent rest breaks during work as he is sitting often, recommended to perform scapular squeezes and shoulder rolls intermittently due to fwd posture. Pt verbalizes and demonstrates understanding during session PT-OP-R Modalities Start: 01/20/24 15:28 Freq: Status: Active Protocol: Document 01/20/24 14:33 NM (Rec: 01/20/24 15:30 NM [id number]) Hot Pack/Cold Pack Treatment Cold Pack Location R shoulder Patient Position Hooklying Patient Tolerance Good Comments Post-session per pt request. Reports relief after session. PT checking on pt every 5 minutes, pt reports doing ok and shoulder feels better PT-OP-T Assessment and Plan Start: 08/23/23 16:14 Freq: Status: Active Protocol: Document 01/20/24 14:33 NM (Rec: 01/20/24 15:17 NM [id number]) Physical Therapy Assessment Goals Strength Impairment Pt with R shoulder strength impairments Short Term Goal (STG) Pt with 3+/5 R shoulder strength. 09/29/23: Pt with 3+/5 R shoulder strength 10/12/23: STG Duration 09/20/23-achieved Mold Making Supervisor Goal (LTG) Pt with >4/5 R shoulder strength, unless otherwise recommended per new protocol. 11/29/23: R shoulder -4/5 for all motions 01/04/24: R shoulder 4-/5 for abd and ER, 4/5 for IR, flexion not tested per new protocol; PARTIALLY MET LTG Duration 03/30/24 Quick Dash Impairment Pt with 70% R shoulder impairment per Quick Dash Short Term Goal (STG) Pt with 40% R shoulder impairment per Quick Dash 09/29/23: 61% on Quick dash, improved 10/12/23: Pt with 50% score on Quick dash, improved. 11/29/23: 31 or 45% Quickdash STG Duration 09/20/23 PROGRESSING Mold Making Supervisor Goal (LTG) Pt with <25% R shoulder impairment per Quick Dash 11/29/23: 45% quickdash- NOT MET LTG Duration 03/30/24 ROM Impairment Pt with 85 degrees of shoulder flexion/abduction AROM. Short Term Goal (STG) Pt with 110 degrees of shoulder flexion and abduction AROM. 09/29/23: Pt with 120 deg Flex and 118 deg abd. STG Duration 09/20/23 Skilled Nursing Goal (LTG) Pt with >145 deg of shoulder flexion and abduction AROM, > 120 deg flex PROM unless otherwise recommended with protocol. 12/16/23: Before 165 deg flex, 145 abd; After mobilization- 168 deg fwd flex and 170 deg abd without compensation or pain with both; ER is 80 deg at 90 deg abd with stretch feeling at biceps but no pain, full IR at 90 deg abd 01/04/24: 65 deg IR, 50 deg ER, 145 deg ABD, passive flexion LTG Duration 12/13/22 MET, Updated for new protocol 03/30/24 Pain Impairment Pt with reported pain at 9/10 at worst. Short Term Goal (STG) Pt with reported pain at 6/10 at worst. STG Duration 09/20/23 MET Skilled Nursing Goal (LTG) Pt with reported pain at 3/10 at worst. 11/29/22: 4/10 pain is best pain , worst pain is 6/10 01/04/24: Pain 5/10- NOT MET LTG Duration 03/30/24 Assessment Summary Assessment Session focus on decreasing pt pain levels from 5/10, in addition to restoring scapular and glenohumeral mechanics within current protocol. Manual treatment to decrease soft tissue restrictions, improve passive R shoulder mobility. Pt with restrictions of R lat, decreased after trigger point release. Continues to have limitations of R passive ER (60 deg) and flexion (150 deg). 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 Initiated shoulder rolls in addition to scapular squeezes. Continued with gentle rotator cuff isometrics at 0 deg abd, pt pain free with all rotator cuff and scapular activities. Reviewed pendulums as pt has been performing them at home for pain relief; cued for smaller range, use of body more than arm for control of movement. PT strongly recommended pt follow up with surgeon's office for clarification regarding his activity levels related to ADLs and work; educated pt on following protocol, not actively using bicep for lifting objects or other repetitive motions in order to decrease inflammation per surgeon's request. Pt verbalizes agreement. Pt would benefit from skilled PT to improve R shoulder mobility and strength according to protocol in order to decrease pain symptoms and improve QOL. Physical Therapy Plan Frequency and Duration Frequency of Treatment 1-2/wk Duration of treatment (weeks) 12 Plan of Care Start Date 01/04/24 Plan of Care End Date 03/30/24 Therapeutic Interventions Therapeutic Interventions Home Exercise Program,Joint Mobilizations,Manual Therapy, Neuromuscular Re-education, Patient/Caregiver Education, Self-Care/Home Management,Soft Tissue Mobilization, Therapeutic Activities, Therapeutic Exercises Modalities Cold Pack/Ice Massage,Electric Stimulation,Hot Packs, Ultrasound Next Visit Focus/Plan Next Note Type Treatment Note Next Visit Plan Protocol for no active biceps All other strengthening ok if pain free per surgeon's office Manual: prn for pain relief, joint mobilizations, 1st rib Progress rotator cuff pain from from 0 deg abd > 45 deg ( no 90/90 yet), progress periscapular strengthening and rhomboid POC: Continue to progress AROM and strength as tolerated Next: joint mobilizations
--- NOTE | 2024-01-25 15:30 | PT.OTN ---
Current Diagnoses Pain in right shoulder (01/25/24) Bursitis of right shoulder (01/25/24) Strain of muscle(s) and tendon(s) of the rotator cuff of right shoulder, initial encounter (01/25/24) Strain of unspecified muscle, fascia and tendon at shoulder and upper arm level, right arm, initial encounter (01/25/24) Physical Therapy Treatment Note PT-OP-A Visit Information Start: 08/23/23 16:14 Freq: Status: Active Protocol: Document 01/25/24 08:22 NM (Rec: 01/25/24 09:04 NM [id number]) Out-Patient Physical Therapy Visit Information Visit Information Visit Type Treatment Note Visit Note awaiting new auth Visit Start Time 08:17 Visit Stop Time 09:00 Visit Number 12/09 PT-OP-B Current Condition Start: 08/23/23 16:14 Freq: Status: Active Protocol: Document 08/25/23 16:07 AM (Rec: 08/25/23 17:09 AM [id number]) Current Condition History of Current Condition Onset Date 07/06/23 Current Complaints R shoulder pain. History of Current Condition Pt had shoulder surgery on 07/06. Pt had a subacromial decompression/debridement with R shoulder arthroscopy, distal clavicle excision, biceps tenodesis. Pt was in a sling until the end of June. Pt reports previous R shoulder exploratory surgery in 2019. At that point he was having pain. 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 Had numbness. Pt reports partial rotator cuff tear at that point. Pt just under 7 weeks out of surgery. PT-OP-C Subjective Start: 08/23/23 16:14 Freq: Status: Active Protocol: Document 01/25/24 08:22 NM (Rec: 01/25/24 09:04 NM [id number]) OP-PT Subjective Patient Comments Patient Comments Pt presents with 4/10 R shoulder pain. Reports that his shoulder just hurts. After last session, reports 6/ 10 pain. Compliant with last issued HEP but has questions because reports anterior shoulder pain when forcibly depressing shoulder during shoulder rolls. PT-OP-J Posture/Palpation/Skin Start: 08/23/23 16:14 Freq: Status: Active Protocol: Document 08/23/23 16:15 AM (Rec: 08/23/23 17:36 AM [id number]) Posture Evaluation Position Sitting Evaluation View Lateral Head/C-Spine Posture Forward Head Shoulder Posture (L) Forward,(R) Forward Scapula Posture (L) Protracted,(R) Protracted Skin Assessment Incisional Assessment Incision Appearance/Comments Incisions healed PT-OP-K Range of Motion Start: 08/23/23 16:14 Freq: Status: Active Protocol: Document 01/04/24 10:43 NM (Rec: 01/04/24 11:37 NM [id number]) Shoulder Goniometric Range of Motion Shoulder Right Passive Flexion 110 Abduction 150 External Rotation at 45 degrees 60 Abduction External Rotation at 0 degrees Abduction 70 Internal Rotation 70 Comments Re-evaluation 01/04: pain with passive flexion at 110 deg Right Abduction 145 External Rotation at 45 degrees 50 Abduction Internal Rotation 65 Comments 01/04/24: did not assess active flexion due to new precautions . Minimal pain reported with ER at pt end range. Last measured 12/16/23: pt had 80 deg ER and 80 deg IR at 90 deg abd, 168 deg fwd flex and 170 deg abd 11/29/23 PN: 140 deg flex, 140 deg abd, 50 deg ER at 45 deg abd 10/12/23 PN: flex 130 deg, abd 125 deg PT-OP-M Strength Start: 08/23/23 16:14 Freq: Status: Active Protocol: Document 01/04/24 10:43 NM (Rec: 01/04/24 11:37 NM [id number]) Shoulder Strength Shoulder Manual Muscle Testing Right Extension 4 Good Abduction (C5) 4- Good- External Rotation 4- Good- Internal Rotation 4 Good Comments 01/04/24: Did not MMT shoulder flexion due to new protocols; no pain with other resisted motions 10/12/23 PN flex 3+/5 abd, ER 4-/5 IR 4/5 Elbow/Forearm Strength Elbow and Forearm Manual Muscle Testing Right Comments 01/04/24: did not MMT biceps due to new precautions from physician 10/12/23 PN 4-/5 for flex and ext PT-OP-Q Treatments Start: 08/23/23 16:14 Freq: Status: Active Protocol: Document 01/25/24 08:22 NM (Rec: 01/25/24 09:04 NM [id number]) Therapeutic Exercises Sitting Exercises shoulder rolls Sitting Exercise Name posterior scap setting, depression Side bilateral Equipment Used back against wall for elongated posture Reps/Minutes 1x10, 3/4 roll with relaxation vs depression Comments monitored for pain, none reported scapular retraction Side bilateral Equipment Used arms supported on pillows Reps/Minutes 2x10 with 5 hold Comments monitored for pain, none reported inferior glide self-mobilization Sitting Exercise Name inferior glide without L hand assist; slight ADD at R hand on table Side right Resistance isometric Equipment Used hand on plinth at shoulder height Reps/Minutes 1x10 with 2 hold Comments reports no pain; difficulty coordinating inf humeral glide Standing Exercises bent over protraction/retraction Standing Exercise Name arm dangling at side, shldr ER , protraction/retraction Side right Resistance AROM Equipment Used L arm stabilizing on elevated mat Reps/Minutes 2x10 with 2 hold at ea end range Comments PT tactile cue scap for retract/depress; reports no pain low row isometric Standing Exercise Name submaximal Side right Resistance submaximal, 20% pt reported force Equipment Used arm against wall, pt close to wall Reps/Minutes 10x5 Comments reports no pain; cued for scap depress/retract posterior capsule stretch Side right Equipment Used L assisting R arm Reps/Minutes 2x30 Comments no pain reported; reports good feedback with stretch pendulums Standing Exercise Name CW, CCW Side right Resistance PROM Reps/Minutes 15 ea direction Comments small circles; no pain reported Manual Therapy Treatment Soft Tissue Mobilization periscapular muscles Body Location R rhomboids, LT, MT, lat, RTC, UT Mobilization Type Cross-Friction,Rolling, Strumming,Sustained Pressure Body Position Sidelying Comments Decreased restrictions of R lat distally, still with moderate tenderness proximally near axilla. Pt has been using ball for STM at home. Minimal tenderness of R posterior cuff, rhomboids- decreased wtih rolling, strumming, sustained pressure. monitored for pain, none reported Manual Techniques Mobilization with movement Type R scapulothoracic Body Position Sidelying Reps/Duration 1x10 ea Comments PT supporting arm and facilitating at scapula for improved mechanics. Performed scapular elevation/depression, upward/downward rotation, retraction/protraction with PROM at R arm. Monitored for pain, pt reports no pain with mobilization PROM Comments see MWM above Self-Care/Home Management Treatment Education Patient Education Home Exercise Program,Joint Protection,Pain Management, Posture Other Education HEP: bent over shoulder retraction/protraction, shoulder ext/low row isometric against wall. Educated to continue modalities for pain relief, no lifting/purposeful bicep activation PT-OP-R Modalities Start: 01/20/24 15:28 Freq: Status: Active Protocol: Document 01/20/24 14:33 NM (Rec: 01/20/24 15:30 NM [id number]) Hot Pack/Cold Pack Treatment Cold Pack Location R shoulder Patient Position Hooklying Patient Tolerance Good Comments Post-session per pt request. Reports relief after session. PT checking on pt every 5 minutes, pt reports doing ok and shoulder feels better PT-OP-T Assessment and Plan Start: 08/23/23 16:14 Freq: Status: Active Protocol: Document 01/25/24 08:22 NM (Rec: 01/25/24 09:04 NM [id number]) Physical Therapy Assessment Goals Strength Impairment Pt with R shoulder strength impairments Short Term Goal (STG) Pt with 3+/5 R shoulder strength. 09/29/23: Pt with 3+/5 R shoulder strength 10/12/23: STG Duration 09/20/23-achieved Half-Way Goal (LTG) Pt with >4/5 R shoulder strength, unless otherwise recommended per new protocol. 11/29/23: R shoulder -4/5 for all motions 01/04/24: R shoulder 4-/5 for abd and ER, 4/5 for IR, flexion not tested per new protocol; PARTIALLY MET LTG Duration 03/30/24 Quick Dash Impairment Pt with 70% R shoulder impairment per Quick Dash Short Term Goal (STG) Pt with 40% R shoulder impairment per Quick Dash 09/29/23: 61% on Quick dash, improved 10/12/23: Pt with 50% score on Quick dash, improved. 11/29/23: 31 or 45% Quickdash STG Duration 09/20/23 PROGRESSING Half-Way Goal (LTG) Pt with <25% R shoulder impairment per Quick Dash 11/29/23: 45% quickdash- NOT MET LTG Duration 03/30/24 ROM Impairment Pt with 85 degrees of shoulder flexion/abduction AROM. Short Term Goal (STG) Pt with 110 degrees of shoulder flexion and abduction AROM. 09/29/23: Pt with 120 deg Flex and 118 deg abd. STG Duration 09/20/23 Half-Way Goal (LTG) Pt with >145 deg of shoulder flexion and abduction AROM, > 120 deg flex PROM unless otherwise recommended with protocol. 12/16/23: Before 165 deg flex, 145 abd; After mobilization- 168 deg fwd flex and 170 deg abd without compensation or pain with both; ER is 80 deg at 90 deg abd with stretch feeling at biceps but no pain, full IR at 90 deg abd 01/04/24: 65 deg IR, 50 deg ER, 145 deg ABD, passive flexion LTG Duration 12/13/22 MET, Updated for new protocol 03/30/24 Pain Impairment Pt with reported pain at 9/10 at worst. Short Term Goal (STG) Pt with reported pain at 6/10 at worst. STG Duration 09/20/23 MET Half-Way Goal (LTG) Pt with reported pain at 3/10 at worst. 11/29/22: 4/10 pain is best pain , worst pain is 6/10 01/04/24: Pain 5/10- NOT MET LTG Duration 03/30/24 Assessment Summary Assessment Pt tolerated session fair, reporting 5/10 pain at end of session. Session emphasis on pain reduction, scapular control, and periscapular strengthening within pain free range and within protocol. Manual treatment to decrease soft tissue restrictions, improve R scapular mechanics for improved control. Pt with good tolerance for mobilization with movement while PT supporting arm to limit bicep activation during PROM; reports no pain. Demos decreased tenderness and soft tissue restrictions of R lat and posterior cuff compared to previous sessions. Pt with improved compliance with modalities and soft tissue mobilization for pain relief, in addition to HEP. Gentle initiation of scapular retraction/protraction AROM and isometric to address scapular and rhomboid exercises per protocol. PT providing verbal and tactile cues for scapular motion; pt with improved control with reps. Added to HEP as pt pain free, demos good mechanics; educated to discontinue if pain levels increase with activity. Pt would benefit from skilled PT for R shoulder periscapular strengthening/ mobility in order to decrease pain symptoms, improve QOL, and improve activity tolerance . Physical Therapy Plan Frequency and Duration Frequency of Treatment 1-2/wk Duration of treatment (weeks) 12 Plan of Care Start Date 01/04/24 Plan of Care End Date 03/30/24 Therapeutic Interventions Therapeutic Interventions Home Exercise Program,Joint Mobilizations,Manual Therapy, Neuromuscular Re-education, Patient/Caregiver Education, Self-Care/Home Management,Soft Tissue Mobilization, Therapeutic Activities, Therapeutic Exercises Modalities Cold Pack/Ice Massage,Electric Stimulation,Hot Packs, Ultrasound Next Visit Focus/Plan Next Note Type Treatment Note Next Visit Plan Protocol for no active biceps All other strengthening ok if pain free per surgeon's office Manual: prn for pain relief Continue periscapular strengthening/mobility: low row isometric, scapular retraction/protraction, inferior glide, isometric ER/ IR at 0 deg abd (progress abd as able w/o biceps)
--- NOTE | 2024-02-17 15:46 | PT.OTN ---
Current Diagnoses Pain in right shoulder (02/17/24) Bursitis of right shoulder (02/17/24) Strain of muscle(s) and tendon(s) of the rotator cuff of right shoulder, initial encounter (02/17/24) Strain of unspecified muscle, fascia and tendon at shoulder and upper arm level, right arm, initial encounter (02/17/24) Physical Therapy Treatment Note PT-OP-A Visit Information Start: 08/23/23 16:14 Freq: Status: Active Protocol: Document 02/17/24 14:34 NM (Rec: 02/17/24 15:46 NM [id number]) Out-Patient Physical Therapy Visit Information Visit Information Visit Type Progress Note Visit Start Time 14:34 Visit Stop Time 15:25 Visit Number 02/06 PT-OP-B Current Condition Start: 08/23/23 16:14 Freq: Status: Active Protocol: Document 08/25/23 16:07 AM (Rec: 08/25/23 17:09 AM [id number]) Current Condition History of Current Condition Onset Date 07/06/23 Current Complaints R shoulder pain. History of Current Condition Pt had shoulder surgery on 07/06. Pt had a subacromial decompression/debridement with R shoulder arthroscopy, distal clavicle excision, biceps tenodesis. Pt was in a sling until the end of June. Pt reports previous R shoulder exploratory surgery in 2019. At that point he was having pain. 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 Had numbness. Pt reports partial rotator cuff tear at that point. Pt just under 7 weeks out of surgery. PT-OP-C Subjective Start: 08/23/23 16:14 Freq: Status: Active Protocol: Document 02/17/24 14:34 NM (Rec: 02/17/24 15:46 NM [id number]) OP-PT Subjective Patient Comments Patient Comments Pt reports 4/10 R shoulder pain today. He saw Dr. Segura last week and was provided new protocol. Pt reports that he hasn't slept in several days due to work and daily appts. He has an abscess in his leg which is not healing. At end of session, reports 3/ 10 pain. PT-OP-J Posture/Palpation/Skin Start: 08/23/23 16:14 Freq: Status: Active Protocol: Document 08/23/23 16:15 AM (Rec: 08/23/23 17:36 AM [id number]) Posture Evaluation Position Sitting Evaluation View Lateral Head/C-Spine Posture Forward Head Shoulder Posture (L) Forward,(R) Forward Scapula Posture (L) Protracted,(R) Protracted Skin Assessment Incisional Assessment Incision Appearance/Comments Incisions healed PT-OP-K Range of Motion Start: 08/23/23 16:14 Freq: Status: Active Protocol: Document 02/17/24 14:34 NM (Rec: 02/17/24 15:46 NM [id number]) Shoulder Goniometric Range of Motion Shoulder Right Passive Comments Re-evaluation 01/04: pain with passive flexion at 110 deg Left Active Shoulder ROM WFL Yes Testing Position Sitting Flexion 145 Abduction 150 Internal Rotation Behind Back (text) T10 Comments Aply ER: T5 02/17/24: 160 deg flex, 170 deg abd, T4 ER, T7 IR, 75 deg ER at 0 deg abd Right Abduction 145 External Rotation at 45 degrees 50 Abduction Internal Rotation 65 Comments 01/04/24: did not assess active flexion due to new precautions . Minimal pain reported with ER at pt end range. Last measured 12/16/23: pt had 80 deg ER and 80 deg IR at 90 deg abd, 168 deg fwd flex and 170 deg abd 11/29/23 PN: 140 deg flex, 140 deg abd, 50 deg ER at 45 deg abd 10/12/23 PN: flex 130 deg, abd 125 deg 02/17/24: 165 deg flex, 165 deg abd (pop with both), T12 IR, T4 ER apley, 65 deg ER (no pain) PT-OP-M Strength Start: 08/23/23 16:14 Freq: Status: Active Protocol: Document 02/17/24 14:34 NM (Rec: 02/17/24 15:46 NM [id number]) Shoulder Strength Shoulder Manual Muscle Testing Left Flexion 5 Normal Abduction (C5) 4+ Good+ External Rotation 5 Normal Internal Rotation 5 Normal Right Extension 4 Good Abduction (C5) 4- Good- External Rotation 4- Good- Internal Rotation 4 Good Comments 02/17/24: 4-/5 MMT flex,abd, ER with 4/10 pain; 4/5 IR painfree 01/04/24: Did not MMT shoulder flexion due to new protocols; no pain with other resisted motions 10/12/23 PN flex 3+/5 abd, ER 4-/5 IR 4/5 PT-OP-Q Treatments Start: 08/23/23 16:14 Freq: Status: Active Protocol: Document 02/17/24 14:34 NM (Rec: 02/17/24 15:46 NM [id number]) Therapeutic Exercises Supine Exercises flexion Side bilateral Resistance R arm eccentric flexion resisting against L arm Reps/Minutes 2x5 Comments no increased pain with resistance Sidelying Exercises Flexion Sidelying Exercise Name R arm resisting eccentrically against L arm Side right Reps/Minutes 2x5 Comments no increase in pain with resistance, cued for scap setting prior to lift Abduction Sidelying Exercise Name to 90 deg Side right Resistance 1 Reps/Minutes 2x5 Comments tactile cues for scap setting prior to initation ER Side right Resistance 1 Equipment Used towel Reps/Minutes 2x5 Comments PT facilitating post scap setting Standing Exercises wall lift off Standing Exercise Name AROM flexion on wall,R resist on L for rotator cuff activation Side right Reps/Minutes 2x5 Comments decrease in pain with resistance when lowering lat stretch Side right Equipment Used wall Reps/Minutes 1x30 Comments reports 4/10 pain with stretch bent over protraction/retraction Standing Exercise Name yadira garcia row Side right Resistance lvl 1 Reps/Minutes 1x10 Comments no increase in pain posterior capsule stretch Side right Equipment Used L assisting R arm Reps/Minutes 1x60 Comments no pain reported; reports good feedback with stretch Resisted IR/ER Standing Exercise Name ER at 0 deg abd Side right Resistance lvl 1 tb Reps/Minutes 2x5 Comments 3/10 Manual Therapy Treatment Soft Tissue Mobilization periscapular muscles Body Location R rhomboids, lat, Rotator cuff Mobilization Type Rolling,Strumming,Sustained Pressure,Trigger Point Release Intensity/Depth Moderate Body Position Sidelying Comments Continues to have increased tendernes of R lat near axilla and teres muscles. Trigger point near lower scapular border, decreased with release but continues to be tender. Reviewed education on soft tissue mobilization as part of HEP. Joint Mobilizations scapulothoracic Joint R scapulothoracic Direction elevation/depression, upward/ downward rotation Grade III Body Position Sidelying Reps/Duration 1x10 ea Comments AAROM>AROM with PT facilitating at scapula during R sidelying flexion/abduction . Decreased elevation initially but good rotation. Self-Care/Home Management Treatment Education Patient Education Home Exercise Program,Joint Protection,Pain Management, Posture Other Education 3 minutes- educated on sleep, sitting ergonomics, continue with recent HEP until determine tolerance for return to exercise. Modalities for pain relief, soft tissue mobilization PT-OP-R Modalities Start: 01/20/24 15:28 Freq: Status: Active Protocol: Document 02/17/24 14:34 NM (Rec: 02/17/24 15:46 NM [id number]) Hot Pack/Cold Pack Treatment Cold Pack Location R shoulder Patient Position Supine Patient Tolerance Good Comments Post-session per pt request. Reports relief after session. 10 minutes PT-OP-T Assessment and Plan Start: 08/23/23 16:14 Freq: Status: Active Protocol: Document 02/17/24 14:34 NM (Rec: 02/17/24 15:46 NM [id number]) Physical Therapy Assessment Goals Strength Impairment Pt with R shoulder strength impairments Short Term Goal (STG) Pt with 3+/5 R shoulder strength. 09/29/23: Pt with 3+/5 R shoulder strength 10/12/23: STG Duration 09/20/23-achieved Automotive Service Professional Goal (LTG) Pt with >4/5 R shoulder strength, unless otherwise recommended per new protocol. 11/29/23: R shoulder -4/5 for all motions 01/04/24: R shoulder 4-/5 for abd and ER, 4/5 for IR, flexion not tested per new protocol; PARTIALLY MET LTG Duration 03/30/24 Quick Dash Impairment Pt with 70% R shoulder impairment per Quick Dash Short Term Goal (STG) Pt with 40% R shoulder impairment per Quick Dash 09/29/23: 61% on Quick dash, improved 10/12/23: Pt with 50% score on Quick dash, improved. 11/29/23: 31 or 45% Quickdash STG Duration 09/20/23 PROGRESSING Long-Term Goal (LTG) Pt with <25% R shoulder impairment per Quick Dash 11/29/23: 45% quickdash- NOT MET LTG Duration 03/30/24 ROM Impairment Pt with 85 degrees of shoulder flexion/abduction AROM. Short Term Goal (STG) Pt with 110 degrees of shoulder flexion and abduction AROM. 09/29/23: Pt with 120 deg Flex and 118 deg abd. STG Duration 09/20/23 Automotive Service Professional Goal (LTG) Pt with >145 deg of shoulder flexion and abduction AROM, > 120 deg flex PROM unless otherwise recommended with protocol. 12/16/23: Before 165 deg flex, 145 abd; After mobilization- 168 deg fwd flex and 170 deg abd without compensation or pain with both; ER is 80 deg at 90 deg abd with stretch feeling at biceps but no pain, full IR at 90 deg abd 01/04/24: 65 deg IR, 50 deg ER, 145 deg ABD, passive flexion LTG Duration 12/13/22 MET, Updated for new protocol 03/30/24 Pain Impairment Pt with reported pain at 9/10 at worst. Short Term Goal (STG) Pt with reported pain at 6/10 at worst. STG Duration 09/20/23 MET Automotive Service Professional Goal (LTG) Pt with reported pain at 3/10 at worst. 11/29/22: 4/10 pain is best pain , worst pain is 6/10 01/04/24: Pain 5/10- NOT MET LTG Duration 03/30/24 Assessment Summary Assessment Pt continues to be limited with R shoulder strength, likely related to rotator cuff weakness and R biceps pain. Pt recently returned to surgeon, where he was cleared for stage IV strengthening of protocol. Right lat continues to be restricted and tender to palpation, along with teres muscles. Performed soft tissue mobilization to assist with reducing tissue tightness and to assist in R shoulder AROM. Trialed gentle rotator cuff strengthening, adding resistance to eccentric lowering for increased rotator cuff activation/stabilization . Pt has no increase in pain levels with eccentric resistance or with shoulder ER at 0 deg abduction. Pt has been seen since July 2023 s/p R subacromial decompression and biceps tenodesis. Pt is now almost 8 months post op. At this time, pt has full R shoulder AROM; however, continues to report popping with elevation/eccentric lowering in flex/abd, which has been reported to surgeon in previous progress notes. Pt 's R shoulder strength continues to be limited and painful in flexion/abduction. Pt recently cleared for stage IV strengthening via protocol. At this time, pt continues to present with minimum 3/10 pain levels in R shoulder, which is heightened with activity. Due to his work hours and PT/lymphedema treatments, pt is getting little sleep, which influences outlook and healing. PT educated pt today and previously about how amount of sleep affects healing. Pt is motivated to improve, but demonstrates signs of depression; he is discouraged by limited progression and pain. Pt would benefit from pain neuroscience education to assist with pain reduction in addition to continued activity modification to limit painful activity. Pt would benefit from skilled PT for R shoulder mobility and strengthening in order to improve activity tolerance and return to PLOF. Physical Therapy Plan Frequency and Duration Frequency of Treatment 1-2/wk Duration of treatment (weeks) 12 Plan of Care Start Date 01/04/24 Plan of Care End Date 03/30/24 Therapeutic Interventions Therapeutic Interventions Home Exercise Program,Joint Mobilizations,Manual Therapy, Neuromuscular Re-education, Patient/Caregiver Education, Self-Care/Home Management,Soft Tissue Mobilization, Therapeutic Activities, Therapeutic Exercises Modalities Cold Pack/Ice Massage,Electric Stimulation,Hot Packs, Ultrasound Next Visit Focus/Plan Next Note Type Treatment Note Next Visit Plan Per last surgeon note 02/08, progress to stage IV protocol* * Manual: prn for pain relief Continue periscapular strengthening/mobility: low row isometric, scapular retraction/protraction, inferior glide, isometric ER/ IR at 0 deg abd (progress abd as able w/o biceps)
--- NOTE | 2024-02-24 15:38 | PT.OTN ---
Current Diagnoses Pain in right shoulder (02/24/24) Bursitis of right shoulder (02/24/24) Strain of muscle(s) and tendon(s) of the rotator cuff of right shoulder, initial encounter (02/24/24) Strain of unspecified muscle, fascia and tendon at shoulder and upper arm level, right arm, initial encounter (02/24/24) Physical Therapy Treatment Note PT-OP-A Visit Information Start: 08/23/23 16:14 Freq: Status: Active Protocol: Document 02/24/24 14:34 NM (Rec: 02/24/24 15:32 NM [id number]) Out-Patient Physical Therapy Visit Information Visit Information Visit Type Treatment Note Visit Start Time 14:30 Visit Stop Time 15:25 Visit Number 03/09 PT-OP-B Current Condition Start: 08/23/23 16:14 Freq: Status: Active Protocol: Document 08/25/23 16:07 AM (Rec: 08/25/23 17:09 AM [id number]) Current Condition History of Current Condition Onset Date 07/06/23 Current Complaints R shoulder pain. History of Current Condition Pt had shoulder surgery on 07/06. Pt had a subacromial decompression/debridement with R shoulder arthroscopy, distal clavicle excision, biceps tenodesis. Pt was in a sling until the end of June. Pt reports previous R shoulder exploratory surgery in 2019. At that point he was having pain. 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 Had numbness. Pt reports partial rotator cuff tear at that point. Pt just under 7 weeks out of surgery. PT-OP-C Subjective Start: 08/23/23 16:14 Freq: Status: Active Protocol: Document 02/24/24 14:34 NM (Rec: 02/24/24 15:32 NM [id number]) OP-PT Subjective Patient Comments Patient Comments Pt reports 7/10 R shoulder pain after his kid pulled on his arm this morning. Usually 3/10 pain levels during most. He reports 2/10 after last session for 2-3 days. PT-OP-J Posture/Palpation/Skin Start: 08/23/23 16:14 Freq: Status: Active Protocol: Document 08/23/23 16:15 AM (Rec: 08/23/23 17:36 AM [id number]) Posture Evaluation Position Sitting Evaluation View Lateral Head/C-Spine Posture Forward Head Shoulder Posture (L) Forward,(R) Forward Scapula Posture (L) Protracted,(R) Protracted Skin Assessment Incisional Assessment Incision Appearance/Comments Incisions healed PT-OP-K Range of Motion Start: 08/23/23 16:14 Freq: Status: Active Protocol: Document 02/17/24 14:34 NM (Rec: 02/17/24 15:46 NM [id number]) Shoulder Goniometric Range of Motion Shoulder Right Passive Comments Re-evaluation 01/04: pain with passive flexion at 110 deg Left Active Shoulder ROM WFL Yes Testing Position Sitting Flexion 145 Abduction 150 Internal Rotation Behind Back (text) T10 Comments Aply ER: T5 02/17/24: 160 deg flex, 170 deg abd, T4 ER, T7 IR, 75 deg ER at 0 deg abd Right Abduction 145 External Rotation at 45 degrees 50 Abduction Internal Rotation 65 Comments 01/04/24: did not assess active flexion due to new precautions . Minimal pain reported with ER at pt end range. Last measured 12/16/23: pt had 80 deg ER and 80 deg IR at 90 deg abd, 168 deg fwd flex and 170 deg abd 11/29/23 PN: 140 deg flex, 140 deg abd, 50 deg ER at 45 deg abd 10/12/23 PN: flex 130 deg, abd 125 deg 02/17/24: 165 deg flex, 165 deg abd (pop with both), T12 IR, T4 ER apley, 65 deg ER (no pain) PT-OP-M Strength Start: 08/23/23 16:14 Freq: Status: Active Protocol: Document 02/17/24 14:34 NM (Rec: 02/17/24 15:46 NM [id number]) Shoulder Strength Shoulder Manual Muscle Testing Left Flexion 5 Normal Abduction (C5) 4+ Good+ External Rotation 5 Normal Internal Rotation 5 Normal Right Extension 4 Good Abduction (C5) 4- Good- External Rotation 4- Good- Internal Rotation 4 Good Comments 02/17/24: 4-/5 MMT flex,abd, ER with 4/10 pain; 4/5 IR painfree 01/04/24: Did not MMT shoulder flexion due to new protocols; no pain with other resisted motions 10/12/23 PN flex 3+/5 abd, ER 4-/5 IR 4/5 PT-OP-Q Treatments Start: 08/23/23 16:14 Freq: Status: Active Protocol: Document 02/24/24 14:34 NM (Rec: 02/24/24 15:32 NM [id number]) Therapeutic Exercises Standing Exercises push up plus Standing Exercise Name 1. scap protraction only straight arm, 2. IR mini push up, 3. ER minipushup Side bilateral Reps/Minutes 1. 1x15, 2-3. 1x5 Comments no increase in pain; tactile for scapular motion wall lift off Standing Exercise Name AROM flexion on wall,R resist on L for rotator cuff activation Side right Reps/Minutes 2x5 Comments painful range 110-135 deg w/ lift/lower; no change baseline pain bent over protraction/retraction Standing Exercise Name power superintendent row Side right Resistance lvl 1 tb Reps/Minutes 1x10 Comments no increase in pain; good scapular retraction lateral wall walk Standing Exercise Name wall about waist height Side bilateral Resistance lvl 1 tb around wrist Equipment Used waist height Reps/Minutes 2x5 ft ea direction Comments cued for scap setting, tension band; no increase in pain Resisted IR/ER Standing Exercise Name 1. ER at 0 deg abd, 2.IR walkout 0 deg abd, 3. ER walkout 0 deg abd Side right Resistance lvl 1 tb Reps/Minutes 1. 2x5, 2. 1x5, 3. 1x5 Comments no increase in pain; cued for arm // to body Manual Therapy Treatment Soft Tissue Mobilization periscapular muscles Body Location R rhomboids, lat, Rotator cuff , pec Mobilization Type Rolling,Strumming,Sustained Pressure,Trigger Point Release Intensity/Depth Moderate Body Position Sidelying Comments Increased R lat tenderness at axilla. Trigger point release of R lat. Less rotator cuff, pec tenderness. Reports 6/10 pain after soft tissue mobilization Joint Mobilizations scapulothoracic Joint R scapulothoracic Direction elevation/depression, upward/ downward rotation, protract/ retract, post set Grade III Body Position Sidelying Reps/Duration 1x10 ea Comments AAROM>AROM with PT facilitating at scapula, post soft tissue mobilization. Improved scapular mobility, but PT positioning pt into posterior scapular setting to prevent anterior shoulder translation Self-Care/Home Management Treatment Education Patient Education Home Exercise Program Other Education HEP: power superintendent row, wall serratus push up plus, ER/IR walkout PT-OP-R Modalities Start: 01/20/24 15:28 Freq: Status: Active Protocol: Document 02/24/24 14:34 NM (Rec: 02/24/24 15:33 NM [id number]) Hot Pack/Cold Pack Treatment Cold Pack Location R shoulder Patient Position Supine Patient Tolerance Good Comments Post-session per pt request. Skin assessed prior: no redness, abnormalities; pop within reach. Reports relief after session. 10 minutes PT-OP-T Assessment and Plan Start: 08/23/23 16:14 Freq: Status: Active Protocol: Document 02/24/24 14:34 NM (Rec: 02/24/24 15:32 NM [id number]) Physical Therapy Assessment Goals Strength Impairment Pt with R shoulder strength impairments Short Term Goal (STG) Pt with 3+/5 R shoulder strength. 09/29/23: Pt with 3+/5 R shoulder strength 10/12/23: STG Duration 09/20/23-achieved Fdc Goal (LTG) Pt with >4/5 R shoulder strength, unless otherwise recommended per new protocol. 11/29/23: R shoulder -4/5 for all motions 01/04/24: R shoulder 4-/5 for abd and ER, 4/5 for IR, flexion not tested per new protocol; PARTIALLY MET LTG Duration 03/30/24 Quick Dash Impairment Pt with 70% R shoulder impairment per Quick Dash Short Term Goal (STG) Pt with 40% R shoulder impairment per Quick Dash 09/29/23: 61% on Quick dash, improved 10/12/23: Pt with 50% score on Quick dash, improved. 11/29/23: 31 or 45% Quickdash STG Duration 09/20/23 PROGRESSING Fdc Goal (LTG) Pt with <25% R shoulder impairment per Quick Dash 11/29/23: 45% quickdash- NOT MET LTG Duration 03/30/24 ROM Impairment Pt with 85 degrees of shoulder flexion/abduction AROM. Short Term Goal (STG) Pt with 110 degrees of shoulder flexion and abduction AROM. 09/29/23: Pt with 120 deg Flex and 118 deg abd. STG Duration 09/20/23 Fdc Goal (LTG) Pt with >145 deg of shoulder flexion and abduction AROM, > 120 deg flex PROM unless otherwise recommended with protocol. 12/16/23: Before 165 deg flex, 145 abd; After mobilization- 168 deg fwd flex and 170 deg abd without compensation or pain with both; ER is 80 deg at 90 deg abd with stretch feeling at biceps but no pain, full IR at 90 deg abd 01/04/24: 65 deg IR, 50 deg ER, 145 deg ABD, passive flexion LTG Duration 12/13/22 MET, Updated for new protocol 03/30/24 Pain Impairment Pt with reported pain at 9/10 at worst. Short Term Goal (STG) Pt with reported pain at 6/10 at worst. STG Duration 09/20/23 MET Sleeping Bag Filler Goal (LTG) Pt with reported pain at 3/10 at worst. 11/29/22: 4/10 pain is best pain , worst pain is 6/10 01/04/24: Pain 5/10- NOT MET LTG Duration 03/30/24 Assessment Summary Assessment Pt reports decrease in pain levels after manual treatment and exercise. Manual treatment to decrease pain levels with soft tissue mobilization of rotator cuff and R lat; pt consistently has tenderness of R lat near axilla. PT educated pt on changing posture during work, breaks, and soft tissue mobilization at home at part of HEP to reduce tenderness. Pt verbalizes agreement. Re- initiated low resistance rotator cuff and periscapular strengthening per protocol; pt not ready to progress up to stage IV at this time due to pain levels and weakness. Requires increased time with activity and unable to tolerate increased reps/sets due to fatigue. Pt demos increased forward shoulder posture with activity; PT provided verbal and tactile cues to facilitate posterior scapular setting for improved scapulohumeral alignment. Pt did not have increase in pain levels during exercise; however, continues to be elevated today. Continued with scapular mobility to improve during overhead motion. Pt reports pain with arm elevation and eccentrically lowering arm from 110 deg to 135 deg range at anterior shoulder, previously reported to the surgeon. Pt would benefit from skilled PT to strengthen R shoulder within available range, decrease pain symptoms, and improve ability to perform ADLs. Physical Therapy Plan Frequency and Duration Frequency of Treatment 1-2/wk Duration of treatment (weeks) 12 Plan of Care Start Date 01/04/24 Plan of Care End Date 03/30/24 Therapeutic Interventions Therapeutic Interventions Home Exercise Program,Joint Mobilizations,Manual Therapy, Neuromuscular Re-education, Patient/Caregiver Education, Self-Care/Home Management,Soft Tissue Mobilization, Therapeutic Activities, Therapeutic Exercises Modalities Cold Pack/Ice Massage,Electric Stimulation,Hot Packs, Ultrasound Next Visit Focus/Plan Next Note Type Treatment Note Next Visit Plan Per last surgeon note 02/08, progress to stage IV protocol* * Determine pt tolerance to last session. Periscapular IYTW, resisted ext, wall slide and lift off, trial towel stretch Manual: prn for pain relief Continue periscapular strengthening/mobility: low row isometric, scapular retraction/protraction, inferior glide, isometric ER/ IR at 0 deg abd (progress abd as able w/o biceps)
--- NOTE | 2024-03-02 16:30 | PT.OTN ---
Current Diagnoses Pain in right shoulder (03/02/24) Bursitis of right shoulder (03/02/24) Strain of muscle(s) and tendon(s) of the rotator cuff of right shoulder, initial encounter (03/02/24) Strain of unspecified muscle, fascia and tendon at shoulder and upper arm level, right arm, initial encounter (03/02/24) Physical Therapy Treatment Note PT-OP-A Visit Information Start: 08/23/23 16:14 Freq: Status: Active Protocol: Document 03/02/24 14:39 NBM (Rec: 03/02/24 16:30 NBM [id number]) Out-Patient Physical Therapy Visit Information Visit Information Visit Type Treatment Note Visit Start Time 14:38 Visit Stop Time 15:25 Visit Number 04/08 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 History of Current Condition Pt had shoulder surgery on 07/06. Pt had a subacromial decompression/debridement with R shoulder arthroscopy, distal clavicle excision, biceps tenodesis. Pt was in a sling until the end of June. Pt reports previous R shoulder exploratory surgery in 2019. At that point he was having pain. Pt's initial injury was that he went to brain picker some boxes, felt it pop. Had numbness. Pt reports partial rotator cuff tear at that point. Pt just under 7 weeks out of surgery. PT-OP-C Subjective Start: 08/23/23 16:14 Freq: Status: Active Protocol: Document 03/02/24 14:39 NBM (Rec: 03/02/24 16:30 NBM [id number]) OP-PT Subjective Patient Comments Patient Comments Pt reports R shoulder pain . He hasn't been sleeping well. This last week I've definitely slacked on pretty much everything. PT-OP-J Posture/Palpation/Skin Start: 08/23/23 16:14 Freq: Status: Active Protocol: Document 08/23/23 16:15 AM (Rec: 08/23/23 17:36 AM [id number]) Posture Evaluation Position Sitting Evaluation View Lateral Head/C-Spine Posture Forward Head Shoulder Posture (L) Forward,(R) Forward Scapula Posture (L) Protracted,(R) Protracted Skin Assessment Incisional Assessment Incision Appearance/Comments Incisions healed PT-OP-K Range of Motion Start: 08/23/23 16:14 Freq: Status: Active Protocol: Document 02/17/24 14:34 NM (Rec: 02/17/24 15:46 NM [id number]) Shoulder Goniometric Range of Motion Shoulder Right Passive Comments Re-evaluation 01/04: pain with passive flexion at 110 deg Left Active Shoulder ROM WFL Yes Testing Position Sitting Flexion 145 Abduction 150 Internal Rotation Behind Back (text) T10 Comments Aply ER: T5 02/17/24: 160 deg flex, 170 deg abd, T4 ER, T7 IR, 75 deg ER at 0 deg abd Right Abduction 145 External Rotation at 45 degrees 50 Abduction Internal Rotation 65 Comments 01/04/24: did not assess active flexion due to new precautions . Minimal pain reported with ER at pt end range. Last measured 12/16/23: pt had 80 deg ER and 80 deg IR at 90 deg abd, 168 deg fwd flex and 170 deg abd 11/29/23 PN: 140 deg flex, 140 deg abd, 50 deg ER at 45 deg abd 10/12/23 PN: flex 130 deg, abd 125 deg 02/17/24: 165 deg flex, 165 deg abd (pop with both), T12 IR, T4 ER apley, 65 deg ER (no pain) PT-OP-M Strength Start: 08/23/23 16:14 Freq: Status: Active Protocol: Document 02/17/24 14:34 NM (Rec: 02/17/24 15:46 NM [id number]) Shoulder Strength Shoulder Manual Muscle Testing Left Flexion 5 Normal Abduction (C5) 4+ Good+ External Rotation 5 Normal Internal Rotation 5 Normal Right Extension 4 Good Abduction (C5) 4- Good- External Rotation 4- Good- Internal Rotation 4 Good Comments 02/17/24: 4-/5 MMT flex,abd, ER with 4/10 pain; 4/5 IR painfree 01/04/24: Did not MMT shoulder flexion due to new protocols; no pain with other resisted motions 10/12/23 PN flex 3+/5 abd, ER 4-/5 IR 4/5 PT-OP-Q Treatments Start: 08/23/23 16:14 Freq: Status: Active Protocol: Document 03/02/24 14:39 NBM (Rec: 03/02/24 16:30 NBM [id number]) Therapeutic Exercises Standing Exercises push up plus Standing Exercise Name 1.scap protraction only straight arm 2.IR mini push up <> 3.ER minipushup W Side bilateral Reps/Minutes 1. 1x15, 2-3. 1x5 Comments no increase in pain; tactile for scapular motion wall lift off Standing Exercise Name AROM flexion on wall,R resist on L for rotator cuff activation Side right Reps/Minutes 2x5 Comments painful range 110-135 deg w/ lift/lower; no change baseline pain lat stretch Side right Equipment Used hip into wall, L hand gently pulling R wrist overhead Reps/Minutes 1x30 Comments no pain bent over protraction/retraction Standing Exercise Name rate reviewer row Side right Resistance w and wo lvl 1 tb Reps/Minutes 1x10 ea Comments no increase in pain; good scapular retraction after tactile cues posterior capsule stretch Side right Equipment Used L assisting R arm Reps/Minutes 1x60 Comments no pain reported; reports good feedback with stretch lateral wall walk Standing Exercise Name wall about waist height Side bilateral Resistance lvl 1 tb around wrist Equipment Used waist height Reps/Minutes 2x5 ft ea direction Comments cued for scap setting, tension band; no increase in pain Resisted IR/ER Standing Exercise Name 1. ER at 0 deg abd, 2.IR walkout 0 deg abd, 3. ER walkout 0 deg abd Side right Resistance lvl 1 tb Reps/Minutes 1. x10, 2. 1x5, 3. 1x5 Comments no increase in pain; cued for arm // to body Self-Care/Home Management Treatment Education Patient Education Body Mechanics,Home Exercise Program,Pain Management, Posture Caregiver Education Educated pt on modalities for pn and pt self assessment of pain during HEP, educated patient on HEP progression/ regressions, reps/sets/ resistance, and appropriate mm fatigue for strength gains. Other Education Pt uses a fourth monitor for work placed above monitors due to space, causing him to perform cervical extension when looking at it; pt given 3 minute desk stretch HO. PT-OP-R Modalities Start: 01/20/24 15:28 Freq: Status: Active Protocol: Document 03/02/24 14:39 NBM (Rec: 03/02/24 16:30 [facility] [id number]) Hot Pack/Cold Pack Treatment Cold Pack Location R shoulder Patient Position Hooklying Patient Tolerance Good Comments Post-session per pt request. Skin assessed prior: no redness, abnormalities; pop within reach. Reports relief after session. 10 minutes PT-OP-T Assessment and Plan Start: 08/23/23 16:14 Freq: Status: Active Protocol: Document 03/02/24 14:39 [facility] (Rec: 03/02/24 16:30 [facility] [id number]) Physical Therapy Assessment Impairments Impairments Activity Tolerance,Posture,ROM ,Soft Tissue Mobility,Strength Goals Strength Impairment Pt with R shoulder strength impairments Short Term Goal (STG) Pt with 3+/5 R shoulder strength. 09/29/23: Pt with 3+/5 R shoulder strength 10/12/23: STG Duration 09/20/23-achieved Light Armored Reconnaissance Officer Goal (LTG) Pt with >4/5 R shoulder strength, unless otherwise recommended per new protocol. 11/29/23: R shoulder -4/5 for all motions 01/04/24: R shoulder 4-/5 for abd and ER, 4/5 for IR, flexion not tested per new protocol; PARTIALLY MET LTG Duration 03/30/24 Quick Dash Impairment Pt with 70% R shoulder impairment per Quick Dash Short Term Goal (STG) Pt with 40% R shoulder impairment per Quick Dash 09/29/23: 61% on Quick dash, improved 10/12/23: Pt with 50% score on Quick dash, improved. 11/29/23: 31 or 45% Quickdash STG Duration 09/20/23 PROGRESSING Light Armored Reconnaissance Officer Goal (LTG) Pt with <25% R shoulder impairment per Quick Dash 11/29/23: 45% quickdash- NOT MET LTG Duration 03/30/24 ROM Impairment Pt with 85 degrees of shoulder flexion/abduction AROM. Short Term Goal (STG) Pt with 110 degrees of shoulder flexion and abduction AROM. 09/29/23: Pt with 120 deg Flex and 118 deg abd. STG Duration 09/20/23 Penitentiary Goal (LTG) Pt with >145 deg of shoulder flexion and abduction AROM, > 120 deg flex PROM unless otherwise recommended with protocol. 12/16/23: Before 165 deg flex, 145 abd; After mobilization- 168 deg fwd flex and 170 deg abd without compensation or pain with both; ER is 80 deg at 90 deg abd with stretch feeling at biceps but no pain, full IR at 90 deg abd 01/04/24: 65 deg IR, 50 deg ER, 145 deg ABD, passive flexion LTG Duration 12/13/22 MET, Updated for new protocol 03/30/24 Pain Impairment Pt with reported pain at 9/10 at worst. Short Term Goal (STG) Pt with reported pain at 6/10 at worst. STG Duration 09/20/23 MET Light Armored Reconnaissance Officer Goal (LTG) Pt with reported pain at 3/10 at worst. 11/29/22: 4/10 pain is best pain , worst pain is 6/10 01/04/24: Pain 5/10- NOT MET LTG Duration 03/30/24 Assessment Summary Assessment Chao presents with 3/10 pain start of session, 4/10 pain end of session prior to application of cryotherapy for pain management. Treatment focus on improving scapular mechanics and strengthening. Pt requires occasional cues for UT overactivation and scapular setting; he requires tactile cues initially for improved scapular retraction due to UT overactivation w / rate reviewer row but self- awareness and performace improve with repetition. Pt tolerates R latissimus dorsi stretch at wall without pain today, which caused 4/10 pain at 02/17/24 visit. EOS pt mentions using fourth monitor for work placed above monitors due to space, causing him to perform cervical extension when looking at it; pt given 3 minute desk stretch series handout accordingly. Physical Therapy Plan Frequency and Duration Frequency of Treatment 1-2/wk Duration of treatment (weeks) 12 Plan of Care Start Date 01/04/24 Plan of Care End Date 03/30/24 Therapeutic Interventions Therapeutic Interventions Home Exercise Program,Joint Mobilizations,Manual Therapy, Neuromuscular Re-education, Patient/Caregiver Education, Self-Care/Home Management,Soft Tissue Mobilization, Therapeutic Activities, Therapeutic Exercises Modalities Cold Pack/Ice Massage,Electric Stimulation,Hot Packs, Ultrasound Next Visit Focus/Plan Next Note Type Treatment Note Next Visit Plan Per last surgeon note 02/08, progress to stage IV protocol* * Determine pt tolerance to last session. Periscapular IYTW, resisted ext, wall slide and lift off, trial towel stretch Manual: prn for pain relief Continue periscapular strengthening/mobility: low row isometric, scapular retraction/protraction, inferior glide, isometric ER/ IR at 0 deg abd (progress abd as able w/o biceps)
--- NOTE | 2024-03-16 15:00 | PT-OP ANOTE ---
S/w pt regarding missed 2:30pm appt and pt apologized and stated they thought appt was at 3:00pm and they were in their car about to drive over. Pt attempts to reschedule today's missed physical therapy appt but due to scheduling conflict w/ lymphedema appts pt is unable to reschedule today's missed appt. Confirmed next week's lymphedema appts 03/20 and 03/21, and PT appt 03/23 at 2:30pm.
--- NOTE | 2024-03-23 15:45 | PT.OTN ---
Current Diagnoses Pain in right shoulder (03/23/24) Bursitis of right shoulder (03/23/24) Strain of muscle(s) and tendon(s) of the rotator cuff of right shoulder, initial encounter (03/23/24) Strain of unspecified muscle, fascia and tendon at shoulder and upper arm level, right arm, initial encounter (03/23/24) Physical Therapy Treatment Note PT-OP-A Visit Information Start: 08/23/23 16:14 Freq: Status: Active Protocol: Document 03/23/24 14:41 NM (Rec: 03/23/24 15:54 NM [id number]) Out-Patient Physical Therapy Visit Information Visit Information Visit Type Progress Note Visit Note pt late to sesion Visit Start Time 14:41 Visit Stop Time 15:25 Visit Number 05/09 PT-OP-B Current Condition Start: 08/23/23 16:14 Freq: Status: Active Protocol: Document 08/25/23 16:07 AM (Rec: 08/25/23 17:09 AM [id number]) Current Condition History of Current Condition Onset Date 07/06/23 Current Complaints R shoulder pain. History of Current Condition Pt had shoulder surgery on 07/06. Pt had a subacromial decompression/debridement with R shoulder arthroscopy, distal clavicle excision, biceps tenodesis. Pt was in a sling until the end of June. Pt reports previous R shoulder exploratory surgery in 2019. At that point he was having pain. Pt's initial injury was that he went to cook pickled meat some boxes, felt it pop. Had numbness. Pt reports partial rotator cuff tear at that point. Pt just under 7 weeks out of surgery. PT-OP-C Subjective Start: 08/23/23 16:14 Freq: Status: Active Protocol: Document 03/23/24 14:41 NM (Rec: 03/23/24 15:54 NM [id number]) OP-PT Subjective Patient Comments Patient Comments Pt wanting to contact Dr. Charles with [facility]. Pt reports 4/10 in R shoulder pain, average 4/10 at rest. Can go up to 7/10 with ADLs. Pt reports that he has not made progress since last PN, wanting to continue with strengthening and pain. States making small improvements with strengthening. Pt continues to have R proximal biceps pain, improved with stiffness and less popping. PT-OP-J Posture/Palpation/Skin Start: 08/23/23 16:14 Freq: Status: Active Protocol: Document 08/23/23 16:15 AM (Rec: 08/23/23 17:36 AM [id number]) Posture Evaluation Position Sitting Evaluation View Lateral Head/C-Spine Posture Forward Head Shoulder Posture (L) Forward,(R) Forward Scapula Posture (L) Protracted,(R) Protracted Skin Assessment Incisional Assessment Incision Appearance/Comments Incisions healed PT-OP-K Range of Motion Start: 08/23/23 16:14 Freq: Status: Active Protocol: Document 03/23/24 14:41 NM (Rec: 03/23/24 15:54 NM [id number]) Shoulder Goniometric Range of Motion Shoulder Right Flexion 160 Abduction 160 External Rotation at 90 degrees 70 Abduction Comments 01/04/24: did not assess active flexion due to new precautions . Minimal pain reported with ER at pt end range. Last measured 12/16/23: pt had 80 deg ER and 80 deg IR at 90 deg abd, 168 deg fwd flex and 170 deg abd 11/29/23 PN: 140 deg flex, 140 deg abd, 50 deg ER at 45 deg abd 10/12/23 PN: flex 130 deg, abd 125 deg 02/17/24: 165 deg flex, 165 deg abd (pop with both), T12 IR, T4 ER apley, 65 deg ER (no pain) 03/23/24: 160 both flex and abd (no pop, states pain free), 70 deg ER (mild anterior shoulder pain) PT-OP-M Strength Start: 08/23/23 16:14 Freq: Status: Active Protocol: Document 03/23/24 14:41 NM (Rec: 03/23/24 15:54 NM [id number]) Shoulder Strength Shoulder Manual Muscle Testing Right Extension 4 Good Abduction (C5) 4 Good External Rotation 4 Good Internal Rotation 4 Good Comments 03/23/24: 4/5 flex/ER/IR/abd 02/17/24: 4-/5 MMT flex,abd, ER with 4/10 pain; 4/5 IR painfree 01/04/24: Did not MMT shoulder flexion due to new protocols; no pain with other resisted motions 10/12/23 PN flex 3+/5 abd, ER 4-/5 IR 4/5 PT-OP-Q Treatments Start: 08/23/23 16:14 Freq: Status: Active Protocol: Document 03/23/24 14:41 NM (Rec: 03/23/24 15:54 NM [id number]) Gym Equipment Cable Column (Body Solid) Rows Details good scapular retractions Resistance 30#>40# Reps/Time 2x10 Lat Pull Down Details mid vamp strap ironer; states fatiguing, no pain but Feels bicep Resistance 40# (lvl 4)> 60# Reps/Time 1x10>2x10 Therapeutic Exercises Standing Exercises wall clocks Standing Exercise Name 12, 3, 6, 9 o'clock Side bilateral Resistance lvl 1 band Reps/Minutes 1x10 ea Comments mild increase in baseline pain , improved with rest D2 Standing Exercise Name D2 flexion pattern with thoracic rotation Side right Resistance 2.2# tball Reps/Minutes 2x8 Comments reports mild discomfort ( states no pain) w/ eccentric control Wall slide Standing Exercise Name with resistance Side bilateral Resistance lvl 1 band Reps/Minutes 1x10 ea Comments no increase in baseline pain, full ROM, no click/pop PT-OP-R Modalities Start: 01/20/24 15:28 Freq: Status: Active Protocol: Document 03/23/24 14:41 NM (Rec: 03/23/24 15:54 NM [id number]) Hot Pack/Cold Pack Treatment Cold Pack Location R shoulder Patient Position Hooklying Patient Tolerance Good Comments Post-session per pt request. Skin assessed prior: no redness, abnormalities; pop within reach. Reports relief after session. 10 minutes PT-OP-T Assessment and Plan Start: 08/23/23 16:14 Freq: Status: Active Protocol: Document 03/23/24 14:41 NM (Rec: 03/23/24 15:54 NM [id number]) Physical Therapy Assessment Goals Strength Impairment Pt with R shoulder strength impairments Short Term Goal (STG) Pt with 3+/5 R shoulder strength. 09/29/23: Pt with 3+/5 R shoulder strength 10/12/23: STG Duration 09/20/23-achieved Site Lead Goal (LTG) Pt with >4/5 R shoulder strength, unless otherwise recommended per new protocol. 03/23/24: 4/5 MMT for flex/abd/ ER/IR 11/29/23: R shoulder -4/5 for all motions 01/04/24: R shoulder 4-/5 for abd and ER, 4/5 for IR, flexion not tested per new protocol; PARTIALLY MET LTG Duration 06/15/24- 4/5 MMT ACHIEVED Quick Dash Impairment Pt with 70% R shoulder impairment per Quick Dash Short Term Goal (STG) Pt with 40% R shoulder impairment per Quick Dash 09/29/23: 61% on Quick dash, improved 10/12/23: Pt with 50% score on Quick dash, improved. 11/29/23: 31 or 45% Quickdash STG Duration 09/20/23 PROGRESSING Snf Goal (LTG) Pt with <25% R shoulder impairment per Quick Dash to demonstrate improved QOL and pain management 03/23/24: 33 or 50% impairment- - NOT MET 11/29/23: 45% quickdash- NOT MET LTG Duration 06/15/24 NOT MET ROM Impairment Pt with 85 degrees of shoulder flexion/abduction AROM. Short Term Goal (STG) Pt with 110 degrees of shoulder flexion and abduction AROM. 09/29/23: Pt with 120 deg Flex and 118 deg abd. STG Duration 09/20/23 Site Lead Goal (LTG) Pt with >145 deg of shoulder flexion and abduction AROM, > 120 deg flex PROM unless otherwise recommended with protocol. 03/23/24: 160 deg abd and flexion 12/16/23: Before 165 deg flex, 145 abd; After mobilization- 168 deg fwd flex and 170 deg abd without compensation or pain with both; ER is 80 deg at 90 deg abd with stretch feeling at biceps but no pain, full IR at 90 deg abd 01/04/24: 65 deg IR, 50 deg ER, 145 deg ABD, passive flexion LTG Duration 12/13/22 MET Pain Impairment Pt with reported pain at 9/10 at worst. Short Term Goal (STG) Pt with reported pain at 6/10 at worst. STG Duration 09/20/23 MET Snf Goal (LTG) Pt will report no increase in baseline pain with ADLs. 03/23/24: pt reports that 7/10 is worse pain with ADLs, 4/10 pain at rest normally 11/29/22: 4/10 pain is best pain , worst pain is 6/10 01/04/24: Pain 5/10- NOT MET LTG Duration 06/15/24 GOAL UPDATED Assessment Summary Assessment Pt late to session, so decreased time. Progressing pt strength training per pt tolerance and per protocol. Pt fatigues easily with activity , but able to tolerate increased resistance without change in baseline pain levels . Progressed from wall walks to wall clocks for increased scapular stability and rotator cuff strength. Added D2 PNF pattern with small theraball over therband for additional rotator cuff strengthening without constant resistance throughout range. Trialed and progressed resistance with lat pull downs and rows. Cued to maintain good upright posture; demos full ROM with improved scapular control with occasional cueing. During exercises, pt consistently has discomfort in R anterior shoulder near proximal biceps tendon, but denies increase in pain levels. However, pt frustrated with pain management and current pain levels this far removed from surgical repair. Physical Therapy Plan Frequency and Duration Frequency of Treatment 1-2/wk Duration of treatment (weeks) 12 Plan of Care Start Date 03/23/24 Plan of Care End Date 06/15/24 Therapeutic Interventions Therapeutic Interventions Home Exercise Program,Joint Mobilizations,Manual Therapy, Neuromuscular Re-education, Patient/Caregiver Education, Self-Care/Home Management,Soft Tissue Mobilization, Therapeutic Activities, Therapeutic Exercises Modalities Cold Pack/Ice Massage,Electric Stimulation,Hot Packs, Ultrasound Other Referrals/Consults Referrals/Consults Recommended Recommend imaging and further assessment of R shoulder due to painful popping and proximal R biceps pain persisting Next Visit Focus/Plan Next Note Type Treatment Note Next Visit Plan Per last surgeon note 02/08, progress to stage IV protocol* * Next session: upright row, lat pull down, PNF, supported ER, then ER AROM, ER press, CS stretch. Wall clock, serratus press with ball Manual: prn for pain relief
--- NOTE | 2024-03-23 15:46 | PT.OPPOC ---
Physical, Occupational & Speech Therapy At [facility] Current Diagnoses Pain in right shoulder (03/23/24) Bursitis of right shoulder (03/23/24) Strain of muscle(s) and tendon(s) of the rotator cuff of right shoulder, initial encounter (03/23/24) Strain of unspecified muscle, fascia and tendon at shoulder and upper arm level, right arm, initial encounter (03/23/24) Visit Care Team Role Provider Type MERLYN Nunes Family Provider Non-Staff Primary Care Provider Specialty: Family Practice Address: [address] [place] [address], [id number] Email: Kvng Abernathy PA-C Attending Provider Non-Staff Referring Provider Specialty: Medical Address: [address] [place] [address], [address] Phone: Email: Plan Of Care PT-OP-T Assessment and Plan Start: 08/23/23 16:14 Freq: Status: Active Protocol: Document 03/23/24 14:41 NM (Rec: 03/23/24 15:54 NM [id number]) Physical Therapy Assessment Goals Strength Impairment Pt with R shoulder strength impairments Short Term Goal (STG) Pt with 3+/5 R shoulder strength. 09/29/23: Pt with 3+/5 R shoulder strength 10/12/23: STG Duration 09/20/23-achieved Detention Goal (LTG) Pt with >4/5 R shoulder strength, unless otherwise recommended per new protocol. 03/23/24: 4/5 MMT for flex/abd/ ER/IR 11/29/23: R shoulder -4/5 for all motions 01/04/24: R shoulder 4-/5 for abd and ER, 4/5 for IR, flexion not tested per new protocol; PARTIALLY MET LTG Duration 06/15/24- 4/5 MMT ACHIEVED Quick Dash Impairment Pt with 70% R shoulder impairment per Quick Dash Short Term Goal (STG) Pt with 40% R shoulder impairment per Quick Dash 09/29/23: 61% on Quick dash, improved 10/12/23: Pt with 50% score on Quick dash, improved. 11/29/23: 31 or 45% Quickdash STG Duration 09/20/23 PROGRESSING Detention Goal (LTG) Pt with <25% R shoulder impairment per Quick Dash to demonstrate improved QOL and pain management 03/23/24: 33 or 50% impairment- - NOT MET 11/29/23: 45% quickdash- NOT MET LTG Duration 06/15/24 NOT MET ROM Impairment Pt with 85 degrees of shoulder flexion/abduction AROM. Short Term Goal (STG) Pt with 110 degrees of shoulder flexion and abduction AROM. 09/29/23: Pt with 120 deg Flex and 118 deg abd. STG Duration 09/20/23 Detention Goal (LTG) Pt with >145 deg of shoulder flexion and abduction AROM, > 120 deg flex PROM unless otherwise recommended with protocol. 03/23/24: 160 deg abd and flexion 12/16/23: Before 165 deg flex, 145 abd; After mobilization- 168 deg fwd flex and 170 deg abd without compensation or pain with both; ER is 80 deg at 90 deg abd with stretch feeling at biceps but no pain, full IR at 90 deg abd 01/04/24: 65 deg IR, 50 deg ER, 145 deg ABD, passive flexion LTG Duration 12/13/22 MET Pain Impairment Pt with reported pain at 9/10 at worst. Short Term Goal (STG) Pt with reported pain at 6/10 at worst. STG Duration 09/20/23 MET Core Drill Operator Goal (LTG) Pt will report no increase in baseline pain with ADLs. 03/23/24: pt reports that 7/10 is worse pain with ADLs, 4/10 pain at rest normally 11/29/22: 4/10 pain is best pain , worst pain is 6/10 01/04/24: Pain 5/10- NOT MET LTG Duration 06/15/24 GOAL UPDATED Assessment Summary Assessment Pt has been seen since July 2023 s/p subacromial decompression repair and bicep tenodesis. He is currently 9 months post op. Pt has full R shoulder AROM. His strength is improving, now currently 4/5 for abd/ER/IR but remains 4-/5 for flexion. Resisted flexion is painful and weak. Pt also consistently has pain levels about 4/10; he consistently states that he does not believe that his pain is being well managed, which is frustrating to him. He also continues be dependent on cryotherapy for pain management after activity. PT has provided education regarding pain neuroscience, activity modification, positioning, stretching, and HEP without much change in pt' s pain levels; however, pt has not been able to make many modifications or progression with pain management. Pt has had a very slow rehabilitation process due to several co- morbidities, job changes, concurrent lymphedema treatment, several leg infections, lack of sleep, smoking, and regression in protocol for 10 weeks earlier in 2023. Pt recently progressed to stage 4 of protocol with resistance training, in addition to returning to increased resistance training and weight lifting. He continues to have popping of R shoulder with eccentric motion return from arm elevation, but reports decreased frequency. Popping is painful. He is most limited by pain, weakness, and decreased tolerance for activity. Pt also has scheduling limitations, which limit progress with PT. Pt will be returning to surgeon in March for follow up with PT recommending to pt for further assessment as pain symptoms persist. However, pt slowly progressing toward goals and strengthening, but making minimal progress overall. Unless otherwise recommended, he would benefit from skilled PT for R shoulder strengthening to improve activity tolerance. Physical Therapy Plan Frequency and Duration Frequency of Treatment 1-2/wk Duration of treatment (weeks) 12 Plan of Care Start Date 03/23/24 Plan of Care End Date 06/15/24 Therapeutic Interventions Therapeutic Interventions Home Exercise Program,Joint Mobilizations,Manual Therapy, Neuromuscular Re-education, Patient/Caregiver Education, Self-Care/Home Management,Soft Tissue Mobilization, Therapeutic Activities, Therapeutic Exercises Modalities Cold Pack/Ice Massage,Electric Stimulation,Hot Packs, Ultrasound Other Referrals/Consults Referrals/Consults Recommended Recommend imaging and further assessment of R shoulder due to painful popping and proximal R biceps pain persisting Next Visit Focus/Plan Next Note Type Treatment Note Next Visit Plan Per last surgeon note 02/08, progress to stage IV protocol* * Next session: upright row, lat pull down, PNF, supported ER, then ER AROM, ER press, CS stretch. Wall clock, serratus press with ball Manual: prn for pain relief Plan of Care Dates Plan of Care Start Date 03/23/24 Plan of Care End Date 06/15/24 Electronically Signed by: Vandana Bob, PT 03/27/24 [id number] If you are in agreement with this Plan of Care, please return a signed and dated copy. I have reviewed this Plan of Care and certify that the skilled therapy services above are required to meet the patient?s needs. Physician Signature Date Printed Name and Credentials Clinical Instructor Signature Printed Name and Credentials
--- NOTE | 2024-04-13 14:03 | PT-OP ANOTE ---
04/13/24 2:00pm: S/w pt re: 1:45pm PT appointment; and he explains he had to wait for childcare and is leaving now. Short session offered.
--- NOTE | 2024-04-20 15:43 | PT.OTN ---
Current Diagnoses Pain in right shoulder (04/20/24) Bursitis of right shoulder (04/20/24) Strain of muscle(s) and tendon(s) of the rotator cuff of right shoulder, initial encounter (04/20/24) Strain of unspecified muscle, fascia and tendon at shoulder and upper arm level, right arm, initial encounter (04/20/24) Physical Therapy Treatment Note PT-OP-A Visit Information Start: 08/23/23 16:14 Freq: Status: Active Protocol: Document 04/20/24 13:49 NM (Rec: 04/20/24 14:34 NM [id number]) Out-Patient Physical Therapy Visit Information Visit Information Visit Type Treatment Note Visit Start Time 13:49 Visit Stop Time 14:39 Visit Number 06/08 PT-OP-B Current Condition Start: 08/23/23 16:14 Freq: Status: Active Protocol: Document 08/25/23 16:07 AM (Rec: 08/25/23 17:09 AM [id number]) Current Condition History of Current Condition Onset Date 07/06/23 Current Complaints R shoulder pain. History of Current Condition Pt had shoulder surgery on 07/06. Pt had a subacromial decompression/debridement with R shoulder arthroscopy, distal clavicle excision, biceps tenodesis. Pt was in a sling until the end of June. Pt reports previous R shoulder exploratory surgery in 2019. At that point he was having pain. Pt's initial injury was that he went to peanut picker some boxes, felt it pop. Had numbness. Pt reports partial rotator cuff tear at that point. Pt just under 7 weeks out of surgery. PT-OP-C Subjective Start: 08/23/23 16:14 Freq: Status: Active Protocol: Document 04/20/24 13:49 NM (Rec: 04/20/24 14:34 NM [id number]) OP-PT Subjective Patient Comments Patient Comments Pt reports 3/10 R shoulder pain. Saw surgeon on tuesday , strength still needs work but states did not care about his pain. Surgeon planning on seeing again in 3 months; they are planning determining whether pt will be d/c or IRIS. After last session, pt reports that he was sore. Soreness resolves within 12 hours. Ice still helps. He reports fatigue quickly and biceps discomfort with wall clock after 5 reps. PT-OP-J Posture/Palpation/Skin Start: 08/23/23 16:14 Freq: Status: Active Protocol: Document 08/23/23 16:15 AM (Rec: 08/23/23 17:36 AM [id number]) Posture Evaluation Position Sitting Evaluation View Lateral Head/C-Spine Posture Forward Head Shoulder Posture (L) Forward,(R) Forward Scapula Posture (L) Protracted,(R) Protracted Skin Assessment Incisional Assessment Incision Appearance/Comments Incisions healed PT-OP-K Range of Motion Start: 08/23/23 16:14 Freq: Status: Active Protocol: Document 04/20/24 13:49 NM (Rec: 04/20/24 14:34 NM [id number]) Shoulder Goniometric Range of Motion Shoulder Right Flexion 160 Abduction 160 External Rotation at 90 degrees 70 Abduction Comments 10/12/23 PN: flex 130 deg, abd 125 deg 11/29/23 PN: 140 deg flex, 140 deg abd, 50 deg ER at 45 deg abd 01/04/24: did not assess active flexion due to new precautions . Minimal pain reported with ER at pt end range. Last measured 12/16/23: pt had 80 deg ER and 80 deg IR at 90 deg abd, 168 deg fwd flex and 170 deg abd 02/17/24: 165 deg flex, 165 deg abd (pop with both), T12 IR, T4 ER apley, 65 deg ER (no pain) 03/23/24: 160 both flex and abd (no pop, states pain free), 70 deg ER (mild anterior shoulder pain) 04/20/24: 160 flex, 175 abd, 60 deg ER 0 deg abd, 70 deg at 90 deg abd (feels pull at cuff insertion) PT-OP-M Strength Start: 08/23/23 16:14 Freq: Status: Active Protocol: Document 04/20/24 13:49 NM (Rec: 04/20/24 14:34 NM [id number]) Shoulder Strength Shoulder Manual Muscle Testing Right Extension 4 Good Abduction (C5) 4 Good External Rotation 4 Good Internal Rotation 4 Good Comments 04/20/24: 4/5 flex/ER/abd/IR 03/23/24: 4/5 flex/ER/IR/abd 02/17/24: 4-/5 MMT flex,abd, ER with 4/10 pain; 4/5 IR painfree 01/04/24: Did not MMT shoulder flexion due to new protocols; no pain with other resisted motions 10/12/23 PN flex 3+/5 abd, ER 4-/5 IR 4/5 PT-OP-Q Treatments Start: 08/23/23 16:14 Freq: Status: Active Protocol: Document 04/20/24 13:49 NM (Rec: 04/20/24 14:34 NM [id number]) Gym Equipment Cable Column (Body Solid) Rows Details 1 arm row: Low>high (7th rung) Resistance 30# Reps/Time 2x10 Therapeutic Exercises Sidelying Exercises Flexion Side right Resistance AROM Reps/Minutes 1x10 Comments good feedback with AROM, not tolerant resistance Abduction Sidelying Exercise Name HABD Side right Resistance AROM Reps/Minutes 1x10 Comments reports dull ache ER Side right Resistance AROM > 1# db > 2# Equipment Used towel roll btwn arm Reps/Minutes 1x10 > 1x5> 1x10 Comments reports no pain; cued to prevent trunk rot Standing Exercises serratus activation Standing Exercise Name serratus foam roll Side bilateral Reps/Minutes 1x10 wall clocks Standing Exercise Name 12, 3, 6, 9 o'clock Side right Resistance lvl 1 band Reps/Minutes 1x5 Comments reports bicep pain if more than 10 reps; edu on 5 at a time Manual Therapy Treatment Soft Tissue Mobilization periscapular muscles Body Location R rhomboids, lat, Rotator cuff , pec Mobilization Type Rolling,Strumming,Sustained Pressure,Trigger Point Release Intensity/Depth Moderate Body Position Sidelying Comments Less tenderness at axilla, minimal lat tenderness. No rotator cuff tenderness. PT-OP-R Modalities Start: 01/20/24 15:28 Freq: Status: Active Protocol: Document 04/20/24 13:49 NM (Rec: 04/20/24 14:34 NM [id number]) Hot Pack/Cold Pack Treatment Cold Pack Location R shoulder Patient Position Hooklying Patient Tolerance Good Comments Post-session per pt request. Skin assessed prior: no redness, abnormalities; pop within reach. Reports relief after session. 10 minutes PT-OP-T Assessment and Plan Start: 08/23/23 16:14 Freq: Status: Active Protocol: Document 04/20/24 13:49 NM (Rec: 04/20/24 14:34 NM [id number]) Physical Therapy Assessment Goals Strength Impairment Pt with R shoulder strength impairments Short Term Goal (STG) Pt with 3+/5 R shoulder strength. 09/29/23: Pt with 3+/5 R shoulder strength 10/12/23: STG Duration 09/20/23-achieved Residential Goal (LTG) Pt with >4/5 R shoulder strength, unless otherwise recommended per new protocol. 03/23/24: 4/5 MMT for flex/abd/ ER/IR 11/29/23: R shoulder -4/5 for all motions 01/04/24: R shoulder 4-/5 for abd and ER, 4/5 for IR, flexion not tested per new protocol; PARTIALLY MET LTG Duration 06/15/24- 4/5 MMT ACHIEVED Quick Dash Impairment Pt with 70% R shoulder impairment per Quick Dash Short Term Goal (STG) Pt with 40% R shoulder impairment per Quick Dash 09/29/23: 61% on Quick dash, improved 10/12/23: Pt with 50% score on Quick dash, improved. 11/29/23: 31 or 45% Quickdash STG Duration 09/20/23 PROGRESSING Investigator [employer] Revenue Goal (LTG) Pt with <25% R shoulder impairment per Quick Dash to demonstrate improved QOL and pain management 04/20/24: 29 or 40% impairment- - NOT MET 03/23/24: 33 or 50% impairment- - NOT MET 11/29/23: 45% quickdash- NOT MET LTG Duration 06/15/24 NOT MET ROM Impairment Pt with 85 degrees of shoulder flexion/abduction AROM. Short Term Goal (STG) Pt with 110 degrees of shoulder flexion and abduction AROM. 09/29/23: Pt with 120 deg Flex and 118 deg abd. STG Duration 09/20/23 Investigator Internal Revenue Goal (LTG) Pt with >145 deg of shoulder flexion and abduction AROM, > 120 deg flex PROM unless otherwise recommended with protocol. 03/23/24: 160 deg abd and flexion 12/16/23: Before 165 deg flex, 145 abd; After mobilization- 168 deg fwd flex and 170 deg abd without compensation or pain with both; ER is 80 deg at 90 deg abd with stretch feeling at biceps but no pain, full IR at 90 deg abd 01/04/24: 65 deg IR, 50 deg ER, 145 deg ABD, passive flexion LTG Duration 12/13/22 MET Pain Impairment Pt with reported pain at 9/10 at worst. Short Term Goal (STG) Pt with reported pain at 6/10 at worst. STG Duration 09/20/23 MET Investigator [employer] Revenue Goal (LTG) Pt will report no increase in baseline pain with ADLs. 03/23/24: pt reports that 7/10 is worse pain with ADLs, 4/10 pain at rest normally 11/29/22: 4/10 pain is best pain , worst pain is 6/10 01/04/24: Pain 5/10- NOT MET LTG Duration 06/15/24 GOAL UPDATED Assessment Summary Assessment Pt responded well to manual therapy and strengthening exercises today. Reports 4/10 R shoulder pain at end of session, slight increase from 3/10. Re-initiated sidelying flex/HABD/ER for improved activation of rotator cuff musculature. Pt able to tolerate 2# in sidelying ER. Did not attempt resistance for sidelying flexion or HABD as pt able to perform full ROM but with increased fatigue at end of sets. Discontinued wall clocks due to pt reported pain. He has less tenderness to palpation at R latissimus. However, pt reports that he had strong jolt at cuff insertion on R arm today at start of session when measuring ER at 90 deg abduction; resolved within several minutes and did not re -occur during session. Progressed to single arm row with improved scapular retraction and activation with cables. Pt slowly progressing with strengthening, but very deconditioned and fatigues easily. 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 He has had little progress recently with his lymphedema, so legs are also swollen and painful. He has had limited sleep for several weeks, poor diet, and long working hours, which limit his progression with healing and ability to progress with PT. Pt recently had follow up with surgeon and planning on having follow up in several months. He is very frustrated at the amount of pain that he is still having this far out from surgery. Pt would benefit from skilled PT for R shoulder strengthening and pain management; however, pt would also benefit from further intervention regarding pain management strategies. Physical Therapy Plan Frequency and Duration Frequency of Treatment 1-2/wk Duration of treatment (weeks) 12 Plan of Care Start Date 03/23/24 Plan of Care End Date 06/15/24 Therapeutic Interventions Therapeutic Interventions Home Exercise Program,Joint Mobilizations,Manual Therapy, Neuromuscular Re-education, Patient/Caregiver Education, Self-Care/Home Management,Soft Tissue Mobilization, Therapeutic Activities, Therapeutic Exercises Modalities Cold Pack/Ice Massage,Electric Stimulation,Hot Packs, Ultrasound Other Referrals/Consults Referrals/Consults Recommended Recommend imaging and further assessment of R shoulder due to painful popping and proximal R biceps pain persisting Next Visit Focus/Plan Next Note Type Treatment Note Next Visit Plan Per last surgeon note 02/08, progress to stage IV protocol* * Pain NS education. Next session: s/l trio, dynamic hug, counter plank shoulder tap, upright row, lat pull down, PNF, supported ER, then ER AROM, ER press, CS stretch. Manual: prn for pain relief
--- NOTE | 2024-05-18 15:20 | PT.OTN ---
Current Diagnoses Pain in right shoulder (05/18/24) Bursitis of right shoulder (05/18/24) Strain of muscle(s) and tendon(s) of the rotator cuff of right shoulder, initial encounter (05/18/24) Strain of unspecified muscle, fascia and tendon at shoulder and upper arm level, right arm, initial encounter (05/18/24) Physical Therapy Treatment Note PT-OP-A Visit Information Start: 08/23/23 16:14 Freq: Status: Active Protocol: Document 05/18/24 13:55 NM (Rec: 05/18/24 15:19 NM [id number]) Out-Patient Physical Therapy Visit Information Visit Information Visit Type Progress Note Visit Note pt late, PT able to accommodate Visit Start Time 13:56 Visit Stop Time 14:46 Visit Number 08/09 PT-OP-B Current Condition Start: 08/23/23 16:14 Freq: Status: Active Protocol: Document 08/25/23 16:07 AM (Rec: 08/25/23 17:09 AM [id number]) Current Condition History of Current Condition Onset Date 07/06/23 Current Complaints R shoulder pain. History of Current Condition Pt had shoulder surgery on 07/06. Pt had a subacromial decompression/debridement with R shoulder arthroscopy, distal clavicle excision, biceps tenodesis. Pt was in a sling until the end of June. Pt reports previous R shoulder exploratory surgery in 2019. At that point he was having pain. 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 Had numbness. Pt reports partial rotator cuff tear at that point. Pt just under 7 weeks out of surgery. PT-OP-C Subjective Start: 08/23/23 16:14 Freq: Status: Active Protocol: Document 05/18/24 13:55 NM (Rec: 05/18/24 15:19 NM [id number]) OP-PT Subjective Patient Comments Patient Comments Hasn't slept for 2 days. Starting at 3.5/10 baseline R shoulder pain. Reports compliance with HEP every other day. States hasn't been stretching due to busy work schedule so feels stiffer. Pt states no change in baseline pain levels with HEP since wall clock removed. Still has discomfort over biceps reattachment area but states less than previous, also near rotator cuff attachment on shoulder PT-OP-J Posture/Palpation/Skin Start: 08/23/23 16:14 Freq: Status: Active Protocol: Document 08/23/23 16:15 AM (Rec: 08/23/23 17:36 AM [id number]) Posture Evaluation Position Sitting Evaluation View Lateral Head/C-Spine Posture Forward Head Shoulder Posture (L) Forward,(R) Forward Scapula Posture (L) Protracted,(R) Protracted Skin Assessment Incisional Assessment Incision Appearance/Comments Incisions healed PT-OP-K Range of Motion Start: 08/23/23 16:14 Freq: Status: Active Protocol: Document 05/18/24 13:55 NM (Rec: 05/18/24 15:19 NM [id number]) Shoulder Goniometric Range of Motion Shoulder Right Flexion 160 Abduction 160 External Rotation at 90 degrees 70 Abduction Comments 10/12/23 PN: flex 130 deg, abd 125 deg 11/29/23 PN: 140 deg flex, 140 deg abd, 50 deg ER at 45 deg abd 01/04/24: did not assess active flexion due to new precautions . Minimal pain reported with ER at pt end range. Last measured 12/16/23: pt had 80 deg ER and 80 deg IR at 90 deg abd, 168 deg fwd flex and 170 deg abd 02/17/24: 165 deg flex, 165 deg abd (pop with both), T12 IR, T4 ER apley, 65 deg ER (no pain) 03/23/24: 160 both flex and abd (no pop, states pain free), 70 deg ER (mild anterior shoulder pain) 04/20/24: 160 flex, 175 abd, 60 deg ER 0 deg abd, 70 deg at 90 deg abd (feels pull at cuff insertion) 05/18/24: 165 deg flex, 170 deg abd, 85 deg ER at 90 deg abd, T12 IR PT-OP-M Strength Start: 08/23/23 16:14 Freq: Status: Active Protocol: Document 05/18/24 13:55 NM (Rec: 05/18/24 15:19 NM [id number]) Shoulder Strength Shoulder Manual Muscle Testing Right Extension 4 Good Abduction (C5) 4 Good External Rotation 4 Good Internal Rotation 4 Good Comments 05/22/24: 4+/5 ER/IR, 4/5 flex/ abd (3/10 pain with resistance - no change from baseline) 04/20/24: 4/5 flex/ER/abd/IR 03/23/24: 4/5 flex/ER/IR/abd 02/17/24: 4-/5 MMT flex,abd, ER with 4/10 pain; 4/5 IR painfree 01/04/24: Did not MMT shoulder flexion due to new protocols; no pain with other resisted motions 10/12/23 PN flex 3+/5 abd, ER 4-/5 IR 4/5 PT-OP-Q Treatments Start: 08/23/23 16:14 Freq: Status: Active Protocol: Document 05/18/24 13:55 NM (Rec: 05/18/24 15:19 NM [id number]) Therapeutic Exercises Sitting Exercises ER Sitting Exercise Name 90/90 supported Side right Resistance AROM> 1# db Reps/Minutes 10 ea Comments no increase in baseline pain, feels better Standing Exercises push up plus Standing Exercise Name wall push up: 1. field goal ( ER), 2. evelyn (IR) Equipment Used inclined on wall Reps/Minutes 2x5 ea Comments fatiguing; no inc in baseline pain D2 Standing Exercise Name 1. ext, 2. flex Side right Resistance level 1 Reps/Minutes 12 Comments cued for scap setting; no inc baseline pain Raises Standing Exercise Name lateral and scaption Side right Resistance AROM> 1# Reps/Minutes 2x10 Comments mirror for visual feedback; no UT comp w/ fatigue, cued prn for control Manual Therapy Treatment Soft Tissue Mobilization R biceps Body Location pectoralis Mobilization Type Cross-Friction,Rolling Intensity/Depth Superficial Body Position Supine Comments Flat hand performing gentle superficial rolling and cross friction from pec to biceps LH tendon and over proximal biceps. Reports relief with gentle ST< periscapular muscles Body Location R rhomboids, lat, Rotator cuff , pec Mobilization Type Rolling,Strumming,Sustained Pressure,Trigger Point Release Intensity/Depth Moderate Body Position Sidelying Comments Continues to have R lat tenderness near axilla, less than previous sessions but still present. No tenderness but demonstrates tightness of periscapulars and rotator cuff Self-Care/Home Management Treatment Education Patient Education Home Exercise Program Other Education HEP: Added scaption and lateral raises with 0-1#, D2 flex/ext with level 1 band. Educated to d/c if pain increases and to progress up to 3 sets once able. Pt to alternate between scaption/ lateral raises and sidelying flex/abd to toal 3x/wk PT-OP-R Modalities Start: 01/20/24 15:28 Freq: Status: Active Protocol: Document 05/18/24 13:55 NM (Rec: 05/18/24 15:19 NM [id number]) Hot Pack/Cold Pack Treatment Cold Pack Location R shoulder Patient Position Hooklying Patient Tolerance Good Comments Post-session per pt request. Skin assessed prior: no redness, abnormalities; pop within reach. Reports relief after session. 10 minutes PT-OP-T Assessment and Plan Start: 08/23/23 16:14 Freq: Status: Active Protocol: Document 05/18/24 13:55 NM (Rec: 05/18/24 15:19 NM [id number]) Physical Therapy Assessment Goals Strength Impairment Pt with R shoulder strength impairments Short Term Goal (STG) Pt with 3+/5 R shoulder strength. 09/29/23: Pt with 3+/5 R shoulder strength STG Duration 09/20/23-achieved Mcc Goal (LTG) Pt with >4/5 R shoulder strength, unless otherwise recommended per new protocol. 05/18/24: 4+/5 ER/IR, 4/5 flex/ abd (3/10 pain with resistance - no change from baseline) 03/23/24: 4/5 MMT for flex/abd/ ER/IR 11/29/23: R shoulder -4/5 for all motions 01/04/24: R shoulder 4-/5 for abd and ER, 4/5 for IR, flexion not tested per new protocol; PARTIALLY MET LTG Duration 06/15/24- 4/5 MMT ACHIEVED ; PROGRESSING w/ STRENGTH Quick Dash Impairment Pt with 70% R shoulder impairment per Quick Dash Short Term Goal (STG) Pt with 40% R shoulder impairment per Quick Dash 09/29/23: 61% on Quick dash, improved 10/12/23: Pt with 50% score on Quick dash, improved. 11/29/23: 31 or 45% Quickdash STG Duration 09/20/23 PROGRESSING Mcc Goal (LTG) Pt with <25% R shoulder impairment per Quick Dash to demonstrate improved QOL and pain management 05/18/24: 32 or 47.7% impairment-- NOT MET 04/20/24: 29 or 40% impairment- - NOT MET 03/23/24: 33 or 50% impairment- - NOT MET 11/29/23: 45% quickdash- NOT MET LTG Duration 06/15/24 NOT MET ROM Impairment Pt with 85 degrees of shoulder flexion/abduction AROM. Short Term Goal (STG) Pt with 110 degrees of shoulder flexion and abduction AROM. 09/29/23: Pt with 120 deg Flex and 118 deg abd. STG Duration 09/20/23 Mcc Goal (LTG) Pt with >145 deg of shoulder flexion and abduction AROM, > 120 deg flex PROM unless otherwise recommended with protocol. 05/18/24: 165 deg flex, 170 deg abd, 85 deg ER at 90 deg abd, T12 IR 03/23/24: 160 deg abd and flexion 12/16/23: Before 165 deg flex, 145 abd; After mobilization- 168 deg fwd flex and 170 deg abd without compensation or pain with both; ER is 80 deg at 90 deg abd with stretch feeling at biceps but no pain, full IR at 90 deg abd 01/04/24: 65 deg IR, 50 deg ER, 145 deg ABD, passive flexion LTG Duration 12/13/22 MET Pain Impairment Pt with reported pain at 9/10 at worst. Short Term Goal (STG) Pt with reported pain at 6/10 at worst. STG Duration 09/20/23 MET Mcc Goal (LTG) Pt will report no increase in baseline pain with ADLs. 05/18/24: currently 3-4/10 is baseline; no change w/ exercise in session or with ADLs today 03/23/24: pt reports that 7/10 is worse pain with ADLs, 4/10 pain at rest normally 11/29/22: 4/10 pain is best pain , worst pain is 6/10 01/04/24: Pain 5/10- NOT MET LTG Duration 06/15/24 GOAL UPDATED; PROGRESSING 05/18/24 Progress Towards Goals Progress Towards Goals Progressing Toward Goals,Goals Met Assessment Summary Assessment Pt tolerated session well, including progression in therapeutic exercise without increase in baseline pain. Pt reports consistently has been 3.5/10. Pt presents with R shoulder periscapular, chest, and posterior cuff muscle tightness; he continues to have lat tightness likely related to postural positioning at work, as he has less when he reports compliance with stretching. Muscle tension reduced with superficial to moderate soft tissue mobilization. Progressed from sidelying to standing lateral and scaption raises, in addition to D2 flex /ext with band. Pt has improved tolerance and form, demonstrating no upper trap compensation today even as fatiguing. His R shoulder fatigues quickly, which is limiting factor over pain; although pain continues to be unchanged. Trialed supported 90/90 R shoulder ER in sitting , which pt performed full ROM with light resistance and no change in pain. Depending on pt tolerance, will continue to progress pt into further abduction to strengthen rotator cuff. Physical Therapy Plan Frequency and Duration Frequency of Treatment 1-2/wk Duration of treatment (weeks) 12 Plan of Care Start Date 03/23/24 Plan of Care End Date 06/15/24 Therapeutic Interventions Therapeutic Interventions Home Exercise Program,Joint Mobilizations,Manual Therapy, Neuromuscular Re-education, Patient/Caregiver Education, Self-Care/Home Management,Soft Tissue Mobilization, Therapeutic Activities, Therapeutic Exercises Modalities Cold Pack/Ice Massage,Electric Stimulation,Hot Packs, Ultrasound Other Referrals/Consults Referrals/Consults Recommended Recommend imaging and further assessment of R shoulder due to painful popping and proximal R biceps pain persisting Next Visit Focus/Plan Next Note Type Treatment Note Next Visit Plan Per last surgeon note 02/08, progress to stage IV protocol* * If tolerated: scaption/lateral raises, PNF with ball vs therabar vs body blade, review - ER/IR at 0 deg abd w/ band, trial again 90/90 supported > unsupported AROM in standing > banded and same with IR, one arm rows, Manual: prn for pain relief
--- NOTE | 2024-06-06 15:50 | PT.OTN ---
Current Diagnoses Pain in right shoulder (06/06/24) Bursitis of right shoulder (06/06/24) Strain of muscle(s) and tendon(s) of the rotator cuff of right shoulder, initial encounter (06/06/24) Strain of unspecified muscle, fascia and tendon at shoulder and upper arm level, right arm, initial encounter (06/06/24) Physical Therapy Treatment Note PT-OP-A Visit Information Start: 08/23/23 16:14 Freq: Status: Active Protocol: Document 06/06/24 13:48 NM (Rec: 06/06/24 14:31 NM [id number]) Out-Patient Physical Therapy Visit Information Visit Information Visit Type Progress Note Visit Start Time 13:48 Visit Stop Time 14:38 Visit Number 12/09 PT-OP-B Current Condition Start: 08/23/23 16:14 Freq: Status: Active Protocol: Document 08/25/23 16:07 AM (Rec: 08/25/23 17:09 AM [id number]) Current Condition History of Current Condition Onset Date 07/06/23 Current Complaints R shoulder pain. History of Current Condition Pt had shoulder surgery on 07/06. Pt had a subacromial decompression/debridement with R shoulder arthroscopy, distal clavicle excision, biceps tenodesis. Pt was in a sling until the end of June. Pt reports previous R shoulder exploratory surgery in 2019. At that point he was having pain. Pt's initial injury was that he went to picker tender some boxes, felt it pop. Had numbness. Pt reports partial rotator cuff tear at that point. Pt just under 7 weeks out of surgery. PT-OP-C Subjective Start: 08/23/23 16:14 Freq: Status: Active Protocol: Document 06/06/24 13:48 NM (Rec: 06/06/24 14:31 NM [id number]) OP-PT Subjective Patient Comments Patient Comments Pt reports 3/10 R shoulder pain (baseline). States no improvements, states feels stagnant lately. Worked 99 hours a week, 16 hours a day for upcoming event, event ongoing for 9 weeks. Has not slept for several days and only [place] 48 hours due to work. Does not know when following up with Dr. Segura. States when he can do the HEP (reports 1x/day), they do not bother him. He does have mid scapular tightness, recently onset. Reports good tolerance to last session, no increase in pain only soreness lasting 1 day. Waiting for approval for more L&I auth PT-OP-J Posture/Palpation/Skin Start: 08/23/23 16:14 Freq: Status: Active Protocol: Document 08/23/23 16:15 AM (Rec: 08/23/23 17:36 AM [id number]) Posture Evaluation Position Sitting Evaluation View Lateral Head/C-Spine Posture Forward Head Shoulder Posture (L) Forward,(R) Forward Scapula Posture (L) Protracted,(R) Protracted Skin Assessment Incisional Assessment Incision Appearance/Comments Incisions healed PT-OP-K Range of Motion Start: 08/23/23 16:14 Freq: Status: Active Protocol: Document 06/06/24 13:48 NM (Rec: 06/06/24 14:31 NM [id number]) Shoulder Goniometric Range of Motion Shoulder Right Flexion 170 Abduction 170 External Rotation at 90 degrees 80 Abduction Internal Rotation Behind Back (text) T10 Comments 10/12/23 PN: flex 130 deg, abd 125 deg 11/29/23 PN: 140 deg flex, 140 deg abd, 50 deg ER at 45 deg abd 01/04/24: did not assess active flexion due to new precautions . Minimal pain reported with ER at pt end range. Last measured 12/16/23: pt had 80 deg ER and 80 deg IR at 90 deg abd, 168 deg fwd flex and 170 deg abd 02/17/24: 165 deg flex, 165 deg abd (pop with both), T12 IR, T4 ER apley, 65 deg ER (no pain) 03/23/24: 160 both flex and abd (no pop, states pain free), 70 deg ER (mild anterior shoulder pain) 04/20/24: 160 flex, 175 abd, 60 deg ER 0 deg abd, 70 deg at 90 deg abd (feels pull at cuff insertion) 05/18/24: 165 deg flex, 170 deg abd, 85 deg ER at 90 deg abd, T12 IR 06/06/24: 170 deg flex, 170 deg abd, 80 deg ER at 90/90, T10 IR PT-OP-M Strength Start: 08/23/23 16:14 Freq: Status: Active Protocol: Document 06/06/24 13:48 NM (Rec: 06/06/24 14:31 NM [id number]) Shoulder Strength Shoulder Manual Muscle Testing Right Flexion 4 Good Abduction (C5) 4 Good External Rotation 4+ Good+ Internal Rotation 4+ Good+ Comments 06/06/24, 05/22/24: 4+/5 ER/IR, 4/5 flex/abd (3/10 pain with resistance- no change from baseline) 04/20/24: 4/5 flex/ER/abd/IR 03/23/24: 4/5 flex/ER/IR/abd 02/17/24: 4-/5 MMT flex,abd, ER with 4/10 pain; 4/5 IR painfree 01/04/24: Did not MMT shoulder flexion due to new protocols; no pain with other resisted motions 10/12/23 PN flex 3+/5 abd, ER 4-/5 IR 4/5 PT-OP-Q Treatments Start: 08/23/23 16:14 Freq: Status: Active Protocol: Document 06/06/24 13:48 NM (Rec: 06/06/24 14:31 NM [id number]) Gym Equipment Cable Column (Body Solid) Rows Details B rows Resistance 40# Reps/Time 15 with 3 hold, contract- relax to reduce muscle tightness Therapeutic Exercises Standing Exercises 90/90 position Standing Exercise Name 1. IR, 2. trialed ER but d/c due to pain, 3. ER w/ 2.2# ball @ wall Side right Resistance level 1 band Equipment Used (states 4/10, but v uncomfortable w/ band) Reps/Minutes 1. 10 IR, 2. 2 ER, 3. 10 (pain free) Comments pain with ER due to constant band tension plyometrics Standing Exercise Name trial: 1. 90/90 ball toss at wall, 2. body blade: @ side, @ w/ elbow flex Side right Equipment Used 1. tennis ball, 2. small body blade Reps/Minutes 1. 30, 2. 60 ea position Comments no increase in baseline pain; good tolerance Raises Standing Exercise Name lateral and scaption Side bilateral Resistance 2# db Reps/Minutes 2x10 ea Comments mirror for visual feedback Manual Therapy Treatment Consent Patient gave verbal consent for manual Yes treatment Soft Tissue Mobilization chest Body Location pectoralis, scalenes, UT Comments Performed with functional movement IR. Reports good feedback with posterior gapping of humerus with depression at pec muscle, states feels really good periscapular muscles Body Location R rhomboids, lat, Rotator cuff , Mobilization Type Rolling,Strumming,Sustained Pressure,Trigger Point Release Intensity/Depth Moderate Body Position Sidelying Comments Less R lat tenderness near axilla, less than previous sessions but still present. No tenderness and demonstrates less tightness of periscapulars and rotator cuff PT-OP-R Modalities Start: 01/20/24 15:28 Freq: Status: Active Protocol: Document 06/06/24 13:48 NM (Rec: 06/06/24 14:31 NM [id number]) Hot Pack/Cold Pack Treatment Cold Pack Location R shoulder Patient Position Hooklying Patient Tolerance Good Comments Post-session per pt request. Skin assessed prior: no redness, abnormalities; pop within reach. Reports relief after session. 10 minutes PT-OP-T Assessment and Plan Start: 08/23/23 16:14 Freq: Status: Active Protocol: Document 06/06/24 13:48 NM (Rec: 06/06/24 14:31 NM [id number]) Physical Therapy Assessment Goals Strength Impairment Pt with R shoulder strength impairments Short Term Goal (STG) Pt with 3+/5 R shoulder strength. 09/29/23: Pt with 3+/5 R shoulder strength STG Duration 09/20/23-achieved [employer] Goal (LTG) Pt with >4/5 R shoulder strength, unless otherwise recommended per new protocol. 06/06/24, 05/18/24: 4+/5 ER/IR, 4/5 flex/abd (3/10 pain with resistance- no change from baseline) 03/23/24: 4/5 MMT for flex/abd/ ER/IR 11/29/23: R shoulder -4/5 for all motions 01/04/24: R shoulder 4-/5 for abd and ER, 4/5 for IR, flexion not tested per new protocol; PARTIALLY MET LTG Duration 06/15/24- 4/5 MMT ACHIEVED ; PROGRESSING w/ STRENGTH Quick Dash Impairment Pt with 70% R shoulder impairment per Quick Dash Short Term Goal (STG) Pt with 40% R shoulder impairment per Quick Dash 09/29/23: 61% on Quick dash, improved 10/12/23: Pt with 50% score on Quick dash, improved. 11/29/23: 31 or 45% Quickdash STG Duration 09/20/23 PROGRESSING [employer] Licensee Goal (LTG) Pt with <25% R shoulder impairment per Quick Dash to demonstrate improved QOL and pain management 05/18/24: 32 or 47.7% impairment-- NOT MET 04/20/24: 29 or 40% impairment- - NOT MET 03/23/24: 33 or 50% impairment- - NOT MET 11/29/23: 45% quickdash- NOT MET LTG Duration 06/15/24 NOT MET ROM Impairment Pt with 85 degrees of shoulder flexion/abduction AROM. Short Term Goal (STG) Pt with 110 degrees of shoulder flexion and abduction AROM. 09/29/23: Pt with 120 deg Flex and 118 deg abd. STG Duration 09/20/23 [employer] Service Licensee Goal (LTG) Pt with >145 deg of shoulder flexion and abduction AROM, > 120 deg flex PROM unless otherwise recommended with protocol. 05/18/24: 165 deg flex, 170 deg abd, 85 deg ER at 90 deg abd, T12 IR 03/23/24: 160 deg abd and flexion 12/16/23: Before 165 deg flex, 145 abd; After mobilization- 168 deg fwd flex and 170 deg abd without compensation or pain with both; ER is 80 deg at 90 deg abd with stretch feeling at biceps but no pain, full IR at 90 deg abd 01/04/24: 65 deg IR, 50 deg ER, 145 deg ABD, passive flexion LTG Duration 12/13/22 MET Pain Impairment Pt with reported pain at 9/10 at worst. Short Term Goal (STG) Pt with reported pain at 6/10 at worst. STG Duration 09/20/23 MET [facility] Goal (LTG) Pt will report no increase in baseline pain with ADLs. 06/06/24: 3/10 baseline pain at start of session and w/ ADLs, 4/10 with banded 90/90 ER but no change with other exercises 05/18/24: currently 3-4/10 is baseline; no change w/ exercise in session or with ADLs today 03/23/24: pt reports that 7/10 is worse pain with ADLs, 4/10 pain at rest normally 11/29/22: 4/10 pain is best pain , worst pain is 6/10 01/04/24: Pain 5/10- NOT MET LTG Duration 06/15/24 GOAL UPDATED; PROGRESSING 06/06/24 Progress Towards Goals Progress Towards Goals Progressing Toward Goals,Goals Met Progress Comments has not met quickdash goal. progressing toward strength goals Assessment Summary Assessment Pt tolerated session well, remaining at baseline 3/10 pain level throughout session. Overall, pt has less tenderness along rotator cuff and lat today; however, he does have increased tightness of periscapulars, reduced with resisted rows. He has good tolerance for ther-ex today, progressed to 2# for raises. He has minimal upper trapezius compensation with fatigue and is able to self correct 75% of the time. Due to good tolerance for supported 90/90 last session, trialed resisted ER and IR at 90/90. Pt able to perfrom R shoulder IR without any discomfort but has mild increase in R shoulder pain with resisted ER with band but none with free-weight . Pt still fatigues easily but demonstrates better form, tolerance, and carryover between sessions. Physical Therapy Plan Frequency and Duration Frequency of Treatment 1-2/wk Duration of treatment (weeks) 10 Plan of Care Start Date 06/06/24 Plan of Care End Date 08/24/24 Therapeutic Interventions Therapeutic Interventions Home Exercise Program,Joint Mobilizations,Manual Therapy, Neuromuscular Re-education, Patient/Caregiver Education, Self-Care/Home Management,Soft Tissue Mobilization, Therapeutic Activities, Therapeutic Exercises Modalities Cold Pack/Ice Massage,Electric Stimulation,Hot Packs, Ultrasound Other Referrals/Consults Referrals/Consults Recommended Recommend imaging and further assessment of R shoulder due to painful popping and proximal R biceps pain persisting Next Visit Focus/Plan Next Note Type Treatment Note Next Visit Plan Per last surgeon note 02/08, progress to stage IV protocol* * If tolerated: scaption/lateral raises, PNF with ball, body blade (raise into abd as tolerated), trial snow jovany/W (45 deg to 90 deg with band), trial again 90/90 unsupported AROM and with resistance in standing > banded and same with IR, row to ER. Bench press on table with low level weights, progress push up and plank Manual: prn for pain relief
--- NOTE | 2024-06-06 15:52 | PT.OPPOC ---
Physical, Occupational & Speech Therapy At [facility] Current Diagnoses Pain in right shoulder (06/06/24) Bursitis of right shoulder (06/06/24) Strain of muscle(s) and tendon(s) of the rotator cuff of right shoulder, initial encounter (06/06/24) Strain of unspecified muscle, fascia and tendon at shoulder and upper arm level, right arm, initial encounter (06/06/24) Visit Care Team Role Provider Type MERLYN Nunes Family Provider Non-Staff Primary Care Provider Specialty: Family Practice Address: [address] [place] [address], [id number] Email: Kvng Abernathy PA-C Attending Provider Non-Staff Referring Provider Specialty: Medical Address: [address] [place] [address], [id number] Phone: Email: Plan Of Care PT-OP-T Assessment and Plan Start: 08/23/23 16:14 Freq: Status: Active Protocol: Document 06/06/24 13:48 NM (Rec: 06/06/24 14:31 NM [id number]) Physical Therapy Assessment Goals Strength Impairment Pt with R shoulder strength impairments Short Term Goal (STG) Pt with 3+/5 R shoulder strength. 09/29/23: Pt with 3+/5 R shoulder strength STG Duration 09/20/23-achieved Care Home Goal (LTG) Pt with >4/5 R shoulder strength, unless otherwise recommended per new protocol. 06/06/24, 05/18/24: 4+/5 ER/IR, 4/5 flex/abd (3/10 pain with resistance- no change from baseline) 03/23/24: 4/5 MMT for flex/abd/ ER/IR 11/29/23: R shoulder -4/5 for all motions 01/04/24: R shoulder 4-/5 for abd and ER, 4/5 for IR, flexion not tested per new protocol; PARTIALLY MET LTG Duration 06/15/24- 4/5 MMT ACHIEVED ; PROGRESSING w/ STRENGTH Quick Dash Impairment Pt with 70% R shoulder impairment per Quick Dash Short Term Goal (STG) Pt with 40% R shoulder impairment per Quick Dash 09/29/23: 61% on Quick dash, improved 10/12/23: Pt with 50% score on Quick dash, improved. 11/29/23: 31 or 45% Quickdash STG Duration 09/20/23 PROGRESSING [employer] Goal (LTG) Pt with <25% R shoulder impairment per Quick Dash to demonstrate improved QOL and pain management 05/18/24: 32 or 47.7% impairment-- NOT MET 04/20/24: 29 or 40% impairment- - NOT MET 03/23/24: 33 or 50% impairment- - NOT MET 11/29/23: 45% quickdash- NOT MET LTG Duration 06/15/24 NOT MET ROM Impairment Pt with 85 degrees of shoulder flexion/abduction AROM. Short Term Goal (STG) Pt with 110 degrees of shoulder flexion and abduction AROM. 09/29/23: Pt with 120 deg Flex and 118 deg abd. STG Duration 09/20/23 [employer] Goal (LTG) Pt with >145 deg of shoulder flexion and abduction AROM, > 120 deg flex PROM unless otherwise recommended with protocol. 05/18/24: 165 deg flex, 170 deg abd, 85 deg ER at 90 deg abd, T12 IR 03/23/24: 160 deg abd and flexion 12/16/23: Before 165 deg flex, 145 abd; After mobilization- 168 deg fwd flex and 170 deg abd without compensation or pain with both; ER is 80 deg at 90 deg abd with stretch feeling at biceps but no pain, full IR at 90 deg abd 01/04/24: 65 deg IR, 50 deg ER, 145 deg ABD, passive flexion LTG Duration 12/13/22 MET Pain Impairment Pt with reported pain at 9/10 at worst. Short Term Goal (STG) Pt with reported pain at 6/10 at worst. STG Duration 09/20/23 MET Care Home Goal (LTG) Pt will report no increase in baseline pain with ADLs. 06/06/24: 3/10 baseline pain at start of session and w/ ADLs, 4/10 with banded 90/90 ER but no change with other exercises 05/18/24: currently 3-4 is baseline; no change w/ exercise in session or with ADLs today 03/23/24: pt reports that 7/10 is worse pain with ADLs, 4/10 pain at rest normally 11/29/22: 4/10 pain is best pain , worst pain is 6/10 01/04/24: Pain 5/10- NOT MET LTG Duration 06/15/24 GOAL UPDATED; PROGRESSING 06/06/24 Progress Towards Goals Progress Towards Goals Progressing Toward Goals,Goals Met Progress Comments has not met quickdash goal. progressing toward strength goals Assessment Summary Assessment Pt was evaluated in July 2023 s/p R SAD. He is slowly progressing toward goals, especially strengthening and pain management. Pt has full R shoulder ROM, only reporting mild discomfort with eccentric abduction lowering mid range but with less frequency than before. Pt's strength is improving as well, but he continues to have limitations in R shoulder flexion/ abduction due to mild pain and weakness. Pt's significant limiting factor is his ability to manage pain, largely due to outside influences including job/family/ADL requirements, sleep, and personal health. He consistently has been 3/10 for his R shoulder baseline pain levels for for past several visits over several weeks. Pt is progressing very slowly with his strengthening in PT sessions per protocol, only now progressing to small dumbbells. Pt is also progressing slowly up toward 90/90 position and overhead movements. He is able to perform machine weights without change in baseline symptoms. He continues to report R shoulder aggravation in 90/90 abduction position with ER if tension is constant , which is similar to December when pt was regressed in protocol by surgeon's office. He would benefit from further R shoulder strengthening at this time; however, pt may benefit from further assessment by referring surgeon and pain management if he does not make further progress with either strength or pain. Physical Therapy Plan Frequency and Duration Frequency of Treatment 1-2/wk Duration of treatment (weeks) 10 Plan of Care Start Date 06/06/24 Plan of Care End Date 08/24/24 Therapeutic Interventions Therapeutic Interventions Home Exercise Program,Joint Mobilizations,Manual Therapy, Neuromuscular Re-education, Patient/Caregiver Education, Self-Care/Home Management,Soft Tissue Mobilization, Therapeutic Activities, Therapeutic Exercises Modalities Cold Pack/Ice Massage,Electric Stimulation,Hot Packs, Ultrasound Other Referrals/Consults Referrals/Consults Recommended Recommend imaging and further assessment of R shoulder due to painful popping and proximal R biceps pain persisting Next Visit Focus/Plan Next Note Type Treatment Note Next Visit Plan Per last surgeon note 02/08, progress to stage IV protocol* * If tolerated: scaption/lateral raises, PNF with ball, body blade (raise into abd as tolerated), trial snow jovany/W (45 deg to 90 deg with band), trial again 90/90 unsupported AROM and with resistance in standing > banded and same with IR, row to ER. Bench press on table with low level weights, progress push up and plank Manual: prn for pain relief Plan of Care Dates Plan of Care Start Date 06/06/24 Plan of Care End Date 08/24/24 Electronically Signed by: Vandana Bob, PT 06/18/24 [id number] If you are in agreement with this Plan of Care, please return a signed and dated copy. I have reviewed this Plan of Care and certify that the skilled therapy services above are required to meet the patient?s needs. Physician Signature Date Printed Name and Credentials Clinical Instructor Signature Printed Name and Credentials
--- NOTE | 2024-06-18 12:43 | PT.OPPOC ---
Physical, Occupational & Speech Therapy At [facility] Current Diagnoses Pain in right shoulder (06/06/24) Bursitis of right shoulder (06/06/24) Strain of muscle(s) and tendon(s) of the rotator cuff of right shoulder, initial encounter (06/06/24) Strain of unspecified muscle, fascia and tendon at shoulder and upper arm level, right arm, initial encounter (06/06/24) Visit Care Team Role Provider Type MERLYN Nunes Family Provider Non-Staff Primary Care Provider Specialty: Family Practice Address: [address] [place] [address], [id number] Email: Kvng Abernathy PA-C Attending Provider Non-Staff Referring Provider Specialty: Medical Address: [address] [place] [address], [address] Phone: Email: Plan Of Care PT-OP-T Assessment and Plan Start: 08/23/23 16:14 Freq: Status: Active Protocol: Document 06/06/24 13:48 NM (Rec: 06/06/24 14:31 NM [id number]) Physical Therapy Assessment Goals Strength Impairment Pt with R shoulder strength impairments Short Term Goal (STG) Pt with 3+/5 R shoulder strength. 09/29/23: Pt with 3+/5 R shoulder strength STG Duration 09/20/23-achieved Mcc Goal (LTG) Pt with >4/5 R shoulder strength, unless otherwise recommended per new protocol. 06/06/24, 05/18/24: 4+/5 ER/IR, 4/5 flex/abd (3/10 pain with resistance- no change from baseline) 03/23/24: 4/5 MMT for flex/abd/ ER/IR 11/29/23: R shoulder -4/5 for all motions 01/04/24: R shoulder 4-/5 for abd and ER, 4/5 for IR, flexion not tested per new protocol; PARTIALLY MET LTG Duration 06/15/24- 4/5 MMT ACHIEVED ; PROGRESSING w/ STRENGTH Quick Dash Impairment Pt with 70% R shoulder impairment per Quick Dash Short Term Goal (STG) Pt with 40% R shoulder impairment per Quick Dash 09/29/23: 61% on Quick dash, improved 10/12/23: Pt with 50% score on Quick dash, improved. 11/29/23: 31 or 45% Quickdash STG Duration 09/20/23 PROGRESSING Director Of Accounting Goal (LTG) Pt with <25% R shoulder impairment per Quick Dash to demonstrate improved QOL and pain management 05/18/24: 32 or 47.7% impairment-- NOT MET 04/20/24: 29 or 40% impairment- - NOT MET 03/23/24: 33 or 50% impairment- - NOT MET 11/29/23: 45% quickdash- NOT MET LTG Duration 06/15/24 NOT MET ROM Impairment Pt with 85 degrees of shoulder flexion/abduction AROM. Short Term Goal (STG) Pt with 110 degrees of shoulder flexion and abduction AROM. 09/29/23: Pt with 120 deg Flex and 118 deg abd. STG Duration 09/20/23 Director Of Accounting Goal (LTG) Pt with >145 deg of shoulder flexion and abduction AROM, > 120 deg flex PROM unless otherwise recommended with protocol. 05/18/24: 165 deg flex, 170 deg abd, 85 deg ER at 90 deg abd, T12 IR 03/23/24: 160 deg abd and flexion 12/16/23: Before 165 deg flex, 145 abd; After mobilization- 168 deg fwd flex and 170 deg abd without compensation or pain with both; ER is 80 deg at 90 deg abd with stretch feeling at biceps but no pain, full IR at 90 deg abd 01/04/24: 65 deg IR, 50 deg ER, 145 deg ABD, passive flexion LTG Duration 12/13/22 MET Pain Impairment Pt with reported pain at 9/10 at worst. Short Term Goal (STG) Pt with reported pain at 6/10 at worst. STG Duration 09/20/23 MET Mcc Goal (LTG) Pt will report no increase in baseline pain with ADLs. 06/06/24: 3/10 baseline pain at start of session and w/ ADLs, 4/10 with banded 90/90 ER but no change with other exercises 05/18/24: currently 3-4 is baseline; no change w/ exercise in session or with ADLs today 03/23/24: pt reports that 7/10 is worse pain with ADLs, 4/10 pain at rest normally 11/29/22: 4/10 pain is best pain , worst pain is 6/10 01/04/24: Pain 5/10- NOT MET LTG Duration 06/15/24 GOAL UPDATED; PROGRESSING 06/06/24 Progress Towards Goals Progress Towards Goals Progressing Toward Goals,Goals Met Progress Comments has not met quickdash goal. progressing toward strength goals Assessment Summary Assessment Pt was evaluated in July 2023 s/p R SAD. He is slowly progressing toward goals, especially strengthening and pain management. Pt has full R shoulder ROM, only reporting mild discomfort with eccentric abduction lowering mid range but with less frequency than before. Pt's strength is improving as well, but he continues to have limitations in R shoulder flexion/ abduction due to mild pain and weakness. Pt's significant limiting factor is his ability to manage pain, largely due to outside influences including job/family/ADL requirements, sleep, and personal health. He consistently has been 3/10 for his R shoulder baseline pain levels for for past several visits over several weeks. Pt is progressing very slowly with his strengthening in PT sessions per protocol, only now progressing to small dumbbells. Pt is also progressing slowly up toward 90/90 position and overhead movements. He is able to perform machine weights without change in baseline symptoms. He continues to report R shoulder aggravation in 90/90 abduction position with ER if tension is constant , which is similar to December when pt was regressed in protocol by surgeon's office. He would benefit from further R shoulder strengthening at this time; however, pt may benefit from further assessment by referring surgeon and pain management if he does not make further progress with either strength or pain. Physical Therapy Plan Frequency and Duration Frequency of Treatment 1-2/wk Duration of treatment (weeks) 10 Plan of Care Start Date 06/06/24 Plan of Care End Date 08/24/24 Therapeutic Interventions Therapeutic Interventions Home Exercise Program,Joint Mobilizations,Manual Therapy, Neuromuscular Re-education, Patient/Caregiver Education, Self-Care/Home Management,Soft Tissue Mobilization, Therapeutic Activities, Therapeutic Exercises Modalities Cold Pack/Ice Massage,Electric Stimulation,Hot Packs, Ultrasound Other Referrals/Consults Referrals/Consults Recommended Recommend imaging and further assessment of R shoulder due to painful popping and proximal R biceps pain persisting Next Visit Focus/Plan Next Note Type Treatment Note Next Visit Plan Per last surgeon note 02/08, progress to stage IV protocol* * If tolerated: scaption/lateral raises, PNF with ball, body blade (raise into abd as tolerated), trial snow jovany/W (45 deg to 90 deg with band), trial again 90/90 unsupported AROM and with resistance in standing > banded and same with IR, row to ER. Bench press on table with low level weights, progress push up and plank Manual: prn for pain relief Plan of Care Dates Plan of Care Start Date 06/06/24 Plan of Care End Date 08/24/24 Electronically Signed by: Vandana Bob, PT 06/18/24 [id number] If you are in agreement with this Plan of Care, please return a signed and dated copy. I have reviewed this Plan of Care and certify that the skilled therapy services above are required to meet the patient?s needs. Physician Signature Date Printed Name and Credentials Clinical Instructor Signature Printed Name and Credentials
--- NOTE | 2024-06-18 12:52 | PT.OPDS ---
Current Diagnoses Pain in right shoulder (06/06/24) Bursitis of right shoulder (06/06/24) Strain of muscle(s) and tendon(s) of the rotator cuff of right shoulder, initial encounter (06/06/24) Strain of unspecified muscle, fascia and tendon at shoulder and upper arm level, right arm, initial encounter (06/06/24) Visit Care Team Role Provider Type MERLYN Nunes Family Provider Non-Staff Primary Care Provider Specialty: Family Practice Address: [address] [place] [address], [phone] Email: Kvng Abernathy PA-C Attending Provider Non-Staff Referring Provider Specialty: Medical Address: [address] [place] [address], [address] Phone: Email: Visit Number Visit Number 12/09 Discharge Summary PT-OP-B Current Condition Start: 08/23/23 16:14 Freq: Status: Active Protocol: Document 08/25/23 16:07 AM (Rec: 08/25/23 17:09 AM [id number]) Current Condition History of Current Condition Onset Date 07/06/23 Current Complaints R shoulder pain. History of Current Condition Pt had shoulder surgery on 07/06. Pt had a subacromial decompression/debridement with R shoulder arthroscopy, distal clavicle excision, biceps tenodesis. Pt was in a sling until the end of June. Pt reports previous R shoulder exploratory surgery in 2019. At that point he was having pain. Pt's initial injury was that he went to pick up attendant some boxes, felt it pop. Had numbness. Pt reports partial rotator cuff tear at that point. Pt just under 7 weeks out of surgery. PT-OP-C Subjective Start: 08/23/23 16:14 Freq: Status: Active Protocol: Document 06/06/24 13:48 NM (Rec: 06/06/24 14:31 NM [id number]) OP-PT Subjective Patient Comments Patient Comments Pt reports 3/10 R shoulder pain (baseline). States no improvements, states feels stagnant lately. Worked 99 hours a week, 16 hours a day for upcoming event, event ongoing for 9 weeks. Has not slept for several days and only [place] 48 hours due to work. Does not know when following up with Dr. Segura. States when he can do the HEP (reports 1x/day), they do not bother him. He does have mid scapular tightness, recently onset. Reports good tolerance to last session, no increase in pain only soreness lasting 1 day. Waiting for approval for more L&I auth PT-OP-J Posture/Palpation/Skin Start: 08/23/23 16:14 Freq: Status: Active Protocol: Document 08/23/23 16:15 AM (Rec: 08/23/23 17:36 AM [id number]) Posture Evaluation Position Sitting Evaluation View Lateral Head/C-Spine Posture Forward Head Shoulder Posture (L) Forward,(R) Forward Scapula Posture (L) Protracted,(R) Protracted Skin Assessment Incisional Assessment Incision Appearance/Comments Incisions healed PT-OP-K Range of Motion Start: 08/23/23 16:14 Freq: Status: Active Protocol: Document 06/06/24 13:48 NM (Rec: 06/06/24 14:31 NM [id number]) Shoulder Goniometric Range of Motion Shoulder Right Flexion 170 Abduction 170 External Rotation at 90 degrees 80 Abduction Internal Rotation Behind Back (text) T10 Comments 10/12/23 PN: flex 130 deg, abd 125 deg 11/29/23 PN: 140 deg flex, 140 deg abd, 50 deg ER at 45 deg abd 01/04/24: did not assess active flexion due to new precautions . Minimal pain reported with ER at pt end range. Last measured 12/16/23: pt had 80 deg ER and 80 deg IR at 90 deg abd, 168 deg fwd flex and 170 deg abd 02/17/24: 165 deg flex, 165 deg abd (pop with both), T12 IR, T4 ER apley, 65 deg ER (no pain) 03/23/24: 160 both flex and abd (no pop, states pain free), 70 deg ER (mild anterior shoulder pain) 04/20/24: 160 flex, 175 abd, 60 deg ER 0 deg abd, 70 deg at 90 deg abd (feels pull at cuff insertion) 05/18/24: 165 deg flex, 170 deg abd, 85 deg ER at 90 deg abd, T12 IR 06/06/24: 170 deg flex, 170 deg abd, 80 deg ER at 90/90, T10 IR PT-OP-M Strength Start: 08/23/23 16:14 Freq: Status: Active Protocol: Document 06/06/24 13:48 NM (Rec: 06/06/24 14:31 NM [id number]) Shoulder Strength Shoulder Manual Muscle Testing Right Flexion 4 Good Abduction (C5) 4 Good External Rotation 4+ Good+ Internal Rotation 4+ Good+ Comments 06/06/24, 05/22/24: 4+/5 ER/IR, 4/5 flex/abd (3/10 pain with resistance- no change from baseline) 04/20/24: 4/5 flex/ER/abd/IR 03/23/24: 4/5 flex/ER/IR/abd 02/17/24: 4-/5 MMT flex,abd, ER with 4/10 pain; 4/5 IR painfree 01/04/24: Did not MMT shoulder flexion due to new protocols; no pain with other resisted motions 10/12/23 PN flex 3+/5 abd, ER 4-/5 IR 4/5 PT-OP-T Assessment and Plan Start: 08/23/23 16:14 Freq: Status: Active Protocol: Document 06/18/24 12:45 NM (Rec: 06/18/24 12:52 NM [id number]) Physical Therapy Assessment Goals Strength Impairment Pt with R shoulder strength impairments Short Term Goal (STG) Pt with 3+/5 R shoulder strength. 09/29/23: Pt with 3+/5 R shoulder strength STG Duration 09/20/23-achieved Intermediate Goal (LTG) Pt with >4/5 R shoulder strength, unless otherwise recommended per new protocol. 06/06/24, 05/18/24: 4+/5 ER/IR, 4/5 flex/abd (3/10 pain with resistance- no change from baseline) 03/23/24: 4/5 MMT for flex/abd/ ER/IR 11/29/23: R shoulder -4/5 for all motions 01/04/24: R shoulder 4-/5 for abd and ER, 4/5 for IR, flexion not tested per new protocol; PARTIALLY MET LTG Duration 06/15/24- 4/5 MMT ACHIEVED ; PROGRESSING w/ STRENGTH Quick Dash Impairment Pt with 70% R shoulder impairment per Quick Dash Short Term Goal (STG) Pt with 40% R shoulder impairment per Quick Dash 09/29/23: 61% on Quick dash, improved 10/12/23: Pt with 50% score on Quick dash, improved. 11/29/23: 31 or 45% Quickdash STG Duration 09/20/23 PROGRESSING Gate Watch Goal (LTG) Pt with <25% R shoulder impairment per Quick Dash to demonstrate improved QOL and pain management 05/18/24: 32 or 47.7% impairment-- NOT MET 04/20/24: 29 or 40% impairment- - NOT MET 03/23/24: 33 or 50% impairment- - NOT MET 11/29/23: 45% quickdash- NOT MET LTG Duration 06/15/24 NOT MET ROM Impairment Pt with 85 degrees of shoulder flexion/abduction AROM. Short Term Goal (STG) Pt with 110 degrees of shoulder flexion and abduction AROM. 09/29/23: Pt with 120 deg Flex and 118 deg abd. STG Duration 09/20/23 Gate Watch Goal (LTG) Pt with >145 deg of shoulder flexion and abduction AROM, > 120 deg flex PROM unless otherwise recommended with protocol. 05/18/24: 165 deg flex, 170 deg abd, 85 deg ER at 90 deg abd, T12 IR 03/23/24: 160 deg abd and flexion 12/16/23: Before 165 deg flex, 145 abd; After mobilization- 168 deg fwd flex and 170 deg abd without compensation or pain with both; ER is 80 deg at 90 deg abd with stretch feeling at biceps but no pain, full IR at 90 deg abd 01/04/24: 65 deg IR, 50 deg ER, 145 deg ABD, passive flexion LTG Duration 12/13/22 MET Pain Impairment Pt with reported pain at 9/10 at worst. Short Term Goal (STG) Pt with reported pain at 6/10 at worst. STG Duration 09/20/23 MET Gate Watch Goal (LTG) Pt will report no increase in baseline pain with ADLs. 06/06/24: 3/10 baseline pain at start of session and w/ ADLs, 03/07 with banded 90/90 ER but no change with other exercises 05/18/24: currently 3-03/07 is baseline; no change w/ exercise in session or with ADLs today 03/23/24: pt reports that 7/10 is worse pain with ADLs, 4/10 pain at rest normally 11/29/22: 4/10 pain is best pain , worst pain is 6/10 01/04/24: Pain 5/10- NOT MET LTG Duration 06/15/24 GOAL UPDATED; PROGRESSING 06/06/24 Progress Towards Goals Progress Towards Goals Progressing Toward Goals,Goals Met Progress Comments has not met quickdash goal. progressing toward strength goals Assessment Summary Assessment Pt has been seen since July 2023 s/p R SAD. He is slowly progressing toward goals, specifically making progress with strengthening and pain management goals recently. Pt continues to report at least 3/10 baseline pain in R shoulder. He has full R shoulder ROM and recently began progression to low level resistance training. Pt reports mild discomfort with eccentric abduction lowering mid range but with less frequency. He continues to have limitations in R shoulder flexion/abduction due to mild pain and weakness. Pt still fatigues easily but demonstrates better form, tolerance, and carryover between sessions. Pt's significant limiting factor continues to be his ability to manage pain, largely due to outside influences including job/family/ADL requirements, sleep, and personal health. Pt has reached maximum number of OP PT visits authorized by L& I. No further visits approved. Pt will be discharged back to referring provider for further assessment. Physical Therapy Plan Frequency and Duration Frequency of Treatment 1-2/wk Duration of treatment (weeks) 10 Plan of Care Start Date 06/06/24 Plan of Care End Date 08/24/24 Therapeutic Interventions Therapeutic Interventions Home Exercise Program,Joint Mobilizations,Manual Therapy, Neuromuscular Re-education, Patient/Caregiver Education, Self-Care/Home Management,Soft Tissue Mobilization, Therapeutic Activities, Therapeutic Exercises Modalities Cold Pack/Ice Massage,Electric Stimulation,Hot Packs, Ultrasound Other Referrals/Consults Referrals/Consults Recommended Continue to recommend imaging and further assessment of R shoulder due to painful popping and proximal R biceps pain persisting with activity involving arm elevation. Pt would also benefit from a pain management evaluation to improve activity management and QOL Discharge Physical Therapy Discharge Reasons [place] in Progress Discharge Comments Pt has reached maximum number of OP PT visits authorized by L&I. No further visits approved. Pt will be discharged back to referring provider for further assessment. Next Visit Focus/Plan Next Visit Plan Discharge form OP PT
== END 2024-06-22 09:24 | disposition home or self-care (01) ==
LOC: PHYS 13:45
PROVIDERS: Family Provider Registered Nurse; PCP Registered Nurse; Referring Provider Physician Assistant; Visit Provider Physician Assistant
DX: M75.51 Bursitis of right shoulder (principal); S46.011A Strain of muscle(s) and tendon(s) of the rotator cuff of right shoulder, initial encounter; S46.911A Strain of unspecified muscle, fascia and tendon at shoulder and upper arm level, right arm, initial encounter; M25.511 Pain in right shoulder
CPT/HCPCS: 97110; 97140; 97161; 97164; 97535